=== PATIENT | male | born 1975 | race Caucasian/White ===

== ENCOUNTER 2019-12-01 16:21 | Outpatient (REF) | payer MEDICAID, SELFPAY ==
[2019-12-01 17:02] LABS: MANUAL DIFF FLAG NO
[2019-12-01 17:05] LABS: Basophils Percent Auto 0.4 % (0-2); Eosinophils Absolute Auto 0.1 X10*3/uL (0.0-0.4); Eosinophils Percent Auto 1.1 % (0-4); Hemoglobin 15.5 g/dl (14.0-18.0); Imm Gran Abs Auto 0.02 X10*3/uL (0.00-0.03); Imm Gran Pct Auto 0.2 % (0.0-0.4); Lymphocytes Absolute Auto 2.4 X10*3/uL (1.2-4.9); Lymphocytes Percent Auto 27.8 % (20-40); Mean Corpuscular HGB Conc 34.4 g/dl (31.0-36.0); Mean Corpuscular Hemoglobin 34.1 pg (27.0-33.0); Mean Corpuscular Volume 99.1 fL (80-98); Mean Platelet Volume 10.2 fL (9.4-12.4); Monocytes Absolute Auto 0.6 X10*3/uL (0.1-1.2); Monocytes Percent Auto 7.4 % (2-11); Neutrophils Absolute Auto 5.4 X10*3/uL (2.0-8.3); Neutrophils Percent Auto 63.1 % (45-73); Platelet Count 178 X10*3/uL (160-400); Red Blood Count 4.54 X10*6/uL (4.60-5.80); Red Cell Distribution Width 13.7 % (11.0-16.0); White Blood Count 8.6 X10*3/uL (4.8-10.8)
[2019-12-01 17:35] LABS: Alanine Aminotransferase 63 U/L (0-40); Alkaline Phosphatase 80 U/L (39-117); Anion Gap 11 (12-20); Aspartate Amino Transferase 56 U/L (5-37); Bilirubin Total 0.5 mg/dL (0.0-1.0); Blood Urea Nitrogen 10 mg/dL (9-16); C Reactive Protein 0.77 mg/dL (< or = 0.50); Calcium 9.3 mg/dL (8.4-10.2); Carbon Dioxide 28 mmol/L (22-29); Chloride 102 mmol/L (96-108); Estimated Glomerular Filt Rate > 60; Glucose Random 115 mg/dL (60-115); Potassium 3.9 mmol/l (3.3-5.1); Sodium 137 mmol/L (135-145); Total Protein 7.7 g/dL (6.5-8.0)
[2019-12-01 17:57] LABS: Vitamin B12 426 pg/mL (200-900)
== END 2019-12-01 16:22 | disposition home or self-care (01) ==
LOC: HO.LAB 16:21
PROVIDERS: PCP Family Medicine; Visit Provider Internal Medicine Gastroenterology
DX: K52.9 Noninfective gastroenteritis and colitis, unspecified (principal)
CPT/HCPCS: 36415; 80053; 82607; 85025; 86140

== ENCOUNTER → 2019-12-05 09:40 | Outpatient (BNVA) | payer MEDICAID, SELFPAY | PROVIDERS: PCP Family Medicine; Referring Provider Family Medicine; Visit Provider Internal Medicine Gastroenterology | DX: K74.69 Other cirrhosis of liver (principal); K31.7 Polyp of stomach and duodenum; G89.29 Other chronic pain; R10.13 Epigastric pain | CPT/HCPCS: 99213 ==

== ENCOUNTER 2019-12-24 11:33 | Emergency (ER) | payer MEDICAID, SELFPAY ==
[2019-12-24 11:40] VITALS: BP 126/80; PULSE 80; RESP 18; TEMP 36.3; O2SAT 98; BMI 38.0
--- NOTE | 2019-12-24 11:56 | ED.BACK ---
HPI - Back Pain/Injury General Chief Complaint: Back Pain/Injury Stated Complaint: left back side pain Time Seen by Provider: 12/24/19 11:41 Source: patient Mode of arrival: ambulatory History of Present Illness HPI Narrative: 44-year-old male presenting to ED complaining of acute on chronic L sided low back pain x7 days radiating to left thigh with associated tingling. Denies direct trauma/falls. Denies fever, chills, weakness, incontinence, retention MD elicited complaint: back pain Related Data Home Medications Medication Instructions Recorded Confirmed amlodipine 5 mg tablet 5 mg PO DAILY 11/15/19 baclofen 20 mg tablet 20 mg PO QID 11/15/19 chlorthalidone 25 mg tablet 25 mg PO DAILY 11/15/19 cholecalciferol (vitamin D3) 25 25 mcg PO DAILY 11/15/19 mcg (1,000 unit) tablet dexlansoprazole 60 mg 60 mg PO DAILY 11/15/19 capsule,biphase delayed release exenatide microspheres 2 mg/0.65 2 mg SUBCUT Q7D 11/15/19 mL subcutaneous pen injector insulin lispro 100 unit/mL 10.5 unit SUBCUT BEDTIME 11/15/19 subcutaneous half-unit pen lancets 33 gauge #100 ea 11/15/19 lisinopril 40 mg tablet 40 mg PO DAILY 11/15/19 metoprolol succinate 50 mg 50 mg PO DAILY 11/15/19 tablet,extended release 24 hr naproxen 500 mg tablet 500 mg PO BID 11/15/19 ondansetron 4 mg disintegrating 4 mg PO Q8H 11/15/19 tablet pen needle, diabetic 32 gauge x #50 ea 11/15/19 pentoxifylline 400 mg 400 mg PO BID 11/15/19 tablet,extended release sildenafil 100 mg tablet 100 mg PO DAILY PRN 11/15/19 tamsulosin 0.4 mg capsule 0.4 mg PO DAILY 11/15/19 tramadol 50 mg tablet 50 mg PO Q8H PRN 11/15/19 Previous Rx's Medication Instructions Recorded acetaminophen [Tylenol Extra 500 mg PO Q6H PRN #20 tab 12/24/19 Strength] cyclobenzaprine 5 mg PO Q8H PRN 5 Days #14 tab 12/24/19 lidocaine [Lidoderm] 1 patch TOPICAL DAILY PRN #30 ea 12/24/19 MDD remove after 12 hours naproxen 500 mg PO BID PRN 10 Days #20 tab 12/24/19 Allergies Allergy/AdvReac Type Severity Reaction Status Date / Time ranitidine [From ZANTAC] Allergy Severe DIFFICULTY Verified 12/24/19 11:44 BREATHING, ITCHING Review of Systems Review of Systems: Constitutional: No Weight loss, No Fever, No Chills Genitourinary: No dysuria, no hematuria, No Urinary Incontinence/retention, No Urgency, No Flank Pain Musculoskeletal: + joint pain, No Myalgias, No Joint Swelling Skin: No Skin Lesions, No rash Neuro: No Weakness, +tingling, No Paresthesias Yes all other systems are reviewed and are negative [facility] Past Medical History Attestation statement: The following information was validated with the patient. Medical History (Updated 12/24/19 @ 12:10 by SOURAV Paz) Chronic back pain Surgical History (Updated 12/05/19 @ 09:42 by Aubree Theodore MA) History of esophagogastroduodenoscopy (EGD) History of left knee surgery S/P cubital tunnel release Family History Family History (Updated 11/15/19 @ 12:40 by NERI Moreno) Father No problems noted. Mother HTN (hypertension) Sister Type II diabetes mellitus Social History Social History (Updated 12/05/19 @ 09:45 by Aubree Theodore MA) Alcohol intake: current Alcohol intake frequency: a few times a month Smoking Status: Current some day smoker Tobacco Type: Cigarette Advance Directives: No Advance Directives Information Provided: No Physical Exam Vital Signs: Vital Signs: Last Vital Signs Temp 97.3 F 12/24/19 11:40 Pulse 80 12/24/19 11:40 Resp 18 12/24/19 11:40 BP 126/80 12/24/19 11:40 Pulse Ox 98 12/24/19 11:40 Body Mass Index 38.0 Const: General: cooperative and healthy appearing Orientation/consciousness: patient oriented x3 Limitations: no limitations HENMT: Head: Yes normal to inspection Ears: hearing grossly normal bilaterally General nose exam: Normal external nose present Face and sinus: Yes normal facial exam Eyes: General: appearance normal, both eyes and all related structures EOM: EOMs intact bilaterally Neck: Other: No midline cervical spinous tenderness Neck: Yes normal visual inspection Resp: Effort & Inspection: normal respiratory effort : General: Yes no CVA tenderness Back/Spine/Pelvis: Other: No midline thoracic/lumbar spinous tenderness. + left-sided lumbar MSK tenderness/left buttock tenderness Back: no CVA tenderness Skin: Rashes: no rashes Wounds: no wounds Neuro: Other: No saddle anesthesia. Ambulating with limping gait General: patient oriented x3 Motor exam (neuro): 5/5 motor strength present throughout Extrem: General: Yes normal to inspection MDM - Back Pain/Injury MDM Narrative Medical decision making narrative: On exam VSS, NAD, no midline spinous tenderness throughout, no red flag symptoms. Likely MSK pain. Low concern for cauda equina or cord compression Patient has tramadol at home, reports has refill on Thursday Discharge Plan Discharge Clinical Impression: Lumbar radiculopathy, Sciatica Patient Disposition: Home, Self-Care Instructions: Acute Low Back Pain (ED) Additional Instructions: Your pain is likely musculoskeletal Flexeril is a muscle relaxer, take at night as it makes you drowsy, do not drive, drink alcohol, or operate machinery while taking it Naproxen as an anti-inflammatory / pain medication, take with food Lidoderm patches are numbing patches, apply to painful area In addition take Tylenol at home If symptoms persist or worsen, pain becomes unbearable, you developed urinary retention or incontinence, or weakness return to the ED Prescriptions: New acetaminophen [Tylenol Extra Strength] 500 mg tablet 500 mg PO Q6H PRN (Reason: pain or fever) Qty: 20 RF: 0 lidocaine [Lidoderm] 5 % adhesive patch,medicated 1 patch topical DAILY MDD remove after 12 hours PRN (Reason: pain) Qty: 30 RF: 0 naproxen 500 mg tablet 500 mg PO BID PRN (Reason: pain) 10 Days Qty: 20 RF: 0 cyclobenzaprine 5 mg tablet 5 mg PO Q8H PRN (Reason: pain (scale score 7-10)) 5 Days Qty: 14 RF: 0 Referrals: Hanna Ocasio MD [Primary Care Provider] - 2 days
[2019-12-24] MEDS: Cyclobenzaprine HCl 5 MG TABLET PO (12:05)
[2019-12-24] MEDS: Ketorolac Tromethamine 15 MG/ML VIAL IM (12:05)
--- NOTE | 2019-12-24 12:05 | PC.NURSE ---
SEEN BY PROVIDER. MEDIATED PER ORDERS
== END 2019-12-24 12:39 | disposition home or self-care (01) ==
PROVIDERS: Emergency Provider Emergency Medicine; PCP Family Medicine
DX: M54.42 Lumbago with sciatica, left side (principal); M54.41 Lumbago with sciatica, right side; M79.652 Pain in left thigh; Z79.899 Other long term (current) drug therapy; F17.210 Nicotine dependence, cigarettes, uncomplicated; Z71.6 Tobacco abuse counseling
CPT/HCPCS: 96372; 99283; 99284; J1885

== ENCOUNTER 2019-12-29 16:20 | Outpatient (REF) | payer MEDICAID, SELFPAY | END 2019-12-29 16:21 | disposition home or self-care (01) | LOC: HO.LAB 16:20 | PROVIDERS: Visit Provider Internal Medicine | DX: Z20.828 Contact with and (suspected) exposure to other viral communicable diseases (principal) | CPT/HCPCS: C9803; U0003 ==

== ENCOUNTER 2020-01-08 12:56 | Emergency (ER) | payer MEDICAID, SELFPAY ==
[2020-01-08 13:16] VITALS: BP 139/93; PULSE 94; RESP 20; TEMP 36.8; O2SAT 98; BMI 43.4
--- NOTE | 2020-01-08 13:41 | CT_ITS ---
EXAMINATION: CT ABDOMEN AND PELVIS WITHOUT CONTRAST CLINICAL INFORMATION: Left-sided flank pain COMPARISON: Previous abdominal ultrasound October 2018, MRI February [address] of the abdomen and pelvis October 2012 TECHNIQUE: Multidetector volumetric imaging was performed from the superior aspect of the liver through the pubic symphysis. Sagittal and coronal reformatted images were obtained on the technologist's workstation. This CT examination was performed using dose optimization techniques as appropriate, variously including the following: *Automated exposure control *Adjustment of mA and/or kV according to patient size (this includes techniques or standardized protocols for targeted exams where dose is matched to indication/reason for exam; i.e. extremities or head) *Use of iterative reconstruction technique DLP: 937 mGy-cm FINDINGS: LUNG BASES: There is a 2.7 x 3.6 cm area of groundglass attenuation in the right middle lobe axial image 6 series 7. There is a 2.3 x 4 cm groundglass attenuation area seen in the left lower lobe. This is not seen on previous CT from 2012. LIVER, GALLBLADDER, AND BILIARY TREE: The contour of the liver is slightly scalloped or irregular questionable for mild cirrhosis. No focal liver lesion is seen. There is high attenuation dependently in the gallbladder suggestive of small gallstones. There is no biliary duct dilatation. PANCREAS: Unremarkable. SPLEEN: The spleen is slightly enlarged measuring 17 cm in greatest dimension sagittal reconstructed image 47. ADRENAL GLANDS: Unremarkable. KIDNEYS AND URETERS: The kidneys are normal in size, shape, and attenuation. No hydronephrosis, hydroureter, or calculi seen. No perinephric stranding. BLADDER: Not optimally distended GASTROINTESTINAL TRACT: There is mild diverticulosis of the colon. Small and large bowel is otherwise unremarkable. The appendix is unremarkable. ABDOMINAL WALL: There is a small umbilical hernia containing fat. LYMPH NODES: Normal. VASCULAR: Unremarkable. PELVIC VISCERA: Unremarkable. OSSEOUS STRUCTURES: There are degenerative changes of the spine. CT/CT abdomen pelvis wo con IMPRESSION: Cirrhotic-appearing liver. Probable gallstones. Mild splenomegaly. Mild diverticulosis of the colon. Groundglass attenuation areas at the lung bases in the right middle and left lower lobes. This is a nonspecific finding. This probably represents an infectious or inflammatory process. Covid infection should be excluded.
[2020-01-08] MEDS: Ketorolac Tromethamine 60 MG/2 ML VIAL IM (13:51)
[2020-01-08 14:07] LABS: Basophils Percent Auto 0.2 % (0-2); Eosinophils Percent Auto 0.5 % (0-4); Hematocrit 47.2 % (42-52); Hemoglobin 16.1 g/dl (14.0-18.0); Imm Gran Abs Auto 0.01 X10*3/uL (0.00-0.03); Imm Gran Pct Auto 0.2 % (0.0-0.4); Lymphocytes Absolute Auto 2.2 X10*3/uL (1.2-4.9); Lymphocytes Percent Auto 37.4 % (20-40); MANUAL DIFF FLAG NO; Mean Corpuscular HGB Conc 34.1 g/dl (31.0-36.0); Mean Corpuscular Hemoglobin 33.8 pg (27.0-33.0); Mean Corpuscular Volume 99.2 fL (80-98); Mean Platelet Volume 10.2 fL (9.4-12.4); Monocytes Absolute Auto 0.6 X10*3/uL (0.1-1.2); Monocytes Percent Auto 10.8 % (2-11); Neutrophils Percent Auto 50.9 % (45-73); Platelet Count 149 X10*3/uL (160-400); Red Blood Count 4.76 X10*6/uL (4.60-5.80); Red Cell Distribution Width 13.4 % (11.0-16.0); White Blood Count 5.9 X10*3/uL (4.8-10.8)
[2020-01-08 14:11] LABS: Glucose Urine UA NEG (NEG); Leukocyte Esterase Urine NEG (NEG); Nitrite Urine NEG (NEG); PH 6.5 (5.0-8.0); Specific Gravity - Urine 1.025 (1.005-1.025); Urine Blood NEG (NEG); Urine Ketones 5 MG/DL (NEG); Urine Protein NEG (NEG-TRACE)
[2020-01-08 14:14] LABS: Appearance Urine CLEAR; Color Urine DARK YELLOW
[2020-01-08 14:23] LABS: Mucus Urine 1+ /LPF; RBC Urine 0-2 /HPF (0); Squamous Epithelial Cell Urine 1+ /LPF; WBC Urine 0 /HPF (0-4)
[2020-01-08 14:30] LABS: Alanine Aminotransferase 68 U/L (0-40); Albumin Level 3.8 g/dL (3.5-5.0); Alkaline Phosphatase 81 U/L (39-117); Anion Gap 11 (12-20); Aspartate Amino Transferase 63 U/L (5-37); Bilirubin Total 0.2 mg/dL (0.0-1.0); Blood Urea Nitrogen 12 mg/dL (9-16); Calcium 8.6 mg/dL (8.4-10.2); Carbon Dioxide 26 mmol/L (22-29); Chloride 104 mmol/L (96-108); Creatinine Clr Calc Pharmacy 158.4; Estimated Glomerular Filt Rate > 60; Glucose Random 115 mg/dL (60-115); Potassium 3.9 mmol/l (3.3-5.1); Sodium 137 mmol/L (135-145); Total Protein 7.6 g/dL (6.5-8.0)
[2020-01-08 14:43] VITALS: BP 132/72; PULSE 82; RESP 18; TEMP 36.8; O2SAT 100
--- NOTE | 2020-01-08 16:17 | ED_ITS ---
HPI - Back Pain/Injury General Chief Complaint: Back Pain/Injury Stated Complaint: back pain Time Seen by Provider: 01/08/20 13:41 Source: patient Mode of arrival: ambulatory Limitations: no limitations History of Present Illness HPI Narrative: With history of hypertension, type 2 diabetes and obesity presenting with complaint of this lower back pain ongoing for past 2 weeks or so pain is describes as intermittent and ache-like. States was here 2 weeks ago given course of NSAID, muscle relaxants which has some improvement however pain continues and he returned today. Denies any GI symptoms. Slight rhinorrhea which contributes to seasonal allergies. No chest pain or shortness of breath. MD elicited complaint: back pain Pertinent past history: prior back pain Onset (ago): day(s) Timing: intermittent Severity: moderate Similar Symptoms Previously: Yes Quality: aching Location: lumbar spine Radiation: other (Sometimes will travel down the left leg) Exacerbating factors: none Associated symptoms: denies other symptoms Treatments prior to arrival: cold therapy Work related injury: No Related Data Home Medications Medication Instructions Recorded Confirmed amlodipine 5 mg tablet 5 mg PO DAILY 11/15/19 baclofen 20 mg tablet 20 mg PO QID 11/15/19 chlorthalidone 25 mg tablet 25 mg PO DAILY 11/15/19 cholecalciferol (vitamin D3) 25 25 mcg PO DAILY 11/15/19 mcg (1,000 unit) tablet dexlansoprazole 60 mg 60 mg PO DAILY 11/15/19 capsule,biphase delayed release exenatide microspheres 2 mg/0.65 2 mg SUBCUT Q7D 11/15/19 mL subcutaneous pen injector insulin lispro 100 unit/mL 10.5 unit SUBCUT BEDTIME 11/15/19 subcutaneous half-unit pen lancets 33 gauge #100 11/15/19 lisinopril 40 mg tablet 40 mg PO DAILY 11/15/19 metoprolol succinate 50 mg 50 mg PO DAILY 11/15/19 tablet,extended release 24 hr naproxen 500 mg tablet 500 mg PO BID 11/15/19 ondansetron 4 mg disintegrating 4 mg PO Q8H 11/15/19 tablet pen needle, diabetic 32 gauge x #50 11/15/19 pentoxifylline 400 mg 400 mg PO BID 11/15/19 tablet,extended release sildenafil 100 mg tablet 100 mg PO DAILY PRN 09/29/20 tamsulosin 0.4 mg capsule 0.4 mg PO DAILY 11/15/19 Previous Rx's Medication Instructions Recorded acetaminophen [Tylenol Extra 500 mg PO Q6H PRN #20 tab 12/24/19 Strength] cyclobenzaprine 5 mg PO Q8H PRN 5 Days #14 tab 12/24/19 lidocaine [Lidoderm] 1 patch TOPICAL DAILY PRN #30 ea 12/24/19 MDD remove after 12 hours naproxen 500 mg PO BID PRN 10 Days #20 tab 12/24/19 azithromycin [Zithromax Z-Keith] 250 mg PO DAILY 5 Days #6 tab 01/08/20 ibuprofen 800 mg PO Q8H PRN #30 tab 01/08/20 oxycodone 5 mg PO BID PRN #7 tab 01/08/20 prednisone 40 mg PO DAILY 5 Days #10 tab 01/08/20 Allergies Allergy/AdvReac Type Severity Reaction Status Date / Time ranitidine [From ZANTAC] Allergy Severe DIFFICULTY Verified 12/24/19 11:44 BREATHING, ITCHING Review of Systems Review of Systems: Constitutional: No Weight loss, No Fever, No Chills, No Night Sweats, No Fatigue, No Malaise ENT/Mouth: No Hearing loss, No Ear Pain, No Nasal Congestion, No Sinus Pain, No Hoarseness, No sore throat, No Rhinorrhea, No Swallowing Difficulty Eyes: No Eye Pain, No Swelling, No Redness, No Foreign Body, No Discharge, No Vision Changes Cardiovascular: No Chest Pain, No SOB, No Dyspnea on Exertion, No Orthopnea, No Edema, No Palpitations Respiratory: No Cough, No Sputum, No Wheezing, No Smoke Exposure, No Dyspnea Gastrointestinal: No Nausea, No Vomiting, No Diarrhea, No Constipation, No abd ominal Pain Genitourinary: no irregular bleeding, No Dysuria, No Urinary Frequency, No Hematuria, No Urinary Incontinence, No Urgency, No Flank Pain Musculoskeletal: No joint pain, No Myalgias, No Joint Swelling+ back pain Skin: No Skin Lesions, No rash Neuro: No Weakness, No Numbness, No Paresthesias, No Loss of Consciousness, No Dizziness, No Headache Psych: No Social Issues Heme/Lymph: No Bruising, No Bleeding,No Lymphadenopathy Endocrine: No Polyuria, No Polydipsia, No Temperature Intolerance Yes all other systems are reviewed and are negative [facility] Past Medical History Medical History (Updated 01/09/20 @ 00:00 by Tripp Harrison) Chronic back pain Surgical History (Updated 12/05/19 @ 09:42 by Aubree Theodore MA) History of esophagogastroduodenoscopy (EGD) History of left knee surgery S/P cubital tunnel release Family History Family History (Updated 11/15/19 @ 12:40 by NERI Moreno) Father No problems noted. Mother HTN (hypertension) Sister Type II diabetes mellitus Social History Social History (Updated 12/05/19 @ 09:45 by Aubree Theodore MA) Alcohol intake: current Alcohol intake frequency: former alcohol drinker Smoking Status: Former smoker Tobacco Type: Cigarette Use of substances other than those prescribed or required for medical reasons: No Advance Directives: No Advance Directives Information Provided: No Physical Exam Vital Signs: Vital Signs: Last Vital Signs Temp 98.3 F 01/08/20 14:43 Pulse 82 01/08/20 14:43 Resp 18 01/08/20 14:43 BP 132/72 01/08/20 14:43 Pulse Ox 100 01/08/20 14:43 Body Mass Index 43.4 Reviewed Const: General: cooperative and healthy appearing; No acute distress or intoxicated appearing Nutritional Appearance: average body habitus Orientation/consciousness: patient oriented x3 HENMT: Head: Yes normal to inspection Ears: hearing grossly normal bilaterally Eyes: General: appearance normal, both eyes and all related structures Visual Juarez: normal visual juarez by confrontation Neck: Neck: Yes normal visual inspection, No positive Brudzinski's sign, No positive Kernig's sign and No tender Thyroid: Thyroid normal Chest: Chest palpation & inspection: normal inspection of the chest Resp: Effort & Inspection: normal respiratory effort Cardio: Jugular venous distension: no JVD GI: Inspection: Yes normal to inspection Percussion: Yes normal to percussion Auscultation: normal bowel sounds : General: Yes no CVA tenderness Back/Spine/Pelvis: Back: no CVA tenderness Thoracic/Lumbar Spine: paraspinal muscle tenderness on the left Skin: General skin exam: no rashes or lesions noted Neuro: General: patient oriented x3 Extrem: General: Yes normal to inspection Course Course Course Narrative: CT/x-ray findings reviewed with the patient. Labs overall stable. COVID-19 positive. Pain could be variation of COVID-19 symptoms with myofascial pain versus lumbar strain. Will discharge home with supportive care return and follow-up instructions. Patient hemodynamically stable. Pulse ox 99% on room air afebrile. Feels better after IM Toradol and comfortable plan. CDC guidelines, return, follow-up instructions provided. MDM - Back Pain/Injury Differential Diagnosis Differential diagnosis: Likely lumbar radiculopathy, sciatica and strain of lumbar region; Unlikely renal colic, pyelonephritis, thoracic back pain, AAA and discitis Medical Records Attestation: I reviewed the patient's medical records. Lab Data Attestation: I reviewed the patient's lab results. Result diagrams: 01/08/20 14:02 01/08/20 14:02 Labs: Lab Results 01/08/20 01/08/20 01/08/20 Range/Units 14:01 14:02 14:02 WBC 5.9 (4.8-10.8) X10*3/uL RBC 4.76 (4.60-5.80) X10*6/uL Hgb 16.1 (14.0-18.0) g/dl Hct 47.2 (42-52) % MCV 99.2 H (80-98) fL MCH 33.8 H (27.0-33.0) pg MCHC 34.1 (31.0-36.0) g/dl RDW 13.4 (11.0-16.0) % Plt Count 149 L (160-400) X10*3/uL MPV 10.2 (9.4-12.4) fL Immature Gran % (Auto) 0.2 (0.0-0.4) % Neut % (Auto) 50.9 (45-73) % Lymph % (Auto) 37.4 (20-40) % Luna % (Auto) 10.8 (2-11) % Eos % (Auto) 0.5 (0-4) % Baso % (Auto) 0.2 (0-2) % Lymph # (Auto) 2.2 (1.2-4.9) X10*3/uL Luna # (Auto) 0.6 (0.1-1.2) X10*3/uL Eos # (Auto) 0.0 (0.0-0.4) X10*3/uL Baso # (Auto) 0.0 (0.0-0.2) X10*3/uL Abs Immat Gran (auto) 0.01 (0.00-0.03) X10*3/uL Absolute Neuts (auto) 3.0 (2.0-8.3) X10*3/uL Absolute Nucleated RBC 0.000 (0.0-0.012) X10*3/uL Nucleated RBC % (auto) 0.0 (0.0-0.2) /100WBC Sodium 137 (135-145) mmol/L Potassium 3.9 (3.3-5.1) mmol/l Chloride 104 (96-108) mmol/L Carbon Dioxide 26 (22-29) mmol/L Anion Gap 11 L (12-20) BUN 12 (9-16) mg/dL Creatinine 0.79 (0.5-1.4) mg/dL Estim Creat Clear Calc 158.4 Estimated GFR > 60 Random Glucose 115 (60-115) mg/dL Calcium 8.6 D (8.4-10.2) mg/dL Total Bilirubin 0.2 (0.0-1.0) mg/dL AST 63 H (5-37) U/L ALT 68 H (0-40) U/L Alkaline Phosphatase 81 (39-117) U/L Total Protein 7.6 (6.5-8.0) g/dL Albumin 3.8 (3.5-5.0) g/dL Urine Color DARK YELLOW Urine Appearance CLEAR Urine pH 6.5 (5.0-8.0) Ur Specific Economy 1.025 (1.005-1.025) Urine Protein NEG (NEG-TRACE) MG/DL Urine Glucose (UA) NEG (NEG) MG/DL Urine Ketones 5 (NEG) MG/DL Urine Blood NEG (NEG) Urine Nitrite NEG (NEG) Ur Leukocyte Esterase NEG (NEG) Urine RBC 0-2 (0) /HPF Urine WBC 0 (0-4) /HPF Ur Squamous Epith Cells 1+ /LPF Urine Bacteria NONE /LPF Urine Mucus 1+ /LPF Coronavirus (PCR) (Negative) Influenza Type A (PCR) (Negative) Influenza Type B (PCR) (Negative) RSV RNA Qual (PCR) (Negative) 01/08/20 Range/Units 16:29 WBC (4.8-10.8) X10*3/uL RBC (4.60-5.80) X10*6/uL Hgb (14.0-18.0) g/dl Hct (42-52) % MCV (80-98) fL MCH (27.0-33.0) pg MCHC (31.0-36.0) g/dl RDW (11.0-16.0) % Plt Count (160-400) X10*3/uL MPV (9.4-12.4) fL Immature Gran % (Auto) (0.0-0.4) % Neut % (Auto) (45-73) % Lymph % (Auto) (20-40) % Luna % (Auto) (2-11) % Eos % (Auto) (0-4) % Baso % (Auto) (0-2) % Lymph # (Auto) (1.2-4.9) X10*3/uL Luna # (Auto) (0.1-1.2) X10*3/uL Eos # (Auto) (0.0-0.4) X10*3/uL Baso # (Auto) (0.0-0.2) X10*3/uL Abs Immat Gran (auto) (0.00-0.03) X10*3/uL Absolute Neuts (auto) (2.0-8.3) X10*3/uL Absolute Nucleated RBC (0.0-0.012) X10*3/uL Nucleated RBC % (auto) (0.0-0.2) /100WBC Sodium (135-145) mmol/L Potassium (3.3-5.1) mmol/l Chloride (96-108) mmol/L Carbon Dioxide (22-29) mmol/L Anion Gap (12-20) BUN (9-16) mg/dL Creatinine (0.5-1.4) mg/dL Estim Creat Clear Calc Estimated GFR Random Glucose (60-115) mg/dL Calcium (8.4-10.2) mg/dL Total Bilirubin (0.0-1.0) mg/dL AST (5-37) U/L ALT (0-40) U/L Alkaline Phosphatase (39-117) U/L Total Protein (6.5-8.0) g/dL Albumin (3.5-5.0) g/dL Urine Color Urine Appearance Urine pH (5.0-8.0) Ur Specific Economy (1.005-1.025) Urine Protein (NEG-TRACE) MG/DL Urine Glucose (UA) (NEG) MG/DL Urine Ketones (NEG) MG/DL Urine Blood (NEG) Urine Nitrite (NEG) Ur Leukocyte Esterase (NEG) Urine RBC (0) /HPF Urine WBC (0-4) /HPF Ur Squamous Epith Cells /LPF Urine Bacteria /LPF Urine Mucus /LPF Coronavirus (PCR) POSITIVE A (Negative) Influenza Type A (PCR) NEGATIVE (Negative) Influenza Type B (PCR) NEGATIVE (Negative) RSV RNA Qual (PCR) NEGATIVE (Negative) Imaging Data CT scan - abdomen: Radiologist's impression: [place] [address] CT Scan Report Signed Patient: Christian Tan#: [id number] : 1975Acct:[id number] Age/Sex: 44 / MADM Date: 01/08/20 Loc: HO.ED Attending Dr: Ordering Physician: Rishi Cloud NP Date of Service: 01/08/20 Procedure(s): CT abdomen pelvis wo con Accession Number(s): [id number] cc: Rishi Cloud NP~ EXAMINATION: CT ABDOMEN AND PELVIS WITHOUT CONTRAST CLINICAL INFORMATION: Left-sided flank pain COMPARISON: Previous abdominal ultrasound October 2018, MRI February [address] of the abdomen and pelvis October 2012 TECHNIQUE: Multidetector volumetric imaging was performed from the superior aspect of the liver through the pubic symphysis. Sagittal and coronal reformatted images were obtained on the technologist's workstation. This CT examination was performed using dose optimization techniques as appropriate, variously including the following: *Automated exposure control *Adjustment of mA and/or kV according to patient size (this includes techniques or standardized protocols for targeted exams where dose is matched to indication/reason for exam; i.e. extremities or head) *Use of iterative reconstruction technique DLP: 937 mGy-cm FINDINGS: LUNG BASES: There is a 2.7 x 3.6 cm area of groundglass attenuation in the right middle lobe axial image 6 series 7. There is a 2.3 x 4 cm groundglass attenuation area seen in the left lower lobe. This is not seen on previous CT from 2013. LIVER, GALLBLADDER, AND BILIARY TREE: The contour of the liver is slightly scalloped or irregular questionable for mild cirrhosis. No focal liver lesion is seen. There is high attenuation dependently in the gallbladder suggestive of small gallstones. There is no biliary duct dilatation. PANCREAS: Unremarkable. SPLEEN: The spleen is slightly enlarged measuring 17 cm in greatest dimension sagittal reconstructed image 47. ADRENAL GLANDS: Unremarkable. KIDNEYS AND URETERS: The kidneys are normal in size, shape, and attenuation. No hydronephrosis, hydroureter, or calculi seen. No perinephric stranding. BLADDER: Not optimally distended GASTROINTESTINAL TRACT: There is mild diverticulosis of the colon. Small and large bowel is otherwise unremarkable. The appendix is unremarkable. ABDOMINAL WALL: There is a small umbilical hernia containing fat. LYMPH NODES: Normal. VASCULAR: Unremarkable. PELVIC VISCERA: Unremarkable. OSSEOUS STRUCTURES: There are degenerative changes of the spine. CT/CT abdomen pelvis wo con IMPRESSION: Cirrhotic-appearing liver. Probable gallstones. Mild splenomegaly. Mild diverticulosis of the colon. Groundglass attenuation areas at the lung bases in the right middle and left lower lobes. This is a nonspecific finding. This probably represents an infectious or inflammatory process. Covid infection should be excluded. 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 COMPARISON: Most recent chest radiograph dated 03/04/2018. TECHNIQUE: Frontal view of the chest was obtained. FINDINGS: Hypoinflation of the lungs without focal airspace consolidation. No pleural effusion or pneumothorax. Stable cardiomediastinal silhouette. No acute osseous abnormality. XR/XR chest 1V IMPRESSION: Unremarkable examination. 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: SR Discharge Plan Discharge Clinical Impression: Acute lumbar myofascial strain, COVID-19 Patient Disposition: Home, Self-Care Instructions: Low Back Strain (ED), Lower Back Exercises (ED), COVID-19 (Coronavirus Disease 2019) (ED) Prescriptions: New azithromycin [Zithromax Z-Keith] 250 mg tablet 250 mg PO DAILY 5 Days Qty: 6 RF: 0 ibuprofen 800 mg tablet 800 mg PO Q8H PRN (Reason: pain) Qty: 30 RF: 0 prednisone 20 mg tablet 40 mg PO DAILY 5 Days Qty: 10 RF: 0 oxycodone 5 mg tablet 5 mg PO BID PRN (Reason: pain) Qty: 7 RF: 0 No Action acetaminophen [Tylenol Extra Strength] 500 mg tablet 500 mg PO Q6H PRN (Reason: pain or fever) Qty: 20 RF: 0 lidocaine [Lidoderm] 5 % adhesive patch,medicated 1 patch topical DAILY MDD remove after 12 hours PRN (Reason: pain) Qty: 30 RF: 0 naproxen 500 mg tablet 500 mg PO BID PRN (Reason: pain) 10 Days Qty: 20 RF: 0 cyclobenzaprine 5 mg tablet 5 mg PO Q8H PRN (Reason: pain (scale score 7-10)) 5 Days Qty: 14 RF: 0 Referrals: Hanna Ocasio MD [Primary Care Provider] - 10 days Stand Alone Forms: Work/School Release Interventions: ED Discharge Assessment Last Done: 01/08/20 17:47 Discharge Date/Time: 01/08/20 17:45
--- NOTE | 2020-01-08 16:35 | XR_ITS ---
EXAMINATION: XR CHEST CLINICAL INFORMATION: Cough. COMPARISON: Most recent chest radiograph dated 03/04/2018. TECHNIQUE: Frontal view of the chest was obtained. FINDINGS: Hypoinflation of the lungs without focal airspace consolidation. No pleural effusion or pneumothorax. Stable cardiomediastinal silhouette. No acute osseous abnormality. XR/XR chest 1V IMPRESSION: Unremarkable examination.
[2020-01-08 17:22] LABS: Influenza A PCR NEGATIVE (Negative); Influenza B PCR NEGATIVE (Negative); Resp Syncy Virus RNA Qual PCR NEGATIVE (Negative)
[2020-01-08 17:28] LABS: SARS COV2 PCR INHOUSE POSITIVE (Negative)
== END 2020-01-08 17:45 | disposition home or self-care (01) ==
PROVIDERS: Nurse Practitioner Primary Care; Emergency Provider Emergency Medicine; PCP Family Medicine
DX: S39.012A Strain of muscle, fascia and tendon of lower back, initial encounter (principal); U07.1 COVID-19; I10 Essential (primary) hypertension; E11.9 Type 2 diabetes mellitus without complications; R10.9 Unspecified abdominal pain; X58.XXXA Exposure to other specified factors, initial encounter; Y93.9 Activity, unspecified; Y92.9 Unspecified place or not applicable; Y99.9 Unspecified external cause status; Z79.899 Other long term (current) drug therapy; Z87.891 Personal history of nicotine dependence
CPT/HCPCS: 0241U; 36415; 71045; 74176; 80053; 81001; 85025; 96372; 99284; J1885

== ENCOUNTER 2020-01-16 11:35 | Emergency (ER) | payer MEDICAID, SELFPAY ==
[2020-01-16 12:17] VITALS: BP 134/86; PULSE 105; RESP 20; TEMP 37.7; O2SAT 99; BMI 42.5
--- NOTE | 2020-01-16 12:40 | ED_ITS ---
HPI - Male Genitourinary General Chief complaint: Urogenital-Male Stated complaint: BLOOD IN URINE Time Seen by Provider: 01/16/20 12:34 Source: patient and language interpreter Mode of arrival: ambulatory Limitations: no limitations and language barrier History of Present Illness HPI Narrative: 44-year-old male with a past medical history of chronic back pain, liver cirrhosis here with acute on chronic left lower back pain which radiates to left buttocks and left leg. Intermittent numbness/tingling. No bowel or bladder Incontinence. No saddle anesthesia. Of note the patient was diagnosed with COVID-19 on January 07. He did have a CT abdomen /pelvis on that day for left flank pain which was negative for renal colic. No new injury or trauma. Patient does tell me he has had some gross hematuria which he noticed since yesterday. He has some associated frequency with no dysuria. No testicular pain, penile discharge. He is sexually active with 1 partner. He does not use condoms. He does tell me that his was complaining of some vaginal discharge for the last few days. No fevers, chills, vomiting, diarrhea. MD Complaint: other (hematuria ) Onset (ago): day(s) Duration: constant Relieving factors: none Exacerbating factors: none Context: new medication Associated symptoms: Reports blood in urine Related Data Home Medications Medication Instructions Recorded Confirmed amlodipine 5 mg tablet 5 mg PO DAILY 11/15/19 baclofen 20 mg tablet 20 mg PO QID 11/15/19 chlorthalidone 25 mg tablet 25 mg PO DAILY 11/15/19 cholecalciferol (vitamin D3) 25 25 mcg PO DAILY 11/15/19 mcg (1,000 unit) tablet dexlansoprazole 60 mg 60 mg PO DAILY 11/15/19 capsule,biphase delayed release exenatide microspheres 2 mg/0.65 2 mg SUBCUT Q7D 11/15/19 mL subcutaneous pen injector insulin lispro 100 unit/mL 10.5 unit SUBCUT BEDTIME 11/15/19 subcutaneous half-unit pen lancets 33 gauge #100 ea 11/15/19 lisinopril 40 mg tablet 40 mg PO DAILY 11/15/19 metoprolol succinate 50 mg 50 mg PO DAILY 11/15/19 tablet,extended release 24 hr naproxen 500 mg tablet 500 mg PO BID 11/15/19 ondansetron 4 mg disintegrating 4 mg PO Q8H 11/15/19 tablet pen needle, diabetic 32 gauge x #50 ea 11/15/19 pentoxifylline 400 mg 400 mg PO BID 11/15/19 tablet,extended release sildenafil 100 mg tablet 100 mg PO DAILY PRN 11/15/19 tamsulosin 0.4 mg capsule 0.4 mg PO DAILY 11/15/19 Previous Rx's Medication Instructions Recorded acetaminophen [Tylenol Extra 500 mg PO Q6H PRN #20 tab 12/24/19 Strength] cyclobenzaprine 5 mg PO Q8H PRN 5 Days #14 tab 12/24/19 lidocaine [Lidoderm] 1 patch TOPICAL DAILY PRN #30 ea 12/24/19 MDD remove after 12 hours naproxen 500 mg PO BID PRN 10 Days #20 tab 12/24/19 azithromycin [Zithromax Z-Keith] 250 mg PO DAILY 5 Days #6 tab 01/08/20 ibuprofen 800 mg PO Q8H PRN #30 tab 01/08/20 oxycodone 5 mg PO BID PRN #7 tab 01/08/20 prednisone 40 mg PO DAILY 5 Days #10 tab 01/08/20 cyclobenzaprine 10 mg PO TID PRN #15 tab 01/16/20 hydrocodone-acetaminophen 1 tab PO TID PRN #10 tab 01/16/20 levofloxacin 750 mg PO DAILY 5 Days #5 tab 01/16/20 lidocaine [Lidoderm] 1 patch TOPICAL DAILY #15 ea 01/16/20 Allergies Allergy/AdvReac Type Severity Reaction Status Date / Time ranitidine [From ZANTAC] Allergy Severe DIFFICULTY Verified 12/24/19 11:44 BREATHING, ITCHING Review of Systems Review of Systems: Yes all other systems are reviewed and are negative Constitutional: Constitutional: Reports no additional constitutional complaints, Denies body ache(s), Denies chills, Denies fever(s), Denies headache(s) and Denies weakness Eyes: Eyes: Reports no additional eye complaints and Denies change in vision ENT: Reports system reviewed and no additional complaints, except as documented, Denies dizziness, Denies headache(s), Denies nasal congestion, Denies nasal discharge and Denies neck pain Cardiovascular: Cardiovascular: Reports no additional cardiovascular complaints, Denies chest pain, Denies leg edema and Denies dyspnea Respiratory: Respiratory: Reports no additional respiratory complaints, Denies cough and Denies dyspnea Gastrointestinal: Gastrointestinal: Reports no additional gastrointestinal complaints, Denies abdominal pain, Denies diarrhea, Denies nausea and Denies vomiting Genitourinary: Genitourinary: Reports hematuria, Denies penile discharge, Denies testicular pain, Reports urinary frequency, Denies urinary incontinence and Reports urinary urgency Musculoskeletal: Musculoskeletal: Reports no additional musculoskeletal complaints, Reports back pain, Denies arthralgias, Denies joint swelling, Denies neck pain, Denies numbness and Denies tingling Integumentary/Breasts: Skin/Breast: Reports system reviewed and no additional complaints, except as docu and Denies rash Neurologic: Reports system reviewed and no additional complaints, except as documented, Denies Abnormal speech present, Denies dizziness, Denies headache(s), Denies numbness, Denies tingling and Denies weakness PMFSH Past Medical History Attestation statement: The following information was validated with the patient. Source: old records reviewed and nursing notes reviewed Medical History Chronic back pain Surgical History History of esophagogastroduodenoscopy (EGD) History of left knee surgery S/P cubital tunnel release Family History Family History Father No problems noted. Mother HTN (hypertension) Sister Type II diabetes mellitus Social History Social History Alcohol intake: current Alcohol intake frequency: a few times a week Alcohol type: beer Smoking Status: Current some day smoker Tobacco Type: Cigarette Use of substances other than those prescribed or required for medical reasons: No Advance Directives: No Advance Directives Information Provided: Yes Physical Exam Vital Signs: Vital Signs: Last Vital Signs Temp 98.8 F 01/16/20 13:22 Pulse 101 H 01/16/20 13:22 Resp 18 01/16/20 13:22 BP 112/59 L 01/16/20 13:22 Pulse Ox 98 01/16/20 13:22 Body Mass Index 42.5 Const: General: cooperative, healthy appearing, comfortable and no acute distress Orientation/consciousness: patient oriented x3 Limitations: no limitations HENMT: Head: Yes normal to inspection Ears: hearing grossly normal bilaterally General nose exam: Normal external nose present Face and sinus: Yes normal facial exam Mouth: Normal oral and palatal mucosa present Throat: Yes posterior oropharynx normal Eyes: General: appearance normal, both eyes and all related structures Pupils: Equal, round and reactive pupils present Neck: Neck: Yes normal visual inspection Chest: Chest palpation & inspection: normal inspection of the chest Resp: Effort & Inspection: normal respiratory effort Auscultation: clear to auscultation bilaterally Cardio: Rate: regular rate Rhythm: regular rhythm Peripheral pulses: Peripheral pulses 2+ throughout GI: Inspection: Yes normal to inspection Palpation (GI): Soft to palpation and nontender Auscultation: normal bowel sounds : Other: Deferred by patient General: Yes no CVA tenderness Back/Spine/Pelvis: Other: left lumbar paraspinal tenderness and soft tissue tenderness. No midline tenderness, step-offs or deformities. Back: no CVA tenderness Thoracic/Lumbar Spine: thoracic and lumbar spine normal to inspection Skin: General skin exam: no rashes or lesions noted Neuro: General: patient oriented x3, no focal motor deficits and normal sensation to monofilament Cranial nerves: Yes Equal, round and reactive pupils present Cognition (Neuro): normal cognition Speech: No Abnormal speech present Gait exam (Neuro): Normal gait present Motor exam (neuro): 5/5 motor strength present throughout Extrem: General: Yes normal to inspection Course Course Course Narrative: 44-year-old male here with acute on chronic low back pain and urinary frequency with hematuria since yesterday. Of note the patient had a CT scan 01/07 was negative for renal colic. He has no CVA tenderness or abdominal pain. He tells me his back pain is exactly like his chronic back pain and is no different from that. Will check UA, CT NG. Will give IM Toradol and reassess. 1400- UA shows 3+ blood. Urine culture sent and pending. CT NG pending. Patient treated prophylactically with ceftriaxone IM and azithromycin p.o For presumed STD. Instructed patient that we will follow-up with him with his results. Reviewed worrisome signs and symptoms and when to return to the emergency department. Comfortable discharge home. MDM - Male Genitourinary MDM Narrative Medical decision making narrative: Less likely renal colic with negative CT 8 days ago and no CVA tenderness. considered UTI. Considered gonorrhea/chlamydia infection. Medical Records Attestation: I reviewed the patient's medical records. Lab Data Attestation: I reviewed the patient's lab results. Labs: Lab Results 01/16/20 Range/Units 12:35 Urine Color YELLOW Urine Appearance CLOUDY Urine pH 6.0 (5.0-8.0) Ur Specific [place] 1.025 (1.005-1.025) Urine Protein 1+ H (NEG-TRACE) MG/DL Urine Glucose (UA) NEG (NEG) MG/DL Urine Ketones NEG (NEG) MG/DL Urine Blood 3+ H (NEG) Urine Nitrite NEG (NEG) Ur Leukocyte Esterase NEG (NEG) Urine RBC TNTC H (0) /HPF Urine WBC 0 (0-4) /HPF Ur Squamous Epith Cells TRACE /LPF Urine Bacteria NONE /LPF Urine Mucus TRACE /LPF Discharge Plan Discharge Clinical Impression: Urinary tract infection, Sciatica Patient Disposition: Home, Self-Care Instructions: Urinary Tract Infection in Men (ED), Sciatica (ED) Additional Instructions: Start the antibiotics tomorrow We will call you in 1-2 days with the results of the gonorrhea and chlamydia testing. Prescriptions: New levofloxacin 750 mg tablet 750 mg PO DAILY 5 Days Qty: 5 RF: 0 cyclobenzaprine 10 mg tablet 10 mg PO TID PRN (Reason: muscle spasm) Qty: 15 RF: 0 lidocaine [Lidoderm] 5 % adhesive patch,medicated 1 patch topical DAILY Qty: 15 RF: 0 hydrocodone-acetaminophen 5-300 mg tablet 1 tab PO TID PRN (Reason: pain) Qty: 10 RF: 0 No Action acetaminophen [Tylenol Extra Strength] 500 mg tablet 500 mg PO Q6H PRN (Reason: pain or fever) Qty: 20 RF: 0 lidocaine [Lidoderm] 5 % adhesive patch,medicated 1 patch topical DAILY MDD remove after 12 hours PRN (Reason: pain) Qty: 30 RF: 0 naproxen 500 mg tablet 500 mg PO BID PRN (Reason: pain) 10 Days Qty: 20 RF: 0 cyclobenzaprine 5 mg tablet 5 mg PO Q8H PRN (Reason: pain (scale score 7-10)) 5 Days Qty: 14 RF: 0 azithromycin [Zithromax Z-Keith] 250 mg tablet 250 mg PO DAILY 5 Days Qty: 6 RF: 0 ibuprofen 800 mg tablet 800 mg PO Q8H PRN (Reason: pain) Qty: 30 RF: 0 prednisone 20 mg tablet 40 mg PO DAILY 5 Days Qty: 10 RF: 0 oxycodone 5 mg tablet 5 mg PO BID PRN (Reason: pain) Qty: 7 RF: 0 Referrals: Hanna Ocasio MD [Primary Care Provider] - 2 days Interventions: ED Discharge Assessment Last Done: 01/16/20 14:13 Discharge Date/Time: 01/16/20 14:14
[2020-01-16 12:45] LABS: Glucose Urine UA NEG (NEG); Leukocyte Esterase Urine NEG (NEG); Nitrite Urine NEG (NEG); Specific Gravity - Urine 1.025 (1.005-1.025); Urine Blood 3+ (NEG); Urine Ketones NEG (NEG); Urine Protein 1+ MG/DL (NEG-TRACE)
[2020-01-16 12:47] LABS: Color Urine YELLOW
[2020-01-16 12:48] LABS: Appearance Urine CLOUDY
[2020-01-16 12:54] LABS: Mucus Urine TRACE /LPF; RBC Urine TNTC /HPF (0); Squamous Epithelial Cell Urine TRACE /LPF; WBC Urine 0 /HPF (0-4)
[2020-01-16 13:22] VITALS: BP 112/59; PULSE 101; RESP 18; TEMP 37.1; O2SAT 98
[2020-01-16] MEDS: Ketorolac Tromethamine 60 MG/2 ML VIAL IM (13:30)
--- NOTE | 2020-01-16 13:32 | PC.NURSE ---
patient medicated per order, urine obtained and sent to lab, vss will continue to monitor.
[2020-01-16] MEDS: cefTRIAXone sodium 250 MG, Lidocaine HCl 1 % MPF 0.9 ML IM (14:09)
[2020-01-16] MEDS: Azithromycin 500 MG TABLET 1000 MG PO (14:10)
--- NOTE | 2020-01-16 14:11 | PC.NURSE ---
paient medicated per order and to discahrge
[2020-01-16 15:56] LABS: CT PCR NOT DETECTED (Not Detect.); NG PCR NOT DETECTED (Not Detect.)
== END 2020-01-16 14:14 | disposition home or self-care (01) ==
PROVIDERS: Nurse Practitioner Family; Emergency Provider Internal Medicine; PCP Family Medicine
DX: N39.0 Urinary tract infection, site not specified (principal); M54.42 Lumbago with sciatica, left side; M54.41 Lumbago with sciatica, right side; F17.210 Nicotine dependence, cigarettes, uncomplicated; Z86.19 Personal history of other infectious and parasitic diseases; Z71.6 Tobacco abuse counseling; Z79.899 Other long term (current) drug therapy; Z20.2 Contact with and (suspected) exposure to infections with a predominantly sexual mode of transmission
CPT/HCPCS: 81001; 87491; 87591; 96372; 96374; 99284; J0696; J1885

== ENCOUNTER 2020-03-06 17:51 | Outpatient (REF) | payer MEDICAID, SELFPAY ==
--- NOTE | 2020-03-06 | MR_ITS ---
EXAMINATION: MR LUMBAR SPINE WITHOUT CONTRAST CLINICAL INFORMATION: Left-sided sciatic pain. Left leg weakness, numbness, and pain. Back pain. COMPARISON: Lumbar spine radiographs dated 09/09/2018 TECHNIQUE: MRI of the lumbar spine was obtained using routine sequences without contrast. FINDINGS: VERTEBRAL BODIES AND PARASPINAL STRUCTURES: The lumbar lordosis is maintained. Minimal grade 1 retrolisthesis of L1 on L2, L2 on L3, and L3 on L4. No acute fracture or subluxation. No loss of vertebral body height. Multilevel loss of intervertebral disc height and disc desiccation throughout the lumbar spine. Associated Modic type II degenerative endplate changes throughout the lumbar spine, most prominent at L2-L3. Epidural lipomatosis throughout the lumbar spine. The visualized paraspinal soft tissues are unremarkable. CONUS MEDULLARIS AND CAUDA EQUINA: Normal, terminating at the level of T12. SPINAL LEVELS: T12-L1: Mild broad-based disc bulge and bilateral facet arthropathy without significant central canal or neural foraminal stenosis. L1-L2: Broad-based disc bulge with a left subarticular disc protrusion with bilateral facet arthropathy and thickening of the ligamentum flavum causing [id number] left and mild right neural foraminal stenosis. Epidural lipomatosis causes moderate central canal stenosis. L2-L3: Broad-based disc bulge with a posterior annular fissure, prominent bilateral facet arthropathy, and thickening of the ligamentum flavum. Epidural lipomatosis with moderate central canal stenosis. Moderate bilateral neural foraminal stenosis. L3-L4: Large broad-based disc bulge, asymmetric to the right with a superimposed right extraforaminal disc protrusion which abuts the exiting right L3 nerve root. Prominent bilateral facet arthropathy and epidural lipomatosis causes severe central canal stenosis. There is moderate bilateral neural foraminal stenosis. L4-L5: Broad-based disc bulge with a left paracentral disc protrusion which abuts the traversing left L5 nerve root in the lateral recess. Bilateral facet arthropathy and thickening of the ligamentum flavum with moderate bilateral neural foraminal stenosis. L5-S1: Broad-based disc bulge with a right paracentral disc protrusion which abuts the traversing right S1 nerve root. Bilateral facet arthropathy as well as mild bilateral neural foraminal stenosis. MR/MR lumbar spine wo con IMPRESSION: 1. Minimal grade 1 retrolisthesis of L1 on L2, L2 on L3, and L3 on L4. No acute fracture or subluxation. 2. L3-L4 large broad-based disc bulge, asymmetric to the right with a superimposed right extraforaminal disc protrusion which abuts the exiting right L3 nerve root. Prominent bilateral facet arthropathy and epidural lipomatosis causes severe central canal stenosis as well as moderate bilateral neural foraminal stenosis. 3. L4-L5 broad-based disc bulge and left paracentral disc protrusion which abuts the traversing left L5 nerve root. Bilateral facet arthropathy and thickening of the ligamentum flavum with moderate bilateral neural foraminal stenosis. 4. L5-S1 broad-based disc bulge and right paracentral disc protrusion which abuts the traversing right S1 nerve root. Bilateral facet arthropathy with mild bilateral neural foraminal stenosis. 5. L1-L2 broad-based disc bulge and left subarticular disc protrusion with bilateral facet arthropathy, thickening of the ligamentum flavum, and epidural lipomatosis causing moderate central canal as well as moderate bilateral neural foraminal stenosis. 6. L2-L3 broad-based disc bulge with a posterior annular fissure, and prominent bilateral facet arthropathy, thickening of the ligamentum flavum, and epidural lipomatosis causing moderate central canal as well as moderate bilateral neural foraminal stenosis.
== END 2020-03-06 17:52 | disposition home or self-care (01) ==
LOC: HO.MRI 17:51
PROVIDERS: Visit Provider Emergency Medicine
DX: M54.42 Lumbago with sciatica, left side (principal)
CPT/HCPCS: 72148

== ENCOUNTER → 2020-06-01 10:09 | Outpatient (BNVA) | payer MEDICAID, SELFPAY | PROVIDERS: PCP Internal Medicine; Visit Provider Internal Medicine Gastroenterology ==

== ENCOUNTER 2020-06-06 09:45 | Outpatient (REF) | payer MEDICAID, SELFPAY ==
--- NOTE | ~2020-06-06 | CT_ITS ---
EXAMINATION: CT CHEST WITHOUT CONTRAST CLINICAL INFORMATION: Groundglass opacity COMPARISON: Chest radiograph 01/08/2020, CT abdomen and pelvis noncontrast 01/08/2020 TECHNIQUE: Multidetector volumetric CT imaging of the chest is performed without intravenous contrast. Axial MIP volume rendering provided. Sagittal and coronal reformatted images were obtained. Three additional high-resolution images are obtained through the upper, mid, and lower zones, respectively. This CT examination was performed using dose optimization techniques as appropriate, variously including the following: *Automated exposure control *Adjustment of mA and/or kV according to patient size (this includes techniques or standardized protocols for targeted exams where dose is matched to indication/reason for exam; i.e. extremities or head) *Use of iterative reconstruction technique DLP: 379 mGy-cm FINDINGS: LUNGS: The lungs are clear. There is no mass, nodule, groundglass opacity, or fibrotic changes. The central airways are clear and there is no endobronchial lesion or bronchiectasis. No hyperinflation. MEDIASTINUM: No hilar or mediastinal adenopathy. Heart size normal. No pericardial effusion. Thoracic aorta normal in caliber. PLEURA: There is no pleural effusion. No pleural mass or thickening. AXILLA: No lymphadenopathy. UPPER ABDOMEN: Stable enlarged spleen, 16.6 cm sagittal dimension, prior measurement 17.[address] 01/08/2020. Adrenal glands unremarkable. OSSEOUS STRUCTURES: No acute bony abnormality. CT/CT chest wo con IMPRESSION: 1. Lungs clear. No adenopathy or effusion. 2. Enlarged spleen, similar to CT abdomen 01/08/2020.
== END 2020-06-06 09:46 | disposition home or self-care (01) ==
LOC: HO.CT 09:45
PROVIDERS: Visit Provider Family Medicine
DX: R91.8 Other nonspecific abnormal finding of lung field (principal)
CPT/HCPCS: 71250

== ENCOUNTER → 2020-06-27 09:02 | Outpatient (BNVA) | payer MEDICAID, SELFPAY | PROVIDERS: PCP Family Medicine; Visit Provider Urology | DX: N52.01 Erectile dysfunction due to arterial insufficiency (principal); N40.1 Benign prostatic hyperplasia with lower urinary tract symptoms; N13.8 Other obstructive and reflux uropathy | CPT/HCPCS: 99212 ==

== ENCOUNTER 2020-07-04 12:16 | Outpatient (REF) | payer MEDICAID, SELFPAY ==
[2020-07-04 13:17] LABS: MANUAL DIFF FLAG NO
[2020-07-04 13:23] LABS: Basophils Percent Auto 0.3 % (0-2); Eosinophils Absolute Auto 0.1 X10*3/uL (0.0-0.4); Eosinophils Percent Auto 1.1 % (0-4); Hematocrit 46.8 % (42-52); Hemoglobin 15.8 g/dl (14.0-18.0); Imm Gran Abs Auto 0.02 X10*3/uL (0.00-0.03); Imm Gran Pct Auto 0.3 % (0.0-0.4); Lymphocytes Absolute Auto 2.1 X10*3/uL (1.2-4.9); Lymphocytes Percent Auto 29.2 % (20-40); Mean Corpuscular HGB Conc 33.8 g/dl (31.0-36.0); Mean Corpuscular Hemoglobin 34.1 pg (27.0-33.0); Mean Corpuscular Volume 100.9 fL (80-98); Mean Platelet Volume 10.1 fL (9.4-12.4); Monocytes Absolute Auto 0.6 X10*3/uL (0.1-1.2); Monocytes Percent Auto 8.7 % (2-11); Neutrophils Absolute Auto 4.4 X10*3/uL (2.0-8.3); Neutrophils Percent Auto 60.4 % (45-73); Platelet Count 180 X10*3/uL (160-400); Red Blood Count 4.64 X10*6/uL (4.60-5.80); Red Cell Distribution Width 14.1 % (11.0-16.0); White Blood Count 7.2 X10*3/uL (4.8-10.8)
[2020-07-04 13:30] LABS: Prothrombin Time 12.3 SEC (10.8-13.0)
[2020-07-04 13:46] LABS: Alanine Aminotransferase 48 U/L (0-40); Albumin Level 3.9 g/dL (3.5-5.0); Alkaline Phosphatase 89 U/L (39-117); Anion Gap 12 (12-20); Aspartate Amino Transferase 44 U/L (5-37); Bilirubin Total 0.4 mg/dL (0.0-1.0); Blood Urea Nitrogen 12 mg/dL (9-16); Calcium 9.2 mg/dL (8.4-10.2); Carbon Dioxide 28 mmol/L (22-29); Chloride 104 mmol/L (96-108); Estimated Glomerular Filt Rate > 60; Glucose Random 175 mg/dL (60-115); Potassium 3.7 mmol/L (3.3-5.1); Sodium 140 mmol/L (135-145); Total Protein 7.6 g/dL (6.5-8.0)
[2020-07-04 14:07] LABS: PSA,Total (Free>4and<10) 0.34 ng/mL (0.00-4.00)
== END 2020-07-04 12:17 | disposition home or self-care (01) ==
LOC: HO.LAB 12:16
PROVIDERS: Urology; PCP Family Medicine; Visit Provider Internal Medicine Gastroenterology
DX: K74.69 Other cirrhosis of liver (principal); K75.81 Nonalcoholic steatohepatitis (NASH); N40.1 Benign prostatic hyperplasia with lower urinary tract symptoms; N13.8 Other obstructive and reflux uropathy; Z12.5 Encounter for screening for malignant neoplasm of prostate
CPT/HCPCS: 36415; 80053; 84153; 85025; 85610

== ENCOUNTER 2020-07-23 08:08 | Outpatient (REF) | payer MEDICAID, SELFPAY | END 2020-07-23 08:09 | disposition home or self-care (01) | LOC: HO.HOSX 08:08 | PROVIDERS: Visit Provider Orthopaedic Surgery | DX: Z13.89 Encounter for screening for other disorder (principal) ==

== ENCOUNTER → 2020-08-01 15:20 | Outpatient (BNVA) | payer MEDICAID, SELFPAY | PROVIDERS: PCP Family Medicine; Referring Provider Family Medicine; Visit Provider Surgery | DX: R22.1 Localized swelling, mass and lump, neck (principal) | CPT/HCPCS: 99202 ==

== ENCOUNTER 2020-09-14 12:24 | Emergency (ER) | payer MEDICAID, SELFPAY ==
--- NOTE | ~2020-09-14 | CT_ITS ---
EXAMINATION: CT ABDOMEN AND PELVIS WITHOUT CONTRAST CLINICAL INFORMATION: hematuria after Toradol IM injection COMPARISON: CT scan abdomen pelvis January 08, 2020 TECHNIQUE: Multidetector volumetric imaging was performed from the superior aspect of the liver through the pubic symphysis. Sagittal and coronal reformatted images were obtained on the technologist's workstation. This CT examination was performed using dose optimization techniques as appropriate, variously including the following: *Automated exposure control *Adjustment of mA and/or kV according to patient size (this includes techniques or standardized protocols for targeted exams where dose is matched to indication/reason for exam; i.e. extremities or head) *Use of iterative reconstruction technique DLP: 1297 mGy-cm FINDINGS: LUNG BASES: The visualized lung bases are unremarkable. LIVER, GALLBLADDER, AND BILIARY TREE: Micronodular contour of liver consistent with cirrhosis. No focal liver lesion or intrahepatic bile duct dilatation. The gallbladder is unremarkable with no evidence of radiopaque gallstones, gallbladder wall thickening, or obvious pericholecystic inflammatory changes. PANCREAS: Unremarkable. SPLEEN: Mild splenomegaly. Spleen measures 16 cm of length. ADRENAL GLANDS: Unremarkable. KIDNEYS AND URETERS: The kidneys are normal in size, shape, and attenuation. No hydronephrosis, hydroureter, or calculi seen. No perinephric stranding. BLADDER: Unremarkable. GASTROINTESTINAL TRACT: The small and large bowel are unremarkable. The appendix is unremarkable. Mesentery: No free air or free fluid. No inflammation. ABDOMINAL WALL: No significant hernia is appreciated. LYMPH NODES: Normal. VASCULAR: Unremarkable. PELVIC VISCERA: Unremarkable. OSSEOUS STRUCTURES: There is advanced multilevel degenerative spondylosis spine. No acute osseous abnormality. CT/CT abdomen pelvis wo con IMPRESSION: 1. No acute abnormality the abdomen or pelvis. Normal kidneys, ureter and bladder. 2. Cirrhotic liver. 3. Mild splenomegaly.
[2020-09-14 12:54] VITALS: BP 126/76; PULSE 97; RESP 18; TEMP 36.2; O2SAT 98; BMI 41.0
[2020-09-14 14:15] LABS: Glucose Urine UA 100 MG/DL (NEG); Leukocyte Esterase Urine NEG (NEG); Nitrite Urine NEG (NEG); UACC Culture Trigger NO; Urine Blood 3+ (NEG); Urine Ketones NEG (NEG); Urine Protein NEG (NEG-TRACE)
[2020-09-14 14:19] LABS: Appearance Urine CLOUDY; Color Urine YELLOW
[2020-09-14 14:25] LABS: WBC Urine 0 /HPF (0-4)
[2020-09-14 16:37] LABS: MANUAL DIFF FLAG NO
[2020-09-14 16:39] LABS: Basophils Percent Auto 0.3 % (0-2); Eosinophils Absolute Auto 0.1 X10*3/uL (0.0-0.4); Eosinophils Percent Auto 0.9 % (0-4); Hematocrit 43.1 % (42-52); Hemoglobin 14.7 g/dl (14.0-18.0); Imm Gran Abs Auto 0.02 X10*3/uL (0.00-0.03); Imm Gran Pct Auto 0.3 % (0.0-0.4); Lymphocytes Absolute Auto 1.9 X10*3/uL (1.2-4.9); Lymphocytes Percent Auto 27.5 % (20-40); Mean Corpuscular HGB Conc 34.1 g/dl (31.0-36.0); Mean Corpuscular Hemoglobin 34.2 pg (27.0-33.0); Mean Corpuscular Volume 100.2 fL (80-98); Mean Platelet Volume 9.9 fL (9.4-12.4); Monocytes Absolute Auto 0.6 X10*3/uL (0.1-1.2); Monocytes Percent Auto 8.5 % (2-11); Neutrophils Absolute Auto 4.2 X10*3/uL (2.0-8.3); Neutrophils Percent Auto 62.5 % (45-73); Platelet Count 129 X10*3/uL (160-400); Red Cell Distribution Width 13.8 % (11.0-16.0); White Blood Count 6.7 X10*3/uL (4.8-10.8)
[2020-09-14 17:06] LABS: Alanine Aminotransferase 52 U/L (0-40); Albumin Level 3.8 g/dL (3.5-5.0); Alkaline Phosphatase 94 U/L (39-117); Anion Gap 11 (12-20); Aspartate Amino Transferase 49 U/L (5-37); Bilirubin Total 0.6 mg/dL (0.0-1.0); Blood Urea Nitrogen 10 mg/dL (9-16); Calcium 9.4 mg/dL (8.4-10.2); Carbon Dioxide 28 mmol/L (22-29); Chloride 106 mmol/L (96-108); Creatinine Clr Calc Pharmacy 160.7; Estimated Glomerular Filt Rate > 60; Glucose Random 76 mg/dL (60-115); Potassium 3.8 mmol/L (3.3-5.1); Sodium 141 mmol/L (135-145); Total Protein 7.3 g/dL (6.5-8.0)
--- NOTE | 2020-09-14 17:11 | ED_ITS ---
HPI - Male Genitourinary General Chief complaint: Urogenital-Male Stated complaint: black stool Time Seen by Provider: 09/14/20 16:09 Source: patient Mode of arrival: ambulatory Limitations: language barrier (Singaporean-speaking) History of Present Illness HPI Narrative: 45-year-old male with a past medical history of COVID-19, diabetes, hypertension, tachycardia, fatty liver, cirrhosis, colitis, BPH with urinary obstruction/LUTS, erectile dysfunction due to arterial insufficiency, GERD, gastritis, obesity, hyperplastic polyp of stomach, obstructive sleep apnea on CPAP at home, anxiety, depression, chronic back pain, arthritis who usually gets steroid injections for his chronic back pain/arthritis is presenting to the ED with complaints of hematuria after he obtained an IM injection of Toradol for his chronic back pain/arthritis instead of the steroid injection. He reports that he did not receive a steroid injection so would not increase his blood sugars due to he is going to [place] in the coming days. Although he reports since he received a Toradol injection he has noticed as he has had dark urine that has now turned pink in color and has been constant for the past 2 days. Denies any fevers, dizziness, headache, chest pain, shortness of breath, palpitations, abdominal pain, worsening back pain, diarrhea, constipation, black or bloody stools, dysuria or any other symptoms complaints or concerns at this time. MD Complaint: other (Hematuria) Onset (ago): day(s) (Two days) Duration: constant and improved Location: penis Severity: mild Relieving factors: none Exacerbating factors: urination Context: new medication (Toradol 2 days ago IM injection) Associated symptoms: Reports denies other symptoms Related Data Sexually active: Yes (With his no thoughts of STDs) Home Medications Medication Instructions Recorded Confirmed amlodipine 5 mg tablet 5 mg PO DAILY 11/15/19 08/13/20 baclofen 20 mg tablet 20 mg PO QID 11/15/19 08/13/20 chlorthalidone 25 mg tablet 25 mg PO DAILY 11/15/19 08/13/20 cholecalciferol (vitamin D3) 25 25 mcg PO DAILY 11/15/19 08/13/20 mcg (1,000 unit) tablet (Vitamin D3) dexlansoprazole 60 mg 60 mg PO DAILY 11/15/19 08/13/20 capsule,biphase delayed release (Dexilant) exenatide microspheres 2 mg/0.65 2 mg SUBCUT Q7D 11/15/19 08/01/20 mL subcutaneous pen injector (Daksha) lancets 33 gauge (TRUEplus Lancets) #100 ea 11/15/19 08/01/20 lisinopril 40 mg tablet 40 mg PO DAILY 11/15/19 08/13/20 metoprolol succinate 50 mg 50 mg PO DAILY 11/15/19 08/13/20 tablet,extended release 24 hr naproxen 500 mg tablet 500 mg PO BID 11/15/19 08/13/20 ondansetron 4 mg disintegrating 4 mg PO Q8H 11/15/19 08/13/20 tablet pen needle, diabetic 32 gauge x #50 ea 11/15/19 08/01/20 (Unifine Pentips) pentoxifylline 400 mg 400 mg PO BID 11/15/19 08/13/20 tablet,extended release fluticasone propionate 110 1 puff PO BID 08/13/20 08/13/20 mcg/actuation HFA aerosol inhaler (Flovent HFA) glipizide 5 mg tablet 1 tab PO BID 08/13/20 08/13/20 metoclopramide HCl 5 mg tablet 1 tab PO BEDTIME 08/13/20 08/13/20 montelukast 10 mg tablet 1 tab PO QPM 08/13/20 08/13/20 Previous Rx's Medication Instructions Recorded acetaminophen 500 mg tablet 500 mg PO Q6H PRN #20 tab 12/24/19 (Tylenol Extra Strength) cyclobenzaprine 5 mg tablet 5 mg PO Q8H PRN 5 Days #14 tab 12/24/19 lidocaine 5 % topical patch 1 patch TOPICAL DAILY PRN #30 ea 12/24/19 (Lidoderm) MDD remove after 12 hours ibuprofen 800 mg tablet 800 mg PO Q8H PRN #30 tab 01/08/20 oxycodone 5 mg tablet 5 mg PO BID PRN #7 tab 01/08/20 cyclobenzaprine 10 mg tablet 10 mg PO TID PRN #15 tab 01/16/20 hydrocodone 5 mg-acetaminophen 300 1 tab PO TID PRN #10 tab 01/16/20 mg tablet sildenafil 100 mg tablet 100 mg PO DAILY PRN 30 Days #6 tab 04/25/20 tadalafil 5 mg tablet 5 mg PO DAILY PRN 90 Days #90 tab 06/27/20 tamsulosin 0.4 mg capsule 0.4 mg PO DAILY 30 Days #30 cap 07/30/20 Allergies Allergy/AdvReac Type Severity Reaction Status Date / Time ranitidine [From ZANTAC] Allergy Severe DIFFICULTY Verified 08/13/20 15:26 BREATHING, ITCHING Review of Systems Review of Systems: Constitutional : No Weight loss, No Fever, No Chills, No Night Sweats, No Fatigue, NoMalaise ENT/Mouth: No ear pain, No sore throat, No Difficulty swallowing Cardiovascular : No Chest Pain, No SOB, No Dyspnea on Exertion, No Orthopnea, NoEdema, No Palpitations Respiratory : No Cough, No Sputum, No Wheezing, No Dyspnea Gastrointestinal : No Nausea, No Vomiting, No Diarrhea, No abdominal Pain, No Hematochezia, No Melena Genitourinary : Positive hematuria, No testicular pain right-sided, No Dysuria, No Urinary Frequency, No Hematuria,No Urinary Incontinence, No Urgency, No Flank Pain Musculoskeletal : No joint pain, No Myalgias, No Joint Swelling Skin : No Skin Lesions, No rash Neuro : No Weakness, No Numbness, No Paresthesias, No Loss of Consciousness, NoDizziness, No Headache Psych : No Social Issues, Heme/Lymph: No Bruising, No Bleeding,No Lymphadenopathy Endocrine : No Polyuria, No Polydipsia, No Temperature Intolerance PATIENT DENIES ANY THOUGHTS OF STDS Yes all other systems are reviewed and are negative [facility] Past Medical History Attestation statement: The following information was validated with the patient. Medical History Arthritis Chronic back pain Cirrhosis Colitis COVID-19 Diabetes Dysuria Fatty liver GERD (gastroesophageal reflux disease) History of anxiety History of depression History of tachycardia HTN (hypertension) Hx of gastritis Obesity On beta alma at home OLIVER on CPAP Subcutaneous mass of neck Surgical History History of esophagogastroduodenoscopy (EGD) History of left knee surgery Hx of elbow surgery S/P cubital tunnel release Family History Family History Father No problems noted. Mother HTN (hypertension) Sister Type II diabetes mellitus Social History Social History Are you a primary cardiac care unit nurse to a significant other at home: No Do you presently have visiting nurse or other home services: No Alcohol intake: current Alcohol intake frequency: a few times a week Alcohol type: beer Patient Tobacco Use Status: Former Tobacco user Tobacco use type: Cigarette Advance Directives: No Advance Directives Information Provided: No Physical Exam Vital Signs: Vital Signs: Last Vital Signs Temp 98.7 F 09/14/20 19:03 Pulse 90 09/14/20 19:03 Resp 17 09/14/20 19:03 BP 134/91 H 09/14/20 19:03 Pulse Ox 97 09/14/20 19:03 Body Mass Index 41.0 vital signs have been reviewed as normal and appeared to be correct. Blood pressure normal. Heart rate normal. Respiration rate normal. Temperature normal. Oxygen saturation normal. Appearance: Alert. Oriented X3. No acute distress. Head: Normal external exam. Normocephalic. Atraumatic. Eyes: PERRLA. EOMI. Conjunctiva and sclera normal. Eyelids normal. ENT: Pharynx normal. Uvula midline. Moist mucous membranes. Neck: Normal inspection. Neck supple. FROM. No adenopathy. No meningeal signs. CVS: Normal heart rate and rhythm. Heart sound normal. No murmurs noted. Pulses normal throughout. Respiratory: No respiratory distress. Painless inspiration. Breath sounds normal. No wheezes/rales/rhonchi noted. Chest nontender. No accessory muscle usage noted or decreased air movement noted. Abdomen: Soft and nontender. Bowel sounds normal in all 4 quadrants. No distention noted. No organomegaly noted. No visible injury noted. Back: No CVA tenderness. Full range of motion noted. Skin: Skin warm and dry. Normal skin color. Normal skin turgor. No rashes/lesions/lacerations noted. Extremities: Extremities exhibit normal range of motion. Extremities nontender. Neuro: Oriented X 3. No motor deficit. No sensory deficit. Reflexes normal. Course Course Course Narrative: 16:10pm - 45-year-old male presenting to the ED with complaints of hematuria without abdominal pain that started 2 days ago after an IM Toradol injection that he received for his chronic back pain/arthritis. Plan: Labs, UA, CT scan abdomen pelvis without contrast and re-evaluate. Reevaluation(s) Reevaluation #1: - labs reviewed and patient with mild anemia with white blood cell count of 4.30. Low platelet count at 129. Anion gap 11. AST/ALT 49/52. CPK 221. Otherwise all other labs are within normal limits including BUN and creatinine. UA revealed blood otherwise no evidence of UTI. CT scan of abdomen and pelvis without contrast did not reveal any acute processes. - therefore at this time will DC home with referral to Urology for hematuria without abdominal pain of unknown cause. Patient understands agrees with this plan to return if any new or worsening symptoms to follow up with Urology. Time: 19:08 [facility] - Male Genitourinary Medical Records Attestation: I reviewed the patient's medical records. Lab Data Attestation: I reviewed the patient's lab results. Result diagrams: 09/14/20 16:26 09/14/20 16:26 Labs: Lab Results 09/14/20 09/14/20 09/14/20 Range/Units 13:19 16:26 16:26 WBC 6.7 (4.8-10.8) X10*3/uL RBC 4.30 L (4.60-5.80) X10*6/uL Hgb 14.7 (14.0-18.0) g/dl Hct 43.1 (42-52) % MCV 100.2 H (80-98) fL MCH 34.2 H (27.0-33.0) pg MCHC 34.1 (31.0-36.0) g/dl RDW 13.8 (11.0-16.0) % Plt Count 129 L D (160-400) X10*3/uL MPV 9.9 (9.4-12.4) fL Immature Gran % (Auto) 0.3 (0.0-0.4) % Neut % (Auto) 62.5 (45-73) % Lymph % (Auto) 27.5 (20-40) % Placer % (Auto) 8.5 (2-11) % Eos % (Auto) 0.9 (0-4) % Baso % (Auto) 0.3 (0-2) % Lymph # (Auto) 1.9 (1.2-4.9) X10*3/uL Placer # (Auto) 0.6 (0.1-1.2) X10*3/uL Eos # (Auto) 0.1 (0.0-0.4) X10*3/uL Baso # (Auto) 0.0 (0.0-0.2) X10*3/uL Abs Immat Gran (auto) 0.02 (0.00-0.03) X10*3/uL Absolute Neuts (auto) 4.2 (2.0-8.3) X10*3/uL Absolute Nucleated RBC 0.000 (0.0-0.012) X10*3/uL Nucleated RBC % (auto) 0.0 (0.0-0.2) /100WBC Sodium 141 (135-145) mmol/L Potassium 3.8 (3.3-5.1) mmol/L Chloride 106 (96-108) mmol/L Carbon Dioxide 28 (22-29) mmol/L Anion Gap 11 L (12-20) BUN 10 (9-16) mg/dL Creatinine 0.77 (0.5-1.4) mg/dL Estim Creat Clear Calc 160.7 Estimated GFR > 60 Random Glucose 76 D (60-115) mg/dL Calcium 9.4 (8.4-10.2) mg/dL Magnesium 2.0 (1.6-2.6) mg/dL Total Bilirubin 0.6 (0.0-1.0) mg/dL AST 49 H (5-37) U/L ALT 52 H (0-40) U/L Alkaline Phosphatase 94 (39-117) U/L Total Creatine Kinase 221 H (38-174) U/L Total Protein 7.3 (6.5-8.0) g/dL Albumin 3.8 (3.5-5.0) g/dL Urine Color YELLOW Urine Appearance CLOUDY Urine pH 7.0 (5.0-8.0) Ur Specific [place] 1.020 (1.005-1.025) Urine Protein NEG (NEG-TRACE) MG/DL Urine Glucose (UA) 100 H (NEG) MG/DL Urine Ketones NEG (NEG) MG/DL Urine Blood 3+ H (NEG) Urine Nitrite NEG (NEG) Ur Leukocyte Esterase NEG (NEG) Urine RBC 76-150 H (0) /HPF Urine WBC 0 (0-4) /HPF Ur Squamous Epith Cells NONE /LPF Urine Bacteria NONE /LPF 09/14/20 Range/Units 17:43 WBC (4.8-10.8) X10*3/uL RBC (4.60-5.80) X10*6/uL Hgb (14.0-18.0) g/dl Hct (42-52) % MCV (80-98) fL MCH (27.0-33.0) pg MCHC (31.0-36.0) g/dl RDW (11.0-16.0) % Plt Count (160-400) X10*3/uL MPV (9.4-12.4) fL Immature Gran % (Auto) (0.0-0.4) % Neut % (Auto) (45-73) % Lymph % (Auto) (20-40) % Placer % (Auto) (2-11) % Eos % (Auto) (0-4) % Baso % (Auto) (0-2) % Lymph # (Auto) (1.2-4.9) X10*3/uL Placer # (Auto) (0.1-1.2) X10*3/uL Eos # (Auto) (0.0-0.4) X10*3/uL Baso # (Auto) (0.0-0.2) X10*3/uL Abs Immat Gran (auto) (0.00-0.03) X10*3/uL Absolute Neuts (auto) (2.0-8.3) X10*3/uL Absolute Nucleated RBC (0.0-0.012) X10*3/uL Nucleated RBC % (auto) (0.0-0.2) /100WBC Sodium (135-145) mmol/L Potassium (3.3-5.1) mmol/L Chloride (96-108) mmol/L Carbon Dioxide (22-29) mmol/L Anion Gap (12-20) BUN (9-16) mg/dL Creatinine (0.5-1.4) mg/dL Estim Creat Clear Calc Estimated GFR Random Glucose (60-115) mg/dL Calcium (8.4-10.2) mg/dL Magnesium (1.6-2.6) mg/dL Total Bilirubin (0.0-1.0) mg/dL AST (5-37) U/L ALT (0-40) U/L Alkaline Phosphatase (39-117) U/L Total Creatine Kinase (38-174) U/L Total Protein (6.5-8.0) g/dL Albumin (3.5-5.0) g/dL Urine Color YELLOW Urine Appearance HAZY Urine pH 7.0 (5.0-8.0) Ur Specific [place] 1.015 (1.005-1.025) Urine Protein TRACE (NEG-TRACE) MG/DL Urine Glucose (UA) NEG (NEG) MG/DL Urine Ketones NEG (NEG) MG/DL Urine Blood 3+ H (NEG) Urine Nitrite NEG (NEG) Ur Leukocyte Esterase NEG (NEG) Urine RBC 50-75 H (0) /HPF Urine WBC 0 (0-4) /HPF Ur Squamous Epith Cells NONE /LPF Urine Bacteria 1+ /LPF Imaging Data CT scan abdomen and pelvis without IV contrast: Attestation: I personally reviewed and interpreted this imaging study as follows: Radiologist's impression: FINDINGS: LUNG BASES: The visualized lung bases are unremarkable.? LIVER, GALLBLADDER, AND BILIARY TREE: Micronodular contour of liver consistent with cirrhosis. No focal liver lesion or intrahepatic bile duct dilatation. ?The gallbladder is unremarkable with no evidence of radiopaque gallstones, gallbladder wall thickening, or obvious pericholecystic inflammatory changes.? PANCREAS: Unremarkable.? SPLEEN: Mild splenomegaly. Spleen measures 16 cm of length.? ADRENAL GLANDS: Unremarkable.? KIDNEYS AND URETERS: The kidneys are normal in size, shape, and attenuation. No hydronephrosis, hydroureter, or calculi seen. No perinephric stranding. ? BLADDER: Unremarkable.? GASTROINTESTINAL TRACT: The small and large bowel are unremarkable. The appendix is unremarkable. Mesentery: No free air or free fluid. No inflammation. ABDOMINAL WALL: No significant hernia is appreciated.? LYMPH NODES: Normal. VASCULAR: Unremarkable. PELVIC VISCERA: Unremarkable.? OSSEOUS STRUCTURES: There is advanced multilevel degenerative spondylosis spine. No acute osseous abnormality.? CT/CT abdomen pelvis wo con IMPRESSION: ? 1. No acute abnormality the abdomen or pelvis. Normal kidneys, ureter and bladder. 2. Cirrhotic liver. 3. Mild splenomegaly. Discharge Plan Discharge Clinical Impression: Hematuria of undiagnosed cause Patient Disposition: Home, Self-Care Instructions: Hematuria (ED) Prescriptions: No Action sildenafil 100 mg tablet 100 mg PO DAILY PRN (Reason: sexual activity) 30 Days Qty: 6 RF: 2 tamsulosin 0.4 mg capsule 0.4 mg PO DAILY 30 Days Qty: 30 RF: 6 acetaminophen [Tylenol Extra Strength] 500 mg tablet 500 mg PO Q6H PRN (Reason: pain or fever) Qty: 20 RF: 0 lidocaine [Lidoderm] 5 % adhesive patch,medicated 1 patch topical DAILY MDD remove after 12 hours PRN (Reason: pain) Qty: 30 RF: 0 cyclobenzaprine 5 mg tablet 5 mg PO Q8H PRN (Reason: pain (scale score 7-10)) 5 Days Qty: 14 RF: 0 ibuprofen 800 mg tablet 800 mg PO Q8H PRN (Reason: pain) Qty: 30 RF: 0 oxycodone 5 mg tablet 5 mg PO BID PRN (Reason: pain) Qty: 7 RF: 0 cyclobenzaprine 10 mg tablet 10 mg PO TID PRN (Reason: muscle spasm) Qty: 15 RF: 0 hydrocodone-acetaminophen 5-300 mg tablet 1 tab PO TID PRN (Reason: pain) Qty: 10 RF: 0 montelukast 10 mg tablet 1 tab PO QPM RF: 0 glipizide 5 mg tablet 1 tab PO BID RF: 0 metoclopramide HCl 5 mg tablet 1 tab PO BEDTIME RF: 0 Flovent HFA 110 mcg/actuation HFA aerosol inhaler 1 puff PO BID RF: 0 tadalafil 5 mg tablet 5 mg PO DAILY PRN (Reason: sexual activity) 90 Days Qty: 90 RF: 1 Dexilant 60 mg capsule,biphase delayed releas 60 mg PO DAILY RF: 0 ondansetron 4 mg tablet,disintegrating 4 mg PO Q8H RF: 0 pentoxifylline 400 mg tablet extended release 400 mg PO BID RF: 0 baclofen 20 mg tablet 20 mg PO QID RF: 0 (DME) pen needle, diabetic [Unifine Pentips] 32 gauge x 5/32 needle See Rx Instructions .ROUTE .MEDSUPPLY Qty: 50 RF: 0 naproxen 500 mg tablet 500 mg PO BID RF: 0 (DME) lancets [TRUEplus Lancets] 33 gauge misc See Rx Instructions .ROUTE .MEDSUPPLY Qty: 100 RF: 0 chlorthalidone 25 mg tablet 25 mg PO DAILY RF: 0 amlodipine 5 mg tablet 5 mg PO DAILY RF: 0 lisinopril 40 mg tablet 40 mg PO DAILY RF: 0 cholecalciferol (vitamin D3) [Vitamin D3] 25 mcg (1,000 unit) tablet 25 mcg PO DAILY RF: 0 metoprolol succinate 50 mg tablet extended release 24 hr 50 mg PO DAILY RF: 0 Bydureon 2 mg/0.65 mL pen injector 2 mg subcut Q7D RF: 0 Referrals: Dao Keith MD [Physician] - 2 days Print Language: Singaporean
[2020-09-14 17:36] VITALS: BP 95/52; PULSE 87; TEMP 36.8; O2SAT 97
[2020-09-14 17:49] LABS: Glucose Urine UA NEG (NEG); Leukocyte Esterase Urine NEG (NEG); Nitrite Urine NEG (NEG); Specific Gravity - Urine 1.015 (1.005-1.025); UACC Culture Trigger NO; Urine Blood 3+ (NEG); Urine Ketones NEG (NEG); Urine Protein TRACE MG/DL (NEG-TRACE)
[2020-09-14 17:51] LABS: Appearance Urine HAZY; Color Urine YELLOW
[2020-09-14 17:57] LABS: Bacteria Urine 1+ /LPF; RBC Urine 50-75 /HPF (0); WBC Urine 0 /HPF (0-4)
[2020-09-14 18:26] VITALS: BP 137/84; PULSE 90; RESP 18
[2020-09-14 19:03] VITALS: BP 134/91; PULSE 90; RESP 17; TEMP 37.1; O2SAT 97
--- NOTE | 2020-09-14 19:05 | PC.NURSE ---
Pt aaox4, resting on stretcher in NAD breathing with ease on RA. Pt denies pain/discomfort, n/v/d. Pt reports after using the bathroom about 1 hour ago the urine looked better, it looks clearer. Pt aware that CT has resulted, is awaiting update by provider and dispo. Pt stretcher is in lowest locked position, rails raised, call carrero within reach
== END 2020-09-14 19:15 | disposition home or self-care (01) ==
PROVIDERS: Physician Assistant Medical; Emergency Provider Internal Medicine; PCP Family Medicine
DX: R31.9 Hematuria, unspecified (principal); I10 Essential (primary) hypertension; E11.9 Type 2 diabetes mellitus without complications; Z86.16 Personal history of COVID-19; K74.60 Unspecified cirrhosis of liver; Z79.4 Long term (current) use of insulin; Z79.899 Other long term (current) drug therapy
CPT/HCPCS: 36415; 74176; 80053; 81001; 82550; 83735; 85025; 99284

== ENCOUNTER → 2020-09-28 06:41 | Day surgery (SDC) | payer MEDICAID, SELFPAY ==
[2020-08-13 16:10] VITALS: BMI 100.5
--- NOTE | 2020-08-17 09:39 | HO.ANESPROP2 ---
HPI - Anesthesia Eval Consult details Narrative: 45yo M for Excision of Posterior Neck Mass PMFSH Active Problems Active Problems: All Active Problems (Updated 08/13/20 @ 15:26 by Keira Limon) Hyperplastic polyp of stomach (Acute) Chronic epigastric pain (Acute) BPH w urinary obs/LUTS (Acute) Erectile dysfunction due to arterial insufficiency (Acute) Subcutaneous mass of neck (Acute) COVID-19 (Acute) Colitis (Acute) Cirrhosis (Acute) Past Medical History Medical History (Updated 08/13/20 @ 15:26 by Keira Limon) Arthritis Chronic back pain Cirrhosis Colitis COVID-19 Diabetes Dysuria Fatty liver GERD (gastroesophageal reflux disease) History of anxiety History of depression History of tachycardia HTN (hypertension) Hx of gastritis Obesity On beta alma at home OLIVER on CPAP Subcutaneous mass of neck Family History Family History Father No problems noted. Mother HTN (hypertension) Sister Type II diabetes mellitus Surgical History Surgical History History of esophagogastroduodenoscopy (EGD) History of left knee surgery Hx of elbow surgery S/P cubital tunnel release Social History Social History Are you a primary college and career counselor to a significant other at home: No Do you presently have visiting nurse or other home services: No Alcohol intake: current Alcohol intake frequency: a few times a week Alcohol type: beer Patient Tobacco Use Status: Former Tobacco user Tobacco use type: Cigarette Have you been hit, kicked, punched, or otherwise hurt by someone within the past year? If so, by whom?: No Are you DNR?: No Advance Directives: No Advance Directives Information Provided: No Advance Directives on File: No Recently lost weight without trying: No Eating poorly because of decreased appetite: No Nutrition Risks: No Nutritional Risk Meds Allergies Allergy/AdvReac Type Severity Reaction Status Date / Time ranitidine [From ZANTAC] Allergy Severe DIFFICULTY Verified 08/13/20 15:26 BREATHING, ITCHING Home Medications Medication Instructions Recorded Confirmed Last Taken Type amlodipine 5 mg tablet 5 mg PO DAILY 11/15/19 08/13/20 Unknown History baclofen 20 mg tablet 20 mg PO QID 11/15/19 08/13/20 Unknown History chlorthalidone 25 mg tablet 25 mg PO DAILY 11/15/19 08/13/20 Unknown History cholecalciferol (vitamin D3) 25 25 mcg PO DAILY 11/15/19 08/13/20 Unknown History mcg (1,000 unit) tablet dexlansoprazole 60 mg 60 mg PO DAILY 11/15/19 08/13/20 Unknown History capsule,biphase delayed release exenatide microspheres 2 mg/0.65 2 mg SUBCUT Q7D 11/15/19 08/01/20 Unknown History mL subcutaneous pen injector lancets 33 gauge #100 ea 11/15/19 08/01/20 Unknown History lisinopril 40 mg tablet 40 mg PO DAILY 11/15/19 08/13/20 Unknown History metoprolol succinate 50 mg 50 mg PO DAILY 11/15/19 08/13/20 Unknown History tablet,extended release 24 hr naproxen 500 mg tablet 500 mg PO BID 11/15/19 08/13/20 Unknown History ondansetron 4 mg disintegrating 4 mg PO Q8H 11/15/19 08/13/20 Unknown History tablet pen needle, diabetic 32 gauge x #50 ea 11/15/19 08/01/20 Unknown History pentoxifylline 400 mg 400 mg PO BID 11/15/19 08/13/20 Unknown History tablet,extended release fluticasone propionate [Flovent 1 puff PO BID 08/13/20 08/13/20 Unknown History HFA] glipizide 1 tab PO BID 08/13/20 08/13/20 Unknown History metoclopramide HCl 1 tab PO BEDTIME 08/13/20 08/13/20 Unknown History montelukast 1 tab PO QPM 08/13/20 08/13/20 Unknown History Exam Exam Date and Time: August 17, 2020 0939 Height,Weight and Vital Signs: Height 5 ft 5 in Weight 274 kg Pertinent Lab Results Pertinent Lab Results: Laboratory Tests 07/04/20 07/04/20 07/04/20 12:37 12:37 12:37 WBC 7.2 Hgb 15.8 Hct 46.8 Plt Count 180 PT 12.3 INR 1.0 Sodium 140 Potassium 3.7 Chloride 104 Carbon Dioxide 28 BUN 12 Creatinine 0.78 Estimated GFR > 60 Calcium 9.2 D Total Bilirubin 0.4 AST 44 H ALT 48 H Alkaline Phosphatase 89 Total Protein 7.6 Albumin 3.9 Assessment and Plan Assessment Anesthesia Assessment: Chart Reviewed
--- NOTE | 2020-09-25 08:47 | HO.ANESPROP2 ---
HPI - Anesthesia Eval Consult details Narrative: 45yo M for Excision of Posterior Neck Mass PMFSH Active Problems Active Problems: All Active Problems (Updated 09/15/20 @ 00:02 by Tripp Harrison) OLIVER on CPAP (Acute) On beta alma at home (Acute) Obesity (Acute) Hx of gastritis (Acute) HTN (hypertension) (Acute) History of tachycardia (Acute) History of depression (Acute) History of anxiety (Acute) GERD (gastroesophageal reflux disease) (Acute) Fatty liver (Acute) Diabetes (Acute) Chronic back pain (Acute) Arthritis (Acute) Hyperplastic polyp of stomach (Acute) Chronic epigastric pain (Acute) BPH w urinary obs/LUTS (Acute) Erectile dysfunction due to arterial insufficiency (Acute) Subcutaneous mass of neck (Acute) COVID-19 (Acute) Colitis (Acute) Cirrhosis (Acute) Past Medical History Medical History Arthritis Chronic back pain Cirrhosis Colitis COVID-19 Diabetes Dysuria Fatty liver GERD (gastroesophageal reflux disease) History of anxiety History of depression History of tachycardia HTN (hypertension) Hx of gastritis Obesity On beta alma at home OLIVER on CPAP Subcutaneous mass of neck Family History Family History Father No problems noted. Mother HTN (hypertension) Sister Type II diabetes mellitus Surgical History Surgical History History of esophagogastroduodenoscopy (EGD) History of left knee surgery Hx of elbow surgery S/P cubital tunnel release Social History Social History Are you a primary resident care coordinator to a significant other at home: No Do you presently have visiting nurse or other home services: No Alcohol intake: current Alcohol intake frequency: a few times a week Alcohol type: beer Patient Tobacco Use Status: Former Tobacco user Tobacco use type: Cigarette Meds Allergies Allergy/AdvReac Type Severity Reaction Status Date / Time ranitidine [From ZANTAC] Allergy Severe DIFFICULTY Verified 08/13/20 15:26 BREATHING, ITCHING Home Medications Medication Instructions Recorded Confirmed Last Taken Type amlodipine 5 mg tablet 5 mg PO DAILY 11/15/19 08/13/20 Unknown History baclofen 20 mg tablet 20 mg PO QID 11/15/19 08/13/20 Unknown History chlorthalidone 25 mg tablet 25 mg PO DAILY 11/15/19 08/13/20 Unknown History cholecalciferol (vitamin D3) 25 25 mcg PO DAILY 11/15/19 08/13/20 Unknown History mcg (1,000 unit) tablet (Vitamin D3) dexlansoprazole 60 mg 60 mg PO DAILY 11/15/19 08/13/20 Unknown History capsule,biphase delayed release (Dexilant) exenatide microspheres 2 mg/0.65 2 mg SUBCUT Q7D 11/15/19 08/01/20 Unknown History mL subcutaneous pen injector (Directr) lancets 33 gauge (TRUEplus Lancets) #100 ea 11/15/19 08/01/20 Unknown History lisinopril 40 mg tablet 40 mg PO DAILY 11/15/19 08/13/20 Unknown History metoprolol succinate 50 mg 50 mg PO DAILY 11/15/19 08/13/20 Unknown History tablet,extended release 24 hr naproxen 500 mg tablet 500 mg PO BID 11/15/19 08/13/20 Unknown History ondansetron 4 mg disintegrating 4 mg PO Q8H 11/15/19 08/13/20 Unknown History tablet pen needle, diabetic 32 gauge x #50 ea 11/15/19 08/01/20 Unknown History (Unifine Pentips) pentoxifylline 400 mg 400 mg PO BID 11/15/19 08/13/20 Unknown History tablet,extended release fluticasone propionate 110 1 puff PO BID 08/13/20 08/13/20 Unknown History mcg/actuation HFA aerosol inhaler (Flovent HFA) glipizide 5 mg tablet 1 tab PO BID 08/13/20 08/13/20 Unknown History metoclopramide HCl 5 mg tablet 1 tab PO BEDTIME 08/13/20 08/13/20 Unknown History montelukast 10 mg tablet 1 tab PO QPM 08/13/20 08/13/20 Unknown History Exam Exam Date and Time: September 25, 2020 0847 Height,Weight and Vital Signs: Height 5 ft 5 in Weight 274 kg Pertinent Lab Results Pertinent Lab Results: Laboratory Tests 07/04/20 09/14/20 09/14/20 12:37 16:26 16:26 WBC 6.7 Hgb 14.7 Hct 43.1 Plt Count 129 L D PT 12.3 INR 1.0 Sodium 141 Potassium 3.8 Chloride 106 Carbon Dioxide 28 BUN 10 Creatinine 0.77 Assessment and Plan Assessment Anesthesia Assessment: Chart Reviewed
--- NOTE | 2020-09-28 06:45 | PC.NURSE ---
Pt reported eating a nibble of bread at 0600 after becoming nauseous brushing his teeth. Information relayed to Dr. Warren and Dr. France. Both MD's at bedside to inform patient his procedure will be delayed until the afternoon due to eating. Pt agreeable to wait at this time. pt diabetic POC 132. Pt resting comfortably in bed.
[2020-09-28 06:50] VITALS: BMI 45.6
[2020-09-28 06:51] VITALS: BP 149/92; PULSE 97; RESP 16; TEMP 36.2; O2SAT 98
[2020-09-28 07:07] LABS: Glucose, Whole Blood 132 mg/dL (60-115)
[2020-09-28] MEDS: Lactated Ringers 1,000 ML 100 ML IVCONT (07:21)
--- NOTE | 2020-09-28 11:38 | PC.NURSE ---
POC 174 AT 1139. PATIENT RECHECKED AT THIS TIME BECAUSE HE REPORTED FEELING SHAKING.
[2020-09-28 11:43] LABS: Glucose, Whole Blood 174 mg/dL (60-115)
--- NOTE | 2020-09-28 13:09 | PC.NURSE ---
pt reporting being hungry and no longer willing to wait. Pt was informed Dr Warren is currently in a procedure. pt willing to wait only 30 more minutes. this rn asked to see how much longer in the room with current patient. wait would be longer than 30min with closing of procedure and turn over of room. Pt notified of estimated wait time and decided he would not wait any longer. Dr warren, dr France and Nancy, RN notified. IV removed and patient getting dressed. informed patient to call office to reschedule procedure.
== END ==
PROVIDERS: PCP Family Medicine; Visit Provider Surgery
DX: R22.1 Localized swelling, mass and lump, neck (principal); Z53.8 Procedure and treatment not carried out for other reasons; E11.9 Type 2 diabetes mellitus without complications; Z79.4 Long term (current) use of insulin; Z79.899 Other long term (current) drug therapy; Z88.8 Allergy status to other drugs, medicaments and biological substances
CPT/HCPCS: 82947

== ENCOUNTER 2020-10-28 13:28 | Emergency (ER) | payer MEDICAID, SELFPAY ==
[2020-10-28 13:33] VITALS: BP 140/83; PULSE 97; RESP 18; TEMP 36.8; O2SAT 98; BMI 41.3
--- NOTE | 2020-10-28 14:17 | ED.BACK ---
HPI - Back Pain/Injury General Chief Complaint: Back Pain/Injury Stated Complaint: back pain Time Seen by Provider: 10/28/20 14:17 Source: patient Mode of arrival: ambulatory Limitations: no limitations History of Present Illness HPI Narrative: 45 y/o male with history of chronic back pain on chronic opiates presents to the ER with reports of increased low back pain in the setting of being unable to get his usual steroid injections to his back. His provider has been on vacation. He denies any new injury or trauma. He has been taking his tramadol, flexeril and naproxen as directed without improvement. He is having trouble sleeping because of the pain. No weakness, numbness, tingling or incontinence. No fevers. He reports a history of 5 herniated discs and he may need to get surgery if these injections are not working. MD elicited complaint: back pain Pertinent past history: prior back pain Onset (ago): day(s) (7) Timing: constant Severity: severe Pain scale (0-10): 9 Similar Symptoms Previously: Yes Quality: sharp Location: right lower back and left lower back Radiation: none Exacerbating factors: movement and walking Relieving factors: immobilization and medication Context: unknown Associated symptoms: denies other symptoms Treatments prior to arrival: NSAIDS Work related injury: No Related Data Home Medications Medication Instructions Recorded Confirmed amlodipine 5 mg tablet 5 mg PO DAILY 11/15/19 08/13/20 baclofen 20 mg tablet 20 mg PO QID 11/15/19 08/13/20 chlorthalidone 25 mg tablet 25 mg PO DAILY 11/15/19 08/13/20 cholecalciferol (vitamin D3) 25 25 mcg PO DAILY 11/15/19 08/13/20 mcg (1,000 unit) tablet (Vitamin D3) dexlansoprazole 60 mg 60 mg PO DAILY 11/15/19 08/13/20 capsule,biphase delayed release (Dexilant) exenatide microspheres 2 mg/0.65 2 mg SUBCUT Q7D 11/15/19 08/01/20 mL subcutaneous pen injector (ByRevuzenic) lancets 33 gauge (TRUEplus Lancets) #100 ea 11/15/19 08/01/20 lisinopril 40 mg tablet 40 mg PO DAILY 11/15/19 08/13/20 metoprolol succinate 50 mg 50 mg PO DAILY 11/15/19 08/13/20 tablet,extended release 24 hr naproxen 500 mg tablet 500 mg PO BID 11/15/19 08/13/20 ondansetron 4 mg disintegrating 4 mg PO Q8H 11/15/19 08/13/20 tablet pen needle, diabetic 32 gauge x #50 ea 11/15/19 08/01/20 5/32 (Unifine Pentips) pentoxifylline 400 mg 400 mg PO BID 11/15/19 08/13/20 tablet,extended release fluticasone propionate 110 1 puff PO BID 08/13/20 08/13/20 mcg/actuation HFA aerosol inhaler (Flovent HFA) glipizide 5 mg tablet 1 tab PO BID 08/13/20 08/13/20 metoclopramide HCl 5 mg tablet 1 tab PO BEDTIME 08/13/20 08/13/20 montelukast 10 mg tablet 1 tab PO QPM 08/13/20 08/13/20 alcohol swabs (Alcohol Prep Pads) pad TOPICAL BID 09/26/20 fluticasone propionate 50 1 spray INTRANASAL DAILY 09/26/20 mcg/actuation nasal spray,suspension gabapentin 300 mg capsule 300 mg PO BID-TID PRN 09/26/20 insulin lispro 100 unit/mL 4 unit SUBCUT DIRECTED 09/26/20 subcutaneous pen (Humalog KwikPen (U-100) Insulin) naproxen 250 mg tablet 250 mg PO BID PRN 09/26/20 semaglutide 1 mg/dose (2 mg/1.5 1 mg SUBCUT QWEEK 09/26/20 mL) subcutaneous pen injector (Ozempic) semaglutide 1 mg/dose (4 mg/3 mL) 1 mg SUBCUT QWEEK 09/26/20 subcutaneous pen injector (Ozempic) tramadol 50 mg tablet 50 mg PO Q12H PRN 09/26/20 Previous Rx's Medication Instructions Recorded acetaminophen 500 mg tablet 500 mg PO Q6H PRN #20 tab 12/24/19 (Tylenol Extra Strength) cyclobenzaprine 5 mg tablet 5 mg PO Q8H PRN 5 Days #14 tab 12/24/19 lidocaine 5 % topical patch 1 patch TOPICAL DAILY PRN #30 ea 12/24/19 (Lidoderm) MDD remove after 12 hours ibuprofen 800 mg tablet 800 mg PO Q8H PRN #30 tab 01/08/20 oxycodone 5 mg tablet 5 mg PO BID PRN #7 tab 01/08/20 cyclobenzaprine 10 mg tablet 10 mg PO TID PRN #15 tab 01/16/20 hydrocodone 5 mg-acetaminophen 300 1 tab PO TID PRN #10 tab 01/16/20 mg tablet sildenafil 100 mg tablet 100 mg PO DAILY PRN 30 Days #6 tab 04/25/20 tadalafil 5 mg tablet 5 mg PO DAILY PRN 90 Days #90 tab 06/27/20 tamsulosin 0.4 mg capsule 0.4 mg PO DAILY 30 Days #30 cap 07/30/20 lidocaine 5 % topical patch 1 patch TOPICAL DAILY #15 ea 10/28/20 (Lidoderm) prednisone 50 mg tablet 50 mg PO DAILY #5 tab 10/28/20 Allergies Allergy/AdvReac Type Severity Reaction Status Date / Time ranitidine [From ZANTAC] Allergy Severe DIFFICULTY Verified 10/28/20 13:33 BREATHING, ITCHING Review of Systems Review of Systems: Constitutional: No Fever, No Chills Gastrointestinal: No Nausea, No Vomiting, No abdominal Pain Genitourinary: No Dysuria, No Urinary Frequency, No Hematuria Musculoskeletal: + joint pain, + Myalgias Skin: No Skin Lesions, No rash Neuro: No Weakness, No Numbness, No Dizziness, No Headache Psych: No Anxiety/Panic, No Depression Heme/Lymph: No Bruising, No Lymphadenopathy PMFSH Past Medical History Medical History Arthritis Chronic back pain Cirrhosis Colitis COVID-19 Diabetes Dysuria Fatty liver GERD (gastroesophageal reflux disease) History of anxiety History of depression History of tachycardia HTN (hypertension) Hx of gastritis Obesity On beta alma at home OLIVER on CPAP Subcutaneous mass of neck Surgical History History of esophagogastroduodenoscopy (EGD) History of left knee surgery Hx of elbow surgery S/P cubital tunnel release Family History Family History Father No problems noted. Mother HTN (hypertension) Sister Type II diabetes mellitus Social History Social History Are you a primary animal daycare provider to a significant other at home: No Do you presently have visiting nurse or other home services: No Alcohol intake: current Alcohol intake frequency: a few times a week Alcohol type: beer Patient Tobacco Use Status: Former Tobacco user Tobacco use type: Cigarette Advance Directives: No Advance Directives Information Provided: Yes Physical Exam Vital Signs: Vital Signs: Last Vital Signs Temp 98.2 F 10/28/20 13:33 Pulse 97 10/28/20 13:33 Resp 18 10/28/20 13:33 BP 140/83 H 10/28/20 13:33 Pulse Ox 98 10/28/20 13:33 Body Mass Index 41.3 Appearance: Alert. Oriented X3. No acute distress. Eyes: Pupils equal, round and reactive to light. ENT: Pharynx normal. Neck: Normal inspection. Neck supple. Respiratory: No respiratory distress. Abdomen: Obese, Soft and nontender. +BS x4 Back: tender lower lumbar area bilaterally. no spasm palpable. no spinal tenderness. limited spinal ROM due to pain. Skin: Skin warm and dry. Normal skin color. Normal skin turgor. No rashes. Extremities: No lower extremity edema. Neuro: Oriented X 3. Slow but steady gait. Course Course Course Narrative: 45 y/o male with history of chronic low back pain presenting to the ER with worsening pain despite taking his medications at home. He is wanting to get his steroid injections. Explained we are unable to do this in the Emergency room but we can start a brief course of oral steroids to help with inflammation and pain. Discussed impact on glucose and need for close monitoring of his sugars. He is asking for stronger medication for pain, [employer] reviewed he gets monthly Tramadol from his PCP, last prescribed 1 month ago. He was encouraged to call his PCP tomorrow to arrange a refill. Given IM toradol here and will start prednisone. No red flag symptoms of LBP. Stable for d/c home with outpatient follow up. Discharge Plan Discharge Clinical Impression: Chronic back pain Qualifiers: Back pain location: low back pain Back pain laterality: bilateral Sciatica presence: without sciatica Qualified Code(s): M54.5 - Low back pain Patient Disposition: Home, Self-Care Instructions: Chronic Back Pain (DC) Additional Instructions: No bending, lifting or twisting. Use ice several times per day for 20 minutes at a time for the next 48 hours and then change to heat. Take medication as prescribed to help with pain and discomfort. Continue taking all of your other medications for back pain as directed. Follow up with your Primary Care Doctor this week. Follow up with them for your narcotic pain medicine. If your pain worsens, if you develop new numbness, tingling, weakness, loss of function or incontinence call 911 or come back to the ER right away for evaluation. Prescriptions: New prednisone 50 mg tablet 50 mg PO DAILY Qty: 5 RF: 0 lidocaine [Lidoderm] 5 % adhesive patch,medicated 1 patch topical DAILY Qty: 15 RF: 0 No Action sildenafil 100 mg tablet 100 mg PO DAILY PRN (Reason: sexual activity) 30 Days Qty: 6 RF: 2 tamsulosin 0.4 mg capsule 0.4 mg PO DAILY 30 Days Qty: 30 RF: 6 acetaminophen [Tylenol Extra Strength] 500 mg tablet 500 mg PO Q6H PRN (Reason: pain or fever) Qty: 20 RF: 0 lidocaine [Lidoderm] 5 % adhesive patch,medicated 1 patch topical DAILY MDD remove after 12 hours PRN (Reason: pain) Qty: 30 RF: 0 cyclobenzaprine 5 mg tablet 5 mg PO Q8H PRN (Reason: pain (scale score 7-10)) 5 Days Qty: 14 RF: 0 ibuprofen 800 mg tablet 800 mg PO Q8H PRN (Reason: pain) Qty: 30 RF: 0 oxycodone 5 mg tablet 5 mg PO BID PRN (Reason: pain) Qty: 7 RF: 0 cyclobenzaprine 10 mg tablet 10 mg PO TID PRN (Reason: muscle spasm) Qty: 15 RF: 0 hydrocodone-acetaminophen 5-300 mg tablet 1 tab PO TID PRN (Reason: pain) Qty: 10 RF: 0 montelukast 10 mg tablet 1 tab PO QPM RF: 0 glipizide 5 mg tablet 1 tab PO BID RF: 0 metoclopramide HCl 5 mg tablet 1 tab PO BEDTIME RF: 0 Flovent HFA 110 mcg/actuation HFA aerosol inhaler 1 puff PO BID RF: 0 tadalafil 5 mg tablet 5 mg PO DAILY PRN (Reason: sexual activity) 90 Days Qty: 90 RF: 1 Dexilant 60 mg capsule,biphase delayed releas 60 mg PO DAILY RF: 0 ondansetron 4 mg tablet,disintegrating 4 mg PO Q8H RF: 0 pentoxifylline 400 mg tablet extended release 400 mg PO BID RF: 0 baclofen 20 mg tablet 20 mg PO QID RF: 0 (DME) pen needle, diabetic [Unifine Pentips] 32 gauge x 5/32 needle See Rx Instructions .ROUTE .MEDSUPPLY Qty: 50 RF: 0 naproxen 500 mg tablet 500 mg PO BID RF: 0 (DME) lancets [TRUEplus Lancets] 33 gauge misc See Rx Instructions .ROUTE .MEDSUPPLY Qty: 100 RF: 0 chlorthalidone 25 mg tablet 25 mg PO DAILY RF: 0 amlodipine 5 mg tablet 5 mg PO DAILY RF: 0 lisinopril 40 mg tablet 40 mg PO DAILY RF: 0 cholecalciferol (vitamin D3) [Vitamin D3] 25 mcg (1,000 unit) tablet 25 mcg PO DAILY RF: 0 metoprolol succinate 50 mg tablet extended release 24 hr 50 mg PO DAILY RF: 0 Bydureon 2 mg/0.65 mL pen injector 2 mg subcut Q7D RF: 0 Referrals: Hanna Ocasio MD [Primary Care Provider] - 1 day (acute on chronic back pain, asking for more narcotics ) Print Language: Bulgarian
[2020-10-28] MEDS: Ketorolac Tromethamine 15 MG/ML VIAL 30 MG IM (14:38)
== END 2020-10-28 14:45 | disposition home or self-care (01) ==
PROVIDERS: Emergency Provider Emergency Medicine; PCP Family Medicine
DX: M54.5 Low back pain (principal); Z87.891 Personal history of nicotine dependence; Z79.899 Other long term (current) drug therapy
CPT/HCPCS: 96372; 99283; J1885

== ENCOUNTER 2020-11-14 15:30 | Emergency (ER) | payer MEDICAID, SELFPAY ==
--- NOTE | ~2020-11-14 | XR_ITS ---
EXAMINATION: XR KNEE, LEFT CLINICAL INFORMATION: Pain. Fall. COMPARISON: Previous x-rays most recent May 2018 TECHNIQUE: Four views of the left knee. FINDINGS: Bone alignment is normal. No fracture or dislocation is seen. There is an intramedullary marizol seen in the left proximal tibial shaft that appears unchanged. There is arthritis at tibial joint with joint space narrowing and osteophyte formation. There is lateral degenerative meniscal calcification. There is soft tissue calcification in the patellar tendon. There is a small joint effusion. XR/XR knee LT 3V IMPRESSION: No fracture or dislocation. Mild left knee arthritis.
[2020-11-14 15:44] VITALS: BP 156/106; PULSE 108; RESP 16; TEMP 36.9; O2SAT 98; BMI 35.7
--- NOTE | 2020-11-14 16:15 | ED.GENADULT ---
HPI - General Adult General Chief complaint: Back Pain/Injury Stated complaint: fall Time Seen by Provider: 11/14/20 16:15 Source: patient Limitations: no limitations History of Present Illness HPI narrative: Patient has a longstanding history of chronic back pain left leg sciatica. Patient states he fell at home yesterday injuring his left knee. Pain increases with range of motion and palpation. Pain is 9/10. Patient denies loss consciousness headache fever chills. Symptoms mild to moderate. Patient states no relief with [id number] meds at home and unable to sleep at night. Patient has extensive medical history for hypertension gastritis anxiety reflux disease. Patient's has no other medical complaints at this time. Related Data Home Medications Medication Instructions Recorded Confirmed amlodipine 5 mg tablet 5 mg PO DAILY 11/15/19 08/13/20 baclofen 20 mg tablet 20 mg PO QID 11/15/19 08/13/20 chlorthalidone 25 mg tablet 25 mg PO DAILY 11/15/19 08/13/20 cholecalciferol (vitamin D3) 25 25 mcg PO DAILY 11/15/19 08/13/20 mcg (1,000 unit) tablet (Vitamin D3) dexlansoprazole 60 mg 60 mg PO DAILY 11/15/19 08/13/20 capsule,biphase delayed release (Dexilant) exenatide microspheres 2 mg/0.65 2 mg SUBCUT Q7D 11/15/19 08/01/20 mL subcutaneous pen injector (Datadecision) lancets 33 gauge (TRUEplus Lancets) #100 11/15/19 08/01/20 lisinopril 40 mg tablet 40 mg PO DAILY 11/15/19 08/13/20 metoprolol succinate 50 mg 50 mg PO DAILY 11/15/19 08/13/20 tablet,extended release 24 hr naproxen 500 mg tablet 500 mg PO BID 11/15/19 08/13/20 ondansetron 4 mg disintegrating 4 mg PO Q8H 11/15/19 08/13/20 tablet pen needle, diabetic 32 gauge x #50 11/15/19 08/01/20/32 (Unifine Pentips) pentoxifylline 400 mg 400 mg PO BID 11/15/19 08/13/20 tablet,extended release fluticasone propionate 110 1 puff PO BID 08/13/20 08/13/20 mcg/actuation HFA aerosol inhaler (Flovent HFA) glipizide 5 mg tablet 1 tab PO BID 08/13/20 08/13/20 metoclopramide HCl 5 mg tablet 1 tab PO BEDTIME 08/13/20 08/13/20 montelukast 10 mg tablet 1 tab PO QPM 08/13/20 08/13/20 alcohol swabs (Alcohol Prep Pads) pad TOPICAL BID 09/26/20 fluticasone propionate 50 1 spray INTRANASAL DAILY 09/26/20 mcg/actuation nasal spray,suspension gabapentin 300 mg capsule 300 mg PO BID-TID PRN 09/26/20 insulin lispro 100 unit/mL 4 unit SUBCUT DIRECTED 09/26/20 subcutaneous pen (Humalog KwikPen (U-100) Insulin) naproxen 250 mg tablet 250 mg PO BID PRN 09/26/20 semaglutide 1 mg/dose (2 mg/1.5 1 mg SUBCUT QWEEK 09/26/20 mL) subcutaneous pen injector (Ozempic) semaglutide 1 mg/dose (4 mg/3 mL) 1 mg SUBCUT QWEEK 09/26/20 subcutaneous pen injector (Ozempic) tramadol 50 mg tablet 50 mg PO Q12H PRN 09/26/20 Previous Rx's Medication Instructions Recorded acetaminophen 500 mg tablet 500 mg PO Q6H PRN #20 tab 12/24/19 (Tylenol Extra Strength) cyclobenzaprine 5 mg tablet 5 mg PO Q8H PRN 5 Days #14 tab 12/24/19 lidocaine 5 % topical patch 1 patch TOPICAL DAILY PRN #30 ea 12/24/19 (Lidoderm) MDD remove after 12 hours ibuprofen 800 mg tablet 800 mg PO Q8H PRN #30 tab 01/08/20 oxycodone 5 mg tablet 5 mg PO BID PRN #7 tab 01/08/20 cyclobenzaprine 10 mg tablet 10 mg PO TID PRN #15 tab 01/16/20 hydrocodone 5 mg-acetaminophen 300 1 tab PO TID PRN #10 tab 01/16/20 mg tablet sildenafil 100 mg tablet 100 mg PO DAILY PRN 30 Days #6 tab 04/25/20 tadalafil 5 mg tablet 5 mg PO DAILY PRN 90 Days #90 tab 06/27/20 tamsulosin 0.4 mg capsule 0.4 mg PO DAILY 30 Days #30 cap 07/30/20 lidocaine 5 % topical patch 1 patch TOPICAL DAILY #15 ea 10/28/20 (Lidoderm) prednisone 50 mg tablet 50 mg PO DAILY #5 tab 10/28/20 diazepam 5 mg tablet (Valium) 5 mg PO BEDTIME PRN #7 tab 11/14/20 Allergies Allergy/AdvReac Type Severity Reaction Status Date / Time ranitidine [From ZANTAC] Allergy Severe DIFFICULTY Verified 10/28/20 13:33 BREATHING, ITCHING Review of Systems Constitutional: Constitutional: Denies chills, Denies fatigue, Denies fever(s) and Denies weakness ENT: Denies vertigo Cardiovascular: Cardiovascular: Denies chest pain and Denies dyspnea Respiratory: Respiratory: Denies cough and Denies dyspnea Gastrointestinal: Gastrointestinal: Denies diarrhea, Denies nausea and Denies vomiting Musculoskeletal: Musculoskeletal: Reports back pain and Reports arthralgias Comments: Left-sided knee pain Neurologic: Denies vertigo and Denies weakness Endocrine: Endocrine: Denies fatigue Hematologic/Lymphatic: Hematologic/Lymphatic: Reports no additional hematologic/lymphatic complaints Allergic/Immunologic: Allergic/Immunologic: Reports no additional allergic/immunologic complaints [facility] Past Medical History Attestation statement: The following information was validated with the patient. Medical History Arthritis Chronic back pain Cirrhosis Colitis COVID-19 Diabetes Dysuria Fatty liver GERD (gastroesophageal reflux disease) History of anxiety History of depression History of tachycardia HTN (hypertension) Hx of gastritis Obesity On beta alma at home OLIVER on CPAP Subcutaneous mass of neck Surgical History History of esophagogastroduodenoscopy (EGD) History of left knee surgery Hx of elbow surgery S/P cubital tunnel release Family History Family History Father No problems noted. Mother HTN (hypertension) Sister Type II diabetes mellitus Social History Social History Are you a primary home day care provider to a significant other at home: No Do you presently have visiting nurse or other home services: No Alcohol intake: current Alcohol intake frequency: a few times a week Alcohol type: beer Patient Tobacco Use Status: Former Tobacco user Tobacco use type: Cigarette Advance Directives: No Advance Directives Information Provided: No Physical Exam Vital Signs: Vital Signs: Last Vital Signs Temp 98.4 F 11/14/20 15:44 Pulse 108 H 11/14/20 15:44 Resp 16 11/14/20 15:44 BP 156/106 H 11/14/20 15:44 Pulse Ox 98 11/14/20 15:44 Body Mass Index 35.7 vital signs have been reviewed as normal and appeared to be correct. Blood pressure normal. Heart rate normal. Respiration rate normal. Temperature normal. Oxygen saturation normal. Appearance: Alert. Oriented X3. No acute distress. Head: Normal external exam. Normocephalic. Atraumatic. Eyes: PERRLA. EOMI. Conjunctiva and sclera normal. Eyelids normal. ENT: Pharynx normal. Uvula midline. Moist mucous membranes. Neck: Soft full range of motion, no JVD CVS: Heart regular rate and rhythm no murmurs and rubs Respiratory: Breath sounds are clear to auscultation bilaterally. No accessory muscle use noted. Abdomen: Soft nontender no rebound or guarding positive bowel sounds Back: No positive paraspinal muscle tenderness of lumbar spine left greater than right no midline tenderness. Skin: Skin warm and dry. Normal skin color. Normal skin turgor. No rashes/lesions/lacerations noted. Extremities: Diffuse tenderness left knee positive lateral joint line tenderness no crepitus. Decreased range of motion secondary to pain. Difficulty and to ascertain laxity of the joint on exam. Neuro: Oriented X 3. No motor deficit. No sensory deficit. Reflexes normal. Course Course Course Narrative: Chronic back pain Lumbar strain Left leg sciatica Left knee fracture Left knee contusion 4:24 p.m. 5 mg Valium p.o. 5 mg Percocet p.o. 4:50 p.m. Patient is on chronic tramadol Maspat reviewed will give patient a short course of Valium at bedtime. Medical Decision Making Imaging Data knee: Radiologist's impression: [address] [address] XRay Report Signed Patient: Christian Tan MR#: [id number] : 1975 Acct:[id number] Age/Sex: 45 / M ADM Date: 11/14/20 Loc: HO.ED Attending Dr: Ordering Physician: Ovidio Almendarez Date of Service: 11/14/20 Procedure(s): XR knee LT 3V Accession Number(s): [id number] cc: Ovidio Almendarez ~ EXAMINATION: XR KNEE, LEFT CLINICAL INFORMATION: Pain. Fall.? COMPARISON: Previous x-rays most recent May 2018? TECHNIQUE: Four views of the left knee. FINDINGS: Bone alignment is normal. No fracture or dislocation is seen. There is an intramedullary marizlo seen in the left proximal tibial shaft that appears unchanged. There is arthritis at tibial joint with joint space narrowing and osteophyte formation. There is lateral degenerative meniscal calcification. There is soft tissue calcification in the patellar tendon. There is a small joint effusion.? XR/XR knee LT 3V IMPRESSION: No fracture or dislocation. Mild left knee arthritis. ? Dictated By: Lottie Bender MD Signed By: <Electronically signed by Lottie Bender MD in OV> 11/14/20 1645 DD/ 1618 TD/TT:? Mix Chemist: KRISTAL Discharge Plan Discharge Clinical Impression: Contusion of knee, left, Chronic back pain Patient Disposition: Home, Self-Care Instructions: Back Pain (ED) Additional Instructions: It is important he follow up with who is managing her current back pain to see if they are is any changes that can make in the management. X-ray of the left knee is negative Will prescribe her some medication to help you sleep tonight. Prescriptions: New diazepam [Valium] 5 mg tablet 5 mg PO BEDTIME PRN (Reason: sleep) Qty: 7 RF: 0 No Action sildenafil 100 mg tablet 100 mg PO DAILY PRN (Reason: sexual activity) 30 Days Qty: 6 RF: 2 tamsulosin 0.4 mg capsule 0.4 mg PO DAILY 30 Days Qty: 30 RF: 6 acetaminophen [Tylenol Extra Strength] 500 mg tablet 500 mg PO Q6H PRN (Reason: pain or fever) Qty: 20 RF: 0 lidocaine [Lidoderm] 5 % adhesive patch,medicated 1 patch topical DAILY MDD remove after 12 hours PRN (Reason: pain) Qty: 30 RF: 0 cyclobenzaprine 5 mg tablet 5 mg PO Q8H PRN (Reason: pain (scale score 7-10)) 5 Days Qty: 14 RF: 0 ibuprofen 800 mg tablet 800 mg PO Q8H PRN (Reason: pain) Qty: 30 RF: 0 oxycodone 5 mg tablet 5 mg PO BID PRN (Reason: pain) Qty: 7 RF: 0 cyclobenzaprine 10 mg tablet 10 mg PO TID PRN (Reason: muscle spasm) Qty: 15 RF: 0 hydrocodone-acetaminophen 5-300 mg tablet 1 tab PO TID PRN (Reason: pain) Qty: 10 RF: 0 montelukast 10 mg tablet 1 tab PO QPM RF: 0 glipizide 5 mg tablet 1 tab PO BID RF: 0 metoclopramide HCl 5 mg tablet 1 tab PO BEDTIME RF: 0 Flovent HFA 110 mcg/actuation HFA aerosol inhaler 1 puff PO BID RF: 0 prednisone 50 mg tablet 50 mg PO DAILY Qty: 5 RF: 0 lidocaine [Lidoderm] 5 % adhesive patch,medicated 1 patch topical DAILY Qty: 15 RF: 0 tadalafil 5 mg tablet 5 mg PO DAILY PRN (Reason: sexual activity) 90 Days Qty: 90 RF: 1 Dexilant 60 mg capsule,biphase delayed releas 60 mg PO DAILY RF: 0 ondansetron 4 mg tablet,disintegrating 4 mg PO Q8H RF: 0 pentoxifylline 400 mg tablet extended release 400 mg PO BID RF: 0 baclofen 20 mg tablet 20 mg PO QID RF: 0 (DME) pen needle, diabetic [Unifine Pentips] 32 gauge x 5/32 needle See Rx Instructions .ROUTE .MEDSUPPLY Qty: 50 RF: 0 naproxen 500 mg tablet 500 mg PO BID RF: 0 (DME) lancets [TRUEplus Lancets] 33 gauge misc See Rx Instructions .ROUTE .MEDSUPPLY Qty: 100 RF: 0 chlorthalidone 25 mg tablet 25 mg PO DAILY RF: 0 amlodipine 5 mg tablet 5 mg PO DAILY RF: 0 lisinopril 40 mg tablet 40 mg PO DAILY RF: 0 cholecalciferol (vitamin D3) [Vitamin D3] 25 mcg (1,000 unit) tablet 25 mcg PO DAILY RF: 0 metoprolol succinate 50 mg tablet extended release 24 hr 50 mg PO DAILY RF: 0 Bydureon 2 mg/0.65 mL pen injector 2 mg subcut Q7D RF: 0 Print Language: Turkish
[2020-11-14] MEDS: diazePAM 5 MG TABLET PO (16:44)
[2020-11-14] MEDS: oxyCODONE HCl Immed Release 5 MG TABLET PO (16:44)
[2020-11-14 17:32] VITALS: BP 137/89; PULSE 94; RESP 17; O2SAT 98
== END 2020-11-14 17:40 | disposition home or self-care (01) ==
LOC: HO.ED 17:17
PROVIDERS: Emergency Provider Internal Medicine; PCP Family Medicine
DX: S80.02XA Contusion of left knee, initial encounter (principal); M54.5 Low back pain; M25.562 Pain in left knee; X58.XXXA Exposure to other specified factors, initial encounter; Y93.9 Activity, unspecified; Y92.9 Unspecified place or not applicable; Y99.9 Unspecified external cause status; Z79.899 Other long term (current) drug therapy; F17.210 Nicotine dependence, cigarettes, uncomplicated; Z71.6 Tobacco abuse counseling
CPT/HCPCS: 73562; 99283; 99284

== ENCOUNTER 2020-12-04 08:01 | Day surgery (SDC) | payer MEDICAID, SELFPAY ==
[2020-10-31 10:12] VITALS: BMI 45.6
--- NOTE | 2020-12-03 10:31 | P.CONAN_ITS ---
Documented by User: Ghislaine Kaba NP 12/03/20 10:34 HPI - Anesthesia Eval Consult details Narrative: 45yo M for Excision of Posterior Neck Mass PMFSH Active Problems Active Problems: All Active Problems (Updated 11/15/20 @ 00:03 by Tripp Harrison) OLIVER on CPAP (Acute) On beta alma at home (Acute) Obesity (Acute) Hx of gastritis (Acute) HTN (hypertension) (Acute) History of tachycardia (Acute) History of depression (Acute) History of anxiety (Acute) GERD (gastroesophageal reflux disease) (Acute) Fatty liver (Acute) Diabetes (Acute) Chronic back pain (Acute) Arthritis (Acute) Hyperplastic polyp of stomach (Acute) Chronic epigastric pain (Acute) BPH w urinary obs/LUTS (Acute) Erectile dysfunction due to arterial insufficiency (Acute) Subcutaneous mass of neck (Acute) COVID-19 (Acute) Colitis (Acute) Cirrhosis (Acute) Past Medical History Medical History Arthritis Asthma Chronic back pain Cirrhosis Colitis COVID-19 Diabetes Dysuria Fatty liver GERD (gastroesophageal reflux disease) History of anxiety History of depression History of tachycardia HTN (hypertension) Hx of gastritis Obesity On beta alma at home OLIVER on CPAP Subcutaneous mass of neck Family History Family History Father No problems noted. Mother HTN (hypertension) Sister Type II diabetes mellitus Surgical History Surgical History History of esophagogastroduodenoscopy (EGD) History of left knee surgery Hx of elbow surgery S/P cubital tunnel release Social History Social History Are you a primary patient care technician to a significant other at home: No Do you presently have visiting nurse or other home services: No Alcohol intake: current Alcohol intake frequency: a few times a week Alcohol type: beer Patient Tobacco Use Status: Former Tobacco user Tobacco use type: Cigarette Use of substances other than those prescribed or required for medical reasons: Yes Substance Use Frequency: Daily Are you DNR?: No Advance Directives: No Advance Directives Information Provided: Yes Meds Allergies Allergy/AdvReac Type Severity Reaction Status Date / Time ranitidine [From ZANTAC] Allergy Severe DIFFICULTY Verified 10/28/20 13:33 BREATHING, ITCHING Home Medications Medication Instructions Recorded Confirmed Last Taken Type amlodipine 5 mg tablet 5 mg PO DAILY 11/15/19 08/13/20 12/03/20 07:45 History baclofen 20 mg tablet 20 mg PO QID 11/15/19 08/13/20 Unknown History chlorthalidone 25 mg tablet 25 mg PO DAILY 11/15/19 08/13/20 Unknown History cholecalciferol (vitamin D3) 25 25 mcg PO DAILY 11/15/19 08/13/20 Unknown History mcg (1,000 unit) tablet (Vitamin D3) dexlansoprazole 60 mg 60 mg PO DAILY 11/15/19 08/13/20 12/03/20 07:45 History capsule,biphase delayed release (Dexilant) exenatide microspheres 2 mg/0.65 2 mg SUBCUT Q7D 11/15/19 08/01/20 Unknown History mL subcutaneous pen injector (Fontself) lancets 33 gauge (TRUEplus Lancets) #100 ea 11/15/19 08/01/20 Unknown History lisinopril 40 mg tablet 40 mg PO DAILY 11/15/19 08/13/20 Unknown History metoprolol succinate 50 mg 50 mg PO DAILY 11/15/19 08/13/20 12/03/20 07:45 History tablet,extended release 24 hr naproxen 500 mg tablet 500 mg PO BID 11/15/19 08/13/20 Unknown History pen needle, diabetic 32 gauge x #50 ea 11/15/19 08/01/20 Unknown History (Unifine Pentips) fluticasone propionate 110 1 puff PO BID 08/13/20 08/13/20 Unknown History mcg/actuation HFA aerosol inhaler (Flovent HFA) glipizide 5 mg tablet 1 tab PO BID 08/13/20 08/13/20 Unknown History metoclopramide HCl 5 mg tablet 1 tab PO BEDTIME 08/13/20 08/13/20 Unknown History montelukast 10 mg tablet 1 tab PO QPM 08/13/20 08/13/20 Unknown History alcohol swabs (Alcohol Prep Pads) pad TOPICAL BID 09/26/20 Unknown History fluticasone propionate 50 1 spray INTRANASAL DAILY 09/26/20 Unknown History mcg/actuation nasal spray,suspension gabapentin 300 mg capsule 300 mg PO BID-TID PRN 09/26/20 12/03/20 07:45 History insulin lispro 100 unit/mL 4 unit SUBCUT DIRECTED 09/26/20 Unknown History subcutaneous pen (Humalog KwikPen (U-100) Insulin) naproxen 250 mg tablet 250 mg PO BID PRN 09/26/20 Unknown History semaglutide 1 mg/dose (2 mg/1.5 1 mg SUBCUT QWEEK 09/26/20 Unknown History mL) subcutaneous pen injector (Ozempic) semaglutide 1 mg/dose (4 mg/3 mL) 1 mg SUBCUT QWEEK 09/26/20 Unknown History subcutaneous pen injector (Ozempic) tramadol 50 mg tablet 50 mg PO Q12H PRN 09/26/20 Unknown History Exam Exam Date and Time: December 03, 2020 1031 Height,Weight and Vital Signs: Height 5 ft 5 in Weight 124.284 kg Pertinent Lab Results Pertinent Lab Results: Laboratory Tests 07/04/20 09/14/20 09/14/20 12:37 16:26 16:26 WBC 6.7 Hgb 14.7 Hct 43.1 Plt Count 129 L D PT 12.3 INR 1.0 Sodium 141 Potassium 3.8 Chloride 106 Carbon Dioxide 28 BUN 10 Creatinine 0.77 Calcium 9.4 Magnesium 2.0 Total Bilirubin 0.6 AST 49 H ALT 52 H Alkaline Phosphatase 94 Total Protein 7.3 Albumin 3.8 Assessment and Plan Assessment Anesthesia Assessment: Chart Reviewed Documented by User: Lottie Avina MD 12/04/20 09:24 [facility] Past Medical History Medical History Arthritis Asthma Chronic back pain Cirrhosis Colitis COVID-19 Diabetes Dysuria Fatty liver GERD (gastroesophageal reflux disease) History of anxiety History of depression History of tachycardia HTN (hypertension) Hx of gastritis Obesity On beta alma at home OLIVER on CPAP Subcutaneous mass of neck Family History Family History Father No problems noted. Mother HTN (hypertension) Sister Type II diabetes mellitus Surgical History Surgical History History of esophagogastroduodenoscopy (EGD) History of left knee surgery Hx of elbow surgery S/P cubital tunnel release History of Problems with Anesthesia: No Social History Social History Are you a primary patient care technician to a significant other at home: No Do you presently have visiting nurse or other home services: No Alcohol intake: current Alcohol intake frequency: a few times a week Alcohol type: beer Patient Tobacco Use Status: Former Tobacco user Tobacco use type: Cigarette Use of substances other than those prescribed or required for medical reasons: Yes Substance Use Frequency: Daily Are you DNR?: No Advance Directives: No Advance Directives Information Provided: Yes Meds Allergies Allergy/AdvReac Type Severity Reaction Status Date / Time ranitidine [From ZANTAC] Allergy Severe DIFFICULTY Verified 10/28/20 13:33 BREATHING, ITCHING Home Medications Medication Instructions Recorded Confirmed Last Taken Type amlodipine 5 mg tablet 5 mg PO DAILY 11/15/19 08/13/20 12/03/20 07:45 History baclofen 20 mg tablet 20 mg PO QID 11/15/19 08/13/20 Unknown History chlorthalidone 25 mg tablet 25 mg PO DAILY 11/15/19 08/13/20 Unknown History cholecalciferol (vitamin D3) 25 25 mcg PO DAILY 11/15/19 08/13/20 Unknown History mcg (1,000 unit) tablet (Vitamin D3) dexlansoprazole 60 mg 60 mg PO DAILY 11/15/19 08/13/20 12/03/20 07:45 History capsule,biphase delayed release (Dexilant) exenatide microspheres 2 mg/0.65 2 mg SUBCUT Q7D 11/15/19 08/01/20 Unknown History mL subcutaneous pen injector (Bydureon) lancets 33 gauge (TRUEplus Lancets) #100 ea 11/15/19 08/01/20 Unknown History lisinopril 40 mg tablet 40 mg PO DAILY 11/15/19 08/13/20 Unknown History metoprolol succinate 50 mg 50 mg PO DAILY 11/15/19 08/13/20 12/03/20 07:45 History tablet,extended release 24 hr naproxen 500 mg tablet 500 mg PO BID 11/15/19 08/13/20 Unknown History pen needle, diabetic 32 gauge x #50 ea 11/15/19 08/01/20 Unknown History (Unifine Pentips) fluticasone propionate 110 1 puff PO BID 08/13/20 08/13/20 Unknown History mcg/actuation HFA aerosol inhaler (Flovent HFA) glipizide 5 mg tablet 1 tab PO BID 08/13/20 08/13/20 Unknown History metoclopramide HCl 5 mg tablet 1 tab PO BEDTIME 08/13/20 08/13/20 Unknown History montelukast 10 mg tablet 1 tab PO QPM 08/13/20 08/13/20 Unknown History alcohol swabs (Alcohol Prep Pads) pad TOPICAL BID 09/26/20 Unknown History fluticasone propionate 50 1 spray INTRANASAL DAILY 09/26/20 Unknown History mcg/actuation nasal spray,suspension gabapentin 300 mg capsule 300 mg PO BID-TID PRN 09/26/20 12/03/20 07:45 History insulin lispro 100 unit/mL 4 unit SUBCUT DIRECTED 09/26/20 Unknown History subcutaneous pen (Humalog KwikPen (U-100) Insulin) naproxen 250 mg tablet 250 mg PO BID PRN 09/26/20 Unknown History semaglutide 1 mg/dose (2 mg/1.5 1 mg SUBCUT QWEEK 09/26/20 Unknown History mL) subcutaneous pen injector (Ozempic) semaglutide 1 mg/dose (4 mg/3 mL) 1 mg SUBCUT QWEEK 09/26/20 Unknown History subcutaneous pen injector (Ozempic) tramadol 50 mg tablet 50 mg PO Q12H PRN 09/26/20 Unknown History Exam Airway Mallampati Class: III (Full neck and aldridge) TM Dist: >3cm Neck ROM: Limited Loose/Missing/Broken Teeth: No Heart: RRR Lungs: CTA Assessment and Plan Assessment Anesthesia Assessment: Anesthesia Plan Discussed Final Anesthetic Review History of Problems with Anesthesia: No NPO: Yes ASA Class: III Final Preanesthetic Review: Meds/Allgs Chart Reviewed, Consent Obtained/Reviewed and Anes Risks/Benef Reviewed Patient Risk: Intermediate Procedure Risk: Low Anesthetic Plan Anesthetic Plan: GA Disposition: Standard PACU
[2020-12-04] VITALS (8 sets, daily range): BP systolic 104–125; BP diastolic 63–74; PULSE 97–110; RESP 16–18; TEMP 36.1–36.5; O2SAT 96–100
--- NOTE | 2020-12-04 08:20 | MHC.SHP ---
Pre-Procedural Eval Section A Date of Service: 12/04/20 Section B Chief Complaint: Subcutaneous mass of neck Allergies: Allergies Allergy/AdvReac Type Severity Reaction Status Date / Time ranitidine [From ZANTAC] Allergy Severe DIFFICULTY Verified 10/28/20 13:33 BREATHING, ITCHING Plan I have reviewed the history and physical and performed a pertinent physical examination on my patient. No changes have occurred unless specified.
[2020-12-04 08:35] LABS: Glucose, Whole Blood 200 mg/dL (60-115)
--- NOTE | 2020-12-04 09:46 | W.PM.OPN ---
Operative Note Operative Note Date of Service: 12/04/20 Narrative: Preop diagnosis: Subcutaneous mass, posterior neck question lipoma Postop diagnosis: The same Procedure: Excision of subcutaneous mass on the posterior neck under anesthesia Surgeon: Mohit Warren MD kindergarten teacher assistant: SOURAV Blackwell The patient is a 45-year-old male, morbidly obese, was referred to the office because of a mass on the posterior neck. This has actually not very well defined but seemed to to be mobile. He was morbidly obese and had very thick subcutaneous fat so as a little difficult to define this well. I therefore told him it would be best to proceed with this excision under anesthesia. I reviewed with him the technique of this procedure, as well as the risks, benefits, and alternatives and he had had given consent. He was brought to the operating room placed in left lateral decubitus position under general anesthesia via endotracheal tube. The area of the mass on the posterior neck was prepped and draped in the usual sterile fashion. This was actually closer to the occipital area of the scalp. Lidocaine 1% was used for local anesthesia. I then made an incision transversely on the skin overlying the mass using a blade 15. And this was carried down through the full-thickness of skin and part of subcutaneous layer using electrocautery. I then was able to palpate and visualize a very fibrotic, mass of subcutaneous fat, which did not have very clear planes from the rest of subcutaneous layer. I therefore had to use a curved Ledesma to dissect this a circumferentially in view of this very fibrotic nature of the mass. Again, the planes were not very well defined. The tissues were soft to dissect but we were eventually able to circumferentially dissect around this mass and this was sent as specimen. The mass measured about 4.5 cm x 3 cm. I then irrigated. I cauterized oozing and bleeding areas within the excision site. Once hemostasis was ensured, proceeded to then close the skin and subcutaneous layer with a single layer of full-thickness nylon 3-0 interrupted sutures alternating with vertical mattress sutures. The area was then infiltrated with Marcaine 0.5% for postop analgesia. Dressings were applied. The patient tolerated procedure well. There were no complication noted. Initial final counts of sponges and instruments were correct. Estimated blood loss was about 30 cc. The patient was then extubated without difficulty and transferred to the recovery room with stable vital signs.
--- NOTE | 2020-12-04 09:52 | P.BOP_ITS ---
Brief Operative Note Date of Service: 12/04/20 Pre-op diagnosis: Subcutaneous mass, question lipoma, posterior neck Post-op diagnosis: same Procedure: Excision of subcutaneous mass posterior neck Surgeon: Mohit Warren MD Anesthesia: GETA Was an Senior Software Development Engineer used for this Procedure?: No Estimated blood loss (mL): 30 Pathology: other (Subcutaneous mass posterior neck) Condition: stable Disposition: PACU
== END 2020-12-04 11:41 | disposition home or self-care (01) ==
PROVIDERS: PCP Family Medicine; Visit Provider Surgery
PROC: (CPT 11426; principal; 2020-12-04 09:10)
DX: D17.0 Benign lipomatous neoplasm of skin and subcutaneous tissue of head, face and neck (principal); E66.01 Morbid (severe) obesity due to excess calories; Z68.42 Body mass index [BMI] 45.0-49.9, adult; G47.33 Obstructive sleep apnea (adult) (pediatric); K21.9 Gastro-esophageal reflux disease without esophagitis; G89.29 Other chronic pain; M54.9 Dorsalgia, unspecified; E11.9 Type 2 diabetes mellitus without complications; Z79.4 Long term (current) use of insulin; Z79.899 Other long term (current) drug therapy; Z88.8 Allergy status to other drugs, medicaments and biological substances; Z86.16 Personal history of COVID-19
CPT/HCPCS: 11426; 82947; 88304; J0330; J0690; J1100; J2250; J2405; J3010

== ENCOUNTER → 2020-12-27 10:24 | Outpatient (BNVA) | payer MEDICAID, SELFPAY | PROVIDERS: PCP Family Medicine; Referring Provider Family Medicine; Visit Provider Surgery | DX: Z48.817 Encounter for surgical aftercare following surgery on the skin and subcutaneous tissue (principal); Z87.2 Personal history of diseases of the skin and subcutaneous tissue | CPT/HCPCS: 99212 ==

== ENCOUNTER → 2021-01-30 09:46 | Outpatient (BNVA) | payer MEDICAID, SELFPAY | PROVIDERS: PCP Family Medicine; Visit Provider Urology | DX: N40.1 Benign prostatic hyperplasia with lower urinary tract symptoms (principal); N13.8 Other obstructive and reflux uropathy; N31.0 Uninhibited neuropathic bladder, not elsewhere classified; E11.69 Type 2 diabetes mellitus with other specified complication; N52.1 Erectile dysfunction due to diseases classified elsewhere | CPT/HCPCS: 99212 ==

== ENCOUNTER 2021-02-28 09:41 | Emergency (ER) | payer MEDICAID, SELFPAY | END 2021-02-28 11:52 | disposition left against medical advice (07) | PROVIDERS: Emergency Provider Emergency Medicine | DX: M54.9 Dorsalgia, unspecified (principal) ==

== ENCOUNTER 2021-03-26 10:30 | Outpatient (REF) | payer MEDICAID, SELFPAY ==
--- NOTE | ~2021-03-26 | US_ITS ---
EXAMINATION: US ABDOMEN LIMITED WITH LIVER ELASTOGRAPHY CLINICAL INFORMATION: Cirrhosis COMPARISON: Previous CT of the abdomen and pelvis August 2020 and ultrasound October 2018 TECHNIQUE: Real-time imaging of the abdominal viscera. Noninvasive ultrasound liver fibrosis assessment is performed using Mila ElastPQ point quantification shear wave elastography (2D-SWE) with a C5-2 MHz transducer. Multiple elastography samples are obtained. FINDINGS: PANCREAS: Not well visualized due to bowel gas. LIVER: The liver appears cirrhotic with heterogeneous echotexture and lobulated contour. It is difficult to exclude a focal liver lesion for example in the left lobe of the liver image 5. There is no intrahepatic or extrahepatic biliary duct dilatation. The right lobe measures 12 cm in length. The left lobe measures 14 cm in length. Portal flow is normal/hepatopedal Shear wave liver elastography median stiffness is 2.1 m/s (reference: normal median stiffness is 1.3 m/s or less). IQR/median stiffness to assess sampling precision is 0.1 (reference: good quality data set is IQR/median stiffness of 0.15 or less). GALLBLADDER: Not well visualized. COMMON BILE DUCT: Normal in caliber measuring 0.3 cm in diameter. RIGHT KIDNEY: Normal. No hydronephrosis. No renal calculi or focal parenchymal lesions. The kidney measures 11.9 cm in maximum dimension. FREE FLUID: None. US/US abdomen mondragon w elastography IMPRESSION: 1. Impression: Cirrhotic-appearing liver. It is difficult to exclude a focal liver lesion. Follow-up MRI with contrast should be considered. Limited visualization of the gallbladder and pancreas. 2. Liver elastography: Adequate liver sampling. Elevated liver stiffness consistent with advanced chronic liver disease. REFERENCE: Society of Radiologists in Ultrasound Liver Stiffness Thresholds (2020): LIVER STIFFNESS THRESHOLDS: *Liver Stiffness equal or less than 1.3 m/s: High probability of being normal. *Liver Stiffness less than 1.7 m/s: In the absence of other known clinical signs, rules out compensated advanced chronic liver disease. *Liver Stiffness 1.7-2.1 m/s: Suggestive of compensated advanced chronic liver disease but need further test for confirmation. *Liver Stiffness over 2.1 m/s: Rules in compensated advanced chronic liver disease. *Liver Stiffness over 2.4 m/s: Suggestive of clinically significant portal hypertension. QUALITY OF DATA SET: *IQR/Median value equal or less than 0.15 implies a quality data set. *IQR/Median value over 0.15 implies a poor quality data set. SIGNIFICANT CHANGE FROM PRIOR EXAM: Significant change if liver stiffness measurement is 10% or greater from prior exam. OTHER CONSIDERATIONS: The stage of liver fibrosis may be overestimated in the setting of acute hepatitis, liver inflammation, elevated liver function tests, hepatic vascular congestion, obstructive cholestasis, non-fasting state, and infiltrative diseases such as amyloidosis and lymphoma. In some patients with NAFLD, the liver stiffness thresholds for compensated advanced chronic liver disease may be lower. In causes other than viral hepatitis and NAFLD, liver stiffness thresholds are not well established.
== END 2021-03-26 10:31 | disposition home or self-care (01) ==
LOC: HO.US 10:30
PROVIDERS: PCP Family Medicine; Visit Provider Internal Medicine Gastroenterology
DX: K74.69 Other cirrhosis of liver (principal)
CPT/HCPCS: 76705; 76981

== ENCOUNTER 2021-05-03 08:24 | Outpatient (AMB) | payer MEDICAID, SELFPAY ==
--- NOTE | 2021-05-03 08:25 | A.OFFVIS_ITS ---
Intake Intake Visit Reasons: 3 mth follow up Intake Note: Patient is present for follow up Lead Generation Marketing Manager Required: Yes Lead Generation Marketing Manager Name: navin tim Information Interpreted: non-clinical & clinical Accompanied by: Self / Same As Patient Allergies ranitidine [From ZANTAC] Allergy (Severe, Verified 03/23/23 11:32) DIFFICULTY BREATHING, ITCHING HPI HPI Comments History of Present Illness Details Christian is a pleasant male. He is a patient of Dr. Cassidy. He seen for the following urologic conditions - erectile dysfunction - BPH Khmer translation provided by qualified medical clerical assistant add on demand viagra to 10mg tadalafil Erectile dysfunction - Diabetes insulin dependent Previously on intermittent sildenafil Some positive effect with 5 mg daily Cialis Erections not quite strong enough Will trial 10 mg daily BPH Has been on Flomax with adequate response Still feeling he has hesitancy with urination Had seen blood in his urine needs ultrasound Family history prostate cancer PSA 11/05 0.3 May review at periodic intervals PFSH Medical History Morbid obesity Gross hematuria Lipoma of neck On beta alma at home History of tachycardia Subcutaneous mass of neck Obesity Hx of gastritis History of anxiety History of depression COVID-19 Colitis Gallstones Asthma HTN (hypertension) Fatty liver Dysuria Arthritis Diabetes GERD (gastroesophageal reflux disease) OLIVER on CPAP Chronic back pain Cirrhosis Surgical History Hx of elbow surgery S/P cubital tunnel release History of esophagogastroduodenoscopy (EGD) History of left knee surgery Family History Father No problems noted. Mother HTN (hypertension) Sister Type II diabetes mellitus Social History Are you a primary clinical care manager to a significant other at home: No Do you presently have visiting nurse or other home services: No Alcohol intake: current Alcohol intake frequency: holidays/special occasions only Alcohol type: beer Patient Tobacco Use Status: Current someday Tobacco user Tobacco use type: Cigarette Substance Use Type: Marijuana Advance Directives: No Advance Directives Information Provided: No service: No Current occupational status: unemployed and disabled Review of Systems Const Denies chills and Denies fever(s) Card Reports no additional complaints and Denies syncope Resp Denies cough GI Denies abdominal pain and Denies heartburn Reports as per HPI and Denies change in libido Neuro Denies syncope Psych Denies change in libido Endo Denies change in libido Physical Exam Const General: cooperative, healthy appearing, comfortable and no acute distress Orientation/consciousness: patient oriented x3 HENMT Face and sinus: Yes normal facial exam Mouth: moist mucous membranes Neck Neck: Yes normal visual inspection, Yes full ROM and Yes trachea midline Chest Chest palpation & inspection: normal inspection of the chest Resp Effort & Inspection: normal respiratory effort, able to speak in complete sentences and no respiratory distress GI Inspection: Yes normal to inspection Back/Spine/Pelvis Cervical Spine: normal cervical lordosis Thoracic/Lumbar Spine: thoracic and lumbar spine normal to inspection Skin General skin exam: no rashes or lesions noted Neuro General: patient oriented x3, gait normal, tone normal and moves all extremities Extrem General: Yes normal to inspection and Yes capillary refill normal Assessment & Plan Assessment & Plan (1) Erectile dysfunction associated with type 2 diabetes mellitus: Code(s): E11.69 - Type 2 diabetes mellitus with other specified complication; N52.1 - Erectile dysfunction due to diseases classified elsewhere Plan Three-month follow-up telephone Patient Instructions: Imaging studies, laboratory and physical exam results were discussed and reviewed in detail. No major barriers to patient understanding were identified. An opportunity to ask questions regarding the treatment plan was provided. All questions were answered. The patient expressed understanding and agreement with the above treatment plan. The patient is aware they should contact our office by phone for worsening of their current condition or the appearance of new urologic symptoms. Compliance is encouraged with any medications and followup testing that is ordered. It is a privilege to participate in the urologic care of your patient. If you have any questions or concerns regarding treatment for the above conditions, or other urologic issues, please do not hesitate to contact me. The office telephone contact is [phone]. This note is constructed using voice recognition software. While every effort has been made to ensure accuracy green chain operator errors may have been included. Yours sincerely, Dr Dao Keith MD, [facility] - Urology Providers of Expert, Compassionate Care for the Genitourinary System Telehealth Telehealth Location of provider rendering services: practice address Location of patient: address on file Patient Identification confirmed using: Name, : Yes Telehealth method: voice only Patient verbally consented to treatment: Yes Patient verbally consented to billing insurance company: Yes Patient informed of any privacy concerns related to visit: Yes Coding Level of Care Code Est Pt Level 3 (39962) Diagnoses Erectile dysfunction associated with type 2 diabetes mellitus E11.69; N52.1
== END 2021-05-03 10:03 | disposition home or self-care (01) ==
LOC: HO.HUSH 08:24
PROVIDERS: PCP Family Medicine; Visit Provider Urology
DX: E11.69 Type 2 diabetes mellitus with other specified complication (principal); N52.1 Erectile dysfunction due to diseases classified elsewhere
CPT/HCPCS: 99499

== ENCOUNTER → 2021-05-03 08:24 | Outpatient (BNVA) | payer MEDICAID, SELFPAY | PROVIDERS: PCP Family Medicine; Visit Provider Urology | DX: Z13.89 Encounter for screening for other disorder (principal) ==

== ENCOUNTER 2021-05-08 14:01 | Outpatient (REF) | payer MEDICAID, SELFPAY ==
[2021-05-08 14:12] LABS: MANUAL DIFF FLAG NO
[2021-05-08 14:23] LABS: Basophils Percent Auto 0.4 % (0-2); Eosinophils Absolute Auto 0.1 X10*3/uL (0.0-0.4); Eosinophils Percent Auto 1.6 % (0-4); Hematocrit 43.3 % (42.0-52.0); Hemoglobin 14.4 g/dl (14.0-18.0); Imm Gran Abs Auto 0.02 X10*3/uL (0.00-0.03); Imm Gran Pct Auto 0.3 % (0.0-0.4); Lymphocytes Absolute Auto 2.1 X10*3/uL (1.2-4.9); Mean Corpuscular HGB Conc 33.3 g/dl (31.0-36.0); Mean Corpuscular Hemoglobin 33.6 pg (27.0-33.0); Mean Corpuscular Volume 101.2 fL (80.0-98.0); Mean Platelet Volume 10.3 fL (9.4-12.4); Monocytes Absolute Auto 0.7 X10*3/uL (0.1-1.2); Monocytes Percent Auto 9.5 % (2-11); Neutrophils Absolute Auto 4.5 x10*3/uL (2.0-8.3); Neutrophils Percent Auto 60.2 % (45-73); Platelet Count 160 X10*3/uL (160-400); Red Blood Count 4.28 X10*6/uL (4.60-5.80); Red Cell Distribution Width 14.1 % (11.0-16.0); White Blood Count 7.5 X10*3/uL (4.8-10.8)
[2021-05-08 15:05] LABS: Alanine Aminotransferase 62 U/L (0-40); Albumin Level 3.6 g/dL (3.5-5.0); Alkaline Phosphatase 119 U/L (39-117); Anion Gap 11 (12-20); Aspartate Amino Transferase 60 U/L (5-37); Bilirubin Total 0.6 mg/dL (0.0-1.0); Blood Urea Nitrogen 10 mg/dL (9-16); Calcium 9.3 mg/dL (8.4-10.2); Carbon Dioxide 29 mmol/L (22-29); Chloride 103 mmol/L (96-108); Estimated Glomerular Filt Rate > 60; Glucose Random 171 mg/dL (60-115); Potassium 3.8 mmol/L (3.3-5.1); Sodium 139 mmol/L (135-145); Total Protein 7.6 g/dL (6.5-8.0)
== END 2021-05-08 14:02 | disposition home or self-care (01) ==
LOC: HO.LAB 14:01
PROVIDERS: PCP Family Medicine; Visit Provider Internal Medicine Gastroenterology
DX: K76.9 Liver disease, unspecified (principal); K75.81 Nonalcoholic steatohepatitis (NASH)
CPT/HCPCS: 36415; 80053; 85025

== ENCOUNTER 2021-05-09 08:59 | Outpatient (REF) | payer MEDICAID, SELFPAY ==
--- NOTE | ~2021-05-09 | MR_ITS ---
EXAMINATION: MR ABDOMEN WITHOUT AND WITH CONTRAST CLINICAL INFORMATION: Liver disease COMPARISON: Previous CT of the abdomen and pelvis February 2020 and abdominal ultrasound March 2021. TECHNIQUE: MR abdomen was performed without and with use of 10 mL intravenous Gadavist contrast. Postcontrast images are performed in multiphase dynamic sequences. Imaging was performed in 3 planes. FINDINGS: LUNG BASES: The visualized lung bases are unremarkable. LIVER, GALLBLADDER, AND BILIARY TREE: The liver appears cirrhotic. Liver is very heterogeneous in signal and demonstrates heterogeneous enhancement suggestive of significant fibrosis. No focal liver lesion is seen. There is no biliary duct dilatation. The gallbladder is normal. The hepatic veins and portal veins are patent. There is a small recannulized paraumbilical vein and upper abdominal varices. There is no ascites. PANCREAS: Unremarkable. SPLEEN: The spleen is prominent measuring 18 cm in AP dimension. ADRENAL GLANDS: Normal. KIDNEYS AND URETERS: There are bilateral renal cysts. The kidneys are otherwise unremarkable. GASTROINTESTINAL TRACT: No bowel obstruction. No ascites or fluid collection. ABDOMINAL WALL: There is a small umbilical hernia containing fat. LYMPH NODES: No lymphadenopathy. VASCULAR: Unremarkable. OSSEOUS STRUCTURES: Marrow signal normal. There are degenerative changes of the spine. MR/MR abdomen wo/w con IMPRESSION: Cirrhotic-appearing liver. The liver is very heterogeneous in signal and demonstrates heterogeneous enhancement suggestive of a significant fibrotic change. No focal liver lesion seen. Patent hepatic and portal veins. Small recannulized paraumbilical vein and upper abdominal varices. Prominent spleen. No ascites. Bilateral renal cysts.
== END 2021-05-09 09:00 | disposition home or self-care (01) ==
LOC: HO.MRI 08:59
PROVIDERS: Visit Provider Internal Medicine Gastroenterology
DX: K76.9 Liver disease, unspecified (principal)
CPT/HCPCS: 74183; A9585

== ENCOUNTER → 2021-06-10 08:58 | Outpatient (REF) | payer MEDICAID, SELFPAY | LOC: HO.SL 08:58 | PROVIDERS: PCP Family Medicine; Visit Provider Family Medicine | DX: G47.33 Obstructive sleep apnea (adult) (pediatric) (principal) | CPT/HCPCS: 95806 ==

== ENCOUNTER 2021-07-27 10:40 | Observation (INO) | payer MEDICAID, SELFPAY ==
--- NOTE | ~2021-07-27 | XR_ITS ---
EXAMINATION: XR CHEST CLINICAL INFORMATION: Chest pain and shortness of breath COMPARISON: Previous chest x-ray December 2019 TECHNIQUE: Frontal view of the chest was obtained. FINDINGS: The cardiac and mediastinal contours are stable. There is subsegmental atelectasis at the lung bases. The lungs are otherwise clear. There is no pleural effusion or pneumothorax. Bony structures are unremarkable. XR/XR chest 1V IMPRESSION: Subsegmental atelectasis at the lung bases.
--- NOTE | ~2021-07-27 | CT_ITS ---
EXAMINATION: CT ANGIOGRAM OF THE CHEST WITH AND WITHOUT CONTRAST (CT PULMONARY ANGIOGRAM FOR PE) CLINICAL INFORMATION: Reason for Exam r/o PE. Syncope. SOB. Elevated D-dimer COMPARISON: Previous chest CT May 2020 and chest x-ray from earlier the same day TECHNIQUE: Prior to contrast administration, noncontrast localization images were obtained. Subsequently, multidetector volumetric imaging was performed from the thoracic inlet to below the diaphragms following the administration of 75 mL Omnipaque 350 intravenous contrast. No contrast reaction reported Sagittal, coronal, and MIP oblique sagittal reformatted images were obtained on the CT workstation, uploaded to PACS, and reviewed. This CT examination was performed using dose optimization techniques as appropriate, variously including the following: *Automated exposure control *Adjustment of mA and/or kV according to patient size (this includes techniques or standardized protocols for targeted exams where dose is matched to indication/reason for exam; i.e. extremities or head) *Use of iterative reconstruction technique Total exam dose-length product 778 mGy-cm FINDINGS: QUALITY OF STUDY/CONTRAST BOLUS: Satisfactory. PULMONARY ARTERIES: No central or segmental pulmonary emboli. THORACIC AORTA: No aneurysm or dissection. LUNG: No focal consolidation, nodules or masses. PLEURA: No pleural effusion or pneumothorax. MEDIASTINUM: Normal heart size. No pericardial effusion. No hilar or mediastinal lymphadenopathy. No evidence of septal bowing or right heart strain. CHEST WALL/AXILLA: No axillary or internal mammary lymphadenopathy. OSSEOUS STRUCTURES: No acute or suspicious osseous abnormality. Degenerative changes of the spine. UPPER ABDOMEN: There are mild cirrhotic changes of the liver. There is a small low-attenuation area seen in the lateral segment of the left lobe of the liver. This is best appreciated on coronal reconstructed image 23 series 11 measuring 6 to 7 mm. There is a second smaller 5 mm low-attenuation lesion high in the dome of the right lobe of the liver axial image 42 series 8 and coronal reconstructed image 16. There are gallstones. There is a small cyst in the upper pole of the right kidney. There may be mild diverticulosis of the colon. No reflux of contrast into the hepatic veins to suggest elevated right heart pressures. CT/CT angio chest PE protocol IMPRESSION: No evidence of pulmonary embolism. Cirrhotic-appearing liver. Small liver lesions. Follow-up elective MR of the liver with contrast recommended. Gallstones. VTE: negative
--- NOTE | ~2021-07-27 | CT_ITS ---
EXAMINATION: CT HEAD WITHOUT CONTRAST CLINICAL INFORMATION: Headache, lightheadedness and syncope COMPARISON: None TECHNIQUE: Contiguous axial imaging was performed from the skull base to vertex without intravenous administration of contrast. This CT examination was performed using dose optimization techniques as appropriate, variously including the following: *Automated exposure control *Adjustment of mA and/or kV according to patient size (this includes techniques or standardized protocols for targeted exams where dose is matched to indication/reason for exam; i.e. extremities or head) *Use of iterative reconstruction technique DLP: 797 mGy-cm FINDINGS: There is no evidence of acute intracranial hemorrhage or territorial infarction. No abnormal mass effect or midline shift is seen. Posadas to white matter differentiation is well preserved. No extra-axial fluid collections are identified. The ventricles are normal in size. There is no abnormal attenuation within the brain parenchyma. The osseous structures and soft tissues are normal. There is a small polyp or cyst in the left maxillary sinus. The mastoid air cells and visualized portions of the paranasal sinuses are otherwise clear.. CT/CT head/brain wo con IMPRESSION: No acute intracranial findings.
[2021-07-27 10:52] VITALS: BP 100/58; BP 89/68; PULSE 86; RESP 18; TEMP 36.7; O2SAT 100; BMI 42.8
[2021-07-27 10:57] LABS: Glucose, Whole Blood 246 mg/dL (60-115)
--- NOTE | 2021-07-27 11:05 | ECG_ITS ---
Test Reason : SYNCOPE Blood Pressure : / mmHG Vent. Rate : 089 BPM Atrial Rate : 089 BPM P-R Int : 164 ms QRS Dur : 082 ms QT Int : 406 ms P-R-T Axes : 040 015 007 degrees QTc Int : 493 ms Normal sinus rhythm Prolonged QT Abnormal ECG When compared to the previous EKG of 01 september 2013, QT has shortened. Referred By: Natalie Soliman Electronically Signed By:TEA PERSAUD
--- NOTE | 2021-07-27 11:13 | ED_ITS ---
HPI - General Adult General Chief complaint: Dizziness Stated complaint: hypotensive Time Seen by Provider: 07/27/21 11:05 Source: patient and EMS Mode of arrival: EMS History of Present Illness HPI narrative: 46-year-old male with a past medical history of arthritis, asthma, cirrhosis, colitis, GERD, obesity, OLIVER on CPAP, HTN, presenting to ED via EMS s/p syncopal episode [employer]. Patient reports woke up feeling lightheaded/generalized fa tigue/weakness and syncopized at home, denies head trauma. Admits to headache beginning 2 days ago, not maximal at onset. Also reports chest pain and shortness of breath. Denies vision change/loss, abdominal pain, nausea/vomiting, numbness, tingling. Denies taking anticoagulation Onset (ago): hour(s) Related Data Home Medications Medication Instructions Recorded Confirmed amlodipine 5 mg tablet 5 mg PO DAILY 11/15/19 07/27/21 chlorthalidone 25 mg tablet 25 mg PO DAILY 11/15/19 07/27/21 cholecalciferol (vitamin D3) 25 25 mcg PO DAILY 11/15/19 07/27/21 mcg (1,000 unit) tablet (Vitamin D3) dexlansoprazole 60 mg 60 mg PO DAILY 11/15/19 07/27/21 capsule,biphase delayed release (Dexilant) lancets 33 gauge (TRUEplus Lancets) #100 ea 11/15/19 12/27/20 lisinopril 40 mg tablet 40 mg PO DAILY 11/15/19 07/27/21 metoprolol succinate 50 mg 50 mg PO DAILY 11/15/19 07/27/21 tablet,extended release 24 hr pen needle, diabetic 32 gauge x #50 ea 11/15/19 12/27/20/32 (Unifine Pentips) metoclopramide HCl 5 mg tablet 1 tab PO BEDTIME 08/13/20 07/27/21 montelukast 10 mg tablet 1 tab PO BEDTIME 08/13/20 07/27/21 insulin lispro 100 unit/mL 10 unit subcut DIRECTED 09/26/20 12/27/20 subcutaneous pen (Humalog KwikPen (U-100) Insulin) blood sugar diagnostic (FreeStyle #10 ea 05/03/21 Lite Strips) insulin glargine U-300 conc 300 20 unit subcut DAILY 05/03/21 07/27/21 unit/mL (1.5 mL) subcutaneous pen (Toujeo SoloStar U-300 Insulin) Previous Rx's Medication Instructions Recorded acetaminophen 500 mg tablet 500 mg PO Q6H PRN pain or fever 12/24/19 (Tylenol Extra Strength) #20 tabs tamsulosin 0.4 mg capsule 0.4 mg PO DAILY 90 days #90 caps 02/25/21 Allergies Allergy/AdvReac Type Severity Reaction Status Date / Time ranitidine [From ZANTAC] Allergy Severe DIFFICULTY Verified 05/03/21 08:25 BREATHING, ITCHING Review of Systems Review of Systems: Constitutional: No Fever, No Chills, No Fatigue, No Malaise ENT/Mouth: No Ear Pain, No sore throat, No Rhinorrhea, No Swallowing Difficulty Eyes: No Eye Pain, No Swelling, No Redness, No Vision Changes Cardiovascular: + Chest Pain, + SOB, No Dyspnea on Exertion, No Orthopnea, +chronic LL Edema, No Palpitations Respiratory: No Cough, No Sputum, No Smoke Exposure, No Dyspnea Gastrointestinal: No Nausea, No Vomiting, No Diarrhea, No Constipation, No Abdominal pain Genitourinary: No Dysuria, No Urinary Frequency, No Hematuria, No Urinary Incontinence/retention, No Urgency, No Flank Pain Musculoskeletal: No joint pain, No Myalgias, No Joint Swelling Skin: No Skin Lesions, No rash Neuro: + Weakness, No Numbness, No Paresthesias, + Loss of Consciousness, + lightheaded, + syncope, + Headache Yes all other systems are reviewed and are negative Neurologic: Denies Abnormal speech present [facility] Past Medical History Attestation statement: The following information was validated with the patient. Medical History Arthritis Asthma Chronic back pain Cirrhosis Colitis COVID-19 Diabetes Dysuria Fatty liver GERD (gastroesophageal reflux disease) History of anxiety History of depression History of tachycardia HTN (hypertension) Hx of gastritis Lipoma of neck Obesity On beta alma at home OLIVER on CPAP Subcutaneous mass of neck Surgical History History of esophagogastroduodenoscopy (EGD) History of left knee surgery Hx of elbow surgery S/P cubital tunnel release Family History Family History Father No problems noted. Mother HTN (hypertension) Sister Type II diabetes mellitus Social History Social History Are you a primary primary care coordinator to a significant other at home: No Do you presently have visiting nurse or other home services: No Alcohol intake: current Alcohol intake frequency: a few times a week Alcohol type: beer Patient Tobacco Use Status: Former Tobacco user Tobacco use type: Cigarette Advance Directives: No Advance Directives Information Provided: No Physical Exam ED Vital Signs: Vital Signs - 24 hr 07/27/21 10:52 07/27/21 12:20 07/27/21 14:06 Temperature 98.1 F 98.0 F Pulse Rate 86 85 89 Respiratory Rate 18 18 12 Blood Pressure 100/58 L 105/57 L 98/53 L Pulse Oximetry 100 100 98 Oxygen Delivery Method Room Air Room Air Room Air 07/27/21 14:06 07/27/21 14:06 07/27/21 14:09 Temperature Pulse Rate 89 96 107 H Respiratory Rate Blood Pressure 98/53 L 105/62 104/61 Pulse Oximetry Oxygen Delivery Method BMI result Body Mass Index 42.8 Const General: cooperative, healthy appearing and no acute distress Orientation/consciousness: patient oriented x3 Limitations: no limitations HENMT Head: Yes normal to inspection and Yes atraumatic Ears: hearing grossly normal bilaterally General nose exam: Normal external nose present Face and sinus: Yes normal facial exam Mouth: Normal oral and palatal mucosa present Throat: Yes posterior oropharynx normal and Yes uvula midline Eyes General: appearance normal, both eyes and all related structures Pupils: Equal, round and reactive pupils present EOM: EOMs intact bilaterally Neck Neck: Yes normal visual inspection, Yes no meningeal signs, Yes supple and No anterior neck swelling Resp Effort & Inspection: normal respiratory effort and no respiratory distress Auscultation: clear to auscultation bilaterally, no rales, no rhonchi and no wheezes Cardio Rate: regular rate Heart sounds: S1 normal heart sound present and S2 normal heart sound present GI Inspection: Yes normal to inspection Palpation (GI): Soft to palpation, nontender, no guarding and not rigid Skin Rashes: no rashes Wounds: no wounds Neuro General: patient oriented x3, gait normal, tone normal, moves all extremities, no meningeal signs, no focal motor deficits and CN's II-XI intact bilaterally Cranial nerves: Yes CN's II-XII intact bilaterally, Yes Equal, round and reactive pupils present and Yes Bilaterally intact EOM present Cognition (Neuro): normal cognition Speech: No Abnormal speech present Gait exam (Neuro): Normal gait present Motor exam (neuro): 5/5 motor strength present throughout, Pronator motor function not present and no tremor noted Coordination: [id number] test normal Romberg Test: Negative Extrem Other: +LLE pitting edema (chronic per patient from prior orthopedic surgery) Course Course Course Narrative: -1253--difficulty obtaining labs from a patient, phlebotomy called. > EKG with noted prolonged QT, 2g of empiric IV magnesium ordered XR chest 1V IMPRESSION: Subsegmental atelectasis at the lung bases. CT head/brain wo con IMPRESSION: No acute intracranial findings. -1412--D-dimer elevated to 407 > will obtain CTA to rule out PE. Labs otherwise unremarkable/at patient's baseline -initial troponin negative > will obtain 3 hour repeat -tox screen positive for cocaine 1636--CT angio chest PE protocol IMPRESSION: No evidence of pulmonary embolism. Cirrhotic-appearing liver. Small liver lesions. Follow-up elective MR of the liver with contrast recommended. Gallstones. ? VTE: negative >> plan to admit for further management Medical Decision Making MDM Narrative Medical decision making narrative: 46-year-old male with a past medical history of arthritis, asthma, cirrhosis, colitis, GERD, obesity, OLIVER on CPAP, HTN, presenting to ED via EMS s/p syncopal episode [employer]. On exam hypotensive, NAD, lungs CTA, abdomen soft/nontender, no focal neuro deficits. Concern for ACS vs ?PE vs dehydration/metabolic abnormalities. R/o ICH/pathology. Plan: EKG, labs, UA, CXR, head CT, IVF, orthostatics, re-evaluate Medical Records Medical records reviewed: Yes I reviewed the patient's medical records. Lab Data Lab results reviewed: Yes I reviewed the patient's lab results. Result diagrams: 07/27/21 13:03 07/27/21 13:03 Labs: Lab Results 07/27/21 07/27/21 07/27/21 Range/Units 10:52 12:36 13:03 WBC 7.6 (4.8-10.8) X10*3/uL RBC 4.10 L (4.60-5.80) X10*6/uL Hgb 13.9 L (14.0-18.0) g/dl Hct 40.3 L (42.0-52.0) % MCV 98.3 H (80.0-98.0) fL MCH 33.9 H (27.0-33.0) pg MCHC 34.5 (31.0-36.0) g/dl RDW 14.0 (11.0-16.0) % Plt Count 123 L (160-400) X10*3/uL MPV 9.7 (9.4-12.4) fL Immature Gran % (Auto) 0.1 (0.0-0.4) % Neut % (Auto) 69.3 (45-73) % Lymph % (Auto) 19.2 L (20-40) % [place] % (Auto) 10.9 (2-11) % Eos % (Auto) 0.4 (0-4) % Baso % (Auto) 0.1 (0-2) % Lymph # (Auto) 1.5 (1.2-4.9) X10*3/uL [place] # (Auto) 0.8 (0.1-1.2) X10*3/uL Eos # (Auto) 0.0 (0.0-0.4) X10*3/uL Baso # (Auto) 0.0 (0.0-0.2) X10*3/uL Abs Immat Gran (auto) 0.01 (0.00-0.03) X10*3/uL Absolute Neuts (auto) 5.3 (2.0-8.3) x10*3/uL Absolute Nucleated RBC 0.000 (0.0-0.012) X10*3/uL Nucleated RBC % (auto) 0.0 (0.0-0.2) /100WBC PT (9.9-13.0) SEC INR (0.9-1.1) D-Dimer High Sensitivty NG/ML Sodium (135-145) mmol/L Potassium (3.3-5.1) mmol/L Chloride (96-108) mmol/L Carbon Dioxide (22-29) mmol/L Anion Gap (12-20) BUN (9-16) mg/dL Creatinine (0.5-1.4) mg/dL Estim Creat Clear Calc Estimated GFR POC Glucose 246 H (60-115) mg/dL Random Glucose (60-115) mg/dL Calcium (8.4-10.2) mg/dL Magnesium (1.6-2.6) mg/dL Total Bilirubin (0.0-1.0) mg/dL Direct Bilirubin (0.0-0.5) mg/dL AST (5-37) U/L ALT (0-40) U/L Alkaline Phosphatase (39-117) U/L Troponin I High Sens (<3.5-35.0) ng/L B-Natriuretic Peptide (<100) pg/mL Total Protein (6.5-8.0) g/dL Albumin (3.5-5.0) g/dL Urine Color Urine Appearance Urine pH (5.0-8.0) Ur Specific [place] (1.005-1.025) Urine Protein (NEG-TRACE) MG/DL Urine Glucose (UA) (NEG) MG/DL Urine Ketones (NEG) MG/DL Urine Blood (NEG) Urine Nitrite (NEG) Ur Leukocyte Esterase (NEG) Urine RBC (0) /HPF Urine WBC (0-4) /HPF Ur Squamous Epith Cells /LPF Urine Bacteria /LPF Urine Opiates Screen (Not Detect) Urine Fentanyl Screen (Not Detect) Ur Barbiturates Screen (Not Detect) Ur Phencyclidine Scrn (Not Detect) Ur Amphetamines Screen (Not Detect) U Benzodiazepines Scrn (Not Detect) Urine Cocaine Screen (Not Detect) U Marijuana (THC) Screen (Not Detect) COVID-19 (SEDA) Negative (Negative) COVID-19 Clin Com See Note 07/27/21 07/27/21 07/27/21 Range/Units 13:03 13:03 13:03 WBC (4.8-10.8) X10*3/uL RBC (4.60-5.80) X10*6/uL Hgb (14.0-18.0) g/dl Hct (42.0-52.0) % MCV (80.0-98.0) fL MCH (27.0-33.0) pg MCHC (31.0-36.0) g/dl RDW (11.0-16.0) % Plt Count (160-400) X10*3/uL MPV (9.4-12.4) fL Immature Gran % (Auto) (0.0-0.4) % Neut % (Auto) (45-73) % Lymph % (Auto) (20-40) % [place] % (Auto) (2-11) % Eos % (Auto) (0-4) % Baso % (Auto) (0-2) % Lymph # (Auto) (1.2-4.9) X10*3/uL [place] # (Auto) (0.1-1.2) X10*3/uL Eos # (Auto) (0.0-0.4) X10*3/uL Baso # (Auto) (0.0-0.2) X10*3/uL Abs Immat Gran (auto) (0.00-0.03) X10*3/uL Absolute Neuts (auto) (2.0-8.3) x10*3/uL Absolute Nucleated RBC (0.0-0.012) X10*3/uL Nucleated RBC % (auto) (0.0-0.2) /100WBC PT 13.2 H (9.9-13.0) SEC INR 1.2 H (0.9-1.1) D-Dimer High Sensitivty NG/ML Sodium 136 (135-145) mmol/L Potassium 3.8 (3.3-5.1) mmol/L Chloride 101 (96-108) mmol/L Carbon Dioxide 26 (22-29) mmol/L Anion Gap 13 (12-20) BUN 9 (9-16) mg/dL Creatinine 0.80 (0.5-1.4) mg/dL Estim Creat Clear Calc 156.7 Estimated GFR > 60 POC Glucose (60-115) mg/dL Random Glucose 234 H D (60-115) mg/dL Calcium 8.5 D (8.4-10.2) mg/dL Magnesium 1.8 (1.6-2.6) mg/dL Total Bilirubin 0.9 (0.0-1.0) mg/dL Direct Bilirubin 0.4 (0.0-0.5) mg/dL AST 60 H (5-37) U/L ALT 46 H (0-40) U/L Alkaline Phosphatase 96 (39-117) U/L Troponin I High Sens < 3.5 (<3.5-35.0) ng/L B-Natriuretic Peptide (<100) pg/mL Total Protein 7.3 (6.5-8.0) g/dL Albumin 3.4 L (3.5-5.0) g/dL Urine Color Urine Appearance Urine pH (5.0-8.0) Ur Specific [place] (1.005-1.025) Urine Protein (NEG-TRACE) MG/DL Urine Glucose (UA) (NEG) MG/DL Urine Ketones (NEG) MG/DL Urine Blood (NEG) Urine Nitrite (NEG) Ur Leukocyte Esterase (NEG) Urine RBC (0) /HPF Urine WBC (0-4) /HPF Ur Squamous Epith Cells /LPF Urine Bacteria /LPF Urine Opiates Screen (Not Detect) Urine Fentanyl Screen (Not Detect) Ur Barbiturates Screen (Not Detect) Ur Phencyclidine Scrn (Not Detect) Ur Amphetamines Screen (Not Detect) U Benzodiazepines Scrn (Not Detect) Urine Cocaine Screen (Not Detect) U Marijuana (THC) Screen (Not Detect) COVID-19 (SEDA) (Negative) COVID-19 Clin Com 07/27/21 07/27/21 07/27/21 Range/Units 13:03 13:04 13:35 WBC (4.8-10.8) X10*3/uL RBC (4.60-5.80) X10*6/uL Hgb (14.0-18.0) g/dl Hct (42.0-52.0) % MCV (80.0-98.0) fL MCH (27.0-33.0) pg MCHC (31.0-36.0) g/dl RDW (11.0-16.0) % Plt Count (160-400) X10*3/uL MPV (9.4-12.4) fL Immature Gran % (Auto) (0.0-0.4) % Neut % (Auto) (45-73) % Lymph % (Auto) (20-40) % [place] % (Auto) (2-11) % Eos % (Auto) (0-4) % Baso % (Auto) (0-2) % Lymph # (Auto) (1.2-4.9) X10*3/uL [place] # (Auto) (0.1-1.2) X10*3/uL Eos # (Auto) (0.0-0.4) X10*3/uL Baso # (Auto) (0.0-0.2) X10*3/uL Abs Immat Gran (auto) (0.00-0.03) X10*3/uL Absolute Neuts (auto) (2.0-8.3) x10*3/uL Absolute Nucleated RBC (0.0-0.012) X10*3/uL Nucleated RBC % (auto) (0.0-0.2) /100WBC PT (9.9-13.0) SEC INR (0.9-1.1) D-Dimer High Sensitivty 407 NG/ML Sodium (135-145) mmol/L Potassium (3.3-5.1) mmol/L Chloride (96-108) mmol/L Carbon Dioxide (22-29) mmol/L Anion Gap (12-20) BUN (9-16) mg/dL Creatinine (0.5-1.4) mg/dL Estim Creat Clear Calc Estimated GFR POC Glucose (60-115) mg/dL Random Glucose (60-115) mg/dL Calcium (8.4-10.2) mg/dL Magnesium (1.6-2.6) mg/dL Total Bilirubin (0.0-1.0) mg/dL Direct Bilirubin (0.0-0.5) mg/dL AST (5-37) U/L ALT (0-40) U/L Alkaline Phosphatase (39-117) U/L Troponin I High Sens (<3.5-35.0) ng/L B-Natriuretic Peptide < 10 (<100) pg/mL Total Protein (6.5-8.0) g/dL Albumin (3.5-5.0) g/dL Urine Color YELLOW Urine Appearance CLEAR Urine pH 7.0 (5.0-8.0) Ur Specific [place] 1.010 (1.005-1.025) Urine Protein 1+ H (NEG-TRACE) MG/DL Urine Glucose (UA) 250 H (NEG) MG/DL Urine Ketones NEG (NEG) MG/DL Urine Blood NEG (NEG) Urine Nitrite NEG (NEG) Ur Leukocyte Esterase NEG (NEG) Urine RBC 0-2 (0) /HPF Urine WBC 0-2 (0-4) /HPF Ur Squamous Epith Cells 1+ /LPF Urine Bacteria NONE /LPF Urine Opiates Screen (Not Detect) Urine Fentanyl Screen (Not Detect) Ur Barbiturates Screen (Not Detect) Ur Phencyclidine Scrn (Not Detect) Ur Amphetamines Screen (Not Detect) U Benzodiazepines Scrn (Not Detect) Urine Cocaine Screen (Not Detect) U Marijuana (THC) Screen (Not Detect) COVID-19 (SEDA) (Negative) COVID-19 Clin Com 07/27/21 07/27/21 Range/Units 13:35 16:33 WBC (4.8-10.8) X10*3/uL RBC (4.60-5.80) X10*6/uL Hgb (14.0-18.0) g/dl Hct (42.0-52.0) % MCV (80.0-98.0) fL MCH (27.0-33.0) pg MCHC (31.0-36.0) g/dl RDW (11.0-16.0) % Plt Count (160-400) X10*3/uL MPV (9.4-12.4) fL Immature Gran % (Auto) (0.0-0.4) % Neut % (Auto) (45-73) % Lymph % (Auto) (20-40) % [place] % (Auto) (2-11) % Eos % (Auto) (0-4) % Baso % (Auto) (0-2) % Lymph # (Auto) (1.2-4.9) X10*3/uL [place] # (Auto) (0.1-1.2) X10*3/uL Eos # (Auto) (0.0-0.4) X10*3/uL Baso # (Auto) (0.0-0.2) X10*3/uL Abs Immat Gran (auto) (0.00-0.03) X10*3/uL Absolute Neuts (auto) (2.0-8.3) x10*3/uL Absolute Nucleated RBC (0.0-0.012) X10*3/uL Nucleated RBC % (auto) (0.0-0.2) /100WBC PT (9.9-13.0) SEC INR (0.9-1.1) D-Dimer High Sensitivty NG/ML Sodium (135-145) mmol/L Potassium (3.3-5.1) mmol/L Chloride (96-108) mmol/L Carbon Dioxide (22-29) mmol/L Anion Gap (12-20) BUN (9-16) mg/dL Creatinine (0.5-1.4) mg/dL Estim Creat Clear Calc Estimated GFR POC Glucose (60-115) mg/dL Random Glucose (60-115) mg/dL Calcium (8.4-10.2) mg/dL Magnesium (1.6-2.6) mg/dL Total Bilirubin (0.0-1.0) mg/dL Direct Bilirubin (0.0-0.5) mg/dL AST (5-37) U/L ALT (0-40) U/L Alkaline Phosphatase (39-117) U/L Troponin I High Sens < 3.5 (<3.5-35.0) ng/L B-Natriuretic Peptide (<100) pg/mL Total Protein (6.5-8.0) g/dL Albumin (3.5-5.0) g/dL Urine Color Urine Appearance Urine pH (5.0-8.0) Ur Specific [place] (1.005-1.025) Urine Protein (NEG-TRACE) MG/DL Urine Glucose (UA) (NEG) MG/DL Urine Ketones (NEG) MG/DL Urine Blood (NEG) Urine Nitrite (NEG) Ur Leukocyte Esterase (NEG) Urine RBC (0) /HPF Urine WBC (0-4) /HPF Ur Squamous Epith Cells /LPF Urine Bacteria /LPF Urine Opiates Screen Not Detected (Not Detect) Urine Fentanyl Screen Not Detected (Not Detect) Ur Barbiturates Screen Not Detected (Not Detect) Ur Phencyclidine Scrn Not Detected (Not Detect) Ur Amphetamines Screen Not Detected (Not Detect) U Benzodiazepines Scrn Not Detected (Not Detect) Urine Cocaine Screen POSITIVE H (Not Detect) U Marijuana (THC) Screen Not Detected (Not Detect) COVID-19 (SEDA) (Negative) COVID-19 Clin Com ECG Data Attestation: I personally reviewed and interpreted this ECG as follows: Prior ECG tracings: not available for review Interpretation: EKG normal sinus rhythm at a rate of 89. Pr interval 164. QTC prolonged at 493. No STEMI/nonischemic Critical Care Time Critical Care Time Critical Care Time: Yes Total Critical Care Time: 40 Attestation: I have personally provided critical care time exclusive of time spent on separately billable procedures. Time includes review of lab data, radiology results, discussion with consultants, and monitoring for potential decompensation. Intervention performed as documented. Discharge Plan Discharge Clinical Impression: Syncope, Generalized weakness Patient Disposition: Admitted As Inpatient
[2021-07-27] MEDS: 0.9 % Sodium Chloride 1,000 ML 999 ML IV ×2 (11:19→13:20)
[2021-07-27 12:20] VITALS: BP 105/57; PULSE 85; RESP 18; TEMP 36.7; O2SAT 100
[2021-07-27 12:54] LABS: COVID-19 Test Negative (Negative); IDNOW Serial# 16C4AD1C
[2021-07-27 13:08] LABS: MANUAL DIFF FLAG NO
[2021-07-27 13:10] LABS: Basophils Percent Auto 0.1 % (0-2); Eosinophils Percent Auto 0.4 % (0-4); Hematocrit 40.3 % (42.0-52.0); Hemoglobin 13.9 g/dl (14.0-18.0); Imm Gran Abs Auto 0.01 X10*3/uL (0.00-0.03); Imm Gran Pct Auto 0.1 % (0.0-0.4); Lymphocytes Absolute Auto 1.5 X10*3/uL (1.2-4.9); Lymphocytes Percent Auto 19.2 % (20-40); Mean Corpuscular HGB Conc 34.5 g/dl (31.0-36.0); Mean Corpuscular Hemoglobin 33.9 pg (27.0-33.0); Mean Corpuscular Volume 98.3 fL (80.0-98.0); Mean Platelet Volume 9.7 fL (9.4-12.4); Monocytes Absolute Auto 0.8 X10*3/uL (0.1-1.2); Monocytes Percent Auto 10.9 % (2-11); Neutrophils Absolute Auto 5.3 x10*3/uL (2.0-8.3); Neutrophils Percent Auto 69.3 % (45-73); Platelet Count 123 X10*3/uL (160-400); White Blood Count 7.6 X10*3/uL (4.8-10.8)
[2021-07-27] MEDS: Magnesium Sulfate/H2O 2 GM/50 ML PIGGYBACK IV (13:13)
[2021-07-27 13:17] LABS: INTERNATIONAL NORM RATIO 1.2 (0.9-1.1); Prothrombin Time 13.2 SEC (9.9-13.0)
[2021-07-27 13:19] LABS: D Dimer High Sensitivity 407 NG/ML
[2021-07-27 13:30] LABS: Troponin-I High Sensitivity < 3.5 ng/L (<3.5-35.0)
[2021-07-27 13:31] LABS: B Type Natriuretic Peptide < 10 pg/mL (<100)
[2021-07-27 13:31] LABS: Alanine Aminotransferase 46 U/L (0-40); Albumin Level 3.4 g/dL (3.5-5.0); Alkaline Phosphatase 96 U/L (39-117); Anion Gap 13 (12-20); Aspartate Amino Transferase 60 U/L (5-37); Bilirubin Direct 0.4 mg/dL (0.0-0.5); Bilirubin Total 0.9 mg/dL (0.0-1.0); Blood Urea Nitrogen 9 mg/dL (9-16); Calcium 8.5 mg/dL (8.4-10.2); Carbon Dioxide 26 mmol/L (22-29); Chloride 101 mmol/L (96-108); Creatinine Clr Calc Pharmacy 156.7; Estimated Glomerular Filt Rate > 60; Glucose Random 234 mg/dL (60-115); Magnesium 1.8 mg/dL (1.6-2.6); Potassium 3.8 mmol/L (3.3-5.1); Sodium 136 mmol/L (135-145); Total Protein 7.3 g/dL (6.5-8.0)
[2021-07-27 13:46] LABS: Appearance Urine CLEAR; Color Urine YELLOW; Glucose Urine UA 250 MG/DL (NEG); Leukocyte Esterase Urine NEG (NEG); Nitrite Urine NEG (NEG); UACC Culture Trigger NO; Urine Blood NEG (NEG); Urine Ketones NEG (NEG); Urine Protein 1+ MG/DL (NEG-TRACE)
[2021-07-27 14:03] LABS: Amphetamine Screen Urine Not Detected (Not Detect); Barbiturates, Urine Not Detected (Not Detect); Benzodiazepines Screen Urine Not Detected (Not Detect); Cannabinoid Screen Urine Not Detected (Not Detect); Cocaine Screen Urine POSITIVE (Not Detect); Fentanyl, urine Not Detected (Not Detect); Opiate Screen Urine Not Detected (Not Detect); Phencyclidine Screen Urine Not Detected (Not Detect)
[2021-07-27 14:06] VITALS: BP 105/62; BP 98/53; PULSE 89; PULSE 96; RESP 12; O2SAT 98
[2021-07-27 14:09] VITALS: BP 104/61; PULSE 107
--- NOTE | 2021-07-27 14:09 | PHA.MEDREC ---
Pharmacy Consult ? Medication Reconciliation Pharmacy has completed the medication reconciliation. Pt's significant other at bedside with picture of current med list, pt unsure of exactly how many units he uses of insulin, but gave rough estimate.
[2021-07-27 14:16] LABS: RBC Urine 0-2 /HPF (0); Squamous Epithelial Cell Urine 1+ /LPF; WBC Urine 0-2 /HPF (0-4)
--- NOTE | 2021-07-27 17:01 | P.HPHOSP_ITS ---
History of Present Illness Date of Service: 07/27/21 Chief Complaint: Syncope 46-year-old Kiswahili-speaking male who presented to the ER after 2 episodes of syncope at home. He reports that he got up this morning felt dizzy he has his to check his blood sugar but it was normal. He then asked her to check his blood pressure and it was 80 systolic. He reports he got up to walk and immediately fell to the ground and lost consciousness. He reports this lasted a few seconds and then he got back up and went in 1 of his children's room and sat on the bed he reports continued dizziness and 2nd episode of syncope while sitting on the bed. He woke up he noticed EMT helping him. He reported that over the last couple weeks he has felt more tired but no recent illness, travel, sick contacts, chest pain, shortness breath, visual changes. He did also report that he had a few beers with his yesterday and was out in the sun. Apparently in the ER he did have some chest pain that quickly subsided. Both troponins less than 3.5, BNP less than 10, cocaine positive on urine toxic, negative urinalysis, chest x-ray negative for consolidation or effusion, head CT negative for any acute abnormality. EKG showed normal sinus rhythm. In the ER he received 2 L of IV fluids, IV magnesium. He will be it placed on observation for further management and treatment of syncope. Review of Systems Review of Systems: Denies any recent fever chills or decrease in appetite respiratory denies any shortness of breath coverage production cardiovascular See HPI gastrointestinal denies any dysphagia abdominal pain nausea vomiting or diarrhea genitourinary denies any dysuria frequency or hematuria musculoskeletal denies any joint pain or swelling neuropsych denies any weakness or seizures all other systems reviewed are negative [facility] Medical History Arthritis Asthma Chronic back pain Cirrhosis Colitis COVID-19 Diabetes Dysuria Fatty liver GERD (gastroesophageal reflux disease) History of anxiety History of depression History of tachycardia HTN (hypertension) Hx of gastritis Lipoma of neck Obesity On beta alma at home OLIVER on CPAP Subcutaneous mass of neck Family History Father No problems noted. Mother HTN (hypertension) Sister Type II diabetes mellitus Surgical History History of esophagogastroduodenoscopy (EGD) History of left knee surgery Hx of elbow surgery S/P cubital tunnel release Social History Are you a primary career center director to a significant other at home: No Do you presently have visiting nurse or other home services: No Alcohol intake: current Alcohol intake frequency: a few times a week Alcohol type: beer Patient Tobacco Use Status: Former Tobacco user Tobacco use type: Cigarette Use of substances other than those prescribed or required for medical reasons: No Advance Directives: No Advance Directives Information Provided: No Meds Allergies Allergy/AdvReac Type Severity Reaction Status Date / Time ranitidine [From ZANTAC] Allergy Severe DIFFICULTY Verified 05/03/21 08:25 BREATHING, ITCHING Active Medications: Current Medications Acetaminophen (Acetaminophen 325 Mg Tablet) 650 mg PO Q6H PRN PRN Reason: Pain, Mild (Pain Scale 1-3) Dextrose (Dextrose 50 % 25 Gm/50 Ml Syringe) 25 gm IVPUSH Q15M PRN; Protocol PRN Reason: per Hypoglycemia Standing Ord. Enoxaparin Sodium (Enoxaparin Sodium 40 Mg/0.4 Ml Syringe) 40 mg SUBCUT Q24H BRYANNA Glucose (Glucose Gel 15 Gm Gel..Gram.) 15 gm PO Q15M PRN; Protocol PRN Reason: per Hypoglycemia Standing Ord. Insulin Human Lispro (Insulin Lispro 100 Unit/Ml 3 Ml Vial) 0 unit SUBCUT QIDACHS BRYANNA; Protocol Metoprolol Succinate (Metoprolol Succinate Er 50 Mg Tab.Er.24h) 50 mg PO DAILY BRYANNA; Protocol Montelukast Sodium (Montelukast Sodium 10 Mg Tablet) 10 mg PO BEDTIME BRYANNA Non-Formulary Medication (Insulin Glargine U-300 Conc [Toujeo Solostar U-300 Insulin]) 20 unit SUBCUT DAILY BRYANNA Omeprazole (Omeprazole 40 Mg Capsule.Dr) 40 mg PO DAILY@0630 BRYANNA Ondansetron HCl (Ondansetron Hcl 4 Mg/2 Ml Vial) 4 mg IVPUSH Q8H PRN PRN Reason: Nausea and Vomiting Pharmacy Consult (Consult Rx Perform Med Rec) 1 each MISCELLANE ONCE PRN PRN Reason: Consult order Sodium Chloride (0.9 % Sodium Chloride Flush 3 Ml Syringe) 3 ml IVFLUSH [facility] Vitamin D (Cholecalciferol (Vitamin D3) 25 Mcg Tablet) 25 mcg PO DAILY [facility] Home Medications Medication Instructions Recorded Confirmed Last Taken Type amlodipine 5 mg tablet 5 mg PO DAILY 11/15/19 07/27/21 07/27/21 History chlorthalidone 25 mg tablet 25 mg PO DAILY 11/15/19 07/27/21 07/27/21 History cholecalciferol (vitamin D3) 25 25 mcg PO DAILY 11/15/19 07/27/21 07/27/21 History mcg (1,000 unit) tablet (Vitamin D3) dexlansoprazole 60 mg 60 mg PO DAILY 11/15/19 07/27/21 07/27/21 History capsule,biphase delayed release (Dexilant) lancets 33 gauge (TRUEplus Lancets) #100 ea 11/15/19 12/27/20 Unknown History lisinopril 40 mg tablet 40 mg PO DAILY 11/15/19 07/27/21 07/27/21 History metoprolol succinate 50 mg 50 mg PO DAILY 11/15/19 07/27/21 07/27/21 History tablet,extended release 24 hr pen needle, diabetic 32 gauge x #50 ea 11/15/19 12/27/20 Unknown History (Unifine Pentips) metoclopramide HCl 5 mg tablet 1 tab PO BEDTIME 08/13/20 07/27/21 07/27/21 History montelukast 10 mg tablet 1 tab PO BEDTIME 08/13/20 07/27/21 07/26/21 History insulin lispro 100 unit/mL 10 unit subcut DIRECTED 09/26/20 12/27/20 Unknown History subcutaneous pen (Humalog KwikPen (U-100) Insulin) blood sugar diagnostic (FreeStyle #10 ea 05/03/21 Unknown History Lite Strips) insulin glargine U-300 conc 300 20 unit subcut DAILY 05/03/21 07/27/21 07/27/21 History unit/mL (1.5 mL) subcutaneous pen (Toujeo SoloStar U-300 Insulin) Physical Exam Vital Signs and Narrative: Vital Signs: Last Vital Signs Temp 98.0 F 07/27/21 12:20 Pulse 107 H 07/27/21 14:09 Resp 12 07/27/21 14:06 BP 104/61 07/27/21 14:09 Pulse Ox 98 07/27/21 14:06 O2 Del Method 07/27/21 14:06 BMI result Body Mass Index 42.8 Appearing in no acute distress head is normocephalic atraumatic eyes pupils are PERRLA sclera is anicteric mouth throat mucous membranes are intact and moist neck is supple no lymphadenopathy, no JVD noted lung sounds are clear to auscultation heart regular rate rhythm, clear S1, S2 positive bowel sounds, abdomen is soft, nontender neuro patient is alert x3, no focal deficits Results Labs CBC and Chem 7: 07/27/21 13:03 07/27/21 13:03 Labs: Laboratory Results - last 24 hr 07/27/21 07/27/21 07/27/21 10:52 12:36 13:03 MCV 98.3 H MCH 33.9 H MCHC 34.5 RDW 14.0 Plt Count 123 L MPV 9.7 Immature Gran % (Auto) 0.1 Neut % (Auto) 69.3 Lymph % (Auto) 19.2 L Grimes % (Auto) 10.9 Eos % (Auto) 0.4 Baso % (Auto) 0.1 Lymph # (Auto) 1.5 Grimes # (Auto) 0.8 Eos # (Auto) 0.0 Baso # (Auto) 0.0 Abs Immat Gran (auto) 0.01 Absolute Neuts (auto) 5.3 Absolute Nucleated RBC 0.000 Nucleated RBC % (auto) 0.0 PT INR D-Dimer High Sensitivty Anion Gap Estim Creat Clear Calc Estimated GFR POC Glucose 246 H Random Glucose Calcium Magnesium Total Bilirubin Direct Bilirubin AST ALT Alkaline Phosphatase Troponin I High Sens B-Natriuretic Peptide Total Protein Albumin Urine Color Urine Appearance Urine pH Ur Specific [place] Urine Protein Urine Glucose (UA) Urine Ketones Urine Blood Urine Nitrite Ur Leukocyte Esterase Urine RBC Urine WBC Ur Squamous Epith Cells Urine Bacteria Urine Opiates Screen Urine Fentanyl Screen Ur Barbiturates Screen Ur Phencyclidine Scrn Ur Amphetamines Screen U Benzodiazepines Scrn Urine Cocaine Screen U Marijuana (THC) Screen COVID-19 ([facility]) Negative COVID-19 Clin Com See Note 07/27/21 07/27/21 07/27/21 13:03 13:03 13:03 MCV MCH MCHC RDW Plt Count MPV Immature Gran % (Auto) Neut % (Auto) Lymph % (Auto) Grimes % (Auto) Eos % (Auto) Baso % (Auto) Lymph # (Auto) Grimes # (Auto) Eos # (Auto) Baso # (Auto) Abs Immat Gran (auto) Absolute Neuts (auto) Absolute Nucleated RBC Nucleated RBC % (auto) PT 13.2 H INR 1.2 H D-Dimer High Sensitivty Anion Gap 13 Estim Creat Clear Calc 156.7 Estimated GFR > 60 POC Glucose Random Glucose 234 H D Calcium 8.5 D Magnesium 1.8 Total Bilirubin 0.9 Direct Bilirubin 0.4 AST 60 H ALT 46 H Alkaline Phosphatase 96 Troponin I High Sens < 3.5 B-Natriuretic Peptide Total Protein 7.3 Albumin 3.4 L Urine Color Urine Appearance Urine pH Ur Specific [place] Urine Protein Urine Glucose (UA) Urine Ketones Urine Blood Urine Nitrite Ur Leukocyte Esterase Urine RBC Urine WBC Ur Squamous Epith Cells Urine Bacteria Urine Opiates Screen Urine Fentanyl Screen Ur Barbiturates Screen Ur Phencyclidine Scrn Ur Amphetamines Screen U Benzodiazepines Scrn Urine Cocaine Screen U Marijuana (THC) Screen COVID-19 ([facility]) COVID-19 Clin Com 07/27/21 07/27/21 07/27/21 13:03 13:04 13:35 MCV MCH MCHC RDW Plt Count MPV Immature Gran % (Auto) Neut % (Auto) Lymph % (Auto) Grimes % (Auto) Eos % (Auto) Baso % (Auto) Lymph # (Auto) Grimes # (Auto) Eos # (Auto) Baso # (Auto) Abs Immat Gran (auto) Absolute Neuts (auto) Absolute Nucleated RBC Nucleated RBC % (auto) PT INR D-Dimer High Sensitivty 407 Anion Gap Estim Creat Clear Calc Estimated GFR POC Glucose Random Glucose Calcium Magnesium Total Bilirubin Direct Bilirubin AST ALT Alkaline Phosphatase Troponin I High Sens B-Natriuretic Peptide < 10 Total Protein Albumin Urine Color YELLOW Urine Appearance CLEAR Urine pH 7.0 Ur Specific [place] 1.010 Urine Protein 1+ H Urine Glucose (UA) 250 H Urine Ketones NEG Urine Blood NEG Urine Nitrite NEG Ur Leukocyte Esterase NEG Urine RBC 0-2 Urine WBC 0-2 Ur Squamous Epith Cells 1+ Urine Bacteria NONE Urine Opiates Screen Urine Fentanyl Screen Ur Barbiturates Screen Ur Phencyclidine Scrn Ur Amphetamines Screen U Benzodiazepines Scrn Urine Cocaine Screen U Marijuana (THC) Screen COVID-19 ([facility]) COVID-19 Clin Com 07/27/21 13:35 MCV MCH MCHC RDW Plt Count MPV Immature Gran % (Auto) Neut % (Auto) Lymph % (Auto) Grimes % (Auto) Eos % (Auto) Baso % (Auto) Lymph # (Auto) Grimes # (Auto) Eos # (Auto) Baso # (Auto) Abs Immat Gran (auto) Absolute Neuts (auto) Absolute Nucleated RBC Nucleated RBC % (auto) PT INR D-Dimer High Sensitivty Anion Gap Estim Creat Clear Calc Estimated GFR POC Glucose Random Glucose Calcium Magnesium Total Bilirubin Direct Bilirubin AST ALT Alkaline Phosphatase Troponin I High Sens B-Natriuretic Peptide Total Protein Albumin Urine Color Urine Appearance Urine pH Ur Specific [place] Urine Protein Urine Glucose (UA) Urine Ketones Urine Blood Urine Nitrite Ur Leukocyte Esterase Urine RBC Urine WBC Ur Squamous Epith Cells Urine Bacteria Urine Opiates Screen Not Detected Urine Fentanyl Screen Not Detected Ur Barbiturates Screen Not Detected Ur Phencyclidine Scrn Not Detected Ur Amphetamines Screen Not Detected U Benzodiazepines Scrn Not Detected Urine Cocaine Screen POSITIVE H U Marijuana (THC) Screen Not Detected COVID-19 ([facility]) COVID-19 Clin Com Imaging Radiologist's Impressions: Impressions Chest X-Ray 07/27/21 12:10 IMPRESSION: Subsegmental atelectasis at the lung bases. Head CT 07/27/21 12:38 IMPRESSION: No acute intracranial findings. Chest CTA 07/27/21 15:50 IMPRESSION: No evidence of pulmonary embolism. Cirrhotic-appearing liver. Small liver lesions. Follow-up elective MR of the liver with contrast recommended. Gallstones. VTE: negative Assessment and Plan (1) Syncope: Status: Acute Plan 46 year old man placed on observation for an episode of syncope and weakness. He has been having weakness over the last several weeks. According to the patie nt yesterday he had few peers with his in was out in the sun. Syncope Likely secondary to hypotension /Dehydration monitor on telemetry to r/o arrythmia check orthostatic BP IV fluid Hold antihypertensives Hypotension Hold home medications possible reason for syncope follow BP closely He may need some medication changes due to possible ongoing hypotension causing weakness and now syncope Diabetes 2 ss, ada diet Hx of tachycardia continue BB DVT prophylaxis with lovenox Attending Dr. Mlapah Full code Quality Stroke Does the patient have a stroke diagnosis?: No VTE Prior VTE?: No VTE Risk Level:: Medical - moderate - high VTE Device Contraindication: Treatment Not Indicated VTE Drug Contraindication: N/A - Med Ordered
[2021-07-27 17:08] LABS: Troponin-I High Sensitivity < 3.5 ng/L (<3.5-35.0)
[2021-07-27] MEDS: Enoxaparin Sodium 40 MG/0.4 ML SYRINGE SUBCUT (17:33)
[2021-07-27 19:05] VITALS: BP 118/57; PULSE 91; RESP 17; O2SAT 99
[2021-07-27 21:17] VITALS: BP 134/82; PULSE 83; RESP 16; TEMP 36.8; O2SAT 98
[2021-07-27 21:25] LABS: Glucose, Whole Blood 264 mg/dL (60-115)
[2021-07-27] MEDS: Montelukast Sodium 10 MG TABLET PO (21:30)
[2021-07-27] MEDS: Insulin Lispro 100 UNIT/ML 3 ML VIAL SUBCUT (21:30)
[2021-07-28] VITALS (7 sets, daily range): BP systolic 111–157; BP diastolic 56–77; PULSE 73–93; RESP 15–20; TEMP 36.5–36.8; O2SAT 96–98
[2021-07-28] MEDS: 0.9 % Sodium Chloride Flush 3 ML SYRINGE IVFLUSH ×2 (00:18→07:43)
[2021-07-28 07:02] LABS: MANUAL DIFF FLAG NO
[2021-07-28 07:07] LABS: Glucose, Whole Blood 222 mg/dL (60-115)
[2021-07-28 07:09] LABS: Basophils Percent Auto 0.2 % (0-2); Eosinophils Absolute Auto 0.1 X10*3/uL (0.0-0.4); Eosinophils Percent Auto 1.5 % (0-4); Hematocrit 36.9 % (42.0-52.0); Hemoglobin 12.7 g/dl (14.0-18.0); Imm Gran Abs Auto 0.01 X10*3/uL (0.00-0.03); Imm Gran Pct Auto 0.2 % (0.0-0.4); Lymphocytes Absolute Auto 2.2 X10*3/uL (1.2-4.9); Lymphocytes Percent Auto 37.2 % (20-40); Mean Corpuscular HGB Conc 34.4 g/dl (31.0-36.0); Mean Corpuscular Hemoglobin 34.4 pg (27.0-33.0); Mean Platelet Volume 10.6 fL (9.4-12.4); Monocytes Absolute Auto 0.8 X10*3/uL (0.1-1.2); Monocytes Percent Auto 14.1 % (2-11); Neutrophils Absolute Auto 2.7 x10*3/uL (2.0-8.3); Neutrophils Percent Auto 46.8 % (45-73); Platelet Count 116 X10*3/uL (160-400); Red Blood Count 3.69 X10*6/uL (4.60-5.80); Red Cell Distribution Width 14.2 % (11.0-16.0); White Blood Count 5.8 X10*3/uL (4.8-10.8)
[2021-07-28 07:24] LABS: Anion Gap 8 (12-20); Blood Urea Nitrogen 10 mg/dL (9-16); Calcium 8.3 mg/dL (8.4-10.2); Carbon Dioxide 27 mmol/L (22-29); Chloride 104 mmol/L (96-108); Creatinine Clr Calc Pharmacy 169.4; Estimated Glomerular Filt Rate > 60; Glucose Random 219 mg/dL (60-115); Potassium 3.1 mmol/L (3.3-5.1); Sodium 136 mmol/L (135-145)
[2021-07-28] MEDS: Insulin Glargine,Hum.rec.anlog 100 UNIT/ML 10 ML VIAL 16 UNIT SUBCUT (07:42)
[2021-07-28] MEDS: Metoprolol Succinate ER 50 MG TAB.ER.24H PO (07:43)
[2021-07-28] MEDS: Cholecalciferol (Vitamin D3) 25 MCG TABLET PO (07:43)
[2021-07-28] MEDS: Insulin Lispro 100 UNIT/ML 3 ML VIAL SUBCUT ×4 (07:43→21:02)
--- NOTE | 2021-07-28 09:43 | MHC.CM.PN ---
Patient lives at home w/significant other. He owns a walker and a CPAP; O2 services delivered through [facility] per significant other. Inquired RE previous VNA services; significant other indicates no prior nursing services and none are desired. Patient has 2 hours of [employer] services per day. He owns a walker and uses it intermittently. CM to follow for D/C planning instructions per medical.
[2021-07-28] MEDS: Potassium Chloride ER 20 MEQ TAB.ER.PRT 40 MEQ PO (10:16)
--- NOTE | 2021-07-28 10:38 | P.CONCA_ITS ---
History of Present Illness History of Present Illness Date of Service: 07/28/21 Chief complaint: Syncope Chest Pain Narrative: This is a cardiology consultation regarding syncopal episode. Patient has a history of hypertension on on numerous antihypertensives. He is generally followed by his own PCP only. Apparently had dizziness yesterday and that led to blood pressure being checked. In that she [employer]ODUCTION [employer], listed to be 80 mm Hg systolic. However, when I questioned him about this, he states that was 60/20 mm Hg. Not clear which is the more accurate reading. Any case it seems that he had dizziness as well as syncopal episodes subsequently and that led to the hospitalization. He denies any chest pain to me but again H and P states that he had brief chest pain in the ER that subsided quickly. There is no known cardiac issues according to patient. No history of any coronary artery disease or myocardial infarction or cardiomyopathy or in fact anything cardiac related. Currently feels fine. His blood pressure medications are on hold. Review of Systems Review of Systems: Yes all other systems are reviewed and are negative Constitutional: Constitutional: Reports as per HPI Eyes: Eyes: Reports as per HPI ENT: Reports as per HPI Cardiovascular: Cardiovascular: Reports as per HPI, Denies acrocyanosis, Denies cool extremities, Denies chest pain, Denies leg edema, Reports lightheadedness, Reports Loss of Consciousness, Denies palpitations and Denies dyspnea Respiratory: Respiratory: Reports as per HPI, Reports no additional respiratory complaints and Denies dyspnea Gastrointestinal: Gastrointestinal: Reports as per HPI and Reports no additional gastrointestinal complaints Genitourinary: Genitourinary: Reports no additional male genitourinary complaints and Reports as per HPI Musculoskeletal: Musculoskeletal: Reports no additional musculoskeletal complaints and Reports as per HPI Integumentary/Breasts: Skin/Breast: Reports system reviewed and no additional complaints, except as docu Neurologic: Reports system reviewed and no additional complaints, except as documented and Reports as per HPI Psychiatric: Psychiatric: Reports no additional psychiatric complaints and Reports as per HPI Endocrine: Endocrine: Reports no additional endocrine complaints, Reports as per HPI and Denies palpitations Hematologic/Lymphatic: Hematologic/Lymphatic: Reports no additional hematologic/lymphatic complaints and Reports as per HPI Allergic/Immunologic: Allergic/Immunologic: Reports no additional allergic/immunologic complaints and Reports as per HPI [facility] Past Medical History Medical History Arthritis Asthma Chronic back pain Cirrhosis Colitis COVID-19 Diabetes Dysuria Fatty liver GERD (gastroesophageal reflux disease) History of anxiety History of depression History of tachycardia HTN (hypertension) Hx of gastritis Lipoma of neck Obesity On beta alma at home OLIVER on CPAP Subcutaneous mass of neck Family History Family History Father No problems noted. Mother HTN (hypertension) Sister Type II diabetes mellitus Surgical History Surgical History History of esophagogastroduodenoscopy (EGD) History of left knee surgery Hx of elbow surgery S/P cubital tunnel release Social History Social History Are you a primary director medicare sales to a significant other at home: No Do you presently have visiting nurse or other home services: No Alcohol intake: current Alcohol intake frequency: a few times a week Alcohol type: beer Patient Tobacco Use Status: Former Tobacco user Tobacco use type: Cigarette Use of substances other than those prescribed or required for medical reasons: No Advance Directives: No Advance Directives Information Provided: No service: No Current occupational status: unemployed and disabled Meds Allergies Allergy/AdvReac Type Severity Reaction Status Date / Time ranitidine [From ZANTAC] Allergy Severe DIFFICULTY Verified 05/03/21 08:25 BREATHING, ITCHING Active Medications: Current Medications Acetaminophen (Acetaminophen 325 Mg Tablet) 650 mg PO Q6H PRN PRN Reason: Pain, Mild (Pain Scale 1-3) Dextrose (Dextrose 50 % 25 Gm/50 Ml Syringe) 25 gm IVPUSH Q15M PRN; Protocol PRN Reason: per Hypoglycemia Standing Ord. Enoxaparin Sodium (Enoxaparin Sodium 40 Mg/0.4 Ml Syringe) 40 mg SUBCUT Q24H BRYANNA Last Admin: 07/27/21 17:33 Dose: 40 mg Glucose (Glucose Gel 15 Gm Gel..Gram.) 15 gm PO Q15M PRN; Protocol PRN Reason: per Hypoglycemia Standing Ord. Insulin Glargine (Insulin Glargine,Hum.Rec.Anlog 100 Unit/Ml 10 Ml Vial) 16 unit SUBCUT DAILY BRYANNA Last Admin: 07/28/21 07:42 Dose: 16 unit Insulin Human Lispro (Insulin Lispro 100 Unit/Ml 3 Ml Vial) 0 unit SUBCUT QIDACHS [facility]; Protocol Last Admin: 07/28/21 07:43 Dose: 4 unit Metoprolol Succinate (Metoprolol Succinate Er 50 Mg Tab.Er.24h) 50 mg PO DAILY [facility]; Protocol Last Admin: 07/28/21 07:43 Dose: 50 mg Montelukast Sodium (Montelukast Sodium 10 Mg Tablet) 10 mg PO BEDTIME [facility] Last Admin: 07/27/21 21:30 Dose: 10 mg Omeprazole (Omeprazole 40 Mg Capsule.Dr) 40 mg PO DAILY@30 [facility] Last Admin: 07/28/21 06:42 Dose: Not Given Ondansetron HCl (Ondansetron Hcl 4 Mg/2 Ml Vial) 4 mg IVPUSH Q8H PRN PRN Reason: Nausea and Vomiting Pharmacy Consult (Consult Rx Perform Med Rec) 1 each MISCELLANE ONCE PRN PRN Reason: Consult order Sodium Chloride (0.9 % Sodium Chloride Flush 3 Ml Syringe) 3 ml IVFLUSH QSHIFT [facility] Last Admin: 07/28/21 07:43 Dose: 3 ml Vitamin D (Cholecalciferol (Vitamin D3) 25 Mcg Tablet) 25 mcg PO DAILY [facility] Last Admin: 07/28/21 07:43 Dose: 25 mcg Home Medications Medication Instructions Recorded Confirmed Last Taken Type amlodipine 5 mg tablet 5 mg PO DAILY 11/15/19 07/27/21 07/27/21 History chlorthalidone 25 mg tablet 25 mg PO DAILY 11/15/19 07/27/21 07/27/21 History cholecalciferol (vitamin D3) 25 25 mcg PO DAILY 11/15/19 07/27/21 07/27/21 History mcg (1,000 unit) tablet (Vitamin D3) dexlansoprazole 60 mg 60 mg PO DAILY 11/15/19 07/27/21 07/27/21 History capsule,biphase delayed release (Dexilant) lancets 33 gauge (TRUEplus Lancets) #100 ea 11/15/19 12/27/20 Unknown History lisinopril 40 mg tablet 40 mg PO DAILY 11/15/19 07/27/21 07/27/21 History metoprolol succinate 50 mg 50 mg PO DAILY 11/15/19 07/27/21 07/27/21 History tablet,extended release 24 hr pen needle, diabetic 32 gauge x #50 ea 11/15/19 12/27/20 Unknown History (Unifine Pentips) metoclopramide HCl 5 mg tablet 1 tab PO BEDTIME 08/13/20 07/27/21 07/27/21 Hist ory montelukast 10 mg tablet 1 tab PO BEDTIME 08/13/20 07/27/21 07/26/21 History insulin lispro 100 unit/mL 10 unit subcut DIRECTED 09/26/20 12/27/20 Unknown History subcutaneous pen (Humalog KwikPen (U-100) Insulin) blood sugar diagnostic (FreeStyle #10 ea 05/03/21 Unknown History Lite Strips) insulin glargine U-300 conc 300 20 unit subcut DAILY 05/03/21 07/27/21 07/27/21 History unit/mL (1.5 mL) subcutaneous pen (Toujeo SoloStar U-300 Insulin) Physical Exam Vital Signs: Vital Signs: Last Vital Signs Temp 97.7 F 07/28/21 04:00 Pulse 82 07/28/21 07:44 Resp 16 07/28/21 07:44 BP 111/60 07/28/21 10:26 Pulse Ox 96 07/28/21 07:44 O2 Del Method CPAP 07/28/21 07:44 BMI result Body Mass Index 42.8 Const: General: comfortable and no acute distress Orientation/consciousness: patient oriented x3 HEENT: Other: Unremarkable Head: Yes normal to inspection Neck: Neck: Yes normal visual inspection Chest: Chest palpation & inspection: normal inspection of the chest Resp: Auscultation: clear to auscultation bilaterally Cardio: Palpation: normal PMI Heart sounds: S1 normal heart sound present, S2 normal heart sound present, no gallops, no murmurs and no rubs GI: Palpation (GI): Soft to palpation Back/Spine/Pelvis: Other: unremarkable Skin: General skin exam: no rashes or lesions noted Neuro: General: patient oriented x3 Extrem: General: Yes normal to inspection Psych: Mental Status: mental status grossly normal Objective Labs and Meds Result diagrams: 07/28/21 06:04 07/28/21 06:04 Lab results: Laboratory Results - last 24 hr 07/27/21 07/27/21 07/27/21 10:52 12:36 13:03 WBC 7.6 RBC 4.10 L Hgb 13.9 L Hct 40.3 L MCV 98.3 H MCH 33.9 H MCHC 34.5 RDW 14.0 Plt Count 123 L MPV 9.7 Immature Gran % (Auto) 0.1 Neut % (Auto) 69.3 Lymph % (Auto) 19.2 L [place] % (Auto) 10.9 Eos % (Auto) 0.4 Baso % (Auto) 0.1 Lymph # (Auto) 1.5 [place] # (Auto) 0.8 Eos # (Auto) 0.0 Baso # (Auto) 0.0 Abs Immat Gran (auto) 0.01 Absolute Neuts (auto) 5.3 Absolute Nucleated RBC 0.000 Nucleated RBC % (auto) 0.0 PT INR D-Dimer High Sensitivty Sodium Potassium Chloride Carbon Dioxide Anion Gap BUN Creatinine Estim Creat Clear Calc Estimated GFR POC Glucose 246 H Random Glucose Calcium Magnesium Total Bilirubin Direct Bilirubin AST ALT Alkaline Phosphatase Troponin I High Sens B-Natriuretic Peptide Total Protein Albumin Urine Color Urine Appearance Urine pH Ur Specific [place] Urine Protein Urine Glucose (UA) Urine Ketones Urine Blood Urine Nitrite Ur Leukocyte Esterase Urine RBC Urine WBC Ur Squamous Epith Cells Urine Bacteria Urine Opiates Screen Urine Fentanyl Screen Ur Barbiturates Screen Ur Phencyclidine Scrn Ur Amphetamines Screen U Benzodiazepines Scrn Urine Cocaine Screen U Marijuana (THC) Screen COVID-19 ([facility]) Negative COVID-19 Clin Com See Note 07/27/21 07/27/21 07/27/21 13:03 13:03 13:03 WBC RBC Hgb Hct MCV MCH MCHC RDW Plt Count MPV Immature Gran % (Auto) Neut % (Auto) Lymph % (Auto) [place] % (Auto) Eos % (Auto) Baso % (Auto) Lymph # (Auto) [place] # (Auto) Eos # (Auto) Baso # (Auto) Abs Immat Gran (auto) Absolute Neuts (auto) Absolute Nucleated RBC Nucleated RBC % (auto) PT 13.2 H INR 1.2 H D-Dimer High Sensitivty Sodium 136 Potassium 3.8 Chloride 101 Carbon Dioxide 26 Anion Gap 13 BUN 9 Creatinine 0.80 Estim Creat Clear Calc 156.7 Estimated GFR > 60 POC Glucose Random Glucose 234 H D Calcium 8.5 D Magnesium 1.8 Total Bilirubin 0.9 Direct Bilirubin 0.4 AST 60 H ALT 46 H Alkaline Phosphatase 96 Troponin I High Sens < 3.5 B-Natriuretic Peptide Total Protein 7.3 Albumin 3.4 L Urine Color Urine Appearance Urine pH Ur Specific [place] Urine Protein Urine Glucose (UA) Urine Ketones Urine Blood Urine Nitrite Ur Leukocyte Esterase Urine RBC Urine WBC Ur Squamous Epith Cells Urine Bacteria Urine Opiates Screen Urine Fentanyl Screen Ur Barbiturates Screen Ur Phencyclidine Scrn Ur Amphetamines Screen U Benzodiazepines Scrn Urine Cocaine Screen U Marijuana (THC) Screen COVID-19 ([facility]) COVID-19 [employer] [facility] 07/27/21 07/27/21 07/27/21 13:03 13:04 13:35 WBC RBC Hgb Hct MCV MCH MCHC RDW Plt Count MPV Immature Gran % (Auto) Neut % (Auto) Lymph % (Auto) [place] % (Auto) Eos % (Auto) Baso % (Auto) Lymph # (Auto) [place] # (Auto) Eos # (Auto) Baso # (Auto) Abs Immat Gran (auto) Absolute Neuts (auto) Absolute Nucleated RBC Nucleated RBC % (auto) PT INR D-Dimer High Sensitivty 407 Sodium Potassium Chloride Carbon Dioxide Anion Gap BUN Creatinine Estim Creat Clear Calc Estimated GFR POC Glucose Random Glucose Calcium Magnesium Total Bilirubin Direct Bilirubin AST ALT Alkaline Phosphatase Troponin I High Sens B-Natriuretic Peptide < 10 Total Protein Albumin Urine Color YELLOW Urine Appearance CLEAR Urine pH 7.0 Ur Specific [place] 1.010 Urine Protein 1+ H Urine Glucose (UA) 250 H Urine Ketones NEG Urine Blood NEG Urine Nitrite NEG Ur Leukocyte Esterase NEG Urine RBC 0-2 Urine WBC 0-2 Ur Squamous Epith Cells 1+ Urine Bacteria NONE Urine Opiates Screen Urine Fentanyl Screen Ur Barbiturates Screen Ur Phencyclidine Scrn Ur Amphetamines Screen U Benzodiazepines Scrn Urine Cocaine Screen U Marijuana (THC) Screen COVID-19 ([facility]) COVID-19 [employer] 07/27/21 07/27/21 07/27/21 13:35 16:33 21:21 WBC RBC Hgb Hct MCV MCH MCHC RDW Plt Count MPV Immature Gran % (Auto) Neut % (Auto) Lymph % (Auto) [place] % (Auto) Eos % (Auto) Baso % (Auto) Lymph # (Auto) [place] # (Auto) Eos # (Auto) Baso # (Auto) Abs Immat Gran (auto) Absolute Neuts (auto) Absolute Nucleated RBC Nucleated RBC % (auto) PT INR D-Dimer High Sensitivty Sodium Potassium Chloride Carbon Dioxide Anion Gap BUN Creatinine Estim Creat Clear Calc Estimated GFR POC Glucose 264 H Random Glucose Calcium Magnesium Total Bilirubin Direct Bilirubin AST ALT Alkaline Phosphatase Troponin I High Sens < 3.5 B-Natriuretic Peptide Total Protein Albumin Urine Color Urine Appearance Urine pH Ur Specific [place] Urine Protein Urine Glucose (UA) Urine Ketones Urine Blood Urine Nitrite Ur Leukocyte Esterase Urine RBC Urine WBC Ur Squamous Epith Cells Urine Bacteria Urine Opiates Screen Not Detected Urine Fentanyl Screen Not Detected Ur Barbiturates Screen Not Detected Ur Phencyclidine Scrn Not Detected Ur Amphetamines Screen Not Detected U Benzodiazepines Scrn Not Detected Urine Cocaine Screen POSITIVE H U Marijuana (THC) Screen Not Detected COVID-19 ([facility]) COVID-19 Clin [facility] 07/28/21 07/28/21 07/28/21 06:04 06:04 07:01 WBC 5.8 RBC 3.69 L Hgb 12.7 L Hct 36.9 L MCV 100.0 H MCH 34.4 H MCHC 34.4 RDW 14.2 Plt Count 116 L MPV 10.6 Immature Gran % (Auto) 0.2 Neut % (Auto) 46.8 Lymph % (Auto) 37.2 [place] % (Auto) 14.1 H Eos % (Auto) 1.5 Baso % (Auto) 0.2 Lymph # (Auto) 2.2 [place] # (Auto) 0.8 Eos # (Auto) 0.1 Baso # (Auto) 0.0 Abs Immat Gran (auto) 0.01 Absolute Neuts (auto) 2.7 Absolute Nucleated RBC 0.000 Nucleated RBC % (auto) 0.0 PT INR D-Dimer High Sensitivty Sodium 136 Potassium 3.1 L Chloride 104 Carbon Dioxide 27 Anion Gap 8 L BUN 10 Creatinine 0.74 Estim Creat Clear Calc 169.4 Estimated GFR > 60 POC Glucose 222 H Random Glucose 219 H Calcium 8.3 L Magnesium Total Bilirubin Direct Bilirubin AST ALT Alkaline Phosphatase Troponin I High Sens B-Natriuretic Peptide Total Protein Albumin Urine Color Urine Appearance Urine pH Ur Specific [place] Urine Protein Urine Glucose (UA) Urine Ketones Urine Blood Urine Nitrite Ur Leukocyte Esterase Urine RBC Urine WBC Ur Squamous Epith Cells Urine Bacteria Urine Opiates Screen Urine Fentanyl Screen Ur Barbiturates Screen Ur Phencyclidine Scrn Ur Amphetamines Screen U Benzodiazepines Scrn Urine Cocaine Screen U Marijuana (THC) Screen COVID-19 ([facility]) COVID-19 Clin Com ECG Interpretation: EKG with sinus rhythm at 89/Min; no significant ST-T changes; normal [place]/slightly prolonged QTc. Imaging Radiologist's impression: Impressions Chest X-Ray 07/27/21 12:10 IMPRESSION: Subsegmental atelectasis at the lung bases. Head CT 07/27/21 12:38 IMPRESSION: No acute intracranial findings. Chest CTA 07/27/21 15:50 IMPRESSION: No evidence of pulmonary embolism. Cirrhotic-appearing liver. Small liver lesions. Follow-up elective MR of the liver with contrast recommended. Gallstones. VTE: negative Assessment and Plan (1) Syncope: Status: Acute (2) Prolonged QT interval: Status: Acute (3) Arterial hypotension: Status: Acute Plan EKG was like QT prolongation but otherwise unremarkable. No clear arrhythmias on telemetry. High sensitivity troponins are unremarkable. Cardiac BNP is also normal. CT scan reported to have no pulmonary embolism. Cirrhotic liver. CT head with no acute findings. Initial blood pressures in the ER where on the lower side at 100/58 mm Hg but nothing profoundly low. Overall, most likely hypotension causing syncopal episodes. Listed antihypertensives include amlodipine 5 mg daily, chlorthalidone 25 mg daily, lisinopril 40 mg daily and metoprolol 50 mg daily. As the blood pressure is still on the lower side will continue to hold all of these. Will monitor him in the hospital for today and possibly tomorrow. As the blood pressure improves, we can resume at least some of these. He may not need all the 4 medications as above. Possibly 2-3 based on blood pressure rebound. Will follow up with you. Echocardiogram tomorrow. Discussed with Amelie Topete. Procedures Date of Service Date of Service: 07/28/21
--- NOTE | 2021-07-28 11:44 | P.PNIM_ITS ---
Subjective Subjective Date of Service: 07/28/21 Review of Systems Follow up hypotension, syncope no further episodes no chest pain Physical Exam Vital Signs: Vital Signs: Last Vital Signs Temp 97.7 F 07/28/21 04:00 Pulse 82 07/28/21 07:44 Resp 16 07/28/21 07:44 BP 111/60 07/28/21 10:26 Pulse Ox 96 07/28/21 07:44 O2 Del Method CPAP 07/28/21 07:44 BMI result Body Mass Index 42.8 Appearing in no acute distress lung sounds are clear to auscultation heart regular rate rhythm, clear S1, S2 positive bowel sounds, abdomen is soft, nontender neuro patient is alert x3, no focal deficits Objective Data Active Medications Acetaminophen (Acetaminophen 325 Mg Tablet) 650 mg PO Q6H PRN PRN Reason: Pain, Mild (Pain Scale 1-3) Dextrose (Dextrose 50 % 25 Gm/50 Ml Syringe) 25 gm IVPUSH Q15M PRN; Protocol PRN Reason: per Hypoglycemia Standing Ord. Enoxaparin Sodium (Enoxaparin Sodium 40 Mg/0.4 Ml Syringe) 40 mg SUBCUT Q24H [facility] Last Admin: 07/27/21 17:33 Dose: 40 mg Documented By: SOFY Glucose (Glucose Gel 15 Gm Gel..Gram.) 15 gm PO Q15M PRN; Protocol PRN Reason: per Hypoglycemia Standing Ord. Insulin Glargine (Insulin Glargine,Hum.Rec.Anlog 100 Unit/Ml 10 Ml Vial) 16 unit SUBCUT DAILY [facility] Last Admin: 07/28/21 07:42 Dose: 16 unit Documented By: SENIA Insulin Human Lispro (Insulin Lispro 100 Unit/Ml 3 Ml Vial) 0 unit SUBCUT QIDACHS [facility]; Protocol Last Admin: 07/28/21 07:43 Dose: 4 unit Documented By: SENIA Metoprolol Succinate (Metoprolol Succinate Er 50 Mg Tab.Er.24h) 50 mg PO DAILY [facility]; Protocol Last Admin: 07/28/21 07:43 Dose: 50 mg Documented By: SENIA Montelukast Sodium (Montelukast Sodium 10 Mg Tablet) 10 mg PO BEDTIME [facility] Last Admin: 07/27/21 21:30 Dose: 10 mg Documented By: JANET Omeprazole (Omeprazole 40 Mg Capsule.Dr) 40 mg PO DAILY@0630 [facility] Last Admin: 07/28/21 06:42 Dose: Not Given Documented By: CARLITOS Non-Admin Reason: Patient Asleep Ondansetron HCl (Ondansetron Hcl 4 Mg/2 Ml Vial) 4 mg IVPUSH Q8H PRN PRN Reason: Nausea and Vomiting Pharmacy Consult (Consult Rx Perform Med Rec) 1 each MISCELLANE ONCE PRN PRN Reason: Consult order Sodium Chloride (0.9 % Sodium Chloride Flush 3 Ml Syringe) 3 ml IVFLUSH QSHIFT [facility] Last Admin: 07/28/21 07:43 Dose: 3 ml Documented By: SENIA Vitamin D (Cholecalciferol (Vitamin D3) 25 Mcg Tablet) 25 mcg PO DAILY [facility] Last Admin: 07/28/21 07:43 Dose: 25 mcg Documented By: SENIA Labs CBC & Chem 7: 07/28/21 06:04 07/28/21 06:04 Labs: Laboratory Results - last 24 hr 07/27/21 07/27/21 07/27/21 10:52 12:36 13:03 MCV 98.3 H MCH 33.9 H MCHC 34.5 RDW 14.0 Plt Count 123 L MPV 9.7 Immature Gran % (Auto) 0.1 Neut % (Auto) 69.3 Lymph % (Auto) 19.2 L Summers % (Auto) 10.9 Eos % (Auto) 0.4 Baso % (Auto) 0.1 Lymph # (Auto) 1.5 Summers # (Auto) 0.8 Eos # (Auto) 0.0 Baso # (Auto) 0.0 Abs Immat Gran (auto) 0.01 Absolute Neuts (auto) 5.3 Absolute Nucleated RBC 0.000 Nucleated RBC % (auto) 0.0 PT INR D-Dimer High Sensitivty Anion Gap Estim Creat Clear Calc Estimated GFR POC Glucose 246 H Random Glucose Calcium Magnesium Total Bilirubin Direct Bilirubin AST ALT Alkaline Phosphatase Troponin I High Sens B-Natriuretic Peptide Total Protein Albumin Urine Color Urine Appearance Urine pH Ur Specific [place] Urine Protein Urine Glucose (UA) Urine Ketones Urine Blood Urine Nitrite Ur Leukocyte Esterase Urine RBC Urine WBC Ur Squamous Epith Cells Urine Bacteria Urine Opiates Screen Urine Fentanyl Screen Ur Barbiturates Screen Ur Phencyclidine Scrn Ur Amphetamines Screen U Benzodiazepines Scrn Urine Cocaine Screen U Marijuana (THC) Screen COVID-19 (SEDA) Negative COVID-19 Clin Com See Note 07/27/21 07/27/21 07/27/21 13:03 13:03 13:03 MCV MCH MCHC RDW Plt Count MPV Immature Gran % (Auto) Neut % (Auto) Lymph % (Auto) Summers % (Auto) Eos % (Auto) Baso % (Auto) Lymph # (Auto) Summers # (Auto) Eos # (Auto) Baso # (Auto) Abs Immat Gran (auto) Absolute Neuts (auto) Absolute Nucleated RBC Nucleated RBC % (auto) PT 13.2 H INR 1.2 H D-Dimer High Sensitivty Anion Gap 13 Estim Creat Clear Calc 156.7 Estimated GFR > 60 POC Glucose Random Glucose 234 H D Calcium 8.5 D Magnesium 1.8 Total Bilirubin 0.9 Direct Bilirubin 0.4 AST 60 H ALT 46 H Alkaline Phosphatase 96 Troponin I High Sens < 3.5 B-Natriuretic Peptide Total Protein 7.3 Albumin 3.4 L Urine Color Urine Appearance Urine pH Ur Specific [place] Urine Protein Urine Glucose (UA) Urine Ketones Urine Blood Urine Nitrite Ur Leukocyte Esterase Urine RBC Urine WBC Ur Squamous Epith Cells Urine Bacteria Urine Opiates Screen Urine Fentanyl Screen Ur Barbiturates Screen Ur Phencyclidine Scrn Ur Amphetamines Screen U Benzodiazepines Scrn Urine Cocaine Screen U Marijuana (THC) Screen COVID-19 (ESDA) COVID-19 Clin Com 07/27/21 07/27/21 07/27/21 13:03 13:04 13:35 MCV MCH MCHC RDW Plt Count MPV Immature Gran % (Auto) Neut % (Auto) Lymph % (Auto) Summers % (Auto) Eos % (Auto) Baso % (Auto) Lymph # (Auto) Summers # (Auto) Eos # (Auto) Baso # (Auto) Abs Immat Gran (auto) Absolute Neuts (auto) Absolute Nucleated RBC Nucleated RBC % (auto) PT INR D-Dimer High Sensitivty 407 Anion Gap Estim Creat Clear Calc Estimated GFR POC Glucose Random Glucose Calcium Magnesium Total Bilirubin Direct Bilirubin AST ALT Alkaline Phosphatase Troponin I High Sens B-Natriuretic Peptide < 10 Total Protein Albumin Urine Color YELLOW Urine Appearance CLEAR Urine pH 7.0 Ur Specific [place] 1.010 Urine Protein 1+ H Urine Glucose (UA) 250 H Urine Ketones NEG Urine Blood NEG Urine Nitrite NEG Ur Leukocyte Esterase NEG Urine RBC 0-2 Urine WBC 0-2 Ur Squamous Epith Cells 1+ Urine Bacteria NONE Urine Opiates Screen Urine Fentanyl Screen Ur Barbiturates Screen Ur Phencyclidine Scrn Ur Amphetamines Screen U Benzodiazepines Scrn Urine Cocaine Screen U Marijuana (THC) Screen COVID-19 (SEDA) COVID-19 Clin Com 07/27/21 07/27/21 07/27/21 13:35 16:33 21:21 MCV MCH MCHC RDW Plt Count MPV Immature Gran % (Auto) Neut % (Auto) Lymph % (Auto) Summers % (Auto) Eos % (Auto) Baso % (Auto) Lymph # (Auto) Summers # (Auto) Eos # (Auto) Baso # (Auto) Abs Immat Gran (auto) Absolute Neuts (auto) Absolute Nucleated RBC Nucleated RBC % (auto) PT INR D-Dimer High Sensitivty Anion Gap Estim Creat Clear Calc Estimated GFR POC Glucose 264 H Random Glucose Calcium Magnesium Total Bilirubin Direct Bilirubin AST ALT Alkaline Phosphatase Troponin I High Sens < 3.5 B-Natriuretic Peptide Total Protein Albumin Urine Color Urine Appearance Urine pH Ur Specific [place] Urine Protein Urine Glucose (UA) Urine Ketones Urine Blood Urine Nitrite Ur Leukocyte Esterase Urine RBC Urine WBC Ur Squamous Epith Cells Urine Bacteria Urine Opiates Screen Not Detected Urine Fentanyl Screen Not Detected Ur Barbiturates Screen Not Detected Ur Phencyclidine Scrn Not Detected Ur Amphetamines Screen Not Detected U Benzodiazepines Scrn Not Detected Urine Cocaine Screen POSITIVE H U Marijuana (THC) Screen Not Detected COVID-19 (SEDA) COVID-19 Clin Com 07/28/21 07/28/21 07/28/21 06:04 06:04 07:01 MCV 100.0 H MCH 34.4 H MCHC 34.4 RDW 14.2 Plt Count 116 L MPV 10.6 Immature Gran % (Auto) 0.2 Neut % (Auto) 46.8 Lymph % (Auto) 37.2 Summers % (Auto) 14.1 H Eos % (Auto) 1.5 Baso % (Auto) 0.2 Lymph # (Auto) 2.2 Summers # (Auto) 0.8 Eos # (Auto) 0.1 Baso # (Auto) 0.0 Abs Immat Gran (auto) 0.01 Absolute Neuts (auto) 2.7 Absolute Nucleated RBC 0.000 Nucleated RBC % (auto) 0.0 PT INR D-Dimer High Sensitivty Anion Gap 8 L Estim Creat Clear Calc 169.4 Estimated GFR > 60 POC Glucose 222 H Random Glucose 219 H Calcium 8.3 L Magnesium Total Bilirubin Direct Bilirubin AST ALT Alkaline Phosphatase Troponin I High Sens B-Natriuretic Peptide Total Protein Albumin Urine Color Urine Appearance Urine pH Ur Specific [place] Urine Protein Urine Glucose (UA) Urine Ketones Urine Blood Urine Nitrite Ur Leukocyte Esterase Urine RBC Urine WBC Ur Squamous Epith Cells Urine Bacteria Urine Opiates Screen Urine Fentanyl Screen Ur Barbiturates Screen Ur Phencyclidine Scrn Ur Amphetamines Screen U Benzodiazepines Scrn Urine Cocaine Screen U Marijuana (THC) Screen COVID-19 (SEDA) COVID-19 Clin Com Assessment and Plan (1) Prolonged QT interval: Status: Acute Plan 46 year old man placed on observation for an episode of syncope and weakness.? He has been having weakness over the last several weeks.? According to the bee coon yesterday he had few peers with his in was out in the sun. Hypokalemia. Likely related to IV fluids Repleted Syncope. No further episodes Likely secondary to hypotension? /Dehydration monitor on telemetry to r/o arrythmia, non noted check orthostatic BP, negative IV fluid stopped Hold antihypertensives?and start one by one when blood pressure allows Hypotension still on the low side Hold home medications possible reason for syncope follow BP closely Hold antihypertensives?and start one by one when blood pressure allows Diabetes 2 ss, ada diet Hx of tachycardia continue BB DVT prophylaxis with lovenox Attending Dr. Hudson Full code Quality Stroke Does the patient have a stroke diagnosis?: No VTE Prior VTE?: No VTE Risk Level:: Medical - moderate - high VTE Device Contraindication: Treatment Not Indicated VTE Drug Contraindication: N/A - Med Ordered
[2021-07-28 13:10] LABS: Glucose, Whole Blood 285 mg/dL (60-115)
[2021-07-28 18:04] LABS: Glucose, Whole Blood 314 mg/dL (60-115)
[2021-07-28] MEDS: Enoxaparin Sodium 40 MG/0.4 ML SYRINGE SUBCUT (18:10)
[2021-07-28 20:34] LABS: Glucose, Whole Blood 188 mg/dL (60-115)
[2021-07-28] MEDS: Montelukast Sodium 10 MG TABLET PO (21:02)
--- NOTE | 2021-07-28 21:10 | PC.NURSE ---
Assumed care of pt Pt AxO x 4, clear and complete sentences Tamazight speaking Ambulatory to bathroom Pt medicated per MAR Pt tolerated well Will continue to monitor
--- NOTE | 2021-07-29 04:24 | PC.NURSE ---
Pt up and ambulatory to bathroom Pt tolerated well Pt back on hospital bed and on cpap NAD Will continue to monitor
[2021-07-29] MEDS: Omeprazole 40 MG CAPSULE.DR PO (05:46)
--- NOTE | 2021-07-29 07:00 | CA_ITS ---
Transthoracic Echocardiogram Patient (Last, First, Middle): Christian Tan, Gender: Male Date of : 1975 Age: 46 Procedure Date: 07/29/2021 Procedure Type: Transthoracic Echocardiogram Location: ER Height: 175.26 cm Weight: 131.54 kg BSA: 2.42 m2 Heart Rate: 71 bpm BP: 120 / 6 mmHg Any Commodity Sales Deliverer: SB Referring MD: Sarthak Guzman MD Symptoms: syncope Study Quality: Fair/Contrast ECG Rhythm: Sinus Conclusions: - Normal left ventricular size, thickness, systolic function, and wall motion. The visually estimated ejection fraction is between 55-60%. Diastolic function is normal for age. - Normal right ventricular cavity size and systolic function. - No significant valvular or pericardial pathology. Findings Procedure Information Contrast agent, definity, is being given per protocol without apparent complications. Left Ventricle Normal left ventricular size, thickness, systolic function, and wall motion. The visually estimated ejection fraction is between 55-60%. Diastolic function is normal for age. Right Ventricle Normal right ventricular cavity size and systolic function. Atria The left atrium is normal in size. Aortic Valve Normal aortic valve structure and function. There is no aortic valve stenosis. There is no aortic valve regurgitation. Mitral Valve Normal mitral valve structure and function. There is no mitral valve regurgitation. There is no mitral valve stenosis. Pulmonic Valve The pulmonic valve is likely normal. Tricuspid Valve Normal tricuspid valve structure and function. There is no tricuspid valve regurgitation. Normal right atrial pressure. Great Vessels The visualized portions of the pulmonary artery and branches are normal. Venous The inferior vena cava is normal in size and collapses greater than 50% with inspiration. Pericardium/Pleural There is no evidence of pericardial effusion. Prior Study Comparison No prior study available for comparison. Measurements 2D Linear Measurements IVSd: 0.58 0.6-0.9/0.6-1.0 cm LVIDd: 5.04 3.9-5.3/4.2-5.9 cm LVIDd Index: 2.08 2.4-3.2/2.2-3.1 cm/m2 LVIDs: 3.61 2.0-3.6 cm LVPWd: 0.55 0.7-1.1 cm Ao Root: 2.80 2.1-3.5 cm LA Diam: 3.40 2.7-3.8/3.0-4.0 cm LAIDs Index: 1.40 1.5-2.3 cm/m2 LV Mass: 111.85 67-162/88-224 g LV Mass Index: 46.22 43-95/49-115 g/m2 LVOT Diam: 2.20 3.0+(-)1.3 cm 2D Systolic Function EF 4C: 64.30 >55% EF 2C: 53.60 >55% EF BiP: 59.50 >55% Mitral Valve MV Pk E: 0.95 MV PK A: 0.57 MV Decel Time: 166.00 E/A: 1.70 E'Lateral: 16.90 E'Medial: 10.30 E/E' Med: 9.30 E/E' Lat: 5.60 PHT: 49.00 MVA PHT: 4.49 Decel Lares: 5.75 Aortic Valve AoV Pk Jacques: 1.38 AoV Mn Jacques: 0.96 AoV VTI: 0.25 AoV Pk Grad: 8.00 Aov Mn Grad: 4.00 HAYLEY Cont.VTI: 2.88 LVOT LVOT Pk Jacques: 0.98 LVOT Mn Jacques: 0.72 LVOT VTI: 0.19 LVOT Pk Grad: 4.00 LVOT Mn Grad: 2.00 LVOT Diam: 2.20 LVOT Area: 3.80 Diastolic Function MV Pk E: 0.95 MV Pk A: 0.57 E/A: 1.70 E'Medial: 10.30 E/E' Med: 9.30 E' Laterial: 16.90 E/E' Lat: 5.60 Right Ventricle TAPSE (mm): 19.10 TVS' Jacques: 10.20 Tricuspid Valve RA Press: 8.00 Great Vessels Aorta Ao Root-2D: 2.80 2.0-3.7 cm Sinus of Valsalva: 2.80 2.0-3.5 cm Ao Asc: 2.90 2.1-3.4 cm Pulmonary Veins Pulm Vein S/D 1.00 Pulmonary Valve PV Pk Jacques: 1.19 Peak PV Grad: 6.00 Updated in Other Vendor System with Status of Final Triston Mas MD electronically signed on 07/29/2021 12:14:15 PM with status of Final
[2021-07-29 07:15] VITALS: BP 130/48; PULSE 80; RESP 20; TEMP 36.5; O2SAT 93
[2021-07-29 07:32] LABS: Anion Gap 8 (12-20); Blood Urea Nitrogen 10 mg/dL (9-16); Calcium 8.2 mg/dL (8.4-10.2); Carbon Dioxide 24 mmol/L (22-29); Chloride 108 mmol/L (96-108); Creatinine Clr Calc Pharmacy 176.6; Estimated Glomerular Filt Rate > 60; Glucose Random 153 mg/dL (60-115); Potassium 3.4 mmol/L (3.3-5.1); Sodium 137 mmol/L (135-145)
[2021-07-29 07:41] LABS: Glucose, Whole Blood 138 mg/dL (60-115)
--- NOTE | 2021-07-29 07:46 | PC.NURSE ---
REPORT GIVEN TO STALIN CHRISTY. POC 138 REPORTED TO RECEIVING RN. PT CURRENTLY GETTING BEDSIDE ECHO DONE.
[2021-07-29 08:01] VITALS: PULSE 80; RESP 20; O2SAT 93
[2021-07-29] MEDS: Cholecalciferol (Vitamin D3) 25 MCG TABLET PO (09:12)
[2021-07-29] MEDS: Metoprolol Succinate ER 50 MG TAB.ER.24H PO (09:12)
[2021-07-29] MEDS: Insulin Glargine,Hum.rec.anlog 100 UNIT/ML 10 ML VIAL 16 UNIT SUBCUT (09:12)
[2021-07-29 09:17] VITALS: BP 116/71; PULSE 78; RESP 18; TEMP 36.6; O2SAT 98
[2021-07-29 11:12] LABS: Glucose, Whole Blood 232 mg/dL (60-115)
[2021-07-29 11:41] VITALS: BP 118/63; PULSE 61; RESP 18; TEMP 36.3; O2SAT 97
--- NOTE | 2021-07-29 11:53 | P.PNCA_ITS ---
Subjective Subjective Date of Service: 07/29/21 <ROSETTE Maria - Last Filed: 07/29/21 12:57> 07/29/21 <Triston Mas MD - Last Filed: 07/29/21 22:07> Principal diagnosis: syncope, hx htn <ROSETTE Maria - Last Filed: 07/29/21 12:57> Interval history: Seen at 0900. Today he reports feeling well. No dizziness, presyncope, syncope. Has walked to the bathroom. Steady on feet. No chest pains or sob. No palpitation. Reports his cocaine use in days prior to admit was an isolated event. He reports not using regularly. Tele monitoring shows SR, no ectopy, rates 70-80s. Echo pending. <ROSETTE Maria - Last Filed: 07/29/21 12:57> Review of Systems Review of Systems as above <ROSETTE Maria - Last Filed: 07/29/21 12:57> Yes all other systems are reviewed and are negative <ROSETTE Maria - Last Filed: 07/29/21 12:57> Physical Exam Vital Signs: Last Vital Signs Temp 97.4 F 07/29/21 11:41 Pulse 61 07/29/21 11:41 Resp 18 07/29/21 11:41 BP 118/63 07/29/21 11:41 Pulse Ox 97 07/29/21 11:41 O2 Del Method 07/29/21 11:41 BMI result Body Mass Index 42.8 <ROSETTE Maria - Last Filed: 07/29/21 12:57> Const General: cooperative, healthy appearing, no acute distress, alert and awake <ROSETTE Maria Last Filed: 07/29/21 12:57> Resp Effort & Inspection: normal respiratory effort, able to speak in complete sentences and not labored <ROSETTE Maria Last Filed: 07/29/21 12:57> Auscultation: clear to auscultation bilaterally, no crackles, no rales, no rhonchi and no wheezes <ROSETTE Maria - Last Filed: 07/29/21 12:57> Cardio Rate: regular rate <ROSETTE Maria - Last Filed: 07/29/21 12:57> Rhythm: regular rhythm <ROSETTE Maria Last Filed: 07/29/21 12:57> Heart sounds: S1 normal heart sound present and S2 normal heart sound present <ROSETTE Maria - Last Filed: 07/29/21 12:57> Peripheral pulses: Peripheral pulses 2+ throughout <ROSETTE Maria - Last Filed: 07/29/21 12:57> GI Inspection: Yes normal to inspection <ROSETTE Maria Last Filed: 07/29/21 12:57> Extrem General: Yes normal to inspection and No edema <ROSETTE Maria - Last Filed: 07/29/21 12:57> Objective Labs and Meds Result diagrams: : 07/28/21 06:04 07/29/21 06:41 <Luz Guerin ROSETTE - Last Filed: 07/29/21 12:57> Lab results: Laboratory Results - last 24 hr 07/28/21 07/28/21 07/28/21 13:06 18:00 20:07 Sodium Potassium Chloride Carbon Dioxide Anion Gap BUN Creatinine Estim Creat Clear Calc Estimated GFR POC Glucose 285 H 314 H 188 H Random Glucose Calcium 07/29/21 07/29/21 07/29/21 06:41 07:37 10:56 Sodium 137 Potassium 3.4 Chloride 108 Carbon Dioxide 24 Anion Gap 8 L BUN 10 Creatinine 0.71 Estim Creat Clear Calc 176.6 Estimated GFR > 60 POC Glucose 138 H 232 H Random Glucose 153 H Calcium 8.2 L <Luz Guerin ROSETTE - Last Filed: 07/29/21 12:57> Progress Note: A&P Assessment and plan (1) Syncope: Status: Acute <ROSETTE Maria Last Filed: 07/29/21 12:57> Assessment and Plan: 2 syncopal events prior to admit with report of dizziness and home BP check in 80s systolic. No prior hx of syncope. No cardiac hx. His EKG did show SR, QTc prolonged at 493ms. Tele monitoring has shows SR without arrythmia. Trop onins normal. BNP normal. CTA chest showed no PE. CT head without acute findings. Tox screen + cocaine. No reports of CP. Tells me that cocaine use was an isolated event a few days prior to his admit. He normally takes Amlodipine, Lisinopril, Chlorthalidone and Metoprolol for BP control. BP initially as low as 100/58. His syncope is likely related to hypotension. His meds had been held with the exception of Metoprolol. BP this am 130/48. His home med list also includes use of Metoclopramide at bedtime. This can prolong QTc interval and should be avoided. Echocardiogram is pending. If no significant abnormalities, then he can be discharged from a cardiology perspective. Pending echo report - recommendations on his antihypertensive use will be given. <ROSETTE Maria - Last Filed: 07/29/21 12:57> (2) Prolonged QT interval: Status: Acute <ROSETTE Maria - Last Filed: 07/29/21 12:57> (3) HTN (hypertension): Status: Acute <ROSETTE Maria - Last Filed: 07/29/21 12:57> Assessment and Plan: Patient seen examined at bedside. He presented with syncope. Blood pressure was low and this is likely related to low blood pressures. Cocaine positive. Echocardiography did not show any wall motion abnormalities or any other concerns. He was advised to stop using cocaine. Amlodipine has been really started. Mildly prolonged QT interval on admission. This can be related cocaine abuse. Other possibility also is reglan. He should not use any regular in the future. Also adding new medications his QT interval should be monitor because he has some tendency to have QT prolongation. Thank you for allowing me to participate in the care of your patient. Please feel free to contact me if you have any questions. <Triston Mas MD - Last Filed: 07/29/21 22:07> Time Spent With Patient Time: Total time spent is greater than 50% in coordination of care (as documented) at patient's floor/unit and/or counseling patient: 22 <ROSETTE Maria - Last Filed: 07/29/21 12:57> Progress Note: Quality Stroke Does the patient have a stroke diagnosis?: No <ROSETTE Maria - Last Filed: 07/29/21 12:57> Procedures Date of Service Date of Service: 07/29/21 <ROSETTE Maria - Last Filed: 07/29/21 12:57>
--- NOTE | 2021-07-29 11:57 | P.DS_ITS ---
DS: Providers Provider Date of Service: 07/29/21 Date of admission: 07/27/21 16:53 Primary care physician: Unknown Physician Consults: 07/28/21 08:17 Consult to Cardiology Routine Consulting Provider: Sarthak Guzman Reason for consultation: syncope, hypotension Has provider been notified: No Attending physician on discharge: Terry Sherwood Discharging clinician: Amelie Topete DS: Diagnosis Discharge Diagnosis (1) Prolonged QT interval: Status: Acute DS: Summary Hospital Course Hospital Course: 46-year-old Faroese-speaking male who presented to the ER after 2 episodes of syncope at home.? He reports that he got up this morning felt dizzy he has his to check his blood sugar but it was normal.? He then asked her to check his blood pressure and it was 80 systolic.? He reports he got up to walk and immediately fell to the ground and lost consciousness.? He reports this lasted a few seconds and then he got back up and went in 1 of his children's room and sat on the bed he reports continued dizziness and 2nd episode of syncope while sitting on the bed.? He woke up he noticed EMT helping him.? He reported that over the last couple weeks he has felt more tired but no recent illness, travel, sick contacts, chest pain, shortness breath, visual changes. He did also report that he had a few beers with his yesterday and was out in the sun.? Apparently in the ER he did have some chest pain that quickly subsided.? Both troponins less than 3.5, BNP less than 10, cocaine positive on urine toxic, negative urinalysis, chest x-ray negative for consolidation or effusion, head CT negative for any acute abnormality.? EKG showed normal sinus rhythm.? In the ER he received 2 L of IV fluids, IV magnesium.? He will be it placed on observation for further management and treatment of syncope. Hypokalemia. Likely related to IV fluids Repleted and resolved Syncope. No further episodes Likely secondary to hypotension? /Dehydration no arrythmia on telemetry orthostatic BP negative IV fluid stopped antihypertensives?held and can resume Thursday if BP allows Echocardiogram showing EF 55-60% with no WMA Hypotension still on the low side home medications held possible reason for syncope continue amlodipine and stop all other antihypertensive medications Diabetes 2 continue home medications Hx of tachycardia stop BB, cocaine use seems likely more frequent than patients report Time Spent with Patient Time attestation: Total time spent providing and/or coordinating discharge services: Discharge coordination time: Greater than 30 minutes Quality: Safe Use of Opioids Does Pt have an Active Cancer Diagnosis on the Problem List?: No Quality: Stroke Does the patient have a stroke diagnosis?: No Physical Exam Vital Signs: Vital Signs: Last Vital Signs Temp 97.4 F 07/29/21 11:41 Pulse 61 07/29/21 11:41 Resp 18 07/29/21 11:41 BP 118/63 07/29/21 11:41 Pulse Ox 97 07/29/21 11:41 O2 Del Method 07/29/21 11:41 BMI result Body Mass Index 42.8 Appearing in no acute distress head is normocephalic atraumatic eyes pupils are PERRLA sclera is anicteric mouth throat mucous membranes are intact and moist neck is supple no lymphadenopathy, no JVD noted lung sounds are clear to auscultation heart regular rate rhythm, clear S1, S2 positive bowel sounds, abdomen is soft, nontender neuro patient is alert x3, no focal deficits DS: Data Data Completed and Pending Labs on day of discharge: Laboratory Results - last 24 hr 07/28/21 07/28/21 07/28/21 13:06 18:00 20:07 Sodium Potassium Chloride Carbon Dioxide Anion Gap BUN Creatinine Estim Creat Clear Calc Estimated GFR POC Glucose 285 H 314 H 188 H Random Glucose Calcium 07/29/21 07/29/21 07/29/21 06:41 07:37 10:56 Sodium 137 Potassium 3.4 Chloride 108 Carbon Dioxide 24 Anion Gap 8 L BUN 10 Creatinine 0.71 Estim Creat Clear Calc 176.6 Estimated GFR > 60 POC Glucose 138 H 232 H Random Glucose 153 H Calcium 8.2 L Discharge Plan Discharge Anticipated Discharge Date/Time: 07/29/21 12:26 Patient Disposition: Home, Self-Care Discharge Diagnosis: Syncope Hypotension Discharge Medications: New amlodipine 5 mg tablet 5 mg PO DAILY Qty: 30 0RF Continued tamsulosin 0.4 mg capsule 0.4 mg PO DAILY 90 Days Qty: 90 2RF acetaminophen [Tylenol Extra Strength] 500 mg tablet 500 mg PO Q6H PRN (Reason: pain or fever) Qty: 20 0RF montelukast 10 mg tablet 1 tab PO BEDTIME insulin lispro [Humalog KwikPen Insulin] 100 unit/mL insulin pen 10 unit subcut DIRECTED Dexilant 60 mg capsule,biphase delayed releas 60 mg PO DAILY (DME) pen needle, diabetic [Unifine Pentips] 32 gauge x /32 needle See Rx Instructions .ROUTE .MEDSUPPLY Qty: 50 Rx Instructions: As directed (DME) lancets [TRUEplus Lancets] 33 gauge misc See Rx Instructions .ROUTE .MEDSUPPLY Qty: 100 Rx Instructions: As directed cholecalciferol (vitamin D3) [Vitamin D3] 25 mcg (1,000 unit) tablet 25 mcg PO DAILY Toujeo SoloStar U-300 Insulin 300 unit/mL (1.5 mL) insulin pen 20 unit subcut DAILY (DME) FreeStyle Lite Strips Strip See Rx Instructions Not Applicable QID Qty: 10 Rx Instructions: As directed Discontinued metoclopramide HCl 5 mg tablet 1 tab PO BEDTIME chlorthalidone 25 mg tablet 25 mg PO DAILY Hold Instructions: Resume on 08/02/21. Resume if blood pressure allows amlodipine 5 mg tablet 5 mg PO DAILY lisinopril 40 mg tablet 40 mg PO DAILY Hold Instructions: Resume on 08/02/21. Resume if blood pressure allows metoprolol succinate 50 mg tablet extended release 24 hr 50 mg PO DAILY Discharge Orders: Discharge Order (Routine); Ordered 07/29/21 Ordered By: Amelie Topete Diet: advance to usual diet Activity on Discharge: As tolerated Stand Alone Forms: Patient Portal Discharge page Care Plan Goals: No further episodes of syncope or hypotension Health Concerns: Syncope hypotension Plan of Treatment: Follow up with your primary care provider regarding your blood pressure medications Check your blood pressure daily and document Assessment: See discharge summary
[2021-07-29] MEDS: Insulin Lispro 100 UNIT/ML 3 ML VIAL SUBCUT (12:25)
--- NOTE | 2021-07-29 12:39 | MHC.CM.PN ---
pt dcd home no skilled services ordered by
[2021-07-29 13:28] LABS: Appearance Urine CLEAR; Color Urine YELLOW; Glucose Urine UA >=1000 MG/DL (NEG); Leukocyte Esterase Urine NEG (NEG); Nitrite Urine NEG (NEG); Specific Gravity - Urine 1.015 (1.005-1.025); Urine Blood NEG (NEG); Urine Ketones NEG (NEG); Urine Protein NEG (NEG-TRACE)
[2021-07-29 13:59] LABS: RBC Urine 0 /HPF (0); Squamous Epithelial Cell Urine 1+ /LPF; WBC Urine 0 /HPF (0-4)
== END 2021-07-29 14:41 | disposition home or self-care (01) ==
LOC: HO.ED 16:39 → HO.EDOVER 17:10 → HO.IMC 07-29 07:26
PROVIDERS: Physician Assistant; Admitting Provider Nurse Practitioner Acute Care; Emergency Provider Internal Medicine; Responsible Provider Nurse Practitioner Acute Care; Visit Provider Family Medicine
DX: R55 Syncope and collapse (principal); I45.81 Long QT syndrome; I95.9 Hypotension, unspecified; R07.9 Chest pain, unspecified; R53.1 Weakness; I10 Essential (primary) hypertension; E11.9 Type 2 diabetes mellitus without complications; F41.8 Other specified anxiety disorders; E66.9 Obesity, unspecified; G47.33 Obstructive sleep apnea (adult) (pediatric); J98.11 Atelectasis; K74.60 Unspecified cirrhosis of liver; K21.9 Gastro-esophageal reflux disease without esophagitis; F14.90 Cocaine use, unspecified, uncomplicated; Z87.891 Personal history of nicotine dependence; Z68.41 Body mass index [BMI] 40.0-44.9, adult; Z20.822 Contact with and (suspected) exposure to COVID-19; Z88.8 Allergy status to other drugs, medicaments and biological substances; Z99.89 Dependence on other enabling machines and devices; Z79.4 Long term (current) use of insulin; Z79.899 Other long term (current) drug therapy
CPT/HCPCS: 36415; 70450; 71045; 71275; 80048; 80076; 80307; 81001; 81003; 82947; 83735; 83880; 84484; 85025; 85379; 85610; 87635; 93005; 93306; 94660; 99205; 99219; 99285; J1650; J3475; Q9957; Q9967

== ENCOUNTER 2021-08-09 14:03 | Outpatient (AMB) | payer MEDICAID, SELFPAY ==
--- NOTE | 2021-08-09 14:15 | MHC.OFFVIS ---
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 Accompanied by: Self / Same As Patient Allergies ranitidine [From ZANTAC] Allergy (Severe, Verified 03/23/23 11:32) DIFFICULTY BREATHING, ITCHING Medication List - Last Reconciled 08/09/21 by Dao Keith MD acetaminophen (Tylenol Extra Strength) 500 mg PO Q6H PRN albuterol sulfate 90 mcg/actuation (ProAir HFA) 2 puffs inhalation Q4-6H PRN amlodipine 5 mg PO DAILY blood sugar diagnostic (FreeStyle Lite Strips) As directed cetirizine 10 mg PO BEDTIME chlorthalidone 25 mg PO QAM cholecalciferol (vitamin D3) (Vitamin D3) 25 mcg PO DAILY dexlansoprazole (Dexilant) 60 mg PO DAILY fluticasone propionate 50 mcg/actuation 1 spray intranasal DAILY fluticasone propionate 110 mcg/actuation (Flovent HFA) 1 puff PO BID gabapentin 100 mg PO TID glipizide 5 mg PO BID insulin aspart U-100 10 units subcut DIRECTED insulin glargine U-300 conc (Toujeo SoloStar U-300 Insulin) 20 units subcut DAILY insulin lispro (Humalog KwikPen (U-100) Insulin) 10 units subcut DIRECTED lancets (TRUEplus Lancets) As directed lidocaine 5% (Lidoderm) 0 patches topical lisinopril 40 mg PO QPM metoclopramide HCl 5 mg PO BEDTIME metoprolol succinate ER 50 mg PO QAM montelukast 1 tab PO BEDTIME pen needle, diabetic (Unifine Pentips) As directed tamsulosin 0.4 mg PO DAILY 90 days tramadol 50 mg PO Q12H PRN HPI HPI Comments History of Present Illness Details Christian is a pleasant male. He is a patient of Dr. Cassidy. He seen for the following urologic conditions - erectile dysfunction with insulin-dependent diabetic - BPH Telemedicine evaluation 15 minute consultation Slovenian translation provided by qualified administrative medical director add on demand viagra to 10mg tadalafil Erectile dysfunction - Diabetes insulin dependent Previously on intermittent sildenafil Moderately good resolved with 10 mg Cialis Lower urinary tract symptoms Has been on Flomax with adequate response Still feeling he has hesitancy with urination Had seen blood in his urine needs ultrasound Family history prostate cancer PSA 11/05 0.3 May review at periodic intervals [facility] Medical History Morbid obesity Gross hematuria Lipoma of neck On beta alma at home History of tachycardia Subcutaneous mass of neck Obesity Hx of gastritis History of anxiety History of depression COVID-19 Colitis Gallstones Asthma HTN (hypertension) Fatty liver Dysuria Arthritis Diabetes GERD (gastroesophageal reflux disease) OLIVER on CPAP Chronic back pain Cirrhosis Surgical History Hx of elbow surgery S/P cubital tunnel release History of esophagogastroduodenoscopy (EGD) History of left knee surgery Family History Father No problems noted. Mother HTN (hypertension) Sister Type II diabetes mellitus Social History Are you a primary resident care director to a significant other at home: No Do you presently have visiting nurse or other home services: No Alcohol intake: current Alcohol intake frequency: holidays/special occasions only Alcohol type: beer Patient Tobacco Use Status: Current someday Tobacco user Tobacco use type: Cigarette Substance Use Type: Marijuana Advance Directives: No Advance Directives Information Provided: No service: No Current occupational status: unemployed and disabled Review of Systems Const All systems reviewed & are unremarkable except as noted in HPI and below Reports no additional complaints Resp Reports no additional complaints GI Reports no additional complaints Reports as per HPI Musc Reports no additional complaints Physical Exam Telemedicine evaluation Appropriate responses Regular breathing rate and rhythm HEENT Head: Yes normal to inspection Ears: hearing grossly normal bilaterally Eyes General: appearance normal, both eyes and all related structures Neck Neck: Yes normal visual inspection Chest Chest palpation & inspection: normal inspection of the chest Resp Effort & Inspection: normal respiratory effort and able to speak in complete sentences Assessment & Plan Assessment & Plan (1) Erectile dysfunction associated with type 2 diabetes mellitus: Code(s): E11.69 - Type 2 diabetes mellitus with other specified complication; N52.1 - Erectile dysfunction due to diseases classified elsewhere (2) BPH w urinary obs/LUTS: Code(s): N40.1 - Benign prostatic hyperplasia with lower urinary tract symptoms; N13.8 - Other obstructive and reflux uropathy Plan Six-month follow-up Medications: New tadalafil 10 mg PO DAILY 90 tabs 1RF sexual activity 90 days E11.69 - Type 2 diabetes mellitus with other specified complication, N52.1 - Erectile dysfunction due to diseases classified elsewhere Patient Instructions: Imaging studies, laboratory and physical exam results were discussed and reviewed in detail. No major barriers to patient understanding were identified. An opportunity to ask questions regarding the treatment plan was provided. All questions were answered. The patient expressed understanding and agreement with the above treatment plan. The patient is aware they should contact our office by phone for worsening of their current condition or the appearance of new urologic symptoms. Compliance is encouraged with any medications and followup testing that is ordered. It is a privilege to participate in the urologic care of your patient. If you have any questions or concerns regarding treatment for the above conditions, or other urologic issues, please do not hesitate to contact me. The office telephone contact is [phone]. This note is constructed using voice recognition software. While every effort has been made to ensure accuracy head resident errors may have been included. Yours sincerely, Dr Dao Keith MD, [facility] - Urology Providers of Expert, Compassionate Care for the Genitourinary System Telehealth Telehealth Location of provider rendering services: practice address Location of patient: address on file Patient Identification confirmed using: Name, : Yes Telehealth method: voice only Patient verbally consented to treatment: Yes Patient verbally consented to billing insurance company: Yes Patient informed of any privacy concerns related to visit: Yes Coding Level of Care Code Tele Est Pt Level 3 (95880) Diagnoses Erectile dysfunction associated with type 2 diabetes mellitus E11.69; N52.1 BPH w urinary obs/LUTS N40.1; N13.8
== END 2021-08-09 16:15 | disposition home or self-care (01) ==
LOC: HO.HUSH 14:03
PROVIDERS: PCP Family Medicine; Visit Provider Urology
DX: E11.69 Type 2 diabetes mellitus with other specified complication (principal); N52.1 Erectile dysfunction due to diseases classified elsewhere; N40.1 Benign prostatic hyperplasia with lower urinary tract symptoms; N13.8 Other obstructive and reflux uropathy
CPT/HCPCS: 99499

== ENCOUNTER 2021-09-23 12:37 | Emergency (ER) | payer MEDICAID, SELFPAY ==
[2021-09-23 13:00] VITALS: BP 135/75; PULSE 104; RESP 16; TEMP 36.7; O2SAT 96
== END 2021-09-23 14:17 | disposition left against medical advice (07) ==
PROVIDERS: Emergency Provider Emergency Medicine; PCP Family Medicine
DX: I95.9 Hypotension, unspecified (principal); E11.9 Type 2 diabetes mellitus without complications

== ENCOUNTER 2021-11-26 18:32 | Emergency (ER) | payer MEDICAID, SELFPAY ==
--- NOTE | ~2021-11-26 | XR_ITS ---
EXAMINATION: XR CHEST CLINICAL INFORMATION: Shortness of breath, Covid positive COMPARISON: CTA chest on 07/27/2021 TECHNIQUE: Frontal view of the chest was obtained. FINDINGS: No significant abnormality is noted involving the heart, lungs, mediastinum, bony thorax or soft tissues. XR/XR chest 1V IMPRESSION: Unremarkable examination.
--- NOTE | ~2021-11-26 | CT_ITS ---
EXAMINATION: CT ABDOMEN AND PELVIS WITHOUT CONTRAST CLINICAL INFORMATION: Flank pain COMPARISON: MRI 05/09/2021 TECHNIQUE: Multidetector volumetric imaging was performed from the superior aspect of the liver through the pubic symphysis. Sagittal and coronal reformatted images were obtained on the technologist's workstation. This CT examination was performed using dose optimization techniques as appropriate, variously including the following: *Automated exposure control *Adjustment of mA and/or kV according to patient size (this includes techniques or standardized protocols for targeted exams where dose is matched to indication/reason for exam; i.e. extremities or head) *Use of iterative reconstruction technique DLP: 965 mGy-cm FINDINGS: LUNG BASES: The visualized lung bases are unremarkable. LIVER, GALLBLADDER, AND BILIARY TREE: The liver demonstrates a nodular contour consistent with cirrhosis. Limited assessment for focal lesion without intravenous contrast. No biliary ductal dilatation. Cholelithiasis is noted. PANCREAS: Unremarkable. SPLEEN: Enlarged, measuring 19 cm in the axial plane. ADRENAL GLANDS: Unremarkable. KIDNEYS AND URETERS: The kidneys are normal in size, shape, and attenuation. No hydronephrosis, hydroureter, or calculi seen. No perinephric stranding. BLADDER: Unremarkable. GASTROINTESTINAL TRACT: The small and large bowel are unremarkable. The appendix is unremarkable. No free fluid or free air is seen. ABDOMINAL WALL: No significant hernia is appreciated. LYMPH NODES: Normal. VASCULAR: Unremarkable. PELVIC VISCERA: Unremarkable. OSSEOUS STRUCTURES: Degenerative changes are noted in the spine. CT/CT abdomen pelvis wo IV con IMPRESSION: 1. No hydronephrosis or obstructing calculus. 2. Cirrhosis and splenomegaly. 3. Cholelithiasis.
[2021-11-26 19:01] VITALS: BP 146/77; PULSE 86; RESP 20; TEMP 37.2; O2SAT 98; BMI 43.3
[2021-11-26 20:10] LABS: Basophils Percent Auto 0.4 % (0-2); Hematocrit 40.9 % (42.0-52.0); Imm Gran Abs Auto 0.01 X10*3/uL (0.00-0.03); Imm Gran Pct Auto 0.2 % (0.0-0.4); Lymphocytes Absolute Auto 1.3 X10*3/uL (1.2-4.9); MANUAL DIFF FLAG SCAN; Mean Corpuscular Volume 97.4 fL (80.0-98.0); PLT CLUMP 1; SCAN SMEAR FLAG 1
[2021-11-26 20:11] LABS: Appearance Urine Clear; Color Urine Yellow; Glucose Urine UA >=1000 mg/dL (Negative); Leukocyte Esterase Urine Negative (Negative); Nitrite Urine Negative (Negative); Specific Gravity - Urine >= 1.030 (1.005-1.025); UMIC TRIGGER UACC YES; Urine Blood Negative (Negative); Urine Ketones Negative (Negative); Urine Protein Negative (Neg-Trace)
[2021-11-26 20:12] LABS: Eosinophils Absolute Auto 0.1 X10*3/uL (0.0-0.4); Hemoglobin 13.9 g/dl (14.0-18.0); Lymphocytes Percent Auto 25.9 % (20-40); Mean Corpuscular Hemoglobin 33.1 pg (27.0-33.0); Mean Platelet Volume 10.4 fL (9.4-12.4); Monocytes Absolute Auto 0.8 X10*3/uL (0.1-1.2); Monocytes Percent Auto 16.2 % (2-11); Neutrophils Absolute Auto 2.8 x10*3/uL (2.0-8.3); Neutrophils Percent Auto 55.3 % (45-73); Red Cell Distribution Width 14.5 % (11.0-16.0)
[2021-11-26 20:16] LABS: Bacteria Urine None Seen (None Seen); Hyaline Casts Urine 0-2 /LPF (0-2); RBC Urine 0-2 /HPF (0-2); Squamous Epithelial Cell Urine 0-2 /HPF (0-2); WBC Urine 0-5 /HPF (0-5)
[2021-11-26 20:18] LABS: COVID-19 Test Positive (Negative); IDNOW Serial# 16C4AD1C
[2021-11-26 20:22] LABS: Anion Gap 11 (12-20); Blood Urea Nitrogen 6 mg/dL (9-16); Calcium 8.6 mg/dL (8.4-10.2); Carbon Dioxide 27 mmol/L (22-29); Chloride 103 mmol/L (96-108); Creatinine Clr Calc Pharmacy 124.8; Estimated Glomerular Filt Rate > 60; Glucose Random 249 mg/dL (60-115); Sodium 137 mmol/L (135-145)
[2021-11-26 20:46] LABS: White Blood Count 5.1 X10*3/uL (4.8-10.8)
[2021-11-26 20:47] LABS: Platelet Count 97 X10*3/uL (160-400); SLIDE REVIEW VERIFIED
--- NOTE | 2021-11-27 00:14 | ED_ITS ---
HPI - Abdominal Pain General Chief Complaint: Abdominal Pain <Macy Knapp NP - Last Filed: 11/27/21:31> Stated Complaint: R Abdominal pain, COVID + <Macy Knapp NP - Last Filed: 11/27/21:31> Time Seen by Provider: 11/27/21 00:12 <Macy Knapp NP - Last Filed: 11/27/21:31> Source: patient <Macy Knapp NP - Last Filed: 11/27/21:31> Mode of arrival: ambulatory <Macy Knapp NP - Last Filed: 11/27/21:31> Limitations: no limitations <Macy Knapp NP - Last Filed: 11/27/21:31> History of Present Illness HPI narrative: 46-year-old male presents with 2 weeks of right lower quadrant abdominal pain radiating to his flank. He does state to have a history of kidney stones. He did test positive for COVID yesterday, has had subjective fevers, chills, and upper respiratory symptoms. He did report some shortness of breath today, but resolves with rest. He does not describe chest pain, chest pressure, palpitations, abdominal distention, edema, weakness or changes in vision. <Macy Knapp NP - Last Filed: 11/27/21:31> MD elicited complaint: abdominal pain and flank pain <Macy Knapp NP - Last Filed: 11/27/21:31> Pertinent past history: kidney stones <Macy Knapp NP - Last Filed: 11/27/21:31> Onset (ago): week(s) (2) <Macy Knapp NP - Last Filed: 11/27/21:31> Pain Consistency: constant and colicky <Macy Knapp NP - Last Filed: 11/27/21:31> Location: RLQ and R flank <Macy Knapp NP - Last Filed: 11/27/21:31> Severity: moderate <Macy Knapp NP - Last Filed: 11/27/21:31> Pain scale (0-10): 6 <Macy Knapp NP - Last Filed: 11/27/21 01:31> Quality: stabbing <Macy Knapp NP - Last Filed: 11/27/21 01:31> Radiation: none <Macy Knapp NP - Last Filed: 11/27/21 01:31> Migration to: no migration <Macy Knapp NP - Last Filed: 11/27/21 01:31> Exacerbating factors: movement <Macy Knapp NP - Last Filed: 11/27/21 01:31> Relieving factors: rest <Macy Knapp NP - Last Filed: 11/27/21 01:31> Context: sick contacts <Macy Knapp NP - Last Filed: 11/27/21 01:31> Associated symptoms: denies other symptoms <Macy Knapp NP - Last Filed: 11/27/21 01:31> Related Data Home Medications: Home Medications Medication Instructions Recorded Confirmed cholecalciferol (vitamin D3) 25 25 mcg PO DAILY 11/15/19 07/27/21 mcg (1,000 unit) tablet (Vitamin D3) dexlansoprazole 60 mg 60 mg PO DAILY 11/15/19 07/27/21 capsule,biphase delayed release (Dexilant) lancets 33 gauge (TRUEplus Lancets) #100 ea 11/15/19 12/27/20 pen needle, diabetic 32 gauge x #50 ea 11/15/19 12/27/20/32 (Unifine Pentips) montelukast 10 mg tablet 1 tab PO BEDTIME 08/13/20 07/27/21 insulin lispro 100 unit/mL 10 unit subcut DIRECTED 09/26/20 12/27/20 subcutaneous pen (Humalog KwikPen (U-100) Insulin) blood sugar diagnostic (FreeStyle #10 ea 05/03/21 Lite Strips) insulin glargine U-300 conc 300 20 unit subcut DAILY 05/03/21 07/27/21 unit/mL (1.5 mL) subcutaneous pen (Toujeo SoloStar U-300 Insulin) albuterol sulfate 90 mcg/actuation 2 puff inhalation Q4-6H PRN dyspnea 08/09/21 08/09/21 aerosol inhaler (ProAir HFA) cetirizine 10 mg tablet 10 mg PO BEDTIME 08/09/21 08/09/21 chlorthalidone 25 mg tablet 25 mg PO QAM 08/09/21 08/09/21 fluticasone propionate 110 1 puff PO BID 08/09/21 08/09/21 mcg/actuation HFA aerosol inhaler (Flovent HFA) fluticasone propionate 50 1 spray intranasal DAILY 08/09/21 08/09/21 mcg/actuation nasal spray,suspension gabapentin 100 mg capsule 100 mg PO TID 08/09/21 08/09/21 glipizide 5 mg tablet 5 mg PO BID 08/09/21 08/09/21 insulin aspart U-100 100 unit/mL 10 unit subcut DIRECTED 08/09/21 08/09/21 (3 mL) subcutaneous pen lidocaine 5 % topical patch 0 patch topical 08/09/21 08/09/21 (Lidoderm) lisinopril 40 mg tablet 40 mg PO QPM 08/09/21 08/09/21 metoclopramide HCl 5 mg tablet 5 mg PO BEDTIME 08/09/21 08/09/21 metoprolol succinate 50 mg 50 mg PO QAM 08/09/21 08/09/21 tablet,extended release 24 hr tramadol 50 mg tablet 50 mg PO Q12H PRN 08/09/21 08/09/21 Previous Rx's Medication Instructions Recorded acetaminophen 500 mg tablet 500 mg PO Q6H PRN pain or fever 12/24/19 (Tylenol Extra Strength) #20 tabs tamsulosin 0.4 mg capsule 0.4 mg PO DAILY 90 days #90 caps 02/25/21 amlodipine 5 mg tablet 5 mg PO DAILY #30 tabs 07/29/21 tadalafil 10 mg tablet 10 mg PO DAILY sexual activity 90 08/09/21 days #90 tabs <Macy Knapp CLINICAL CARE COORDINATOR - Last Filed: 11/27/21 01:31> Allergies/Adverse Reactions: Allergies Allergy/AdvReac Type Severity Reaction Status Date / Time ranitidine [From ZANTAC] Allergy Severe DIFFICULTY Verified 08/09/21 14:15 BREATHING, ITCHING <Macy Knapp NP - Last Filed: 11/27/21 01:31> Review of Systems Review of Systems Constitutional: Positive subjective Fever, No Chills ENT/Mouth: No Ear Pain, No Hoarseness, No sore throat Eyes: No Eye Pain, No Swelling, No Redness, No Foreign Body Cardiovascular: No Chest Pain, positive SOB Respiratory: No Cough, No Dyspnea Gastrointestinal: No Nausea, No Vomiting, No Diarrhea, positive abdominal Pain Genitourinary: No Dysuria, No Hematuria Musculoskeletal: No joint pain, No Myalgias, No Joint Swelling Skin: No Skin lacerations, No rash Neuro: No Weakness, No Numbness, No Paresthesias, No Loss of Consciousness, No Dizziness, No Headache Psych: No Anxiety/Panic, No Depression Heme/Lymph: no easy bruising, no Lymphadenopathy Endocrine: No Polyuria, No Polydipsia <Macy Knapp NP - Last Filed: 11/27/21:31> Yes all other systems are reviewed and are negative <Macy Knapp NP - Last Filed: 11/27/21:31> [facility] Past Medical History Attestation statement: The following information was validated with the patient. <Macy Knapp NP - Last Filed: 11/27/21:31> Source: old records reviewed <Macy Knapp NP - Last Filed: 11/27/21:31> Medical History: Medical History Arthritis Asthma Chronic back pain Cirrhosis Colitis COVID-19 Diabetes Dysuria Fatty liver GERD (gastroesophageal reflux disease) History of anxiety History of depression History of tachycardia HTN (hypertension) Hx of gastritis Lipoma of neck Obesity On beta alma at home OLIVER on CPAP Subcutaneous mass of neck <Macy Knapp NP - Last Filed: 11/27/21:31> Surgical History: Surgical History History of esophagogastroduodenoscopy (EGD) History of left knee surgery Hx of elbow surgery S/P cubital tunnel release <Macy Knapp NP - Last Filed: 11/27/21:31> Family History Family History: Family History Father No problems noted. Mother HTN (hypertension) Sister Type II diabetes mellitus <Macy Knapp NP - Last Filed: 11/27/21 01:31> Social History Social History: Social History Are you a primary career advisor to a significant other at home: No Do you presently have visiting nurse or other home services: No Alcohol intake: current Alcohol intake frequency: a few times a month Alcohol type: beer Patient Tobacco Use Status: Current someday Tobacco user Tobacco use type: Cigarette Advance Directives: No Advance Directives Information Provided: No service: No Current occupational status: unemployed and disabled <Macy Knapp NP - Last Filed: 11/27/21 01:31> Physical Exam ED Vital Signs: Vital Signs - 24 hr 11/26/21 19:01 11/27/21 00:18 11/27/21 01:41 Temperature 99.0 F 98.9 F 99.2 F Pulse Rate 86 86 85 Respiratory Rate 20 10 L 12 Blood Pressure 146/77 H 147/81 H 137/82 Pulse Oximetry 98 96 99 Oxygen Delivery Method Room Air Room Air Room Air BMI result Body Mass Index 43.3 <Macy Knapp NP - Last Filed: 11/27/21 01:31> Vital Signs - 24 hr 11/26/21 19:01 11/27/21 00:18 11/27/21 01:41 Temperature 99.0 F 98.9 F 99.2 F Pulse Rate 86 86 85 Respiratory Rate 20 10 L 12 Blood Pressure 146/77 H 147/81 H 137/82 Pulse Oximetry 98 96 99 Oxygen Delivery Method Room Air Room Air Room Air BMI result Body Mass Index 43.3 <Bo Mathur MD - Last Filed: 11/27/21 03:15> Appearance: Alert. Oriented X3. No acute distress. Eyes: Pupils equal, round and reactive to light. ENT: Pharynx normal. Neck: Normal inspection. Neck supple. CVS: Normal heart rate and rhythm. Pulses normal. Respiratory: No respiratory distress. Breath sounds normal. Abdomen: Soft and nontender. Obese. Right CVA tenderness noted. Skin: Skin warm and dry. Normal skin color. Normal skin turgor. Extremities: No lower extremity edema. Gait well-balanced well coordinated. Neuro: No motor deficit. No sensory deficit. Cranial nerves 2-12 intact. <Macy Knapp NP - Last Filed: 11/27/21 01:31> Course Course Course Narrative: 48-year-old male presents for multiple complaints. First, he has had right lower quadrant abdominal pain radiating to his back and flank for approximately 2 weeks. He does have a history of kidney stones and feels that this is the similar kind of pain. The pain is intermittent, colicky, and sharp at times. He does not report any hematuria, or dysuria. Second complaint is that he is COVID positive, tested COVID positive yesterday. He was feeling feverish, had some chills, and was short of breath starting on Thursday. Patient is able to speak in complete sentences, has even unlabored respirations, has an O2 sat of 99% on room air. He does not describe chest pain or pressure, palpitations, pain on inspiration, or edema. Labs were drawn while he was in the emergency department waiting room. His COVID test is positive, platelets are 97, he has had chronically low platelets, but today he is much lower than normal. This could possibly be due to his COVID-19 diagnosis. H&H is within normal limits, glucose is 249. He has been taking his insulin on a regular basis elevated glucose could be due to illness, he does not exhibit any signs or symptoms hyperglycemia at this time. Urinalysis is negative. Chest x-ray is negative for acute findings requiring emergent intervention patient is stable, is not in any respiratory distress, afebrile and nontoxic. Will order CT scan to rule out kidney stone. Patient has right-sided CVA tenderness, no abdominal pain or tenderness to palpation. Negative Hdz's and McBurney's. Low likelihood of appendicitis at this time however patient has not had abdominal surgery in the past. 01:30 CT scan pending. Sign out to Dr. 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 <Macy Knapp NP - Last Filed: 11/27/21 01:31> Lab Data Attestation: I reviewed the patient's lab results. <Macy Knapp NP - Last Filed: 11/27/21 01:31> Result diagrams: : 11/26/21 20:04 11/26/21 20:04 <Macy Knapp NP - Last Filed: 11/27/21 01:31> Labs: Lab Results 11/26/21 11/26/21 11/26/21 Range/Units 20:04 20:04 20:04 WBC 5.1 (4.8-10.8) X10*3/uL RBC 4.20 L (4.60-5.80) X10*6/uL Hgb 13.9 L (14.0-18.0) g/dl Hct 40.9 L (42.0-52.0) % MCV 97.4 (80.0-98.0) fL MCH 33.1 H (27.0-33.0) pg MCHC 34.0 (31.0-36.0) g/dl RDW 14.5 (11.0-16.0) % Plt Count 97 L (160-400) X10*3/uL MPV 10.4 (9.4-12.4) fL Immature Gran % (Auto) 0.2 (0.0-0.4) % Neut % (Auto) 55.3 (45-73) % Lymph % (Auto) 25.9 (20-40) % [place] % (Auto) 16.2 H (2-11) % Eos % (Auto) 2.0 (0-4) % Baso % (Auto) 0.4 (0-2) % Lymph # (Auto) 1.3 (1.2-4.9) X10*3/uL [place] # (Auto) 0.8 (0.1-1.2) X10*3/uL Eos # (Auto) 0.1 (0.0-0.4) X10*3/uL Baso # (Auto) 0.0 (0.0-0.2) X10*3/uL Abs Immat Gran (auto) 0.01 (0.00-0.03) X10*3/uL Absolute Neuts (auto) 2.8 (2.0-8.3) x10*3/uL Absolute Nucleated RBC 0.000 (0.0-0.012) X10*3/uL Nucleated RBC % (auto) 0.0 (0.0-0.2) /100WBC Smear Tech's Comments VERIFIED Sodium 137 (135-145) mmol/L Potassium 4.0 (3.3-5.1) mmol/L Chloride 103 (96-108) mmol/L Carbon Dioxide 27 (22-29) mmol/L Anion Gap 11 L (12-20) BUN 6 L (9-16) mg/dL Creatinine 0.98 (0.5-1.4) mg/dL Estim Creat Clear Calc 124.8 Estimated GFR > 60 Random Glucose 249 H D (60-115) mg/dL Calcium 8.6 (8.4-10.2) mg/dL Total Bilirubin 0.9 (0.0-1.0) mg/dL Direct Bilirubin 0.4 (0.0-0.5) mg/dL AST 63 H (5-37) U/L ALT 53 H (0-40) U/L Alkaline Phosphatase 119 H D (39-117) U/L Total Protein 7.6 (6.5-8.0) g/dL Albumin 3.3 L (3.5-5.0) g/dL Urine Color Urine Appearance Urine pH (5.0-9.0) Ur Specific [place] (1.005-1.025) Urine Protein (Neg-Trace) mg/dL Urine Glucose (UA) (Negative) mg/dL Urine Ketones (Negative) mg/dL Urine Blood (Negative) Urine Nitrite (Negative) Ur Leukocyte Esterase (Negative) Urine RBC (0-2) /HPF Urine WBC (0-5) /HPF Ur Squamous Epith Cells (0-2) /HPF Urine Bacteria (None Seen) Hyaline Casts (0-2) /LPF COVID-19 (SEDA) Positive A (Negative) COVID-19 Clin Com See Note 11/26/21 Range/Units 20:04 WBC (4.8-10.8) X10*3/uL RBC (4.60-5.80) X10*6/uL Hgb (14.0-18.0) g/dl Hct (42.0-52.0) % MCV (80.0-98.0) fL MCH (27.0-33.0) pg MCHC (31.0-36.0) g/dl RDW (11.0-16.0) % Plt Count (160-400) X10*3/uL MPV (9.4-12.4) fL Immature Gran % (Auto) (0.0-0.4) % Neut % (Auto) (45-73) % Lymph % (Auto) (20-40) % [place]rie % (Auto) (2-11) % Eos % (Auto) (0-4) % Baso % (Auto) (0-2) % Lymph # (Auto) (1.2-4.9) X10*3/uL [place] # (Auto) (0.1-1.2) X10*3/uL Eos # (Auto) (0.0-0.4) X10*3/uL Baso # (Auto) (0.0-0.2) X10*3/uL Abs Immat Gran (auto) (0.00-0.03) X10*3/uL Absolute Neuts (auto) (2.0-8.3) x10*3/uL Absolute Nucleated RBC (0.0-0.012) X10*3/uL Nucleated RBC % (auto) (0.0-0.2) /100WBC Smear Tech's Comments Sodium (135-145) mmol/L Potassium (3.3-5.1) mmol/L Chloride (96-108) mmol/L Carbon Dioxide (22-29) mmol/L Anion Gap (12-20) BUN (9-16) mg/dL Creatinine (0.5-1.4) mg/dL Estim Creat Clear Calc Estimated GFR Random Glucose (60-115) mg/dL Calcium (8.4-10.2) mg/dL Total Bilirubin (0.0-1.0) mg/dL Direct Bilirubin (0.0-0.5) mg/dL AST (5-37) U/L ALT (0-40) U/L Alkaline Phosphatase (39-117) U/L Total Protein (6.5-8.0) g/dL Albumin (3.5-5.0) g/dL Urine Color Yellow Urine Appearance Clear Urine pH 7.0 (5.0-9.0) Ur Specific [place] >= 1.030 H (1.005-1.025) Urine Protein Negative (Neg-Trace) mg/dL Urine Glucose (UA) >=1000 H (Negative) mg/dL Urine Ketones Negative (Negative) mg/dL Urine Blood Negative (Negative) Urine Nitrite Negative (Negative) Ur Leukocyte Esterase Negative (Negative) Urine RBC 0-2 (0-2) /HPF Urine WBC 0-5 (0-5) /HPF Ur Squamous Epith Cells 0-2 (0-2) /HPF Urine Bacteria None Seen (None Seen) Hyaline Casts 0-2 (0-2) /LPF COVID-19 (SEDA) (Negative) COVID-19 Clin Com <Macy Knapp NP - Last Filed: 11/27/21 01:31> Lab Results 11/26/21 11/26/21 11/26/21 Range/Units 20:04 20:04 20:04 WBC 5.1 (4.8-10.8) X10*3/uL RBC 4.20 L (4.60-5.80) X10*6/uL Hgb 13.9 L (14.0-18.0) g/dl Hct 40.9 L (42.0-52.0) % MCV 97.4 (80.0-98.0) fL MCH 33.1 H (27.0-33.0) pg MCHC 34.0 (31.0-36.0) g/dl RDW 14.5 (11.0-16.0) % Plt Count 97 L (160-400) X10*3/uL MPV 10.4 (9.4-12.4) fL Immature Gran % (Auto) 0.2 (0.0-0.4) % Neut % (Auto) 55.3 (45-73) % Lymph % (Auto) 25.9 (20-40) % [place] % (Auto) 16.2 H (2-11) % Eos % (Auto) 2.0 (0-4) % Baso % (Auto) 0.4 (0-2) % Lymph # (Auto) 1.3 (1.2-4.9) X10*3/uL [place] # (Auto) 0.8 (0.1-1.2) X10*3/uL Eos # (Auto) 0.1 (0.0-0.4) X10*3/uL Baso # (Auto) 0.0 (0.0-0.2) X10*3/uL Abs Immat Gran (auto) 0.01 (0.00-0.03) X10*3/uL Absolute Neuts (auto) 2.8 (2.0-8.3) x10*3/uL Absolute Nucleated RBC 0.000 (0.0-0.012) X10*3/uL Nucleated RBC % (auto) 0.0 (0.0-0.2) /100WBC Smear Tech's Comments VERIFIED Sodium 137 (135-145) mmol/L Potassium 4.0 (3.3-5.1) mmol/L Chloride 103 (96-108) mmol/L Carbon Dioxide 27 (22-29) mmol/L Anion Gap 11 L (12-20) BUN 6 L (9-16) mg/dL Creatinine 0.98 (0.5-1.4) mg/dL Estim Creat Clear Calc 124.8 Estimated GFR > 60 Random Glucose 249 H D (60-115) mg/dL Calcium 8.6 (8.4-10.2) mg/dL Total Bilirubin 0.9 (0.0-1.0) mg/dL Direct Bilirubin 0.4 (0.0-0.5) mg/dL AST 63 H (5-37) U/L ALT 53 H (0-40) U/L Alkaline Phosphatase 119 H D (39-117) U/L Total Protein 7.6 (6.5-8.0) g/dL Albumin 3.3 L (3.5-5.0) g/dL Urine Color Urine Appearance Urine pH (5.0-9.0) Ur Specific [place] (1.005-1.025) Urine Protein (Neg-Trace) mg/dL Urine Glucose (UA) (Negative) mg/dL Urine Ketones (Negative) mg/dL Urine Blood (Negative) Urine Nitrite (Negative) Ur Leukocyte Esterase (Negative) Urine RBC (0-2) /HPF Urine WBC (0-5) /HPF Ur Squamous Epith Cells (0-2) /HPF Urine Bacteria (None Seen) Hyaline Casts (0-2) /LPF COVID-19 (SEDA) Positive A (Negative) COVID-19 Clin Com See Note 11/26/21 Range/Units 20:04 WBC (4.8-10.8) X10*3/uL RBC (4.60-5.80) X10*6/uL Hgb (14.0-18.0) g/dl Hct (42.0-52.0) % MCV (80.0-98.0) fL MCH (27.0-33.0) pg MCHC (31.0-36.0) g/dl RDW (11.0-16.0) % Plt Count (160-400) X10*3/uL MPV (9.4-12.4) fL Immature Gran % (Auto) (0.0-0.4) % Neut % (Auto) (45-73) % Lymph % (Auto) (20-40) % [place] % (Auto) (2-11) % Eos % (Auto) (0-4) % Baso % (Auto) (0-2) % Lymph # (Auto) (1.2-4.9) X10*3/uL [place] # (Auto) (0.1-1.2) X10*3/uL Eos # (Auto) (0.0-0.4) X10*3/uL Baso # (Auto) (0.0-0.2) X10*3/uL Abs Immat Gran (auto) (0.00-0.03) X10*3/uL Absolute Neuts (auto) (2.0-8.3) x10*3/uL Absolute Nucleated RBC (0.0-0.012) X10*3/uL Nucleated RBC % (auto) (0.0-0.2) /100WBC Smear Tech's Comments Sodium (135-145) mmol/L Potassium (3.3-5.1) mmol/L Chloride (96-108) mmol/L Carbon Dioxide (22-29) mmol/L Anion Gap (12-20) BUN (9-16) mg/dL Creatinine (0.5-1.4) mg/dL Estim Creat Clear Calc Estimated GFR Random Glucose (60-115) mg/dL Calcium (8.4-10.2) mg/dL Total Bilirubin (0.0-1.0) mg/dL Direct Bilirubin (0.0-0.5) mg/dL AST (5-37) U/L ALT (0-40) U/L Alkaline Phosphatase (39-117) U/L Total Protein (6.5-8.0) g/dL Albumin (3.5-5.0) g/dL Urine Color Yellow Urine Appearance Clear Urine pH 7.0 (5.0-9.0) Ur Specific [place] >= 1.030 H (1.005-1.025) Urine Protein Negative (Neg-Trace) mg/dL Urine Glucose (UA) >=1000 H (Negative) mg/dL Urine Ketones Negative (Negative) mg/dL Urine Blood Negative (Negative) Urine Nitrite Negative (Negative) Ur Leukocyte Esterase Negative (Negative) Urine RBC 0-2 (0-2) /HPF Urine WBC 0-5 (0-5) /HPF Ur Squamous Epith Cells 0-2 (0-2) /HPF Urine Bacteria None Seen (None Seen) Hyaline Casts 0-2 (0-2) /LPF COVID-19 (SEDA) (Negative) COVID-19 Clin Com <Bo Mathur MD - Last Filed: 11/27/21 03:15> Imaging Data Chest x-ray: Attestation: I personally reviewed and interpreted this imaging study as follows: <Macy Knapp NP - Last Filed: 11/27/21 01:31> Radiologist's impression: EXAMINATION: XR CHEST CLINICAL INFORMATION: Shortness of breath, Covid positive COMPARISON: CTA chest on 07/27/2021 TECHNIQUE: Frontal view of the chest was obtained. FINDINGS: No significant abnormality is noted involving the heart, lungs, mediastinum, bony thorax or soft tissues. XR/XR chest 1V IMPRESSION: Unremarkable examination. ? <Macy Knapp NP - Last Filed: 11/27/21 01:31> Discharge Plan Discharge Clinical Impression: COVID-19, Cholelithiasis <Macy Knapp NP - Last Filed: 11/27/21 01:31> Patient Disposition: Home, Self-Care <Macy Knapp NP - Last Filed: 11/27/21 01:31> Instructions: Gallstones (ED), COVID-19 (Coronavirus Disease 2019) (ED) <Macy Knapp NP - Last Filed: 11/27/21 01:31> Additional Instructions: You were evaluated for upper respiratory symptoms. He tested positive for COVID-19. Maintain social isolation per State Federal guidelines. You were evaluated for abdominal pain. CT scan is negative for acute findings. Thank you for choosing this emergency department for evaluation. Please foll ow-up with primary care physician as needed. Return to the emergency department for any new, concerning, or worsening symptoms. <Macy Knapp NP - Last Filed: 11/27/21 01:31> Prescriptions: No Action tamsulosin 0.4 mg capsule 0.4 mg PO DAILY 90 Days Qty: 90 2RF acetaminophen [Tylenol Extra Strength] 500 mg tablet 500 mg PO Q6H PRN (Reason: pain or fever) Qty: 20 0RF montelukast 10 mg tablet 1 tab PO BEDTIME amlodipine 5 mg tablet 5 mg PO DAILY Qty: 30 0RF insulin lispro [Humalog KwikPen Insulin] 100 unit/mL insulin pen 10 unit subcut DIRECTED Dexilant 60 mg capsule,biphase delayed releas 60 mg PO DAILY (DME) pen needle, diabetic [Unifine Pentips] 32 gauge x 5/32 needle See Rx Instructions .ROUTE .MEDSUPPLY Qty: 50 Rx Instructions: As directed (DME) lancets [TRUEplus Lancets] 33 gauge misc See Rx Instructions .ROUTE .MEDSUPPLY Qty: 100 Rx Instructions: As directed cholecalciferol (vitamin D3) [Vitamin D3] 25 mcg (1,000 unit) tablet 25 mcg PO DAILY Toujeo SoloStar U-300 Insulin 300 unit/mL (1.5 mL) insulin pen 20 unit subcut DAILY (DME) FreeStyle Lite Strips Strip See Rx Instructions Not Applicable QID Qty: 10 Rx Instructions: As directed lidocaine [Lidoderm] 5 % adhesive patch,medicated 0 patch topical tramadol 50 mg tablet 50 mg PO Q12H PRN fluticasone propionate [Flovent HFA] 110 mcg/actuation HFA aerosol inhaler 1 puff PO BID fluticasone propionate 50 mcg/actuation spray,suspension 1 spray intranasal DAILY glipizide 5 mg tablet 5 mg PO BID lisinopril 40 mg tablet 40 mg PO QPM gabapentin 100 mg capsule 100 mg PO TID metoclopramide HCl 5 mg tablet 5 mg PO BEDTIME chlorthalidone 25 mg tablet 25 mg PO QAM metoprolol succinate 50 mg tablet extended release 24 hr 50 mg PO QAM insulin aspart U-100 100 unit/mL (3 mL) insulin pen 10 unit subcut DIRECTED albuterol sulfate [ProAir HFA] 90 mcg/actuation HFA aerosol inhaler 2 puff inhalation Q4-6H PRN (Reason: dyspnea) cetirizine 10 mg tablet 10 mg PO BEDTIME tadalafil 10 mg tablet 10 mg PO DAILY 90 Days Qty: 90 1RF <Macy Knapp NP - Last Filed: 11/27/21 01:31> Stand Alone Forms: Work/School Release <Macy Knapp NP - Last Filed: 11/27/21 01:31>
[2021-11-27 00:18] VITALS: BP 147/81; PULSE 86; RESP 10; TEMP 37.2; O2SAT 96
[2021-11-27 01:41] VITALS: BP 137/82; PULSE 85; RESP 12; TEMP 37.3; O2SAT 99
--- NOTE | 2021-11-27 01:45 | PC.NURSE ---
Pt aox4. Breaths are even and unlabored. Reports sob and congestion. NSR on monitor with HR 84. Abd is soft tender. Reports right sided pain, 9/10. Pt waiting for CT results and aware of plan of care. All questions answered. Will continue to monitor.
[2021-11-27 03:04] LABS: Alanine Aminotransferase 53 U/L (0-40); Albumin Level 3.3 g/dL (3.5-5.0); Alkaline Phosphatase 119 U/L (39-117); Aspartate Amino Transferase 63 U/L (5-37); Bilirubin Direct 0.4 mg/dL (0.0-0.5); Bilirubin Total 0.9 mg/dL (0.0-1.0); Total Protein 7.6 g/dL (6.5-8.0)
[2021-11-27 03:32] VITALS: BP 133/81; PULSE 86; RESP 16; TEMP 37.2; O2SAT 98
== END 2021-11-27 03:38 | disposition home or self-care (01) ==
PROVIDERS: Emergency Provider Internal Medicine
DX: K80.20 Calculus of gallbladder without cholecystitis without obstruction (principal); U07.1 COVID-19; R06.02 Shortness of breath; R07.89 Other chest pain; F17.210 Nicotine dependence, cigarettes, uncomplicated; Z71.6 Tobacco abuse counseling; Z79.899 Other long term (current) drug therapy
CPT/HCPCS: 36415; 71045; 74176; 80048; 80076; 81001; 85025; 87635; 99284

== ENCOUNTER → 2021-12-18 11:27 | Outpatient (BNVA) | payer MEDICAID, SELFPAY | PROVIDERS: PCP Family Medicine; Visit Provider Surgery | DX: K80.20 Calculus of gallbladder without cholecystitis without obstruction (principal); E66.01 Morbid (severe) obesity due to excess calories; Z68.41 Body mass index [BMI] 40.0-44.9, adult | CPT/HCPCS: 99212 ==

== ENCOUNTER → 2022-02-07 11:48 | Outpatient (BNVA) | payer MEDICAID, SELFPAY | PROVIDERS: PCP Family Medicine; Visit Provider Urology | DX: E11.69 Type 2 diabetes mellitus with other specified complication (principal); N52.1 Erectile dysfunction due to diseases classified elsewhere; N40.1 Benign prostatic hyperplasia with lower urinary tract symptoms; N13.8 Other obstructive and reflux uropathy | CPT/HCPCS: 51798; 99212 ==

== ENCOUNTER → 2022-03-17 10:26 | Outpatient (BNVA) | payer MEDICAID, SELFPAY | PROVIDERS: PCP Family Medicine; Referring Provider Family Medicine; Visit Provider Internal Medicine | DX: I10 Essential (primary) hypertension (principal); R55 Syncope and collapse | CPT/HCPCS: 93005; 99212 ==

== ENCOUNTER 2022-05-03 10:43 | Emergency (ER) | payer MEDICAID, SELFPAY ==
[2022-05-03 10:58] VITALS: BP 114/71; PULSE 89; RESP 16; TEMP 36.3; O2SAT 98; BMI 44.1
--- NOTE | 2022-05-03 11:03 | ED.GENADULT ---
HPI - General Adult General Chief complaint: General Medical <SOURAV Estrella - Last Filed: 05/03/22 11:04> Stated complaint: low bp <SOURAV Estrella - Last Filed: 05/03/22 11:04> Time Seen by Provider: 05/03/22 11:08 <SOURAV Estrella - Last Filed: 05/03/22 11:04> Source: patient and animal chiropractor <Cyndi Bhandari MD - Last Filed: 05/03/22 15:57> Mode of arrival: ambulatory <Cyndi Bhandari MD - Last Filed: 05/03/22 15:57> Limitations: no limitations <Cyndi Bhandari MD - Last Filed: 05/03/22 15:57> History of Present Illness HPI narrative: 47-year-old male with past medical history of arthritis, asthma, cirrhosis, colitis, GERD, obesity, OLIVER use CPAP at home, HTN normally blood pressure runs in the 120s. Patient woke up this morning with cold feet bilaterally in feeling tired patient checked his blood pressure and was 101/ 60 at home which consider low for the patient. Patient did not feel dizziness, no CP, no SOB, no blurred vision, no headache, no weakness. Patient had similar symptoms in the past in [place] and his hemoglobin was low. Patient declined any bleeding or source of losing blood. <Cyndi Bhandari MD - Last Filed: 05/03/22 15:57> Related Data Home medications: Home Medications Medication Instructions Recorded Confirmed cholecalciferol (vitamin D3) 25 25 mcg PO DAILY 11/15/19 03/17/22 mcg (1,000 unit) tablet (Vitamin D3) dexlansoprazole 60 mg 60 mg PO DAILY 11/15/19 03/17/22 capsule,biphase delayed release (Dexilant) lancets 33 gauge (TRUEplus Lancets) #100 ea 11/15/19 03/17/22 pen needle, diabetic 32 gauge x #50 ea 11/15/19 03/17/22 5/32 (Unifine Pentips) blood sugar diagnostic (FreeStyle #10 ea 05/03/21 03/17/22 Lite Strips) insulin glargine U-300 conc 300 20 unit subcut DAILY 05/03/21 03/17/22 unit/mL (1.5 mL) subcutaneous pen (Toujeo SoloStar U-300 Insulin) albuterol sulfate 90 mcg/actuation 2 puff inhalation Q4-6H PRN dyspnea 08/09/21 03/17/22 aerosol inhaler (ProAir HFA) cetirizine 10 mg tablet 10 mg PO BEDTIME 08/09/21 03/17/22 chlorthalidone 25 mg tablet 25 mg PO QAM 08/09/21 03/17/22 fluticasone propionate 110 1 puff PO BID 08/09/21 03/17/22 mcg/actuation HFA aerosol inhaler (Flovent HFA) fluticasone propionate 50 1 spray intranasal DAILY 08/09/21 03/17/22 mcg/actuation nasal spray,suspension glipizide 5 mg tablet 5 mg PO BID 08/09/21 03/17/22 insulin aspart U-100 100 unit/mL 10 unit subcut DIRECTED 08/09/21 03/17/22 (3 mL) subcutaneous pen lidocaine 5 % topical patch 0 patch topical 08/09/21 03/17/22 (Lidoderm) metoprolol succinate 50 mg 50 mg PO QAM 08/09/21 03/17/22 tablet,extended release 24 hr tramadol 50 mg tablet 50 mg PO Q12H PRN 08/09/21 03/17/22 montelukast 10 mg tablet 10 mg PO BEDTIME PRN 03/17/22 03/17/22 Previous Rx's Medication Instructions Recorded acetaminophen 500 mg tablet 500 mg PO Q6H PRN pain or fever 12/24/19 (Tylenol Extra Strength) #20 tabs tadalafil 5 mg tablet 5 mg PO DAILY sexual activity 90 02/07/22 days #90 tabs tamsulosin 0.4 mg capsule 0.4 mg PO DAILY 90 days #90 caps 02/27/22 <SOURAV Estrella - Last Filed: 05/03/22 11:04> Allergies/adverse reactions: Allergies Allergy/AdvReac Type Severity Reaction Status Date / Time ranitidine [From ZANTAC] Allergy Severe DIFFICULTY Verified 03/17/22 10:46 BREATHING, ITCHING <SOURAV Estrella - Last Filed: 05/03/22 11:04> Review of Systems Review of Systems: All other systems are reviewed and are negative Constitutional: Reports as per HPI and Reports no additional constitutional complaints Eyes: Reports as per HPI and Reports no additional eye complaints Reports system reviewed and no additional complaints, except as documented Cardiovascular: Reports as per HPI and Reports no additional cardiovascular complaints Respiratory: Reports as per HPI and Reports no additional respiratory complaints Gastrointestinal: Reports as per HPI and Reports no additional gastrointestinal complaints Genitourinary: Reports no additional female genitourinary complaints Musculoskeletal: Reports no additional musculoskeletal complaints Skin/Breast: Reports system reviewed and no additional complaints, except as docu Psychiatric: Reports no additional psychiatric complaints Endocrine: Reports no additional endocrine complaints Hematologic/Lymphatic: Reports no additional hematologic/lymphatic complaints Allergic/Immunologic: Reports no additional allergic/immunologic complaints Reports system reviewed and no additional complaints, except as documented and Reports Abnormal speech present <Cyndi Bhandari MD - Last Filed: 05/03/22 15:57> [facility] Past Medical History Medical History: Medical History Arthritis Asthma Chronic back pain Cirrhosis Colitis COVID-19 Diabetes Dysuria Fatty liver Gallstones GERD (gastroesophageal reflux disease) History of anxiety History of depression History of tachycardia HTN (hypertension) Hx of gastritis Lipoma of neck Morbid obesity Obesity On beta alma at home OLIVER on CPAP Subcutaneous mass of neck <SOURAV Estrella - Last Filed: 05/03/22 11:04> Surgical History: Surgical History History of esophagogastroduodenoscopy (EGD) History of left knee surgery Hx of elbow surgery S/P cubital tunnel release <SOURAV Estrella - Last Filed: 05/03/22 11:04> Family History Family History: Family History Father No problems noted. Mother HTN (hypertension) Sister Type II diabetes mellitus <SOURAV Estrella - Last Filed: 05/03/22 11:04> Social History Social History: Social History Are you a primary regular senior care provider to a significant other at home: No Do you presently have visiting nurse or other home services: No Alcohol intake: current Alcohol intake frequency: a few times a month Alcohol type: beer Patient Tobacco Use Status: Current someday Tobacco user Tobacco use type: Cigarette Advance Directives: No Advance Directives Information Provided: Yes service: No Current occupational status: unemployed and disabled <SOURAV Estrella - Last Filed: 05/03/22 11:04> Physical Exam ED Vital Signs: Vital Signs - 24 hr 05/03/22 10:58 05/03/22 11:22 05/03/22 11:50 Temperature 97.3 F Pulse Rate 89 86 84 Respiratory Rate 16 20 14 Blood Pressure 114/71 122/73 125/72 Pulse Oximetry 98 98 98 Oxygen Delivery Method Nasal Cannula Room Air Room Air 05/03/22 13:53 Temperature Pulse Rate 81 Respiratory Rate 13 Blood Pressure 114/66 Pulse Oximetry 97 Oxygen Delivery Method Room Air BMI result Body Mass Index 44.1 <SOURAV Estrella - Last Filed: 05/03/22 11:04> Vital Signs - 24 hr 05/03/22 10:58 05/03/22 11:22 05/03/22 11:50 Temperature 97.3 F Pulse Rate 89 86 84 Respiratory Rate 16 20 14 Blood Pressure 114/71 122/73 125/72 Pulse Oximetry 98 98 98 Oxygen Delivery Method Nasal Cannula Room Air Room Air 05/03/22 13:53 Temperature Pulse Rate 81 Respiratory Rate 13 Blood Pressure 114/66 Pulse Oximetry 97 Oxygen Delivery Method Room Air BMI result Body Mass Index 44.1 Vital signs have been reviewed as appeared to be correct. Blood pressure normal. Heart rate normal. Respiration rate normal. Temperature normal. Oxygen saturation normal. <Cyndi Bhandari MD - Last Filed: 05/03/22 15:57> Appearance: Alert. Oriented X3. No acute distress. Head: Normal external exam. Normocephalic. Atraumatic. No Pereyra signs noted. No raccoon eyes noted Eyes: PERRLA. EOMI. Conjunctiva and sclera normal. Eyelids normal. ENT: TM's Normal. Pharynx normal. Uvula midline. Moist mucous membranes. No trismus noted. No drooling noted. No muffled voice noted. Neck: Normal inspection. Neck supple. FROM. No adenopathy. Thyroid Normal. No meningeal signs. No neck mass noted. CVS: Normal heart rate and rhythm. Heart sound normal. No murmurs noted. Pulses normal throughout. Respiratory: No respiratory distress. Painless inspiration. Breath sounds normal. No wheezes/rales/rhonchi noted. Chest nontender. No accessory muscle usage noted or decreased air movement noted. Abdomen: Soft and nontender. Bowel sounds normal in all 4 quadrants. No distention noted. No organomegaly noted. No visible injury noted. Back: No CVA tenderness. Full range of motion noted. Skin: Skin warm and dry. Normal skin color. Normal skin turgor. No rashes/lesions/lacerations noted. Extremities: No lower extremity edema. Extremities exhibit normal range of motion. Extremities nontender. Neuro: Oriented X 3. Cranial nerve exam: II-XII are grossly intact No motor deficit. No sensory deficit. Reflexes normal. <Cyndi Bhandari MD - Last Filed: 05/03/22 15:57> Course Course Course Narrative: RME performed by Maria George PA-C. Patient is a 47 year old male presenting to the emergency department with concerns of low blood pressure. Patient states that he took his blood pressure medication this morning and now believes his pressure is too low. Labs ordered. Patient to be placed back in the waiting room pending room availability and results. <SOURAV Estrella - Last Filed: 05/03/22 11:04> Reevaluation(s) Reevaluation #1: 47-year-old male came in for concern of low blood pressure, patient was monitored in the emergency department with a normal BP, labs are unremarkable, patient feels better will discharge to follow-up with PCP. <Cyndi Bhandari MD - Last Filed: 05/03/22 15:57> Time: 15:52 <Cyndi Bhandari MD - Last Filed: 05/03/22 15:57> Medical Decision Making Differential Diagnosis Differential Diagnoses: The differential diagnosis associated with the presentation includes (Hypotension, infection, dehydration.) <Cyndi Bhandari MD - Last Filed: 05/03/22 15:57> Lab Data MDM Lab Attestation statement: I reviewed the patient's lab results. <Cyndi Bhandari MD - Last Filed: 05/03/22 15:57> Result Diagrams: 05/03/22 11:25 05/03/22 11:24 <SOURAV Estrella - Last Filed: 05/03/22 11:04> Labs: Lab Results 05/03/22 05/03/22 05/03/22 Range/Units 11:07 11:24 11:24 WBC (4.8-10.8) X10*3/uL RBC (4.60-5.80) X10*6/uL Hgb (14.0-18.0) g/dl Hct (42.0-52.0) % MCV (80.0-98.0) fL MCH (27.0-33.0) pg MCHC (31.0-36.0) g/dl RDW (11.0-16.0) % Plt Count (160-400) X10*3/uL MPV (9.4-12.4) fL Immature Gran % (Auto) (0.0-0.4) % Neut % (Auto) (45-73) % Lymph % (Auto) (20-40) % Labette % (Auto) (2-11) % Eos % (Auto) (0-4) % Baso % (Auto) (0-2) % Lymph # (Auto) (1.2-4.9) X10*3/uL Labette # (Auto) (0.1-1.2) X10*3/uL Eos # (Auto) (0.0-0.4) X10*3/uL Baso # (Auto) (0.0-0.2) X10*3/uL Abs Immat Gran (auto) (0.00-0.03) X10*3/uL Absolute Neuts (auto) (2.0-8.3) x10*3/uL Absolute Nucleated RBC (0.0-0.012) X10*3/uL Nucleated RBC % (auto) (0.0-0.2) /100WBC Sodium 141 (135-145) mmol/L Potassium 3.7 (3.3-5.1) mmol/L Chloride 108 (96-108) mmol/L Carbon Dioxide 25 (22-29) mmol/L Anion Gap 12 (12-20) BUN 7 L (9-16) mg/dL Creatinine 0.77 (0.5-1.4) mg/dL Estim Creat Clear Calc 158.7 Estimated GFR > 60 POC Glucose 164 H (60-115) mg/dL Random Glucose 195 H (60-115) mg/dL Calcium 8.6 (8.4-10.2) mg/dL Magnesium 1.9 (1.6-2.6) mg/dL Total Bilirubin 1.1 H (0.0-1.0) mg/dL AST 71 H (5-37) U/L ALT 51 H (0-40) U/L Alkaline Phosphatase 106 (39-117) U/L Troponin I High Sens < 3.5 (<3.5-35.0) ng/L Total Protein 7.5 (6.5-8.0) g/dL Albumin 3.1 L (3.5-5.0) g/dL 05/03/22 Range/Units 11:25 WBC 6.8 (4.8-10.8) X10*3/uL RBC 4.29 L (4.60-5.80) X10*6/uL Hgb 14.4 (14.0-18.0) g/dl Hct 41.7 L (42.0-52.0) % MCV 97.2 (80.0-98.0) fL MCH 33.6 H (27.0-33.0) pg MCHC 34.5 (31.0-36.0) g/dl RDW 15.0 (11.0-16.0) % Plt Count 129 L D (160-400) X10*3/uL MPV 10.3 (9.4-12.4) fL Immature Gran % (Auto) 0.1 (0.0-0.4) % Neut % (Auto) 44.3 L (45-73) % Lymph % (Auto) 44.1 H (20-40) % Labette % (Auto) 9.0 (2-11) % Eos % (Auto) 2.1 (0-4) % Baso % (Auto) 0.4 (0-2) % Lymph # (Auto) 3.0 (1.2-4.9) X10*3/uL Labette # (Auto) 0.6 (0.1-1.2) X10*3/uL Eos # (Auto) 0.1 (0.0-0.4) X10*3/uL Baso # (Auto) 0.0 (0.0-0.2) X10*3/uL Abs Immat Gran (auto) 0.01 (0.00-0.03) X10*3/uL Absolute Neuts (auto) 3.0 (2.0-8.3) x10*3/uL Absolute Nucleated RBC 0.000 (0.0-0.012) X10*3/uL Nucleated RBC % (auto) 0.0 (0.0-0.2) /100WBC Sodium (135-145) mmol/L Potassium (3.3-5.1) mmol/L Chloride (96-108) mmol/L Carbon Dioxide (22-29) mmol/L Anion Gap (12-20) BUN (9-16) mg/dL Creatinine (0.5-1.4) mg/dL Estim Creat Clear Calc Estimated GFR POC Glucose (60-115) mg/dL Random Glucose (60-115) mg/dL Calcium (8.4-10.2) mg/dL Magnesium (1.6-2.6) mg/dL Total Bilirubin (0.0-1.0) mg/dL AST (5-37) U/L ALT (0-40) U/L Alkaline Phosphatase (39-117) U/L Troponin I High Sens (<3.5-35.0) ng/L Total Protein (6.5-8.0) g/dL Albumin (3.5-5.0) g/dL <SOURAV Estrella - Last Filed: 05/03/22 11:04> Lab Results 05/03/22 05/03/22 05/03/22 Range/Units 11:07 11:24 11:24 WBC (4.8-10.8) X10*3/uL RBC (4.60-5.80) X10*6/uL Hgb (14.0-18.0) g/dl Hct (42.0-52.0) % MCV (80.0-98.0) fL MCH (27.0-33.0) pg MCHC (31.0-36.0) g/dl RDW (11.0-16.0) % Plt Count (160-400) X10*3/uL MPV (9.4-12.4) fL Immature Gran % (Auto) (0.0-0.4) % Neut % (Auto) (45-73) % Lymph % (Auto) (20-40) % Labette % (Auto) (2-11) % Eos % (Auto) (0-4) % Baso % (Auto) (0-2) % Lymph # (Auto) (1.2-4.9) X10*3/uL Labette # (Auto) (0.1-1.2) X10*3/uL Eos # (Auto) (0.0-0.4) X10*3/uL Baso # (Auto) (0.0-0.2) X10*3/uL Abs Immat Gran (auto) (0.00-0.03) X10*3/uL Absolute Neuts (auto) (2.0-8.3) x10*3/uL Absolute Nucleated RBC (0.0-0.012) X10*3/uL Nucleated RBC % (auto) (0.0-0.2) /100WBC Sodium 141 (135-145) mmol/L Potassium 3.7 (3.3-5.1) mmol/L Chloride 108 (96-108) mmol/L Carbon Dioxide 25 (22-29) mmol/L Anion Gap 12 (12-20) BUN 7 L (9-16) mg/dL Creatinine 0.77 (0.5-1.4) mg/dL Estim Creat Clear Calc 158.7 Estimated GFR > 60 POC Glucose 164 H (60-115) mg/dL Random Glucose 195 H (60-115) mg/dL Calcium 8.6 (8.4-10.2) mg/dL Magnesium 1.9 (1.6-2.6) mg/dL Total Bilirubin 1.1 H (0.0-1.0) mg/dL AST 71 H (5-37) U/L ALT 51 H (0-40) U/L Alkaline Phosphatase 106 (39-117) U/L Troponin I High Sens < 3.5 (<3.5-35.0) ng/L Total Protein 7.5 (6.5-8.0) g/dL Albumin 3.1 L (3.5-5.0) g/dL 03/18/23 Range/Units 11:25 WBC 6.8 (4.8-10.8) X10*3/uL RBC 4.29 L (4.60-5.80) X10*6/uL Hgb 14.4 (14.0-18.0) g/dl Hct 41.7 L (42.0-52.0) % MCV 97.2 (80.0-98.0) fL MCH 33.6 H (27.0-33.0) pg MCHC 34.5 (31.0-36.0) g/dl RDW 15.0 (11.0-16.0) % Plt Count 129 L D (160-400) X10*3/uL MPV 10.3 (9.4-12.4) fL Immature Gran % (Auto) 0.1 (0.0-0.4) % Neut % (Auto) 44.3 L (45-73) % Lymph % (Auto) 44.1 H (20-40) % Labette % (Auto) 9.0 (2-11) % Eos % (Auto) 2.1 (0-4) % Baso % (Auto) 0.4 (0-2) % Lymph # (Auto) 3.0 (1.2-4.9) X10*3/uL Labette # (Auto) 0.6 (0.1-1.2) X10*3/uL Eos # (Auto) 0.1 (0.0-0.4) X10*3/uL Baso # (Auto) 0.0 (0.0-0.2) X10*3/uL Abs Immat Gran (auto) 0.01 (0.00-0.03) X10*3/uL Absolute Neuts (auto) 3.0 (2.0-8.3) x10*3/uL Absolute Nucleated RBC 0.000 (0.0-0.012) X10*3/uL Nucleated RBC % (auto) 0.0 (0.0-0.2) /100WBC Sodium (135-145) mmol/L Potassium (3.3-5.1) mmol/L Chloride (96-108) mmol/L Carbon Dioxide (22-29) mmol/L Anion Gap (12-20) BUN (9-16) mg/dL Creatinine (0.5-1.4) mg/dL Estim Creat Clear Calc Estimated GFR POC Glucose (60-115) mg/dL Random Glucose (60-115) mg/dL Calcium (8.4-10.2) mg/dL Magnesium (1.6-2.6) mg/dL Total Bilirubin (0.0-1.0) mg/dL AST (5-37) U/L ALT (0-40) U/L Alkaline Phosphatase (39-117) U/L Troponin I High Sens (<3.5-35.0) ng/L Total Protein (6.5-8.0) g/dL Albumin (3.5-5.0) g/dL <Cyndi Bhandari MD - Last Filed: 05/03/22 15:57> Independent Interpretation I performed an independent interpretation of an: EKG (Normal sinus rhythm at 86 beats per minutes left axis deviation, otherwise normal intervals.) <Cyndi Bhandari MD - Last Filed: 05/03/22 15:57> Chronic Conditions Patient?s care impacted by: Hypertension <Cyndi Bhandari MD - Last Filed: 05/03/22 15:57> Discharge Plan Discharge Clinical Impression: Anxiety about health <SOURAV Estrella - Last Filed: 05/03/22 11:04> Patient Disposition: Home, Self-Care <SOURAV Estrella - Last Filed: 05/03/22 11:04> Instructions: Anxiety (ED) <SOURAV Estrella - Last Filed: 05/03/22 11:04> Prescriptions: No Action tamsulosin 0.4 mg capsule 0.4 mg PO DAILY 90 Days Qty: 90 3RF acetaminophen [Tylenol Extra Strength] 500 mg tablet 500 mg PO Q6H PRN (Reason: pain or fever) Qty: 20 0RF montelukast 10 mg tablet 10 mg PO BEDTIME PRN Dexilant 60 mg capsule,biphase delayed releas 60 mg PO DAILY (DME) pen needle, diabetic [Unifine Pentips] 32 gauge x 5/32 needle See Rx Instructions .ROUTE .MEDSUPPLY Qty: 50 Rx Instructions: As directed (DME) lancets [TRUEplus Lancets] 33 gauge misc See Rx Instructions .ROUTE .MEDSUPPLY Qty: 100 Rx Instructions: As directed cholecalciferol (vitamin D3) [Vitamin D3] 25 mcg (1,000 unit) tablet 25 mcg PO DAILY T[place]ar[employer]o SoloStar U-300 Insulin 300 unit/mL (1.5 mL) insulin pen 20 unit subcut DAILY (DME) FreeStyle Lite Strips Strip See Rx Instructions Not Applicable QID Qty: 10 Rx Instructions: As directed lidocaine [Lidoderm] 5 % adhesive patch,medicated 0 patch topical tramadol 50 mg tablet 50 mg PO Q12H PRN fluticasone propionate [Flovent HFA] 110 mcg/actuation HFA aerosol inhaler 1 puff PO BID fluticasone propionate 50 mcg/actuation spray,suspension 1 spray intranasal DAILY glipizide 5 mg tablet 5 mg PO BID chlorthalidone 25 mg tablet 25 mg PO QAM metoprolol succinate 50 mg tablet extended release 24 hr 50 mg PO QAM insulin aspart U-100 100 unit/mL (3 mL) insulin pen 10 unit subcut DIRECTED albuterol sulfate [ProAir HFA] 90 mcg/actuation HFA aerosol inhaler 2 puff inhalation Q4-6H PRN (Reason: dyspnea) cetirizine 10 mg tablet 10 mg PO BEDTIME tadalafil 5 mg tablet 5 mg PO DAILY 90 Days Qty: 90 1RF <SOURAV Estrella - Last Filed: 05/03/22 11:04> Referrals: [facility] [Primary Care Provider] - <SOURAV Estrella - Last Filed: 05/03/22 11:04>
--- NOTE | 2022-05-03 11:10 | ECG_ITS ---
Test Reason : HYPOTENSION Blood Pressure : / mmHG Vent. Rate : 086 BPM Atrial Rate : 086 BPM P-R Int : 160 ms QRS Dur : 082 ms QT Int : 398 ms P-R-T Axes : 040 010 011 degrees QTc Int : 476 ms Normal sinus rhythm Normal ECG When compared with ECG of 27-JUL-2021 11:34, No significant change was found Referred By: Cyndi Bhandari Electronically Signed By:Triston Mas
[2022-05-03 11:14] LABS: Glucose, Whole Blood 164 mg/dL (60-115)
[2022-05-03 11:22] VITALS: BP 122/73; PULSE 86; RESP 20; O2SAT 98
[2022-05-03 11:32] LABS: MANUAL DIFF FLAG NO
[2022-05-03 11:33] LABS: Basophils Percent Auto 0.4 % (0-2); Eosinophils Absolute Auto 0.1 X10*3/uL (0.0-0.4); Eosinophils Percent Auto 2.1 % (0-4); Hematocrit 41.7 % (42.0-52.0); Hemoglobin 14.4 g/dl (14.0-18.0); Imm Gran Abs Auto 0.01 X10*3/uL (0.00-0.03); Imm Gran Pct Auto 0.1 % (0.0-0.4); Lymphocytes Percent Auto 44.1 % (20-40); Mean Corpuscular HGB Conc 34.5 g/dl (31.0-36.0); Mean Corpuscular Hemoglobin 33.6 pg (27.0-33.0); Mean Corpuscular Volume 97.2 fL (80.0-98.0); Mean Platelet Volume 10.3 fL (9.4-12.4); Monocytes Absolute Auto 0.6 X10*3/uL (0.1-1.2); Neutrophils Percent Auto 44.3 % (45-73); Platelet Count 129 X10*3/uL (160-400); Red Blood Count 4.29 X10*6/uL (4.60-5.80); White Blood Count 6.8 X10*3/uL (4.8-10.8)
[2022-05-03 11:50] VITALS: BP 125/72; PULSE 84; RESP 14; O2SAT 98
[2022-05-03 11:55] LABS: Alanine Aminotransferase 51 U/L (0-40); Albumin Level 3.1 g/dL (3.5-5.0); Alkaline Phosphatase 106 U/L (39-117); Anion Gap 12 (12-20); Aspartate Amino Transferase 71 U/L (5-37); Bilirubin Total 1.1 mg/dL (0.0-1.0); Blood Urea Nitrogen 7 mg/dL (9-16); Calcium 8.6 mg/dL (8.4-10.2); Carbon Dioxide 25 mmol/L (22-29); Chloride 108 mmol/L (96-108); Creatinine Clr Calc Pharmacy 158.7; Estimated Glomerular Filt Rate > 60; Glucose Random 195 mg/dL (60-115); Magnesium 1.9 mg/dL (1.6-2.6); Potassium 3.7 mmol/L (3.3-5.1); Sodium 141 mmol/L (135-145); Total Protein 7.5 g/dL (6.5-8.0)
[2022-05-03 12:05] LABS: Troponin-I High Sensitivity < 3.5 ng/L (<3.5-35.0)
[2022-05-03 13:53] VITALS: BP 114/66; PULSE 81; RESP 13; O2SAT 97
[2022-05-03 15:51] VITALS: BP 142/70; PULSE 81; RESP 16; O2SAT 98
== END 2022-05-03 16:07 | disposition home or self-care (01) ==
PROVIDERS: Physician Assistant Medical; Emergency Provider Emergency Medicine
DX: F41.8 Other specified anxiety disorders (principal); I10 Essential (primary) hypertension; E11.9 Type 2 diabetes mellitus without complications; F17.210 Nicotine dependence, cigarettes, uncomplicated; E66.9 Obesity, unspecified; Z68.41 Body mass index [BMI] 40.0-44.9, adult; Z99.89 Dependence on other enabling machines and devices; Z79.899 Other long term (current) drug therapy; Z79.4 Long term (current) use of insulin
CPT/HCPCS: 36415; 80053; 82947; 83735; 84484; 85025; 93005; 99283; 99284

== ENCOUNTER 2022-08-25 15:44 | Emergency (ER) | payer MEDICAID, SELFPAY ==
--- NOTE | ~2022-08-25 | US_ITS ---
EXAMINATION: US ABDOMEN LIMITED CLINICAL INFORMATION: Right upper quadrant pain. COMPARISON: CT abdomen/pelvis earlier today. TECHNIQUE: Real-time imaging of the right upper quadrant abdominal viscera. FINDINGS: Very limited examination secondary to patient body habitus and shadowing from overlying bowel gas. PANCREAS: Not well visualized due to shadowing from overlying bowel gas. LIVER: Cirrhotic liver morphology with recanalized umbilical vein suggesting portal hypertension. No discrete focal liver lesion. No intrahepatic biliary ductal dilatation. GALLBLADDER: Cholelithiasis with diffuse gallbladder wall thickening measuring up to 0.5 cm. No significant pericholecystic free fluid. Pericholecystic fat stranding best seen on delay. Negative Hdz sign. COMMON BILE DUCT: Visualized segments are normal in caliber measuring 0.3 cm in diameter. RIGHT KIDNEY: No hydronephrosis. No renal calculi or focal parenchymal lesions. The kidney measures 11.6 cm in maximum dimension. FREE FLUID: None. US/US abdomen limited IMPRESSION: Very limited examination secondary to patient body habitus and shadowing from overlying bowel gas. 1. Cholelithiasis with diffuse gallbladder wall thickening in which acute cholecystitis cannot be excluded in the appropriate clinical content, although the gallbladder wall thickening is nonspecific in the setting of cirrhosis. 2. Cirrhotic liver morphology with recanalized umbilical vein suggesting portal hypertension.
--- NOTE | ~2022-08-25 | CT_ITS ---
EXAMINATION: CT ABDOMEN AND PELVIS WITHOUT CONTRAST CLINICAL INFORMATION: R flank pain that radiates to abdomen. COMPARISON: 11/27/2021. TECHNIQUE: Multidetector volumetric imaging was performed from the superior aspect of the liver through the pubic symphysis without contrast per renal stone protocol. Sagittal and coronal reformatted images were obtained on the technologist workstation. This CT examination was performed using dose optimization techniques as appropriate, variously including the following: *Automated exposure control *Adjustment of mA and/or kV according to patient size (this includes techniques or standardized protocols for targeted exams where dose is matched to indication/reason for exam; i.e. extremities or head) *Use of iterative reconstruction technique DLP: 920 mGy-cm. FINDINGS: LUNG BASES: The visualized lung bases are unremarkable. LIVER, GALLBLADDER, BILIARY TREE: Although this is a noncontrast study liver demonstrates a nodular contour suggesting underlying cirrhotic change. No discrete mass lesion seen on this noncontrast examination. Gallstones in the dependent portion of the gallbladder. There is mild nonspecific gallbladder wall thickening and pericholecystic stranding which is new from the previous examination. PANCREAS: Unremarkable. SPLEEN: Enlarged with a maximal AP diameter of 18.2 cm. ADRENAL GLANDS: Unremarkable. KIDNEYS AND URETERS: The kidneys are normal in size, shape, and attenuation. No hydronephrosis, hydroureter, or calculi seen. No perinephric stranding. BLADDER: Unremarkable. GASTROINTESTINAL TRACT: A few scattered colonic diverticula are seen but no colonic wall thickening or pericolonic inflammatory change to suggest diverticulitis. Small bowel unremarkable. ABDOMINAL WALL: Small fat-containing umbilical hernia LYMPHOVASCULAR STRUCTURES: No lymphadenopathy. The aorta is unremarkable.. PELVIC VISCERA: Unremarkable. OSSEUS STRUCTURES: Extensive multilevel degenerative changes in the spine. CT/CT abdomen pelvis wo IV con IMPRESSION: 1. Although this is a noncontrast study, the liver demonstrates a nodular contour suggesting underlying cirrhotic change. There is splenomegaly. I do not appreciate any discrete mass lesion on this noncontrast study. 2. There are gallstones in the dependent portion of the gallbladder. There is mild nonspecific gallbladder wall thickening and pericholecystic stranding which is new from the previous examination. Acute cholecystitis cannot be excluded with this appearance and could be clinically correlated. 3. No renal or ureteric calculi seen. No obstructive changes to the kidneys.
--- NOTE | 2022-08-25 16:36 | ECG_ITS ---
Test Reason : CHEST PAIN Blood Pressure : / mmHG Vent. Rate : 069 BPM Atrial Rate : 069 BPM P-R Int : 144 ms QRS Dur : 084 ms QT Int : 426 ms P-R-T Axes : 031 014 020 degrees QTc Int : 456 ms Normal sinus rhythm Normal ECG When compared with ECG of 03-MAY-2022 11:14, No significant change was found Referred By: Linnea Arevalo Electronically Signed By:KVNG ANDERSEN MD
--- NOTE | 2022-08-25 16:38 | ED.GENADULT ---
HPI - General Adult General Chief complaint: Back Pain/Injury Stated complaint: lower back pain goes to abd side Time Seen by Provider: 08/25/22 20:21 Source: patient Mode of arrival: ambulatory Limitations: language barrier (Tristanian-speaking neuropsychology medical consultant utilized) History of Present Illness HPI narrative: Patient is a 47-year-old male presents emergency department for evaluation of abdominal pain. Onset was 4 days ago pain initially located diffusely across the lower back and radiates up to the right upper quadrant. It is described as a burning pain. He is able to tolerate eating and drinking however after he eats he develops diarrhea. Denies any nausea or vomiting. In addition he reports tactile fevers. Reports a history of gallstones. He has been taking Pepto-Bismol for the past 2 days. In addition he is reporting black stools, loose, for the past 2 days. Denies dysuria, hematuria, urinary frequency. Related Data Home Medications Medication Instructions Recorded Confirmed cholecalciferol (vitamin D3) 25 25 mcg PO DAILY 11/15/19 03/17/22 mcg (1,000 unit) tablet (Vitamin D3) dexlansoprazole 60 mg 60 mg PO DAILY 11/15/19 03/17/22 capsule,biphase delayed release (Dexilant) lancets 33 gauge (TRUEplus Lancets) #100 ea 11/15/19 03/17/22 pen needle, diabetic 32 gauge x #50 ea 11/15/19 03/17/22 5/32 (Unifine Pentips) blood sugar diagnostic (FreeStyle #10 ea 05/03/21 03/17/22 Lite Strips) insulin glargine U-300 conc 300 20 unit subcut DAILY 05/03/21 03/17/22 unit/mL (1.5 mL) subcutaneous pen (Toujeo SoloStar U-300 Insulin) albuterol sulfate 90 mcg/actuation 2 puff inhalation Q4-6H PRN dyspnea 08/09/21 03/17/22 aerosol inhaler (ProAir HFA) cetirizine 10 mg tablet 10 mg PO BEDTIME 08/09/21 03/17/22 chlorthalidone 25 mg tablet 25 mg PO QAM 08/09/21 03/17/22 fluticasone propionate 110 1 puff PO BID 08/09/21 03/17/22 mcg/actuation HFA aerosol inhaler (Flovent HFA) fluticasone propionate 50 1 spray intranasal DAILY 08/09/21 03/17/22 mcg/actuation nasal spray,suspension glipizide 5 mg tablet 5 mg PO BID 08/09/21 03/17/22 insulin aspart U-100 100 unit/mL 10 unit subcut DIRECTED 08/09/21 03/17/22 (3 mL) subcutaneous pen lidocaine 5 % topical patch 0 patch topical 08/09/21 03/17/22 (Lidoderm) metoprolol succinate 50 mg 50 mg PO QAM 08/09/21 03/17/22 tablet,extended release 24 hr tramadol 50 mg tablet 50 mg PO Q12H PRN 08/09/21 03/17/22 montelukast 10 mg tablet 10 mg PO BEDTIME PRN 03/17/22 03/17/22 Previous Rx's Medication Instructions Recorded acetaminophen 500 mg tablet 500 mg PO Q6H PRN pain or fever 12/24/19 (Tylenol Extra Strength) #20 tabs tadalafil 5 mg tablet 5 mg PO DAILY sexual activity 90 02/07/22 days #90 tabs tamsulosin 0.4 mg capsule 0.4 mg PO DAILY 90 days #90 caps 02/27/22 Allergies Allergy/AdvReac Type Severity Reaction Status Date / Time ranitidine [From ZANTAC] Allergy Severe DIFFICULTY Verified 03/17/22 10:46 BREATHING, ITCHING Review of Systems Review of Systems: Constitutional : No Weight loss, No Fever, No Chills ENT/Mouth :? No sore throat, No Rhinorrhea Eyes: No Swelling, No Redness Cardiovascular : No Chest Pain, No SOB, No Edema Respiratory : No Cough, No Sputum, No Wheezing Gastrointestinal : No Nausea, no Vomiting, positive Diarrhea, positive abdominal pain, positive black stools. No Hematochezia, Genitourinary : No Dysuria, No Urinary Frequency, No Hematuria, No Urgency? Musculoskeletal : No joint pain, No Myalgias, No Joint Swelling Skin : No Skin Lesions, No rash Neuro : No Weakness, No Numbness, No Dizziness, No Headache Psych : No Anxiety/Panic, No Depression Heme/Lymph: No Bruising, No Lymphadenopathy Endocrine : No Polyuria, No Polydipsia Yes all other systems are reviewed and are negative [facility] Past Medical History Attestation statement: The following information was validated with the patient. Source: old records reviewed Medical History Arthritis Asthma Chronic back pain Cirrhosis Colitis COVID-19 Diabetes Dysuria Fatty liver Gallstones GERD (gastroesophageal reflux disease) History of anxiety History of depression History of tachycardia HTN (hypertension) Hx of gastritis Lipoma of neck Morbid obesity Obesity On beta alma at home OLIVER on CPAP Subcutaneous mass of neck Surgical History History of esophagogastroduodenoscopy (EGD) History of left knee surgery Hx of elbow surgery S/P cubital tunnel release Family History Family History Father No problems noted. Mother HTN (hypertension) Sister Type II diabetes mellitus Social History Social History Are you a primary infant caregiver to a significant other at home: No Do you presently have visiting nurse or other home services: No Alcohol intake: current Alcohol intake frequency: holidays/special occasions only Alcohol type: beer Patient Tobacco Use Status: Current someday Tobacco user Tobacco use type: Cigarette Smoked in Last 30 Days: Yes Use of substances other than those prescribed or required for medical reasons: Yes Substance Use Type: Marijuana Substance Use Frequency: Occasionally Advance Directives: No Advance Directives Information Provided: No service: No Current occupational status: unemployed and disabled Physical Exam ED Vital Signs: Vital Signs - 24 hr 08/25/22 16:40 08/25/22 22:00 Temperature 98.0 F 98.1 F Pulse Rate 74 68 Respiratory Rate 18 18 Blood Pressure 133/71 114/63 Pulse Oximetry 98 100 Oxygen Delivery Method Room Air Room Air BMI result Body Mass Index 42.6 Appearance: Alert.?Oriented to person, place and time. No acute distress.?Normal affect. Eyes: Pupils equal, round and reactive to light.? ENT: Pharynx normal.?? Neck: Normal inspection.? Neck supple.?? CVS: Heart sounds normal. Normal heart rate and rhythm.? Pulses normal.?? Respiratory: No respiratory distress.? Lung sounds clear to auscultation bilaterally?? Abdomen: Soft and non-tender. Normoactive bowel sounds. Skin: Skin warm and dry.? Normal skin color.? Extremities: No lower extremity edema.? Neuro: Moves all extremities spontaneously. Sensation intact bilaterally. CN II-XII intact. No focal neuro deficits. Ambulates with normal steady gait. Course Course Course Narrative: This is an RME: Additional HPI, ROS, PE not included below will be deferred to primary provider. 47 year old male hx of HTN, obestity, DM presents w/ r flank pain w/ radiation to r lower abdomen worse w/ peeing, also reports dark tar black stool, cp substernal non radiating X3 days. Plan- labs, imaging, ua, OBS 1848 spoke to charge patient should go back to the department no beds available ? acute ajay. Reevaluation(s) Reevaluation #1: Labs revealing a pancytopenia with mildly elevated AST and ALT which appears consistent with baseline, normal lipase, elevated bilirubin. CT of the abdomen and pelvis revealing cirrhotic changes to liver, splenomegaly, gallstones with mild wall thickening and pericholecystic stranding, concerning for acute cholecystitis. Ultrasound obtained which reveals cholilithiasis with diffuse gallbladder wall thickening, cannot exclude acute cholecystitis. His pain was managed with single dose Toradol IM, he is currently without pain, and has been tolerating. I consulted with general surgery; Dr. Whitfield, who felt that this time this is not acute cholecystitis given normal alk-phos, and imaging revealing cirrhosis with portal hypertension which may be causing the gallbladder wall thickening. He has had prior outpatient workup with GI for evaluation of WEBBER versus ETOH liver disease, previously he was offered to have liver biopsy, but appears this was not done. Time: 21:35 Reevaluation #2: Occult stool is negative. Abdominal examination remains benign at this point. Discussed with patient plan of care for outpatient follow-up with Gastroenterology, provided with their contact information. Additionally advised to follow-up with primary care provider. Reviewed worrisome signs and symptoms that would warrant re-evaluation in the emergency department. Advised low-fat diet. All questions answered. Stable for discharge. Time: 22:11 Medications Administered Discontinued Medications Generic Name Dose Route Start Last Admin Trade Name Freq PRN Reason Stop Dose Admin Ketorolac Tromethamine 30 mg 08/25/22 16:36 08/25/22 20:19 Ketorolac Tromethamine 15 Mg/Ml Vial IM 08/25/22 16:37 30 mg ONCE ONE Administration Lidocaine 1 patch 08/25/22 16:36 08/25/22 20:19 Lidocaine 4 % Patch Adh..Patch TRANSDERMA 08/25/22 16:37 1 patch ONCE ONE Administration Protocol Medical Decision Making Medical Decision Making MDM Narrative: Patient is a 47-year-old male with past medical history of arthritis, asthma, cirrhosis, colitis, insulin-dependent diabetes mellitus, cholelithiasis, GERD, hypertension, obesity, obstructive sleep apnea presenting to emergency department for evaluation of abdominal pain as per HPI. At the time my examination he is overall well-appearing, nontoxic, afebrile. No abdominal tenderness upon examination after receiving Toradol IM from initial rapid medical examination. Initially patient did have right upper quadrant tenderness per the RMA provider. In addition he is also reporting black loose stools, this is also in the setting of recent Pepto-Bismol usage. Denies any bright red blood per rectum. He is having tactile fevers but no chills. Will obtain CBC to evaluate for leukocytosis/ anemia, CMP and lipase to evaluate for abnormal electrolytes /abnormal renal function/ abnormal hepatic/biliary function, CT abdomen and pelvis, abdominal ultrasound, and Urinalysis. Differential Diagnosis Differential Diagnoses: The differential diagnosis associated with the presentation includes (Cholecystitis, cholelithiasis, choledocholithiasis, colitis, appendicitis, diverticulitis, urinary tract infection) Admission/Observation Consideration of admission/observation: Escalation of care including admission/observation considered (I considered in remission for abdominal pain, see above narrative in course narrative for further elaboration) Consult Healthcare Provider Management of the patient was discussed with: Kst Operator (Consulted with general surgery; Dr. Whitfield, see course) Lab Data MDM Lab Attestation statement: I reviewed the patient's lab results. (See course narrative) 08/25/22 16:50 08/25/22 16:50 Labs: Lab Results 08/25/22 08/25/22 08/25/22 Range/Units 16:50 16:50 16:50 WBC 4.2 L (4.8-10.8) X10*3/uL RBC 3.79 L (4.60-5.80) X10*6/uL Hgb 12.9 L (14.0-18.0) g/dl Hct 37.7 L (42.0-52.0) % MCV 99.5 H (80.0-98.0) fL MCH 34.0 H (27.0-33.0) pg MCHC 34.2 (31.0-36.0) g/dl RDW 15.3 (11.0-16.0) % Plt Count 82 L D (160-400) X10*3/uL MPV 11.2 (9.4-12.4) fL Immature Gran % (Auto) 0.2 (0.0-0.4) % Neut % (Auto) 53.9 (45-73) % Lymph % (Auto) 32.0 (20-40) % [place] % (Auto) 11.5 H (2-11) % Eos % (Auto) 1.9 (0-4) % Baso % (Auto) 0.5 (0-2) % Lymph # (Auto) 1.3 (1.2-4.9) X10*3/uL [place] # (Auto) 0.5 (0.1-1.2) X10*3/uL Eos # (Auto) 0.1 (0.0-0.4) X10*3/uL Baso # (Auto) 0.0 (0.0-0.2) X10*3/uL Abs Immat Gran (auto) 0.01 (0.00-0.03) X10*3/uL Absolute Neuts (auto) 2.3 (2.0-8.3) x10*3/uL Absolute Nucleated RBC 0.000 (0.0-0.012) X10*3/uL Nucleated RBC % (auto) 0.0 (0.0-0.2) /100WBC Sodium 139 (135-145) mmol/L Potassium 4.0 (3.3-5.1) mmol/L Chloride 108 (96-108) mmol/L Carbon Dioxide 23 (22-29) mmol/L Anion Gap 12 (12-20) BUN 9 (9-16) mg/dL Creatinine 0.63 (0.5-1.4) mg/dL Estim Creat Clear Calc 190.3 Estimated GFR > 60 Random Glucose 183 H (60-115) mg/dL Calcium 8.9 (8.4-10.2) mg/dL Magnesium 1.8 (1.6-2.6) mg/dL Total Bilirubin 1.9 H (0.0-1.0) mg/dL AST 65 H (5-37) U/L ALT 48 H (0-40) U/L Alkaline Phosphatase 111 (39-117) U/L Troponin I High Sens < 2.7 (<3.5-35.0) ng/L Total Protein 7.2 (6.5-8.0) g/dL Albumin 2.8 L (3.5-5.0) g/dL Lipase 35 (8-78) U/L Urine Color Urine Appearance Urine pH (5.0-9.0) Ur Specific [place] (1.005-1.025) Urine Protein (Neg-Trace) mg/dL Urine Glucose (UA) (Negative) mg/dL Urine Ketones (Negative) mg/dL Urine Blood (Negative) Urine Nitrite (Negative) Ur Leukocyte Esterase (Negative) Urine RBC (0-2) /HPF Urine WBC (0-5) /HPF Ur Squamous Epith Cells (0-2) /HPF Urine Bacteria (None Seen) Hyaline Casts (0-2) /LPF Stool Occult Blood (NEGATIVE) 08/25/22 08/25/22 Range/Units 16:50 21:37 WBC (4.8-10.8) X10*3/uL RBC (4.60-5.80) X10*6/uL Hgb (14.0-18.0) g/dl Hct (42.0-52.0) % MCV (80.0-98.0) fL MCH (27.0-33.0) pg MCHC (31.0-36.0) g/dl RDW (11.0-16.0) % Plt Count (160-400) X10*3/uL MPV (9.4-12.4) fL Immature Gran % (Auto) (0.0-0.4) % Neut % (Auto) (45-73) % Lymph % (Auto) (20-40) % [place] % (Auto) (2-11) % Eos % (Auto) (0-4) % Baso % (Auto) (0-2) % Lymph # (Auto) (1.2-4.9) X10*3/uL [place] # (Auto) (0.1-1.2) X10*3/uL Eos # (Auto) (0.0-0.4) X10*3/uL Baso # (Auto) (0.0-0.2) X10*3/uL Abs Immat Gran (auto) (0.00-0.03) X10*3/uL Absolute Neuts (auto) (2.0-8.3) x10*3/uL Absolute Nucleated RBC (0.0-0.012) X10*3/uL Nucleated RBC % (auto) (0.0-0.2) /100WBC Sodium (135-145) mmol/L Potassium (3.3-5.1) mmol/L Chloride (96-108) mmol/L Carbon Dioxide (22-29) mmol/L Anion Gap (12-20) BUN (9-16) mg/dL Creatinine (0.5-1.4) mg/dL Estim Creat Clear Calc Estimated GFR Random Glucose (60-115) mg/dL Calcium (8.4-10.2) mg/dL Magnesium (1.6-2.6) mg/dL Total Bilirubin (0.0-1.0) mg/dL AST (5-37) U/L ALT (0-40) U/L Alkaline Phosphatase (39-117) U/L Troponin I High Sens (<3.5-35.0) ng/L Total Protein (6.5-8.0) g/dL Albumin (3.5-5.0) g/dL Lipase (8-78) U/L Urine Color Dark Yellow Urine Appearance Clear Urine pH 7.0 (5.0-9.0) Ur Specific [place] 1.020 (1.005-1.025) Urine Protein Negative (Neg-Trace) mg/dL Urine Glucose (UA) Negative (Negative) mg/dL Urine Ketones Negative (Negative) mg/dL Urine Blood Negative (Negative) Urine Nitrite Negative (Negative) Ur Leukocyte Esterase Trace H (Negative) Urine RBC 0-2 (0-2) /HPF Urine WBC 0-5 (0-5) /HPF Ur Squamous Epith Cells 0-2 (0-2) /HPF Urine Bacteria None Seen (None Seen) Hyaline Casts 0-2 (0-2) /LPF Stool Occult Blood NEGATIVE (NEGATIVE) Independent Interpretation I performed an independent interpretation of an: EKG Interpretation: Rate:69 Rhythm:? Normal sinus rhythm [place]:? Normal Normal P waves.? Normal TYRELL.?? Normal QRS complex.?? ST T wave :??No ST elevation, no ST depression qTC:456 prior studies:? April 2022 The study has been interpreted contemporaneously by me. Radiology Impression Discussion of test interpretation with radiology: I have reviewed the radiologist's reading. Radiologist Impression: US/US abdomen limited IMPRESSION: Very limited examination secondary to patient body habitus and shadowing from overlying bowel gas. 1.? Cholelithiasis with diffuse gallbladder wall thickening in which acute cholecystitis cannot be excluded in the appropriate clinical content, although the gallbladder wall thickening is nonspecific in the setting of cirrhosis. 2.? Cirrhotic liver morphology with recanalized umbilical vein suggesting portal hypertension. CT/CT abdomen pelvis wo IV con IMPRESSION: 1.? Although this is a noncontrast study, the liver demonstrates a nodular contour suggesting underlying cirrhotic change. There is splenomegaly. I do not appreciate any discrete mass lesion on this noncontrast study. 2.? There are gallstones in the dependent portion of the gallbladder. There is mild nonspecific gallbladder wall thickening and pericholecystic stranding which is new from the previous examination. Acute cholecystitis cannot be excluded with this appearance and could be clinically correlated. 3.? No renal or ureteric calculi seen. No obstructive changes to the kidneys. Discharge Plan Discharge Clinical Impression: Abdominal pain, Cirrhosis Patient Disposition: Home, Self-Care Instructions: Abdominal Pain (ED), Cirrhosis (ED) Additional Instructions: As discussed, the Pepto-Bismol can cause your stool to be, black. Please stop using this medication. Avoid foods that are high in fat, [place], or fried foods as this can worsen your symptoms. Please contact the GI doctor for further follow-up. I have provided the contact information to the you may call their office tomorrow. You may return back to emergency department any new or worsening symptoms or concerns. Prescriptions: No Action tamsulosin 0.4 mg capsule 0.4 mg PO DAILY 90 Days Qty: 90 3RF acetaminophen [Tylenol Extra Strength] 500 mg tablet 500 mg PO Q6H PRN (Reason: pain or fever) Qty: 20 0RF montelukast 10 mg tablet 10 mg PO BEDTIME PRN Dexilant 60 mg capsule,biphase delayed releas 60 mg PO DAILY (DME) pen needle, diabetic [Unifine Pentips] 32 gauge x /32 needle See Rx Instructions .ROUTE .MEDSUPPLY Qty: 50 Rx Instructions: As directed (DME) lancets [TRUEplus Lancets] 33 gauge misc See Rx Instructions .ROUTE .MEDSUPPLY Qty: 100 Rx Instructions: As directed cholecalciferol (vitamin D3) [Vitamin D3] 25 mcg (1,000 unit) tablet 25 mcg PO DAILY Toujeo SoloStar U-300 Insulin 300 unit/mL (1.5 mL) insulin pen 20 unit subcut DAILY (DME) FreeStyle Lite Strips Strip See Rx Instructions Not Applicable QID Qty: 10 Rx Instructions: As directed lidocaine [Lidoderm] 5 % adhesive patch,medicated 0 patch topical tramadol 50 mg tablet 50 mg PO Q12H PRN fluticasone propionate [Flovent HFA] 110 mcg/actuation HFA aerosol inhaler 1 puff PO BID fluticasone propionate 50 mcg/actuation spray,suspension 1 spray intranasal DAILY glipizide 5 mg tablet 5 mg PO BID chlorthalidone 25 mg tablet 25 mg PO QAM metoprolol succinate 50 mg tablet extended release 24 hr 50 mg PO QAM insulin aspart U-100 100 unit/mL (3 mL) insulin pen 10 unit subcut DIRECTED albuterol sulfate [ProAir HFA] 90 mcg/actuation HFA aerosol inhaler 2 puff inhalation Q4-6H PRN (Reason: dyspnea) cetirizine 10 mg tablet 10 mg PO BEDTIME tadalafil 5 mg tablet 5 mg PO DAILY 90 Days Qty: 90 1RF Referrals: Hazel Anna MD [Physician] -
[2022-08-25 16:40] VITALS: BP 133/71; PULSE 74; RESP 18; TEMP 36.7; O2SAT 98; BMI 42.6
[2022-08-25 17:00] LABS: MANUAL DIFF FLAG NO
[2022-08-25 17:04] LABS: Appearance Urine Clear; Color Urine Dark Yellow; Glucose Urine UA Negative (Negative); Leukocyte Esterase Urine Trace (Negative); Nitrite Urine Negative (Negative); UMIC TRIGGER UACC YES; Urine Blood Negative (Negative); Urine Ketones Negative (Negative); Urine Protein Negative (Neg-Trace)
[2022-08-25 17:07] LABS: Bacteria Urine None Seen (None Seen); Hyaline Casts Urine 0-2 /LPF (0-2); RBC Urine 0-2 /HPF (0-2); Squamous Epithelial Cell Urine 0-2 /HPF (0-2); WBC Urine 0-5 /HPF (0-5)
[2022-08-25 17:16] LABS: Basophils Percent Auto 0.5 % (0-2); Eosinophils Absolute Auto 0.1 X10*3/uL (0.0-0.4); Eosinophils Percent Auto 1.9 % (0-4); Hematocrit 37.7 % (42.0-52.0); Hemoglobin 12.9 g/dl (14.0-18.0); Imm Gran Abs Auto 0.01 X10*3/uL (0.00-0.03); Imm Gran Pct Auto 0.2 % (0.0-0.4); Lymphocytes Absolute Auto 1.3 X10*3/uL (1.2-4.9); Mean Corpuscular HGB Conc 34.2 g/dl (31.0-36.0); Mean Corpuscular Volume 99.5 fL (80.0-98.0); Mean Platelet Volume 11.2 fL (9.4-12.4); Monocytes Absolute Auto 0.5 X10*3/uL (0.1-1.2); Monocytes Percent Auto 11.5 % (2-11); Neutrophils Absolute Auto 2.3 x10*3/uL (2.0-8.3); Neutrophils Percent Auto 53.9 % (45-73); Red Blood Count 3.79 X10*6/uL (4.60-5.80); Red Cell Distribution Width 15.3 % (11.0-16.0); White Blood Count 4.2 X10*3/uL (4.8-10.8)
[2022-08-25 17:19] LABS: Alanine Aminotransferase 48 U/L (0-40); Albumin Level 2.8 g/dL (3.5-5.0); Alkaline Phosphatase 111 U/L (39-117); Anion Gap 12 (12-20); Aspartate Amino Transferase 65 U/L (5-37); Bilirubin Total 1.9 mg/dL (0.0-1.0); Blood Urea Nitrogen 9 mg/dL (9-16); Calcium 8.9 mg/dL (8.4-10.2); Carbon Dioxide 23 mmol/L (22-29); Chloride 108 mmol/L (96-108); Creatinine Clr Calc Pharmacy 190.3; Estimated Glomerular Filt Rate > 60; Glucose Random 183 mg/dL (60-115); Lipase 35 U/L (8-78); Magnesium 1.8 mg/dL (1.6-2.6); Sodium 139 mmol/L (135-145); Total Protein 7.2 g/dL (6.5-8.0)
[2022-08-25 17:30] LABS: Troponin-I High Sensitivity < 2.7 ng/L (<3.5-35.0)
[2022-08-25 17:32] LABS: Platelet Count 82 X10*3/uL (160-400)
[2022-08-25] MEDS: Lidocaine 4 % Patch ADH..PATCH 1 PATCH TRANSDERMA (20:19)
[2022-08-25] MEDS: Ketorolac Tromethamine 15 MG/ML VIAL 30 MG IM (20:19)
[2022-08-25 22:00] VITALS: BP 114/63; PULSE 68; RESP 18; TEMP 36.7; O2SAT 100
[2022-08-25 22:09] LABS: OBS Int Ctl Valid YES; OBS1 NEGATIVE (NEGATIVE)
[2022-08-25 23:10] VITALS: BP 132/68; PULSE 67; RESP 18; TEMP 37.1; O2SAT 100
== END 2022-08-25 23:10 | disposition home or self-care (01) ==
PROVIDERS: Physician Assistant; Emergency Provider Internal Medicine; PCP Family Medicine
DX: K74.60 Unspecified cirrhosis of liver (principal); M54.50 Low back pain, unspecified; R10.11 Right upper quadrant pain; F17.200 Nicotine dependence, unspecified, uncomplicated; Z71.6 Tobacco abuse counseling; Z79.899 Other long term (current) drug therapy
CPT/HCPCS: 36415; 74176; 76705; 80053; 81001; 81003; 82272; 83690; 83735; 84484; 85025; 93005; 96372; 99284; 99285; J1885

== ENCOUNTER → 2022-08-25 16:36 | Outpatient (BNV) | payer MEDICAID, SELFPAY | PROVIDERS: Emergency Provider Internal Medicine; PCP Family Medicine; Visit Provider Internal Medicine Cardiovascular Disease | DX: R07.9 Chest pain, unspecified (principal) | CPT/HCPCS: 93010 ==

== ENCOUNTER 2022-09-10 16:49 | Emergency (ER) | payer MEDICAID, SELFPAY | END 2022-09-10 17:04 | disposition left against medical advice (07) | PROVIDERS: Emergency Provider Emergency Medicine | DX: Z77.21 Contact with and (suspected) exposure to potentially hazardous body fluids (principal) ==

== ENCOUNTER 2022-09-11 15:31 | Emergency (ER) | payer MEDICAID, SELFPAY ==
[2022-09-11 17:30] VITALS: BP 152/80; PULSE 73; RESP 18; TEMP 36; O2SAT 99; BMI 43.1
--- NOTE | 2022-09-11 17:50 | ED_ITS ---
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 he states he was cleaning out the trash at a car wash when he stuck his right index finger with a needle that was in the garbage. He had some mild bleeding at the time. He cleaned it out with hand pain management physician immediately. He was trying to get in with his primary care doctor at the clinic but was unable to do so until today. They recommended he come here for blood work. Symptoms since prior visit: no new symptoms Associated symptoms: none Related Data Home Medications Medication Instructions Recorded Confirmed cholecalciferol (vitamin D3) 25 25 mcg PO DAILY 11/15/19 03/17/22 mcg (1,000 unit) tablet (Vitamin D3) dexlansoprazole 60 mg 60 mg PO DAILY 11/15/19 03/17/22 capsule,biphase delayed release (Dexilant) lancets 33 gauge (TRUEplus Lancets) #100 ea 11/15/19 03/17/22 pen needle, diabetic 32 gauge x #50 ea 11/15/19 03/17/22 5/32 (Unifine Pentips) blood sugar diagnostic (FreeStyle #10 ea 05/03/21 03/17/22 Lite Strips) insulin glargine U-300 conc 300 20 unit subcut DAILY 05/03/21 03/17/22 unit/mL (1.5 mL) subcutaneous pen (Toujeo SoloStar U-300 Insulin) albuterol sulfate 90 mcg/actuation 2 puff inhalation Q4-6H PRN dyspnea 08/09/21 03/17/22 aerosol inhaler (ProAir HFA) cetirizine 10 mg tablet 10 mg PO BEDTIME 08/09/21 03/17/22 chlorthalidone 25 mg tablet 25 mg PO QAM 08/09/21 03/17/22 fluticasone propionate 110 1 puff PO BID 08/09/21 03/17/22 mcg/actuation HFA aerosol inhaler (Flovent HFA) fluticasone propionate 50 1 spray intranasal DAILY 08/09/21 03/17/22 mcg/actuation nasal spray,suspension glipizide 5 mg tablet 5 mg PO BID 08/09/21 03/17/22 insulin aspart U-100 100 unit/mL 10 unit subcut DIRECTED 08/09/21 03/17/22 (3 mL) subcutaneous pen lidocaine 5 % topical patch 0 patch topical 08/09/21 03/17/22 (Lidoderm) metoprolol succinate 50 mg 50 mg PO QAM 08/09/21 03/17/22 tablet,extended release 24 hr tramadol 50 mg tablet 50 mg PO Q12H PRN 08/09/21 03/17/22 montelukast 10 mg tablet 10 mg PO BEDTIME PRN 03/17/22 03/17/22 Previous Rx's Medication Instructions Recorded acetaminophen 500 mg tablet 500 mg PO Q6H PRN pain or fever 12/24/19 (Tylenol Extra Strength) #20 tabs tadalafil 5 mg tablet 5 mg PO DAILY sexual activity 90 02/07/22 days #90 tabs tamsulosin 0.4 mg capsule 0.4 mg PO DAILY 90 days #90 caps 02/27/22 Allergies Allergy/AdvReac Type Severity Reaction Status Date / Time ranitidine [From ZANTAC] Allergy Severe DIFFICULTY Verified 03/17/22 10:46 BREATHING, ITCHING Review of Systems Review of Systems: Yes all other systems are reviewed and are negative PMFSH Past Medical History Medical History Arthritis Asthma Chronic back pain Cirrhosis Colitis COVID-19 Diabetes Dysuria Fatty liver Gallstones GERD (gastroesophageal reflux disease) History of anxiety History of depression History of tachycardia HTN (hypertension) Hx of gastritis Lipoma of neck Morbid obesity Obesity On beta alma at home OLIVER on CPAP Subcutaneous mass of neck Surgical History History of esophagogastroduodenoscopy (EGD) History of left knee surgery Hx of elbow surgery S/P cubital tunnel release Family History Family History Father No problems noted. Mother HTN (hypertension) Sister Type II diabetes mellitus Social History Social History Are you a primary career guidance counselor to a significant other at home: No Do you presently have visiting nurse or other home services: No Alcohol intake: current Alcohol intake frequency: holidays/special occasions only Alcohol type: beer Patient Tobacco Use Status: Current someday Tobacco user Tobacco use type: Cigarette Substance Use Type: Marijuana Advance Directives: No Advance Directives Information Provided: No service: No Current occupational status: unemployed and disabled Physical Exam Vital Signs: Vital Signs: Last Vital Signs Temp 96.8 F 09/11/22 17:30 Pulse 73 09/11/22 17:30 Resp 18 09/11/22 17:30 BP 152/80 H 09/11/22 17:30 Pulse Ox 99 09/11/22 17:30 O2 Del Method Room Air 09/11/22 17:30 BMI result Body Mass Index 43.1 Appearance: Alert. Oriented X3. No acute distress. HEENT: normal inspection CVS: Normal heart rate and rhythm. Pulses normal. Respiratory: No respiratory distress. Skin: Skin warm and dry. Normal skin color. Normal skin turgor. No rashes. Extremities: normal inspection x4. no visible puncture wound on the right index finger Neuro: Oriented X 3. grossly normal, nonfocal Medical Decision Making Medical Decision Making [facility] Narrative: 47-year-old male with multiple medical problems including WEBBER cirrhosis, diabetes, obesity, HTN who presents to the ER for evaluation of an accidental needlestick 4 days ago. Given his exposure was greater than 72 hours ago it is not recommended that he get post exposure prophylaxis antiviral medication. he had a low risk exposure with superficial puncture wound. director telemetry was used to discuss low risk exposure and no indication for PEP. patient agrees with plan. Hepatitis panel and HIV status were sent. He will need repeats by his outpatient provider. Stable for discharge home Differential Diagnosis Differential Diagnoses: The differential diagnosis associated with the presentation includes low risk HIV/hepatitis exposure, high risk exposure, cellulitis Lab Data [facility] Lab Attestation statement: I reviewed the patient's lab results. stable anemia and transaminitis 09/11/22 18:16 09/11/22 18:16 External Record Review External record reviewed: Outpatient record and Prior outpatient labs Prescription Management I considered prescription management with: Antiviral Chronic Conditions Patient?s care impacted by: Diabetes, Hypertension and Other (liver cirrhosis) Critical Care Time Critical Care Time Critical Care Time: No Discharge Plan Discharge Clinical Impression: Accidental hypodermic needlestick injury Patient Disposition: Home, Self-Care Instructions: Needle Stick Injuries (ED) Additional Instructions: your needle stick injury was >72 hours ago, prophylaxis medication is not recommended at this time your lab work was at your baseline recommend following up with your primary care doctor repeat hepatitis panel and HIV testing foreman lesi?n por pinchazo de aguja fue hace> 72 horas, no se recomienda la medicaci?n profil?ctica en alcides momento foreman trabajo de laboratorio estaba en foreman l?emilia de base recomendar un seguimiento con foreman m?dico de atenci?n primaria repetir el panel de hepatitis y la prueba del VIH Prescriptions: No Action tamsulosin 0.4 mg capsule 0.4 mg PO DAILY 90 Days Qty: 90 3RF acetaminophen [Tylenol Extra Strength] 500 mg tablet 500 mg PO Q6H PRN (Reason: pain or fever) Qty: 20 0RF montelukast 10 mg tablet 10 mg PO BEDTIME PRN Dexilant 60 mg capsule,biphase delayed releas 60 mg PO DAILY (DME) pen needle, diabetic [Unifine Pentips] 32 gauge x 5/32 needle See Rx Instructions .ROUTE .MEDSUPPLY Qty: 50 Rx Instructions: As directed (DME) lancets [TRUEplus Lancets] 33 gauge misc See Rx Instructions .ROUTE .MEDSUPPLY Qty: 100 Rx Instructions: As directed cholecalciferol (vitamin D3) [Vitamin D3] 25 mcg (1,000 unit) tablet 25 mcg PO DAILY Toujeo SoloStar U-300 Insulin 300 unit/mL (1.5 mL) insulin pen 20 unit subcut DAILY (DME) FreeStyle Lite Strips Strip See Rx Instructions Not Applicable QID Qty: 10 Rx Instructions: As directed lidocaine [Lidoderm] 5 % adhesive patch,medicated 0 patch topical tramadol 50 mg tablet 50 mg PO Q12H PRN fluticasone propionate [Flovent HFA] 110 mcg/actuation HFA aerosol inhaler 1 puff PO BID fluticasone propionate 50 mcg/actuation spray,suspension 1 spray intranasal DAILY glipizide 5 mg tablet 5 mg PO BID chlorthalidone 25 mg tablet 25 mg PO QAM metoprolol succinate 50 mg tablet extended release 24 hr 50 mg PO QAM insulin aspart U-100 100 unit/mL (3 mL) insulin pen 10 unit subcut DIRECTED albuterol sulfate [ProAir HFA] 90 mcg/actuation HFA aerosol inhaler 2 puff inhalation Q4-6H PRN (Reason: dyspnea) cetirizine 10 mg tablet 10 mg PO BEDTIME tadalafil 5 mg tablet 5 mg PO DAILY 90 Days Qty: 90 1RF Referrals: Hanna Ocasio MD [Primary Care Provider] - Print Language: Chinese
[2022-09-11 18:23] LABS: MANUAL DIFF FLAG NO
[2022-09-11 18:26] LABS: Hemoglobin 13.3 g/dl (14.0-18.0); Imm Gran Abs Auto 0.01 X10*3/uL (0.00-0.03); Imm Gran Pct Auto 0.2 % (0.0-0.4); PLT CLUMP 1; SCAN SMEAR FLAG 1
[2022-09-11 18:28] LABS: Basophils Percent Auto 0.2 % (0-2); Eosinophils Absolute Auto 0.1 X10*3/uL (0.0-0.4); Eosinophils Percent Auto 1.6 % (0-4); Hematocrit 40.1 % (42.0-52.0); Lymphocytes Absolute Auto 1.6 X10*3/uL (1.2-4.9); Lymphocytes Percent Auto 31.9 % (20-40); Mean Corpuscular HGB Conc 33.2 g/dl (31.0-36.0); Mean Corpuscular Hemoglobin 32.8 pg (27.0-33.0); Mean Platelet Volume 10.2 fL (9.4-12.4); Monocytes Absolute Auto 0.5 X10*3/uL (0.1-1.2); Monocytes Percent Auto 10.4 % (2-11); Neutrophils Absolute Auto 2.7 x10*3/uL (2.0-8.3); Neutrophils Percent Auto 55.7 % (45-73); Red Blood Count 4.05 X10*6/uL (4.60-5.80); Red Cell Distribution Width 14.4 % (11.0-16.0)
[2022-09-11 18:30] LABS: Platelet Count 90 X10*3/uL (160-400); White Blood Count 4.9 X10*3/uL (4.8-10.8)
[2022-09-11 19:00] LABS: Alanine Aminotransferase 49 U/L (0-40); Alkaline Phosphatase 115 U/L (39-117); Amylase 96 U/L (28-100); Anion Gap 12 (12-20); Aspartate Amino Transferase 77 U/L (5-37); Bilirubin Direct 0.5 mg/dL (0.0-0.5); Bilirubin Total 1.1 mg/dL (0.0-1.0); Blood Urea Nitrogen 6 mg/dL (9-16); Carbon Dioxide 23 mmol/L (22-29); Chloride 105 mmol/L (96-108); Creatinine Clr Calc Pharmacy 182.8; Estimated Glomerular Filt Rate > 60; Glucose Random 169 mg/dL (60-115); Lipase 34 U/L (8-78); Potassium 4.3 mmol/L (3.3-5.1); Sodium 136 mmol/L (135-145); Total Protein 7.7 g/dL (6.5-8.0)
[2022-09-11 19:02] LABS: Ethanol < 10 mg/dL
[2022-09-11] MEDS: Diphth,Pertus(ACell),Tet Adult 0.5 ML SYRINGE IM (19:04)
[2022-09-12 10:42] LABS: HIV AB/AG Nonreactive (Nonreactive); HIV Num 1 0.05 S/CO (0.00-0.99)
[2022-09-12 11:44] LABS: HBS Num1 26.42 mIU/mL (0-7.99); HBc Num1 0.25 S/CO (0.00-0.79); HBsAGNum1 0.41 S/CO (0.00-0.99); Hepatitis B Core Antibody Nonreactive (Nonreactive); Hepatitis B Surface Antigen Negative (Negative); ~HepC Num1 0.17 S/CO (0.00-0.79); ~Hepatitis B Surface Antibody REACTIVE (Nonreactive); ~Hepatitis C Antibody Nonreactive (Nonreactive)
== END 2022-09-11 19:13 | disposition home or self-care (01) ==
PROVIDERS: Physician Assistant Medical; Emergency Provider Internal Medicine; PCP Family Medicine
DX: S61.230A Puncture wound without foreign body of right index finger without damage to nail, initial encounter (principal); S60.410A Abrasion of right index finger, initial encounter; R79.89 Other specified abnormal findings of blood chemistry; E11.9 Type 2 diabetes mellitus without complications; X58.XXXA Exposure to other specified factors, initial encounter; Y93.9 Activity, unspecified; Y92.9 Unspecified place or not applicable; Y99.0 Civilian activity done for income or pay; Z79.899 Other long term (current) drug therapy; Z79.4 Long term (current) use of insulin; Z23 Encounter for immunization
CPT/HCPCS: 36415; 80048; 80076; 80307; 82150; 83690; 85025; 86704; 86706; 86803; 87340; 87389; 90471; 90715; 99282; 99284

== ENCOUNTER 2022-10-07 15:41 | Outpatient (REF) | payer MEDICAID, SELFPAY ==
[2022-10-07 17:48] LABS: Mean Corpuscular Volume 99.5 fL (80.0-98.0); PLT CLUMP 1; SCAN SMEAR FLAG 1
[2022-10-07 17:51] LABS: Basophils Percent Auto 0.6 % (0-2); Eosinophils Absolute Auto 0.1 X10*3/uL (0.0-0.4); Eosinophils Percent Auto 1.7 % (0-4); Hematocrit 37.9 % (42.0-52.0); Hemoglobin 12.8 g/dl (14.0-18.0); Imm Gran Abs Auto 0.02 X10*3/uL (0.00-0.03); Imm Gran Pct Auto 0.4 % (0.0-0.4); Lymphocytes Absolute Auto 1.9 X10*3/uL (1.2-4.9); Lymphocytes Percent Auto 36.1 % (20-40); MANUAL DIFF FLAG SCAN; Mean Corpuscular HGB Conc 33.8 g/dl (31.0-36.0); Mean Corpuscular Hemoglobin 33.6 pg (27.0-33.0); Mean Platelet Volume 11.2 fL (9.4-12.4); Monocytes Absolute Auto 0.5 X10*3/uL (0.1-1.2); Monocytes Percent Auto 9.9 % (2-11); Neutrophils Absolute Auto 2.7 x10*3/uL (2.0-8.3); Neutrophils Percent Auto 51.3 % (45-73); Red Blood Count 3.81 X10*6/uL (4.60-5.80); Red Cell Distribution Width 15.2 % (11.0-16.0)
[2022-10-07 17:59] LABS: White Blood Count 5.2 X10*3/uL (4.8-10.8)
[2022-10-07 18:00] LABS: Estimated Average Glucose 154 mg/dL; Platelet Count 92 X10*3/uL (160-400)
[2022-10-07 18:03] LABS: Alanine Aminotransferase 46 U/L (0-40); Alkaline Phosphatase 122 U/L (39-117); Anion Gap 11 (12-20); Aspartate Amino Transferase 63 U/L (5-37); Bilirubin Total 1.1 mg/dL (0.0-1.0); Blood Urea Nitrogen 6 mg/dL (9-16); Calcium 9.1 mg/dL (8.4-10.2); Carbon Dioxide 25 mmol/L (22-29); Chloride 106 mmol/L (96-108); Estimated Glomerular Filt Rate > 60; Glucose Random 125 mg/dL (60-115); Iron 237 mcg/dL (45-160); Percent Iron Saturation 90 % (15-50); Potassium 3.8 mmol/L (3.3-5.1); Sodium 138 mmol/L (135-145); Total Iron Binding Capacity 262 mcg/dL (228-428); Total Protein 7.8 g/dL (6.5-8.0); Unsaturated Iron Binding < 25 ug/dL
[2022-10-07 18:19] LABS: Ferritin 75 ng/mL (20-250); TSH reflex Free T4 1.36 uIU/mL (0.32-4.0)
[2022-10-07 19:07] LABS: SLIDE REVIEW VERIFIED
== END 2022-10-07 15:42 | disposition home or self-care (01) ==
LOC: HO.HHCL 15:41
PROVIDERS: Visit Provider Family Medicine
DX: R53.83 Other fatigue (principal); E11.65 Type 2 diabetes mellitus with hyperglycemia; Z79.4 Long term (current) use of insulin; D64.9 Anemia, unspecified
CPT/HCPCS: 36415; 80053; 82728; 83036; 83540; 84443; 85025

== ENCOUNTER 2022-10-23 12:32 | Outpatient (REF) | payer MEDICAID, SELFPAY ==
[2022-10-24 04:31] LABS: Syphilis Screen Nonreactive (Nonreactive)
[2022-10-24 04:41] LABS: HBS Num1 20.13 mIU/mL (0-7.99); HBc Num1 0.19 S/CO (0.00-0.79); HBsAGNum1 0.28 S/CO (0.00-0.99); HIV AB/AG Nonreactive (Nonreactive); HIV Num 1 0.04 S/CO (0.00-0.99); Hepatitis B Core Antibody Nonreactive (Nonreactive); Hepatitis B Surface Antigen Negative (Negative); ~Hepatitis B Surface Antibody REACTIVE (Nonreactive)
[2022-10-24 04:47] LABS: ~HepC Num1 0.37 S/CO (0.00-0.79); ~Hepatitis C Antibody Nonreactive (Nonreactive)
[2022-10-25 22:17] LABS: TS Negative Control Passed; TS Panel A 0; TS Panel B 0; TS Positive Control Passed; TSpotTB Negative (Negative)
== END 2022-10-23 12:33 | disposition home or self-care (01) ==
LOC: HO.HHCL 12:32
PROVIDERS: Visit Provider Family Medicine
DX: Z11.1 Encounter for screening for respiratory tuberculosis (principal); Z11.4 Encounter for screening for human immunodeficiency virus [HIV]; Z20.9 Contact with and (suspected) exposure to unspecified communicable disease; W46.0XXD Contact with hypodermic needle, subsequent encounter
CPT/HCPCS: 36415; 86481; 86704; 86706; 86780; 86803; 87340; 87389

== ENCOUNTER 2022-11-17 11:15 | Outpatient (AMB) | payer MEDICAID, SELFPAY ==
--- NOTE | 2022-11-17 11:17 | A.OFFVIS_ITS ---
Intake Vital Signs 11/17/22 11:18 Height 5 ft 8 in Weight 287 lb 14.779 oz BMI 43.8 BP 129/70 Blood Pressure Location Lt brachial Position Sitting Pulse 104 H Intake Visit Reasons: F/U ED Intake Note: Patient presents to in office visit today in follow up of ED. CC: Patient reports doing well, he reports occasional abdominal bloating, and a lot of gas. He was seen in the ED on 09/11 for a needle stick accident at work and on 08/25 with abdominal pain. He reports an US was done at his last ED visit. Allergies ranitidine [From ZANTAC] Allergy (Severe, Verified 11/17/22 11:23) DIFFICULTY BREATHING, ITCHING HPI F/U ED HPI Details 47 yr old m being seen for f/u RECAP pt of liz, hx of cirrhosis MRI with hemangiomas. nodular appearing liver, fatty liver no evidence of HCC he was given trental and stopped due to nausea, dizziness LABS from past-ne g celiac, neg viral hep screens, mild raised SMA, neg SLA, raised IGG normal plts. u/s 10/2018-- F3-4 on elastography but smapling error, no liver lesions, steatosis, coarse liver EGD with hyperplastic polyp removed, small varices, gastritis u/s 10/2019-- steatosis, possible cirrhosis LABS: 11/2019-- INR- 1.1, HGB nml, plt 178, AST/ALT mildly elevated US 08/2022-- cirrhosis, gallstones LABS: INTERIM feels bloated no abdominal pain still drinking beers 10 per week dm control is good, but weight hard to managr appetite is good, weight stable EXAM: GENERAL: The patient is well developed and nontoxic,obese VITAL SIGNS:see workflow HEENT: Nonicteric sclerae, PERRLA, EOMI. Oropharynx clear. Moist mucous membranes. Conjunctivae appear well perfused. No thyroid mass. CHEST: Chest wall is nontender. HEART: Regular rate and rhythm without murmurs. LUNGS: Clear to auscultation bilaterally. ABDOMEN: Soft, positive bowel sounds, nontender, no organomegaly.no flank tenderness SKIN: No rash, no excessive bruising, petechiae, or purpura. NEUROLOGIC: Cranial nerves II-XII intact without motor/sensory deficit. Assessment & Plan (1) Cirrhosis: WEBBER possible v early cir rhosis or F3 damage, SMA was pos low level titer, other serologies neg--still drinking alcohol (2) Hyperplastic polyp of stomach: with chronic borderline anemia (3) Chronic epigastric pain: posisbly fr om gallstones, not a big issue right now PLAN: 1/ advised on diet and weight loss, heal thy eating, avoid alcohol as before with total abstinence, can take coffee 2/ US liver for HCC and elastography 3/ rept labs now 4/ eGD later in year and colonoscopy aft er next visit 5/ refer nutrition and [facility] endocrin e for consideration of ozempic, he would probably benefit from this, maybe PCP can prescribe? [facility] Medical History Arthritis Asthma Chronic back pain Cirrhosis Colitis COVID-19 Diabetes Dysuria Fatty liver Gallstones GERD (gastroesophageal reflux disease) History of anxiety History of depression History of tachycardia HTN (hypertension) Hx of gastritis Lipoma of neck Morbid obesity Obesity On beta alma at home OLIVER on CPAP Subcutaneous mass of neck Surgical History History of esophagogastroduodenoscopy (EGD) History of left knee surgery Hx of elbow surgery S/P cubital tunnel release Family History Father No problems noted. Mother HTN (hypertension) Sister Type II diabetes mellitus Social History Are you a primary healthcare administration internship to a significant other at home: No Do you presently have visiting nurse or other home services: No Alcohol intake: current Alcohol intake frequency: holidays/special occasions only Alcohol type: beer Patient Tobacco Use Status: Current someday Tobacco user Tobacco use type: Cigarette Substance Use Type: Marijuana service: No Current occupational status: unemployed and disabled Physical Exam Vital Signs: Last Vital Signs Pulse 104 H 11/17/22 11:18 BP 129/70 11/17/22 11:18 BMI result Body Mass Index 43.8 Assessment & Plan Assessment & Plan (1) Morbid obesity: Code(s): E66.01 - Morbid (severe) obesity due to excess calories (2) Fatty liver: Code(s): K76.0 - Fatty (change of) liver, not elsewhere classified (3) GERD (gastroesophageal reflux disease): Code(s): K21.9 - Gastro-esophageal reflux disease without esophagitis (4) Diabetes: Comment: IDDM Code(s): E11.9 - Type 2 diabetes mellitus without complications (5) Hyperplastic polyp of stomach: Code(s): K31.7 - Polyp of stomach and duodenum Orders: Orders Prothrombin Time INR Today E66.01 - Morbid (severe) obesity due to excess calories, K31.7 - Polyp of stomach and duodenum, K76.0 - Fatty (change of) liver, not elsewhere classified Vitamin A Today E66.01 - Morbid (severe) obesity due to excess calories, K31.7 - Polyp of stomach and duodenum, K76.0 - Fatty (change of) liver, not elsewhere classified Vitamin B1 Today E66.01 - Morbid (severe) obesity due to excess calories, K31.7 - Polyp of stomach and duodenum, K76.0 - Fatty (change of) liver, not elsewhere classified Vitamin B3 (Niacin) Today E66.01 - Morbid (severe) obesity due to excess calories, K31.7 - Polyp of stomach and duodenum, K76.0 - Fatty (change of) liver, not elsewhere classified Vitamin E Today E66.01 - Morbid (severe) obesity due to excess calories, K31.7 - Polyp of stomach and duodenum, K76.0 - Fatty (change of) liver, not elsewhere classified Vitamin K1 Today E66.01 - Morbid (severe) obesity due to excess calories, K31.7 - Polyp of stomach and duodenum, K76.0 - Fatty (change of) liver, not elsewhere classified Zinc Today E66.01 - Morbid (severe) obesity due to excess calories, K31.7 - Polyp of stomach and duodenum, K76.0 - Fatty (change of) liver, not elsewhere classified Complete Blood Count Auto Diff Today E66.01 - Morbid (severe) obesity due to excess calories, K31.7 - Polyp of stomach and duodenum, K76.0 - Fatty (change of) liver, not elsewhere classified Comprehensive Met. Panel Today E66.01 - Morbid (severe) obesity due to excess calories, K31.7 - Polyp of stomach and duodenum, K75.81 - Nonalcoholic steatohepatitis (WEBBER), K76.0 - Fatty (change of) liver, not elsewhere classified Vitamin B12 and Folate Today E66.01 - Morbid (severe) obesity due to excess calories, K31.7 - Polyp of stomach and duodenum, K76.0 - Fatty (change of) liver, not elsewhere classified Vitamin B5 (Pantothenic Acid) Today E66.01 - Morbid (severe) obesity due to excess calories, K31.7 - Polyp of stomach and duodenum, K76.0 - Fatty (change of) liver, not elsewhere classified Vitamin B6 Today E66.01 - Morbid (severe) obesity due to excess calories, K31.7 - Polyp of stomach and duodenum, K76.0 - Fatty (change of) liver, not elsewhere classified Vitamin C Today E66.01 - Morbid (severe) obesity due to excess calories, K31.7 - Polyp of stomach and duodenum, K76.0 - Fatty (change of) liver, not elsewhere classified Vitamin D 25-OH Total Today E66.01 - Morbid (severe) obesity due to excess calories, K31.7 - Polyp of stomach and duodenum, K76.0 - Fatty (change of) liver, not elsewhere classified Ferritin Today E66.01 - Morbid (severe) obesity due to excess calories, K31.7 - Polyp of stomach and duodenum, K76.0 - Fatty (change of) liver, not elsewhere classified Hepatitis A,B,C Profile Today E66.01 - Morbid (severe) obesity due to excess calories, K31.7 - Polyp of stomach and duodenum, K76.0 - Fatty (change of) liver, not elsewhere classified US abdomen mondragon w elastography Today K74.60 - Unspecified cirrhosis of liver, K75.81 - Nonalcoholic steatohepatitis (WEBBER) Referrals Endocrinology Referral E11.9 - Type 2 diabetes mellitus without complications, E66.01 - Morbid (severe) obesity due to excess calories, K31.7 - Polyp of stomach and duodenum, K76.0 - Fatty (change of) liver, not elsewhere classified Photographer Nutrition Referral E11.9 - Type 2 diabetes mellitus without complications, E66.01 - Morbid (severe) obesity due to excess calories, K21.9 - Gastro-esophageal reflux disease without esophagitis, K31.7 - Polyp of stomach and duodenum, K76.0 - Fatty (change of) liver, not elsewhere classified Coding Level of Care Code Est Pt Level 4 (08425) Diagnoses Morbid obesity E66.01 Fatty liver K76.0 GERD (gastroesophageal reflux disease) K21.9 Diabetes E11.9 Hyperplastic polyp of stomach K31.7
[2022-11-17 11:18] VITALS: BP 129/70; PULSE 104; BMI 43.8
== END 2022-11-17 12:01 | disposition home or self-care (01) ==
PROVIDERS: PCP Family Medicine; Visit Provider Internal Medicine Gastroenterology
DX: E66.01 Morbid (severe) obesity due to excess calories (principal); K76.0 Fatty (change of) liver, not elsewhere classified; K21.9 Gastro-esophageal reflux disease without esophagitis; E11.9 Type 2 diabetes mellitus without complications; K31.7 Polyp of stomach and duodenum
CPT/HCPCS: 99214

== ENCOUNTER → 2022-11-17 11:15 | Outpatient (BNVA) | payer MEDICAID, SELFPAY | PROVIDERS: PCP Family Medicine; Visit Provider Internal Medicine Gastroenterology | DX: K76.0 Fatty (change of) liver, not elsewhere classified (principal); K31.7 Polyp of stomach and duodenum; E66.01 Morbid (severe) obesity due to excess calories; E11.9 Type 2 diabetes mellitus without complications; Z68.41 Body mass index [BMI] 40.0-44.9, adult | CPT/HCPCS: 99212 ==

== ENCOUNTER 2022-11-21 13:15 | Outpatient (REF) | payer MEDICAID, SELFPAY ==
[2022-11-21 13:40] LABS: MANUAL DIFF FLAG NO
[2022-11-21 13:52] LABS: Basophils Percent Auto 0.6 % (0-2); Eosinophils Absolute Auto 0.1 X10*3/uL (0.0-0.4); Eosinophils Percent Auto 2.2 % (0-4); Hematocrit 39.1 % (42.0-52.0); Hemoglobin 13.5 g/dl (14.0-18.0); Imm Gran Abs Auto 0.01 X10*3/uL (0.00-0.03); Imm Gran Pct Auto 0.2 % (0.0-0.4); Lymphocytes Absolute Auto 1.5 X10*3/uL (1.2-4.9); Lymphocytes Percent Auto 30.5 % (20-40); Mean Corpuscular HGB Conc 34.5 g/dl (31.0-36.0); Mean Corpuscular Hemoglobin 34.5 pg (27.0-33.0); Mean Platelet Volume 10.4 fL (9.4-12.4); Monocytes Absolute Auto 0.5 X10*3/uL (0.1-1.2); Monocytes Percent Auto 8.9 % (2-11); Neutrophils Absolute Auto 2.9 x10*3/uL (2.0-8.3); Neutrophils Percent Auto 57.6 % (45-73); Platelet Count 92 X10*3/uL (160-400); Red Blood Count 3.91 X10*6/uL (4.60-5.80); Red Cell Distribution Width 15.3 % (11.0-16.0); White Blood Count 5.1 X10*3/uL (4.8-10.8)
[2022-11-21 13:58] LABS: INTERNATIONAL NORM RATIO 1.3 (0.9-1.1); Prothrombin Time 15.4 SEC (11.1-13.3)
[2022-11-21 15:18] LABS: Alanine Aminotransferase 54 U/L (0-40); Albumin Level 2.9 g/dL (3.5-5.0); Alkaline Phosphatase 110 U/L (39-117); Anion Gap 11 (12-20); Aspartate Amino Transferase 71 U/L (5-37); Bilirubin Total 1.4 mg/dL (0.0-1.0); Blood Urea Nitrogen 7 mg/dL (9-16); Calcium 8.3 mg/dL (8.4-10.2); Carbon Dioxide 21 mmol/L (22-29); Chloride 108 mmol/L (96-108); Estimated Glomerular Filt Rate > 60; Glucose Random 309 mg/dL (60-115); Potassium 3.9 mmol/L (3.3-5.1); Sodium 136 mmol/L (135-145); Total Protein 7.7 g/dL (6.5-8.0)
[2022-11-21 15:41] LABS: Ferritin 84 ng/mL (20-250); Vitamin D 25-OH Total 23.3 ng/mL (>30)
[2022-11-25 16:47] LABS: Zinc 47 mcg/dL (60-130)
[2022-11-26 15:48] LABS: Vitamin A 5 mcg/dL (38-98)
[2022-11-26 16:29] LABS: Vitamin B1 16 nmol/L (8-30)
[2022-11-27 13:29] LABS: Nicotinamide 34 ng/mL; Vit B3 - Nicotinic Acid <20 ng/mL; Vitamin B5 (Pantothenic Acid) <40 ng/mL (<275)
[2022-11-27 17:28] LABS: Vitamin C 0.9 mg/dL (0.2-2.1)
[2022-11-28 00:58] LABS: Vitamin K1 372 pg/mL (130-1500)
== END 2022-11-21 13:16 | disposition home or self-care (01) ==
LOC: HO.LAB 13:15
PROVIDERS: PCP Family Medicine; Visit Provider Internal Medicine Gastroenterology
DX: E66.01 Morbid (severe) obesity due to excess calories (principal); K31.7 Polyp of stomach and duodenum; K75.81 Nonalcoholic steatohepatitis (NASH)
CPT/HCPCS: 36415; 80053; 82180; 82306; 82607; 82728; 82746; 84207; 84425; 84446; 84590; 84591; 84597; 84630; 85025; 85610; 86704; 86706; 86709; 86803; 87340

== ENCOUNTER 2023-01-28 12:34 | Emergency (ER) | payer MEDICAID, SELFPAY ==
--- NOTE | ~2023-01-28 | XR_ITS ---
EXAMINATION: XR CHEST CLINICAL INFORMATION: Cough and congestion. COMPARISON: 11/26/2021 TECHNIQUE: 2 views of the chest were obtained. FINDINGS: No significant abnormality is noted involving the heart, lungs, mediastinum, bony thorax or soft tissues. XR/XR chest 2V IMPRESSION: Unremarkable examination.
[2023-01-28 12:40] VITALS: BP 140/81; PULSE 95; RESP 18; TEMP 36.7; O2SAT 98; BMI 42.4
--- NOTE | 2023-01-28 12:40 | ED.URI ---
HPI - URI/Sore Throat General Chief Complaint: Upper Respiratory Symptoms Stated Complaint: Fever, congestion Time Seen by Provider: 01/28/23 14:03 Source: patient Mode of arrival: ambulatory Limitations: no limitations History of Present Illness HPI Narrative: Patient is a 47 year old assigned male at with a history of DM and HTN presenting to the emergency department today with body aches and a cough. Patient states that over the last 2 weeks he has had a cough with body aches. Patient denies any dizziness, lightheadedness, abdominal pain, nausea, vomiting, fever, chills, blurry vision, double vision, loss of vision, chest pain, difficulty breathing, shortness of breath, back pain, night sweats, pain with urination, increased urinary frequency, increased urinary urgency, blood in his urine or stool, syncope or a near syncopal episode, recent trauma or falls, bowel incontinence, bladder incontinence, bowel retention, bladder retention, or any other complaints at this time. MD elicited complaint: cough Onset (ago): week(s) (2) Consistency: constant Able to tolerate fluids by mouth: Yes Exacerbating factors: nothing Relieving factors: nothing Associated symptoms: cough Treatments prior to arrival: none Related Data Home Medications Medication Instructions Recorded Confirmed cholecalciferol (vitamin D3) 25 25 mcg PO DAILY 11/15/19 03/17/22 mcg (1,000 unit) tablet (Vitamin D3) dexlansoprazole 60 mg 60 mg PO DAILY 11/15/19 03/17/22 capsule,biphase delayed release (Dexilant) lancets 33 gauge (TRUEplus Lancets) #100 ea 11/15/19 03/17/22 pen needle, diabetic 32 gauge x #50 ea 11/15/19 03/17/22 5/32 (Unifine Pentips) blood sugar diagnostic (FreeStyle #10 ea 05/03/21 03/17/22 Lite Strips) insulin glargine U-300 conc 300 20 unit subcut DAILY 05/03/21 03/17/22 unit/mL (1.5 mL) subcutaneous pen (Toujeo SoloStar U-300 Insulin) albuterol sulfate 90 mcg/actuation 2 puff inhalation Q4-6H PRN dyspnea 08/09/21 03/17/22 aerosol inhaler (ProAir HFA) cetirizine 10 mg tablet 10 mg PO BEDTIME 08/09/21 03/17/22 fluticasone propionate 110 1 puff PO BID 08/09/21 03/17/22 mcg/actuation HFA aerosol inhaler (Flovent HFA) fluticasone propionate 50 1 spray intranasal DAILY 08/09/21 03/17/22 mcg/actuation nasal spray,suspension glipizide 5 mg tablet 5 mg PO BID 08/09/21 03/17/22 insulin aspart U-100 100 unit/mL 10 unit subcut DIRECTED 08/09/21 03/17/22 (3 mL) subcutaneous pen lidocaine 5 % topical patch 0 patch topical 08/09/21 03/17/22 (Lidoderm) metoprolol succinate 50 mg 50 mg PO QAM 08/09/21 03/17/22 tablet,extended release 24 hr montelukast 10 mg tablet 10 mg PO BEDTIME PRN 03/17/22 03/17/22 chlorthalidone 25 mg tablet 12.5 mg PO QAM 11/17/22 Previous Rx's Medication Instructions Recorded acetaminophen 500 mg tablet 500 mg PO Q6H PRN pain or fever 12/24/19 (Tylenol Extra Strength) #20 tabs tamsulosin 0.4 mg capsule 0.4 mg PO DAILY 90 days #90 caps 02/27/22 cholecalciferol (vitamin D3) 25 25 mcg PO DAILY #90 caps 11/27/22 mcg (1,000 unit) capsule tadalafil 5 mg tablet 5 mg PO DAILY sexual activity 90 01/14/23 days #90 tabs vitamin A palmitate 3,000 mcg 3,000 mcg PO DAILY #90 caps 01/14/23 (10,000 unit) capsule zinc sulfate 25 mg zinc (110 mg) 25 mg PO DAILY #90 tabs 01/14/23 tablet (Orazinc) benzonatate 100 mg capsule 100 mg PO BID PRN cough 7 days #14 01/28/23 caps doxycycline hyclate 100 mg tablet 100 mg PO BID 7 days #14 tabs 01/28/23 prednisone 20 mg tablet 20 mg PO DAILY 7 days #7 tabs 01/28/23 Allergies Allergy/AdvReac Type Severity Reaction Status Date / Time ranitidine [From ZANTAC] Allergy Severe DIFFICULTY Verified 11/17/22 11:23 BREATHING, ITCHING Review of Systems Constitutional: Constitutional: Reports no additional constitutional complaints, Reports body ache(s), Denies chills, Denies fever(s) and Denies night sweats Eyes: Eyes: Reports no additional eye complaints, Denies blurry vision, Denies change in vision, Denies diplopia, Denies eye discharge, Denies loss of vision and Denies eye pain ENT: Denies dizziness Cardiovascular: Cardiovascular: Reports no additional cardiovascular complaints, Denies chest pain, Denies lightheadedness, Denies Loss of Consciousness and Denies dyspnea Respiratory: Respiratory: Reports no additional respiratory complaints, Reports cough and Denies dyspnea Gastrointestinal: Gastrointestinal: Reports no additional gastrointestinal complaints, Denies abdominal pain, Denies melena, Denies hematochezia, Denies change in bowel habits and Denies change in stool character Genitourinary: Genitourinary: Reports no additional male genitourinary complaints, Denies hematuria, Denies oliguria, Denies difficulty urinating, Denies dysuria, Denies urinary frequency, Denies urinary hesitancy, Denies urinary incontinence and Denies urinary urgency Musculoskeletal: Musculoskeletal: Reports no additional musculoskeletal complaints, Denies numbness and Denies tingling Neurologic: Denies dizziness, Denies loss of vision, Denies numbness and Denies tingling Psychiatric: Psychiatric: Reports no additional psychiatric complaints Endocrine: Endocrine: Reports no additional endocrine complaints Hematologic/Lymphatic: Hematologic/Lymphatic: Reports no additional hematologic/lymphatic complaints Allergic/Immunologic: Allergic/Immunologic: Reports no additional allergic/immunologic complaints [facility] Past Medical History Attestation statement: The following information was validated with the patient. Source: old records reviewed and nursing notes reviewed Medical History Morbid obesity Gross hematuria Lipoma of neck On beta alma at home History of tachycardia Subcutaneous mass of neck Obesity Hx of gastritis History of anxiety History of depression COVID-19 Colitis Gallstones Asthma HTN (hypertension) Fatty liver Dysuria Arthritis Diabetes GERD (gastroesophageal reflux disease) OLIVER on CPAP Chronic back pain Cirrhosis Surgical History Hx of elbow surgery S/P cubital tunnel release History of esophagogastroduodenoscopy (EGD) History of left knee surgery Family History Family History Father No problems noted. Mother HTN (hypertension) Sister Type II diabetes mellitus Social History Social History Are you a primary aged or disabled carer to a significant other at home: No Do you presently have visiting nurse or other home services: No Alcohol intake: current Alcohol intake frequency: holidays/special occasions only Alcohol type: beer Patient Tobacco Use Status: Current someday Tobacco user Tobacco use type: Cigarette Substance Use Type: Marijuana Advance Directives: No Advance Directives Information Provided: No service: No Current occupational status: unemployed and disabled Physical Exam Vital Signs: Vital Signs: Last Vital Signs Temp 98.7 F 01/28/23 14:57 Pulse 87 01/28/23 14:57 Resp 18 01/28/23 12:40 BP 144/80 H 01/28/23 14:57 Pulse Ox 97 01/28/23 14:57 O2 Del Method Room Air 01/28/23 14:57 BMI result Body Mass Index 42.4 Const: General: cooperative, no acute distress, alert and awake Nutritional Appearance: well nourished Orientation/consciousness: patient oriented x3 Limitations: no limitations HEENT: Head: Yes normal to inspection and Yes atraumatic Ears: hearing grossly normal bilaterally and external ears normal General nose exam: Normal external nose present, no nasal discharge noted and no epistaxis Face and sinus: Yes normal facial exam, No abrasion and No laceration Mouth: Normal oral and palatal mucosa present, no drooling and no muffled voice Eyes: General: appearance normal, both eyes and all related structures Periorbital: periorbital findings normal Eyelids: Yes eyelids normal Conjunctivae: conjunctivae normal Pupils: Equal, round and reactive pupils present EOM: EOMs intact bilaterally Neck: Neck: Yes normal visual inspection, Yes full ROM and Yes no lymphadenopathy Chest: Chest palpation & inspection: normal inspection of the chest Resp: Effort & Inspection: normal respiratory effort and able to speak in complete sentences Auscultation: clear to auscultation bilaterally GI: Inspection: Yes normal to inspection Neuro: General: patient oriented x3 and moves all extremities Cranial nerves: Yes Equal, round and reactive pupils present Cognition (Neuro): normal cognition Motor exam (neuro): 5/5 motor strength present throughout Sensory Exam: Normal double simultaneous stimulation for sensation Coordination: [id number] test normal Extrem: General: Yes normal to inspection, Yes full ROM and Yes capillary refill normal Psych: Appearance: grossly normal Mental Status: mental status grossly normal Affect: normal affect Attitude: cooperative Thought process: Normal thought process present Thought content: Normal thought content present Insight: Good insight present (Psych) Course Course Course Narrative: RME: 47yo M w/PMHx HTN, DM, OLIVER on CPAP, depression/anxiety, c/o itchy eyes, rhinorrhea, fever (Tmax 101), myalgias, cough, SOB x2 weeks. taking OTC meds w/o relief. Viral testing, CXR ordered Full HPI, ROS and PE to be performed by primary ED provider. Medical Decision Making Medical Decision Making [facility] Narrative: Patient is a 47 year old assigned male at with a history of HTN and DM presenting to the emergency department today with body aches and a cough. Patient's physical exam was unremarkable. Patient's chest x-ray showed no acute process. Patient's COVID-19/Influenza swabs was negative. I explained my physical exam findings as well as all test results to the patient. I answered all questions asked by the patient. Given patient's clinical presentation and comorbidites, will treat. I stressed the importance of the patient taking his medication as prescribed. I stressed the importance of the patient following up with his primary care provider. I stressed the importance of the patient returning to the emergency department immediately if his symptoms were to worsen or if he were to develop any dizziness, shortness of breath, difficulty breathing, chest pain, blurry vision, loss of vision, nausea, vomiting, abdominal pain, fever, chills, back pain, or any other complaints. Patient verbalized agreement and understanding with this treatment plan and discharge. Differential Diagnosis Differential Diagnoses: The differential diagnosis associated with the presentation includes Bronchitis URI COVID-19 Influenza PNA Admission/Observation Consideration of admission/observation: Escalation of care including admission/observation considered Patient would have been admitted to the hospital had his work up had any findings where hospital admission was appropriate and his clinical presentation warranted hospital admission. Lab Data [facility] Lab Attestation statement: I reviewed the patient's lab results. My interpretation of these studies and their corresponding values is that they are grossly normal. Labs: Lab Results 01/28/23 Range/Units 13:26 COVID-19 ([facility]) Negative (Negative) COVID-19 Clin Com See Note Influenza Type A ([facility]) Negative (Negative) Influenza Type B ([facility]) Negative (Negative) Influenza A & B Note See Note Independent Interpretation I performed an independent interpretation of an: Plain X-Ray Interpretation: My interpretation is in agreement with the radiologist's impression of this imaging study. EXAMINATION: XR CHEST CLINICAL INFORMATION: Cough and congestion. COMPARISON: 11/26/2021 TECHNIQUE: 2 views of the chest were obtained. FINDINGS: No significant abnormality is noted involving the heart, lungs, mediastinum, bony thorax or soft tissues. XR/XR chest 2V IMPRESSION: Unremarkable examination. Dictated By: Gaurang Sesay Signed By: Electronically signed by Gaurang Sesay 01/28/23 1431 Radiology Impression Discussion of test interpretation with radiology: I have reviewed the radiologist's reading. Prescription Management I considered prescription management with: Antibiotic (patient prescribed an antibiotic) Chronic Conditions Patient?s care impacted by: Diabetes and Hypertension Discharge Plan Discharge Clinical Impression: Bronchitis Patient Disposition: Home, Self-Care Instructions: Acute Bronchitis (ED) Additional Instructions: Follow up with your primary care provider. Return to the emergency department immediately if your symptoms worsen or if you develop any dizziness, shortness of breath, difficulty breathing, chest pain, blurry vision, loss of vision, nausea, vomiting, abdominal pain, fever, chills, back pain, or any other complaints. Prescriptions: New prednisone 20 mg tablet 20 mg PO DAILY 7 Days Qty: 7 0RF benzonatate 100 mg capsule 100 mg PO BID PRN (Reason: cough) 7 Days Qty: 14 0RF doxycycline hyclate 100 mg tablet 100 mg PO BID 7 Days Qty: 14 0RF No Action tamsulosin 0.4 mg capsule 0.4 mg PO DAILY 90 Days Qty: 90 3RF cholecalciferol (vitamin D3) 25 mcg (1,000 unit) capsule 25 mcg PO DAILY Qty: 90 2RF vitamin A palmitate 3,000 mcg (10,000 unit) capsule 3,000 mcg PO DAILY Qty: 90 2RF Orazinc 25 mg zinc (110 mg) tablet 25 mg PO DAILY Qty: 90 2RF tadalafil 5 mg tablet 5 mg PO DAILY 90 Days Qty: 90 1RF acetaminophen [Tylenol Extra Strength] 500 mg tablet 500 mg PO Q6H PRN (Reason: pain or fever) Qty: 20 0RF montelukast 10 mg tablet 10 mg PO BEDTIME PRN Dexilant 60 mg capsule,biphase delayed releas 60 mg PO DAILY (DME) pen needle, diabetic [Unifine Pentips] 32 gauge x /32 needle See Rx Instructions .ROUTE .MEDSUPPLY Qty: 50 Rx Instructions: As directed (DME) lancets [TRUEplus Lancets] 33 gauge misc See Rx Instructions .ROUTE .MEDSUPPLY Qty: 100 Rx Instructions: As directed cholecalciferol (vitamin D3) [Vitamin D3] 25 mcg (1,000 unit) tablet 25 mcg PO DAILY Toujeo SoloStar U-300 Insulin 300 unit/mL (1.5 mL) insulin pen 20 unit subcut DAILY (DME) FreeStyle Lite Strips Strip See Rx Instructions Not Applicable QID Qty: 10 Rx Instructions: As directed lidocaine [Lidoderm] 5 % adhesive patch,medicated 0 patch topical fluticasone propionate [Flovent HFA] 110 mcg/actuation HFA aerosol inhaler 1 puff PO BID fluticasone propionate 50 mcg/actuation spray,suspension 1 spray intranasal DAILY glipizide 5 mg tablet 5 mg PO BID metoprolol succinate 50 mg tablet extended release 24 hr 50 mg PO QAM insulin aspart U-100 100 unit/mL (3 mL) insulin pen 10 unit subcut DIRECTED albuterol sulfate [ProAir HFA] 90 mcg/actuation HFA aerosol inhaler 2 puff inhalation Q4-6H PRN (Reason: dyspnea) cetirizine 10 mg tablet 10 mg PO BEDTIME chlorthalidone 25 mg tablet 12.5 mg PO QAM Referrals: Hanna Ocasio MD [Primary Care Provider] - Stand Alone Forms: Work/School Release Interventions: ED Discharge Assessment Last Done: 01/28/23 15:01 Discharge Date/Time: 01/28/23 15:01 Print Language: Malay
[2023-01-28 13:57] LABS: COVID-19 Test Negative (Negative); IDNOW Serial# BCCEAD1C
[2023-01-28 14:25] LABS: IDNOW Serial# 9DB6401D; Influenza A Negative (Negative)
[2023-01-28 14:26] LABS: Influenza B2 Negative (Negative)
[2023-01-28 14:57] VITALS: BP 144/80; PULSE 87; TEMP 37.1; O2SAT 97
== END 2023-01-28 15:01 | disposition home or self-care (01) ==
PROVIDERS: Physician Assistant; Emergency Provider Student in an Organized Health Care Education/Training Program; PCP Family Medicine
DX: J40 Bronchitis, not specified as acute or chronic (principal); R50.9 Fever, unspecified; Z11.52 Encounter for screening for COVID-19; E11.9 Type 2 diabetes mellitus without complications; I10 Essential (primary) hypertension; F17.210 Nicotine dependence, cigarettes, uncomplicated; F12.90 Cannabis use, unspecified, uncomplicated
CPT/HCPCS: 71046; 87502; 87635; 99282; 99283

== ENCOUNTER 2023-02-06 10:29 | Outpatient (AMB) | payer MEDICAID, SELFPAY ==
--- NOTE | 2023-02-06 10:29 | MHC.OFFVIS ---
Intake Intake Visit Reasons: one year follow up Intake Note: Patient is Present for Telephone Follow Up Urology Med: Tadalafil, Tamsulosin Antibiotic Allergy: None Blood Thinner: None Allergies ranitidine [From ZANTAC] Allergy (Severe, Verified 02/06/23 10:40) DIFFICULTY BREATHING, ITCHING HPI HPI Comments History of Present Illness Details Christian is a pleasant male. He is a patient of Dr. Cassidy. He seen for the following urologic conditions - erectile dysfunction with insulin-dependent diabetic - BPH Telemedicine Evaluation 15 min Consultation [employer] Video attempted Persian translation provided by qualified medical surgery nurse Follow-up for lower urinary tract symptoms and ED Has been on daily 5 mg tadalafil 10 mg on demand Erectile dysfunction - Diabetes insulin dependent Good response to 5 mg daily with 10 mg on demand Lower urinary tract symptoms Has been on Flomax with adequate response Still feeling he has hesitancy with urination Had seen blood in his urine needs ultrasound Family history prostate cancer PSA 11/05 0.3 May review at periodic intervals PFSH Medical History Morbid obesity Gross hematuria Lipoma of neck On beta alma at home History of tachycardia Subcutaneous mass of neck Obesity Hx of gastritis History of anxiety History of depression COVID-19 Colitis Gallstones Asthma HTN (hypertension) Fatty liver Dysuria Arthritis Diabetes GERD (gastroesophageal reflux disease) OLIVER on CPAP Chronic back pain Cirrhosis Surgical History Hx of elbow surgery S/P cubital tunnel release History of esophagogastroduodenoscopy (EGD) History of left knee surgery Family History Father No problems noted. Mother HTN (hypertension) Sister Type II diabetes mellitus Social History Are you a primary care mgr to a significant other at home: No Do you presently have visiting nurse or other home services: No Alcohol intake: current Alcohol intake frequency: holidays/special occasions only Alcohol type: beer Patient Tobacco Use Status: Current someday Tobacco user Tobacco use type: Cigarette Substance Use Type: Marijuana service: No Current occupational status: unemployed and disabled Review of Systems Const All systems reviewed & are unremarkable except as noted in HPI and below Reports no additional complaints Resp Reports no additional complaints GI Reports no additional complaints Reports as per HPI Musc Reports no additional complaints Physical Exam Telemedicine evaluation Appropriate responses Regular breathing rate and rhythm HEENT Head: Yes normal to inspection Ears: hearing grossly normal bilaterally Eyes General: appearance normal, both eyes and all related structures Neck Neck: Yes normal visual inspection Chest Chest palpation & inspection: normal inspection of the chest Resp Effort & Inspection: normal respiratory effort and able to speak in complete sentences Assessment & Plan Assessment & Plan (1) Erectile dysfunction associated with type 2 diabetes mellitus: Code(s): E11.69 - Type 2 diabetes mellitus with other specified complication; N52.1 - Erectile dysfunction due to diseases classified elsewhere (2) BPH w urinary obs/LUTS: Code(s): N40.1 - Benign prostatic hyperplasia with lower urinary tract symptoms; N13.8 - Other obstructive and reflux uropathy Plan Six month follow-up PSA Orders: Orders Prostate Specific Antigen 6 Months E11.69 - Type 2 diabetes mellitus with other specified complication, N52.1 - Erectile dysfunction due to diseases classified elsewhere Medications: New tadalafil On demand medication take 60 minutes before intended activity 20 mg PO ONCE PRN 30 tabs 0RF sexual activity 30 days E11.69 - Type 2 diabetes mellitus with other specified complication, N52.1 - Erectile dysfunction due to diseases classified elsewhere Changed From tadalafil 5 mg PO DAILY 90 days 90 tabs 1RF sexual activity E11.69 - Type 2 diabetes mellitus with other specified complication, N52.1 - Erectile dysfunction due to diseases classified elsewhere To tadalafil 10 mg PO DAILY 90 tabs 1RF sexual activity 90 days E11.69 - Type 2 diabetes mellitus with other specified complication, N52.1 - Erectile dysfunction due to diseases classified elsewhere Refilled tamsulosin 0.4 mg PO DAILY 90 caps 1RF 90 days Patient Instructions: Imaging studies, laboratory and physical exam results were discussed and reviewed in detail. No major barriers to patient understanding were identified. An opportunity to ask questions regarding the treatment plan was provided. All questions were answered. The patient expressed understanding and agreement with the above treatment plan. The patient is aware they should contact our office by phone for worsening of their current condition or the appearance of new urologic symptoms. Compliance is encouraged with any medications and followup testing that is ordered. It is a privilege to participate in the urologic care of your patient. If you have any questions or concerns regarding treatment for the above conditions, or other urologic issues, please do not hesitate to contact me. The office telephone contact is [phone]. This note is constructed using voice recognition software. While every effort has been made to ensure accuracy delivery table feeder errors may have been included. Yours sincerely, Dr Dao Keith MD, [facility] - Urology Providers of Expert, Compassionate Care for the Genitourinary System Telehealth Telehealth Location of provider rendering services: practice address Location of patient: address on file Patient Identification confirmed using: Name, : Yes Telehealth method: voice only Patient verbally consented to treatment: Yes Patient verbally consented to billing insurance company: Yes Patient informed of any privacy concerns related to visit: Yes Coding Level of Care Code Tele Est Pt Level 4 (13535) Diagnoses Erectile dysfunction associated with type 2 diabetes mellitus E11.69; N52.1 BPH w urinary obs/LUTS N40.1; N13.8
== END 2023-02-06 11:43 | disposition home or self-care (01) ==
LOC: HO.HUSH 10:29
PROVIDERS: PCP Family Medicine; Visit Provider Urology
DX: E11.69 Type 2 diabetes mellitus with other specified complication (principal); N52.1 Erectile dysfunction due to diseases classified elsewhere; N40.1 Benign prostatic hyperplasia with lower urinary tract symptoms; N13.8 Other obstructive and reflux uropathy
CPT/HCPCS: 99214

== ENCOUNTER → 2023-02-06 10:29 | Outpatient (BNVA) | payer MEDICAID, SELFPAY | PROVIDERS: PCP Family Medicine; Visit Provider Urology ==

== ENCOUNTER 2023-02-20 12:37 | Outpatient (REF) | payer MEDICAID, SELFPAY | END 2023-02-20 12:38 | disposition home or self-care (01) | LOC: HO.HHCL 12:37 | PROVIDERS: Visit Provider Family Medicine | DX: E11.65 Type 2 diabetes mellitus with hyperglycemia (principal); Z79.4 Long term (current) use of insulin | CPT/HCPCS: 82043; 82570 ==

== ENCOUNTER 2023-02-26 08:50 | Outpatient (REF) | payer MEDICAID, SELFPAY ==
[2023-02-26 12:12] LABS: Cholesterol 158 mg/dL (<200); HDL Cholesterol 56 mg/dL (>40); LDL Cholesterol Calculated 88 mg/dL (<100); Triglycerides 71 mg/dL (<150)
[2023-02-26 12:32] LABS: Reflex LDLD? No
== END 2023-02-26 08:51 | disposition home or self-care (01) ==
LOC: HO.HHCL 08:50
PROVIDERS: Visit Provider Family Medicine
DX: E11.65 Type 2 diabetes mellitus with hyperglycemia (principal); Z79.4 Long term (current) use of insulin
CPT/HCPCS: 36415; 80061

== ENCOUNTER 2023-03-05 12:45 | Emergency (ER) | payer MEDICAID, SELFPAY ==
--- NOTE | ~2023-03-05 | XR_ITS ---
EXAMINATION: XR CHEST CLINICAL INFORMATION: Shortness of breath COMPARISON: 01/28/2023 TECHNIQUE: 2 views of the chest were obtained. FINDINGS: No significant abnormality is noted involving the heart, lungs, mediastinum, bony thorax or soft tissues. Mild degenerative changes are present in the spine with some mild anterior wedging of the T10-T11 vertebral bodies, unchanged. XR/XR chest 2V IMPRESSION: No acute intrathoracic disease.
--- NOTE | 2023-03-05 12:47 | ED_ITS ---
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 He reports symptoms started 2 days ago He has been using his nebulizer machine with minimal relief of his symptoms Reports subjective fevers but never took his temperature He denies any sick contacts Denies any leg swelling Denies any history of coronary artery disease No other complaints or concerns at this time Related Data Home Medications Medication Instructions Recorded Confirmed dexlansoprazole 60 mg 60 mg PO DAILY 11/15/19 03/17/22 capsule,biphase delayed release (Dexilant) lancets 33 gauge (TRUEplus Lancets) #100 ea 11/15/19 03/17/22 pen needle, diabetic 32 gauge x #50 ea 11/15/19 03/17/22/32 (Unifine Pentips) blood sugar diagnostic (FreeStyle #10 ea 05/03/21 03/17/22 Lite Strips) insulin glargine U-300 conc 300 20 unit subcut DAILY 05/03/21 03/17/22 unit/mL (1.5 mL) subcutaneous pen (Toujeo SoloStar U-300 Insulin) albuterol sulfate 90 mcg/actuation 2 puff inhalation Q4-6H PRN dyspnea 08/09/21 03/17/22 aerosol inhaler (ProAir HFA) cetirizine 10 mg tablet 10 mg PO BEDTIME 08/09/21 03/17/22 fluticasone propionate 110 1 puff PO BID 08/09/21 03/17/22 mcg/actuation HFA aerosol inhaler (Flovent HFA) fluticasone propionate 50 1 spray intranasal DAILY 08/09/21 03/17/22 mcg/actuation nasal spray,suspension glipizide 5 mg tablet 5 mg PO BID 08/09/21 03/17/22 insulin aspart U-100 100 unit/mL 10 unit subcut DIRECTED 08/09/21 03/17/22 (3 mL) subcutaneous pen lidocaine 5 % topical patch 0 patch topical 08/09/21 03/17/22 (Lidoderm) metoprolol succinate 50 mg 50 mg PO QAM 08/09/21 03/17/22 tablet,extended release 24 hr montelukast 10 mg tablet 10 mg PO BEDTIME PRN 03/17/22 03/17/22 chlorthalidone 25 mg tablet 12.5 mg PO QAM 11/17/22 Previous Rx's Medication Instructions Recorded acetaminophen 500 mg tablet 500 mg PO Q6H PRN pain or fever 12/24/19 (Tylenol Extra Strength) #20 tabs cholecalciferol (vitamin D3) 25 25 mcg PO DAILY #90 caps 11/27/22 mcg (1,000 unit) capsule vitamin A palmitate 3,000 mcg 3,000 mcg PO DAILY #90 caps 01/14/23 (10,000 unit) capsule zinc sulfate 25 mg zinc (110 mg) 25 mg PO DAILY #90 tabs 01/14/23 tablet (Orazinc) benzonatate 100 mg capsule 100 mg PO BID PRN cough 7 days #14 01/28/23 caps prednisone 20 mg tablet 20 mg PO DAILY 7 days #7 tabs 01/28/23 tadalafil 10 mg tablet 10 mg PO DAILY sexual activity 90 02/06/23 days #90 tabs tadalafil 20 mg tablet 20 mg PO ONCE PRN sexual activity 02/06/23 30 days #30 tabs tamsulosin 0.4 mg capsule 0.4 mg PO DAILY 90 days #90 caps 02/06/23 albuterol sulfate 2.5 mg/3 mL 2.5 mg (3 mL) inhalation Q4-6H PRN 03/05/23 (0.083 %) solution for nebulization shortness of breath or wheezing #75 mL azithromycin 250 mg tablet See Rx Instructions PO .COMPLEX #6 03/05/23 tabs benzonatate 200 mg capsule 200 mg PO TID PRN cough #20 caps 03/05/23 prednisone 20 mg tablet 40 mg (2 x 20 mg) PO DAILY #10 tabs 03/05/23 Allergies Allergy/AdvReac Type Severity Reaction Status Date / Time ranitidine [From ZANTAC] Allergy Severe DIFFICULTY Verified 02/06/23 10:40 BREATHING, ITCHING Review of Systems 2 Constitutional: Constitutional: Reports body ache(s), Reports chills, Reports fever(s), Reports headache(s), Reports malaise and Reports weakness ENT: Reports headache(s) and Reports sore throat Cardiovascular: Cardiovascular: Reports chest pain and Reports dyspnea Respiratory: Respiratory: Reports cough and Reports dyspnea Gastrointestinal: Gastrointestinal: Denies abdominal pain, Denies nausea and Denies vomiting Musculoskeletal: Musculoskeletal: Denies back pain Integumentary/Breasts: Skin/Breast: Denies rash Neurologic: Reports headache(s) and Reports weakness PMFSH Past Medical History Onset Date is defined in the Problem List Problems that require an onset date and time if occurred within 24 hrs of arrival to the ED Aortic Dissection and Rupture; Neurologic impairment; Cardiopulmonary Arrest; Endotracheal Intubation; Insertion or Replacement of Mechanical Circulatory Assist Device Medical History Morbid obesity Gross hematuria Lipoma of neck On beta alma at home History of tachycardia Subcutaneous mass of neck Obesity Hx of gastritis History of anxiety History of depression COVID-19 Colitis Gallstones Asthma HTN (hypertension) Fatty liver Dysuria Arthritis Diabetes GERD (gastroesophageal reflux disease) OLIVER on CPAP Chronic back pain Cirrhosis Surgical History Hx of elbow surgery S/P cubital tunnel release History of esophagogastroduodenoscopy (EGD) History of left knee surgery Family History Family History Father No problems noted. Mother HTN (hypertension) Sister Type II diabetes mellitus Social History Social History Are you a primary acute care nursing assistant to a significant other at home: No Do you presently have visiting nurse or other home services: No Alcohol intake: current Alcohol intake frequency: holidays/special occasions only Alcohol type: beer Patient Tobacco Use Status: Current someday Tobacco user Tobacco use type: Cigarette Substance Use Type: Marijuana Advance Directives: No service: No Current occupational status: unemployed and disabled Physical Exam ED Vital Signs: Vital Signs - 24 hr 03/05/23 12:48 03/05/23 15:19 03/05/23 17:30 Temperature 98 F 98.5 F Pulse Rate 95 88 86 Respiratory Rate 19 17 20 Blood Pressure 133/82 145/70 H 147/73 H Pulse Oximetry 98 98 98 Oxygen Delivery Method Room Air Room Air Nasal Cannula BMI result Body Mass Index 42.0 Const General: healthy appearing, comfortable, no acute distress, alert and awake Nutritional Appearance: well nourished Orientation/consciousness: patient oriented x3 HENMT Head: Yes normocephalic and Yes atraumatic Eyes Eyelids: Yes eyelids normal Conjunctivae: conjunctivae normal Sclerae: sclerae normal Corneas: corneas normal Pupils: Equal, round and reactive pupils present EOM: EOMs intact bilaterally Neck Neck: Yes full ROM Resp Effort & Inspection: normal respiratory effort, able to speak in complete sentences and not labored Auscultation: not clear to auscultation bilaterally and wheezes (Faint expiratory wheezing) Skin General skin exam: elasticity normal Neuro General: patient oriented x3 Cranial nerves: Yes Equal, round and reactive pupils present and Yes Bilaterally intact EOM present Cognition (Neuro): normal cognition Extrem Other: Moving all extremities well without any obvious deformities Course Course Course Narrative: RME- 48-year-old male presents for evaluation of cough, congestion, loss of sense of smell as started earlier today. Plan for labs, viral swabs and an EKG. Most likely viral cause of his symptoms. Medical Decision Making Medical Decision Making [facility] Narrative: 48-year-old male history of asthma presents for evaluation of cough or shortness of breath. Given the chest pain he would extensive workup that included labs, chest x-ray, EKG. His EKG is nonischemic, normal sinus rhythm rate 91 beats per minute. Chest x-ray is clear viral swabs unremarkable, labs without any significant abnormalities. Patient ruled out for ACS, has no evidence of pneumonia. Viral swab negative, we will treat with azithromycin and prednisone for asthma exacerbation related to upper respiratory infection Differential Diagnosis Differential Diagnoses: The differential diagnosis associated with the presentation includes Asthma exacerbation Upper respiratory infection Pneumonia COVID-19 Chest pain ACS Admission/Observation Consideration of admission/observation: Escalation of care including admission/observation considered Patient ruled out for sepsis as well as ACS Lab Data [facility] Lab Attestation statement: I reviewed the patient's lab results. No leukocytosis. The patient has a mild anemia with a hematocrit of 37.6 and hemoglobin 13.4. This is consistent with his recent baseline. No significant electrolyte abnormalities. Troponin unremarkable 03/05/23 13:05 03/05/23 13:05 Labs: Lab Results 03/05/23 Range/Units 13:05 WBC 5.1 (4.8-10.8) X10*3/uL RBC 3.73 L (4.60-5.80) X10*6/uL Hgb 13.4 L (14.0-18.0) g/dl Hct 37.6 L (42.0-52.0) % MCV 100.8 H (80.0-98.0) fL MCH 35.9 H (27.0-33.0) pg MCHC 35.6 (31.0-36.0) g/dl RDW 15.1 (11.0-16.0) % Plt Count 65 L D (160-400) X10*3/uL MPV 10.5 (9.4-12.4) fL Immature Gran % (Auto) 0.2 (0.0-0.4) % Neut % (Auto) 61.5 (45-73) % Lymph % (Auto) 23.4 (20-40) % Greenlee % (Auto) 11.5 H (2-11) % Eos % (Auto) 2.8 (0-4) % Baso % (Auto) 0.6 (0-2) % Lymph # (Auto) 1.2 (1.2-4.9) X10*3/uL Greenlee # (Auto) 0.6 (0.1-1.2) X10*3/uL Eos # (Auto) 0.1 (0.0-0.4) X10*3/uL Baso # (Auto) 0.0 (0.0-0.2) X10*3/uL Abs Immat Gran (auto) 0.01 (0.00-0.03) X10*3/uL Absolute Neuts (auto) 3.1 (2.0-8.3) x10*3/uL Absolute Nucleated RBC 0.000 (0.0-0.012) X10*3/uL Nucleated RBC % (auto) 0.0 (0.0-0.2) /100WBC Smear Tech's Comments VERIFIED Sodium 137 (135-145) mmol/L Potassium 3.6 (3.3-5.1) mmol/L Chloride 107 (96-108) mmol/L Carbon Dioxide 26 (22-29) mmol/L Anion Gap 8 L (12-20) BUN 6 L (9-16) mg/dL Creatinine 0.60 (0.5-1.4) mg/dL Estim Creat Clear Calc 196.1 Estimated GFR > 60 Random Glucose 122 H (60-115) mg/dL Calcium 8.2 L (8.4-10.2) mg/dL Troponin I High Sens < 2.7 (<3.5-35.0) ng/L COVID-19 (SEDA) Negative (Negative) COVID-19 Clin Com See Note Influenza Type A (TALON) Negative (Negative) Influenza Type B (TALON) Negative (Negative) Influenza A & B Note See Note Discharge Plan Discharge Clinical Impression: Acute upper respiratory infection Patient Disposition: Home, Self-Care Instructions: Upper Respiratory Infection (ED) Additional Instructions: Your workup in the ER today, this includes your blood work, EKG, chest x-ray and viral swab Taken azithromycin and prednisone as directed Use Tessalon Perles as needed for coughing Hydrate well Follow-up with your primary doctor Prescriptions: New azithromycin 250 mg tablet See Rx Instructions .ROUTE .COMPLEX Qty: 6 0RF Rx Instructions: For 250 mg dose pack: take 500 mg today (day 1), then 250 mg for 4 days (days 2-5) prednisone 20 mg tablet 40 mg PO DAILY Qty: 10 0RF benzonatate 200 mg capsule 200 mg PO TID PRN (Reason: cough) Qty: 20 0RF albuterol sulfate 2.5 mg /3 mL (0.083 %) solution for nebulization 2.5 mg inhalation Q4-6H PRN (Reason: shortness of breath or wheezing) Qty: 75 0RF No Action cholecalciferol (vitamin D3) 25 mcg (1,000 unit) capsule 25 mcg PO DAILY Qty: 90 2RF vitamin A palmitate 3,000 mcg (10,000 unit) capsule 3,000 mcg PO DAILY Qty: 90 2RF Orazinc 25 mg zinc (110 mg) tablet 25 mg PO DAILY Qty: 90 2RF acetaminophen [Tylenol Extra Strength] 500 mg tablet 500 mg PO Q6H PRN (Reason: pain or fever) Qty: 20 0RF montelukast 10 mg tablet 10 mg PO BEDTIME PRN prednisone 20 mg tablet 20 mg PO DAILY 7 Days Qty: 7 0RF benzonatate 100 mg capsule 100 mg PO BID PRN (Reason: cough) 7 Days Qty: 14 0RF Dexilant 60 mg capsule,biphase delayed releas 60 mg PO DAILY (DME) pen needle, diabetic [Unifine Pentips] 32 gauge x 5/32 needle See Rx Instructions .ROUTE .MEDSUPPLY Qty: 50 Rx Instructions: As directed (DME) lancets [TRUEplus Lancets] 33 gauge misc See Rx Instructions .ROUTE .MEDSUPPLY Qty: 100 Rx Instructions: As directed Toujeo SoloStar U-300 Insulin 300 unit/mL (1.5 mL) insulin pen 20 unit subcut DAILY (DME) FreeStyle Lite Strips Strip See Rx Instructions Not Applicable QID Qty: 10 Rx Instructions: As directed tamsulosin 0.4 mg capsule 0.4 mg PO DAILY 90 Days Qty: 90 1RF tadalafil 10 mg tablet 10 mg PO DAILY 90 Days Qty: 90 1RF tadalafil 20 mg tablet 20 mg PO ONCE PRN (Reason: sexual activity) 30 Days Qty: 30 0RF Rx Instructions: On demand medication take 60 minutes before intended activity lidocaine [Lidoderm] 5 % adhesive patch,medicated 0 patch topical fluticasone propionate [Flovent HFA] 110 mcg/actuation HFA aerosol inhaler 1 puff PO BID fluticasone propionate 50 mcg/actuation spray,suspension 1 spray intranasal DAILY glipizide 5 mg tablet 5 mg PO BID metoprolol succinate 50 mg tablet extended release 24 hr 50 mg PO QAM insulin aspart U-100 100 unit/mL (3 mL) insulin pen 10 unit subcut DIRECTED albuterol sulfate [ProAir HFA] 90 mcg/actuation HFA aerosol inhaler 2 puff inhalation Q4-6H PRN (Reason: dyspnea) cetirizine 10 mg tablet 10 mg PO BEDTIME chlorthalidone 25 mg tablet 12.5 mg PO QAM
[2023-03-05 12:48] VITALS: BP 133/82; PULSE 95; RESP 19; TEMP 36.6; O2SAT 98; BMI 42.0
--- NOTE | 2023-03-05 12:48 | ECG_ITS ---
Test Reason : chest pain Blood Pressure : / mmHG Vent. Rate : 091 BPM Atrial Rate : 091 BPM P-R Int : 152 ms QRS Dur : 082 ms QT Int : 390 ms P-R-T Axes : 034 005 010 degrees QTc Int : 479 ms Normal sinus rhythm Normal ECG When compared with ECG of 25-AUG-2022 16:53, No significant change was found Referred By: Maikol Hassan Electronically Signed By:TEA PERSAUD
[2023-03-05 13:16] LABS: Basophils Percent Auto 0.6 % (0-2); Eosinophils Absolute Auto 0.1 X10*3/uL (0.0-0.4); Eosinophils Percent Auto 2.8 % (0-4); Hematocrit 37.6 % (42.0-52.0); Hemoglobin 13.4 g/dl (14.0-18.0); Imm Gran Abs Auto 0.01 X10*3/uL (0.00-0.03); Imm Gran Pct Auto 0.2 % (0.0-0.4); Lymphocytes Absolute Auto 1.2 X10*3/uL (1.2-4.9); Lymphocytes Percent Auto 23.4 % (20-40); MANUAL DIFF FLAG SCAN; Mean Corpuscular HGB Conc 35.6 g/dl (31.0-36.0); Mean Corpuscular Hemoglobin 35.9 pg (27.0-33.0); Mean Corpuscular Volume 100.8 fL (80.0-98.0); Mean Platelet Volume 10.5 fL (9.4-12.4); Monocytes Absolute Auto 0.6 X10*3/uL (0.1-1.2); Monocytes Percent Auto 11.5 % (2-11); Neutrophils Absolute Auto 3.1 x10*3/uL (2.0-8.3); Neutrophils Percent Auto 61.5 % (45-73); PLT CLUMP 1; Red Blood Count 3.73 X10*6/uL (4.60-5.80); Red Cell Distribution Width 15.1 % (11.0-16.0); SCAN SMEAR FLAG 1
[2023-03-05 13:27] LABS: Anion Gap 8 (12-20); Blood Urea Nitrogen 6 mg/dL (9-16); Calcium 8.2 mg/dL (8.4-10.2); Carbon Dioxide 26 mmol/L (22-29); Chloride 107 mmol/L (96-108); Creatinine Clr Calc Pharmacy 196.1; Estimated Glomerular Filt Rate > 60; Glucose Random 122 mg/dL (60-115); Potassium 3.6 mmol/L (3.3-5.1); Sodium 137 mmol/L (135-145)
[2023-03-05 13:35] LABS: COVID-19 Test Negative (Negative); IDNOW Serial# 08D9AD1C; IDNOW Serial# 152EDE1D; Influenza A Negative (Negative); Influenza B2 Negative (Negative)
[2023-03-05 13:37] LABS: Troponin-I High Sensitivity < 2.7 ng/L (<3.5-35.0)
[2023-03-05 13:38] LABS: Platelet Count 65 X10*3/uL (160-400); White Blood Count 5.1 X10*3/uL (4.8-10.8)
[2023-03-05 13:39] LABS: SLIDE REVIEW VERIFIED
[2023-03-05 15:19] VITALS: BP 145/70; PULSE 88; RESP 17; TEMP 36.9; O2SAT 98
[2023-03-05 17:30] VITALS: BP 147/73; PULSE 86; RESP 20; O2SAT 98
== END 2023-03-05 17:51 | disposition home or self-care (01) ==
PROVIDERS: Physician Assistant; Emergency Provider Internal Medicine; PCP Family Medicine
DX: J06.9 Acute upper respiratory infection, unspecified (principal); R06.02 Shortness of breath; R07.89 Other chest pain; R50.9 Fever, unspecified; Z11.52 Encounter for screening for COVID-19; Z20.828 Contact with and (suspected) exposure to other viral communicable diseases; Z79.899 Other long term (current) drug therapy
CPT/HCPCS: 36415; 71046; 80048; 84484; 85025; 87502; 87635; 93005; 99283

== ENCOUNTER → 2023-03-05 12:48 | Outpatient (BNV) | payer MEDICAID, SELFPAY | PROVIDERS: PCP Family Medicine; Visit Provider Internal Medicine | DX: R07.9 Chest pain, unspecified (principal) | CPT/HCPCS: 93010 ==

== ENCOUNTER 2023-03-23 11:27 | Outpatient (AMB) | payer MEDICAID, SELFPAY ==
--- NOTE | 2023-03-23 11:32 | A.OFFVIS_ITS ---
Intake Vital Signs 03/23/23 11:34 Height 5 ft 8 in Weight 272 lb BMI 41.4 BP 136/80 Blood Pressure Location Lt brachial Pulse 86 Intake Visit Reasons: 4 month follow up Intake Note: Patient follow up Patient denies any GI issues. Collection Administrator Required: Yes Collection Administrator Name: [facility] Interpeter Accompanied by: Self / Same As Patient Allergies ranitidine [From ZANTAC] Allergy (Severe, Verified 03/23/23 11:32) DIFFICULTY BREATHING, ITCHING HPI 4 month follow up HPI Details 48 yr old m being seen for f/u RECAP pt of liz, hx of cirrhosis MRI with hemangiomas. nodular appearing liver, fatty liver no evidence of HCC he was given trental and stopped due to nausea, dizziness LABS from past-ne g celiac, neg viral hep screens, mild raised SMA, neg SLA, raised IGG normal plts. u/s 10/2018-- F3-4 on elastography but smapling error, no liver lesions, steatosis, coarse liver EGD with hyperplastic polyp removed, small varices, gastritis u/s 10/2019-- steatosis, possible cirrhosis LABS: 11/2019-- INR- 1.1, HGB nml, plt 178, AST/ALT mildly elevated US 08/2022-- cirrhosis, gallstones LABS: 02/2023--HGB: 13, pls 65, Na: 137, Creat- 0.6, INR (12/08)--1.6 INTERIM feels well no abdominal pain appetite is good, weight stable DM control variable., gained more weight no blood in stools he has US liver tomorrow started ozempic and had been helping with weight loss EXAM: GENERAL: The patient is well developed and nontoxic,obese VITAL SIGNS:see workflow HEENT: Nonicteric sclerae, PERRLA, EOMI. Oropharynx clear. Moist mucous membranes. Conjunctivae appear well perfused. No thyroid mass. CHEST: Chest wall is nontender. HEART: Regular rate and rhythm without murmurs. LUNGS: Clear to auscultation bilaterally. ABDOMEN: Soft, positive bowel sounds, nontender, no organomegaly.no flank tenderness SKIN: No rash, no excessive bruising, petechiae, or purpura. NEUROLOGIC: Cranial nerves II-XII intact without motor/sensory deficit. Assessment & Plan (1) Cirrhosis: MAFLD possible v early ci rrhosis or F3 damage, SMA was pos low level titer, other serologies neg--still drinking alcohol but less often (2) Hyperplastic polyp of stomach: with chronic borderline anemia (3) Chronic epigastric pain: possibly fr om gallstones, not a big issue right now PLAN: 1/ advised on diet and weight loss, heal thy eating, avoid alcohol as before with total abstinence, can take coffee which he is doing 2/ US liver for HCC and elastography beny orrow, q 6 months 3/ rept labs next visit 4/ eGD and screening colonoscopy --supr ep--hold ozempic 1 week before and insulin long acting half dose night before PFSH Medical History Morbid obesity Gross hematuria Lipoma of neck On beta alma at home History of tachycardia Subcutaneous mass of neck Obesity Hx of gastritis History of anxiety History of depression COVID-19 Colitis Gallstones Asthma HTN (hypertension) Fatty liver Dysuria Arthritis Diabetes GERD (gastroesophageal reflux disease) OLIVER on CPAP Chronic back pain Cirrhosis Surgical History Hx of elbow surgery S/P cubital tunnel release History of esophagogastroduodenoscopy (EGD) History of left knee surgery Family History Father No problems noted. Mother HTN (hypertension) Sister Type II diabetes mellitus Social History Are you a primary rn patient care to a significant other at home: No Do you presently have visiting nurse or other home services: No Alcohol intake: current Alcohol intake frequency: holidays/special occasions only Alcohol type: beer Patient Tobacco Use Status: Current someday Tobacco user Tobacco use type: Cigarette Substance Use Type: Marijuana service: No Current occupational status: unemployed and disabled Assessment & Plan Assessment & Plan (1) Fatty liver: Code(s): K76.0 - Fatty (change of) liver, not elsewhere classified Plan: PLAN: 1/ advised on diet and weight loss, healthy eating, avoid alcohol as before with total abstinence, can take coffee which he is doing 2/ US liver for HCC and elastography tomorrow, q 6 months 3/ rept labs next visit 4/ eGD and colonoscopy--hold ozempic 1 week before and insulin long acting half dose night before (2) Cirrhosis: Code(s): K74.60 - Unspecified cirrhosis of liver Qualifiers: Hepatic cirrhosis type: other cirrhosis Qualified Code(s): K74.69 - Other cirrhosis of liver Plan: PLAN: 1/ advised on diet and weight loss, healthy eating, avoid alcohol as before with total abstinence, can take coffee which he is doing 2/ US liver for HCC and elastography tomorrow, q 6 months 3/ rept labs next visit 4/ eGD and colonoscopy--hold ozempic 1 week before and insulin long acting half dose night before (3) Screening for colon cancer: Code(s): Z12.11 - Encounter for screening for malignant neoplasm of colon Plan: PLAN: 1/ advised on diet and weight loss, healthy eating, avoid alcohol as before with total abstinence, can take coffee which he is doing 2/ US liver for HCC and elastography tomorrow, q 6 months 3/ rept labs next visit 4/ eGD and colonoscopy--hold ozempic 1 week before and insulin long acting half dose night before Medications: New sodium,potassium,mag sulfates 17.5-3.13-1.6 gram (Suprep Bowel Prep Kit) DILUTE; drink 1/2 at 6-8 pm and half at 11 PM- 1AM 354 mL 0RF Coding Level of Care Code Est Pt Level 4 (96415) Diagnoses Fatty liver K76.0 Other cirrhosis of liver K74.69 Hepatic cirrhosis type: other cirrhosis Screening for colon cancer Z12.11
[2023-03-23 11:34] VITALS: BP 136/80; PULSE 86; BMI 41.4
== END 2023-03-23 12:29 | disposition home or self-care (01) ==
PROVIDERS: PCP Family Medicine; Referring Provider Family Medicine; Visit Provider Internal Medicine Gastroenterology
DX: K76.0 Fatty (change of) liver, not elsewhere classified (principal); K74.69 Other cirrhosis of liver; Z12.11 Encounter for screening for malignant neoplasm of colon
CPT/HCPCS: 99214

== ENCOUNTER → 2023-03-23 11:27 | Outpatient (BNVA) | payer MEDICAID, SELFPAY | PROVIDERS: PCP Family Medicine; Visit Provider Internal Medicine Gastroenterology | DX: K76.0 Fatty (change of) liver, not elsewhere classified (principal); K74.69 Other cirrhosis of liver | CPT/HCPCS: 99212 ==

== ENCOUNTER 2023-04-01 08:57 | Outpatient (REF) | payer MEDICAID, SELFPAY ==
--- NOTE | ~2023-04-01 | US_ITS ---
EXAMINATION: US ABDOMEN LIMITED WITH LIVER ELASTOGRAPHY CLINICAL INFORMATION: Nonalcoholic steatohepatitis. COMPARISON: Abdominal ultrasound dated 08/25/2022. TECHNIQUE: Real-time imaging of the abdominal viscera. Noninvasive ultrasound liver fibrosis assessment is performed using Mila ElastPQ point quantification shear wave elastography (2D-SWE) with a C5-2 MHz transducer. Multiple elastography samples are obtained. FINDINGS: PANCREAS: Largely obscured by overlapping bowel gas. LIVER: The liver demonstrates normal size, a mildly lobular contour and normal echogenicity. No focal lesion or intrahepatic biliary duct dilatation. The right lobe measures 13.2 cm in length. The left lobe measures 12.7 cm in length. Portal flow is towards the liver (hepatopetal). Shear wave liver elastography median stiffness is 1.48 m/s (reference: normal median stiffness is 1.3 m/s or less). IQR/median stiffness to assess sampling precision is 0.30 (reference: good quality data set is IQR/median stiffness of 0.15 or less). GALLBLADDER: There are multiple gallstones, without sludge, polyps, wall thickening or pericholecystic fluid. COMMON BILE DUCT: Normal in caliber measuring 0.4 cm in diameter. RIGHT KIDNEY: Normal. No hydronephrosis. No renal calculi or focal parenchymal lesions. The kidney measures 12.0 cm in maximum dimension. FREE FLUID: None. OTHER: There is a recanalized umbilical vein. US/US abdomen mondragon w elastography IMPRESSION: 1. There is a mildly lobulated hepatic contour and recanalized umbilical vein, which can be associated with cirrhosis. No focal hepatic mass or biliary ductal dilatation is seen. 2. Liver elastography: Although measurements appear to rule out compensated advanced chronic liver disease, there is statistical variability of the sampling which decreases accuracy. 3. There is again cholelithiasis. 4. Technically limited ultrasound examination, in particular of the pancreas. REFERENCE: Society of Radiologists in Ultrasound Liver Stiffness Thresholds (2020): LIVER STIFFNESS THRESHOLDS: *Liver Stiffness equal or less than 1.3 m/s: High probability of being normal. *Liver Stiffness less than 1.7 m/s: In the absence of other known clinical signs, rules out compensated advanced chronic liver disease. *Liver Stiffness 1.7-2.1 m/s: Suggestive of compensated advanced chronic liver disease but need further test for confirmation. *Liver Stiffness over 2.1 m/s: Rules in compensated advanced chronic liver disease. *Liver Stiffness over 2.4 m/s: Suggestive of clinically significant portal hypertension. QUALITY OF DATA SET: *IQR/Median value equal or less than 0.15 implies a quality data set. *IQR/Median value over 0.15 implies a poor quality data set. SIGNIFICANT CHANGE FROM PRIOR EXAM: Significant change if liver stiffness measurement is 10% or greater from prior exam. OTHER CONSIDERATIONS: The stage of liver fibrosis may be overestimated in the setting of acute hepatitis, liver inflammation, elevated liver function tests, hepatic vascular congestion, obstructive cholestasis, non-fasting state, and infiltrative diseases such as amyloidosis and lymphoma. In some patients with NAFLD, the liver stiffness thresholds for compensated advanced chronic liver disease may be lower. In causes other than viral hepatitis and NAFLD, liver stiffness thresholds are not well established.
== END 2023-04-01 08:58 | disposition home or self-care (01) ==
LOC: HO.US 08:57
PROVIDERS: PCP Family Medicine; Visit Provider Internal Medicine Gastroenterology
DX: K75.81 Nonalcoholic steatohepatitis (NASH) (principal); K74.60 Unspecified cirrhosis of liver
CPT/HCPCS: 76705; 76981

== ENCOUNTER 2023-04-08 12:43 | Outpatient (AMB) | payer MEDICAID, SELFPAY ==
--- NOTE | 2023-04-08 13:07 | A.OFFVIS_ITS ---
Intake VS Expanded 04/08/23 13:08 04/21/23 09:05 Height 5 ft 8 in 5 ft 8 in Weight 275 lb 2.19 oz 275 lb BMI 41.8 41.8 Intake Visit Reasons: DM2, GERD, FATTY LIVER, OBESITY/LVM Allergies ranitidine [From ZANTAC] Allergy (Severe, Verified 03/23/23 11:32) DIFFICULTY BREATHING, ITCHING HPI Nutrition Presentation Details Pt presents to [facility] for T2DM, Pt also has morbid obesity, Fatty liver, GERD, hyperplastic polyp of stomach. The Pt was referred by Dr. Anna, mail room clerk. Pt presents with significant other to this appt. Pt reports working on reducing on sugar and better glucose management. Pt did not bring glucometer to this appt. DM meds per Pt: Toujeo 35 units/day Truliticty 1.5 mg/wk Food frequency Eating out 1-2 x/wk fruits - 0-1 fish: 1x/wk beverages with sugars: 0-1/d starches > 25 serving non starchy ve: 3 serving/wk physical activity : daily life activities smokin denies etoh: occ 1-2 DZT-Nymosoc-Mt.Jeor Equation Height 5 ft 8 in Weight 275 lb Resting Metabolic Rate 2099.39 Calculated Activity Level Sedentary Calories Needed to Maintain Weight 2519.27 Diagnosis Nutrition problem #1 excessive energy intake and food nutri know defi As related to (etiology) #1 diagnosis As evidenced by (sign/symptom) #1 high BMI and knowledge deficit of diet Monitoring/Goals Nutrition problem monitoring level of knowledge/skill, glucose, fasting, total CHO intake, weight and oral fluids Nutrition goal/outcome list 3 CHO foods, wt loss 5lbs in 2 months and list 3 high fiber foods Outcome progress verbalized understanding Learning/Education Readiness to learn good Stages of change preparation Educational materials provided Yes (meal planning) Most Recent Diabetes Results: Microalb/Creat Ratio 4.9 ug/mg cr (<30) 02/20/23 Cholesterol 158 mg/dL (<200) 02/26/23 HDL Cholesterol 56 mg/dL (>40) 02/26/23 Triglycerides 71 mg/dL (<150) 02/26/23 Creatinine 0.67 mg/dL (0.5-1.4) 04/16/23 Blood Urea Nitrogen 6 mg/dL (9-16) L 04/16/23 Sodium 136 mmol/L (135-145) 04/16/23 Potassium 3.2 mmol/L (3.3-5.1) L 04/16/23 Chloride 105 mmol/L (96-108) 04/16/23 Carbon Dioxide 25 mmol/L (22-29) 04/16/23 Calcium 7.9 mg/dL (8.4-10.2) L 04/16/23 AST 73 U/L (5-37) H 04/16/23 ALT 40 U/L (0-40) 04/16/23 Total Protein 7.3 g/dL (6.5-8.0) 04/16/23 Albumin 2.8 g/dL (3.5-5.0) L 04/16/23 [facility] Medical History Morbid obesity Gross hematuria Lipoma of neck On beta alma at home History of tachycardia Subcutaneous mass of neck Obesity Hx of gastritis History of anxiety History of depression COVID-19 Colitis Gallstones Asthma HTN (hypertension) Fatty liver Dysuria Arthritis Diabetes GERD (gastroesophageal reflux disease) OLIVER on CPAP Chronic back pain Cirrhosis Surgical History Hx of elbow surgery S/P cubital tunnel release History of esophagogastroduodenoscopy (EGD) History of left knee surgery Family History Father No problems noted. Mother HTN (hypertension) Sister Type II diabetes mellitus Social History Are you a primary critical care physician assistant to a significant other at home: No Do you presently have visiting nurse or other home services: No Alcohol intake: current Alcohol intake frequency: holidays/special occasions only Alcohol type: beer Patient Tobacco Use Status: Current someday Tobacco user Tobacco use type: Cigarette Substance Use Type: Marijuana Advance Directives: No Advance Directives Information Provided: No service: No Current occupational status: unemployed and disabled Assessment & Plan Assessment & Plan (1) Diabetes: Comment: IDDM, fatty liver, obesity, hyperplastic polyps in colon Code(s): E11.9 - Type 2 diabetes mellitus without complications Plan: Wt: 125 Kg ( 03/2023 ) Est kcal needs as per MSJ: 2500 (40% carb, 30% protein/fat) Est fluid needs as per 25-30 ml/d: 3800 Est prot per day as per 1 g/kg bw: 125 Recommend fiber intake : 8-10 g per day and gradually increase to 25-28 g per day for women and 35-38 g for men or as tolerated Recommend sodium intake per day : less than 2000 mg Educated patient on: ( R = reviewed V = verbalizes understanding N/R = needs review N/A = not applicable * Food sources of carbohydrate, adequate serving sizes and its role in various health conditions: R * Differences between complex carbohydrates a simple carbohydrates, role of fiber in diet: R * Lean protein sources of foods: R * Differences between types of fats and role in diet (mono on saturated fat fatty acids, saturated fatty acids, trans fats): R * Food sources of sodium in salt and healthy modifications for heart health in kidney health: NR * Vitamins and minerals: R * Healthy plate method concept: R V * Physical activity: Benefits a precaution: R * Hypoglycemia protocol (rule of 15): N/R * Dietary prevention of Hyperglycemia: R Patient Instructions: Practice mindful eating Reduce total carb at meal to less than 80 g following healthy plate method Engage in 10 minutes of daily physical activity and gradually increase to 30 min daily as tolerated Coding Level of Care Code Nutr Indiv Intake (92808) Diagnoses Diabetes E11.9 Time Spent (min) 30 Comment
[2023-04-08 13:08] VITALS: BMI 41.8
[2023-04-21 09:05] VITALS: BMI 41.8
== END 2023-04-08 14:07 | disposition home or self-care (01) ==
PROVIDERS: PCP Family Medicine; Visit Provider Dietitian, Registered
DX: E11.9 Type 2 diabetes mellitus without complications (principal)

== ENCOUNTER → 2023-04-08 12:43 | Outpatient (BNVA) | payer MEDICAID, SELFPAY | PROVIDERS: PCP Family Medicine; Visit Provider Dietitian, Registered | DX: E11.9 Type 2 diabetes mellitus without complications (principal) | CPT/HCPCS: 97802 ==

== ENCOUNTER 2023-04-16 06:25 | Emergency (ER) | payer MEDICAID, SELFPAY ==
--- NOTE | ~2023-04-16 | CT_ITS ---
EXAMINATION: CT ABDOMEN AND PELVIS WITH CONTRAST CLINICAL INFORMATION: Abdominal pain. Nausea and vomiting. COMPARISON: 08/25/2022 TECHNIQUE: Multidetector volumetric images were obtained from the superior aspect of the liver through the pubic symphysis following administration 85 mL of Omnipaque 350 intravenous contrast. Sagittal and coronal reformatted images were obtained on the technologist's workstation. Oral contrast: No This CT examination was performed using dose optimization techniques as appropriate, variously including the following: *Automated exposure control *Adjustment of mA and/or kV according to patient size (this includes techniques or standardized protocols for targeted exams where dose is matched to indication/reason for exam; i.e. extremities or head) *Use of iterative reconstruction technique DLP: 875 mGy-cm FINDINGS: LUNG BASES: Small right pleural effusion. LIVER, GALLBLADDER, AND BILIARY TREE: Cirrhotic morphology of the liver. The parenchyma is diffusely heterogeneous and detection and evaluation of underlying lesions. No biliary ductal dilatation. Gallstones. PANCREAS: No ductal dilatation. SPLEEN: Enlarged. ADRENAL GLANDS: No adrenal mass. KIDNEYS AND URETERS: The kidneys are symmetric in size and enhancement. Few bilateral hypodensities are too small to characterize. No hydronephrosis or perinephric stranding. BLADDER: Unremarkable. GASTROINTESTINAL TRACT: Unopacified loops of small and large bowel are not obstructed. Appendix is within normal limits. Rectal wall thickening is nonspecific. No perirectal stranding. ABDOMINAL WALL: Small fat-containing umbilical hernia. LYMPH NODES: Subcentimeter mesenteric lymph nodes. Mesenteric edema and congestion. There is small ascites. There is nodular thickening of bilateral peritoneal recesses. VASCULAR: Normal caliber abdominal aorta. Hepatic vasculature is patent. Gastric varices. Recanalized umbilical vein. PELVIC VISCERA: Unremarkable. OSSEOUS STRUCTURES: No destructive bone lesions. CT/CT abdomen pelvis w IV con IMPRESSION: Hepatic cirrhosis. Heterogeneous hepatic parenchyma. MRI abdomen may be considered. Small ascites. Peritoneal thickening and nodularity. Cholelithiasis. Nonspecific rectal wall thickening. No perirectal stranding. Advise clinical correlation.
--- NOTE | ~2023-04-16 | XR_ITS ---
EXAMINATION: XR CHEST CLINICAL INFORMATION: Shortness of breath. Difficulty breathing. COMPARISON: Chest x-ray March 05, 2023 TECHNIQUE: Frontal view of the chest was obtained. FINDINGS: Cardiac silhouette is normal in size. The lungs are well aerated. There is no lobar consolidation. No pleural effusion or pneumothorax. Degenerative changes of the spine. XR/XR chest 1V IMPRESSION: No acute pulmonary pathology.
[2023-04-16 06:27] VITALS: BP 140/85; PULSE 101; RESP 20; TEMP 38; O2SAT 98; BMI 39.8
--- NOTE | 2023-04-16 07:09 | ED.NAVMDI ---
HPI - Nausea/Vomiting/Diarrhea General Chief complaint: Nausea/Vomiting/Diarrhea Stated complaint: N/V -?Dehydrated Time Seen by Provider: 04/16/23 07:04 Source: patient, old records reviewed and bilingual interpreter Mode of arrival: ambulatory Limitations: no limitations History of Present Illness HPI Narrative: 48 yo male with PMH of cirrhosis, DM, HTN, GERD, OLIVER, BPH, chronic back pain here with c/o nausea, vomiting, resolved diarrhea, body aches and chills since Thursday. No travel, food exposures, sick contacts, antibiotic use. He feels very weak and dehydrated. He cannot tolerate PO. He tries gatorade and water and throws it up. He has no abdominal pain. MD elicited complaint: nausea, vomiting and diarrhea Onset (ago): day(s) (Thursday) Description of vomiting: food contents and watery Description of diarrhea: watery Associated nausea: Yes Associated abdominal pain: No Pain consistency: intermittent Severity: mild Quality: cramping Exacerbating factors: eating and movement Relieving factors: none Associated symptoms: myalgias, fever/chills, headaches, loss of appetite, malaise, nausea/vomiting and weakness Related Data Home Medications Medication Instructions Recorded Confirmed dexlansoprazole 60 mg 60 mg PO DAILY 11/15/19 03/17/22 capsule,biphase delayed release (Dexilant) lancets 33 gauge (TRUEplus Lancets) #100 ea 11/15/19 03/17/22 pen needle, diabetic 32 gauge x #50 ea 11/15/19 03/17/22 5/32 (Unifine Pentips) blood sugar diagnostic (FreeStyle #10 ea 05/03/21 03/17/22 Lite Strips) insulin glargine U-300 conc 300 20 unit subcut DAILY 05/03/21 03/17/22 unit/mL (1.5 mL) subcutaneous pen (Toujeo SoloStar U-300 Insulin) albuterol sulfate 90 mcg/actuation 2 puff inhalation Q4-6H PRN dyspnea 08/09/21 03/17/22 aerosol inhaler (ProAir HFA) cetirizine 10 mg tablet 10 mg PO BEDTIME 08/09/21 03/17/22 fluticasone propionate 110 1 puff PO BID 08/09/21 03/17/22 mcg/actuation HFA aerosol inhaler (Flovent HFA) fluticasone propionate 50 1 spray intranasal DAILY 08/09/21 03/17/22 mcg/actuation nasal spray,suspension insulin aspart U-100 100 unit/mL 10 unit subcut DIRECTED 08/09/21 03/17/22 (3 mL) subcutaneous pen lidocaine 5 % topical patch 0 patch topical 08/09/21 03/17/22 (Lidoderm) metoprolol succinate 50 mg 50 mg PO QAM 08/09/21 03/17/22 tablet,extended release 24 hr montelukast 10 mg tablet 10 mg PO BEDTIME PRN 03/17/22 03/17/22 chlorthalidone 25 mg tablet 12.5 mg PO QAM 11/17/22 Previous Rx's Medication Instructions Recorded acetaminophen 500 mg tablet 500 mg PO Q6H PRN pain or fever 12/24/19 (Tylenol Extra Strength) #20 tabs cholecalciferol (vitamin D3) 25 25 mcg PO DAILY #90 caps 11/27/22 mcg (1,000 unit) capsule vitamin A palmitate 3,000 mcg 3,000 mcg PO DAILY #90 caps 01/14/23 (10,000 unit) capsule zinc sulfate 25 mg zinc (110 mg) 25 mg PO DAILY #90 tabs 01/14/23 tablet (Orazinc) benzonatate 100 mg capsule 100 mg PO BID PRN cough 7 days #14 01/28/23 caps prednisone 20 mg tablet 20 mg PO DAILY 7 days #7 tabs 01/28/23 tadalafil 10 mg tablet 10 mg PO DAILY sexual activity 90 02/06/23 days #90 tabs tadalafil 20 mg tablet 20 mg PO ONCE PRN sexual activity 02/06/23 30 days #30 tabs tamsulosin 0.4 mg capsule 0.4 mg PO DAILY 90 days #90 caps 02/06/23 albuterol sulfate 2.5 mg/3 mL 2.5 mg (3 mL) inhalation Q4-6H PRN 03/05/23 (0.083 %) solution for nebulization shortness of breath or wheezing #75 mL azithromycin 250 mg tablet See Rx Instructions PO .COMPLEX #6 03/05/23 tabs benzonatate 200 mg capsule 200 mg PO TID PRN cough #20 caps 03/05/23 prednisone 20 mg tablet 40 mg (2 x 20 mg) PO DAILY #10 tabs 03/05/23 sodium,potassium,mag sulfates 17.5 See Rx Instructions PO .COMPLEX 03/23/23 gram-3.13 gram-1.6 gram oral soln #354 mL (Suprep Bowel Prep Kit) ondansetron 4 mg disintegrating 4 mg PO Q8H PRN nausea and 04/16/23 tablet vomiting #20 tabs Allergies Allergy/AdvReac Type Severity Reaction Status Date / Time ranitidine [From ZANTAC] Allergy Severe DIFFICULTY Verified 03/23/23 11:32 BREATHING, ITCHING Review of Systems Review of Systems: Constitutional : No Weight loss, pos Fever, pos Chills ENT/Mouth : No sore throat, No Rhinorrhea Eyes: No Swelling, No Redness Cardiovascular : No Chest Pain, No SOB, No edema Respiratory : No Cough, No Sputum, No Wheezing Gastrointestinal : Positive Nausea, Positive Vomiting, positive Diarrhea, no abdominal Pain, No Hematochezia, No Melena Genitourinary : No Dysuria, No Urinary Frequency, No Hematuria, No Urgency Musculoskeletal : pos joint pain, pos Myalgias, No Joint Swelling Skin : No Skin Lesions, No rash Neuro : pos Weakness, No Numbness, No Dizziness, No Headache Psych : No Anxiety/Panic, No Depression All other systems reviewed and are negative. Gastrointestinal: Gastrointestinal: Reports nausea PMFSH Past Medical History Attestation statement: The following information was validated with the patient. Source: old records reviewed Medical History Morbid obesity Gross hematuria Lipoma of neck On beta alma at home History of tachycardia Subcutaneous mass of neck Obesity Hx of gastritis History of anxiety History of depression COVID-19 Colitis Gallstones Asthma HTN (hypertension) Fatty liver Dysuria Arthritis Diabetes GERD (gastroesophageal reflux disease) OLIVER on CPAP Chronic back pain Cirrhosis Surgical History Hx of elbow surgery S/P cubital tunnel release History of esophagogastroduodenoscopy (EGD) History of left knee surgery Family History Family History Father No problems noted. Mother HTN (hypertension) Sister Type II diabetes mellitus Social History Social History Are you a primary acute care nursing assistant to a significant other at home: No Do you presently have visiting nurse or other home services: No Alcohol intake: current Alcohol intake frequency: holidays/special occasions only Alcohol type: beer Patient Tobacco Use Status: Current someday Tobacco user Tobacco use type: Cigarette Substance Use Type: Marijuana Advance Directives: No Advance Directives Information Provided: No service: No Current occupational status: unemployed and disabled Physical Exam Vital Signs: Vital Signs: Last Vital Signs Temp 99.6 F 04/16/23 08:15 Pulse 88 04/16/23 08:15 Resp 18 04/16/23 08:15 BP 140/85 H 04/16/23 06:27 Pulse Ox 99 04/16/23 08:15 O2 Del Method Room Air 04/16/23 08:15 BMI result Body Mass Index 39.8 Appearance: Alert. Oriented X3. No acute distress. Eyes: Pupils equal, round and reactive to light. ENT: Pharynx mildly dry MM Neck: Normal inspection. Neck supple. CVS: Normal heart rate and rhythm. Pulses normal. Respiratory: No respiratory distress. Breath sounds normal. Abdomen: Soft and non-tender. Skin: Skin warm and dry. Normal skin color. Normal skin turgor. Extremities: No lower extremity edema. Neuro: Oriented X 3. No motor deficit. No sensory deficit. Course Course Course Narrative: he is asking for food and is feeling better Medications Administered Discontinued Medications Generic Name Dose Route Start Last Admin Trade Name Bladimir PRN Reason Stop Dose Admin Acetaminophen 650 mg 04/16/23 07:07 04/16/23 08:07 Acetaminophen 325 Mg Tablet PO 04/16/23 07:08 650 mg ONCE ONE Administration Sodium Chloride 1,000 mls @ 999 mls/hr 04/16/23 07:15 04/16/23 09:44 Ns IV 04/16/23 08:15 Infused .Q1H1M BRYANNA Infusion Potassium Chloride 10 meq in 100 mls @ 100 mls/hr 04/16/23 08:15 04/16/23 09:48 Potassium Chloride/H20 IV 04/16/23 10:14 100 mls/hr Q1H BRYANNA Administration Morphine Sulfate 4 mg 04/16/23 07:14 04/16/23 08:07 Morphine Sulfate 4 Mg/Ml Cartridge IVPUSH 04/16/23 07:15 4 mg ONCE ONE Administration Protocol Ondansetron HCl 4 mg 04/16/23 07:08 04/16/23 08:07 Ondansetron Hcl 4 Mg/2 Ml Vial IVPUSH 04/16/23 07:09 4 mg ONCE ONE Administration Medical Decision Making Medical Decision Making [facility] Narrative: 48 yo male with PMH of cirrhosis, DM, HTN, GERD, OLIVER, BPH, chronic back pain here with c/o n/v/d and body aches. He has no abdominal pain to palpation. His diarrhea has resolved. He will need basic labs, viral panel, IVF and supportive medications. He likely has viral syndrome given diffuse body aches, chills and n/v. He has no abdominal ttp - doubt appendicitis/GB pathology. Differential Diagnosis Differential Diagnoses: The differential diagnosis associated with the presentation includes viral syndrome, dehydration Admission/Observation Consideration of admission/observation: Escalation of care including admission/observation considered repleted K feels much better tolerating PO stable for DC Lab Data [facility] Lab Attestation statement: I reviewed the patient's lab results. K repleted plts at baseline AST at baseline 04/16/23 07:39 04/16/23 07:39 Labs: Lab Results 04/16/23 04/16/23 Range/Units 07:37 07:39 WBC 4.8 (4.8-10.8) X10*3/uL RBC 4.05 L (4.60-5.80) X10*6/uL Hgb 14.3 (14.0-18.0) g/dl Hct 39.9 L (42.0-52.0) % MCV 98.5 H (80.0-98.0) fL MCH 35.3 H (27.0-33.0) pg MCHC 35.8 (31.0-36.0) g/dl RDW 14.7 (11.0-16.0) % Plt Count 69 L (160-400) X10*3/uL MPV 10.7 (9.4-12.4) fL Immature Gran % (Auto) 0.2 (0.0-0.4) % Neut % (Auto) 56.3 (45-73) % Lymph % (Auto) 29.0 (20-40) % [place] % (Auto) 12.9 H (2-11) % Eos % (Auto) 1.2 (0-4) % Baso % (Auto) 0.4 (0-2) % Lymph # (Auto) 1.4 (1.2-4.9) X10*3/uL [place] # (Auto) 0.6 (0.1-1.2) X10*3/uL Eos # (Auto) 0.1 (0.0-0.4) X10*3/uL Baso # (Auto) 0.0 (0.0-0.2) X10*3/uL Abs Immat Gran (auto) 0.01 (0.00-0.03) X10*3/uL Absolute Neuts (auto) 2.7 (2.0-8.3) x10*3/uL Absolute Nucleated RBC 0.000 (0.0-0.012) X10*3/uL Nucleated RBC % (auto) 0.0 (0.0-0.2) /100WBC Sodium 136 (135-145) mmol/L Potassium 3.2 L (3.3-5.1) mmol/L Chloride 105 (96-108) mmol/L Carbon Dioxide 25 (22-29) mmol/L Anion Gap 9 L (12-20) BUN 6 L (9-16) mg/dL Creatinine 0.67 (0.5-1.4) mg/dL Estim Creat Clear Calc 170.5 Estimated GFR > 60 Random Glucose 98 (60-115) mg/dL Lactic Acid 1.3 (0.5-2.0) mmol/L Calcium 7.9 L (8.4-10.2) mg/dL Total Bilirubin 1.6 H (0.0-1.0) mg/dL AST 73 H (5-37) U/L ALT 40 (0-40) U/L Alkaline Phosphatase 115 (39-117) U/L Total Protein 7.3 (6.5-8.0) g/dL Albumin 2.8 L (3.5-5.0) g/dL Lipase 26 (8-78) U/L Influenza Type A (PCR) NEGATIVE (Negative) Influenza Type B (PCR) NEGATIVE (Negative) RSV RNA Qual (PCR) NEGATIVE (Negative) SARS-CoV-2 RNA (RT-PCR) NEGATIVE (Negative) Independent Interpretation I performed an independent interpretation of an: Plain X-Ray (normal no pneumonia) Radiology Impression Discussion of test interpretation with radiology: I have reviewed the radiologist's reading. External Record Review External record reviewed: Inpatient record Prescription Management I considered prescription management with: Other Discharge Plan Discharge Clinical Impression: Acute viral syndrome, Nausea vomiting and diarrhea, Acute hypokalemia Patient Disposition: Home, Self-Care Instructions: Hypokalemia (ED), Acute Nausea and Vomiting (ED), Acute Diarrhea (ED), Viral Syndrome (ED) Additional Instructions: eat a bland diet advance slowly. bananas apple sauce rice and toast. return for worsening pain, inability to eat and drink, bloody stools, weakness, severe pain or any other concerns. comer diane dieta blanda avanza poco a poco. pl?tanos salsa de manzana arroz y tostadas. Regrese si el dolor empeora, incapacidad para comer y beber, heces con mio, debilidad, dolor intenso o cualquier otra inquietud. Prescriptions: New ondansetron 4 mg tablet,disintegrating 4 mg PO Q8H PRN (Reason: nausea and vomiting) Qty: 20 0RF No Action cholecalciferol (vitamin D3) 25 mcg (1,000 unit) capsule 25 mcg PO DAILY Qty: 90 2RF vitamin A palmitate 3,000 mcg (10,000 unit) capsule 3,000 mcg PO DAILY Qty: 90 2RF Orazinc 25 mg zinc (110 mg) tablet 25 mg PO DAILY Qty: 90 2RF acetaminophen [Tylenol Extra Strength] 500 mg tablet 500 mg PO Q6H PRN (Reason: pain or fever) Qty: 20 0RF montelukast 10 mg tablet 10 mg PO BEDTIME PRN prednisone 20 mg tablet 20 mg PO DAILY 7 Days Qty: 7 0RF benzonatate 100 mg capsule 100 mg PO BID PRN (Reason: cough) 7 Days Qty: 14 0RF azithromycin 250 mg tablet See Rx Instructions .ROUTE .COMPLEX Qty: 6 0RF Rx Instructions: For 250 mg dose pack: take 500 mg today (day 1), then 250 mg for 4 days (days 2-5) prednisone 20 mg tablet 40 mg PO DAILY Qty: 10 0RF benzonatate 200 mg capsule 200 mg PO TID PRN (Reason: cough) Qty: 20 0RF albuterol sulfate 2.5 mg /3 mL (0.083 %) solution for nebulization 2.5 mg inhalation Q4-6H PRN (Reason: shortness of breath or wheezing) Qty: 75 0RF Dexilant 60 mg capsule,biphase delayed releas 60 mg PO DAILY (DME) pen needle, diabetic [Unifine Pentips] 32 gauge x 5/32 needle See Rx Instructions .ROUTE .MEDSUPPLY Qty: 50 Rx Instructions: As directed (DME) lancets [TRUEplus Lancets] 33 gauge misc See Rx Instructions .ROUTE .MEDSUPPLY Qty: 100 Rx Instructions: As directed Toujeo SoloStar U-300 Insulin 300 unit/mL (1.5 mL) insulin pen 20 unit subcut DAILY (DME) FreeStyle Lite Strips Strip See Rx Instructions Not Applicable QID Qty: 10 Rx Instructions: As directed tamsulosin 0.4 mg capsule 0.4 mg PO DAILY 90 Days Qty: 90 1RF tadalafil 10 mg tablet 10 mg PO DAILY 90 Days Qty: 90 1RF tadalafil 20 mg tablet 20 mg PO ONCE PRN (Reason: sexual activity) 30 Days Qty: 30 0RF Rx Instructions: On demand medication take 60 minutes before intended activity lidocaine [Lidoderm] 5 % adhesive patch,medicated 0 patch topical fluticasone propionate [Flovent HFA] 110 mcg/actuation HFA aerosol inhaler 1 puff PO BID fluticasone propionate 50 mcg/actuation spray,suspension 1 spray intranasal DAILY metoprolol succinate 50 mg tablet extended release 24 hr 50 mg PO QAM insulin aspart U-100 100 unit/mL (3 mL) insulin pen 10 unit subcut DIRECTED albuterol sulfate [ProAir HFA] 90 mcg/actuation HFA aerosol inhaler 2 puff inhalation Q4-6H PRN (Reason: dyspnea) cetirizine 10 mg tablet 10 mg PO BEDTIME chlorthalidone 25 mg tablet 12.5 mg PO QAM sodium,potassium,mag sulfates [Suprep Bowel Prep Kit] 17.5-3.13-1.6 gram recon soln See Rx Instructions PO .COMPLEX Qty: 354 0RF Rx Instructions: DILUTE; drink 1/2 at 6-8 pm and half at 11 PM- 1AM Print Language: British
[2023-04-16 07:47] LABS: MANUAL DIFF FLAG NO
[2023-04-16 07:52] LABS: Basophils Percent Auto 0.4 % (0-2); Eosinophils Absolute Auto 0.1 X10*3/uL (0.0-0.4); Eosinophils Percent Auto 1.2 % (0-4); Hematocrit 39.9 % (42.0-52.0); Hemoglobin 14.3 g/dl (14.0-18.0); Imm Gran Abs Auto 0.01 X10*3/uL (0.00-0.03); Imm Gran Pct Auto 0.2 % (0.0-0.4); Lymphocytes Absolute Auto 1.4 X10*3/uL (1.2-4.9); Mean Corpuscular HGB Conc 35.8 g/dl (31.0-36.0); Mean Corpuscular Hemoglobin 35.3 pg (27.0-33.0); Mean Corpuscular Volume 98.5 fL (80.0-98.0); Mean Platelet Volume 10.7 fL (9.4-12.4); Monocytes Absolute Auto 0.6 X10*3/uL (0.1-1.2); Monocytes Percent Auto 12.9 % (2-11); Neutrophils Absolute Auto 2.7 x10*3/uL (2.0-8.3); Neutrophils Percent Auto 56.3 % (45-73); Red Blood Count 4.05 X10*6/uL (4.60-5.80); Red Cell Distribution Width 14.7 % (11.0-16.0); White Blood Count 4.8 X10*3/uL (4.8-10.8)
[2023-04-16 07:55] LABS: Platelet Count 69 X10*3/uL (160-400)
[2023-04-16 07:58] LABS: Lactic Acid 1.3 mmol/L (0.5-2.0)
[2023-04-16] MEDS: 0.9 % Sodium Chloride 1,000 ML 999 ML IV (08:02)
[2023-04-16 08:03] LABS: Alanine Aminotransferase 40 U/L (0-40); Albumin Level 2.8 g/dL (3.5-5.0); Alkaline Phosphatase 115 U/L (39-117); Anion Gap 9 (12-20); Aspartate Amino Transferase 73 U/L (5-37); Bilirubin Total 1.6 mg/dL (0.0-1.0); Blood Urea Nitrogen 6 mg/dL (9-16); Calcium 7.9 mg/dL (8.4-10.2); Carbon Dioxide 25 mmol/L (22-29); Chloride 105 mmol/L (96-108); Creatinine Clr Calc Pharmacy 170.5; Estimated Glomerular Filt Rate > 60; Glucose Random 98 mg/dL (60-115); Lipase 26 U/L (8-78); Potassium 3.2 mmol/L (3.3-5.1); Sodium 136 mmol/L (135-145); Total Protein 7.3 g/dL (6.5-8.0)
[2023-04-16] MEDS: ondansetron HCL 4 MG/2 ML VIAL IVPUSH (08:07)
[2023-04-16] MEDS: Morphine Sulfate 4 MG/ML CARTRIDGE IVPUSH (08:07)
[2023-04-16] MEDS: Acetaminophen 325 MG TABLET 650 MG PO (08:07)
[2023-04-16 08:15] VITALS: PULSE 88; RESP 18; TEMP 37.6; O2SAT 99
--- NOTE | 2023-04-16 08:21 | PC.NURSE ---
22g iv R UPPER OUTER ARM, FLUIDS STARTED AND MEDS GIVEN DOCUMENTED. VSS.
[2023-04-16 08:44] LABS: Influenza A PCR NEGATIVE (Negative); Influenza B PCR NEGATIVE (Negative); Resp Syncy Virus RNA Qual PCR NEGATIVE (Negative); SARS COV2 PCR INHOUSE NEGATIVE (Negative)
[2023-04-16] MEDS: Potassium Chloride/H20 10 MEQ/100 ML PIGGYBACK 100 MEQ IV ×2 (09:48→11:25)
[2023-04-16 10:00] VITALS: BP 119/63; PULSE 84; RESP 18; TEMP 37.1; O2SAT 96
[2023-04-16] MEDS: iohexoL 350 MG/ML 100 ML INFUS..BTL IV (10:41)
--- NOTE | 2023-04-16 13:04 | PC.NURSE ---
pt tolerated po challenge.
== END 2023-04-16 13:21 | disposition home or self-care (01) ==
PROVIDERS: Emergency Provider Emergency Medicine; PCP Family Medicine
DX: B34.9 Viral infection, unspecified (principal); R11.2 Nausea with vomiting, unspecified; E87.6 Hypokalemia; M79.10 Myalgia, unspecified site; R19.7 Diarrhea, unspecified; F17.200 Nicotine dependence, unspecified, uncomplicated; Z11.52 Encounter for screening for COVID-19; Z20.822 Contact with and (suspected) exposure to COVID-19; Z79.899 Other long term (current) drug therapy
CPT/HCPCS: 0241U; 71045; 74177; 80053; 83605; 83690; 85025; 87040; 96361; 96365; 96366; 96375; 99284; J2270; J2405; J3480; Q9967

== ENCOUNTER 2023-06-03 10:47 | Outpatient (REF) | payer MEDICAID, SELFPAY ==
[2023-06-03 11:25] LABS: MANUAL DIFF FLAG NO
[2023-06-03 11:43] LABS: Basophils Percent Auto 0.7 % (0-2); Eosinophils Absolute Auto 0.1 X10*3/uL (0.0-0.4); Eosinophils Percent Auto 2.5 % (0-4); Hematocrit 40.9 % (42.0-52.0); Hemoglobin 14.1 g/dl (14.0-18.0); Imm Gran Abs Auto 0.01 X10*3/uL (0.00-0.03); Imm Gran Pct Auto 0.2 % (0.0-0.4); Lymphocytes Absolute Auto 1.6 X10*3/uL (1.2-4.9); Lymphocytes Percent Auto 36.2 % (20-40); Mean Corpuscular HGB Conc 34.5 g/dl (31.0-36.0); Mean Corpuscular Hemoglobin 35.3 pg (27.0-33.0); Mean Corpuscular Volume 102.5 fL (80.0-98.0); Mean Platelet Volume 10.9 fL (9.4-12.4); Monocytes Absolute Auto 0.5 X10*3/uL (0.1-1.2); Monocytes Percent Auto 10.5 % (2-11); Neutrophils Absolute Auto 2.2 x10*3/uL (2.0-8.3); Neutrophils Percent Auto 49.9 % (45-73); Red Blood Count 3.99 X10*6/uL (4.60-5.80); Red Cell Distribution Width 15.6 % (11.0-16.0); White Blood Count 4.5 X10*3/uL (4.8-10.8)
[2023-06-03 11:44] LABS: Platelet Count 79 X10*3/uL (160-400)
[2023-06-03 11:44] LABS: Appearance Urine Clear; Color Urine Dark Yellow; Glucose Urine UA Negative (Negative); Leukocyte Esterase Urine Trace (Negative); Nitrite Urine Negative (Negative); UMIC TRIGGER UACC YES; Urine Blood Negative (Negative); Urine Ketones Negative (Negative); Urine Protein Negative (Neg-Trace)
[2023-06-03 11:48] LABS: Bacteria Urine None Seen (None Seen); Hyaline Casts Urine 0-2 /LPF (0-2); RBC Urine 0-2 /HPF (0-2); Squamous Epithelial Cell Urine 0-2 /HPF (0-2); WBC Urine 0-5 /HPF (0-5)
[2023-06-03 12:27] LABS: Alanine Aminotransferase 42 U/L (0-40); Albumin Level 2.9 g/dL (3.5-5.0); Alkaline Phosphatase 139 U/L (39-117); Anion Gap 8 (12-20); Aspartate Amino Transferase 81 U/L (5-37); Bilirubin Total 2.1 mg/dL (0.0-1.0); Blood Urea Nitrogen 8 mg/dL (9-16); Calcium 8.7 mg/dL (8.4-10.2); Carbon Dioxide 26 mmol/L (22-29); Chloride 107 mmol/L (96-108); Estimated Glomerular Filt Rate > 60; Glucose Random 110 mg/dL (60-115); Magnesium 1.7 mg/dL (1.6-2.6); Potassium 3.6 mmol/L (3.3-5.1); Sodium 137 mmol/L (135-145); Total Protein 7.9 g/dL (6.5-8.0)
[2023-06-03 12:44] LABS: Vitamin D 25-OH Total 22.6 ng/mL (>30)
[2023-06-03 14:13] LABS: Prostate Specific Antigen 0.29 ng/mL (<0.05-4.0)
[2023-06-03 14:26] LABS: Vitamin B12 642 pg/mL (200-900)
[2023-06-04 08:09] LABS: HBc Num1 0.17 S/CO (0.00-0.79); HBsAGNum1 0.34 S/CO (0.00-0.99); Hepatitis A Antibody IgM 0.32 Index (0-0.79); Hepatitis B Core Antibody Nonreactive (Nonreactive); Hepatitis B Surface Antigen Negative (Negative); ~Hepatitis A Antibody IgM Nonreactive (Nonreactive)
[2023-06-04 10:05] LABS: HBS Num2 10.59 mIU/mL (0-7.99); HBS Num3 10.52 mIU/mL (0-7.99); ~Hepatitis B Surface Antibody GRAYZONE (Nonreactive)
[2023-06-04 10:57] LABS: ~HepC Num2 0.72; ~HepC Num3 0.93; ~Hepatitis C Antibody GRAYZONE (Nonreactive)
== END 2023-06-03 10:48 | disposition home or self-care (01) ==
LOC: HO.HHCL 10:47
PROVIDERS: Urology; Visit Provider Family Medicine
DX: Z12.5 Encounter for screening for malignant neoplasm of prostate (principal); I10 Essential (primary) hypertension; K74.69 Other cirrhosis of liver; E11.69 Type 2 diabetes mellitus with other specified complication; Z79.4 Long term (current) use of insulin; E55.9 Vitamin D deficiency, unspecified; N52.1 Erectile dysfunction due to diseases classified elsewhere
CPT/HCPCS: 36415; 80053; 81001; 82306; 82607; 82746; 83735; 84153; 85025; 86704; 86706; 86709; 86803; 87340

== ENCOUNTER 2023-06-13 14:30 | Emergency (ER) | payer MEDICAID, SELFPAY ==
[2023-06-13 14:37] VITALS: BP 120/75; PULSE 101; RESP 16; TEMP 36.6; O2SAT 98; BMI 42.0
--- NOTE | 2023-06-13 14:37 | ED.GENADULT ---
HPI - General Adult General Chief complaint: General Medical Stated complaint: low bp Time Seen by Provider: 06/13/23 16:13 Source: patient Mode of arrival: ambulatory Limitations: no limitations History of Present Illness HPI narrative: Patient history of hypertension take metoprolol extended release 50 mg daily noticed his blood pressure today 02/24/2065 got scared and did not take his pressure medicine comes here for that otherwise patient denies any symptoms no chest pain no dizziness no passing out episode no nausea no vomiting no diarrhea patient's usual blood pressure is around 120/70 Related Data Home Medications ?Medication ?Instructions ?Recorded ?Confirmed dexlansoprazole 60 mg 60 mg PO DAILY 11/15/19 03/17/22 capsule,biphase delayed release (Dexilant) lancets 33 gauge (TRUEplus Lancets) #100 ea 11/15/19 03/17/22 pen needle, diabetic 32 gauge x #50 ea 11/15/19 03/17/22 5/32 (Unifine Pentips) blood sugar diagnostic (FreeStyle #10 ea 05/03/21 03/17/22 Lite Strips) insulin glargine U-300 conc 300 20 unit subcut DAILY 05/03/21 03/17/22 unit/mL (1.5 mL) subcutaneous pen (T[employer] SoloStar U-300 Insulin) albuterol sulfate 90 mcg/actuation 2 puff inhalation Q4-6H PRN dyspnea 08/09/21 03/17/22 aerosol inhaler (ProAir HFA) cetirizine 10 mg tablet 10 mg PO BEDTIME 08/09/21 03/17/22 fluticasone propionate 110 1 puff PO BID 08/09/21 03/17/22 mcg/actuation HFA aerosol inhaler (Flovent HFA) fluticasone propionate 50 1 spray intranasal DAILY 08/09/21 03/17/22 mcg/actuation nasal spray,suspension insulin aspart U-100 100 unit/mL 10 unit subcut DIRECTED 08/09/21 03/17/22 (3 mL) subcutaneous pen lidocaine 5 % topical patch 0 patch topical 08/09/21 03/17/22 (Lidoderm) metoprolol succinate 50 mg 50 mg PO QAM 08/09/21 03/17/22 tablet,extended release 24 hr montelukast 10 mg tablet 10 mg PO BEDTIME PRN 03/17/22 03/17/22 chlorthalidone 25 mg tablet 12.5 mg PO QAM 11/17/22 Previous Rx's ?Medication ?Instructions ?Recorded acetaminophen 500 mg tablet 500 mg PO Q6H PRN pain or fever 12/24/19 (Tylenol Extra Strength) #20 tabs cholecalciferol (vitamin D3) 25 25 mcg PO DAILY #90 caps 11/27/22 mcg (1,000 unit) capsule vitamin A palmitate 3,000 mcg 3,000 mcg PO DAILY #90 caps 01/14/23 (10,000 unit) capsule zinc sulfate 25 mg zinc (110 mg) 25 mg PO DAILY #90 tabs 01/14/23 tablet (Orazinc) benzonatate 100 mg capsule 100 mg PO BID PRN cough 7 days #14 01/28/23 caps prednisone 20 mg tablet 20 mg PO DAILY 7 days #7 tabs 01/28/23 tadalafil 10 mg tablet 10 mg PO DAILY sexual activity 90 02/06/23 days #90 tabs tadalafil 20 mg tablet 20 mg PO ONCE PRN sexual activity 02/06/23 30 days #30 tabs tamsulosin 0.4 mg capsule 0.4 mg PO DAILY 90 days #90 caps 02/06/23 albuterol sulfate 2.5 mg/3 mL 2.5 mg (3 mL) inhalation Q4-6H PRN 03/05/23 (0.083 %) solution for nebulization shortness of breath or wheezing #75 mL azithromycin 250 mg tablet See Rx Instructions PO .COMPLEX #6 03/05/23 tabs benzonatate 200 mg capsule 200 mg PO TID PRN cough #20 caps 03/05/23 prednisone 20 mg tablet 40 mg (2 x 20 mg) PO DAILY #10 tabs 03/05/23 sodium,potassium,mag sulfates 17.5 See Rx Instructions PO .COMPLEX 03/23/23 gram-3.13 gram-1.6 gram oral soln #354 mL (Suprep Bowel Prep Kit) ondansetron 4 mg disintegrating 4 mg PO Q8H PRN nausea and 04/16/23 tablet vomiting #20 tabs Allergies Allergy/AdvReac Type Severity Reaction Status Date / Time ranitidine [From ZANTAC] Allergy Severe DIFFICULTY Verified 06/13/23 14:39 BREATHING, ITCHING Review of Systems Review of Systems: Yes all other systems are reviewed and are negative COUNTS INCLUDE 234 BEDS AT THE [facility] Past Medical History Medical History Morbid obesity Gross hematuria Lipoma of neck On beta alma at home History of tachycardia Subcutaneous mass of neck Obesity Hx of gastritis History of anxiety History of depression COVID-19 Colitis Gallstones Asthma HTN (hypertension) Fatty liver Dysuria Arthritis Diabetes GERD (gastroesophageal reflux disease) OLIVER on CPAP Chronic back pain Cirrhosis Surgical History Hx of elbow surgery S/P cubital tunnel release History of esophagogastroduodenoscopy (EGD) History of left knee surgery Family History Family History Father No problems noted. Mother HTN (hypertension) Sister Type II diabetes mellitus Social History Social History Are you a primary director long term care to a significant other at home: No Do you presently have visiting nurse or other home services: No Alcohol intake: current Alcohol intake frequency: holidays/special occasions only Alcohol type: beer Patient Tobacco Use Status: Current someday Tobacco user Tobacco use type: Cigarette Substance Use Type: Marijuana Advance Directives: No Advance Directives Information Provided: No Do you have a plan to hurt others: No Plan service: No Current occupational status: unemployed and disabled Physical Exam ED Vital Signs: Vital Signs - 24 hr 06/13/23 14:37 06/13/23 16:31 06/13/23 16:32 Temperature 97.9 F Pulse Rate 101 H 107 H 110 H Respiratory Rate 16 Blood Pressure 120/75 127/71 122/72 Pulse Oximetry 98 Oxygen Delivery Method Room Air 06/13/23 16:36 Temperature Pulse Rate 116 H Respiratory Rate Blood Pressure 136/81 Pulse Oximetry Oxygen Delivery Method BMI result Body Mass Index 42.0 Appearance: Alert. Oriented X3. No acute distress. Eyes: PERRLA, No Nystagmus ENT: Pharynx normal. Oral Mucosa moist Neck: Normal inspection. Neck supple. CVS: Normal heart rate and rhythm. Pulses normal. Respiratory: No respiratory distress. Equal air entry bilateral, no wheezing/rales/rhonchi Abdomen: Soft and nontender. Bowel sounds are present, no mass palpable, no CVA tenderness Skin: Skin warm and dry. Normal skin color. Normal skin turgor. Extremities: No lower extremity edema. No calf tenderness Neuro: Oriented X 3. No motor deficit. No sensory deficit.No cerebellar signs , cranial nerves II-XII intact Course Course Course Narrative: RME performed by Maria George PA-C. Patient is a 48 year old assigned male at presenting to the emergency department with low blood pressure and feeling generally unwell. Detailed physical exam and review of systems are deferred to the field test engineer. Labs ordered. Patient placed back in the waiting room pending room availability and results. Medical Decision Making Medical Decision Making MDM Narrative: Patient's transient hypotension without orthostatic hypotension asymptomatic no signs of fluid loss advised to drink plenty of fluids and follow with PCP Lab Data MDM Lab Attestation statement: I reviewed the patient's lab results. 06/13/23 14:47 06/13/23 14:47 Labs: Lab Results 06/13/23 Range/Units 14:47 WBC 7.3 (4.8-10.8) X10*3/uL RBC 4.06 L (4.60-5.80) X10*6/uL Hgb 14.6 (14.0-18.0) g/dl Hct 41.3 L (42.0-52.0) % MCV 101.7 H (80.0-98.0) fL MCH 36.0 H (27.0-33.0) pg MCHC 35.4 (31.0-36.0) g/dl RDW 15.8 (11.0-16.0) % Plt Count 109 L D (160-400) X10*3/uL MPV 10.4 (9.4-12.4) fL Immature Gran % (Auto) 0.1 (0.0-0.4) % Neut % (Auto) 52.7 (45-73) % Lymph % (Auto) 35.6 (20-40) % Butts % (Auto) 9.6 (2-11) % Eos % (Auto) 1.4 (0-4) % Baso % (Auto) 0.6 (0-2) % Lymph # (Auto) 2.6 (1.2-4.9) X10*3/uL Butts # (Auto) 0.7 (0.1-1.2) X10*3/uL Eos # (Auto) 0.1 (0.0-0.4) X10*3/uL Baso # (Auto) 0.0 (0.0-0.2) X10*3/uL Abs Immat Gran (auto) 0.01 (0.00-0.03) X10*3/uL Absolute Neuts (auto) 3.8 (2.0-8.3) x10*3/uL Absolute Nucleated RBC 0.000 (0.0-0.012) X10*3/uL Nucleated RBC % (auto) 0.0 (0.0-0.2) /100WBC Sodium 141 (135-145) mmol/L Potassium 3.8 (3.3-5.1) mmol/L Chloride 110 H (96-108) mmol/L Carbon Dioxide 24 (22-29) mmol/L Anion Gap 11 L (12-20) BUN 7 L (9-16) mg/dL Creatinine 0.73 (0.5-1.4) mg/dL Estim Creat Clear Calc 141.5 Estimated GFR > 60 Random Glucose 132 H (60-115) mg/dL Calcium 8.3 L (8.4-10.2) mg/dL Magnesium 1.9 (1.6-2.6) mg/dL Total Bilirubin 0.9 (0.0-1.0) mg/dL AST 83 H (5-37) U/L ALT 59 H (0-40) U/L Alkaline Phosphatase 135 H (39-117) U/L Total Protein 8.1 H (6.5-8.0) g/dL Albumin 2.9 L (3.5-5.0) g/dL Influenza Type A (PCR) NEGATIVE (Negative) Influenza Type B (PCR) NEGATIVE (Negative) RSV RNA Qual (PCR) NEGATIVE (Negative) SARS-CoV-2 RNA (RT-PCR) NEGATIVE (Negative) Independent Interpretation I performed an independent interpretation of an: EKG Interpretation: Sinus tachycardia heart rate 105 beats per minute right bundle-branch block no acute ST-T changes normal intervals no acute ischemia Discharge Plan Discharge Clinical Impression: Hypertension Patient Disposition: Home, Self-Care Instructions: Chronic Hypertension (ED) Additional Instructions: You have borderline hypertension Check blood pressure before you take your medicines if it is less than 120/80 do not take blood pressure medicine Follow with PCP Prescriptions: No Action cholecalciferol (vitamin D3) 25 mcg (1,000 unit) capsule 25 mcg PO DAILY Qty: 90 2RF vitamin A palmitate 3,000 mcg (10,000 unit) capsule 3,000 mcg PO DAILY Qty: 90 2RF Orazinc 25 mg zinc (110 mg) tablet 25 mg PO DAILY Qty: 90 2RF acetaminophen [Tylenol Extra Strength] 500 mg tablet 500 mg PO Q6H PRN (Reason: pain or fever) Qty: 20 0RF montelukast 10 mg tablet 10 mg PO BEDTIME PRN prednisone 20 mg tablet 20 mg PO DAILY 7 Days Qty: 7 0RF benzonatate 100 mg capsule 100 mg PO BID PRN (Reason: cough) 7 Days Qty: 14 0RF ondansetron 4 mg tablet,disintegrating 4 mg PO Q8H PRN (Reason: nausea and vomiting) Qty: 20 0RF azithromycin 250 mg tablet See Rx Instructions .ROUTE .COMPLEX Qty: 6 0RF Rx Instructions: For 250 mg dose pack: take 500 mg today (day 1), then 250 mg for 4 days (days 2-5) prednisone 20 mg tablet 40 mg PO DAILY Qty: 10 0RF benzonatate 200 mg capsule 200 mg PO TID PRN (Reason: cough) Qty: 20 0RF albuterol sulfate 2.5 mg /3 mL (0.083 %) solution for nebulization 2.5 mg inhalation Q4-6H PRN (Reason: shortness of breath or wheezing) Qty: 75 0RF Dexilant 60 mg capsule,biphase delayed releas 60 mg PO DAILY (DME) pen needle, diabetic [Unifine Pentips] 32 gauge x 5/32 needle See Rx Instructions .ROUTE .MEDSUPPLY Qty: 50 Rx Instructions: As directed (DME) lancets [TRUEplus Lancets] 33 gauge misc See Rx Instructions .ROUTE .MEDSUPPLY Qty: 100 Rx Instructions: As directed [employer] SoloStar U-300 Insulin 300 unit/mL (1.5 mL) insulin pen 20 unit subcut DAILY (DME) FreeStyle Lite Strips Strip See Rx Instructions Not Applicable QID Qty: 10 Rx Instructions: As directed tamsulosin 0.4 mg capsule 0.4 mg PO DAILY 90 Days Qty: 90 1RF tadalafil 10 mg tablet 10 mg PO DAILY 90 Days Qty: 90 1RF tadalafil 20 mg tablet 20 mg PO ONCE PRN (Reason: sexual activity) 30 Days Qty: 30 0RF Rx Instructions: On demand medication take 60 minutes before intended activity lidocaine [Lidoderm] 5 % adhesive patch,medicated 0 patch topical fluticasone propionate [Flovent HFA] 110 mcg/actuation HFA aerosol inhaler 1 puff PO BID fluticasone propionate 50 mcg/actuation spray,suspension 1 spray intranasal DAILY metoprolol succinate 50 mg tablet extended release 24 hr 50 mg PO QAM insulin aspart U-100 100 unit/mL (3 mL) insulin pen 10 unit subcut DIRECTED albuterol sulfate [ProAir HFA] 90 mcg/actuation HFA aerosol inhaler 2 puff inhalation Q4-6H PRN (Reason: dyspnea) cetirizine 10 mg tablet 10 mg PO BEDTIME chlorthalidone 25 mg tablet 12.5 mg PO QAM sodium,potassium,mag sulfates [Suprep Bowel Prep Kit] 17.5-3.13-1.6 gram recon soln See Rx Instructions PO .COMPLEX Qty: 354 0RF Rx Instructions: DILUTE; drink 1/2 at 6-8 pm and half at 11 PM- 1AM Print Language: Ugandan
--- NOTE | 2023-06-13 14:38 | ECG_ITS ---
Test Reason : HYPOTENSION Blood Pressure : / mmHG Vent. Rate : 105 BPM Atrial Rate : 105 BPM P-R Int : 146 ms QRS Dur : 128 ms QT Int : 394 ms P-R-T Axes : 032 001 023 degrees QTc Int : 520 ms Sinus tachycardia Right bundle branch block Abnormal ECG When compared with ECG of 05-MAR-2023 13:00, Right bundle branch block is now Present Referred By: Maria George Electronically Signed By:KVNG ANDERSEN MD
[2023-06-13 14:52] LABS: MANUAL DIFF FLAG NO
[2023-06-13 14:54] LABS: Basophils Percent Auto 0.6 % (0-2); Eosinophils Absolute Auto 0.1 X10*3/uL (0.0-0.4); Eosinophils Percent Auto 1.4 % (0-4); Hematocrit 41.3 % (42.0-52.0); Hemoglobin 14.6 g/dl (14.0-18.0); Imm Gran Abs Auto 0.01 X10*3/uL (0.00-0.03); Imm Gran Pct Auto 0.1 % (0.0-0.4); Lymphocytes Absolute Auto 2.6 X10*3/uL (1.2-4.9); Lymphocytes Percent Auto 35.6 % (20-40); Mean Corpuscular HGB Conc 35.4 g/dl (31.0-36.0); Mean Corpuscular Volume 101.7 fL (80.0-98.0); Mean Platelet Volume 10.4 fL (9.4-12.4); Monocytes Absolute Auto 0.7 X10*3/uL (0.1-1.2); Monocytes Percent Auto 9.6 % (2-11); Neutrophils Absolute Auto 3.8 x10*3/uL (2.0-8.3); Neutrophils Percent Auto 52.7 % (45-73); Platelet Count 109 X10*3/uL (160-400); Red Blood Count 4.06 X10*6/uL (4.60-5.80); Red Cell Distribution Width 15.8 % (11.0-16.0); White Blood Count 7.3 X10*3/uL (4.8-10.8)
[2023-06-13 15:11] LABS: Alanine Aminotransferase 59 U/L (0-40); Albumin Level 2.9 g/dL (3.5-5.0); Alkaline Phosphatase 135 U/L (39-117); Anion Gap 11 (12-20); Aspartate Amino Transferase 83 U/L (5-37); Bilirubin Total 0.9 mg/dL (0.0-1.0); Blood Urea Nitrogen 7 mg/dL (9-16); Calcium 8.3 mg/dL (8.4-10.2); Carbon Dioxide 24 mmol/L (22-29); Chloride 110 mmol/L (96-108); Creatinine Clr Calc Pharmacy 141.5; Estimated Glomerular Filt Rate > 60; Glucose Random 132 mg/dL (60-115); Magnesium 1.9 mg/dL (1.6-2.6); Potassium 3.8 mmol/L (3.3-5.1); Sodium 141 mmol/L (135-145); Total Protein 8.1 g/dL (6.5-8.0)
[2023-06-13 15:40] LABS: Influenza A PCR NEGATIVE (Negative); Influenza B PCR NEGATIVE (Negative); Resp Syncy Virus RNA Qual PCR NEGATIVE (Negative); SARS COV2 PCR INHOUSE NEGATIVE (Negative)
[2023-06-13 16:31] VITALS: BP 127/71; PULSE 107
[2023-06-13 16:32] VITALS: BP 122/72; PULSE 110
[2023-06-13 16:36] VITALS: BP 136/81; PULSE 116
[2023-06-13 16:59] VITALS: BP 136/81; PULSE 107; RESP 16; TEMP 36.6; O2SAT 100
== END 2023-06-13 17:00 | disposition home or self-care (01) ==
PROVIDERS: Physician Assistant Medical; Emergency Provider Internal Medicine; PCP Family Medicine
DX: I10 Essential (primary) hypertension (principal); R03.1 Nonspecific low blood-pressure reading; J45.909 Unspecified asthma, uncomplicated; Z79.899 Other long term (current) drug therapy
CPT/HCPCS: 0241U; 80053; 83735; 85025; 93005; 99283

== ENCOUNTER → 2023-06-13 14:38 | Outpatient (BNV) | payer MEDICAID, SELFPAY | PROVIDERS: Emergency Provider Internal Medicine; PCP Family Medicine; Visit Provider Internal Medicine Cardiovascular Disease | DX: R00.0 Tachycardia, unspecified (principal) | CPT/HCPCS: 93010 ==

== ENCOUNTER 2023-08-25 12:17 | Emergency (ER) | payer MEDICAID, SELFPAY ==
--- NOTE | 2023-08-25 13:31 | PC.NURSE ---
No call to name to triage x 1 at 13:31.
== END 2023-08-25 14:09 | disposition left against medical advice (07) ==
LOC: HO.ED 13:56
PROVIDERS: Emergency Provider Emergency Medicine; PCP Family Medicine
DX: R50.9 Fever, unspecified (principal); Z53.21 Procedure and treatment not carried out due to patient leaving prior to being seen by health care provider

== ENCOUNTER 2023-09-01 09:49 | Emergency (ER) | payer MEDICAID, SELFPAY ==
--- NOTE | ~2023-09-01 | CT_ITS ---
EXAMINATION: CT ANGIOGRAM OF THE CHEST, ABDOMEN AND PELVIS WITHOUT AND WITH CONTRAST CLINICAL INFORMATION: Chest pain, dizziness, cocaine use COMPARISON: CT abdomen and pelvis from 04/16/2023 TECHNIQUE: Multidetector volumetric CT imaging of the chest, abdomen, and pelvis was performed before and after the administration of 100 mL of Omnipaque 350 intravenous contrast without immediate adverse reactions. 3D POSTPROCESSING: Multiple 3-D angiographic images were processed from the initial data set by the geodetic surveyor technologist at the modality workstation under concurrent physician supervision. DOSE LOWERING TECHNIQUES: This CT examination was performed using dose optimization techniques as appropriate, variously including the following: - Automated exposure control - Adjustment of mA and/or kV according to patient size (this includes techniques or standardized protocols for targeted exams where dose is matched to indication/reason for exam; i.e. extremities or head) - Use of iterative reconstruction technique DLP: 895 mGy-cm. FINDINGS: VASCULAR: ASCENDING AORTA: Normal in caliber and patent. No evidence of aneurysm or dissection. AORTIC ARCH: Normal in caliber and patent. No evidence of aneurysm or dissection. DESCENDING AORTA: Normal in caliber and patent. No evidence of aneurysm or dissection. ABDOMINAL AORTA: Normal in caliber and patent. No evidence of aneurysm or dissection. CELIOMESENTERIC ARTERIES: Patent RENAL ARTERIES: Patent RIGHT ILIOFEMORAL ARTERIES: Normal in caliber and patent. No evidence of aneurysm or dissection. LEFT ILIOFEMORAL ARTERIES: Normal in caliber and patent. No evidence of aneurysm or dissection. PULMONARY ARTERIES: Examination not tailored to the pulmonary arteries however no evidence of acute pulmonary embolus NONVASCULAR: LUNGS: The lungs are clear with no evidence of inflammation or nodules. MEDIASTINUM: Heart is normal in size. Pericardium appears normal. No mediastinal or hilar lymphadenopathy CORONARY ARTERY CALCIFICATION: None visualized on this study. PLEURA: There is no pleural effusion. No pleural mass or thickening. LIVER, GALLBLADDER, AND BILIARY TREE: Liver is small and nodular consistent with underlying cirrhosis. No discrete hepatic mass. Small calcified stones seen within the gallbladder. No gallbladder distention, wall thickening or biliary ductal dilatation PANCREAS: Unremarkable. SPLEEN: Spleen is enlarged with AP diameter of 17.8 cm ADRENAL GLANDS: Unremarkable. KIDNEYS AND URETERS: The kidneys are normal in size, shape, and attenuation. No hydronephrosis, hydroureter, or calculi seen. No perinephric stranding. Stable subcentimeter hypodensities within the bilateral kidneys likely representing cysts. BLADDER: Unremarkable. GASTROINTESTINAL TRACT: The small and large bowel are unremarkable. The appendix is unremarkable. ABDOMINAL WALL: No significant hernia is appreciated. LYMPH NODES: Normal. PELVIC VISCERA: Unremarkable. OSSEOUS STRUCTURES: Degenerative changes the right shoulder joint, thoracic and lumbar spine CT/CT angio abdomen pelvis IMPRESSION: 1. No evidence of acute pulmonary embolus. 2. Thoracic and abdominal aorta is normal in caliber and patent. No evidence of aneurysm or dissection. 3. Cirrhosis with splenomegaly. No significant ascites.
--- NOTE | ~2023-09-01 | CT_ITS ---
EXAMINATION: CT ANGIOGRAM OF THE CHEST, ABDOMEN AND PELVIS WITHOUT AND WITH CONTRAST CLINICAL INFORMATION: Chest pain, dizziness, cocaine use COMPARISON: CT abdomen and pelvis from 04/16/2023 TECHNIQUE: Multidetector volumetric CT imaging of the chest, abdomen, and pelvis was performed before and after the administration of 100 mL of Omnipaque 350 intravenous contrast without immediate adverse reactions. 3D POSTPROCESSING: Multiple 3-D angiographic images were processed from the initial data set by the fish technologist at the modality workstation under concurrent physician supervision. DOSE LOWERING TECHNIQUES: This CT examination was performed using dose optimization techniques as appropriate, variously including the following: - Automated exposure control - Adjustment of mA and/or kV according to patient size (this includes techniques or standardized protocols for targeted exams where dose is matched to indication/reason for exam; i.e. extremities or head) - Use of iterative reconstruction technique DLP: 895 mGy-cm. FINDINGS: VASCULAR: ASCENDING AORTA: Normal in caliber and patent. No evidence of aneurysm or dissection. AORTIC ARCH: Normal in caliber and patent. No evidence of aneurysm or dissection. DESCENDING AORTA: Normal in caliber and patent. No evidence of aneurysm or dissection. ABDOMINAL AORTA: Normal in caliber and patent. No evidence of aneurysm or dissection. CELIOMESENTERIC ARTERIES: Patent RENAL ARTERIES: Patent RIGHT ILIOFEMORAL ARTERIES: Normal in caliber and patent. No evidence of aneurysm or dissection. LEFT ILIOFEMORAL ARTERIES: Normal in caliber and patent. No evidence of aneurysm or dissection. PULMONARY ARTERIES: Examination not tailored to the pulmonary arteries however no evidence of acute pulmonary embolus NONVASCULAR: LUNGS: The lungs are clear with no evidence of inflammation or nodules. MEDIASTINUM: Heart is normal in size. Pericardium appears normal. No mediastinal or hilar lymphadenopathy CORONARY ARTERY CALCIFICATION: None visualized on this study. PLEURA: There is no pleural effusion. No pleural mass or thickening. LIVER, GALLBLADDER, AND BILIARY TREE: Liver is small and nodular consistent with underlying cirrhosis. No discrete hepatic mass. Small calcified stones seen within the gallbladder. No gallbladder distention, wall thickening or biliary ductal dilatation PANCREAS: Unremarkable. SPLEEN: Spleen is enlarged with AP diameter of 17.8 cm ADRENAL GLANDS: Unremarkable. KIDNEYS AND URETERS: The kidneys are normal in size, shape, and attenuation. No hydronephrosis, hydroureter, or calculi seen. No perinephric stranding. Stable subcentimeter hypodensities within the bilateral kidneys likely representing cysts. BLADDER: Unremarkable. GASTROINTESTINAL TRACT: The small and large bowel are unremarkable. The appendix is unremarkable. ABDOMINAL WALL: No significant hernia is appreciated. LYMPH NODES: Normal. PELVIC VISCERA: Unremarkable. OSSEOUS STRUCTURES: Degenerative changes the right shoulder joint, thoracic and lumbar spine CT/CT angio chest aorta IMPRESSION: 1. No evidence of acute pulmonary embolus. 2. Thoracic and abdominal aorta is normal in caliber and patent. No evidence of aneurysm or dissection. 3. Cirrhosis with splenomegaly. No significant ascites.
--- NOTE | ~2023-09-01 | XR_ITS ---
EXAMINATION: XR CHEST CLINICAL INFORMATION: Chest pain COMPARISON: 04/16/2019 TECHNIQUE: 2 views of the chest were obtained. FINDINGS: No significant abnormality is noted involving the heart, lungs, mediastinum, bony thorax or soft tissues. XR/XR chest 2V IMPRESSION: Unremarkable examination.
[2023-09-01 10:02] VITALS: BP 127/71; PULSE 104; RESP 18; TEMP 36.7; O2SAT 98; BMI 36.9
--- NOTE | 2023-09-01 10:11 | ECG_ITS ---
Test Reason : cp Blood Pressure : / mmHG Vent. Rate : 100 BPM Atrial Rate : 100 BPM P-R Int : 164 ms QRS Dur : 080 ms QT Int : 380 ms P-R-T Axes : 038 011 017 degrees QTc Int : 490 ms Normal sinus rhythm Prolonged QT Abnormal ECG When compared with ECG of 13-JUN-2023 14:40, Right bundle branch block is no longer Present Referred By: Generic ED Physician Electronically Signed By:KVNG ANDERSEN MD
[2023-09-01 10:42] LABS: Basophils Percent Auto 0.6 % (0-2); Eosinophils Absolute Auto 0.1 X10*3/uL (0.0-0.4); Eosinophils Percent Auto 1.9 % (0-4); Hematocrit 38.3 % (42.0-52.0); Hemoglobin 13.5 g/dl (14.0-18.0); Imm Gran Abs Auto 0.01 X10*3/uL (0.00-0.03); Imm Gran Pct Auto 0.2 % (0.0-0.4); Lymphocytes Absolute Auto 1.9 X10*3/uL (1.2-4.9); Lymphocytes Percent Auto 36.9 % (20-40); MANUAL DIFF FLAG NO; Mean Corpuscular HGB Conc 35.2 g/dl (31.0-36.0); Mean Corpuscular Hemoglobin 36.1 pg (27.0-33.0); Mean Corpuscular Volume 102.4 fL (80.0-98.0); Mean Platelet Volume 10.3 fL (9.4-12.4); Monocytes Absolute Auto 0.6 X10*3/uL (0.1-1.2); Monocytes Percent Auto 11.5 % (2-11); Neutrophils Absolute Auto 2.5 x10*3/uL (2.0-8.3); Neutrophils Percent Auto 48.9 % (45-73); Red Blood Count 3.74 X10*6/uL (4.60-5.80); Red Cell Distribution Width 15.1 % (11.0-16.0); White Blood Count 5.2 X10*3/uL (4.8-10.8)
[2023-09-01 10:43] LABS: Platelet Count 81 X10*3/uL (160-400)
[2023-09-01 10:59] LABS: Alanine Aminotransferase 44 U/L (0-40); Alkaline Phosphatase 128 U/L (39-117); Anion Gap 14 (12-20); Aspartate Amino Transferase 88 U/L (5-37); Bilirubin Total 1.6 mg/dL (0.0-1.0); Blood Urea Nitrogen 4 mg/dL (9-16); Calcium 8.2 mg/dL (8.4-10.2); Carbon Dioxide 21 mmol/L (22-29); Chloride 106 mmol/L (96-108); Creatinine Clr Calc Pharmacy 188.9; Estimated Glomerular Filt Rate > 60; Glucose Random 106 mg/dL (60-115); Potassium 3.3 mmol/L (3.3-5.1); Sodium 138 mmol/L (135-145); Total Protein 7.4 g/dL (6.5-8.0)
[2023-09-01 11:06] LABS: Troponin-I High Sensitivity 7.2 ng/L (<3.5-35.0)
--- NOTE | 2023-09-01 11:06 | ED_ITS ---
HPI - General Adult General Chief complaint: General Medical Stated complaint: low BP Time Seen by Provider: 09/01/23 11:04 Source: patient Mode of arrival: ambulatory Limitations: no limitations History of Present Illness HPI narrative: 48 year old male PNH: cirrhosis, DM, HTN, GERD, OLIVER, BPH, chronic back pain who presents emergency department with chest pain dizziness tingling in his feet and headache. He admits to cocaine use yesterday. Pain to the right side of his head dry mouth intermittent chest pain and dizziness he also admits to alcohol use states she has not drink every day as any falls or injuries Related Data Home Medications ?Medication ?Instructions ?Recorded ?Confirmed dexlansoprazole 60 mg 60 mg PO DAILY 11/15/19 03/17/22 capsule,biphase delayed release (Dexilant) lancets 33 gauge (TRUEplus Lancets) #100 ea 11/15/19 03/17/22 pen needle, diabetic 32 gauge x #50 ea 11/15/19 03/17/22 5/32 (Unifine Pentips) blood sugar diagnostic (FreeStyle #10 ea 05/03/21 03/17/22 Lite Strips) insulin glargine U-300 conc 300 20 unit subcut DAILY 05/03/21 03/17/22 unit/mL (1.5 mL) subcutaneous pen (Toujeo SoloStar U-300 Insulin) albuterol sulfate 90 mcg/actuation 2 puff inhalation Q4-6H PRN dyspnea 08/09/21 03/17/22 aerosol inhaler (ProAir HFA) cetirizine 10 mg tablet 10 mg PO BEDTIME 08/09/21 03/17/22 fluticasone propionate 110 1 puff PO BID 08/09/21 03/17/22 mcg/actuation HFA aerosol inhaler (Flovent HFA) fluticasone propionate 50 1 spray intranasal DAILY 08/09/21 03/17/22 mcg/actuation nasal spray,suspension insulin aspart U-100 100 unit/mL 10 unit subcut DIRECTED 08/09/21 03/17/22 (3 mL) subcutaneous pen lidocaine 5 % topical patch 0 patch topical 08/09/21 03/17/22 (Lidoderm) metoprolol succinate 50 mg 50 mg PO QAM 08/09/21 03/17/22 tablet,extended release 24 hr montelukast 10 mg tablet 10 mg PO BEDTIME PRN 03/17/22 03/17/22 chlorthalidone 25 mg tablet 12.5 mg PO QAM 11/17/22 Previous Rx's ?Medication ?Instructions ?Recorded acetaminophen 500 mg tablet 500 mg PO Q6H PRN pain or fever 12/24/19 (Tylenol Extra Strength) #20 tabs cholecalciferol (vitamin D3) 25 25 mcg PO DAILY #90 caps 11/27/22 mcg (1,000 unit) capsule vitamin A palmitate 3,000 mcg 3,000 mcg PO DAILY #90 caps 01/14/23 (10,000 unit) capsule zinc sulfate 25 mg zinc (110 mg) 25 mg PO DAILY #90 tabs 01/14/23 tablet (Orazinc) benzonatate 100 mg capsule 100 mg PO BID PRN cough 7 days #14 01/28/23 caps prednisone 20 mg tablet 20 mg PO DAILY 7 days #7 tabs 01/28/23 tadalafil 10 mg tablet 10 mg PO DAILY sexual activity 90 02/06/23 days #90 tabs tamsulosin 0.4 mg capsule 0.4 mg PO DAILY 90 days #90 caps 02/06/23 albuterol sulfate 2.5 mg/3 mL 2.5 mg (3 mL) inhalation Q4-6H PRN 03/05/23 (0.083 %) solution for nebulization shortness of breath or wheezing #75 mL azithromycin 250 mg tablet See Rx Instructions PO .COMPLEX #6 03/05/23 tabs benzonatate 200 mg capsule 200 mg PO TID PRN cough #20 caps 03/05/23 prednisone 20 mg tablet 40 mg (2 x 20 mg) PO DAILY #10 tabs 03/05/23 sodium,potassium,mag sulfates 17.5 See Rx Instructions PO .COMPLEX 03/23/23 gram-3.13 gram-1.6 gram oral soln #354 mL (Suprep Bowel Prep Kit) ondansetron 4 mg disintegrating 4 mg PO Q8H PRN nausea and 04/16/23 tablet vomiting #20 tabs tadalafil 20 mg tablet 20 mg PO ONCE PRN sexual activity 08/19/23 30 days #30 tabs Allergies Allergy/AdvReac Type Severity Reaction Status Date / Time ranitidine [From ZANTAC] Allergy Severe DIFFICULTY Verified 09/01/23 10:11 BREATHING, ITCHING Review of Systems 2 Review of Systems: Review of systems: General: Patient denies any fever chills recent illness or falls Musculoskeletal: Denies back pain or body aches or other injuries HEENT: denies headache, runny nose, ear pain Respiratory: denies shortness of breath, cough Cardiovascular: no chest pain or palpitations : denies dysuria, frequency Abdomen: no nausea vomiting denies abdominal pain Extremities: no swelling, no pain Skin: no diaphoresis Yes all other systems are reviewed and are negative [facility] Past Medical History Medical History Morbid obesity Gross hematuria Lipoma of neck On beta alma at home History of tachycardia Subcutaneous mass of neck Obesity Hx of gastritis History of anxiety History of depression COVID-19 Colitis Gallstones Asthma HTN (hypertension) Fatty liver Dysuria Arthritis Diabetes GERD (gastroesophageal reflux disease) OLIVER on CPAP Chronic back pain Cirrhosis Surgical History Hx of elbow surgery S/P cubital tunnel release History of esophagogastroduodenoscopy (EGD) History of left knee surgery Family History Family History Father No problems noted. Mother HTN (hypertension) Sister Type II diabetes mellitus Social History Social History Are you a primary respiratory care faculty to a significant other at home: No Do you presently have visiting nurse or other home services: No Alcohol intake: current Alcohol intake frequency: holidays/special occasions only Alcohol type: beer Patient Tobacco Use Status: Current someday Tobacco user Tobacco use type: Cigarette Smoked in Last 30 Days: Yes Use of substances other than those prescribed or required for medical reasons: Yes Substance Use Type: Crack/Cocaine Advance Directives: No Advance Directives Information Provided: Yes Do you have a plan to hurt others: No Plan service: No Current occupational status: unemployed and disabled Physical Exam ED Vital Signs: Vital Signs - 24 hr 09/01/23 10:02 09/01/23 11:50 09/01/23 12:11 Temperature 98.1 F 97.8 F Pulse Rate 104 H 92 105 H Respiratory Rate 18 13 12 Blood Pressure 127/71 132/69 Pulse Oximetry 98 98 Oxygen Delivery Method Room Air Room Air 09/01/23 14:26 Temperature Pulse Rate 92 Respiratory Rate 12 Blood Pressure 130/70 Pulse Oximetry 97 Oxygen Delivery Method Room Air BMI result Body Mass Index 36.9 Neurological exam: CN II- XII tested. Patient is alert and oriented to person place and time. Patient has no dysphagia or dysarthia, denies good vision in all four vision watson no nystagmus on exam, good strength to upper and lower extremities with normal reflexes to brachioradialis, wrist, patella and achilles. Negative romberg, good finger to nose and heel to gomez. General: Well-appearing well-nourished in no signs of distress HEENT: Normocephalic atraumatic Neck: No signs of JVD, no masses no tenderness or lymphadenopathy Cardiovascular: Regular rate and rhythm Respiratory: Clear to auscultation bilaterally Abdomen: Soft nontender no masses Extremities: Normal pedal pulses no signs of edema Skin: Dry warm no rashes Back: No tenderness full ROM Course Course Course Narrative: CTA and labs are all normal. Likely polysubstance abuse and cocaine use. I will send home. Medications Administered Discontinued Medications Generic Name Dose Route Start Last Admin Trade Name Freq PRN Reason Stop Dose Admin Sodium Chloride 1,000 mls @ 999 mls/hr 09/01/23 11:45 09/01/23 15:08 Ns IV 09/01/23 12:45 Infused .Q1H1M BRYANNA Infusion Iohexol 100 ml 09/01/23 13:51 09/01/23 13:51 Iohexol 350 Mg/Ml 100 Ml Infus..Btl IV 09/01/23 13:52 100 ml ONCE ONE Administration Morphine Sulfate 4 mg 09/01/23 11:35 09/01/23 12:06 Morphine Sulfate 4 Mg/Ml Cartridge IVPUSH 09/01/23 11:36 4 mg ONCE ONE Administration Protocol Ondansetron HCl 4 mg 09/01/23 12:12 09/01/23 12:35 Ondansetron Hcl 4 Mg/2 Ml Vial IVPUSH 09/01/23 12:13 4 mg ONCE ONE Administration Medical Decision Making Medical Decision Making MDM Narrative: Will send patient for a CT I will add on a lipase to the tests were done Differential Diagnosis Differential Diagnoses: The differential diagnosis associated with the presentation includes Concern for dissection ACS chest pain cocaine chest pain also has pain to his right temporal area temporal arteritis dehydration electrolyte abnormality dizziness pancreatitis gastritis Admission/Observation Consideration of admission/observation: Escalation of care including admission/observation considered not meeting inpatient criteria Lab Data MDM Lab Attestation statement: I reviewed the patient's lab results. 09/01/23 10:33 09/01/23 10:33 Labs: Lab Results 09/01/23 09/01/23 09/01/23 Range/Units 10:33 11:56 15:04 WBC 5.2 (4.8-10.8) X10*3/uL RBC 3.74 L (4.60-5.80) X10*6/uL Hgb 13.5 L (14.0-18.0) g/dl Hct 38.3 L (42.0-52.0) % MCV 102.4 H (80.0-98.0) fL MCH 36.1 H (27.0-33.0) pg MCHC 35.2 (31.0-36.0) g/dl RDW 15.1 (11.0-16.0) % Plt Count 81 L D (160-400) X10*3/uL MPV 10.3 (9.4-12.4) fL Immature Gran % (Auto) 0.2 (0.0-0.4) % Neut % (Auto) 48.9 (45-73) % Lymph % (Auto) 36.9 (20-40) % [place] % (Auto) 11.5 H (2-11) % Eos % (Auto) 1.9 (0-4) % Baso % (Auto) 0.6 (0-2) % Lymph # (Auto) 1.9 (1.2-4.9) X10*3/uL [place] # (Auto) 0.6 (0.1-1.2) X10*3/uL Eos # (Auto) 0.1 (0.0-0.4) X10*3/uL Baso # (Auto) 0.0 (0.0-0.2) X10*3/uL Abs Immat Gran (auto) 0.01 (0.00-0.03) X10*3/uL Absolute Neuts (auto) 2.5 (2.0-8.3) x10*3/uL Absolute Nucleated RBC 0.000 (0.0-0.012) X10*3/uL Nucleated RBC % (auto) 0.0 (0.0-0.2) /100WBC ESR 21 H (0-15) MM/HR Sodium 138 (135-145) mmol/L Potassium 3.3 (3.3-5.1) mmol/L Chloride 106 (96-108) mmol/L Carbon Dioxide 21 L (22-29) mmol/L Anion Gap 14 (12-20) BUN 4 L (9-16) mg/dL Creatinine 0.60 (0.5-1.4) mg/dL Estim Creat Clear Calc 188.9 Estimated GFR > 60 POC Glucose 86 (60-115) mg/dL Random Glucose 106 (60-115) mg/dL Calcium 8.2 L (8.4-10.2) mg/dL Total Bilirubin 1.6 H (0.0-1.0) mg/dL AST 88 H (5-37) U/L ALT 44 H (0-40) U/L Alkaline Phosphatase 128 H (39-117) U/L Troponin I High Sens 7.2 D (<3.5-35.0) ng/L Total Protein 7.4 (6.5-8.0) g/dL Albumin 3.0 L (3.5-5.0) g/dL Lipase 33 (8-78) U/L Urine Color Yellow Urine Appearance Clear Urine pH 7.0 (5.0-9.0) Ur Specific Bronson <= 1.005 (1.005-1.025) Urine Protein Negative (Neg-Trace) mg/dL Urine Glucose (UA) Negative (Negative) mg/dL Urine Ketones Negative (Negative) mg/dL Urine Blood Negative (Negative) Urine Nitrite Negative (Negative) Ur Leukocyte Esterase Negative (Negative) Urine Opiates Screen Not Detected (Not Detect) Ur Buprenorphine Scrn Not Detected (Not Detect) ng/mL Ur Oxycodone Screen Not Detected (Not Detect) ng/mL Urine Methadone Screen Not Detected (Not Detect) ng/mL Urine Fentanyl Screen Not Detected (Not Detect) Ur Barbiturates Screen Not Detected (Not Detect) Ur Phencyclidine Scrn Not Detected (Not Detect) Ur Amphetamines Screen Not Detected (Not Detect) U Benzodiazepines Scrn Not Detected (Not Detect) Urine Cocaine Screen POSITIVE H (Not Detect) U Marijuana (THC) Screen Not Detected (Not Detect) Influenza Type A (PCR) NEGATIVE (Negative) Influenza Type B (PCR) NEGATIVE (Negative) RSV RNA Qual (PCR) NEGATIVE (Negative) SARS-CoV-2 RNA (RT-PCR) NEGATIVE (Negative) Independent Interpretation I performed an independent interpretation of an: EKG, Rhythm Strip, Plain X-Ray and CT Scan Radiology Impression Discussion of test interpretation with radiology: I have reviewed the radiologist's reading. External Record Review External record reviewed: Inpatient record, Office record and Outpatient record Discharge Plan Discharge Clinical Impression: Dizziness, Paresthesia, Chest pain Patient Disposition: Home, Self-Care Instructions: Chest Pain (ED), Dizziness (ED), Paresthesia (ED) Additional Instructions: You seen today for headache chest pain and paresthesias. You had labs x-ray and a CT of your chest abdomen and pelvis which were all normal. Please call follow-up with . if you have any other concerns please return to emergency department. Prescriptions: No Action cholecalciferol (vitamin D3) 25 mcg (1,000 unit) capsule 25 mcg PO DAILY Qty: 90 2RF vitamin A palmitate 3,000 mcg (10,000 unit) capsule 3,000 mcg PO DAILY Qty: 90 2RF Orazinc 25 mg zinc (110 mg) tablet 25 mg PO DAILY Qty: 90 2RF tadalafil 20 mg tablet 20 mg PO ONCE PRN (Reason: sexual activity) 30 Days Qty: 30 0RF Rx Instructions: On demand medication take 60 minutes before intended activity acetaminophen [Tylenol Extra Strength] 500 mg tablet 500 mg PO Q6H PRN (Reason: pain or fever) Qty: 20 0RF montelukast 10 mg tablet 10 mg PO BEDTIME PRN prednisone 20 mg tablet 20 mg PO DAILY 7 Days Qty: 7 0RF benzonatate 100 mg capsule 100 mg PO BID PRN (Reason: cough) 7 Days Qty: 14 0RF ondansetron 4 mg tablet,disintegrating 4 mg PO Q8H PRN (Reason: nausea and vomiting) Qty: 20 0RF azithromycin 250 mg tablet See Rx Instructions .ROUTE .COMPLEX Qty: 6 0RF Rx Instructions: For 250 mg dose pack: take 500 mg today (day 1), then 250 mg for 4 days (days 2-5) prednisone 20 mg tablet 40 mg PO DAILY Qty: 10 0RF benzonatate 200 mg capsule 200 mg PO TID PRN (Reason: cough) Qty: 20 0RF albuterol sulfate 2.5 mg /3 mL (0.083 %) solution for nebulization 2.5 mg inhalation Q4-6H PRN (Reason: shortness of breath or wheezing) Qty: 75 0RF Dexilant 60 mg capsule,biphase delayed releas 60 mg PO DAILY (DME) pen needle, diabetic [Unifine Pentips] 32 gauge x 5/32 needle See Rx Instructions .ROUTE .MEDSUPPLY Qty: 50 Rx Instructions: As directed (DME) lancets [TRUEplus Lancets] 33 gauge misc See Rx Instructions .ROUTE .MEDSUPPLY Qty: 100 Rx Instructions: As directed Toujeo SoloStar U-300 Insulin 300 unit/mL (1.5 mL) insulin pen 20 unit subcut DAILY (DME) FreeStyle Lite Strips Strip See Rx Instructions Not Applicable QID Qty: 10 Rx Instructions: As directed tamsulosin 0.4 mg capsule 0.4 mg PO DAILY 90 Days Qty: 90 1RF tadalafil 10 mg tablet 10 mg PO DAILY 90 Days Qty: 90 1RF lidocaine [Lidoderm] 5 % adhesive patch,medicated 0 patch topical fluticasone propionate [Flovent HFA] 110 mcg/actuation HFA aerosol inhaler 1 puff PO BID fluticasone propionate 50 mcg/actuation spray,suspension 1 spray intranasal DAILY metoprolol succinate 50 mg tablet extended release 24 hr 50 mg PO QAM insulin aspart U-100 100 unit/mL (3 mL) insulin pen 10 unit subcut DIRECTED albuterol sulfate [ProAir HFA] 90 mcg/actuation HFA aerosol inhaler 2 puff inhalation Q4-6H PRN (Reason: dyspnea) cetirizine 10 mg tablet 10 mg PO BEDTIME chlorthalidone 25 mg tablet 12.5 mg PO QAM sodium,potassium,mag sulfates [Suprep Bowel Prep Kit] 17.5-3.13-1.6 gram recon soln See Rx Instructions PO .COMPLEX Qty: 354 0RF Rx Instructions: DILUTE; drink 1/2 at 6-8 pm and half at 11 PM- 1AM Print Language: Serbian
[2023-09-01 11:21] LABS: Influenza A PCR NEGATIVE (Negative); Influenza B PCR NEGATIVE (Negative); Resp Syncy Virus RNA Qual PCR NEGATIVE (Negative); SARS COV2 PCR INHOUSE NEGATIVE (Negative)
[2023-09-01 11:50] VITALS: PULSE 92; RESP 13; TEMP 36.6
[2023-09-01] MEDS: Morphine Sulfate 4 MG/ML CARTRIDGE IVPUSH (12:06)
[2023-09-01 12:07] LABS: Appearance Urine Clear; Color Urine Yellow; Glucose Urine UA Negative (Negative); Leukocyte Esterase Urine Negative (Negative); Nitrite Urine Negative (Negative); Specific Gravity - Urine <= 1.005 (1.005-1.025); Urine Blood Negative (Negative); Urine Ketones Negative (Negative); Urine Protein Negative (Neg-Trace)
[2023-09-01] MEDS: 0.9 % Sodium Chloride 1,000 ML 999 ML IV (12:09)
--- NOTE | 2023-09-01 12:09 | PC.NURSE ---
dilute 1ml of morphine 4mg with 9ml of NS to administer, administered 6ml of solution to pt when he began feeling nauseas, pt requested that this RN stop administering the rest of the solution, wasted the remainder of the solution in the trash. MD armstrong
[2023-09-01 12:11] VITALS: BP 132/69; PULSE 105; RESP 12; O2SAT 98
[2023-09-01 12:15] LABS: Lipase 33 U/L (8-78)
[2023-09-01 12:16] LABS: Amphetamine Screen Urine Not Detected (Not Detect); Barbiturates, Urine Not Detected (Not Detect); Benzodiazepines Screen Urine Not Detected (Not Detect); Buprenorphine Scr Not Detected (Not Detect); Cannabinoid Screen Urine Not Detected (Not Detect); Cocaine Screen Urine POSITIVE (Not Detect); Fentanyl, urine Not Detected (Not Detect); Methadone Screen, Urine Not Detected (Not Detect); Opiate Screen Urine Not Detected (Not Detect); Oxycodone Screen Urine Not Detected (Not Detect); Phencyclidine Screen Urine Not Detected (Not Detect)
[2023-09-01 12:29] LABS: Erythrocyte Sedimentation Rate 21 MM/HR (0-15)
[2023-09-01] MEDS: ondansetron HCL 4 MG/2 ML VIAL IVPUSH (12:35)
[2023-09-01] MEDS: iohexoL 350 MG/ML 100 ML INFUS..BTL IV (13:51)
[2023-09-01 14:26] VITALS: BP 130/70; PULSE 92; RESP 12; O2SAT 97
[2023-09-01 15:08] LABS: Glucose, Whole Blood 86 mg/dL (60-115)
[2023-09-01 15:48] VITALS: BP 130/70; PULSE 90; RESP 14; TEMP 36.6; O2SAT 97
== END 2023-09-01 15:53 | disposition home or self-care (01) ==
PROVIDERS: Emergency Provider Student in an Organized Health Care Education/Training Program; PCP Family Medicine
DX: R07.89 Other chest pain (principal); R20.2 Paresthesia of skin; I95.9 Hypotension, unspecified; R11.2 Nausea with vomiting, unspecified; F14.90 Cocaine use, unspecified, uncomplicated; E11.9 Type 2 diabetes mellitus without complications; Z79.4 Long term (current) use of insulin; R42 Dizziness and giddiness; Z79.899 Other long term (current) drug therapy; Z03.818 Encounter for observation for suspected exposure to other biological agents ruled out; F17.210 Nicotine dependence, cigarettes, uncomplicated
CPT/HCPCS: 0241U; 36415; 71046; 71275; 74174; 80053; 80307; 81003; 82947; 83690; 84484; 85025; 85652; 93005; 96361; 96374; 96375; 99284; 99285; J2270; J2405; Q9967

== ENCOUNTER → 2023-09-01 10:11 | Outpatient (BNV) | payer MEDICAID, SELFPAY | PROVIDERS: Emergency Provider Student in an Organized Health Care Education/Training Program; PCP Family Medicine; Visit Provider Internal Medicine Cardiovascular Disease | DX: R94.31 Abnormal electrocardiogram [ECG] [EKG] (principal) | CPT/HCPCS: 93010 ==

== ENCOUNTER 2023-09-16 13:02 | Outpatient (AMB) | payer MEDICAID, SELFPAY ==
--- NOTE | 2023-09-16 13:03 | MHC.OFFVIS ---
Intake Visit Reasons: 8M Follow Up-PSA/PVR/Med Review(Set) Intake Note: Patient is Present for Telephone Follow Up For Urology Med: Tamsulosin, Tadalafil Antibiotic Allergy:None Blood Thinner:None [employer] Required: Yes [employer] Language: Yi Allergies ranitidine [From ZANTAC] Allergy (Severe, Verified 09/16/23 13:05) DIFFICULTY BREATHING, ITCHING HPI Comments Details: Christian is a pleasant male. He is a patient of Dr. Cassidy. He seen for the following urologic conditions - erectile dysfunction with insulin-dependent diabetic - BPH Yi translation provided by qualified bilingual medical receptionist Telemedicine Evaluation 15 min Consultation [employer]oyo Video attempted Follow-up for lower urinary tract symptoms and ED Has been on daily 5 mg tadalafil - 10 mg on demand Erectile dysfunction - Diabetes insulin dependent Good response to 5 mg daily with 10 mg on demand Lower urinary tract symptoms Has been on Flomax with adequate response Still feeling he has hesitancy with urination Had seen blood in his urine needs ultrasound Family history prostate cancer PSA 11/05 0.3, 06/09 0.3 June review at periodic intervals [facility] Medical History Morbid obesity Gross hematuria Lipoma of neck On beta alma at home History of tachycardia Subcutaneous mass of neck Obesity Hx of gastritis History of anxiety History of depression COVID-19 Colitis Gallstones Asthma HTN (hypertension) Fatty liver Dysuria Arthritis Diabetes GERD (gastroesophageal reflux disease) OLIVER on CPAP Chronic back pain Cirrhosis Surgical History Hx of elbow surgery S/P cubital tunnel release History of esophagogastroduodenoscopy (EGD) History of left knee surgery Family History Father No problems noted. Mother HTN (hypertension) Sister Type II diabetes mellitus Social History Are you a primary primary care physician to a significant other at home: No Do you presently have visiting nurse or other home services: No Alcohol intake: current Alcohol intake frequency: holidays/special occasions only Alcohol type: beer Patient Tobacco Use Status: Current someday Tobacco user Tobacco use type: Cigarette Substance Use Type: Crack/Cocaine service: No Current occupational status: unemployed and disabled Review of Systems Const All systems reviewed & are unremarkable except as noted in HPI and below Reports no additional complaints Resp Reports no additional complaints GI Reports no additional complaints Reports as per HPI Musc Reports no additional complaints Physical Exam Telemedicine evaluation Appropriate responses Regular breathing rate and rhythm HEENT Head: Yes normal to inspection Ears: hearing grossly normal bilaterally Eyes General: appearance normal, both eyes and all related structures Neck Neck: Yes normal visual inspection Chest Chest palpation & inspection: normal inspection of the chest Resp Effort & Inspection: normal respiratory effort and able to speak in complete sentences Telehealth Telehealth Telehealth Platform: [employer] Location of provider rendering services: practice address Location of patient: address on file Patient Identification confirmed using: Name, : Yes Telehealth method: video Patient verbally consented to treatment: Yes Patient verbally consented to billing insurance company: Yes Patient informed of any privacy concerns related to visit: Yes Minutes spent on Phone/Video with Pt.: 15 Assessment & Plan Assessment & Plan (1) BPH w urinary obs/LUTS: Code(s): N40.1 - Benign prostatic hyperplasia with lower urinary tract symptoms; N13.8 - Other obstructive and reflux uropathy Category: Medical (2) Erectile dysfunction associated with type 2 diabetes mellitus: Code(s): E11.69 - Type 2 diabetes mellitus with other specified complication; N52.1 - Erectile dysfunction due to diseases classified elsewhere Category: Medical Plan Six month follow-up office Medications: Refilled tadalafil 10 mg PO DAILY 90 days 90 tabs 1RF sexual activity E11.69 - Type 2 diabetes mellitus with other specified complication, N52.1 - Erectile dysfunction due to diseases classified elsewhere tamsulosin 0.4 mg PO DAILY 90 days 90 caps 1RF tadalafil On demand medication take 60 minutes before intended activity 20 mg PO ONCE 30 days PRN 30 tabs 0RF sexual activity E11.69 - Type 2 diabetes mellitus with other specified complication, N52.1 - Erectile dysfunction due to diseases classified elsewhere Patient Instructions: Imaging studies, laboratory and physical exam results were discussed and reviewed in detail. No major barriers to patient understanding were identified. An opportunity to ask questions regarding the treatment plan was provided. All questions were answered. The patient expressed understanding and agreement with the above treatment plan. The patient is aware they should contact our office by phone for worsening of their current condition or the appearance of new urologic symptoms. Compliance is encouraged with any medications and followup testing that is ordered. It is a privilege to participate in the urologic care of your patient. If you have any questions or concerns regarding treatment for the above conditions, or other urologic issues, please do not hesitate to contact me. The office telephone contact is [phone]. This note is constructed using voice recognition software. While every effort has been made to ensure accuracy structural steel engineer errors may have been included. Yours sincerely, Dr Dao Keith MD, [facility] - Urology Providers of Expert, Compassionate Care for the Genitourinary System Coding Level of Care Code Tele Est Pt Level 3 (19640) Diagnoses BPH w urinary obs/LUTS N40.1; N13.8 Erectile dysfunction associated with type 2 diabetes mellitus E11.69; N52.1
== END 2023-09-16 13:27 | disposition home or self-care (01) ==
LOC: HO.HUSH 13:02
PROVIDERS: PCP Family Medicine; Referring Provider Family Medicine; Visit Provider Urology
DX: N40.1 Benign prostatic hyperplasia with lower urinary tract symptoms (principal); N13.8 Other obstructive and reflux uropathy; E11.69 Type 2 diabetes mellitus with other specified complication; N52.1 Erectile dysfunction due to diseases classified elsewhere
CPT/HCPCS: 99213

== ENCOUNTER → 2023-09-16 13:02 | Outpatient (BNVA) | payer MEDICAID, SELFPAY | PROVIDERS: PCP Family Medicine; Visit Provider Urology ==

== ENCOUNTER 2023-10-15 09:53 | Outpatient (REF) | payer MEDICAID, SELFPAY ==
[2023-10-15 11:10] LABS: MANUAL DIFF FLAG NO
[2023-10-15 11:23] LABS: Basophils Percent Auto 0.4 % (0-2); Eosinophils Absolute Auto 0.1 X10*3/uL (0.0-0.4); Eosinophils Percent Auto 2.8 % (0-4); Imm Gran Abs Auto 0.01 X10*3/uL (0.00-0.03); Imm Gran Pct Auto 0.2 % (0.0-0.4); Lymphocytes Absolute Auto 1.5 X10*3/uL (1.2-4.9); Lymphocytes Percent Auto 30.5 % (20-40); Mean Corpuscular Hemoglobin 35.7 pg (27.0-33.0); Mean Platelet Volume 11.1 fL (9.4-12.4); Monocytes Absolute Auto 0.5 X10*3/uL (0.1-1.2); Monocytes Percent Auto 10.5 % (2-11); Neutrophils Absolute Auto 2.8 x10*3/uL (2.0-8.3); Neutrophils Percent Auto 55.6 % (45-73); Red Blood Count 3.92 X10*6/uL (4.60-5.80); Red Cell Distribution Width 14.8 % (11.0-16.0); White Blood Count 5.1 X10*3/uL (4.8-10.8)
[2023-10-15 11:27] LABS: Platelet Count 86 X10*3/uL (160-400)
[2023-10-15 11:37] LABS: Estimated Average Glucose 103 mg/dL; Hemoglobin A1c % 5.2 % (<6.0)
[2023-10-15 11:55] LABS: Alanine Aminotransferase 37 U/L (0-40); Albumin Level 2.9 g/dL (3.5-5.0); Alkaline Phosphatase 127 U/L (39-117); Anion Gap 10 (12-20); Aspartate Amino Transferase 67 U/L (5-37); Blood Urea Nitrogen 7 mg/dL (9-16); Calcium 8.5 mg/dL (8.4-10.2); Carbon Dioxide 24 mmol/L (22-29); Chloride 109 mmol/L (96-108); Cholesterol 150 mg/dL (<200); Estimated Glomerular Filt Rate > 60; Glucose Random 107 mg/dL (60-115); HDL Cholesterol 54 mg/dL (>40); LDL Cholesterol Calculated 84 mg/dL (<100); Potassium 3.9 mmol/L (3.3-5.1); Sodium 139 mmol/L (135-145); Total Protein 7.5 g/dL (6.5-8.0); Triglycerides 61 mg/dL (<150)
[2023-10-15 12:06] LABS: Reflex LDLD? No
== END 2023-10-15 09:54 | disposition home or self-care (01) ==
LOC: HO.HHCL 09:53
PROVIDERS: Visit Provider Family Medicine
DX: E11.69 Type 2 diabetes mellitus with other specified complication (principal); K74.69 Other cirrhosis of liver; E78.5 Hyperlipidemia, unspecified; Z79.4 Long term (current) use of insulin
CPT/HCPCS: 36415; 80053; 80061; 83036; 85025

== ENCOUNTER 2024-01-07 11:18 | Outpatient (REF) | payer MEDICAID, SELFPAY ==
--- NOTE | ~2024-01-07 | XR_ITS ---
EXAMINATION: XR KNEE, RIGHT CLINICAL INFORMATION: worsening R knee pain COMPARISON: X-ray of the right knee April 2017. TECHNIQUE: Four views of the right knee. FINDINGS: There is chondrocalcinosis There is mild narrowing of the medial compartment indicative of mild osteoarthritis. Lateral compartment and patellofemoral compartment unremarkable. No effusion. XR/XR knee RT 3V IMPRESSION: Condyle calcinosis. Mild osteoarthritis Electronically signed by: David Poon MD 01/13/2024 11:41 AM JUDITH HERNANDEZ
[2024-01-07 12:05] LABS: Hematocrit 37.9 % (42.0-52.0); Mean Corpuscular HGB Conc 34.3 g/dl (31.0-36.0); Mean Corpuscular Hemoglobin 33.1 pg (27.0-33.0); Mean Corpuscular Volume 96.4 fL (80.0-98.0); Mean Platelet Volume 10.4 fL (9.4-12.4); Platelet Count 60 X10*3/uL (160-400); Red Blood Count 3.93 X10*6/uL (4.60-5.80); Red Cell Distribution Width 16.7 % (11.0-16.0); White Blood Count 3.5 X10*3/uL (4.8-10.8)
[2024-01-07 12:13] LABS: Estimated Average Glucose 108 mg/dL; Hemoglobin A1C 117.5884 umol/L; Hemoglobin A1c % 5.4 % (<6.0); Total Hemoglobin (HGBA1C) 3291.2324 umol/L
[2024-01-07 13:00] LABS: Alanine Aminotransferase 37 U/L (0-40); Albumin Level 2.9 g/dL (3.5-5.0); Alkaline Phosphatase 126 U/L (39-117); Anion Gap 9 (12-20); Aspartate Amino Transferase 84 U/L (5-37); Bilirubin Direct 0.7 mg/dL (0.0-0.5); Bilirubin Total 1.9 mg/dL (0.0-1.0); Blood Urea Nitrogen 7 mg/dL (9-16); Calcium 8.6 mg/dL (8.4-10.2); Carbon Dioxide 25 mmol/L (22-29); Chloride 108 mmol/L (96-108); Cholesterol 150 mg/dL (<200); Estimated Glomerular Filt Rate > 60; Glucose Random 146 mg/dL (60-115); HDL Cholesterol 51 mg/dL (>40); LDL Cholesterol Calculated 85 mg/dL (<100); Potassium 3.7 mmol/L (3.3-5.1); Sodium 138 mmol/L (135-145); Total Protein 7.5 g/dL (6.5-8.0); Triglycerides 74 mg/dL (<150)
[2024-01-07 13:06] LABS: Free T4 (Free Thyroxine) 0.82 ng/dL (0.71-1.85); Thyroid Stimulating Hormone 1.47 uIU/mL (0.32-4.0); Vitamin D 25-OH Total 20.7 ng/mL (>30)
[2024-01-07 13:15] LABS: Creatinine Urine 374.76 mg/dL
[2024-01-07 13:15] LABS: HBS Num1 8.46 mIU/mL (0-7.99); HBsAGNum1 0.41 S/CO (0.00-0.99); HIV AB/AG Nonreactive (Nonreactive); HIV Num 1 0.06 S/CO (0.00-0.99); Hepatitis B Surface Antigen Negative (Negative); ~HepC Num1 0.23 S/CO (0.00-0.79); ~Hepatitis C Antibody Nonreactive (Nonreactive)
[2024-01-07 18:13] LABS: CT PCR NOT DETECTED (Not Detect.); NG PCR NOT DETECTED (Not Detect.)
[2024-01-08 08:36] LABS: HBS Num2 9.03 mIU/mL (0-7.99); HBS Num3 9.25 mIU/mL (0-7.99); ~Hepatitis B Surface Antibody GRAYZONE (Nonreactive)
[2024-01-11 18:03] LABS: RPR Rapid Plasma Reagin NON-REACTIVE (NON-REACTIVE)
== END 2024-01-07 11:19 | disposition home or self-care (01) ==
LOC: HO.XRAY 11:18
PROVIDERS: PCP Family Medicine; Visit Provider Family Medicine
DX: E11.69 Type 2 diabetes mellitus with other specified complication (principal); Z79.4 Long term (current) use of insulin; M25.561 Pain in right knee; G89.29 Other chronic pain
CPT/HCPCS: 73562; 80048; 80061; 80076; 82043; 82306; 82570; 83036; 84439; 84443; 85027; 86592; 86706; 86803; 87340; 87389; 87491; 87591

== ENCOUNTER 2024-03-03 12:27 | Outpatient (REF) | payer MEDICAID, SELFPAY | END 2024-03-03 12:28 | disposition home or self-care (01) | LOC: HO.HOSX 12:27 | PROVIDERS: Visit Provider Orthopaedic Surgery | DX: Z13.89 Encounter for screening for other disorder (principal) ==

== ENCOUNTER 2024-03-18 11:58 | Outpatient (AMB) | payer MEDICAID, SELFPAY ==
--- NOTE | 2024-03-18 12:01 | A.OFFVIS_ITS ---
Intake Visit Reasons: 6m follow up Intake Note: Patient is present for 6M F/U Urology Medication:TADALALFIL,TAMSULOSIN Antibiotic Allergy:NONE Blood Thinner:NONE Geographic Information Systems Engineer Required: No Allergies ranitidine [From ZANTAC] Allergy (Severe, Verified 03/18/24 12:03) DIFFICULTY BREATHING, ITCHING HPI Comments Details: Christian is a pleasant male. He is a patient of Dr. Cassidy. He seen for the following urologic conditions - erectile dysfunction with insulin-dependent diabetic - BPH Uzbek translation provided by qualified clinical specialist medical device Six-month follow-up Refill tadalafil Confirmed 20 mg on demand with 10 mg daily Continue tamsulosin for urinary symptoms Check PSA and testosterone level Erectile dysfunction - Diabetes insulin dependent Currently 10 mg daily with 20 on demand Lower urinary tract symptoms Has been on Flomax with adequate response Still feeling he has hesitancy with urination Had seen blood in his urine needs ultrasound Family history prostate cancer PSA 11/05 0.3, 06/09 0.3 June review at periodic intervals PFSH Medical History Morbid obesity Gross hematuria Lipoma of neck On beta alma at home History of tachycardia Subcutaneous mass of neck Obesity Hx of gastritis History of anxiety History of depression COVID-19 Colitis Gallstones Asthma HTN (hypertension) Fatty liver Dysuria Arthritis Diabetes GERD (gastroesophageal reflux disease) OLIVER on CPAP Chronic back pain Cirrhosis Surgical History Hx of elbow surgery S/P cubital tunnel release History of esophagogastroduodenoscopy (EGD) History of left knee surgery Family History Father No problems noted. Mother HTN (hypertension) Sister Type II diabetes mellitus Social History Are you a primary menagerie caretaker to a significant other at home: No Do you presently have visiting nurse or other home services: No Alcohol intake: current Alcohol intake frequency: holidays/special occasions only Alcohol type: beer Patient Tobacco Use Status: Current someday Tobacco user Tobacco use type: Cigarette Substance Use Type: Crack/Cocaine service: No Current occupational status: unemployed and disabled Review of Systems Const Denies chills and Denies fever(s) Card Reports no additional complaints and Denies syncope Resp Denies cough GI Denies abdominal pain and Denies heartburn Reports as per HPI and Denies change in libido Neuro Denies syncope Psych Denies change in libido Endo Denies change in libido Physical Exam Const General: cooperative, healthy appearing, comfortable and no acute distress Orientation/consciousness: patient oriented x3 HEENT Face and sinus: Yes normal facial exam Mouth: moist mucous membranes Neck Neck: Yes normal visual inspection, Yes full ROM and Yes trachea midline Chest Chest palpation & inspection: normal inspection of the chest Resp Effort & Inspection: normal respiratory effort, able to speak in complete sentences and no respiratory distress GI Inspection: Yes normal to inspection Back/Spine/Pelvis Cervical Spine: normal cervical lordosis Thoracic/Lumbar Spine: thoracic and lumbar spine normal to inspection Skin General skin exam: no rashes or lesions noted Neuro General: patient oriented x3, gait normal, tone normal and moves all extremities Extrem General: Yes normal to inspection and Yes capillary refill normal Assessment & Plan Assessment & Plan (1) BPH w urinary obs/LUTS: Code(s): N40.1 - Benign prostatic hyperplasia with lower urinary tract symptoms; N13.8 - Other obstructive and reflux uropathy Category: Medical (2) Erectile dysfunction associated with type 2 diabetes mellitus: Code(s): E11.69 - Type 2 diabetes mellitus with other specified complication; N52.1 - Erectile dysfunction due to diseases classified elsewhere Category: Medical Plan Refill medications new line six-month follow-up lab work Orders: Orders Prostate Specific Antigen 6 Months N13.8 - Other obstructive and reflux uropathy, N40.1 - Benign prostatic hyperplasia with lower urinary tract symptoms Testosterone, Total 6 Months N13.8 - Other obstructive and reflux uropathy, N40.1 - Benign prostatic hyperplasia with lower urinary tract symptoms Patient Instructions: Imaging studies, laboratory and physical exam results were discussed and reviewed in detail. No major barriers to patient understanding were identified. An opportunity to ask questions regarding the treatment plan was provided. All questions were answered. The patient expressed understanding and agreement with the above treatment plan. The patient is aware they should contact our office by phone for worsening of their current condition or the appearance of new urologic symptoms. Compliance is encouraged with any medications and followup testing that is ordered. It is a privilege to participate in the urologic care of your patient. If you have any questions or concerns regarding treatment for the above conditions, or other urologic issues, please do not hesitate to contact me. The office telephone contact is [phone]. This note is constructed using voice recognition software. While every effort has been made to ensure accuracy telecommunications operator errors may have been included. Yours sincerely, Dr Dao Keith MD, [facility] - Urology Providers of Expert, Compassionate Care for the Genitourinary System Coding Level of Care Code Est Pt Level 4 (42595) Diagnoses BPH w urinary obs/LUTS N40.1; N13.8 Erectile dysfunction associated with type 2 diabetes mellitus E11.69; N52.1
== END 2024-03-18 12:28 | disposition home or self-care (01) ==
PROVIDERS: PCP Family Medicine; Visit Provider Urology
DX: N40.1 Benign prostatic hyperplasia with lower urinary tract symptoms (principal); N13.8 Other obstructive and reflux uropathy; E11.69 Type 2 diabetes mellitus with other specified complication; N52.1 Erectile dysfunction due to diseases classified elsewhere
CPT/HCPCS: 99214

== ENCOUNTER → 2024-03-18 11:58 | Outpatient (BNVA) | payer MEDICAID, SELFPAY | PROVIDERS: PCP Family Medicine; Visit Provider Urology | DX: N40.1 Benign prostatic hyperplasia with lower urinary tract symptoms (principal); N13.8 Other obstructive and reflux uropathy; E11.69 Type 2 diabetes mellitus with other specified complication; N52.1 Erectile dysfunction due to diseases classified elsewhere; Z79.4 Long term (current) use of insulin | CPT/HCPCS: 99212 ==

== ENCOUNTER 2024-04-25 13:43 | Inpatient (IN) | payer MEDICAID, SELFPAY ==
[2024-04-25] VITALS (8 sets, daily range): BP systolic 139–148; BP diastolic 77–91; PULSE 84–120; RESP 10–20; TEMP 36.8–37; O2SAT 97–100; BMI 35.2
--- NOTE | ~2024-04-25 | CT_ITS ---
CLINICAL HISTORY: GI bleed, hx cirrhosis Abdomen and pelvics CT with and without contrast (GI bleed ). Comparison: CT/IN/SR - CT ABDOMEN PELVIS W IV CON - 04/16/23 10:31 EST Findings: Cirrhotic appearing atrophic liver with nodular contour. Moderate gastrohepatic varices are noted. Splenomegaly. Remainder of the solid organs are unremarkable. Bowel loops are nondilated. No hyperdense material or air-fluid levels noted within the small or large bowel loops. Moderate mesenteric stranding. No abdominal pelvic free fluid or free air. Pelvic structures are intact. Moderate to severe multilevel spondylosis of the visualized thoracolumbar spine with slightly exaggerated thoracic kyphosis. Impression: 1. No evidence of active GI bleed. 2. Hepatic cirrhosis with moderate gastrohepatic varices and splenomegaly. Moderate mesenteric stranding. No significant ascites. This document has been electronically signed by: Melissa Segovia MD on 04/25/2024 20:29:54
--- NOTE | ~2024-04-25 | XR_ITS ---
EXAMINATION: XR CHEST CLINICAL INFORMATION: SOB +covid COMPARISON: 09/01/2023. TECHNIQUE: 2 views of the chest were obtained. FINDINGS: The cardiac, hilar, and mediastinal contours are normal. The lungs are clear bilaterally. Mildly low lung volumes. There is no pneumothorax or pleural effusion. There is no focal osseous or soft tissue abnormality. Mild spinal degenerative changes. XR/XR chest 2V IMPRESSION: No active pulmonary disease. Electronically signed by: Long Trujillo MD 04/25/2024 02:26 PM EDT
--- NOTE | 2024-04-25 13:57 | ED_ITS ---
HPI - Asthma General Chief Complaint: Upper Respiratory Symptoms Stated Complaint: covid diff breathing Time Seen by Provider: 04/25/24 16:05 Source: patient Mode of arrival: ambulatory Limitations: no limitations History of Present Illness ED Provider: Dr. April Rodriguez HPI Narrative: Patient comes to the emergency room complaining of URI symptoms. However, patient's main concern is that starting yesterday he has been vomiting blood. Patient has also been having black diarrhea. 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 Patient did a home test which was negative. However, patient is not feeling well. Patient states that he has been very nauseous, vomiting and he has been seeing blood clots. Patient denies abdominal pain. However, patient states that he is known to have cirrhosis, patient believes it is secondary to WEBBER, denies any history of alcoholism. Also, patient complaining of right-sided flank pain for several days. Denies hematuria or dysuria. Patient denies fever chills, denies chest pain. Related Data Home Medications ?Medication ?Instructions ?Recorded ?Confirmed dexlansoprazole 60 mg 60 mg PO DAILY 11/15/19 03/17/22 capsule,biphase delayed release (Dexilant) lancets 33 gauge (TRUEplus Lancets) #100 ea 11/15/19 03/17/22 pen needle, diabetic 32 gauge x #50 ea 11/15/19 03/17/22 5/32 (Unifine Pentips) blood sugar diagnostic (FreeStyle #10 ea 05/03/21 03/17/22 Lite Strips) insulin glargine U-300 conc 300 20 unit subcut DAILY 05/03/21 03/17/22 unit/mL (1.5 mL) subcutaneous pen (Toujeo SoloStar U-300 Insulin) albuterol sulfate 90 mcg/actuation 2 puff inhalation Q4-6H PRN dyspnea 08/09/21 03/17/22 aerosol inhaler (ProAir HFA) cetirizine 10 mg tablet 10 mg PO BEDTIME 08/09/21 03/17/22 fluticasone propionate 110 1 puff PO BID 08/09/21 03/17/22 mcg/actuation HFA aerosol inhaler (Flovent HFA) fluticasone propionate 50 1 spray intranasal DAILY 08/09/21 03/17/22 mcg/actuation nasal spray,suspension insulin aspart U-100 100 unit/mL 10 unit subcut DIRECTED 08/09/21 03/17/22 (3 mL) subcutaneous pen lidocaine 5 % topical patch 0 patch topical 08/09/21 03/17/22 (Lidoderm) metoprolol succinate 50 mg 50 mg PO QAM 08/09/21 03/17/22 tablet,extended release 24 hr montelukast 10 mg tablet 10 mg PO BEDTIME PRN 03/17/22 03/17/22 chlorthalidone 25 mg tablet 12.5 mg PO QAM 11/17/22 Previous Rx's ?Medication ?Instructions ?Recorded acetaminophen 500 mg tablet 500 mg PO Q6H PRN pain or fever 12/24/19 (Tylenol Extra Strength) #20 tabs cholecalciferol (vitamin D3) 25 25 mcg PO DAILY #90 caps 11/27/22 mcg (1,000 unit) capsule zinc sulfate 25 mg zinc (110 mg) 25 mg PO DAILY #90 tabs 01/14/23 tablet (Orazinc) benzonatate 100 mg capsule 100 mg PO BID PRN cough 7 days #14 01/28/23 caps prednisone 20 mg tablet 20 mg PO DAILY 7 days #7 tabs 01/28/23 albuterol sulfate 2.5 mg/3 mL 2.5 mg (3 mL) inhalation Q4-6H PRN 03/05/23 (0.083 %) solution for nebulization shortness of breath or wheezing #75 mL azithromycin 250 mg tablet See Rx Instructions PO .COMPLEX #6 03/05/23 tabs benzonatate 200 mg capsule 200 mg PO TID PRN cough #20 caps 03/05/23 prednisone 20 mg tablet 40 mg (2 x 20 mg) PO DAILY #10 tabs 03/05/23 sodium,potassium,mag sulfates 17.5 See Rx Instructions PO .COMPLEX 03/23/23 gram-3.13 gram-1.6 gram oral soln #354 mL (Suprep Bowel Prep Kit) ondansetron 4 mg disintegrating 4 mg PO Q8H PRN nausea and 04/16/23 tablet vomiting #20 tabs vitamin A 3,000 mcg (10,000 unit) 1 cap PO QAM #90 caps 02/05/24 capsule tadalafil 10 mg tablet 10 mg PO DAILY sexual activity 90 03/18/24 days #90 tabs tadalafil 20 mg tablet 20 mg PO ONCE PRN sexual activity 03/18/24 30 days #30 tabs tamsulosin 0.4 mg capsule 0.4 mg PO DAILY 90 days #90 caps 03/18/24 Allergies Allergy/AdvReac Type Severity Reaction Status Date / Time ranitidine [From ZANTAC] Allergy Severe DIFFICULTY Verified 04/25/24 14:01 BREATHING, ITCHING Review of Systems 2 Review of Systems: Constitutional : No Weight loss, No Fever, No Chills, No Night Sweats, No Fatigue, No Malaise ENT/Mouth : No Hearing loss, No Ear Pain, No Nasal Congestion, No Sinus Pain, No Hoarseness, No sore throat, No Rhinorrhea, No Swallowing Difficulty Eyes: No Eye Pain, No Swelling, No Redness, No Foreign Body, No Discharge, No Vision Changes Cardiovascular : No Chest Pain, No SOB, No Dyspnea on Exertion, No Orthopnea, No Edema, No Palpitations Respiratory : Complaining of cough with sputum, No Wheezing, No Smoke Exposure, No Dyspnea Gastrointestinal : Complaining of cough with hematemesis, No Diarrhea with black stool, No Constipation, No abdominal Pain Genitourinary : no irregular bleeding, No Dysuria, No Urinary Frequency, No Hematuria, No Urinary Incontinence, No Urgency, complaining of right-sided Flank Pain, No Urinary Flow Changes, No Hesitancy Musculoskeletal : No joint pain, No Myalgias, No Joint Swelling Skin : No Skin Lesions, No rash Neuro : No Weakness, No Numbness, No Paresthesias, No Loss of Consciousness, No Dizziness, No Headache Psych : No Anxiety/Panic, No Depression, No SI/HI/AH/VH, No Social Issues, Heme/Lymph: No Bruising, No Bleeding,No Lymphadenopathy Endocrine : No Polyuria, No Polydipsia, No Temperature Intolerance PMFSH Past Medical History Medical History Morbid obesity Gross hematuria Lipoma of neck On beta alma at home History of tachycardia Subcutaneous mass of neck Obesity Hx of gastritis History of anxiety History of depression COVID-19 Colitis Gallstones Asthma HTN (hypertension) Fatty liver Dysuria Arthritis Diabetes GERD (gastroesophageal reflux disease) OLIVER on CPAP Chronic back pain Cirrhosis Surgical History Hx of elbow surgery S/P cubital tunnel release History of esophagogastroduodenoscopy (EGD) History of left knee surgery Family History Family History Father No problems noted. Mother HTN (hypertension) Sister Type II diabetes mellitus Social History Social History Are you a primary acute care occupational therapist to a significant other at home: No Do you presently have visiting nurse or other home services: No Alcohol intake: current Alcohol intake frequency: holidays/special occasions only Alcohol type: beer Patient Tobacco Use Status: Current someday Tobacco user Tobacco use type: Cigarette Smoked in Last 30 Days: Yes Use of substances other than those prescribed or required for medical reasons: No Substance Use Type: Crack/Cocaine Advance Directives: No Advance Directives Information Provided: No Do you have a plan to hurt others: No Plan service: No Current occupational status: unemployed and disabled Physical Exam 2 Vital Signs: Vital Signs: Last Vital Signs Temp 98.6 F 04/25/24 20:11 Pulse 87 04/25/24 20:11 Resp 18 04/25/24 20:11 BP 139/82 04/25/24 20:11 Pulse Ox 98 04/25/24 20:11 O2 Del Method Room Air 04/25/24 20:11 BMI result Body Mass Index 35.2 Const: Other: Appearance: Alert. Oriented X3. No acute distress. Eyes: Pupils equal, round and reactive to light. ENT: Pharynx normal. Neck: Normal inspection. Neck supple. No lymph nodes noted. No crepitus CVS: Normal heart rate and rhythm. Pulses normal. Normal S1 and S2 Respiratory: No respiratory distress. Breath sounds normal. No Wheezing. No rales Abdomen: Soft and nontender. No rigidity. No distention. Patient has an emesis bag next to him with small blood clots Skin: Skin warm and dry. Normal skin color. Normal skin turgor. Extremities: No lower extremity edema. No Lacerations. No Rash Neuro: Oriented X 3. No motor deficit. No sensory deficit. Moving all extremities. No slurred speech. CN 2 through 12 grossly intact Psych: calm, cooperative, normal affect Course Course Course Narrative: This is a Rapid Medical Examination (RME) performed by Carine Harper PA-C in triage. Full HPI, ROS, assessment and treatment plan per primary provider in the Main ED. 49 yo male hx asthma, GERD, OLIVER on CPAP, BPH, HTN, DM here for eval of cough, SOB, fever, body aches, and dark loose stools x2 days. +covid test at home. + breath sounds diminished Plan: labs, ekg, viral swabs Medications Administered Discontinued Medications Generic Name Dose Route Start Last Admin Trade Name Freq PRN Reason Stop Dose Admin Albuterol/Ipratropium 3 ml 04/25/24 16:08 04/25/24 16:21 Albuterol/Iprat 2.5/0.5mg 3 Ml Ampul.Neb INHALE 04/25/24 16:09 3 ml ONCE ONE Administration Lactated Ringer's 1,000 mls @ 999 mls/hr 04/25/24 16:45 04/25/24 19:58 Lr IV 04/25/24 17:45 Infused .Q1H1M BRYANNA Infusion Iohexol 100 ml 04/25/24 18:59 04/25/24 18:59 Iohexol 350 Mg/Ml 100 Ml Infus..Btl IV 04/25/24 19:00 80 ml ONCE ONE Administration Ondansetron HCl 4 mg 04/25/24 16:45 04/25/24 18:18 Ondansetron Hcl 4 Mg/2 Ml Vial IVPUSH 04/25/24 16:46 4 mg ONCE ONE Administration Pantoprazole Sodium 80 mg 04/25/24 16:45 04/25/24 18:15 Pantoprazole Sodium 40 Mg/10 Ml Vial IVPUSH 04/25/24 16:46 80 mg ONCE ONE Administration Medical Decision Making Medical Decision Making MDM Narrative: My interpretation of labs: Patient's white blood cell count 5.1. Hemoglobin and hematocrit at baseline, platelets 66 which is chronic for the patient and at baseline. Patient's chemistry is at baseline, no significant abnormality. Patient's LFTs chronically elevated and at baseline, T bili 1.8, AST 109, ALT 46, alk phos 130 patient's INR stable at 1.4. Urinalysis negative for UTI, upper GI and lower GI occult blood was heme positive Orthostatic vitals were negative Chest x-ray does not show any acute abnormalities. No infiltrates Serology test negative for influenza COVID and RSV. 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 Patient states it has been ?a very long time? since he had an endoscopy done. Patient receiving IV fluids, Protonix, Zofran, octreotide and ceftriaxone. I discussed the above-mentioned with Dr. Bernal from the Medicine team, patient being admitted, patient agrees with plan Differential Diagnosis Differential Diagnoses: The differential diagnosis associated with the presentation includes (Upper GI bleed, lower GI bleed, COVID, cirrhosis) Admission/Observation Consideration of admission/observation: Escalation of care including admission/observation considered Consult Healthcare Provider Management of the patient was discussed with: Hospitalist Lab Data MDM Lab Attestation statement: I reviewed the patient's lab results. 04/25/24 14:27 04/25/24 14:27 Labs: Lab Results 04/25/24 04/25/24 04/25/24 Range/Units 14:27 17:14 18:48 WBC 5.1 (4.8-10.8) X10*3/uL RBC 3.69 L (4.60-5.80) X10*6/uL Hgb 13.3 L (14.0-18.0) g/dl Hct 37.5 L (42.0-52.0) % MCV 101.6 H (80.0-98.0) fL MCH 36.0 H (27.0-33.0) pg MCHC 35.5 (31.0-36.0) g/dl RDW 16.3 H (11.0-16.0) % Plt Count 66 L (160-400) X10*3/uL MPV 11.7 (9.4-12.4) fL Immature Gran % (Auto) 0.2 (0.0-0.4) % Neut % (Auto) 56.2 (45-73) % Lymph % (Auto) 31.8 (20-40) % Luna % (Auto) 9.6 (2-11) % Eos % (Auto) 1.8 (0-4) % Baso % (Auto) 0.4 (0-2) % Lymph # (Auto) 1.6 (1.2-4.9) X10*3/uL Luna # (Auto) 0.5 (0.1-1.2) X10*3/uL Eos # (Auto) 0.1 (0.0-0.4) X10*3/uL Baso # (Auto) 0.0 (0.0-0.2) X10*3/uL Abs Immat Gran (auto) 0.01 (0.00-0.03) X10*3/uL Absolute Neuts (auto) 2.9 (2.0-8.3) x10*3/uL Absolute Nucleated RBC 0.000 (0.0-0.012) X10*3/uL Nucleated RBC % (auto) 0.0 (0.0-0.2) /100WBC PT 16.4 H (10.9-12.4) SEC INR 1.4 H (0.9-1.1) Sodium 143 (135-145) mmol/L Potassium 4.0 (3.3-5.1) mmol/L Chloride 115 H (96-108) mmol/L Carbon Dioxide 23 (22-29) mmol/L Anion Gap 9 L (12-20) BUN 8 L (9-16) mg/dL Creatinine 0.52 (0.5-1.4) mg/dL Estim Creat Clear Calc 210.3 Estimated GFR > 60 Random Glucose 149 H (60-115) mg/dL Calcium 8.1 L (8.4-10.2) mg/dL Magnesium 1.8 (1.6-2.6) mg/dL Total Bilirubin 1.8 H (0.0-1.0) mg/dL AST 109 H (5-37) U/L ALT 46 H (0-40) U/L Alkaline Phosphatase 130 H (39-117) U/L Troponin I High Sens 2.8 D (<3.5-35.0) ng/L Total Protein 7.9 (6.5-8.0) g/dL Albumin 2.9 L (3.5-5.0) g/dL Urine Color Dark Yellow Urine Appearance Clear Urine pH 7.5 (5.0-9.0) Ur Specific [place] 1.020 (1.005-1.025) Urine Protein Negative (Neg-Trace) mg/dL Urine Glucose (UA) Negative (Negative) mg/dL Urine Ketones Trace (Negative) mg/dL Urine Blood Negative (Negative) Urine Nitrite Negative (Negative) Ur Leukocyte Esterase Negative (Negative) Gastric Occult Blood POSITIVE (NEG) Stool Occult Blood POSITIVE (NEGATIVE) Influenza Type A (PCR) NEGATIVE (Negative) Influenza Type B (PCR) NEGATIVE (Negative) RSV RNA Qual (PCR) NEGATIVE (Negative) SARS-CoV-2 RNA (RT-PCR) NEGATIVE (Negative) Independent Interpretation I performed an independent interpretation of an: CT Scan Radiology Impression Discussion of test interpretation with radiology: I have reviewed the radiologist's reading. Radiologist Impression: Findings: Cirrhotic appearing atrophic liver with nodular contour. Moderate gastrohepatic varices are noted. Splenomegaly. Remainder of the solid organs are unremarkable. Bowel loops are nondilated. No hyperdense material or air-fluid levels noted within the small or large bowel loops. Moderate mesenteric stranding. No abdominal pelvic free fluid or free air. Pelvic structures are intact. Moderate to severe multilevel spondylosis of the visualized thoracolumbar spine with slightly exaggerated thoracic kyphosis. Impression: 1. No evidence of active GI bleed. 2. Hepatic cirrhosis with moderate gastrohepatic varices and splenomegaly. Moderate mesenteric stranding. No significant ascites. Critical Care Time Critical Care Time Critical Care Time: Yes Total Critical Care Time: 75 Attestation: I have personally provided critical care time. Time includes review of lab data, radiology results, discussion with consultants, and monitoring for potential decompensation. Intervention performed as documented. Discharge Plan Discharge Clinical Impression: Acute GI bleeding, URI, acute Patient Disposition: Admitted As Inpatient Prescriptions: No Action cholecalciferol (vitamin D3) 25 mcg (1,000 unit) capsule 25 mcg PO DAILY Qty: 90 2RF Orazinc 25 mg zinc (110 mg) tablet 25 mg PO DAILY Qty: 90 2RF vitamin A 3,000 mcg (10,000 unit) capsule 1 cap PO QAM Qty: 90 2RF tadalafil 20 mg tablet 20 mg PO ONCE PRN (Reason: sexual activity) 30 Days Qty: 30 1RF Rx Instructions: On demand medication take 60 minutes before intended activity acetaminophen [Tylenol Extra Strength] 500 mg tablet 500 mg PO Q6H PRN (Reason: pain or fever) Qty: 20 0RF montelukast 10 mg tablet 10 mg PO BEDTIME PRN prednisone 20 mg tablet 20 mg PO DAILY 7 Days Qty: 7 0RF benzonatate 100 mg capsule 100 mg PO BID PRN (Reason: cough) 7 Days Qty: 14 0RF ondansetron 4 mg tablet,disintegrating 4 mg PO Q8H PRN (Reason: nausea and vomiting) Qty: 20 0RF azithromycin 250 mg tablet See Rx Instructions .ROUTE .COMPLEX Qty: 6 0RF Rx Instructions: For 250 mg dose pack: take 500 mg today (day 1), then 250 mg for 4 days (days 2-5) prednisone 20 mg tablet 40 mg PO DAILY Qty: 10 0RF benzonatate 200 mg capsule 200 mg PO TID PRN (Reason: cough) Qty: 20 0RF albuterol sulfate 2.5 mg /3 mL (0.083 %) solution for nebulization 2.5 mg inhalation Q4-6H PRN (Reason: shortness of breath or wheezing) Qty: 75 0RF Dexilant 60 mg capsule,biphase delayed releas 60 mg PO DAILY (DME) pen needle, diabetic [Unifine Pentips] 32 gauge x 5/32 needle See Rx Instructions .ROUTE .MEDSUPPLY Qty: 50 Rx Instructions: As directed (DME) lancets [TRUEplus Lancets] 33 gauge misc See Rx Instructions .ROUTE .MEDSUPPLY Qty: 100 Rx Instructions: As directed Toujeo SoloStar U-300 Insulin 300 unit/mL (1.5 mL) insulin pen 20 unit subcut DAILY (DME) FreeStyle Lite Strips Strip See Rx Instructions Not Applicable QID Qty: 10 Rx Instructions: As directed lidocaine [Lidoderm] 5 % adhesive patch,medicated 0 patch topical fluticasone propionate [Flovent HFA] 110 mcg/actuation HFA aerosol inhaler 1 puff PO BID fluticasone propionate 50 mcg/actuation spray,suspension 1 spray intranasal DAILY metoprolol succinate 50 mg tablet extended release 24 hr 50 mg PO QAM insulin aspart U-100 100 unit/mL (3 mL) insulin pen 10 unit subcut DIRECTED albuterol sulfate [ProAir HFA] 90 mcg/actuation HFA aerosol inhaler 2 puff inhalation Q4-6H PRN (Reason: dyspnea) cetirizine 10 mg tablet 10 mg PO BEDTIME chlorthalidone 25 mg tablet 12.5 mg PO QAM sodium,potassium,mag sulfates [Suprep Bowel Prep Kit] 17.5-3.13-1.6 gram recon soln See Rx Instructions PO .COMPLEX Qty: 354 0RF Rx Instructions: DILUTE; drink 1/2 at 6-8 pm and half at 11 PM- 1AM tadalafil 10 mg tablet 10 mg PO DAILY 90 Days Qty: 90 1RF tamsulosin 0.4 mg capsule 0.4 mg PO DAILY 90 Days Qty: 90 1RF Print Language: Slovak
--- NOTE | 2024-04-25 14:01 | ECG_ITS ---
Test Reason : SOB Blood Pressure : */* mmHG Vent. Rate : 98 BPM Atrial Rate : 98 BPM P-R Int : 146 ms QRS Dur : 82 ms QT Int : 374 ms P-R-T Axes : 44 0 14 degrees QTcB Int : 477 ms Normal sinus rhythm Normal ECG When compared with ECG of 01-Sep-2023 10:20, No significant change was found Referred By: Jeanine Harper Electronically Signed By: TEA PERSAUD
[2024-04-25 14:30] LABS: MANUAL DIFF FLAG NO
[2024-04-25 14:32] LABS: Basophils Percent Auto 0.4 % (0-2); Eosinophils Absolute Auto 0.1 X10*3/uL (0.0-0.4); Eosinophils Percent Auto 1.8 % (0-4); Hematocrit 37.5 % (42.0-52.0); Hemoglobin 13.3 g/dl (14.0-18.0); Imm Gran Abs Auto 0.01 X10*3/uL (0.00-0.03); Imm Gran Pct Auto 0.2 % (0.0-0.4); Lymphocytes Absolute Auto 1.6 X10*3/uL (1.2-4.9); Lymphocytes Percent Auto 31.8 % (20-40); Mean Corpuscular HGB Conc 35.5 g/dl (31.0-36.0); Mean Corpuscular Volume 101.6 fL (80.0-98.0); Mean Platelet Volume 11.7 fL (9.4-12.4); Monocytes Absolute Auto 0.5 X10*3/uL (0.1-1.2); Monocytes Percent Auto 9.6 % (2-11); Neutrophils Absolute Auto 2.9 x10*3/uL (2.0-8.3); Neutrophils Percent Auto 56.2 % (45-73); Red Blood Count 3.69 X10*6/uL (4.60-5.80); Red Cell Distribution Width 16.3 % (11.0-16.0); White Blood Count 5.1 X10*3/uL (4.8-10.8)
[2024-04-25 14:45] LABS: Platelet Count 66 X10*3/uL (160-400)
[2024-04-25 15:01] LABS: Troponin-I High Sensitivity 2.8 ng/L (<3.5-35.0)
[2024-04-25 15:06] LABS: Alanine Aminotransferase 46 U/L (0-40); Albumin Level 2.9 g/dL (3.5-5.0); Alkaline Phosphatase 130 U/L (39-117); Anion Gap 9 (12-20); Aspartate Amino Transferase 109 U/L (5-37); Bilirubin Total 1.8 mg/dL (0.0-1.0); Blood Urea Nitrogen 8 mg/dL (9-16); Calcium 8.1 mg/dL (8.4-10.2); Carbon Dioxide 23 mmol/L (22-29); Chloride 115 mmol/L (96-108); Creatinine Clr Calc Pharmacy 210.3; Estimated Glomerular Filt Rate > 60; Glucose Random 149 mg/dL (60-115); Magnesium 1.8 mg/dL (1.6-2.6); Sodium 143 mmol/L (135-145); Total Protein 7.9 g/dL (6.5-8.0)
[2024-04-25 15:19] LABS: Influenza A PCR NEGATIVE (Negative); Influenza B PCR NEGATIVE (Negative); Resp Syncy Virus RNA Qual PCR NEGATIVE (Negative); SARS COV2 PCR INHOUSE NEGATIVE (Negative)
[2024-04-25] MEDS: Albuterol/Iprat 2.5/0.5MG 3 ML AMPUL.NEB INHALE (16:21)
[2024-04-25 17:32] LABS: Appearance Urine Clear; Color Urine Dark Yellow; Glucose Urine UA Negative (Negative); Leukocyte Esterase Urine Negative (Negative); Nitrite Urine Negative (Negative); PH 7.5 (5.0-9.0); Urine Blood Negative (Negative); Urine Ketones Trace mg/dL (Negative); Urine Protein Negative (Neg-Trace)
[2024-04-25 17:36] LABS: INTERNATIONAL NORM RATIO 1.4 (0.9-1.1); Prothrombin Time 16.4 SEC (10.9-12.4)
[2024-04-25] MEDS: Pantoprazole Sodium 40 MG/10 ML VIAL 80 MG IVPUSH (18:15)
[2024-04-25] MEDS: Lactated Ringers 1,000 ML 999 ML IV (18:16)
[2024-04-25] MEDS: ondansetron HCL 4 MG/2 ML VIAL IVPUSH (18:18)
[2024-04-25 18:57] LABS: OBS Int Ctl Valid YES; OBS1 POSITIVE (NEGATIVE)
[2024-04-25] MEDS: iohexoL 350 MG/ML 100 ML INFUS..BTL IV (18:59)
[2024-04-25 19:00] LABS: GASOB Int Neg Ctl Valid YES; GASOB Int Pos Ctl Valid YES; GASOB Lot 2063210; Occult Blood Gastric POSITIVE (NEG)
[2024-04-25] MEDS: cefTRIAXone sodium 1 GM VIAL IVPUSH (22:23)
[2024-04-25] MEDS: Octreotide Acetate 100 MCG/ML AMPUL 50 MCG IVPUSH (22:23)
--- NOTE | 2024-04-25 23:24 | P.HPHOSP_ITS ---
History of Present Illness Date of Service: 04/25/24 Attending physician on admission: Triston Bernal Chief Complaint: SOB, cough, hematemesis, melena pt is a 49 yo male with a pmhx significant for WEBBER cirrhosis (social occasional etoh), HTN, T2DM, OLIVER on CPAP, and obesity, who presented to the ED due to 2 days of cough, SOB, fever, hematemesis and black diarrhea. the pt reports that his kids both tested positive for COVID, his testing has been negative. his cough is wet but not bringing up any sputum. no hemoptysis. his largest concern is that he has been very nauseas and vomiting blood with clots. he has a hx of cirrhosis, no EGD in years . reports that he drinks etoh socially, no binge drinking or regular use. he also complains of R sided flank pain, no urinary sx including dysuria, frequency, urgency or hematuria. Review of Systems 2 Constitutional: Constitutional: Denies body ache(s), Denies chills, Reports fatigue, Denies fever(s) and Reports headache(s) Eyes: Eyes: Denies change in vision and Denies photophobia ENT: Reports headache(s), Denies nasal congestion, Reports nasal discharge and Denies sore throat Cardiovascular: Cardiovascular: Denies chest pain, Denies rapid heart rate, Denies leg edema, Denies lightheadedness and Reports dyspnea Respiratory: Respiratory: Reports chest congestion, Reports cough, Reports dyspnea and Denies wheezing Gastrointestinal: Gastrointestinal: Reports melena, Reports diarrhea, Reports nausea, Reports vomiting and Reports hematemesis Genitourinary: Genitourinary: Denies dysuria, Denies urinary frequency, Denies urinary incontinence and Denies urinary urgency Musculoskeletal: Musculoskeletal: Denies back pain Integumentary/Breasts: Skin/Breast: Denies rash Neurologic: Denies confusion and Reports headache(s) Psychiatric: Psychiatric: Denies confusion Endocrine: Endocrine: Reports fatigue Hematologic/Lymphatic: Hematologic/Lymphatic: Denies easy bleeding and Denies easy bruising Allergic/Immunologic: Allergic/Immunologic: Denies wheezing [facility] Medical History Morbid obesity Gross hematuria Lipoma of neck On beta alma at home History of tachycardia Subcutaneous mass of neck Obesity Hx of gastritis History of anxiety History of depression COVID-19 Colitis Gallstones Asthma HTN (hypertension) Fatty liver Dysuria Arthritis Diabetes GERD (gastroesophageal reflux disease) OLIVER on CPAP Chronic back pain Cirrhosis Functional capacity: independent ambulation Family History Father No problems noted. Mother HTN (hypertension) Sister Type II diabetes mellitus Surgical History Hx of elbow surgery S/P cubital tunnel release History of esophagogastroduodenoscopy (EGD) History of left knee surgery Social History Are you a primary administrator health care facility to a significant other at home: No Do you presently have visiting nurse or other home services: No Alcohol intake: current Alcohol intake frequency: holidays/special occasions only Alcohol type: beer Patient Tobacco Use Status: Current someday Tobacco user Tobacco use type: Cigarette Smoked in Last 30 Days: Yes Use of substances other than those prescribed or required for medical reasons: No Substance Use Type: Crack/Cocaine Advance Directives: No Advance Directives Information Provided: No Do you have a plan to hurt others: No Plan service: No Current occupational status: unemployed and disabled Narrative: social etoh and tobacco, hx of drug use, none in years per pt Meds Allergies Allergy/AdvReac Type Severity Reaction Status Date / Time ranitidine [From ZANTAC] Allergy Severe DIFFICULTY Verified 04/25/24 14:01 BREATHING, ITCHING Active Medications: Current Medications Acetaminophen (Acetaminophen 325 Mg Tablet) 650 mg PO Q6H PRN PRN Reason: Pain, Mild 1-3,fever,headache Calcium Carbonate (Calcium Carbonate 750 Mg Tab.Chew) 750 mg PO Q4H PRN PRN Reason: Heartburn Dextrose (Dextrose 50 % 25 Gm/50 Ml Syringe) 25 gm IVPUSH Q15M PRN; Protocol PRN Reason: per Hypoglycemia Standing Ord. Glucose (Glucose Gel 15 Gm Gel..Gram.) 15 gm PO Q15M PRN; Protocol PRN Reason: per Hypoglycemia Standing Ord. Insulin Human Lispro (Insulin Lispro 100 Unit/Ml 3 Ml Vial) 0 unit SUBCUT Q6H [facility]; Protocol Magnesium Hydroxide (Milk Of Magnesia 30 Ml Oral.Susp) 30 ml PO DAILY PRN PRN Reason: Constipation Melatonin (Melatonin 3 Mg Tablet) 6 mg PO BEDTIME PRN PRN Reason: Insomnia Ondansetron HCl (Ondansetron Hcl 4 Mg/2 Ml Vial) 4 mg IVPUSH Q8H PRN PRN Reason: Nausea and Vomiting Pantoprazole Sodium (Pantoprazole Sodium 40 Mg/10 Ml Vial) 40 mg IVPUSH BID@0630,1630 [facility] Sodium Chloride (0.9 % Sodium Chloride Flush 3 Ml Syringe) 3 ml IVFLUSH QSHIFT [facility] Home Medications ?Medication ?Instructions ?Recorded ?Confirmed ?Last Taken ?Type dexlansoprazole 60 mg 60 mg PO DAILY 11/15/19 03/17/22 07/27/21 History capsule,biphase delayed release (Dexilant) lancets 33 gauge (TRUEplus Lancets) #100 ea 11/15/19 03/17/22 Unknown History pen needle, diabetic 32 gauge x #50 ea 11/15/19 03/17/22 Unknown History (Unifine Pentips) blood sugar diagnostic (FreeStyle #10 ea 05/03/21 03/17/22 Unknown History Lite Strips) insulin glargine U-300 conc 300 20 unit subcut DAILY 05/03/21 03/17/22 07/27/21 History unit/mL (1.5 mL) subcutaneous pen (Toujeo SoloStar U-300 Insulin) albuterol sulfate 90 mcg/actuation 2 puff inhalation Q4-6H PRN dyspnea 08/09/21 03/17/22 Unknown History aerosol inhaler (ProAir HFA) cetirizine 10 mg tablet 10 mg PO BEDTIME 08/09/21 03/17/22 Unknown History fluticasone propionate 110 1 puff PO BID 08/09/21 03/17/22 Unknown History mcg/actuation HFA aerosol inhaler (Flovent HFA) fluticasone propionate 50 1 spray intranasal DAILY 08/09/21 03/17/22 Unknown History mcg/actuation nasal spray,suspension insulin aspart U-100 100 unit/mL 10 unit subcut DIRECTED 08/09/21 03/17/22 Unknown History (3 mL) subcutaneous pen lidocaine 5 % topical patch 0 patch topical 08/09/21 03/17/22 Unknown History (Lidoderm) metoprolol succinate 50 mg 50 mg PO QAM 08/09/21 03/17/22 Unknown History tablet,extended release 24 hr montelukast 10 mg tablet 10 mg PO BEDTIME PRN 03/17/22 03/17/22 Unknown History chlorthalidone 25 mg tablet 12.5 mg PO QAM 11/17/22 Unknown History Physical Exam 2 Vital Signs and Narrative: Vital Signs: Last Vital Signs Temp 98.4 F 04/25/24 22:22 Pulse 84 04/25/24 22:22 Resp 10 L 04/25/24 22:22 BP 142/78 H 04/25/24 22:22 Pulse Ox 100 04/25/24 22:22 O2 Del Method Room Air 04/25/24 22:22 BMI result Body Mass Index 35.2 General: AOx3, no acute distress Resp: CTA bilaterally, no wheezing CVS: S1, S2, RRR GI: +BS, NT, no distention Skin: Warm, dry Neuro: Cranial nerves II-XII grossly intact bilaterally. Motor grossly intact bilaterally Extremities: No LE edema Psych: Appropriate affect Const: General: No confusion Orientation/consciousness: No confusion Eyes: Direct Ophthalmoscopy: No photophobia Neuro: General: No confusion Results Labs 04/25/24 14:27 04/25/24 14:27 Labs: Laboratory Results - last 24 hr 04/25/24 04/25/24 04/25/24 14:27 17:14 18:48 MCV 101.6 H MCH 36.0 H MCHC 35.5 RDW 16.3 H Plt Count 66 L MPV 11.7 Immature Gran % (Auto) 0.2 Neut % (Auto) 56.2 Lymph % (Auto) 31.8 [place] % (Auto) 9.6 Eos % (Auto) 1.8 Baso % (Auto) 0.4 Lymph # (Auto) 1.6 [place] # (Auto) 0.5 Eos # (Auto) 0.1 Baso # (Auto) 0.0 Abs Immat Gran (auto) 0.01 Absolute Neuts (auto) 2.9 Absolute Nucleated RBC 0.000 Nucleated RBC % (auto) 0.0 PT 16.4 H INR 1.4 H Anion Gap 9 L Estim Creat Clear Calc 210.3 Estimated GFR > 60 Random Glucose 149 H Calcium 8.1 L Magnesium 1.8 Total Bilirubin 1.8 H AST 109 H ALT 46 H Alkaline Phosphatase 130 H Total Protein 7.9 Albumin 2.9 L Urine Color Dark Yellow Urine Appearance Clear Urine pH 7.5 Ur Specific [place] 1.020 Urine Protein Negative Urine Glucose (UA) Negative Urine Ketones Trace Urine Blood Negative Urine Nitrite Negative Ur Leukocyte Esterase Negative Gastric Occult Blood POSITIVE Stool Occult Blood POSITIVE Influenza Type A (PCR) NEGATIVE Influenza Type B (PCR) NEGATIVE RSV RNA Qual (PCR) NEGATIVE SARS-CoV-2 RNA (RT-PCR) NEGATIVE Imaging Radiologist's Impressions: Impressions Chest X-Ray 04/25/24 14:00 IMPRESSION: No active pulmonary disease. Electronically signed by: Long Trujillo MD 04/25/2024 02:26 PM EDT RP Assessment and Plan (1) Acute GI bleeding: Status: Acute (2) Cirrhosis: Qualifiers: Hepatic cirrhosis type: other cirrhosis Qualified Code(s): K74.69 - Other cirrhosis of liver Status: Acute (3) URI, acute: Status: Acute (4) Obesity (BMI 30-39.9): Status: Acute Plan pt is a 49 yo male with a pmhx significant for WEBBER cirrhosis (social occasional etoh), HTN, T2DM, OLIVER on CPAP, and obesity, who presented to the ED due to 2 days of cough, SOB, fever, hematemesis and black diarrhea. acute GI bleed in the setting of cirrhosis - H+H stable, 13.3/37.5, no need for blood transfusion - FOBT and gastric occult + - A/P CT with no evidence of active GI bleed, hepatic sources with moderate gastrohepatic varices and splenomegaly. Moderate mesenteric stranding. No significant ascites. - given Protonix, octreotide and ceftriaxone in ED, continue all - NPO - GI consult - monitor CBC and CMP Acute URI, likely COVID - WBC normal, vital signs stable, no sepsis - chest x-ray negative - multiple family members with COVID, COVID/flu/RSV negative here - supportive care - monitor CBC HTN - continue home meds once med rec done Type 2 diabetes - patient unsure of his medications, wait for med rec - sliding scale insulin OLIVER - CPAP at bedtime Obesity - BMI 35.2 - Weight loss encouraged Full Code VTE prophylaxis: Pneumoboots, anticoagulant contraindicated Patient with acute GI bleed setting of cirrhosis complicated by acute URI, likely COVID, requiring admission for further evaluation and Gastroenterology consultation. Quality Stroke Does the patient have a stroke diagnosis?: No VTE Prior VTE?: No VTE Risk Level:: Medical - moderate - high VTE Device Contraindication: N/A - Device Ordered VTE Drug Contraindication: Treatment Not Indicated
[2024-04-25 23:47] LABS: Glucose, Whole Blood 113 mg/dL (60-115)
[2024-04-26] VITALS (10 sets, daily range): BP systolic 117–150; BP diastolic 51–80; PULSE 53–86; RESP 12–19; TEMP 36.6–37.1; O2SAT 96–99
--- NOTE | 2024-04-26 00:28 | PC.NURSE ---
confirmed Octreotide Acetate 500 mcg in 0.9% NACL order with Lynn from pharmacy
[2024-04-26] MEDS: Octreotide Acetate 500 MCG in 0.9 % Sodium Chloride 500 ML 25.05 MCG IVCONT ×2 (00:43→21:07)
[2024-04-26] MEDS: Benzonatate 100 MG CAPSULE PO (04:49)
[2024-04-26] MEDS: ondansetron HCL 4 MG/2 ML VIAL IVPUSH (04:51)
[2024-04-26 05:12] LABS: MANUAL DIFF FLAG NO
[2024-04-26 05:16] LABS: Basophils Percent Auto 0.8 % (0-2); Eosinophils Absolute Auto 0.1 X10*3/uL (0.0-0.4); Eosinophils Percent Auto 2.6 % (0-4); Hematocrit 35.2 % (42.0-52.0); Hemoglobin 12.2 g/dl (14.0-18.0); Lymphocytes Absolute Auto 1.2 X10*3/uL (1.2-4.9); Lymphocytes Percent Auto 31.2 % (20-40); Mean Corpuscular HGB Conc 34.7 g/dl (31.0-36.0); Mean Corpuscular Volume 103.8 fL (80.0-98.0); Mean Platelet Volume 10.7 fL (9.4-12.4); Monocytes Absolute Auto 0.4 X10*3/uL (0.1-1.2); Monocytes Percent Auto 11.4 % (2-11); Neutrophils Absolute Auto 2.1 x10*3/uL (2.0-8.3); Red Blood Count 3.39 X10*6/uL (4.60-5.80); Red Cell Distribution Width 15.9 % (11.0-16.0); White Blood Count 3.9 X10*3/uL (4.8-10.8)
[2024-04-26] MEDS: Ketorolac Tromethamine 15 MG/ML VIAL IVPUSH (05:19)
[2024-04-26 05:20] LABS: Platelet Count 55 X10*3/uL (160-400)
[2024-04-26 05:38] LABS: Alanine Aminotransferase 35 U/L (0-40); Albumin Level 2.6 g/dL (3.5-5.0); Alkaline Phosphatase 114 U/L (39-117); Anion Gap 7 (12-20); Aspartate Amino Transferase 81 U/L (5-37); Bilirubin Total 2.3 mg/dL (0.0-1.0); Blood Urea Nitrogen 10 mg/dL (9-16); Carbon Dioxide 25 mmol/L (22-29); Chloride 113 mmol/L (96-108); Creatinine Clr Calc Pharmacy 182.3; Estimated Glomerular Filt Rate > 60; Glucose Random 122 mg/dL (60-115); Potassium 4.3 mmol/L (3.3-5.1); Sodium 141 mmol/L (135-145); Total Protein 7.2 g/dL (6.5-8.0)
[2024-04-26 06:26] LABS: Estimated Average Glucose 108 mg/dL; Hemoglobin A1c % 5.4 % (<6.0); Total Hemoglobin (HGBA1C) 3482.2609 umol/L
[2024-04-26] MEDS: Pantoprazole Sodium 40 MG/10 ML VIAL IVPUSH ×2 (06:26→17:41)
[2024-04-26 06:30] LABS: Glucose, Whole Blood 119 mg/dL (60-115)
--- NOTE | 2024-04-26 08:12 | HO.PM.IMPN ---
Subjective Subjective Date of Service: 04/26/24 Interval History: f/u on acute gib no active bleed, H/H is stable Physical Exam Vital Signs: Vital Signs: Last Vital Signs Temp 98.1 F 04/26/24 08:00 Pulse 86 04/26/24 08:00 Resp 15 04/26/24 08:00 BP 131/76 04/26/24 08:00 Pulse Ox 98 04/26/24 08:00 O2 Del Method Room Air 04/26/24 08:00 BMI result Body Mass Index 35.2 Const: Other: Appearance: Alert. Oriented X3. No acute distress. . CVS: Normal heart rate and rhythm. Pulses normal. Normal S1 and S2 Respiratory: No respiratory distress. Breath sounds normal. No Wheezing. No rales Abdomen: Soft and nontender. No rigidity. No distention. Skin: Skin warm and dry. Normal skin color. Normal skin turgor. Extremities: No lower extremity edema. No Lacerations. No Rash Neuro: Oriented X 3. No motor deficit. No sensory deficit. Moving all extremities. No slurred speech. CN 2 through 12 grossly intact Psych: calm, cooperative, normal affect Objective Data Active Medications Acetaminophen (Acetaminophen 325 Mg Tablet) 650 mg PO Q6H PRN PRN Reason: Pain, Mild 1-3,fever,headache Benzonatate (Benzonatate 100 Mg Capsule) 100 mg PO TID PRN PRN Reason: Cough Last Admin: 04/26/24 04:49 Dose: 100 mg Documented By: EDMUNDO Calcium Carbonate (Calcium Carbonate 750 Mg Tab.Chew) 750 mg PO Q4H PRN PRN Reason: Heartburn Ceftriaxone Sodium (Ceftriaxone Sodium 1 Gm Vial) 1 gm IVPUSH Q24H [facility] Stop: 05/02/24 21:59 Dextrose (Dextrose 50 % 25 Gm/50 Ml Syringe) 25 gm IVPUSH Q15M PRN; Protocol PRN Reason: per Hypoglycemia Standing Ord. Glucose (Glucose Gel 15 Gm Gel..Gram.) 15 gm PO Q15M PRN; Protocol PRN Reason: per Hypoglycemia Standing Ord. Octreotide Acetate 500 mcg/ (Sodium Chloride) 501 mls @ 25.05 mls/hr IVCONT .Q20H [facility] Last Admin: 04/26/24 00:43 Dose: 25 mcg/hr, 25.05 mls/hr Documented By: EDMUNDO Insulin Human Lispro (Insulin Lispro 100 Unit/Ml 3 Ml Vial) 0 unit SUBCUT Q6H [facility]; Protocol Last Admin: 04/26/24 06:31 Dose: Not Given Documented By: EDMUNDO Non-Admin Reason: No Insulin Coverage Comments: POC 122 Magnesium Hydroxide (Milk Of Magnesia 30 Ml Oral.Susp) 30 ml PO DAILY PRN PRN Reason: Constipation Melatonin (Melatonin 3 Mg Tablet) 6 mg PO BEDTIME PRN PRN Reason: Insomnia Ondansetron HCl (Ondansetron Hcl 4 Mg/2 Ml Vial) 4 mg IVPUSH Q8H PRN PRN Reason: Nausea and Vomiting Last Admin: 04/26/24 04:51 Dose: 4 mg Documented By: EDMUNDO Pantoprazole Sodium (Pantoprazole Sodium 40 Mg/10 Ml Vial) 40 mg IVPUSH BID@0630,1630 [facility] Last Admin: 04/26/24 06:26 Dose: 40 mg Documented By: EDMUNDO Sodium Chloride (0.9 % Sodium Chloride Flush 3 Ml Syringe) 3 ml IVFLUSH QSHIFT [facility] Last Admin: 04/26/24 07:29 Dose: Not Given Documented By: YOSEPH Non-Admin Reason: IV Running Labs 04/26/24 05:08 04/26/24 05:08 Labs: Laboratory Results - last 24 hr 04/25/24 04/25/24 04/25/24 14:27 17:14 18:48 MCV 101.6 H MCH 36.0 H MCHC 35.5 RDW 16.3 H Plt Count 66 L MPV 11.7 Immature Gran % (Auto) 0.2 Neut % (Auto) 56.2 Lymph % (Auto) 31.8 [place] % (Auto) 9.6 Eos % (Auto) 1.8 Baso % (Auto) 0.4 Lymph # (Auto) 1.6 [place] # (Auto) 0.5 Eos # (Auto) 0.1 Baso # (Auto) 0.0 Abs Immat Gran (auto) 0.01 Absolute Neuts (auto) 2.9 Absolute Nucleated RBC 0.000 Nucleated RBC % (auto) 0.0 PT 16.4 H INR 1.4 H Anion Gap 9 L Estim Creat Clear Calc 210.3 Estimated GFR > 60 POC Glucose Random Glucose 149 H Estimat Average Glucose 108 Hemoglobin A1c % 5.4 Calcium 8.1 L Magnesium 1.8 Total Bilirubin 1.8 H AST 109 H ALT 46 H Alkaline Phosphatase 130 H Total Protein 7.9 Albumin 2.9 L Urine Color Dark Yellow Urine Appearance Clear Urine pH 7.5 Ur Specific [place] 1.020 Urine Protein Negative Urine Glucose (UA) Negative Urine Ketones Trace Urine Blood Negative Urine Nitrite Negative Ur Leukocyte Esterase Negative Gastric Occult Blood POSITIVE Stool Occult Blood POSITIVE Influenza Type A (PCR) NEGATIVE Influenza Type B (PCR) NEGATIVE RSV RNA Qual (PCR) NEGATIVE SARS-CoV-2 RNA (RT-PCR) NEGATIVE 04/25/24 04/26/24 04/26/24 23:41 05:08 06:28 MCV 103.8 H MCH 36.0 H MCHC 34.7 RDW 15.9 Plt Count 55 L MPV 10.7 Immature Gran % (Auto) 0.0 Neut % (Auto) 54.0 Lymph % (Auto) 31.2 [place] % (Auto) 11.4 H Eos % (Auto) 2.6 Baso % (Auto) 0.8 Lymph # (Auto) 1.2 [place] # (Auto) 0.4 Eos # (Auto) 0.1 Baso # (Auto) 0.0 Abs Immat Gran (auto) 0.00 Absolute Neuts (auto) 2.1 Absolute Nucleated RBC 0.000 Nucleated RBC % (auto) 0.0 PT INR Anion Gap 7 L Estim Creat Clear Calc 182.3 Estimated GFR > 60 POC Glucose 113 119 H Random Glucose 122 H Estimat Average Glucose Hemoglobin A1c % Calcium 8.0 L Magnesium Total Bilirubin 2.3 H AST 81 H ALT 35 Alkaline Phosphatase 114 Total Protein 7.2 Albumin 2.6 L Urine Color Urine Appearance Urine pH Ur Specific [place] Urine Protein Urine Glucose (UA) Urine Ketones Urine Blood Urine Nitrite Ur Leukocyte Esterase Gastric Occult Blood Stool Occult Blood Influenza Type A (PCR) Influenza Type B (PCR) RSV RNA Qual (PCR) SARS-CoV-2 RNA (RT-PCR) Assessment and Plan (1) Acute GI bleeding: Status: Acute Plan pt is a 49 yo male with a pmhx significant for WEBBER cirrhosis (social occasional etoh), HTN, T2DM, OLIVER on CPAP, and obesity, who presented to the ED due to 2 days of cough, SOB, fever, hematemesis and black diarrhea. acute GI bleed in the setting of cirrhosis, with acute blood loss anemia H+H stable, 13.3/37.5--> 12.2/35/2, no need for blood transfusion FOBT and gastric occult + A/P CT with no evidence of active GI bleed, hepatic sources with moderate gastrohepatic varices and splenomegaly. Moderate mesenteric stranding. No significant ascites. IV Protonix, octreotide and ceftriaxone in ED, continue all NPO GI consult monitor CBC and CMP Acute URI, + exposure to covid, however covid/flu/rsv negative, cxr nl symptomatic treatment HTN -continue home meds once med rec done Type 2 diabetes, A1C 5.3 sliding scale insulin OLIVER CPAP at bedtime Obesity, BMI 35.2 Weight loss encouraged Full Code VTE prophylaxis: Pneumoboots, anticoagulant contraindicated need for inpt: work and close monitory for upper gib Quality Stroke Does the patient have a stroke diagnosis?: No VTE Prior VTE?: No VTE Risk Level:: Medical - moderate - high VTE Device Contraindication: N/A - Device Ordered VTE Drug Contraindication: Treatment Not Indicated
[2024-04-26] MEDS: Acetaminophen 325 MG TABLET 650 MG PO (10:27)
--- NOTE | 2024-04-26 10:29 | PC.NURSE ---
LS CTA. dry cough noted. ski PWD. NSR on monitor. c/o right flank pain non-reproducable. denoies vomiting today and no BM as of yet. up with steady gait to BR. awaits bed assignemnet. requested pain meds for facial/head pain.
--- NOTE | 2024-04-26 10:34 | PM.GICN ---
History of Present Illness Data of Consult Service Date: 04/26/24 Primary Care Provider: Hanna Ocasio MD HPI Reason for consult: ?melena 49 yo male with hx of compensated cirrhosis , HTN, T2DM, OLIVER on CPAP, and obesity, who I am seeing for assessment for melena Patient said he noted 2 d of sour bad taste in mouth with xs saliva. He then had issues with nausea and vomiting with clots and dark liquid stools. He denies SOB, dizziness or chest pain, abdominal pain. drank 6 pack of beer last week, denies nsaid use. no urinary sx including dysuria, frequency, urgency or hematuria. Family members with covid but he has no resp sx and testing her was neg for flu and convid. Review of Systems Review of Systems: Constitutional : No Weight loss, No Fever, No Chills ENT/Mouth : No sore throat, No Rhinorrhea Eyes: No Swelling, No Redness Cardiovascular : No Chest Pain, No SOB, No Edema Respiratory : No Cough, No Sputum, No Wheezing Gastrointestinal : see HPI Genitourinary : NO Dysuria, No Urinary Frequency, No Hematuria, No Urgency Musculoskeletal : no joint pain, No Myalgias, No Joint Swelling Skin : No Skin Lesions, No rash Neuro : No Weakness, No Numbness, No Dizziness, No Headache Psych : No Anxiety/Panic, No Depression Heme/Lymph: No Bruising, No Lymphadenopathy Endocrine : No Polyuria, No Polydipsia All other systems reviewed and are negative. [facility] Past Medical History Medical History Morbid obesity Gross hematuria Lipoma of neck On beta alma at home History of tachycardia Subcutaneous mass of neck Obesity Hx of gastritis History of anxiety History of depression COVID-19 Colitis Gallstones Asthma HTN (hypertension) Fatty liver Dysuria Arthritis Diabetes GERD (gastroesophageal reflux disease) OLIVER on CPAP Chronic back pain Cirrhosis Family History Family History Father No problems noted. Mother HTN (hypertension) Sister Type II diabetes mellitus Surgical History Surgical History Hx of elbow surgery S/P cubital tunnel release History of esophagogastroduodenoscopy (EGD) History of left knee surgery Social History Social History Are you a primary career advisor to a significant other at home: No Do you presently have visiting nurse or other home services: No Alcohol intake: current Alcohol intake frequency: holidays/special occasions only Alcohol type: beer Patient Tobacco Use Status: Current someday Tobacco user Tobacco use type: Cigarette Smoked in Last 30 Days: Yes Use of substances other than those prescribed or required for medical reasons: No Substance Use Type: Crack/Cocaine Advance Directives: No Advance Directives Information Provided: No Do you have a plan to hurt others: No Plan service: No Current occupational status: unemployed and disabled Meds Allergies Allergy/AdvReac Type Severity Reaction Status Date / Time ranitidine [From ZANTAC] Allergy Severe DIFFICULTY Verified 04/25/24 14:01 BREATHING, ITCHING Active Medications: Current Medications Acetaminophen (Acetaminophen 325 Mg Tablet) 650 mg PO Q6H PRN PRN Reason: Pain, Mild 1-3,fever,headache Last Admin: 04/26/24 10:27 Dose: 650 mg Benzonatate (Benzonatate 100 Mg Capsule) 100 mg PO TID PRN PRN Reason: Cough Last Admin: 04/26/24 04:49 Dose: 100 mg Calcium Carbonate (Calcium Carbonate 750 Mg Tab.Chew) 750 mg PO Q4H PRN PRN Reason: Heartburn Ceftriaxone Sodium (Ceftriaxone Sodium 1 Gm Vial) 1 gm IVPUSH Q24H BRYANNA Stop: 05/02/24 21:59 Dextrose (Dextrose 50 % 25 Gm/50 Ml Syringe) 25 gm IVPUSH Q15M PRN; Protocol PRN Reason: per Hypoglycemia Standing Ord. Glucose (Glucose Gel 15 Gm Gel..Gram.) 15 gm PO Q15M PRN; Protocol PRN Reason: per Hypoglycemia Standing Ord. Octreotide Acetate 500 mcg/ (Sodium Chloride) 501 mls @ 25.05 mls/hr IVCONT .Q20H BRYANNA Last Admin: 04/26/24 00:43 Dose: 25 mcg/hr, 25.05 mls/hr Insulin Human Lispro (Insulin Lispro 100 Unit/Ml 3 Ml Vial) 0 unit SUBCUT Q6H BRYANNA; Protocol Last Admin: 04/26/24 06:31 Dose: Not Given Magnesium Hydroxide (Milk Of Magnesia 30 Ml Oral.Susp) 30 ml PO DAILY PRN PRN Reason: Constipation Melatonin (Melatonin 3 Mg Tablet) 6 mg PO BEDTIME PRN PRN Reason: Insomnia Ondansetron HCl (Ondansetron Hcl 4 Mg/2 Ml Vial) 4 mg IVPUSH Q8H PRN PRN Reason: Nausea and Vomiting Last Admin: 04/26/24 04:51 Dose: 4 mg Pantoprazole Sodium (Pantoprazole Sodium 40 Mg/10 Ml Vial) 40 mg IVPUSH BID@0630,1630 [facility] Last Admin: 04/26/24 06:26 Dose: 40 mg Sodium Chloride (0.9 % Sodium Chloride Flush 3 Ml Syringe) 3 ml IVFLUSH QSHIFT [facility] Last Admin: 04/26/24 07:29 Dose: Not Given Home Medications ?Medication ?Instructions ?Recorded ?Confirmed ?Last Taken ?Type lancets 33 gauge (TRUEplus Lancets) #100 ea 11/15/19 03/17/22 Unknown History pen needle, diabetic 32 gauge x #50 ea 11/15/19 03/17/22 Unknown History (Unifine Pentips) blood sugar diagnostic (FreeStyle #10 ea 05/03/21 03/17/22 Unknown History Lite Strips) cetirizine 10 mg tablet 10 mg PO BEDTIME 08/09/21 04/26/24 04/25/24 History fluticasone propionate 50 1 spray intranasal DAILY 08/09/21 04/26/24 04/25/24 History mcg/actuation nasal spray,suspension lidocaine 5 % topical patch 1 patch topical DAILY PRN Pain 08/09/21 04/26/24 Unknown History (Lidoderm) metoprolol succinate 50 mg 50 mg PO DAILY 08/09/21 04/26/24 04/25/24 History tablet,extended release 24 hr montelukast 10 mg tablet 10 mg PO BEDTIME PRN Allergy 03/17/22 04/26/24 Unknown History Symptoms chlorthalidone 25 mg tablet 12.5 mg PO DAILY 11/17/22 04/26/24 04/25/24 History cholecalciferol (vitamin D3) 50 50 mcg PO DAILY 04/26/24 04/26/24 04/25/24 History mcg (2,000 unit) capsule (Vitamin D3) dexlansoprazole 60 mg 60 mg PO DAILY 04/26/24 04/26/24 04/25/24 History capsule,biphase delayed release (Dexilant) multivitamin 1 tab PO DAILY 04/26/24 04/26/24 04/25/24 History rosuvastatin 5 mg tablet 5 mg PO DAILY 04/26/24 04/26/24 04/25/24 History Physical Exam Vital Signs: Vital Signs: Last Vital Signs Temp 98.5 F 04/26/24 10:30 Pulse 61 04/26/24 10:30 Resp 15 04/26/24 08:00 BP 141/65 H 04/26/24 10:30 Pulse Ox 98 04/26/24 10:30 O2 Del Method Room Air 04/26/24 10:30 BMI result Body Mass Index 35.2 EXAM: GENERAL: The patient is well developed and nontoxic. VITAL SIGNS:see workflow HEENT: Nonicteric sclerae, PERRLA, EOMI. Oropharynx clear. Moist mucous membranes. Conjunctivae appear well perfused. No thyroid mass. CHEST: Chest wall is nontender. HEART: Regular rate and rhythm without murmurs. LUNGS: Clear to auscultation bilaterally. ABDOMEN: Soft, positive bowel sounds, nontender, no organomegaly.no flank tenderness SKIN: No rash, no excessive bruising, petechiae, or purpura. NEUROLOGIC: Cranial nerves II-XII intact without motor/sensory deficit. Psych: normal affect Results Labs 04/26/24 05:08 04/26/24 05:08 Labs: Short CBC 04/25/24 04/26/24 Range/Units 14:27 05:08 WBC 5.1 3.9 L (4.8-10.8) X10*3/uL Hgb 13.3 L 12.2 L (14.0-18.0) g/dl Hct 37.5 L 35.2 L (42.0-52.0) % Plt Count 66 L 55 L (160-400) X10*3/uL BMP 04/25/24 04/26/24 14:27 05:08 Sodium 143 141 Potassium 4.0 4.3 Chloride 115 H 113 H Carbon Dioxide 23 25 BUN 8 L 10 Creatinine 0.52 0.60 Calcium 8.1 L 8.0 L Liver Function 04/25/24 04/26/24 Range/Units 14:27 05:08 Total Bilirubin 1.8 H 2.3 H (0.0-1.0) mg/dL AST 109 H 81 H (5-37) U/L ALT 46 H 35 (0-40) U/L Alkaline Phosphatase 130 H 114 (39-117) U/L Albumin 2.9 L 2.6 L (3.5-5.0) g/dL Urine 04/25/24 Range/Units 17:14 Urine Color Dark Yellow Urine Appearance Clear Urine pH 7.5 (5.0-9.0) Ur Specific [place] 1.020 (1.005-1.025) Urine Protein Negative (Neg-Trace) mg/dL Urine Glucose (UA) Negative (Negative) mg/dL Imaging CT scan - abdomen: Attestation: I personally reviewed and interpreted this imaging study as follows: (cirrhotix liver, degen spinal disease, gallstones) Assessment and Plan (1) Acute GI bleeding: Status: Acute Plan 1/ Acute blood loss anemia with stable HGB, may be gastroenteritis,, esophagitis, PUD, less likely variceal bleed given presentation, PLAN: /1 - clears ok 2/ X 2 IV access and fluids 3/ IV PPI BID 4/ EGD tomorrow for further assessment Procedures Date of Service Date of Service: 04/26/24
[2024-04-26 11:18] LABS: Glucose, Whole Blood 99 mg/dL (60-115)
--- NOTE | 2024-04-26 11:22 | MHC.CM.PN ---
Pt. 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 For DME, he has a a cane. HCP discussed, he declined to complete form here. PCP confirmed: Hanna Ocasio. Transportation home at DC by his . DCP: home, self care. CM to follow for DC needs.
--- NOTE | 2024-04-26 11:31 | PHA.MEDREC ---
Addendum entered by Ba Barton 04/26/24 11:37: reviewed Original Note: Pharmacy Consult ? Medication Reconciliation Pharmacy has completed the medication reconciliation. Spoke to patient to confirm med list. Patient states he stopped all insulins for a few months due to him loosing wait. patient states he has been of insulin for over 3 months. Patient was taking trulicity every ,however his sugars have been doing good since his weight loss.
[2024-04-26] MEDS: Multivitamin TABLET 1 TAB PO (12:45)
[2024-04-26 17:23] LABS: Glucose, Whole Blood 137 mg/dL (60-115)
[2024-04-26] MEDS: Loratadine 10 MG TABLET PO (21:07)
[2024-04-26] MEDS: Atorvastatin Calcium 10 MG TABLET PO (21:07)
[2024-04-26] MEDS: cefTRIAXone sodium 1 GM VIAL IVPUSH (21:16)
[2024-04-26 23:36] LABS: Glucose, Whole Blood 134 mg/dL (60-115)
[2024-04-27] VITALS (12 sets, daily range): BP systolic 123–164; BP diastolic 64–89; PULSE 58–86; RESP 16–27; TEMP 36.4–37.2; O2SAT 94–98
[2024-04-27] MEDS: Pantoprazole Sodium 40 MG/10 ML VIAL IVPUSH ×2 (06:02→16:20)
[2024-04-27 06:28] LABS: Glucose, Whole Blood 120 mg/dL (60-115)
[2024-04-27 07:39] LABS: MANUAL DIFF FLAG NO
[2024-04-27 07:58] LABS: Glucose, Whole Blood 120 mg/dL (60-115)
[2024-04-27 08:03] LABS: Basophils Percent Auto 0.7 % (0-2); Eosinophils Absolute Auto 0.1 X10*3/uL (0.0-0.4); Eosinophils Percent Auto 4.6 % (0-4); Hematocrit 34.2 % (42.0-52.0); Hemoglobin 11.8 g/dl (14.0-18.0); Lymphocytes Percent Auto 35.8 % (20-40); Mean Corpuscular HGB Conc 34.5 g/dl (31.0-36.0); Mean Corpuscular Hemoglobin 35.4 pg (27.0-33.0); Mean Corpuscular Volume 102.7 fL (80.0-98.0); Mean Platelet Volume 11.4 fL (9.4-12.4); Monocytes Absolute Auto 0.3 X10*3/uL (0.1-1.2); Monocytes Percent Auto 10.3 % (2-11); Neutrophils Absolute Auto 1.4 x10*3/uL (2.0-8.3); Neutrophils Percent Auto 48.6 % (45-73); Red Blood Count 3.33 X10*6/uL (4.60-5.80); Red Cell Distribution Width 15.6 % (11.0-16.0); White Blood Count 2.8 X10*3/uL (4.8-10.8)
[2024-04-27 08:05] LABS: Platelet Count 54 X10*3/uL (160-400)
[2024-04-27] MEDS: Metoprolol Succinate ER 50 MG TAB.ER.24H PO (08:15)
[2024-04-27] MEDS: Multivitamin TABLET 1 TAB PO (08:15)
[2024-04-27] MEDS: Cholecalciferol (Vitamin D3) 25 MCG TABLET 50 MCG PO (08:15)
[2024-04-27] MEDS: hydroCHLOROthiazide 25 MG TABLET 12.5 MG PO (08:15)
[2024-04-27] MEDS: Tamsulosin HCL 0.4 MG CAPSULE PO (08:15)
[2024-04-27 08:31] LABS: Alanine Aminotransferase 55 U/L (0-40); Albumin Level 2.6 g/dL (3.5-5.0); Alkaline Phosphatase 106 U/L (39-117); Anion Gap 9 (12-20); Aspartate Amino Transferase 148 U/L (5-37); Blood Urea Nitrogen 10 mg/dL (9-16); Calcium 7.9 mg/dL (8.4-10.2); Carbon Dioxide 25 mmol/L (22-29); Chloride 108 mmol/L (96-108); Creatinine Clr Calc Pharmacy 185.4; Estimated Glomerular Filt Rate > 60; Glucose Random 117 mg/dL (60-115); Potassium 4.1 mmol/L (3.3-5.1); Sodium 138 mmol/L (135-145); Total Protein 7.1 g/dL (6.5-8.0)
[2024-04-27 08:40] LABS: Bilirubin Total 3.4 mg/dL (0.0-1.0)
--- NOTE | 2024-04-27 09:29 | P.DS_ITS ---
DS: Providers Provider Date of Service: 04/28/24 Date of admission: 04/25/24 23:16 Date of discharge: 04/28/24 Primary care physician: Hanna Ocasio MD Consults: 04/25/24 23:15 Consult to Gastroenterology Routine Consulting Provider: Rajendra Davila Reason for consultation: Gi bleed, hematemesis/melena, cirrhosis, varices Has provider been notified: No DS: Diagnosis Discharge Diagnosis (1) Acute GI bleeding: Status: Acute DS: Summary Hospital Course Hospital Course: Admission Chief Complaint: SOB, cough, hematemesis, melena pt is a 49 yo male with a pmhx significant for WEBBER cirrhosis (social occasional etoh), HTN, T2DM, OLIVER on CPAP, and obesity, who presented to the ED due to 2 days of cough, SOB, fever, hematemesis and black diarrhea. the pt reports that his kids both tested positive for COVID, his testing has been negative. his cough is wet but not bringing up any sputum. no hemoptysis. his largest concern is that he has been very nauseas and vomiting blood with clots. he has a hx of cirrhosis, no EGD in years . reports that he drinks etoh socially, no binge drinking or regular use. he also complains of R sided flank pain, no urinary sx including dysuria, frequency, urgency or hematuria. Hospital course: Patient presented with hematemsis, melana and found to be anemic with initial hemoglobin of 13 on 04/25, droping to 11 by 04/26 by the second day of hospitalization and now 13 again today. He was treated with IV protonix, and ocreotide drip. He has not had any further bleeding while in the hospital He underwent EGD on 04/27 with findings and plan as below Impression/Findings: esophageal varices portal hypertensive gastropathy Intervention: Banding of varices PLAN: keep on BID pantoprazole 40 mg PO or IV can use carafate for 1 week cont octreotide for 48 hrs ceftriaxone 1 g daily for 1 week (or PO equivalent per gi) rept EGD in 2-4 weeks GERD precautions clears today and advance tomorrow as tolerated -- outpatient triple phase CT He is tolearting regular diet and will be discharge to follow up with GI as above Time Attestation Discharge Coordination Time (in mins): 35 Quality: Safe Use of Opioids Does Pt have an Active Cancer Diagnosis on the Problem List?: No Quality: Stroke Does the patient have a stroke diagnosis?: No Physical Exam Vital Signs: Vital Signs: Last Vital Signs Temp 98.2 F 04/27/24 07:16 Pulse 68 04/27/24 07:16 Resp 16 04/27/24 07:16 BP 144/68 H 04/27/24 07:16 Pulse Ox 95 04/27/24 07:16 O2 Del Method Room Air 04/27/24 07:16 BMI result Body Mass Index 35.2 DS: Data Data Completed and Pending Labs on day of discharge: Laboratory Results - last 24 hr 04/26/24 04/26/24 04/26/24 11:15 17:19 23:32 WBC RBC Hgb Hct MCV MCH MCHC RDW Plt Count MPV Immature Gran % (Auto) Neut % (Auto) Lymph % (Auto) [place] % (Auto) Eos % (Auto) Baso % (Auto) Lymph # (Auto) [place] # (Auto) Eos # (Auto) Baso # (Auto) Abs Immat Gran (auto) Absolute Neuts (auto) Absolute Nucleated RBC Nucleated RBC % (auto) Sodium Potassium Chloride Carbon Dioxide Anion Gap BUN Creatinine Estim Creat Clear Calc Estimated GFR POC Glucose 99 137 H 134 H Random Glucose Calcium Total Bilirubin AST ALT Alkaline Phosphatase Total Protein Albumin 04/27/24 04/27/24 04/27/24 06:24 06:47 07:20 WBC 2.8 L RBC 3.33 L Hgb 11.8 L Hct 34.2 L MCV 102.7 H MCH 35.4 H MCHC 34.5 RDW 15.6 Plt Count 54 L MPV 11.4 Immature Gran % (Auto) 0.0 Neut % (Auto) 48.6 Lymph % (Auto) 35.8 [place] % (Auto) 10.3 Eos % (Auto) 4.6 H Baso % (Auto) 0.7 Lymph # (Auto) 1.0 L [place] # (Auto) 0.3 Eos # (Auto) 0.1 Baso # (Auto) 0.0 Abs Immat Gran (auto) 0.00 Absolute Neuts (auto) 1.4 L Absolute Nucleated RBC 0.000 Nucleated RBC % (auto) 0.0 Sodium 138 Potassium 4.1 Chloride 108 Carbon Dioxide 25 Anion Gap 9 L BUN 10 Creatinine 0.59 Estim Creat Clear Calc 185.4 Estimated GFR > 60 POC Glucose 120 H 120 H Random Glucose 117 H Calcium 7.9 L Total Bilirubin 3.4 H AST 148 H ALT 55 H Alkaline Phosphatase 106 Total Protein 7.1 Albumin 2.6 L Discharge Plan Discharge Anticipated Discharge Date/Time: 04/28/24 09:52 Patient Disposition: Home, Self-Care Discharge Diagnosis: Acute GI bleeding, cirrhosis, Referrals: Hanna Ocasio MD [Primary Care Provider] - 1 Week Discharge Medications: New cefuroxime axetil 500 mg tablet 500 mg PO BID 7 Days Qty: 14 0RF sucralfate 1 gram Tablet 1 g PO QID Qty: 28 0RF omeprazole 40 mg capsule,delayed release(DR/EC) 40 mg PO BID Qty: 180 0RF Continued tadalafil 20 mg tablet 20 mg PO ONCE PRN (Reason: sexual activity) 30 Days Qty: 30 1RF Rx Instructions: On demand medication take 60 minutes before intended activity acetaminophen [Tylenol Extra Strength] 500 mg tablet 500 mg PO Q6H PRN (Reason: pain or fever) Qty: 20 0RF montelukast 10 mg tablet 10 mg PO BEDTIME PRN (Reason: Allergy Symptoms) multivitamin Tablet 1 tab PO DAILY rosuvastatin 5 mg tablet 5 mg PO DAILY cholecalciferol (vitamin D3) [Vitamin D3] 50 mcg (2,000 unit) capsule 50 mcg PO DAILY dexlansoprazole [Dexilant] 60 mg capsule,biphase delayed releas 60 mg PO DAILY (DME) pen needle, diabetic [Unifine Pentips] 32 gauge x 5/32 needle See Rx Instructions .ROUTE .MEDSUPPLY Qty: 50 Rx Instructions: As directed (DME) lancets [TRUEplus Lancets] 33 gauge misc See Rx Instructions .ROUTE .MEDSUPPLY Qty: 100 Rx Instructions: As directed (DME) FreeStyle Lite Strips Strip See Rx Instructions Not Applicable QID Qty: 10 Rx Instructions: As directed lidocaine [Lidoderm] 5 % adhesive patch,medicated 1 patch topical DAILY PRN (Reason: Pain) fluticasone propionate 50 mcg/actuation spray,suspension 1 spray intranasal DAILY metoprolol succinate 50 mg tablet extended release 24 hr 50 mg PO DAILY cetirizine 10 mg tablet 10 mg PO BEDTIME chlorthalidone 25 mg tablet 12.5 mg PO DAILY tamsulosin 0.4 mg capsule 0.4 mg PO DAILY 90 Days Qty: 90 1RF Discharge Orders: Discharge Order (Routine); Ordered 04/28/24 Ordered By: Monty Hudson Diet: Advance to usual diet Activity on Discharge: As tolerated Stand Alone Forms: Patient Portal Discharge page Print Language: Ghanaian Care Plan Goals: recovery from GI bleeding from variceal bleed Health Concerns: Cirrhosis of the liver GI bleeding Acute blood loss anemia Portal hypertension gastropathy Plan of Treatment: Take Prilosec as directed Take Carafate as directed Take Ceftin as directed Follow-up with Dr. Anna Avoid aspirin, motrin Assessment: see above
[2024-04-27 11:23] LABS: Glucose, Whole Blood 120 mg/dL (60-115)
[2024-04-27 11:41] LABS: Glucose, Whole Blood 122 mg/dL (60-115)
--- NOTE | 2024-04-27 12:56 | P.PNGI_ITS ---
Subjective Subjective Date of Service: 04/27/24 Interval History: HGB is stable he has right flank discomfort no n/v no fever no more dark stools or diarrhea Critical Care Time (minutes): 0 Physical Exam 2 Vital Signs: Vital Signs: Last Vital Signs Temp 98.2 F 04/27/24 11:16 Pulse 58 04/27/24 11:16 Resp 16 04/27/24 11:16 BP 130/76 04/27/24 11:16 Pulse Ox 98 04/27/24 11:16 O2 Del Method Room Air 04/27/24 11:16 BMI result Body Mass Index 35.2 EXAM: GENERAL: The patient is well developed and nontoxic. VITAL SIGNS:see workflow HEENT: Nonicteric sclerae, PERRLA, EOMI. Oropharynx clear. Moist mucous membranes. Conjunctivae appear well perfused. No thyroid mass. CHEST: Chest wall is nontender. HEART: Regular rate and rhythm without murmurs. LUNGS: Clear to auscultation bilaterally. ABDOMEN: Soft, positive bowel sounds, nontender, no organomegaly.no flank tenderness SKIN: No rash, no excessive bruising, petechiae, or purpura. NEUROLOGIC: Cranial nerves II-XII intact without motor/sensory deficit. Psych: normal affect Objective Data Labs 04/27/24 06:47 04/27/24 06:47 Labs: Laboratory Results - last 24 hr 04/26/24 04/26/24 04/27/24 17:19 23:32 06:24 WBC RBC Hgb Hct MCV MCH MCHC RDW Plt Count MPV Immature Gran % (Auto) Neut % (Auto) Lymph % (Auto) [place] % (Auto) Eos % (Auto) Baso % (Auto) Lymph # (Auto) [place] # (Auto) Eos # (Auto) Baso # (Auto) Abs Immat Gran (auto) Absolute Neuts (auto) Absolute Nucleated RBC Nucleated RBC % (auto) Sodium Potassium Chloride Carbon Dioxide Anion Gap BUN Creatinine Estim Creat Clear Calc Estimated GFR POC Glucose 137 H 134 H 120 H Random Glucose Calcium Total Bilirubin AST ALT Alkaline Phosphatase Total Protein Albumin 04/27/24 04/27/24 04/27/24 06:47 07:20 11:03 WBC 2.8 L RBC 3.33 L Hgb 11.8 L Hct 34.2 L MCV 102.7 H MCH 35.4 H MCHC 34.5 RDW 15.6 Plt Count 54 L MPV 11.4 Immature Gran % (Auto) 0.0 Neut % (Auto) 48.6 Lymph % (Auto) 35.8 [place] % (Auto) 10.3 Eos % (Auto) 4.6 H Baso % (Auto) 0.7 Lymph # (Auto) 1.0 L [place] # (Auto) 0.3 Eos # (Auto) 0.1 Baso # (Auto) 0.0 Abs Immat Gran (auto) 0.00 Absolute Neuts (auto) 1.4 L Absolute Nucleated RBC 0.000 Nucleated RBC % (auto) 0.0 Sodium 138 Potassium 4.1 Chloride 108 Carbon Dioxide 25 Anion Gap 9 L BUN 10 Creatinine 0.59 Estim Creat Clear Calc 185.4 Estimated GFR > 60 POC Glucose 120 H 122 H Random Glucose 117 H Calcium 7.9 L Total Bilirubin 3.4 H AST 148 H ALT 55 H Alkaline Phosphatase 106 Total Protein 7.1 Albumin 2.6 L 04/27/24 11:19 WBC RBC Hgb Hct MCV MCH MCHC RDW Plt Count MPV Immature Gran % (Auto) Neut % (Auto) Lymph % (Auto) [place] % (Auto) Eos % (Auto) Baso % (Auto) Lymph # (Auto) [place] # (Auto) Eos # (Auto) Baso # (Auto) Abs Immat Gran (auto) Absolute Neuts (auto) Absolute Nucleated RBC Nucleated RBC % (auto) Sodium Potassium Chloride Carbon Dioxide Anion Gap BUN Creatinine Estim Creat Clear Calc Estimated GFR POC Glucose 120 H Random Glucose Calcium Total Bilirubin AST ALT Alkaline Phosphatase Total Protein Albumin Procedures Date of Service Date of Service: 04/27/24 Progress Note: A&P Assessment and plan (1) Acute GI bleeding: Status: Acute Plan 1/ Melena with stable HGB, may be mucosal bleeding or alcoholic gastritis PLAN: 1/ EGD for assessment 2/ cont with PPI meantime Time Spent With Patient Time: Total time managing care of this patient today ____ minutes. Quality Stroke Does the patient have a stroke diagnosis?: No VTE Prior VTE?: No VTE Risk Level:: Medical - moderate - high VTE Device Contraindication: N/A - Device Ordered VTE Drug Contraindication: Treatment Not Indicated
--- NOTE | 2024-04-27 12:56 | MHC.SHP ---
Pre-Procedural Eval Section A - 24 Hr Update-Section A only Date of Service: 04/27/24 The patient is an INPATIENT: Yes The patient has been examined within 24 hours of the surgical procedure. The History & Physical has been completed within 30 days and I have reviewed it.: Yes Section B - Complete if H&P > 30 days Chief Complaint: GI Bleed, ?COVID Allergies: Allergies Allergy/AdvReac Type Severity Reaction Status Date / Time ranitidine [From ZANTAC] Allergy Severe DIFFICULTY Verified 04/25/24 14:01 BREATHING, ITCHING Plan Diagnosis/Plan: Unchanged I have reviewed the history and physical and performed a pertinent physical examination on my patient. No changes have occurred unless specified. Time Spent With Patient Time: Total time managing care of this patient today ____ minutes.
--- NOTE | 2024-04-27 13:03 | MHC.CM.PN ---
PER MD ROUNDS PATIENT NOT MEDICALLY CLEARED FOR DC. CM WILL CONTINUE TO FOLLOW.
--- NOTE | 2024-04-27 13:04 | HO.ANESPROP2 ---
[facility] Active Problems Active Problems: All Active Problems Obesity (BMI 30-39.9) (Acute) URI, acute (Acute) Acute GI bleeding (Acute) Screening for colon cancer (Acute) HTN (hypertension) (Acute) Gallstones (Acute) Liver lesion (Acute) Erectile dysfunction associated with type 2 diabetes mellitus (Acute) Hyperplastic polyp of stomach (Acute) Chronic epigastric pain (Acute) BPH w urinary obs/LUTS (Acute) OLIVER on CPAP (Acute) GERD (gastroesophageal reflux disease) (Acute) Fatty liver (Acute) Diabetes (Acute) Chronic back pain (Acute) Arthritis (Acute) Cirrhosis (Acute) Past Medical History Medical History Morbid obesity Gross hematuria Lipoma of neck On beta alma at home History of tachycardia Subcutaneous mass of neck Obesity Hx of gastritis History of anxiety History of depression COVID-19 Colitis Gallstones Asthma HTN (hypertension) Fatty liver Dysuria Arthritis Diabetes GERD (gastroesophageal reflux disease) OLIVER on CPAP Chronic back pain Cirrhosis Functional capacity: independent ambulation Family History Family History Father No problems noted. Mother HTN (hypertension) Sister Type II diabetes mellitus Family history of problems with anesthesia: No Surgical History Surgical History Hx of elbow surgery S/P cubital tunnel release History of esophagogastroduodenoscopy (EGD) History of left knee surgery History of Problems with Anesthesia: No Social History Social History Household Members: Family Housing: House Are you a primary animal care supervisor to a significant other at home: No Do you presently have visiting nurse or other home services: No Alcohol intake: current Alcohol intake frequency: holidays/special occasions only Alcohol type: beer Patient Tobacco Use Status: Current someday Tobacco user Tobacco use type: Cigarette e-Cigarette/Vaping Use: Never Used Substance Use Type: Crack/Cocaine service: No Current occupational status: unemployed and disabled Meds Allergies Allergy/AdvReac Type Severity Reaction Status Date / Time ranitidine [From ZANTAC] Allergy Severe DIFFICULTY Verified 04/25/24 14:01 BREATHING, ITCHING Active Medications: Current Medications Acetaminophen (Acetaminophen 325 Mg Tablet) 650 mg PO Q6H PRN PRN Reason: Pain, Mild 1-3,fever,headache Last Admin: 04/26/24 10:27 Dose: 650 mg Atorvastatin Calcium (Atorvastatin Calcium 10 Mg Tablet) 10 mg PO BEDTIME [facility] Last Admin: 04/26/24 21:07 Dose: 10 mg Benzonatate (Benzonatate 100 Mg Capsule) 100 mg PO TID PRN PRN Reason: Cough Last Admin: 04/26/24 04:49 Dose: 100 mg Calcium Carbonate (Calcium Carbonate 750 Mg Tab.Chew) 750 mg PO Q4H PRN PRN Reason: Heartburn Ceftriaxone Sodium (Ceftriaxone Sodium 1 Gm Vial) 1 gm IVPUSH Q24H [facility] Stop: 05/02/24 21:59 Last Admin: 04/26/24 21:16 Dose: 1 gm Dextrose (Dextrose 50 % 25 Gm/50 Ml Syringe) 25 gm IVPUSH Q15M PRN; Protocol PRN Reason: per Hypoglycemia Standing Ord. Fluticasone Propionate (Fluticasone Propionate Nasal 16 Gm [place]) 1 spray NOSTRIL-B DAILY [facility] Last Admin: 04/27/24 08:16 Dose: Not Given Glucose (Glucose Gel 15 Gm Gel..Gram.) 15 gm PO Q15M PRN; Protocol PRN Reason: per Hypoglycemia Standing Ord. Hydrochlorothiazide (Hydrochlorothiazide 25 Mg Tablet) 12.5 mg PO DAILY [facility] Last Admin: 04/27/24 08:15 Dose: 12.5 mg Octreotide Acetate 500 mcg/ (Sodium Chloride) 501 mls @ 25.05 mls/hr IVCONT .Q20H [facility] Last Admin: 04/26/24 21:07 Dose: 25 mcg/hr, 25.05 mls/hr Insulin Human Lispro (Insulin Lispro 100 Unit/Ml 3 Ml Vial) 0 unit SUBCUT Q6H [facility]; Protocol Last Admin: 04/27/24 11:24 Dose: Not Given Lidocaine (Lidocaine 4 % Patch Adh..Patch) 1 patch TRANSDERMA DAILY PRN PRN Reason: Pain Loratadine (Loratadine 10 Mg Tablet) 10 mg PO BEDTIME [facility] Last Admin: 04/26/24 21:07 Dose: 10 mg Magnesium Hydroxide (Milk Of Magnesia 30 Ml Oral.Susp) 30 ml PO DAILY PRN PRN Reason: Constipation Melatonin (Melatonin 3 Mg Tablet) 6 mg PO BEDTIME PRN PRN Reason: Insomnia Metoprolol Succinate (Metoprolol Succinate Er 50 Mg Tab.Er.24h) 50 mg PO DAILY [facility]; Protocol Last Admin: 04/27/24 08:15 Dose: 50 mg Multivitamins/Vitamin C (Multivitamin Tablet) 1 tab PO DAILY [facility] Last Admin: 04/27/24 08:15 Dose: 1 tab Naloxone HCl (Naloxone Hcl 0.4 Mg/Ml Vial) 0.04 mg IVPUSH Q5M PRN PRN Reason: Excessive sedation or RR < 8 Ondansetron HCl (Ondansetron Hcl 4 Mg/2 Ml Vial) 4 mg IVPUSH Q8H PRN PRN Reason: Nausea and Vomiting Last Admin: 04/26/24 04:51 Dose: 4 mg Pantoprazole Sodium (Pantoprazole Sodium 40 Mg/10 Ml Vial) 40 mg IVPUSH BID@0630,1630 [facility] Last Admin: 04/27/24 06:02 Dose: 40 mg Sodium Chloride (0.9 % Sodium Chloride Flush 3 Ml Syringe) 3 ml IVFLUSH QSHIFT [facility] Last Admin: 04/27/24 08:16 Dose: Not Given Tamsulosin HCl (Tamsulosin Hcl 0.4 Mg Capsule) 0.4 mg PO DAILY [facility] Last Admin: 04/27/24 08:15 Dose: 0.4 mg Vitamin D (Cholecalciferol (Vitamin D3) 25 Mcg Tablet) 50 mcg PO DAILY [facility] Last Admin: 04/27/24 08:15 Dose: 50 mcg Home Medications ?Medication ?Instructions ?Recorded ?Confirmed ?Last Taken ?Type lancets 33 gauge (TRUEplus Lancets) #100 ea 11/15/19 03/17/22 Unknown History pen needle, diabetic 32 gauge x #50 ea 11/15/19 03/17/22 Unknown History (Unifine Pentips) blood sugar diagnostic (FreeStyle #10 ea 05/03/21 03/17/22 Unknown History Lite Strips) cetirizine 10 mg tablet 10 mg PO BEDTIME 08/09/21 04/26/24 04/25/24 History fluticasone propionate 50 1 spray intranasal DAILY 08/09/21 04/26/24 04/25/24 History mcg/actuation nasal spray,suspension lidocaine 5 % topical patch 1 patch topical DAILY PRN Pain 08/09/21 04/26/24 Unknown History (Lidoderm) metoprolol succinate 50 mg 50 mg PO DAILY 08/09/21 04/26/24 04/25/24 History tablet,extended release 24 hr montelukast 10 mg tablet 10 mg PO BEDTIME PRN Allergy 03/17/22 04/26/24 Unknown History Symptoms chlorthalidone 25 mg tablet 12.5 mg PO DAILY 11/17/22 04/26/24 04/25/24 History cholecalciferol (vitamin D3) 50 50 mcg PO DAILY 04/26/24 04/26/24 04/25/24 History mcg (2,000 unit) capsule (Vitamin D3) dexlansoprazole 60 mg 60 mg PO DAILY 04/26/24 04/26/24 04/25/24 History capsule,biphase delayed release (Dexilant) multivitamin 1 tab PO DAILY 04/26/24 04/26/24 04/25/24 History rosuvastatin 5 mg tablet 5 mg PO DAILY 04/26/24 04/26/24 04/25/24 History Exam Height,Weight and Vital Signs: Height 5 ft 9 in Weight 108 kg Last Vital Signs Temp 98.2 F 04/27/24 11:16 Pulse 58 04/27/24 11:16 Resp 16 04/27/24 11:16 BP 130/76 04/27/24 11:16 Pulse Ox 98 04/27/24 11:16 O2 Del Method Room Air 04/27/24 11:16 Pertinent Lab Results Pertinent Lab Results: Laboratory Tests 04/25/24 04/25/24 04/25/24 14:27 17:14 18:48 WBC 5.1 RBC 3.69 L Hgb 13.3 L Hct 37.5 L MCV 101.6 H MCH 36.0 H MCHC 35.5 RDW 16.3 H Plt Count 66 L MPV 11.7 Immature Gran % (Auto) 0.2 Neut % (Auto) 56.2 Lymph % (Auto) 31.8 [place] % (Auto) 9.6 Eos % (Auto) 1.8 Baso % (Auto) 0.4 Lymph # (Auto) 1.6 [place] # (Auto) 0.5 Eos # (Auto) 0.1 Baso # (Auto) 0.0 Abs Immat Gran (auto) 0.01 Absolute Neuts (auto) 2.9 Absolute Nucleated RBC 0.000 Nucleated RBC % (auto) 0.0 PT 16.4 H INR 1.4 H Sodium 143 Potassium 4.0 Chloride 115 H Carbon Dioxide 23 Anion Gap 9 L BUN 8 L Creatinine 0.52 Estim Creat Clear Calc 210.3 Estimated GFR > 60 POC Glucose Random Glucose 149 H Estimat Average Glucose 108 Hemoglobin A1c % 5.4 Calcium 8.1 L Magnesium 1.8 Total Bilirubin 1.8 H AST 109 H ALT 46 H Alkaline Phosphatase 130 H Troponin I High Sens 2.8 D Total Protein 7.9 Albumin 2.9 L Urine Color Dark Yellow Urine Appearance Clear Urine pH 7.5 Ur Specific [place] 1.020 Urine Protein Negative Urine Glucose (UA) Negative Urine Ketones Trace Urine Blood Negative Urine Nitrite Negative Ur Leukocyte Esterase Negative Gastric Occult Blood POSITIVE Stool Occult Blood POSITIVE Influenza Type A (PCR) NEGATIVE Influenza Type B (PCR) NEGATIVE RSV RNA Qual (PCR) NEGATIVE SARS-CoV-2 RNA (RT-PCR) NEGATIVE 04/25/24 04/26/24 04/26/24 23:41 05:08 06:28 WBC 3.9 L RBC 3.39 L Hgb 12.2 L Hct 35.2 L MCV 103.8 H MCH 36.0 H MCHC 34.7 RDW 15.9 Plt Count 55 L MPV 10.7 Immature Gran % (Auto) 0.0 Neut % (Auto) 54.0 Lymph % (Auto) 31.2 [place] % (Auto) 11.4 H Eos % (Auto) 2.6 Baso % (Auto) 0.8 Lymph # (Auto) 1.2 [place] # (Auto) 0.4 Eos # (Auto) 0.1 Baso # (Auto) 0.0 Abs Immat Gran (auto) 0.00 Absolute Neuts (auto) 2.1 Absolute Nucleated RBC 0.000 Nucleated RBC % (auto) 0.0 PT INR Sodium 141 Potassium 4.3 Chloride 113 H Carbon Dioxide 25 Anion Gap 7 L BUN 10 Creatinine 0.60 Estim Creat Clear Calc 182.3 Estimated GFR > 60 POC Glucose 113 119 H Random Glucose 122 H Estimat Average Glucose Hemoglobin A1c % Calcium 8.0 L Magnesium Total Bilirubin 2.3 H AST 81 H ALT 35 Alkaline Phosphatase 114 Troponin I High Sens Total Protein 7.2 Albumin 2.6 L Urine Color Urine Appearance Urine pH Ur Specific [place] Urine Protein Urine Glucose (UA) Urine Ketones Urine Blood Urine Nitrite Ur Leukocyte Esterase Gastric Occult Blood Stool Occult Blood Influenza Type A (PCR) Influenza Type B (PCR) RSV RNA Qual (PCR) SARS-CoV-2 RNA (RT-PCR) 04/26/24 04/26/24 04/26/24 11:15 17:19 23:32 WBC RBC Hgb Hct MCV MCH MCHC RDW Plt Count MPV Immature Gran % (Auto) Neut % (Auto) Lymph % (Auto) [place] % (Auto) Eos % (Auto) Baso % (Auto) Lymph # (Auto) [place] # (Auto) Eos # (Auto) Baso # (Auto) Abs Immat Gran (auto) Absolute Neuts (auto) Absolute Nucleated RBC Nucleated RBC % (auto) PT INR Sodium Potassium Chloride Carbon Dioxide Anion Gap BUN Creatinine Estim Creat Clear Calc Estimated GFR POC Glucose 99 137 H 134 H Random Glucose Estimat Average Glucose Hemoglobin A1c % Calcium Magnesium Total Bilirubin AST ALT Alkaline Phosphatase Troponin I High Sens Total Protein Albumin Urine Color Urine Appearance Urine pH Ur Specific [place] Urine Protein Urine Glucose (UA) Urine Ketones Urine Blood Urine Nitrite Ur Leukocyte Esterase Gastric Occult Blood Stool Occult Blood Influenza Type A (PCR) Influenza Type B (PCR) RSV RNA Qual (PCR) SARS-CoV-2 RNA (RT-PCR) 04/27/24 04/27/24 04/27/24 06:24 06:47 07:20 WBC 2.8 L RBC 3.33 L Hgb 11.8 L Hct 34.2 L MCV 102.7 H MCH 35.4 H MCHC 34.5 RDW 15.6 Plt Count 54 L MPV 11.4 Immature Gran % (Auto) 0.0 Neut % (Auto) 48.6 Lymph % (Auto) 35.8 [place] % (Auto) 10.3 Eos % (Auto) 4.6 H Baso % (Auto) 0.7 Lymph # (Auto) 1.0 L [place] # (Auto) 0.3 Eos # (Auto) 0.1 Baso # (Auto) 0.0 Abs Immat Gran (auto) 0.00 Absolute Neuts (auto) 1.4 L Absolute Nucleated RBC 0.000 Nucleated RBC % (auto) 0.0 PT INR Sodium 138 Potassium 4.1 Chloride 108 Carbon Dioxide 25 Anion Gap 9 L BUN 10 Creatinine 0.59 Estim Creat Clear Calc 185.4 Estimated GFR > 60 POC Glucose 120 H 120 H Random Glucose 117 H Estimat Average Glucose Hemoglobin A1c % Calcium 7.9 L Magnesium Total Bilirubin 3.4 H AST 148 H ALT 55 H Alkaline Phosphatase 106 Troponin I High Sens Total Protein 7.1 Albumin 2.6 L Urine Color Urine Appearance Urine pH Ur Specific [place] Urine Protein Urine Glucose (UA) Urine Ketones Urine Blood Urine Nitrite Ur Leukocyte Esterase Gastric Occult Blood Stool Occult Blood Influenza Type A (PCR) Influenza Type B (PCR) RSV RNA Qual (PCR) SARS-CoV-2 RNA (RT-PCR) 04/27/24 04/27/24 11:03 11:19 WBC RBC Hgb Hct MCV MCH MCHC RDW Plt Count MPV Immature Gran % (Auto) Neut % (Auto) Lymph % (Auto) [place] % (Auto) Eos % (Auto) Baso % (Auto) Lymph # (Auto) [place] # (Auto) Eos # (Auto) Baso # (Auto) Abs Immat Gran (auto) Absolute Neuts (auto) Absolute Nucleated RBC Nucleated RBC % (auto) PT INR Sodium Potassium Chloride Carbon Dioxide Anion Gap BUN Creatinine Estim Creat Clear Calc Estimated GFR POC Glucose 122 H 120 H Random Glucose Estimat Average Glucose Hemoglobin A1c % Calcium Magnesium Total Bilirubin AST ALT Alkaline Phosphatase Troponin I High Sens Total Protein Albumin Urine Color Urine Appearance Urine pH Ur Specific [place] Urine Protein Urine Glucose (UA) Urine Ketones Urine Blood Urine Nitrite Ur Leukocyte Esterase Gastric Occult Blood Stool Occult Blood Influenza Type A (PCR) Influenza Type B (PCR) RSV RNA Qual (PCR) SARS-CoV-2 RNA (RT-PCR) Airway Mallampati Class: II (broken tooth top left) TM Dist: >3cm Neck ROM: Full Heart: rrr Lungs: cta Assessment and Plan Assessment Anesthesia Assessment: Anesthesia Plan Discussed and Chart Reviewed Final Anesthetic Review Family History of Problems with Anesthesia: No History of Problems with Anesthesia: No NPO: Yes ASA Class: III Final Preanesthetic Review: No Changes in Pt Med Stat, Meds/Allgs Chart Reviewed and Consent Obtained/Reviewed Patient Risk: Intermediate Procedure Risk: Intermediate Anesthetic Plan Anesthetic Plan: MAC: Disposition: Standard PACU
--- NOTE | 2024-04-27 13:59 | W.PM.OPN ---
Operative Note Operative Note Date of Service: 04/27/24 Narrative: Procedure Description: EGD Indication: melena Anesthesia: MAC FLEXIBLE TRANSORAL UPPER GASTROINTESTINAL ENDOSCOPY UPPER ENDOSCOPY Consent: Indications for the procedure and potential complications of bleeding, perforation, reaction to medications and missed diagnosis were discussed with the patient and informed consent was obtained. Instrument: Olympus GIF H 190 J mid size upper endoscope Monitoring: Vital signs and clinical assessment, continuous EKG monitoring, Pulse oximetry, Carbon Dioxide monitoring and blood pressure monitoring were done throughout the procedure. Procedure: The patient was placed in the left lateral decubitis position and pre-procedure medications were administered and a bite block was placed. The endoscope was inserted into the mouth and advanced under direct vision to the third part of duodenum. A careful inspection was made as the upper endoscope was withdrawn including a retroflexed examination of the proximal stomach; Findings and interventions are described below. Findings: Larynx:normal Esophagus: GE junction at 40 cm, diaphragm hiatus at 40 cm, x 3 large varices with red mobley noted, no active bleeding, 4 bands were applied with good collapse Stomach: retained food noted with portal hypertensive gastropathy . Biopsies were obtained. Grade 2 flap valve on retroflexed examination of the cardia. Duodenum: Normal bulb and descending duodenum, Intervention: Banding of varices Impression/Findings: esophageal varices portal hypertensive gastropathy PLAN: keep on BID pantoprazole 40 mg PO or IV can use carafate for 1 week cont octreotide for 48 hrs ceftriaxone 1 g PO Od for 1 week rept EGD in 2-4 weeks GERD precautions clears today and advance tomorrow as tolerated outpatient triple phase CT
[2024-04-27 15:28] LABS: Glucose, Whole Blood 103 mg/dL (60-115)
[2024-04-27] MEDS: Octreotide Acetate 500 MCG in 0.9 % Sodium Chloride 500 ML 25.05 MCG IVCONT (16:58)
[2024-04-27 19:34] LABS: Glucose, Whole Blood 196 mg/dL (60-115)
[2024-04-27] MEDS: Insulin Lispro 100 UNIT/ML 3 ML VIAL SUBCUT (20:29)
[2024-04-27] MEDS: Atorvastatin Calcium 10 MG TABLET PO (20:30)
[2024-04-27] MEDS: Loratadine 10 MG TABLET PO (20:30)
[2024-04-27] MEDS: cefTRIAXone sodium 1 GM VIAL IVPUSH (22:10)
[2024-04-27] MEDS: 0.9 % Sodium Chloride Flush 3 ML SYRINGE IVFLUSH (22:10)
[2024-04-27] MEDS: Throat Lozenge, Medicated LOZENGE 1 LOZENGE MUCOUS MEM (23:43)
[2024-04-27] MEDS: Acetaminophen 325 MG TABLET 650 MG PO (23:43)
[2024-04-28 03:12] VITALS: BP 147/65; PULSE 65; RESP 18; TEMP 36.6; O2SAT 95
[2024-04-28] MEDS: Omeprazole 40 MG CAPSULE.DR PO (06:15)
[2024-04-28 07:00] LABS: MANUAL DIFF FLAG NO
--- NOTE | 2024-04-28 07:01 | P.CDIM_ITS ---
PROVIDER RESPONSE TEXT: To clarify, the appropriate diagnosis supported by the clinical indicators: Pancytopenia: ruled in QUERY TEXT: PHYSICIAN'S DOCUMENTATION REQUEST Date of Query: 04/26/2024 12:21 PM EDT Patient Name: Christian Tan Admit Date: 04/26/2024 Dear Monty Hudson MD, A review of the medical record indicates additional documentation may be needed. Please review below and update the documentation accordingly. Clinical Indicators: LABS: wbc 3.9 rbc 3.39 L plt 55 L* Hepatic cirrhosis with moderate gastro-hepatic varices and splenomegaly. Based on the above, could you clarify if there is a diagnosis that correlates with the above labs: Pancytopenia possible, suspected, cannot rule out etc. Other specifics Other (explain) Clinically unable to determine (explain) Thank you, Rose Kinney, CCS, CDIS Use of terms such as suspected, likely, concern for, or probable (associated with a specific diagnosi s that is being evaluated, monitored, or treated as if it exists) are acceptable and can be coded in the inpatient se tting, when documented at the time of discharge. Please use your independent medical judgment in providing your response. THIS QUERY IS PART OF THE PERMANENT MEDICAL RECORD
[2024-04-28 07:09] LABS: Basophils Percent Auto 0.4 % (0-2); Eosinophils Absolute Auto 0.2 X10*3/uL (0.0-0.4); Eosinophils Percent Auto 3.2 % (0-4); Hematocrit 37.8 % (42.0-52.0); Hemoglobin 13.2 g/dl (14.0-18.0); Imm Gran Abs Auto 0.01 X10*3/uL (0.00-0.03); Imm Gran Pct Auto 0.2 % (0.0-0.4); Lymphocytes Absolute Auto 1.5 X10*3/uL (1.2-4.9); Lymphocytes Percent Auto 31.1 % (20-40); Mean Corpuscular HGB Conc 34.9 g/dl (31.0-36.0); Mean Corpuscular Hemoglobin 35.7 pg (27.0-33.0); Mean Corpuscular Volume 102.2 fL (80.0-98.0); Mean Platelet Volume 11.6 fL (9.4-12.4); Monocytes Absolute Auto 0.4 X10*3/uL (0.1-1.2); Neutrophils Absolute Auto 2.6 x10*3/uL (2.0-8.3); Neutrophils Percent Auto 56.1 % (45-73); White Blood Count 4.7 X10*3/uL (4.8-10.8)
[2024-04-28 07:15] LABS: Platelet Count 78 X10*3/uL (160-400)
[2024-04-28 07:26] LABS: Alanine Aminotransferase 70 U/L (0-40); Albumin Level 2.8 g/dL (3.5-5.0); Alkaline Phosphatase 123 U/L (39-117); Anion Gap 10 (12-20); Aspartate Amino Transferase 153 U/L (5-37); Bilirubin Total 2.7 mg/dL (0.0-1.0); Blood Urea Nitrogen 9 mg/dL (9-16); Calcium 8.3 mg/dL (8.4-10.2); Carbon Dioxide 26 mmol/L (22-29); Chloride 106 mmol/L (96-108); Creatinine Clr Calc Pharmacy 163.2; Estimated Glomerular Filt Rate > 60; Glucose Random 135 mg/dL (60-115); Potassium 4.4 mmol/L (3.3-5.1); Sodium 138 mmol/L (135-145); Total Protein 7.8 g/dL (6.5-8.0)
[2024-04-28 07:38] VITALS: BP 142/80; PULSE 64; RESP 18; TEMP 36.3; O2SAT 97
[2024-04-28 07:45] LABS: Glucose, Whole Blood 136 mg/dL (60-115)
--- NOTE | 2024-04-28 08:18 | HO.POSTANES ---
Post Anesthesia Evaluation Post Anesthesia Evaluation Date of Service: 04/28/24 Vital Signs: Vital Signs Temp Pulse Resp BP Pulse Ox O2 Del Method 04/28/24 07:38 97.3 F 64 18 142/80 H 97 Room Air 04/28/24 03:12 97.9 F 65 18 147/65 H 95 Room Air 04/27/24 23:22 98.5 F 61 16 123/64 98 Room Air Anesthesia: General Mental Status: Awake Pain Control: Satisfactory Nausea/Vomiting: None Hydration: Adequate Anesthesia-Related Issues: No Anes. Related Issues
[2024-04-28] MEDS: Multivitamin TABLET 1 TAB PO (08:30)
[2024-04-28] MEDS: Cholecalciferol (Vitamin D3) 25 MCG TABLET 50 MCG PO (08:31)
[2024-04-28] MEDS: Metoprolol Succinate ER 50 MG TAB.ER.24H PO (08:31)
[2024-04-28] MEDS: Tamsulosin HCL 0.4 MG CAPSULE PO (08:31)
[2024-04-28] MEDS: hydroCHLOROthiazide 25 MG TABLET 12.5 MG PO (08:42)
[2024-04-28] MEDS: Acetaminophen 325 MG TABLET 650 MG PO (08:42)
[2024-04-28] MEDS: Benzonatate 100 MG CAPSULE PO (08:43)
[2024-04-28] MEDS: Calcium Carbonate 750 MG TAB.CHEW PO (08:43)
[2024-04-28] MEDS: 0.9 % Sodium Chloride Flush 3 ML SYRINGE IVFLUSH (08:53)
--- NOTE | 2024-04-28 11:19 | MHC.CM.PN ---
Patient medically cleared for dc home self care via private transport.
[2024-04-28 11:26] LABS: Glucose, Whole Blood 226 mg/dL (60-115)
[2024-04-28] MEDS: Sucralfate 1 GM TABLET PO (11:26)
[2024-04-28 11:57] VITALS: BP 152/78; PULSE 74; RESP 20; TEMP 36.3; O2SAT 97
[2024-04-28] MEDS: Insulin Lispro 100 UNIT/ML 3 ML VIAL SUBCUT (12:26)
== END 2024-04-28 13:45 | disposition home or self-care (01) ==
LOC: HO.ED 22:08 → HO.EDOVER 23:23 → HO.S3 04-26 15:45
PROVIDERS: Hospitalist; Internal Medicine Gastroenterology; Physician Assistant Medical; Admitting Provider Physician Assistant; Emergency Provider Emergency Medicine; PCP Family Medicine; Visit Provider Internal Medicine
PROC: 0DJ08ZZ Inspection of Upper Intestinal Tract, Via Natural or Artificial Opening Endoscopic (ICD-10-PCS; CPT 43235; principal; 2024-04-27 13:10)
DX: K74.69 Other cirrhosis of liver (principal); I85.11 Secondary esophageal varices with bleeding; D61.818 Other pancytopenia; K76.6 Portal hypertension; D62 Acute posthemorrhagic anemia; K75.81 Nonalcoholic steatohepatitis (NASH); K31.89 Other diseases of stomach and duodenum; G47.33 Obstructive sleep apnea (adult) (pediatric); E11.9 Type 2 diabetes mellitus without complications; F17.210 Nicotine dependence, cigarettes, uncomplicated; I10 Essential (primary) hypertension; E66.9 Obesity, unspecified; Z68.33 Body mass index [BMI] 33.0-33.9, adult; Z71.3 Dietary counseling and surveillance; Z20.822 Contact with and (suspected) exposure to COVID-19; Z71.6 Tobacco abuse counseling; Z79.51 Long term (current) use of inhaled steroids; Z79.899 Other long term (current) drug therapy
CPT/HCPCS: 0241U; 36415; 71046; 74178; 80053; 81003; 82271; 82272; 82947; 83036; 83735; 84484; 85025; 85610; 93005; 94640; 94660; 99285; J0330; J0696; J1885; J2003; J2250; J2354; J2405; J2470; J2704; J3010; J7120; Q9967

== ENCOUNTER → 2024-04-25 14:00 | Outpatient (BNV) | payer MEDICAID, SELFPAY | PROVIDERS: PCP Family Medicine; Visit Provider Radiology Diagnostic Radiology | DX: K74.60 Unspecified cirrhosis of liver (principal); R16.1 Splenomegaly, not elsewhere classified; U07.1 COVID-19; R06.02 Shortness of breath | CPT/HCPCS: 71046; 74178 ==

== ENCOUNTER → 2024-04-25 14:01 | Outpatient (BNV) | payer MEDICAID, SELFPAY | PROVIDERS: Admitting Provider Physician Assistant; Emergency Provider Emergency Medicine; PCP Family Medicine; Visit Provider Internal Medicine | DX: R06.02 Shortness of breath (principal) | CPT/HCPCS: 93010 ==

== ENCOUNTER → 2024-04-25 23:16 | Outpatient (BNV) | payer MEDICAID, SELFPAY | PROVIDERS: Admitting Provider Physician Assistant; Emergency Provider Emergency Medicine; PCP Family Medicine; Visit Provider Internal Medicine Gastroenterology | DX: K92.2 Gastrointestinal hemorrhage, unspecified (principal) | CPT/HCPCS: 99223 ==

== ENCOUNTER → 2024-04-25 23:16 | Outpatient (BNV) | payer MEDICAID, SELFPAY | PROVIDERS: Admitting Provider Physician Assistant; Emergency Provider Emergency Medicine; PCP Family Medicine; Visit Provider Physician Assistant | DX: K92.2 Gastrointestinal hemorrhage, unspecified (principal); K74.69 Other cirrhosis of liver; J06.9 Acute upper respiratory infection, unspecified; E66.9 Obesity, unspecified | CPT/HCPCS: 99223; 99233 ==

== ENCOUNTER 2024-05-02 09:42 | Outpatient (REF) | payer MEDICAID, SELFPAY ==
--- NOTE | ~2024-05-02 | XR_ITS ---
EXAMINATION: XR KNEE 3 VIEWS RIGHT HISTORY: Z98.890 - Other specified postprocedural states COMPARISON: There are no prior studies available for comparison. FINDINGS: Standing AP views of both knees and additional lateral and sunrise patellar views of the right knee are submitted. Osseous mineralization is normal. There is no fracture or dislocation. There is moderate narrowing of the medial compartment. There is chondrocalcinosis. There is no joint effusion. Incidental note is made of an intramedullary marizol in the left tibia. XR/XR knee RT 3V IMPRESSION: Moderate narrowing of the medial compartment. Electronically signed by: Gaurang Sánchez MD 05/02/2024 02:48 PM EDT
== END 2024-05-02 09:43 | disposition home or self-care (01) ==
LOC: HO.HOSX 09:42
PROVIDERS: Visit Provider Orthopaedic Surgery
DX: M25.569 Pain in unspecified knee (principal); Z98.890 Other specified postprocedural states
CPT/HCPCS: 73562; 99202

== ENCOUNTER 2024-05-02 10:56 | Outpatient (AMB) | payer MEDICAID, SELFPAY ==
--- NOTE | 2024-05-02 11:01 | A.OFFVIS_ITS ---
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 Patient reports that he feels that there is a protruding bone at the tibial plateau. He has pain while walking and at night while trying to sleep. The knee gives out frequently causing multiple falls and numbness and tingling is felt occasionally. No history of injection or PT. 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 Patient reports that he feels that there is a protruding bone at the tibial plateau. He has pain while walking and at night while trying to sleep. The knee gives out frequently causing multiple falls and numbness and tingling is felt occasionally. This has been going on now for several years. [facility] Medical History Morbid obesity Gross hematuria Lipoma of neck On beta alma at home History of tachycardia Subcutaneous mass of neck Obesity Hx of gastritis History of anxiety History of depression COVID-19 Colitis Gallstones Asthma HTN (hypertension) Fatty liver Dysuria Arthritis Diabetes GERD (gastroesophageal reflux disease) OLIVER on CPAP Chronic back pain Cirrhosis Surgical History Hx of elbow surgery S/P cubital tunnel release History of esophagogastroduodenoscopy (EGD) History of left knee surgery Family History Father No problems noted. Mother HTN (hypertension) Sister Type II diabetes mellitus Social History Household Members: Family Housing: House Are you a primary career discovery teacher to a significant other at home: No Do you presently have visiting nurse or other home services: No Alcohol intake: current Alcohol intake frequency: holidays/special occasions only Alcohol type: beer Patient Tobacco Use Status: Current someday Tobacco user Tobacco use type: Cigarette e-Cigarette/Vaping Use: Never Used Substance Use Type: Crack/Cocaine service: No Current occupational status: unemployed and disabled Physical Exam Extrem Other: Medial joint line tenderness right knee. Prominent firm area over the medial joint line that likely represents a parameniscal cyst versus effusion Positive Letty's medially on the right Results Reviewed Results Reviewed: I personally reviewed relevant radiographs. Mild medial compartment osteoarthritis right knee otherwise unremarkable right knee radiographs Assessment & Plan Assessment & Plan (1) Internal derangement of right knee: Code(s): M23.91 - Unspecified internal derangement of right knee Category: Medical Plan: 49-year-old gentleman with clear symptoms of internal derangement of the right knee that have been present for over a year. He has not improved with home exercises and undercut pain medication. He is diabetic and does not want to injections. I think it is reasonable to obtain an MRI of his right knee. This was ordered. Of note he did have a left knee arthroscopy for medial meniscus tear proximally 7 years ago. Notes that this feels very similar to that. Orders: Orders MR knee RT wo con Today M23.91 - Unspecified internal derangement of right knee XR knee LT 1V Today M25.569 - Pain in unspecified knee Coding Level of Care Code New Pt Level 3 (46349) Diagnoses Internal derangement of right knee M23.91
== END 2024-05-02 11:31 | disposition home or self-care (01) ==
LOC: HO.HOS 10:57
PROVIDERS: PCP Family Medicine; Visit Provider Orthopaedic Surgery
DX: M23.91 Unspecified internal derangement of right knee (principal)
CPT/HCPCS: 99203

== ENCOUNTER → 2024-05-02 10:58 | Outpatient (BNV) | payer MEDICAID, SELFPAY | PROVIDERS: Visit Provider Radiology Diagnostic Radiology | DX: M25.561 Pain in right knee (principal) | CPT/HCPCS: 73562 ==

== ENCOUNTER 2024-08-29 15:16 | Outpatient (REF) | payer MEDICAID, SELFPAY ==
--- NOTE | ~2024-08-29 | CT_ITS ---
EXAMINATION: CT ABDOMEN WITH CONTRAST CLINICAL INFORMATION: K74.69 - Other cirrhosis of liver COMPARISON: April 25, 2024 DLP: 429 mGY*cm TECHNIQUE: Contiguous axial thin section helical images of the abdomen were performed following the administration of 85 mL mL of Omnipaque 350 intravenous contrast. The data set was reformatted in the coronal and sagittal planes and reviewed on an independent workstation. This CT examination was performed using dose optimization techniques as appropriate, variously including the following: *Automated exposure control *Adjustment of mA and/or kV according to patient size (this includes techniques or standardized protocols for targeted exams where dose is matched to indication/reason for exam; i.e. extremities or head) *Use of iterative reconstruction technique FINDINGS: LUNG BASES: Clear LIVER, GALLBLADDER, AND BILIARY TREE: The liver has a nodular scalloped margin, as previous described. There is atrophy, more pronounced in the left hepatic lobe. No hyperenhancing lesions are identified. There is recanalization of the umbilical vein. There are up hill esophageal varicosities posterior to the distal esophagus. Right and left portal veins are patent. Contrast is also seen in the right, middle, and left hepatic veins. There is trace ascites and teja mesentery. There is gallbladder wall thickening and pericholecystic fluid. There are 3 calcified stones visible gallbladder. PANCREAS: Unremarkable SPLEEN: 18.5 cm, previously 17.9 cm. ADRENAL GLANDS AND KIDNEYS: 8 mm fat density mass in the superior left kidney is consistent with a small angiomyolipoma. Kidneys are otherwise unremarkable. BOWEL LOOPS: Unremarkable LYMPH NODES: No adenopathy. VASCULAR: Unremarkable, aside from vessels in the liver section. BONES: Moderate to severe multilevel degenerative disc disease and facet arthropathy is again noted in thoracolumbar spine with anterior bridging osteophytes CT/CT abdomen w IV con IMPRESSION: Cirrhosis with probable portal hypertension. There is a recanalized umbilical vein and up hill esophageal varicosities. Splenomegaly is probably mildly increased Cholelithiasis. Gallbladder wall thickening and pericholecystic fluid is stable and probably secondary to hypoalbuminemia. Fleischner guidelines were followed. Electronically signed by: Luciano Vera MD 08/29/2024 04:38 PM EDT
[2024-08-29 11:33] LABS: MANUAL DIFF FLAG NO
[2024-08-29 11:41] LABS: Hematocrit 41.6 % (42.0-52.0); Hemoglobin 14.4 g/dl (14.0-18.0); Imm Gran Abs Auto 0.01 X10*3/uL (0.00-0.03); Imm Gran Pct Auto 0.2 % (0.0-0.4); Lymphocytes Absolute Auto 2.2 X10*3/uL (1.2-4.9); Mean Corpuscular HGB Conc 34.6 g/dl (31.0-36.0); Mean Corpuscular Hemoglobin 34.4 pg (27.0-33.0); Mean Corpuscular Volume 99.3 fL (80.0-98.0); NRBC Abs Auto 0.000 X10*3/uL (0.0-0.012); NRBC Pct Auto 0.0 /100WBC (0.0-0.2); Platelet Count 94 X10*3/uL (160-400); Red Blood Count 4.19 X10*6/uL (4.60-5.80); White Blood Count 6.0 X10*3/uL (4.8-10.8)
[2024-08-29 11:53] LABS: INTERNATIONAL NORM RATIO 1.4 (0.9-1.1); Prothrombin Time 16.3 SEC (10.9-12.4)
[2024-08-29 12:12] LABS: Alanine Aminotransferase 50 U/L (0-40); Albumin Level 2.9 g/dL (3.5-5.0); Alkaline Phosphatase 158 U/L (39-117); Anion Gap 11 (12-20); Aspartate Amino Transferase 100 U/L (5-37); Blood Urea Nitrogen 9 mg/dL (9-16); Calcium 8.3 mg/dL (8.4-10.2); Carbon Dioxide 25 mmol/L (22-29); Chloride 108 mmol/L (96-108); Cholesterol 182 mg/dL (<200); Estimated Glomerular Filt Rate > 60; HDL Cholesterol 50 mg/dL (>40); Potassium 3.6 mmol/L (3.3-5.1); Sodium 140 mmol/L (135-145); Total Protein 7.8 g/dL (6.5-8.0); Triglycerides 81 mg/dL (<150)
[2024-08-29 12:15] LABS: Prostate Specific Antigen 0.19 ng/mL (<0.05-4.0)
[2024-08-29 12:28] LABS: Microalbum/Creatinine Ratio Ur 6.3 ug/mg cr (<30); Syphilis Screen Nonreactive (Nonreactive)
[2024-08-29 12:31] LABS: HBsAGNum1 0.31 S/CO (0.00-0.99); HIV Num 1 0.05 S/CO (0.00-0.99); Hepatitis B Surface Antigen Negative (Negative); ~HepC Num1 0.28 S/CO (0.00-0.79); ~Hepatitis C Antibody Nonreactive (Nonreactive)
[2024-08-29 12:34] LABS: Reflex LDLD? No
[2024-08-29 13:53] LABS: CT PCR Urine NOT DETECTED (Not Detect.); NG PCR Urine NOT DETECTED (Not Detect.)
[2024-08-29] MEDS: iohexoL 350 MG/ML 100 ML INFUS..BTL IV (16:17)
--- OUTSIDE RECORDS SUMMARY | 2024-08-29 16:31 | XMS_ITS | Encounter Summary ---
Author Organization [employer] Address [address] [facility] [address] [address] Care Team Providers Care Medical Pathology Teacher Name Role Phone Hanna Ocasio MD Primary Care Provider [phone] Christian Villagomez PharmD Unavailable [phone] Reason for Visit * Reason Onset Date Comments Med Refill 07/05/2024 Encounter Details Date Type Department Care Team (Late st Contact Info) Description 07/05/2024 Telephone [facility] MEDICINE [address] [place] [address] Hanna Ocasio MD [address] [place], [place] [id number] Med Refill Social History Tobacco Use Types Packs/Day Years Used Date Smoking Tobacco: Some Days Cigarettes 0.3 10 Passive Smoke Exposure: Current Comments:2-3 cigarettes per week Alcohol Use Standard Drinks/Week Comments Yes 0 (1 standard drink = 0.6 oz pur e alcohol) Depression Answer Date Recorded Patient Health Questionnaire-9 Score 17 11/27/2023 Patient Health Questionnaire-9 Score 17 11/27/2023 Last PHQ-9: Questionnaire Data Not on file 1 Housing Stability Answer Date Recorded What is your housing situation today? I have florentino brown 12/01/[address] you li ve. Do you have problems with any of the following? None of the above 12/01/2022 Food Insecurity Answer Date Recorded Within the past 12 months, y ou worried that your food would run out before you got money to buy more: Sometimes True 2023 Within the past 12 months,th e food you bought just didn't last and you didn't have enough money to get more: Sometimes True 05/14/2023 Transportation Answer Date Recorded In the past 12 months, has l ack of transportation kept you from medical appts, meetings, work or from getting things needed for daily living? No 05/14/2023 Utilities Answer Date Recorded In the past 12 months, has t he electric, gas, oil or water company threatened to shut off services in your home? No 12/01/2022 Depression Answer Date Recorded Patient Health Questionnaire-2 Score 4 11/27/2023 Internet Access Answer Date Recorded Internet Access Q1 Yes 02/04/2024 Internet Access Q2 Not on file 02/04/2024 Sex and Gender Information Value Date Recorded Sex Assigned at Male 12/16/2021 10:20 AM EDT Legal Sex Male 10:20 AM EDT Gender Identity Male 12/16/2021 10:20 AM EDT Sexual Orientation Straight 12/16/2021 10 :20 AM EDT documented as of this encounter Miscellaneous Notes * Telephone Encounter - Ángela Faustin LPN - 07/05/2024 12:26 PM EDT Medication requested has refills. * Telephone Encounter - Fausto Pandey - 07/05/2024 11:54 AM EDT TC from pt requesting medication refill. Medications needing refill : Continuous Glucose Sensor (FreeStyle Estela 2 Sensor) misc To be sent to: [facility] pharmacy documented in this encounter Plan of Treatment Not on file documented as of this encounter Goals Goal Patient Goal Type Associated Problems Recent Progress Patient-Stated? Author Blood Pressure < 140/90 Blood Pressure 128/86(2024 3:50 PM EDT) No Christian Villagomez, PharmCatalina Hemoglobin A1c < 7 Result Component 5.8( 3:59 PM EDT) No Christian Villagomez PharmD documented as of this encounter Visit Diagnoses Not on filedocumented in this encounter Additional Health Concerns Assessment Noted Time PHQ-9 Depression Total Score: 17 024 2:27 PM EDT documented as of this encounter Care Teams Medical Pathology Teacher Relationship Specialty Start Date End Date Hanna Ocasio MD [address] [place] [address] PCP - General Family Medicine 02/16/18 Christian Villagomez, KingsleyD [address] [place] [address] Pharmacist Internal Medicine 03/18/22 Jhonathan Engel [employer] CutterWell Driller 05/11/23 documented as of this encounter
== END 2024-08-29 15:17 | disposition home or self-care (01) ==
LOC: HO.CT 15:16
PROVIDERS: Urology; Absent Provider Family Medicine; PCP Family Medicine; Visit Provider Internal Medicine Gastroenterology
DX: K74.69 Other cirrhosis of liver (principal); N40.1 Benign prostatic hyperplasia with lower urinary tract symptoms; N13.8 Other obstructive and reflux uropathy; E78.5 Hyperlipidemia, unspecified; E55.9 Vitamin D deficiency, unspecified; I10 Essential (primary) hypertension; E11.69 Type 2 diabetes mellitus with other specified complication; Z79.4 Long term (current) use of insulin; Z12.5 Encounter for screening for malignant neoplasm of prostate; Z11.4 Encounter for screening for human immunodeficiency virus [HIV]; Z11.3 Encounter for screening for infections with a predominantly sexual mode of transmission
CPT/HCPCS: 36415; 74160; 80048; 80061; 80076; 82043; 82306; 82570; 84153; 84403; 84443; 85025; 85610; 86780; 86803; 87340; 87389; 87491; 87591; Q9967

== ENCOUNTER → 2024-08-29 15:17 | Outpatient (BNV) | payer MEDICAID, SELFPAY | PROVIDERS: Absent Provider Family Medicine; PCP Family Medicine; Visit Provider Radiology Diagnostic Radiology | DX: K74.60 Unspecified cirrhosis of liver (principal); R16.1 Splenomegaly, not elsewhere classified; K80.20 Calculus of gallbladder without cholecystitis without obstruction | CPT/HCPCS: 74160 ==

== ENCOUNTER 2024-09-15 10:02 | Outpatient (AMB) | payer MEDICAID, SELFPAY ==
--- NOTE | 2024-09-15 10:06 | MHC.OFFVIS ---
Intake Visit Reasons: 6 month follow up/ PSA Intake Note: Patient is present for 6M Telehealth Urology Medication:TADALALFIL,TAMSULOSIN Antibiotic Allergy:NONE Blood Thinner:NONE Labs done 08/29/2024: PSA 0.19, Testosterone :451 Concierge Manager Required: No Accompanied by: Self / Same As Patient Allergies ranitidine (From ZANTAC) Allergy (Severe, Verified 09/15/24 10:07) DIFFICULTY BREATHING, ITCHING HPI Comments Details: Christian is a pleasant male. He is a patient of Dr. Cassidy. He seen for the following urologic conditions - erectile dysfunction with insulin-dependent diabetic - Lower Urinary Tract Symptoms Guyanese translation provided by qualified medical office assistant Telemedicine Evaluation 15 min Consultation Narvalous Goyo Video Six-month follow-up Refill tadalafil Confirmed 20 mg on demand with 10 mg daily Continue tamsulosin for urinary symptoms Labs - 09/09 P 0.2, T 450 Erectile dysfunction - Diabetes insulin dependent Currently 10 mg daily with 20 on demand Lower urinary tract symptoms Has been on Flomax with adequate response Still feeling he has hesitancy with urination Had seen blood in his urine needs ultrasound Family history prostate cancer PSA 11/05 0.3, 06/09 0.3 June review at periodic intervals [facility] Medical History Morbid obesity Gross hematuria Lipoma of neck On beta alma at home History of tachycardia Subcutaneous mass of neck Obesity Hx of gastritis History of anxiety History of depression COVID-19 Colitis Gallstones Asthma HTN (hypertension) Fatty liver Dysuria Arthritis Diabetes GERD (gastroesophageal reflux disease) OLIVER on CPAP Chronic back pain Cirrhosis Surgical History Hx of elbow surgery S/P cubital tunnel release History of esophagogastroduodenoscopy (EGD) History of left knee surgery Family History Father No problems noted. Mother HTN (hypertension) Sister Type II diabetes mellitus Social History Household Members: Family Housing: House Are you a primary rn intensive care unit to a significant other at home: No Do you presently have visiting nurse or other home services: No Alcohol intake: current Alcohol intake frequency: holidays/special occasions only Alcohol type: beer Patient Tobacco Use Status: Current someday Tobacco user Tobacco use type: Cigarette e-Cigarette/Vaping Use: Never Used Substance Use Type: Crack/Cocaine service: No Current occupational status: unemployed and disabled Review of Systems Const All systems reviewed & are unremarkable except as noted in HPI and below Reports no additional complaints Resp Reports no additional complaints GI Reports no additional complaints Reports as per HPI Musc Reports no additional complaints Physical Exam Telemedicine evaluation Appropriate responses Regular breathing rate and rhythm HEENT Head: Yes normal to inspection Ears: hearing grossly normal bilaterally Eyes General: appearance normal, both eyes and all related structures Neck Neck: Yes normal visual inspection Chest Chest palpation & inspection: normal inspection of the chest Resp Effort & Inspection: normal respiratory effort and able to speak in complete sentences Telehealth Telehealth Location of provider rendering services: practice address Location of patient: address on file Patient Identification confirmed using: Name, : Yes Telehealth method: voice only Patient verbally consented to treatment: Yes Patient verbally consented to billing insurance company: Yes Patient informed of any privacy concerns related to visit: Yes Assessment & Plan Assessment & Plan (1) Erectile dysfunction associated with type 2 diabetes mellitus: Code(s): E11.69 - Type 2 diabetes mellitus with other specified complication; N52.1 - Erectile dysfunction due to diseases classified elsewhere Category: Medical (2) BPH w urinary obs/LUTS: Code(s): N40.1 - Benign prostatic hyperplasia with lower urinary tract symptoms; N13.8 - Other obstructive and reflux uropathy Category: Medical Plan 6m f/u office Medications: New tadalafil Daily medication - 10 mg PO DAILY 90 tabs 1RF sexual activity 90 days E11.69 - Type 2 diabetes mellitus with other specified complication, N52.1 - Erectile dysfunction due to diseases classified elsewhere Refilled tadalafil On demand medication take 60 minutes before intended activity 20 mg PO ONCE PRN 30 tabs 1RF sexual activity 30 days E11.69 - Type 2 diabetes mellitus with other specified complication, N52.1 - Erectile dysfunction due to diseases classified elsewhere tamsulosin 0.4 mg PO DAILY 90 caps 1RF 90 days N13.8 - Other obstructive and reflux uropathy, N40.1 - Benign prostatic hyperplasia with lower urinary tract symptoms tamsulosin 0.4 mg PO DAILY 90 days 90 caps 1RF N13.8 - Other obstructive and reflux uropathy, N40.1 - Benign prostatic hyperplasia with lower urinary tract symptoms Patient Instructions: This note is constructed using voice recognition software. While every effort has been made to ensure accuracy document photographer errors may have been included. Imaging studies, laboratory and physical exam results were discussed and reviewed in detail. No major barriers to patient understanding were identified. An opportunity to ask questions regarding the treatment plan was provided. All questions were answered. The patient expressed understanding and agreement with the above treatment plan. The patient is aware they should contact our office by phone for worsening of their current condition or the appearance of new urologic symptoms. Compliance is encouraged with any medications and followup testing that is ordered. It is a privilege to participate in the urologic care of your patient. If you have any questions or concerns regarding treatment for the above conditions, or other urologic issues, please do not hesitate to contact me. The office telephone contact is [phone]. Sincerely, Dr Dao Keith MD, [facility] - Urology Compassionate Specialist Care for the Genitourinary System Coding Level of Care Code Tele Est Pt Level 3 (74573) Complex EM visit Add On G2211 Diagnoses Erectile dysfunction associated with type 2 diabetes mellitus E11.69; N52.1 BPH w urinary obs/LUTS N40.1; N13.8
--- OUTSIDE RECORDS SUMMARY | 2024-09-15 10:44 | XMS_ITS | Encounter Summary ---
Author Organization [employer] Address [address] [facility] [address], [place] [address] Care Team Providers Care Fur Cutter Name Role Phone Hanna Ocasio MD Primary Care Provider [phone] Christian Villagomez PharmD Unavailable [phone] Reason for Visit * Reason Onset Date Comments Med Refill 07/05/2024 Encounter Details Date Type Department Care Team (Late st Contact Info) Description 07/05/2024 Telephone [facility] MEDICINE [address] [place] [address] Hanna Ocasio MD [address] [place], [place] [phone] Med Refill Social History Tobacco Use Types [...] Miscellaneous Notes * Telephone Encounter - Ángela Fasutin LPN - 07/05/2024 12:26 PM EDT Medication requested has refills. * Telephone Encounter - Fausto Pandey - 07/05/2024 11:54 AM EDT TC from pt requesting medication refill. Medications needing refill : Continuous Glucose Sensor (FreeStyle Estela 2 Sensor) [facility] To be sent to: [facility] pharmacy documented in this encounter Plan of Treatment Upcoming Encounters Date Type Department Care Team (Late st Contact Info) Description 12/09/2024 3:15 PM EDT Office Visit [facility] MEDICINE [address] [place] [address] Tasha Sargent MD [address] [place] [address] documented as of this encounter Goals Goal Patient Goal Type Associated Problems Recent Progress Patient-Stated? Author Blood Pressure < 140/90 Blood Pressure 128/86(2024 3:50 PM EDT) No Christian Villagomez PharmD Hemoglobin A1c < 7 Result Component 5.8( 3:59 PM EDT) No Christian Villagomez PharmD documented as of this encounter Visit Diagnoses Not on filedocumented in this encounter Additional Health Concerns Assessment Noted Time PHQ-9 Depression Total Score: 17 024 2:27 PM EDT documented as of this encounter Care Teams Fur Cutter Relationship Specialty Start Date End Date Hanna Ocasio MD [address] [place], [place] [phone] PCP - General Family Medicine 02/16/18 Christian Villagomez, KingsleyD [address] [place] [address] Pharmacist Internal Medicine 03/18/22 Jhonathan Engel Family AdvocateOil Paint Shader 05/11/23 documented as of this encounter
== END 2024-09-15 11:08 | disposition home or self-care (01) ==
LOC: HO.HUSH 10:02
PROVIDERS: PCP Family Medicine; Visit Provider Urology
DX: E11.69 Type 2 diabetes mellitus with other specified complication (principal); N52.1 Erectile dysfunction due to diseases classified elsewhere; N40.1 Benign prostatic hyperplasia with lower urinary tract symptoms; N13.8 Other obstructive and reflux uropathy
CPT/HCPCS: 99213

== ENCOUNTER 2024-11-09 10:02 | Outpatient (AMB) | payer MEDICAID, SELFPAY ==
--- NOTE | 2024-11-09 10:07 | MHC.OFFVIS ---
Vital Signs 11/09/24 10:09 Height 5 ft 9 in Weight 240 lb 4.862 oz BMI 35.5 BP 118/72 Blood Pressure Location Rt brachial Position Sitting Pulse 73 Pulse Source Pulse Oximeter Pulse Oximetry (%) 98 Oxygen Delivery Method Room Air Intake Visit Reasons: Gynecomastia Intake Note: NEW Patient presents today to establish care for Gynecomastia: No acute complaints reported at this time: Director Market Intelligence Required: Yes Director Market Intelligence Language: Comptroller Services: Director Market Intelligence Offered & Declined (DR. Chance Speak Fluent Malay) Accompanied by: Significant Other Allergies ranitidine (From ZANTAC) Allergy (Severe, Verified 11/09/24 10:13) DIFFICULTY BREATHING, ITCHING Medication List - Last Reconciled 11/09/24 by Susan Prather MD acetaminophen (Tylenol Extra Strength) 500 mg PO Q6H PRN blood sugar diagnostic (FreeStyle Lite Strips) As directed cetirizine 10 mg PO BEDTIME PRN chlorthalidone 12.5 mg PO DAILY cholecalciferol (vitamin D3) (Vitamin D3) 50 mcg PO DAILY fluticasone propionate 50 mcg/actuation 1 spray intranasal DAILY lancets (TRUEplus Lancets) As directed lidocaine 5% (Lidoderm) 1 patch topical DAILY PRN metoprolol succinate ER 50 mg PO DAILY montelukast 10 mg PO BEDTIME PRN multivitamin 1 tab PO DAILY omeprazole 40 mg PO BID pen needle, diabetic (Unifine Pentips) As directed rosuvastatin 5 mg PO DAILY sucralfate 1 g PO QID tadalafil 20 mg PO ONCE PRN 30 days tadalafil 10 mg PO DAILY 90 days tamsulosin 0.4 mg PO DAILY 90 days HPI Comments Details: The patient is a 49-year-old male with past medical history of hypotension, type 2 diabetes, OLIVER, liver cirrhosis, obesity, presenting with abdominal discomfort and concerns regarding excess skin/ fatty tissue under the breasts following significant weight loss. The patient reports a history of obesity, previously weighing nearly 300 pounds, and has since reduced his weight to approximately 232 pounds. The weight loss began about a year ago, and the patient attributes it to intermittent use of Trulicity injections. The patient describes the discomfort as tenderness in the anterior and lateral chest areas where excess skin and fat have accumulated. This discomfort has been persistent for about a year, affecting his sleep and daily activities. He has not yet undergone any surgical intervention for the removal of excess skin, although a consultation for surgery has been discussed with primary care. Patient is seen for endocrine evaluation of gynecomastia and to rule out possible reversible diagnosis prior to possible surgery. ROS: Reports discomfort and tenderness in the area of excess skin and fat. Reports significant weight loss over the past year after starting Trulicity. Denies galactorrhea tachycardia, chest pain or syncope. Physical exam: General: Well appearing. NAD. Neck/Thyroid: Thyroid not palpable, no nodules. Chest: Pain spontaneous and palpation spontaneous to palpation to lateral chest tissue as well as in the breast area, with some increased in breast tissue and also fat/skin residual tissue after weight loss CV: RRR, no murmur. No edema. Resp:Lungs clear to auscultation bilaterally Abdomen: Soft, nontender. nondistended Extremities/Neuro: No weakness or tremor of outstretched hands Labs: [facility] Medical History Obesity (BMI 30-39.9) Morbid obesity Gross hematuria Lipoma of neck On beta alma at home History of tachycardia Subcutaneous mass of neck Obesity Hx of gastritis History of anxiety History of depression COVID-19 Colitis Gallstones Asthma HTN (hypertension) Fatty liver Dysuria Arthritis Diabetes GERD (gastroesophageal reflux disease) OLIVER on CPAP Chronic back pain Cirrhosis Surgical History Hx of elbow surgery S/P cubital tunnel release History of esophagogastroduodenoscopy (EGD) History of left knee surgery Family History Father No problems noted. Mother HTN (hypertension) Sister Type II diabetes mellitus Social History Household Members: Family Housing: House Are you a primary emergency care attendant to a significant other at home: No Do you presently have visiting nurse or other home services: No Alcohol intake: current Alcohol intake frequency: holidays/special occasions only Alcohol type: beer Patient Tobacco Use Status: Current someday Tobacco user Tobacco use type: Cigarette e-Cigarette/Vaping Use: Never Used Substance Use Type: Crack/Cocaine service: No Current occupational status: unemployed and disabled Physical Exam Vital Signs: Last Vital Signs Pulse 73 11/09/24 10:09 BP 118/72 11/09/24 10:09 Pulse Ox 98 11/09/24 10:09 Oxygen Delivery Method Room Air 11/09/24 10:09 BMI result Body Mass Index 35.5 Assessment & Plan Assessment & Plan (1) Gynecomastia, male: Code(s): N62 - Hypertrophy of breast Category: Medical Plan Patient have residual tissue after significant weight loss which is causing discomfort for with activity and with some clothing. It is possible that the tissue that is residual is not just breast tissue but also skin/fat tissue resulted from weight loss. Patient have normal testosterone and TSH, vitamin more complete workup has not been performed yet. He does not have any obvious evidence of hyperandrogenism, but obesity and liver disease, predispose him to have higher than normal estrogen levels. We will order the labs below for gynecomastia workup for males. Orders: Orders Estrad Free (Tot Ultra + Free) Today N62 - Hypertrophy of breast Follicle Stimulating Hormone Today N62 - Hypertrophy of breast Sex Hormone Binding Globulin Today N62 - Hypertrophy of breast HCG Quantitative Today N62 - Hypertrophy of breast Prolactin Today N62 - Hypertrophy of breast Testosterone, Free/Total Today N62 - Hypertrophy of breast Lutenizing Hormone Today N62 - Hypertrophy of breast Coding Level of Care Code New Pt Level 4 (75068) Diagnoses Gynecomastia, male N62 Time Spent (min) 45 Comment Time spent on review of previous records, history, exam/plan and patient education.
[2024-11-09 10:09] VITALS: BP 118/72; PULSE 73; O2SAT 98; BMI 35.5
--- OUTSIDE RECORDS SUMMARY | 2024-11-09 12:16 | XMS_ITS | Encounter Summary ---
Author Organization [employer] Address [address] [place] [address] Care Team Providers Care Scheduling Coordinator Name Role Phone Hanna Ocasio MD Primary Care Provider [phone] Christian Villagomez PharmD Unavailable [phone] Encounter Details Date Type Department Care Team ([facility] st Contact Info) Description 11/04/2024 Telephone [facility] MEDICINE [address] [place], [place] [phone] Hanna Ocasio MD [address] [place], [place] [phone] Social History Tobacco Use Types Packs/Day Years Used Date Smoking Tobacco: Some Days Cigarettes 0.3 10 Passive Smoke Exposure: Current Comments:2-3 cigarettes per week Alcohol Use Standard Drinks/Week Comments Yes 0 (1 standard drink = 0.6 oz pur e alcohol) Depression Answer Date Recorded Patient Health Questionnaire-9 Score 08/08/2024 Patient Health Questionnaire-9 Score 08/08/2024 Last PHQ-9: Questionnaire Data Not on file 0 08/08/2024 Housing Stability Answer Date Recorded What is [...] Date Recorded Patient Health Questionnaire-2 Score 4 08/08/2024 Internet Access Answer Date Recorded Internet Access [...] encounter Miscellaneous Notes * Telephone Encounter - Terri Theodore RN - 11/04/2024 3:12 PM EDT Call placed to patient to inform of the upcoming visit with Endocrinology- 11/09/24 at 10:00am. No answer. Unable to leave v/m as mailbox is full. documented in this encounter Plan of Treatment Upcoming Encounters Date Type Department Care Team (Late st Contact Info) Description 11/25/2024 3:15 PM EDT Office Visit [facility] MEDICINE [address] [place] [address] Tasha Sargent MD [address] [place] [address] documented as of this encounter Goals Goal Patient Goal Type Associated Problems Recent Progress Patient-Stated? Author Blood Pressure < 140/90 Blood Pressure 128/86(2024 3:50 PM EDT) No Christian Villagomez, PharmCatalina Hemoglobin A1c < 7 Result Component 5.8( 3:59 PM EDT) No Christian Villagomez, Madhavi documented as of this encounter Visit Diagnoses Not on filedocumented in this encounter Additional Health Concerns Assessment Noted Time PHQ-9 Depression Total Score: 08/08/ 025 10:42 AM EDT documented as of this encounter Care Teams Scheduling Coordinator Relationship Specialty Start Date End Date Hanna Ocasio MD [address] [place] [address] PCP - General Family Medicine 02/16/18 Christian Villagomez, KingsleyD [address] [place] [address] Pharmacist Internal Medicine 03/18/22 [facility] ManagerAdult Manager 05/11/23 documented as of this encounter
--- OUTSIDE RECORDS SUMMARY | 2024-11-09 12:16 | XMS_ITS | Encounter Summary ---
Author Organization [employer] Address [address] [facility] [address] 7t [place] [address] Care Team Providers Care Driving School Instructor Name Role Phone Hanna Ocasio MD Primary Care Provider Christian Villagomez PharmD Unavailable [phone] Reason for Visit * Reason Comments Med Refill Encounter Details Date Type Department Care Team ([facility] st Contact Info) Description 11/29/2023 Refill [facility] 230 [place], [place] [phone] Hanna Ocasio MD 230 [place], [place] [phone] Social History Tobacco Use Types Packs/Day Years [...] Recorded Patient Health Questionnaire-2 Score 4 11/27/2023 Sex and Gender Information Value Date Recorded Sex Assigned at Male 12/16/2021 10:20 AM EDT Legal Sex Male 10:20 AM EDT Gender Identity Male 12/16/2021 10:20 AM EDT Sexual Orientation Straight 12/16/2021 10 :20 AM EDT documented as of this encounter Plan of Treatment Upcoming Encounters Date Type Department Care Team (Late st Contact Info) Description 11/25/2024 3:15 PM EDT Office Visit [facility] [address] [place] [address] Tasha Sargent MD [address] [place] [address] documented as of this encounter Goals Goal [...] documented as of this encounter Care Teams Driving School Instructor Relationship Specialty Start Date End Date Hanna Ocasio MD [address] [place] [address] PCP - General Family Medicine 02/16/18 Christian Villagomez PharmD [address] [place] [address] Pharmacist Internal Medicine 03/18/22 Jhonathan Engel Boom Truck DriverLaborer Syrup Machine 05/11/23 documented as of this encounter
--- OUTSIDE RECORDS SUMMARY | 2024-11-09 12:16 | XMS_ITS | Encounter Summary ---
Author Organization [employer] Address [address] [facility] 7t [place] [address] Care Team Providers Care Machine Trimmer Name Role Phone Hanna Ocasio MD Primary Care Provider [phone] Christian Villagomez PharmD Unavailable [phone] Reason for Visit * Reason Comments Med Refill Encounter Details Date Type Department Care Team ([facility] Contact Info) Description 12/29/2023 Refill [facility] 230 [place] [address] La Schmidt MD 230 [place], [place] [phone] Social History Tobacco Use Types Packs/Day Years [...] Description 11/25/2024 3:15 PM EDT Office Visit [facility] MED[facility] [address] [place] [address] Tasha Sargent MD [address] [place] [address] documented as of this encounter Goals Goal [...] documented as of this encounter Care Teams Machine Trimmer Relationship Specialty Start Date End Date Hanna Ocasio MD [address] [place] [address] PCP - General Family Medicine 02/16/18 Christian Villagomez PharmD NPI: [id number] [place] [address] Pharmacist Internal Medicine 03/18/22 Jhonathan Engel Ssis ArchitectLicensed Physical Therapist 05/11/23 documented as of this encounter
--- OUTSIDE RECORDS SUMMARY | 2024-11-09 12:16 | XMS_ITS | Encounter Summary ---
Author Organization [employer] Address [address] [facility] [address] 7t [place] [address] Care Team Providers Care Chemical Applicator Name Role Phone Hanna Ocasio MD Primary Care Provider [phone] Christian Villagomez PharmD Unavailable [phone] Encounter Details Date Type Department Care Team ([facility] st Contact Info) Description 08/30/2024 Orders Only [facility] MED[facility]INE 230 [place], [place] [phone] Hanna Ocasio MD 230 [place], [place] [phone] Social History Tobacco Use Types Packs/Day Years Used Date Smoking Tobacco: Some Days Cigarettes 0.3 10 Passive Smoke Exposure: Current Comments:2-3 cigarettes per week Alcohol Use Standard Drinks/Week Comments Yes 0 (1 standard drink = 0.6 oz pur e alcohol) Depression Answer Date Recorded Patient Health Questionnaire-9 Score 08/08/2024 Patient Health Questionnaire-9 Score 19 08/08/2024 Last PHQ-9: Questionnaire Data Not on [...] Description 11/25/2024 3:15 PM EDT Office Visit [facility] MED[facility] 230 [place] [address] Tasha Sargent MD 230 [place] [address] documented as of this encounter Goals Goal [...] Assessment Noted Time PHQ-9 Depression Total Score: 19 025 10:42 AM EDT documented as of this encounter Care Teams Chemical Applicator Relationship Specialty Start Date End Date Hanna Ocasio MD [address] [place] [address] PCP - General Family Medicine 02/16/18 Christian Villagomez PharmD 230 [place] [address] Pharmacist Internal Medicine 03/18/22 Jhonathan Engel Fitness Studies TeacherSpooling Machine Operator 05/11/23 documented as of this encounter
--- OUTSIDE RECORDS SUMMARY | 2024-11-09 12:16 | XMS_ITS | Encounter Summary ---
Author Organization [employer] Address [address] [facility] [address] 7[address] [place] [address] Care Team Providers Care Manager Portable Name Role Phone Hanna Ocasio MD Primary Care Provider [phone] Christian Villagomez PharmD Unavailable [phone] Encounter Details Date Type Department Care Team (Late st Contact Info) Description 11/26/2022 Orders Only [facility] MED[facility]INE 230 [place], [place] [phone] Hanna Ocasio MD 230 [place] [address] Pain in left leg; Chronic low back pain, unspecified back pain laterality, unspecified whether sciatica present Social History Tobacco Use Types Packs/Day Years Used Date Smoking Tobacco: Some Days Cigarettes 0.3 10 Passive Smoke Exposure: Current Comments:2-3 cigarettes per week Alcohol Use Standard Drinks/Week Comments Yes 0 (1 standard drink = 0.6 oz pur e alcohol) Housing Stability Answer Date Recorded What is your housing situation today? I have florentinojahaira brown 11/24/[address] you li ve. Do you have problems with any of the following? None of the above 11/24/2022 Food Insecurity Answer Date Recorded Within the past 12 months, y ou worried that your food would run out before you got money to buy more: Never True 11/24/2022 Within the past 12 months,th e food you bought just didn't last and you didn't have enough money to get more: Never True 10/2022 Utilities Answer Date Recorded In the past 12 months, has t he electric, gas, oil or water [employer] threatened to shut off services in your home? No 11/24/2022 Sex and Gender Information Value Date Recorded [...] 3:15 PM EDT Office Visit [facility] 230 [place] [address] Tasha Sargent MD 230 [place] [address] documented as of this encounter Goals Goal Patient Goal Type Associated Problems Recent Progress Patient-Stated? Author Blood Pressure < 140/90 Blood Pressure 128/86( 025 3:50 PM EDT) No Christian Villagomez, KingsleyD documented as of this encounter Procedures Procedure Name Priority Date/Time Associated Diagnosis Comments INFLUENZA A B2 ID NOW (BATRES) Routine 01/28/2023 1:26 PM EST Pain in left leg COVID-19 ID NOW (BATRES) Routine 01/28/2023 1:26 PM EST Pain in left leg documented in this encounter Results * Influenza A B2 ID NOW (Batres) (01/28/2023 1:26 PM EST) IDNOW SERIAL# [id number] [facility] Influenza A Negative Negative [facility] Influenza B2 Negative Negative [facility] Influenza A B2 Note See Note [facility] Comment:The Batres ID NOW In fluenza A B2 test is used for thequalitative detection of influenza A and B from patientswith signs and symptoms of respiratory infection.Negative results do not preclude influenza virus infectionand should not be used as the sole basis for diagnosis,treatment or other patient management decisions.There is a risk of false negative results due to thepresence of variants in the viral targets of the assay, lowlevels of virus in the specimen and co- infection withRespiratory Syncytial Virus. 01/28/2023 1:26 PM EST 01/28/2023 1:36 PM EST us Generic External Data Provider LAB MICROBIOLOGY - GENERAL ORDERABLES Final Result [facility] [address] [place] [phone] * COVID-19 ID NOW (BATRES) (01/28/2023 1:26 PM EST) IDNOW SERIAL# [id number] [facility] COVID-19 TEST Negative Negative [facility] COVID-19 NOTE See Note [facility] Comment: Results are for the identification of SARS-CoV2 RNA. TheSARS-CoV2 RNA is generally detectable in respiratory samplesduring the acute phase of infection. Positive results areindicative of the presence of SARS-CoV-2 RNA; clinicalcorrelation with patient history and other diagnosticinformation is necessary to determine patient infectionstatus. Positive results do not rule out bacterial infectionor co- infection with other viruses.Testing facilities within the [facility] and [facility] are required to report all positive results tothe appropriate public health authorities.Negative results should be treated as presumptive and, ifinconsistent with clinical signs and symptoms or necessaryfor patient management, should be tested with differentauthorized or cleared molecular tests. Negative results donot preclude SARS-CoV2 RNA infection and should not be usedas the sole basis for patient management decisions. Negativeresults should be considered in the context of a patient'srecent exposures, history and the presence of clinical signsand symptoms consistent with COVID-19.This test has been authorized by the FDA under an EmergencyUse Authorization (EUA) for use by authorized laboratories.Testing performed on the Batres ID NOW utilizing NAAT. 01/28/2023 1:26 PM EST 01/28/2023 1:36 PM EST us Generic External Data Provider LAB MOLECULAR ABBEY GNOSTICS ORDERABLES Final Result [facility] [address] [place] [address] [phone] documented in this encounter Visit Diagnoses Diagnosis Pain in left leg Chronic low back pain, unspecified back pain laterality, unspecified whether sciatica present documented in this encounter Care Teams Manager Portable Relationship Specialty Start Date End Date Hanna Ocasio MD [address] [place] [address] PCP - General Family Medicine 02/16/18 Christian Villagomez, Madhavi [address] [place] [address] Pharmacist Internal Medicine 03/18/22 Jhonathan Engel Set DecoratorLead Database Developer 05/11/23 documented as of this encounter
--- OUTSIDE RECORDS SUMMARY | 2024-11-09 12:16 | XMS_ITS | Encounter Summary ---
Author Organization [employer] Address [address] [facility] [address] 7t [place] [address] Care Team Providers Care Sporting Goods Salesperson Name Role Phone Hanna Ocasio MD Primary Care Provider [phone] Christian Villagomez PharmD Unavailable [phone] Reason for Visit * Reason Onset Date Comments Care Management 11/01/2024 C3CM- f/u call Encounter Details Date Type Department Care Team ([facility] st Contact Info) Description 11/01/2024 Telephone [facility] [address] [place] [address] Hanna Ocasio MD 230 [place], [place] [phone] Care Management (C3CM- f/u call) Social History Tobacco Use Types Packs/Day Years [...] Telephone Encounter - Terri Theodore RN - 11/01/2024 10:28 AM EDT RACHEL Theodore RN, sent notification to PCP Dr. Ocasio to inform that patient has completed C3 Adult Complex Care program with goals partially/fully met at this time. * Telephone Encounter - Terri Theodore RN - 11/01/2024 10:23 AM EDT RACHEL Theodore RN placed outbound call to patient. Patient's name, and address confirmed. Patient states is doing well with no recent illnesses or emergency room visits. Patient states he has not received the CPAP supplies yet. He states he contacted [facility] and was informed that they are inneed of additional documentation from PCP's office. CM will f/u with [facility]. Patient also states he has not been contacted by Plastic Surgery with an appt. CM will contact the office and will updatepatient. Per patient, situation with the PPI has been resolved. He states he is taking the medication as directed and denies any concerns. Patient is aware of his scheduled visit with GI on 12/12 anddenies any barriers to attending. Patient states he has not been able to contact [facility] to schedule an appt. He states he has been very busy due to recent move into a new apartment. He agrees to contact [facility] when able. CM reminded patient of his scheduled f/u with PCP on 11/08/24 at 10:30am. He states he is aware and denies any barriers to attending. No further questions or concerns. CM reinforced direct contact information for any additional questions or concerns. Education provided on Walk-In Urgent Care located in [facility] of [facility]. Patient provided with after-hours line for [facility], , which offer night time triage service and option to transfer to predator control trapper provider if needed. CM discussed with the patient progress made tow ards established goals. Patient notified is being graduated from the Care Management Program. Patient was educated on how to receive care management services in the future. Patient agrees with the plan and will contact us if any future needs arise. CM called Plastic Surgery. Spoke with Anne Marie who states that the referral was received but patient will first have to follow up with Endocrinology, who will then re- refer patient out to Plastic Surgery. CM called [facility]. Informed that they are in need of documentation from PCP's office in order to process the prescription and submit it to the patient's insurance. CM contacted Anat. She states PCPshould provide documentation stating patient's compliance to CPAP, benefit from therapy, etc. CM will forward to PCP to review. CM called patient to provide a status. No answer. Unable to leave v/m. documented in this encounter Plan of Treatment Upcoming Encounters Date Type Department Care Team (Late st Contact Info) Description 11/25/2024 3:15 PM EDT Office Visit [facility] [address] [place] [address] Tasha Sargent MD [address] [place] [address] documented as of this encounter Goals Goal [...] Assessment Noted Time PHQ-9 Depression Total Score: 025 10:42 AM EDT documented as of this encounter Care Teams Sporting Goods Salesperson Relationship Specialty Start Date End Date Hanna Ocasio MD [address] [place] [address] PCP - General Family Medicine 02/16/18 Christian Villagomez, KingsleyD [address] [place] [address] Pharmacist Internal Medicine 03/18/22 Jhonathan Engel Paddock JudgeOptical Effects Layout Person 05/11/23 documented as of this encounter
--- OUTSIDE RECORDS SUMMARY | 2024-11-09 12:16 | XMS_ITS | Encounter Summary ---
Author Organization [employer] Address [address] [facility] 7t [place] [address] Care Team Providers Care Drapery Hemmer Automatic Name Role Phone Hanna Ocasio MD Primary Care Provider [phone] Christian Villagomez PharmD Unavailable [phone] Reason for Visit * Reason Comments Med Refill Encounter Details Date Type Department Care Team ([facility] Contact Info) Description 12/30/2023 Refill [facility] 230 [place] [address] La Schmidt MD 230 [place], [place] [phone] Social History Tobacco Use Types Packs/Day Years [...] Description 11/25/2024 3:15 PM EDT Office Visit [facility] MEDICINE [address] [place] [address] Tasha Sargent MD [address] [place] [address] documented as of this encounter Goals Goal [...] documented as of this encounter Care Teams Drapery Hemmer Automatic Relationship Specialty Start Date End Date Hanna Ocasio MD [address] [place] [address] PCP - General Family Medicine 02/16/18 Christian Villagomez PharmD NPI: [id number] [place] [address] Pharmacist Internal Medicine 03/18/22 Jhonathan Engel River TesterAvionics Engineer 05/11/23 documented as of this encounter
--- OUTSIDE RECORDS SUMMARY | 2024-11-09 12:16 | XMS_ITS | Encounter Summary ---
Author Organization [employer] Address 75 [facility] 7t [place] [address] Care Team Providers Care Composition Roofer Name Role Phone Hanna Ocasio MD Primary Care Provider [phone] Christian Villagomez PharmD Unavailable [phone] Reason for Referral * Consultation (Routine) - Authorized Specialty Diagnoses / Procedures Referred By Contac t Referred To Contact Endocrinology Diagnoses Gynecomastia, male Other cirrhosis of liver (CMS/HCC) Hanna Ocasio MD 230 [place] [address] Phone: tel: fax: [facility] Endocrinology [address] [place] [address] Phone: tel: fax: Referral ID Status Reason Start Date Expiration Date Visits Requested Visits Authorized [id number] Authorized Specialty Services Required 11/01/2024 11/01/2025 12 12 Encounter Details Date Type Department Care Team (Late st Contact Info) Description 11/01/2024 Orders Only [facility] [address] [place], [place] [phone] Hanna Ocasio MD [address] [place], [place] [phone] Gynecomastia, male (Primary Dx); Other cirrhosis of liver (CMS/HCC) Social History Tobacco Use Types Packs/Day Years Used Date Smoking Tobacco: Some Days Cigarettes 0.3 10 Passive Smoke Exposure: Current Comments:2-3 cigarettes per week Alcohol Use Standard Drinks/Week Comments Yes 0 (1 standard drink = 0.6 oz pur e alcohol) Depression Answer Date Recorded Patient Health Questionnaire-9 Score 19 08/08/2024 Patient Health Questionnaire-9 Score 19 08/08/2024 [...] Description 11/25/2024 3:15 PM EDT Office Visit [facility] [address] [place] [address] Tasha Sargent MD [address] [place] [address] Scheduled Referrals Name Type Priority Associated Diagnoses Order Schedule Referral to Endocrinology Outpatient Referral Routine Gynecomastia, male Other cirrhosis of liver (CMS/HCC) Expected: 11/01/2024 (Approximate), Expires: 11/01/2025 documented as of this encounter Goals Goal Patient Goal Type Associated Problems Recent Progress Patient-Stated? Author Blood Pressure < 140/90 Blood Pressure 128/86(2024 3:50 PM EDT) No Christian Villagomez PharmD Hemoglobin A1c < 7 Result Component 5.8( 3:59 PM EDT) No Christian Villagomez PharmD documented as of this encounter Visit Diagnoses Diagnosis Gynecomastia, male- Primary Hypertrophy of breast Other cirrhosis of liver (CMS/HCC) documented in this encounter Additional Health Concerns Assessment Noted Time PHQ-9 Depression Total Score: 19 025 10:42 AM EDT documented as of this encounter Care Teams Composition Roofer Relationship Specialty Start Date End Date Hanna Ocasio MD [address] [place] [address] PCP - General Family Medicine 02/16/18 Christian Villagomez, Madhavi [address] [place] [address] Pharmacist Internal Medicine 03/18/22 Jhonathan Engel Turret Press OperatorPathology Laboratory Director 05/11/23 documented as of this encounter
--- OUTSIDE RECORDS SUMMARY | 2024-11-09 12:16 | XMS_ITS | Encounter Summary ---
Author Organization [employer] Address [address] [facility] [address] [place] [address] Care Team Providers Care Sales Contracts Analyst Name Role Phone Hanna Ocasio MD Primary Care Provider [phone] Christian Villagomez PharmD Unavailable [phone] Reason for Referral * Consultation (Routine) - Closed Specialty Diagnoses / Procedures Referred By Contac t Referred To Contact Pharmacy Diagnoses Type 2 diabetes mellitus with other specified complication, with long-term current use of insulin (CMS/HCC) Primary hypertension Dyslipidemia Hanna Ocasio MD 230 [place] [address] Phone: tel: fax: Referral ID Status Reason Start Date Expiration Date V isits Requested Visits Authorized [id number] Closed Continuity of Care 05/16/2024 05/16/2025 6 6 Encounter Details Date Type Department Care Team (Late st Contact Info) Description 05/16/2024 Orders Only [facility] MED[facility] [address] [place], [place] [phone] Hanna Ocasio MD [address] [place], [place] [phone] Type 2 diabetes mellitus with other specified complication, with long-term current use of insulin (CMS/HCC) (Primary Dx); Primary hypertension; Dyslipidemia Social History Tobacco Use Types Packs/Day Years [...] Description 11/25/2024 3:15 PM EDT Office Visit [facility] 230 [place], [place] [phone] Tasha Sargent MD [address] [place] [address] Scheduled Referrals Name Type Priority Associated Diagnoses Orde r Schedule Referral to Pharmacy [place] Outpatient Referral Routine Type 2 diabetes mellitus with other specified complication, with long-term current use of insulin ([facility]) Primary hypertension Dyslipidemia Ordered: 05/16/2024 documented as of this encounter Goals Goal Patient Goal Type Associated Problems Recent Progress Patient-Stated? Author Blood Pressure < 140/90 Blood Pressure 128/86(2024 3:50 PM EDT) No Christian Villagomez PharmD Hemoglobin A1c < 7 Result Component 5.8( 3:59 PM EDT) No Christian Villagomez PharmD documented as of this encounter Visit Diagnoses Diagnosis Type 2 diabetes mellitus with other specified complication, with long-term current use of insulin ([facility])- Primary Primary hypertension Unspecified essential hypertension Dyslipidemia Other and unspecified hyperlipidemia documented in this encounter Additional Health Concerns Assessment Noted Time PHQ-9 Depression Total Score: 17 024 2:27 PM EDT documented as of this encounter Care Teams Sales Contracts Analyst Relationship Specialty Start Date End Date Hanna Ocasio MD [address] [place] [address] PCP - General Family Medicine 02/16/18 Christian Villagomez PharmD 230 [place], [place] [phone] Pharmacist Internal Medicine 03/18/22 Jhonathan Engel Corridor Redevelopment ManagerFinancial Auditor 05/11/23 documented as of this encounter
--- OUTSIDE RECORDS SUMMARY | 2024-11-09 12:16 | XMS_ITS | Encounter Summary ---
Author Organization [employer] Address [address] 7[address] [place] [address] Care Team Providers Care Sap Enterprise Portal Consultant Name Role Phone Hanna Ocasio MD Primary Care Provider [phone] Christian Villagomez PharmD Unavailable [phone] Reason for Referral * Consultation (Routine) - Closed Specialty Diagnoses / Procedures Referred By Contac t Referred To Contact Pharmacy Diagnoses Primary hypertension Type 2 diabetes mellitus with other specified complication, with long-term current use of insulin (CMS/HCC) Dyslipidemia Hanna Ocasio MD [address] [place] [address] Phone: tel: fax: Referral ID Status Reason Start Date Expiration Date V isits Requested Visits Authorized [id number] Closed Consult and Treat 11/25/2023 11/24/2024 6 6 Encounter Details Date Type Department Care Team (Late st Contact Info) Description 11/25/2023 Orders Only [facility] MEDICINE [address] [place], [place] [phone] Hanna Ocasio MD [address] [place], [place] [phone] Primary hypertension (Primary Dx); Type 2 diabetes mellitus with other specified complication, with long-term current use of insulin (CMS/HCC); Dyslipidemia Social History Tobacco Use Types Packs/Day [...] AM EDT documented as of this encounter Functional Status * Over the past 2 weeks, how often have you been bothered by any of the following problems? Question Answer Date of Assessment Author Patient Health Questionnaire-2 Score 4 11/16 2:27 PM EDT Valeria Xiao * If you checked off any problems on this questionnaire so far, Question Answer Date of Assessment Author How difficult have these problems made it for you to do your work, take care of things at home, or get along with other people? Very difficult 11/27/2023 2:27 PM EDT Valeria Xiao * Over the last 2 weeks, how often have you been bothered by any of the following problems? Question Answer Date of Assessment Author Feeling nervous, anxious, or on edge 2 11/16 2:28 PM EDT Valeria Xiao Not being able to stop or co ntrol worrying 3 11/27/2023 2:28 PM EDT Valeria Xiao Worrying too much about diff erent things 3 11/27/2023 2:28 PM EDT Valerai Xiao Trouble relaxing 2 11/27/2023 2:28 PM EDT T Valeria gill Being so restless that it is hard to sit still 2 11/27/2023 2:28 PM EDT Valeria Xiao Becoming easily annoyed or irritable 2 11/16 2:28 PM EDT Valerai Xiao Feeling afraid as if somethi ng awful might happen 0 11/27/2023 2:28 PM EDT Valeria Xiao CLIFTON-7 Total Score 14 11/27/2023 2:28 PM EDT Valeria Xiao * Over the past 2 weeks, how often have you been bothered by any of the following problems? Question Answer Date of Assessment Author Little interest or pleasure in doing things Nearly every day 11/27/2023 2:27 PM EDT Omayra Xiao Feeling down, depressed, or hopeless Several days 11/27/2023 2:27 PM EDT Valeria Xiao Trouble falling or staying asleep, or sleeping too much Nearly every day 11/27/2023 2:27 PM EDT Valeria Xiao Feeling tired or having little energy Nearly every day 11/27/2023 2:27 PM EDT Valeria Xiao Poor appetite or overeating Nearly every day 11/27/2023 2:27 PM EDT Valeria Xiao Feeling bad about yourself - or that you are a failure or have let yourself or your family down Several days 11/27/2023 2:27 PM EDT Valeria Xiao Trouble concentrating on things, such as reading the newspaper or watching television More than half the days 11/27/2023 2:27 PM EDT Valeria Xiao Moving or speaking so slowly that other people could have noticed? Or the opposite - being so fidgety or restless that you have been moving around a lot more than usual. Several days 11/27/2023 2:27 PM EDT Valeria Xiao Thoughts that you would be better off or hurting yourself in some way Not at all 11/27/2023 2:27 PM EDT Valeria Xiao Patient Health Questionnaire-9 Score 17 11/27/2023 2:27 PM EDT Valeria Xiao documented as of this encounter Plan of Treatment Upcoming Encounters Date Type Department Care Team (Late st Contact Info) Description 11/25/2024 3:15 PM EDT Office Visit [facility] MEDICINE [address] [place] [address] Tasha Sargent MD [address] [place] [address] Scheduled Referrals Name Type Priority Associated Diagnoses Orde r Schedule Referral to Pharmacy CDTM Outpatient Referral Routine Primary hypertension Type 2 diabetes mellitus with other specified complication, with long-term current use of insulin ([facility]) Dyslipidemia Ordered: 11/25/2023 documented as of this encounter Goals Goal Patient Goal Type Associated Problems Recent Progress Patient-Stated? Author Blood Pressure < 140/90 Blood Pressure 128/86(2024 3:50 PM EDT) No Christian Villagomez, PharmCatalina Hemoglobin A1c < 7 Result Component 5.8( 3:59 PM EDT) No Christian Villagomez PharmD documented as of this encounter Visit Diagnoses Diagnosis Primary hypertension- Primary Unspecified essential hypertension Type 2 diabetes mellitus with other specified complication, with long-term current use of insulin ([facility]) Dyslipidemia Other and unspecified hyperlipidemia documented in this encounter Additional Health Concerns Assessment Noted Time PHQ-9 Depression Total Score: 0 06/03/19 24 9:56 AM EDT documented as of this encounter Care Teams S[employer] Enterprise Portal Consultant Relationship Specialty Start Date End Date Hanna Ocasio MD [address] [place] [address] PCP - General Family Medicine 02/16/18 Christian Villagomez, PharmD [address] [place] [address] Pharmacist Internal Medicine 03/18/22 Jhonathan Engel Associate JusticePerforator 05/11/23 documented as of this encounter
--- OUTSIDE RECORDS SUMMARY | 2024-11-09 12:16 | XMS_ITS | Encounter Summary ---
Author Organization [employer] Address [address] 7[address] [place] [address] Care Team Providers Care Pricing Lead Name Role Phone Hanna Ocasio MD Primary Care Provider Christian Villagomez PharmD Unavailable Reason for Visit * Reason Onset Date Comments Med Refill 07/05/2024 Encounter Details Date Type Department Care Team (Late st Contact Info) Description 07/05/2024 Telephone [facility] MEDICINE [address] [place], [place] [phone] Hanna Ocasio MD [address] [place], [place] [phone] Med Refill Social History Tobacco Use Types [...] Continuous Glucose Sensor (FreeStyle Estela [address] [facility] [place] [facility] documented in this encounter Plan of Treatment Upcoming Encounters Date Type Department Care Team (Late st Contact Info) Description 11/25/2024 3:15 PM EDT Office Visit [facility] MEDICINE [address] [place] [address] Tasha Sargent MD [address] [place] [address] documented as of this encounter Goals Goal [...] documented as of this encounter Care Teams Pricing Lead Relationship Specialty Start Date End Date Hanna Ocasio MD [address] [place] [address] PCP - General Family Medicine 02/16/18 Christian Villagomez, KingsleyD [address] [place] [address] Pharmacist Internal Medicine 03/18/22 Jhonathan Engel Copy DirectorCar Cooper 05/11/23 documented as of this encounter
--- OUTSIDE RECORDS SUMMARY | 2024-11-09 12:16 | XMS_ITS | Encounter Summary ---
Author Organization [employer] Address [address] 7[address] [place] [address] Care Team Providers Care Western Philosophy Professor Name Role Phone Hanna Ocasio MD Primary Care Provider [phone] Christian Villagomez PharmD Unavailable [phone] Reason for Visit * Reason Onset Date Comments Appointment 06/25/2022 Encounter Details Date Type Department Care Team (Late st Contact Info) Description 06/25/2022 Telephone [facility] [address] [place] [address] Louie Hinton, DMD [address] [place], [place] [phone] Appointment Social History Tobacco Use Types Packs/Day Years Used Date Smoking Tobacco: Some Days Cigarettes 0.3 10 Passive Smoke Exposure: Current Comments:2-3 cigarettes per week Alcohol Use Standard Drinks/Week Comments Yes 0 (1 standard drink = 0.6 oz pur e alcohol) Sex and Gender Information Value Date Recorded Sex Assigned at Male 12/16/2021 10:20 AM EDT Legal Sex Male 10:20 AM EDT Gender Identity Male 12/16/2021 10:20 AM EDT Sexual Orientation Straight 12/16/2021 10 :20 AM EDT COVID-19 Exposure Response Date Recorded In the last 10 days, have yo u been in contact with someone who was confirmed or suspected to have Coronavirus/COVID-19? No / Unsure 06/20/2022 1:10 PM EDT documented as of this encounter Miscellaneous Notes * Telephone Encounter - Cari Engel - 06/25/2022 10:33 AM EDT Good morning Patient was informed and was reschedule for 07/10/2022 at 10:00 am * Telephone Encounter - Cari Engel - 06/25/2022 8:28 AM EDT Christian Morin 1975 patient appt is on 07/04/2022 for Delivery * Telephone Encounter - Cari Engel - 06/25/2022 8:24 AM EDT [facility] called and stated that crown will be in office on 07/08/2022 documented in this encounter Plan of Treatment Upcoming Encounters Date Type Department Care Team (Late st Contact Info) Description 11/25/2024 3:15 PM EDT Office Visit [facility] MEDICINE [address] [place] [address] Tasha Sargent MD [address] [place] [address] documented as of this encounter Goals Goal Patient Goal Type Associated Problems Recent Progress Patient-Stated? Author Blood Pressure < 140/90 Blood Pressure 128/86( 025 3:50 PM EDT) No Christian Villagomez, PharmD documented as of this encounter Visit Diagnoses Not on filedocumented in this encounter Care Teams Western Philosophy Professor Relationship Specialty Start Date End Date Hanna Ocasio MD [address] [place], [place] [phone] PCP - General Family Medicine 02/16/18 Christian Villagomez, PharmD [address] [place], [place] [phone] Pharmacist Internal Medicine 03/18/22 Jhonathan Engel Composite Layup WorkerCritical Care Physician 05/11/23 documented as of this encounter
--- OUTSIDE RECORDS SUMMARY | 2024-11-09 12:17 | XMS_ITS | Encounter Summary ---
Author Organization [employer] Address [address] [place] [address] Care Team Providers Care Ward Clerk Name Role Phone Hanna Ocasio MD Primary Care Provider [phone] Christian Villagomez PharmD Unavailable [phone] Reason for Visit * Reason Onset Date Comments Hospital Follow-up 04/29/2024 Encounter Details Date Type Department Care Team (Late st Contact Info) Description 04/29/2024 Telephone [facility] MEDICINE [address] [place], [place] [phone] Hanna Ocasio MD [address] [place], [place] [phone] Hospital Follow-up Social History Tobacco Use Types Packs/Day Years [...] encounter Miscellaneous Notes * Telephone Encounter - Anita Ramírez - 04/29/2024 10:25 AM EDT Tc from pt requesting a HDF appt. Hospital: [facility] Date of admission: 04/25 Discharge date: 04/28 Diagnosed: Gastrointestinal Endoscopy *Send message to Florent[facility] Clinical Care Coordinators [phone] portuguese documented in this encounter Plan of Treatment Upcoming Encounters Date Type Department Care Team ([facility] st Contact Info) Description 11/25/2024 3:15 PM EDT Office Visit [facility] MEDICINE [address] [place] [address] Tasha Sargent MD [address] [place] [address] documented as of this encounter Goals Goal Patient Goal Type Associated Problems Recent Progress Patient-Stated? Author Blood Pressure < 140/90 Blood Pressure 128/86(2024 3:50 PM EDT) No Christian Villagomez, PharmD Hemoglobin A1c < 7 Result Component 5.8( 5 3:59 PM EDT) No Christian Villagomez, PharmD documented as of this encounter Visit Diagnoses Not on filedocumented in this encounter Additional Health Concerns Assessment Noted Time PHQ-9 Depression Total Score: 17 024 2:27 PM EDT documented as of this encounter Care Teams Ward Clerk Relationship Specialty Start Date End Date Hanna Ocasio MD [address] [place] [address] PCP - General Family Medicine 02/16/18 Christian Villagomez, PharmD [address] [place] [address] Pharmacist Internal Medicine 03/18/22 Jhonathan Engel Anesthesiology CrnaMerchandise Presentation Manager 05/11/23 documented as of this encounter
--- OUTSIDE RECORDS SUMMARY | 2024-11-09 12:17 | XMS_ITS | Encounter Summary ---
Author Organization [employer] Address [address] [place] [address] Care Team Providers Care Pm Technician Name Role Phone Hanna Ocasio MD Primary Care Provider Christian Villagomez PharmD Unavailable [phone] Reason for Referral * Consultation (Routine) - Closed Specialty Diagnoses / Procedures Referred By Contac t Referred To Contact Gastroenterology Diagnoses Other cirrhosis of liver (CMS/HCC) Hanna Ocasio MD [address] [place] [address] Phone: tel: fax: [facility] Referral ID Status Reason Start Date Expiration Date V isits Requested Visits Authorized [id number] Closed Specialty Services Required 09/12/2024 09/12/2025 6 6 Encounter Details Date Type Department Care Team (Late st Contact Info) Description 09/09/2024 Orders Only [facility] MEDICINE [address] [place] [phone] Hanna Ocasio MD [address] [place], [place] [phone] Other cirrhosis of liver (CMS/HCC) (Primary Dx) Social History Tobacco Use Types Packs/Day Years [...] Description 11/25/2024 3:15 PM EDT Office Visit [facility] MEDICINE [address] [place] [address] Tasha Sargent MD [address] [place] [address] Scheduled Referrals Name Type Priority Associated Diagnoses Order Schedule Referral to Gastroenterology Outpatient Referral Routine Other cirrhosis of liver (CMS/HCC) Expected: 09/09/2024 (Approximate), Expires: 09/09/2025 documented as of this encounter Goals Goal Patient Goal Type Associated Problems Recent Progress Patient-Stated? Author Blood Pressure < 140/90 Blood Pressure 128/86(2024 3:50 PM EDT) No Christian Villagomez PharmD Hemoglobin A1c < 7 Result Component 5.8( 3:59 PM EDT) No Christian Villagomez PharmD documented as of this encounter Visit Diagnoses Diagnosis Other cirrhosis of liver (CMS/HCC)- Primary documented in this encounter Additional Health Concerns Assessment Noted Time PHQ-9 Depression Total Score: 19 025 10:42 AM EDT documented as of this encounter Care Teams Pm Technician Relationship Specialty Start Date End Date Hanna Ocasio MD [address] [place] [address] PCP - General Family Medicine 02/16/18 Christian Villagomez PharmD [address] [place] [address] Pharmacist Internal Medicine 03/18/22 Jhonathan Engel Termination ClerkIntervention Nurse 05/11/23 documented as of this encounter
--- OUTSIDE RECORDS SUMMARY | 2024-11-09 12:17 | XMS_ITS | Encounter Summary ---
Author Organization [employer] Address [address] [place] [address] Care Team Providers Care Mine Exploration Engineer Name Role Phone Hanna Ocasio MD Primary Care Provider [phone] Christian Villagomez PharmD Unavailable [phone] Reason for Visit * Reason Onset Date Comments chart prep 11/07/2024 Encounter Details Date Type Department Care Team ([facility] st Contact Info) Description 11/07/2024 Telephone [facility] MEDICINE [address] [place] [address] Hanna Ocasio MD [address] [place], [place] [phone] chart prep Social History Tobacco Use Types Packs/Day Years [...] encounter Miscellaneous Notes * Telephone Encounter - Miryam Sherwood [place] - 11/07/2024 1:46 PM EDT Chart Prep Labs: done Images: done Screenings: Colonoscopy , Eye Exam, and Foot Exam Vaccines due: Covid Due and Flu Due Referrals: Endocrinology Pending appointment on 11/09/24 at 10 AM Overdue care gaps: A1C, Glucose, SDOH, GAD7, Disability , and Oral Health documented in this encounter Plan of Treatment Upcoming Encounters Date Type Department Care Team (Late st Contact Info) Description 11/25/2024 3:15 PM EDT Office Visit [facility] MEDICINE [address] [place] [address] Tasha Sargent MD [address] [place] [address] documented as of this encounter Goals Goal Patient Goal Type Associated Problems Recent Progress Patient-Stated? Author Blood Pressure < 140/90 Blood Pressure 128/86(2024 3:50 PM EDT) No Christian Villagomez, PharmD Hemoglobin A1c < 7 Result Component 5.8( 5 3:59 PM EDT) No Christian Villagomez PharmD documented as of this encounter Visit Diagnoses Not on filedocumented in this encounter Additional Health Concerns Assessment Noted Time PHQ-9 Depression Total Score: 19 025 10:42 AM EDT documented as of this encounter Care Teams Mine Exploration Engineer Relationship Specialty Start Date End Date Hanna Ocasio MD [address] [place] [address] PCP - General Family Medicine 02/16/18 Christian Villagomez PharmD [address] [place] [address] Pharmacist Internal Medicine 03/18/22 Jhonathan Engel Underwriting ConsultantKindergarten Instructional Assistant 05/11/23 documented as of this encounter
--- OUTSIDE RECORDS SUMMARY | 2024-11-09 12:17 | XMS_ITS | Encounter Summary ---
Author Organization [employer] Address [address] [facility] 7t [place] [address] Care Team Providers Care Ferry Hand Name Role Phone Hanna Ocasio MD Primary Care Provider [phone] Christian Villagomez PharmD Unavailable [phone] Reason for Referral * Imaging (Routine) - Closed Specialty Diagnoses / Procedures Referred By Contac t Referred To Contact Radiology Diagnoses Nausea Hypersalivation Procedures NM Gastric Emptying Solid Hanna Ocasio MD [address] [place] [address] Phone: tel: fax: [address] Phone: tel: fax: Referral ID Status Reason Start Date Expiration Date Visits Re quested Visits Authorized [id number] Closed 06/20/2023 06/19/2024 3 3 Encounter Details Date Type Department Care Team (Late st Contact Info) Description 06/20/2023 Orders Only [facility] MEDICINE [address] [place], [place] [phone] Hanna Ocasio MD [address] [place], [place] [phone] Nausea; Hypersalivation Social History Tobacco Use Types Packs/Day Years Used Date Smoking Tobacco: Some Days Cigarettes 0.3 10 Passive Smoke Exposure: Current Comments:2-3 cigarettes per week Alcohol Use Standard Drinks/Week Comments Yes 0 (1 standard drink = 0.6 oz pur e alcohol) Depression Answer Date Recorded Patient Health Questionnaire-9 Score 0 06/03/2023 Patient Health Questionnaire-9 Score 0 06/03/2023 Last PHQ-9: Questionnaire Data Not on file 0 06/03/2023 Housing Stability Answer Date Recorded What is [...] Answer Date Recorded Patient Health Questionnaire-2 Score 0 06/03/2023 Sex and Gender Information Value Date Recorded Sex Assigned at Male 12/16/2021 10:20 AM EDT Legal Sex Male 10:20 AM EDT Gender Identity Male 12/16/2021 10:20 AM EDT Sexual Orientation Straight 12/16/2021 10 :20 AM EDT documented as of this encounter Plan of Treatment Upcoming Encounters Date Type Department Care Team (Late st Contact Info) Description 11/25/2024 3:15 PM EDT Office Visit [facility] MEDICINE [address] [place] [address] Tasha Sargent MD [address] [place] [address] Scheduled Orders Name Type Priority Associated Diagnoses Orde r Schedule NM Gastric Emptying Solid Imaging Routine Nausea Hypersalivation Expected: 06/20/2023, Expires: 06/19/2024 documented as of this encounter Goals Goal Patient Goal Type Associated Problems Recent Progress Patient-Stated? Author Blood Pressure < 140/90 Blood Pressure 128/86(2024 3:50 PM EDT) No Christian Villagomez PharmD Hemoglobin A1c < 7 Result Component 5.8( 3:59 PM EDT) No Christian Villagomez PharmD documented as of this encounter Visit Diagnoses Diagnosis Nausea Nausea alone Hypersalivation Disturbance of salivary secretion documented in this encounter Additional Health Concerns Assessment Noted Time PHQ-9 Depression Total Score: 0 06/03/19 24 9:56 AM EDT documented as of this encounter Care Teams Ferry Hand Relationship Specialty Start Date End Date Hanna Ocasio MD [address] [place] [address] PCP - General Family Medicine 02/16/18 Christian Villagomez PharmD [address] [place] [address] Pharmacist Internal Medicine 03/18/22 Jhonathan Engel Advertising Account ManagerLitigator 05/11/23 documented as of this encounter
--- OUTSIDE RECORDS SUMMARY | 2024-11-09 12:17 | XMS_ITS | Encounter Summary ---
Author Organization [employer] Address [address] [place] [address] Care Team Providers Care Mortician Investigator Name Role Phone Hanna Ocasio MD Primary Care Provider [phone] Christian Villagomez PharmD Unavailable [phone] Reason for Visit * Reason Comments Med Refill Encounter Details Date Type Department Care Team ([facility] st Contact Info) Description 07/13/2023 Refill [facility] MEDICINE [address] [place], [place] [phone] Christian Villagomez, PharmD [address] [place], [place] [phone] Type 2 diabetes mellitus with hyperglycemia, with long-term current use of insulin ([facility]) Social History Tobacco Use Types Packs/Day Years [...] got money to buy more: Sometimes True 03/28/ 2024 Within the past 12 months,th e food [...] Description 11/25/2024 3:15 PM EDT Office Visit [facility] MEDICINE [address] [place] [address] Tasha Sargent MD [address] [place] [address] documented as of this encounter Goals Goal Patient Goal Type Associated Problems Recent Progress Patient-Stated? Author Blood Pressure < 140/90 Blood Pressure 128/86(2024 3:50 PM EDT) No Christian Villagomez, PharmD Hemoglobin A1c < 7 Result Component 5.8( 3:59 PM EDT) No Christian Villagomez, PharmD documented as of this encounter Visit Diagnoses Diagnosis Type 2 diabetes mellitus with hyperglycemia, with long-term current use of insulin ([facility]) documented in this encounter Additional Health Concerns Assessment Noted Time PHQ-9 Depression Total Score: 0 06/03/19 24 9:56 AM EDT documented as of this encounter Care Teams Mortician Investigator Relationship Specialty Start Date End Date Hanna Ocasio MD [address] [place] [address] PCP - General Family Medicine 02/16/18 Christian Villagomez, PharmD [address] [place] [address] Pharmacist Internal Medicine 03/18/22 Jhonathan Engel Organizational ConsultantChief Clerk Shelter 05/11/23 documented as of this encounter
--- OUTSIDE RECORDS SUMMARY | 2024-11-09 12:17 | XMS_ITS | Clinical Summary ---
Author Organization [employer] Address [address] [facility] [address] [place] [address] Care Team Providers Care Leather Case Finisher Name Role Phone Hanna Ocasio MD Primary Care Provider [phone] Christian Villagomez PharmD Unavailable [phone] Allergies Active Allergy Reactions Criticality Noted Date Comments Duloxetine Shortness of breath High 11/26/2017 Metformin High 11/19/2015 Other reaction(s): GI Problems Ranitidine Itching High 03/17/2022 Other reaction(s): DIFFICULTY BREATHING, ITCHING Medications * This document contains information received from the source organization and may not represent a complete record from that organization. tamsulosin (Flomax) 0.4 MG 24 hr capsule TAKE 1 CAPSULE BY MOUTH EVERY EVENING 022 Active Blood Pressure Monitoring (Adult Blood Pressure Cuff Lg) kitIndications:P rimary hypertension Use daily as directed 1 kit 023 Active Diclofenac Sodium 1 % gelIndications:P ain APPLY 2 GRAMS TOPICALLY AFFECTED AREA(S) TWICE DAILY DIRECTED 100 g 023 Active cholecalciferol (Vitamin D-3) 25 MCG tablet TAKE 1 TABLET BY MOUTH EVERY MORNING 90 tablet 3 023 Active Continuous Blood Gluc Senior Sourcing Manager (FreeStyle Estela 2 Perry) deviceIndication s:Type 2 diabetes mellitus with hyperglycemia, with long-term current use of insulin (CMS/HCC) Use as directed 1 each 023 Active Ventolin HFA 108 (90 Base) MCG/ACT inhaler INHALE 2 PUFFS BY MOUTH EVERY 4 HOURS 18 g 1 023 Active beta carotene (vitamin A) 3 MG (93613 UT) capsule TAKE 1 CAPSULE BY MOUTH EVERY MORNING 023 Active Blood Glucose Monitoring Suppl (FreeStyle Orlando Lite) w/Device kitIndications:T ype 2 diabetes mellitus with hyperglycemia ([facility]) TEST BLOOD SUGAR THREE TIMES DAILY 1 kit 024 Active [address] capsule TAKE 1 CAPSULE BY MOUTH EVERY MORNING 90 capsule 3 024 Active tadalafil (Cialis) 20 MG tablet TAKE 1 TABLET BY MOUTH ON DEMAND 60 MINUTES BEFORE SEXUAL ACTIVITY ONCE PER DAY 024 Active montelukast (Singulair) 10 MG tablet TAKE 1 TABLET BY MOUTH EVERY EVENING 90 tablet 3 024 Active cetirizine (ZyrTEC) 10 MG tablet TAKE 1 TABLET BY MOUTH AT BEDTIME 90 tablet 024 Active Continuous Glucose Sensor (FreeStyle Estela 2 Sensor) miscIndications: Type 2 diabetes mellitus with other specified complication, with long-term current use of insulin ([facility]) Scan every 8 hours as directed. Replace every 14 days. 1 each 024 Active cholecalciferol (Vitamin D-3) 50 MCG (2000 UT) capsule Take 1 capsule (50 mcg) by mouth Once per day. 90 capsule 3 024 2024 Active TRUEplus Lancets 33G miscIndications: Type 2 diabetes mellitus with hyperglycemia ([facility]) TEST BLOOD SUGAR FOUR TIMES DAILY 100 each 11 024 Active fluticasone (Flonase) 50 MCG/ACT nasal spray INHALE 1 SPRAY IN EACH NOSTRIL ONCE DAILY 16 g 3 024 Active UltiGuard SafePack Pen Needle 32G X 4 MM misc USE FOUR TIMES DAILY 100 each 11 024 Active insulin glargine (Toujeo SoloStar) 300 UNIT/ML injectionIndicat ions:Type 2 diabetes mellitus with hyperglycemia, with long-term current use of insulin ([facility]) INJECT 20 UNITS SUBCUTANEOUSLY EVERY DAY DIRECTED 4.5 mL 5 025 Active lidocaine (Lidoderm) 5 % patchIndications :Pain in left leg,Chronic low back pain, unspecified back pain laterality, unspecified whether sciatica present APPLY 1 PATCH TOPICALLY TO SKIN, LEAVE ON FOR 12 HOURS AND OFF FOR 12 HOURS DIRECTED 30 patch 3 025 Active rosuvastatin (Crestor) 5 MG tablet TAKE 1 TABLET BY MOUTH EVERY MORNING 90 tablet 3 025 Active Alcohol Swabs (Alcohol Prep) 70 % pads TEST BLOOD SUGAR TWICE DAILY 100 each 11 025 Active Trulicity 0.75 MG/0.5ML solution auto-injectorInd ications:Type 2 diabetes mellitus with other specified complication, with long-term current use of insulin ([facility]) INJECT ONE PEN (=0.75MG) SUBCUTANEOUSLY ONCE A WEEK DIRECTED 2 mL 3 025 Active glucose blood (FreeStyle Precision Jordan Test) test stripIndications :Type 2 diabetes mellitus with hyperglycemia, with long-term current use of insulin ([facility]) USE DIRECTED TO CHECK BLOOD SUGAR 50 strip 5 025 Active Multiple Vitamin (multivitamin) tablet Take 1 tablet by mouth Once per day. 90 tablet 3 025 Active Blood Pressure kit Check blood pressure twice a week or prn 1 kit 025 Active Continuous Glucose Sensor (FreeStyle Estela 2 Sensor) miscIndications: Type 2 diabetes mellitus with hyperglycemia, with long-term current use of insulin ([facility]) USE DIRECTED TO TEST BLOOD SUGAR CHANGE EVERY 14 DAYS 2 each 5 025 Active chlorthalidone (Hygroton) 25 MG tablet TAKE 1/2 TABLET BY MOUTH EVERY MORNING 45 tablet 3 025 Active metoprolol succinate XL (Toprol-XL) 50 MG 24 hr tablet TAKE 1 TABLET BY MOUTH EVERY MORNING 90 tablet 3 025 Active chlorthalidone (Hygroton) 25 MG tablet TAKE 1/2 TABLET BY MOUTH EVERY MORNING 45 tablet 3 024 2024 Discontinued metoprolol succinate XL (Toprol-XL) 50 MG 24 hr tablet TAKE 1 TABLET BY MOUTH EVERY MORNING 90 tablet 3 024 2024 Discontinued Active Problems Problem Noted Date Diagnosed Date Eyelid lesion 08/01/2024 Assessment & Plan (08/01/2024 4:49 PM EDT): - Avoid irritation - Referred to adjunct instructor Gynecomastia, male 08/01/2024 Assessment & Plan (08/01/2024 4:51 PM EDT): - Discussed that it is due to cirrhosis and history of obesity - Pt is interested in surgical reduction - Will refer to plastic surgeon for their recommendation Right knee pain 05/10/2024 Left knee pain 05/10/2024 Assessment & Plan (08/13/2024 5:36 PM EDT): - Following with [facility], last seen in April 2024 - Patient was unable to complete MRI study due to concern about CGM. He should be able to wear CGM. Erectile dysfunction 03/28/2024 Moderate episode of recurrent major depressive d isorder 11/27/2023 Assessment & Plan (08/13/2024 5:30 PM EDT): - PHQ9 score 19 and GAD7 scire 14 in July 2024 - Pt was seen by integrated behavioral health clinician in 2023 - Pt requests continuation of behavioral health service and will request a follow up - Previously on medications, but he self discontinued Assessment & Plan (11/27/2023 2:46 PM EDT): PROGRESS NOTE: ID: Christian is a 48 y.o. straight-identified cis-male with previous documented hx of Depression and Anxiety services including OP Psychotherapy psychopharmacology who presents for Anxiety and Depression During IBH Consult Christian presenting with depressed mood, crying spells , hopelessness, irritable mood, loss of interests/pleasure , change in appetite or weight overeating, changes in sleep difficulty falling asleep and difficulty staying asleep , psychomotor retardation, fatigue/loss of energy, worthlessness, difficulty concentrating and excessive worry/anxiety, difficulty controlling worry, and anxiety/worry associated to restlessness and/or feeling keyed-up/On edge , easily fatigued , difficulty concentrating and/or mind going blank , irritability, muscle tension , and sleep disturbance difficulty falling asleep and difficulty staying asleep ; for a period of 18+ mo, for most or all symptoms in the context of financial concern, illness or family illness, and housing. PLAN: New/Additional Services needed Off-site services for Behavioral Health Integration Plan Internal Cold handoff to [facility] External OP BH therapy referral and OP psychiatry Referral Patient Self Plan Patient to utilize skills provided in intervention , [facility] as needed, Patient to engage in OP therapy , and Patient to reach out to [facility] as needed Spinal stenosis of lumbar region 12/05/2022 12/05/2022 Lumbar radiculitis 12/05/2022 12/05/2022 Liver lesion 12/05/2022 12/05/2022 Lipoma of neck 12/05/2022 12/05/2022 Hyperplastic polyp of stomach 12/05/2022 Disorder of sacroiliac joint 12/05/2022 Degeneration of intervertebral disc of lumbar re gion 12/05/2022 12/05/2022 Chronic epigastric pain 12/05/2022 12/06/19 Arthropathy of spinal facet joint 12/05/2022 12/05/2022 Dental calculus 04/16/2022 Gallstones 04/13/2022 Assessment & Plan (06/03/2023 12:37 PM EDT): - Seen by Dr. Warren, General surgery on 12/18/21 for elective cholecystectomy. Pt was advised to call to schedule after his trip to [place]. - patient reports right side flank pain and upper abdominal pain. Patient is concerned about gallstone. Most recent US in MAR 2023 shows gallstone without sign of inflammation. Will check kidney stone if negative. Will refer him back to Dr. Warren for elective cholecystectomy. Assessment & Plan (04/13/2022 6:38 AM EST): Seen by Dr. Warren, General surgery on 12/18/21 for elective cholecystectomy. Pt was advised to call to schedule after his trip to [place]. Cirrhosis 04/13/2022 Assessment & Plan (08/01/2024 4:45 PM EDT): -Followed by [facility]. Last seen on 01/09 -EGD 03/23/19 - no varices -Continue lifestyle modifications -Continue US evaluation for surveillance, every six months -Most recent US 04/01/23 -Liver MRI on 05/09/21 showed cirrhotic appearing liver, significant fibrotic change, no focal lesion, small upper abdominal varices -Avoid hepatotoxic substances - Advised patient to reschedule appointment with his GI Specialist. -Previously tried pentoxifilline -Last EGD 04/27/24 Assessment & Plan (06/03/2023 12:30 PM EDT): -Followed by [facility]. Last seen on 04/11 -EGD 03/23/19 - no varices -Continue lifestyle modifications -Continue US evaluation for surveillance, every six months -Most recent US 04/01/23 -Liver MRI on 05/09/21 showed cirrhotic appearing liver, significant fibrotic change, no focal lesion, small upper abdominal varices -Avoid hepatotoxic substances - Advised patient to reschedule appointment with his GI Specialist. -Previously tried pentoxifilline -Scheduled for EGD Assessment & Plan (02/20/2023 5:55 PM EST): -Followed by [facility]. Last seen on 11/17/22 -EGD 03/23/19 - no varices -Continue lifestyle modifications -Continue US evaluation for surveillance, every six months -Most recent US 03/26/21 - cirrhotic appearing liver, difficult to exclude a focal liver lesion, limited visualization of GB and pancrea, MRI is recommended -Liver MRI on 05/09/21 showed cirrhotic appearing liver, significant fibrotic change, no focal lesion, small upper abdominal varices -Avoid hepatotoxic substances - Advised patient to reschedule appointment with his GI Specialist. -Previously tried pentoxifilline -Will check with GI if we can start statin Tx. -Will keep BB for HTN Assessment & Plan (11/27/2022 9:26 AM EDT): -Followed by [facility]. Last seen on 11/17/22 -EGD 03/23/19 - no varices -Continue lifestyle modifications -Continue US evaluation for surveillance, every six months -Most recent US 03/26/21 - cirrhotic appearing liver, difficult to exclude a focal liver lesion, limited visualization of GB and pancrea, MRI is recommended -Liver MRI on 05/09/21 showed cirrhotic appearing liver, significant fibrotic change, no focal lesion, small upper abdominal varices -Avoid hepatotoxic substances - Advised patient to reschedule appointment with his GI Specialist. -Previously tried pentoxifilline -Will check with GI if we can start statin Tx. -Will keep BB for HTN Assessment & Plan (10/29/2022 4:00 PM EDT): -Followed by [facility]. Last seen in Dec 2020 -EGD 03/23/19 - no varices -Continue lifestyle modifications -Continue US evaluation for surveillance, every six months -Most recent US 03/26/21 - cirrhotic appearing liver, difficult to exclude a focal liver lesion, limited visualization of GB and pancrea, MRI is recommended -Liver MRI on 05/09/21 showed cirrhotic appearing liver, significant fibrotic change, no focal lesion, small upper abdominal varices -Avoid hepatotoxic substances - Advised patient to reschedule appointment with his GI Specialist. -Previously tried pentoxifilline -Will check with GI if we can start statin Tx. -Will keep BB for HTN Assessment & Plan (05/29/2022 2:07 PM EDT): -Followed by [facility]. Last seen in Dec 2020 -EGD 03/23/19 - no varices -Continue lifestyle modifications -Continue US evaluation for surveillance, every six months -Most recent US 03/26/21 - cirrhotic appearing liver, difficult to exclude a focal liver lesion, limited visualization of GB and pancrea, MRI is recommended -Liver MRI on 05/09/21 showed cirrhotic appearing liver, significant fibrotic change, no focal lesion, small upper abdominal varices -Avoid hepatotoxic substances - Advised patient to reschedule appointment with his GI Specialist. -Confirm GI about pentoxifilline -Will check with GI if we can start statin Tx. Assessment & Plan (04/13/2022 6:51 AM EST): -Followed by [facility]. Last seen in Dec 2020 -EGD 03/23/19 - no varices -Continue lifestyle modifications -Continue US evaluation for surveillance, every six months -Most recent US 03/26/21 - cirrhotic appearing liver, difficult to exclude a focal liver lesion, limited visualization of GB and pancrea, MRI is recommended -Liver MRI on 3/24/22 showed cirrhotic appearing liver, significant fibrotic change, no focal lesion, small upper abdominal varices -Avoid hepatotoxic substances -Follow-up with GI as recommended -Confirm GI about pentoxifilline -Will check with GI if we can start statin Tx. Low back pain 04/13/2022 Assessment & Plan (11/27/2022 9:33 AM EDT): -Evaluated by pain management and neurosurgeon -Pt had been receiving epidural injection, last in December 2020 -Attempted epidural injection on 05/22/21, but pt was told that it cannot be safely done under fluoroscopic guidance, and was recommended to be re-evaluated by neurosurgeon, Dr. Ingram. Will refer to Dr. Ingram -Continue judicious use of tramadol, lidoderm and gabapentin. -Reviewed ANALYTICAL LAB ANALYST agreement again -Use APAP 1 gm q8h prn, caution with cirrhosis Assessment & Plan (04/13/2022 6:51 AM EST): -Followed by pain management and neurosurgeon -Pt had been receiving epidural injection, last in December 2020 -Attempted epidural injection on 05/22/21, but pt was told that it cannot be safely done under fluoroscopic guidance, and was recommended to be re-evaluated by neurosurgeon, Dr. Ingram. Will refer to Dr. Ingram -Continue judicious use of tramadol, lidoderm and gabapentin. -Reviewed ANALYTICAL LAB ANALYST agreement again -Use APAP 1 gm q8h prn, caution with cirrhosis Erectile dysfunction associa devon with type 2 diabetes mellitus 04/13/2022 Assessment & Plan (04/13/2022 6:55 AM EST): -Followed by urologist -Continue tadalafil as prescribed Benign prostatic hyperplasia with urinary obstru ction 04/13/2022 Assessment & Plan (02/20/2023 5:55 PM EST): -Following with Dr. Keith, [facility] -Continue tamsulosin as prescribed -Continue tadalafil as prescribed Assessment & Plan (05/29/2022 2:02 PM EDT): -Following with Dr. Keith, [facility] -Continue tamsulosin as prescribed -Continue tadalafil as prescribed Assessment & Plan (04/13/2022 6:56 AM EST): -Following with Dr. Keith, [facility] -Continue tamsulosin as prescribed -Continue tadalafil as prescribed Tear of medial meniscus of knee 04/02/2017 Type 2 diabetes mellitus 11/19/2015 Assessment & Plan (08/03/2024 12:55 PM EDT): -A1C 5.8% on 08/01/24, improved 6.9% on 02/19/23 -Continue dulaglutide 0.75 mg weekly. -Lantus was self-discontinued due to possible allergic reaction per pt. -Toujejo is prescribed currently but he hardly uses -Pt also reported allergic reaction to Humalog -metformin both regular and ER caused diarrhea -Bydureon was discontinued due to nausea -Ozempic was discontinued due to GI side effect -glipizide was discontinued due to hypoglycemia -Emphasized the importance of diligent SMBG; starting CGM -Continue working on lifestyle modification -Last Eye exam in Oct 2021. No diabetic retinopathy. -Last comprehensive foot exam: 06/03/23 -Last microalbumin test: 01/07/24 UACR 5.0 - last lipid profile 01/07/24 TG 74, TC 150, LDL 85, HDL 51 Last dental exam:2021 Immunizations: UTD Assessment & Plan (06/03/2023 12:32 PM EDT): -A1C 6.9% on 02/19/23, improved from 7.3% on 11/25/22, recently took prednisone -Continue basal insulin, currently Toujeo 20 units at bedtime. -Continue bolus insulin, currently Novolog 10 units with each meal, check BG 2 hours after he eats. -Continue dulaglutide 1.5 mg weekly. Patient may be having side effect, but patient perceives that it is due to insulin -previously on glipizide 10 mg bid -Lantus was self-discontinued due to possible allergic reaction per pt -Pt also reported allergic reaction to Humalog -metformin both regular and ER caused diarrhea -Bydureon was discontinued due to nausea -Ozempic was discontinued due to GI side effect -glipizide was discontinued due to hypoglycemia -Emphasized the importance of diligent SMBG; starting CGM -Continue working on lifestyle modification -Last Eye exam in Oct 2021. No diabetic retinopathy. -Last comprehensive foot exam: 06/03/23 -Last microalbumin test:02/20/23UACR normal -Last lipid profile: 02/26/23 Last dental exam:2021 Immunizations: UTD Assessment & Plan (02/20/2023 6:05 PM EST): -A1C 6.9% on 02/19/23, improved from 7.3% on 11/25/22, recently took prednisone -Continue basal insulin, currently Toujeo 25 units at bedtime. Decrease to 22 units once he starts GLP-1 agonist. -Continue bolus insulin, currently Novolog 10 units with each meal, check BG 2 hours after he eats. -Continue dulaglutide 0.75 mg weekly. Patient may be having side effect, but patient perceives that it is due to Novolog -previously on glipizide 10 mg bid if he develops hyperglycemia after he receives steroid injection. -Lantus was self-discontinued due to possible allergic reaction -Pt also reported allergic reaction to Humalog -metformin both regular and ER caused diarrhea -Bydureon was discontinued due to nausea -Ozempic was discontinued due to GI side effect -Emphasized the importance of diligent SMBG; starting CGM -Continue working on lifestyle modification -Last Eye exam in Oct 2021. No diabetic retinopathy. -Last comprehensive foot exam: 07/10/21 -Last microalbumin test:01/07/22 UACR normal -Last lipid profile: 12/03/21 TC 141; TG 106; HDL 53; LDL 69 Last dental exam:2021 Immunizations: UTD Assessment & Plan (11/27/2022 9:31 AM EDT): -A1C 7.3% on 11/25/22, 7.0% on 10/07/22 -Continue basal insulin, currently Toujeo 25 units at bedtime. Decrease to 22 units once he starts GLP-1 agonist. -Continue bolus insulin, currently Novolog 10 units with each meal, check BG 2 hours after he eats. -glipizide 10 mg bid if he develops hyperglycemia after he receives steroid injection. Discontinue once he starts GLP-1 agonist -He is interested in trying ozempic again because his GI recommended. Pt does not remember having adverse reaction with semaglutide. Will try GLP-1 agonist, either dulaglutide or semaglutide. Treatment Hx -Lantus was self-discontinued due to possible allergic reaction -Pt now reports he also has allergic reaction to Humalog -metformin both regular and ER caused diarrhea -glipizide was discontinued due to Hx hypoglycemia, but was resumed since he started receiving steroid injection to his back -Bydureon was discontinued due to nausea -Ozempic was discontinued due to GI side effect -Emphasized the importance of diligent SMBG; consider CGM -Continue working on lifestyle modification -Last Eye exam in Oct 2021. No diabetic retinopathy. -Last comprehensive foot exam: 07/10/21 -Last microalbumin test:01/07/22 UACR normal -Last lipid profile: 12/03/21 TC 141; TG 106; HDL 53; LDL 69 Last dental exam:2021 Immunizations: UTD Assessment & Plan (10/29/2022 4:01 PM EDT): -A1C 7.0% on 10/07/22 today, improved from 8.0% on 05/29/22 -Continue basal insulin, currently Toujeo 25 units qhs, -Continue bolus insulin, currently Novolog 10 units with each meal, check BG 2 hours after he eats. -glipizide 10 mg bid if he develops hyperglycemia after he receives steroid injection Treatment Hx -Lantus was self-discontinued due to possible allergic reaction -Pt now reports he also has allergic reaction to Humalog -metformin both regular and ER caused diarrhea -glipizide was discontinued due to Hx hypoglycemia, but was resumed since he started receiving steroid injection to his back -Bydureon was discontinued due to nausea -Ozempic was discontinued due to GI side effect -Emphasized the importance of diligent SMBG; consider CGM -Continue working on lifestyle modification -Last Eye exam in Oct 2021. No diabetic retinopathy. -Last comprehensive foot exam: 07/10/21 -Last microalbumin test:01/07/22 UACR normal -Last lipid profile: 12/03/21 TC 141; TG 106; HDL 53; LDL 69 Last dental exam:2021 Immunizations: UTD Assessment & Plan (06/16/2022 6:44 PM EDT): -A1C 8.0% on 05/29/22, slight increase from 7.6% on 01/07/22 -Continue basal insulin, currently Toujeo 25 units qhs, -Continue bolus insulin, currently Novolog 10 units with each meal, check BG 2 hours after he eats. -glipizide 10 mg bid if he develops hyperglycemia after he receives steroid injection Treatment Hx -Lantus was self-discontinued due to possible allergic reaction -Pt now reports he also has allergic reaction to Humalog -metformin both regular and ER caused diarrhea -glipizide was discontinued due to Hx hypoglycemia, but was resumed since he started receiving steroid injection to his back -Bydureon was discontinued due to nausea -Ozempic was discontinued due to GI side effect -Emphasized the importance of diligent SMBG; consider CGM -Continue working on lifestyle modification -Last Eye exam in Oct 2021. No diabetic retinopathy. -Last comprehensive foot exam: 07/10/21 -Last microalbumin test:01/07/22 UACR normal -Last lipid profile: 12/03/21 TC 141; TG 106; HDL 53; LDL 69 Last dental exam:2021 Immunizations: UTD Assessment & Plan (04/13/2022 6:43 AM EST): -A1C 7.6% 01/07/22 -Continue basal insulin, currently Toujeo 25 units qhs, -Continue bolus insulin, but will switch Humalog Kwik 20 units with each meal, to Novolog 10 units with each meal, check BG 2 hours after he eats. -glipizide 10 mg bid if he develops hyperglycemia after he receives steroid injection Treatment Hx -Lantus was self-discontinued due to possible allergic reaction -Pt now reports he also has allergic reaction to Humalog -metformin both regular and ER caused diarrhea -glipizide was discontinued due to Hx hypoglycemia, but was resumed since he started receiving steroid injection to his back -Bydureon was discontinued due to nausea -Ozempic was discontinued due to GI side effect -Emphasized the importance of diligent SMBG; consider CGM -Continue working on lifestyle modification -Last Eye exam in August 2018. No diabetic retinopathy. Referring to a new adjunct instructor -Last comprehensive foot exam: 07/10/21 -Last microalbumin test:01/07/22 UACR normal -Last lipid profile: 12/03/21 TC 141; TG 106; HDL 53; LDL 69 Last dental exam:2022 Immunizations: UTD Vitamin D deficiency 11/19/2015 Assessment & Plan (08/01/2024 4:43 PM EDT): - Last Vitamin D 20.7 on 01/07/24 - Continue Vitamin D supplement Carpal tunnel syndrome 05/14/2015 Allergic rhinitis 01/31/2015 Cubital tunnel syndrome 01/31/2015 Dyslipidemia 01/31/2015 Assessment & Plan (08/03/2024 12:55 PM EDT): - last lipid profile 01/07/24 TG 74, TC 150, LDL 85, HDL 51 - continue rosuvastatin 5 mg at bedtime Assessment & Plan (06/03/2023 12:34 PM EDT): - last lipid profile 02/26/23 - will start rosuvastatin 5 mg at bedtime - recheck liver panel and lipid profile in 1 mos. Assessment & Plan (02/20/2023 6:02 PM EST): - not on statin yet HTN (hypertension) 01/31/2015 Assessment & Plan (08/01/2024 4:38 PM EDT): -Goal BP < 130/80 per ACC/AHA guideline (Treatment threshold >=130/80) -Co-managed with pharmacist and outsole molder ([place] [facility] seen [place] Feb 2022[place] -Hx hypotension and syncope because patient had not been adherent to the medications, and when he started his BP dropped -Continue working on lifestyle modifications -advise to check BP at home and contact us if BP is persistently elevated -Continue current medications: Chlorthalidone 12.5 mg daily; metoprolol succinate 50 mg daily -Treatment Hx: amlodipine 5 mg and lisinopril 40 mg were discontinued when he had a syncope and was hypotensive. -Emphasized the importance of keeping appointment with Christian Villagomez RPh, Pharm D. Assessment & Plan (06/03/2023 12:27 PM EDT): -Goal BP < 140/90 per JNC-8 and < 130/80 per ACC/AHA guideline (Treatment threshold >=130/80 ) -BP not at goal today -Co-managed with pharmacist and outsole molder ([place]. Guzman, [facility] seen in Feb 2022) -Hx hypotension and syncope because patient had not been adherent to the medications, and when he started his BP dropped -Continue working on lifestyle modifications -advise to check BP at home and contact us if BP is persistently elevated -Continue current medications: Chlorthalidone 12.5 mg daily; metoprolol succinate 25 mg daily -Treatment Hx: amlodipine 5 mg and lisinopril 40 mg were discontinued when he had a syncope and was hypotensive. -Emphasized the importance of keeping appointment with Christian Villagomez RPh, Pharm D. Assessment & Plan (02/20/2023 5:54 PM EST): -Goal BP < 140/90 per JNC-8 and < 130/80 per ACC/AHA guideline (Treatment threshold >=130/80 ) -BP at goal today -Co-managed with pharmacist and outsole molder (Dr. Guzman, [facility] seen [place] Feb 2022) -Hx hypotension and syncope because patient had not been adherent to the medications, and when he started his BP dropped -Continue working on lifestyle modifications -Self-monitoring BP -Continue current medications: Chlorthalidone 12.5 mg daily; metoprolol succinate 50 mg daily -Treatment Hx: amlodipine 5 mg and lisinopril 40 mg were discontinued when he had a syncope and was hypotensive. -Emphasized the importance of keeping appointment with Christian Villagomez RPh, Pharm D. -Follow up in 3-6 mo, sooner if any problem arises Assessment & Plan (11/27/2022 9:25 AM EDT): -Goal BP < 140/90 per JNC-8 and < 130/80 per ACC/AHA guideline (Treatment threshold >=130/80 ) - BP not at goal today, likely due to lack of AutoPAP for OLIVER -Continue working on lifestyle modifications -Continue current medications: Chlorthalidone 12.5 mg daily; metoprolol succinate 50 mg daily -Hx of Hypotension and Syncope Following Drainage Engineer, Dr. Guz[place] [facility] [place] -Treatment Hx: amlodipine 5 mg and lisinopril 40 mg were discontinued when he had a syncope and was hypotensive. -Follow up in 3-6 mo, sooner if any problem arises Assessment & Plan (10/29/2022 3:58 PM EDT): -Goal BP < 140/90 per JNC-8 and < 130/80 per ACC/AHA guideline (Treatment threshold >=130/80 ) - BP not at goal today, likely due to lack of AutoPAP for OLIVER -Continue working on lifestyle modifications -Continue current medications: Chlorthalidone 12.5 mg daily; metoprolol succinate 50 mg daily -Hx of Hypotension and Syncope Following Drainage Engineer, Dr. Guzman [facility] [place] 03[place]17[place] -Treatment Hx: amlodipine 5 mg and lisinopril 40 mg were discontinued when he had a syncope and was hypotensive. -Follow up in 3-6 mo, sooner if any problem arises Assessment & Plan (05/29/2022 11:03 AM EDT): -Goal BP < 140/90 per JNC-8 and < 130/80 per ACC/AHA guideline (Treatment threshold >=130/80 ) - BP at goal today -Continue working on lifestyle modifications -Continue current medications: Chlorthalidone 12.5 mg daily; metoprolol succinate 50 mg daily -Hx of Hypotension and Syncope Following Drainage Engineer, Dr. Guzman [facility] [place]17[place] -Treatment Hx: amlodipine 5 mg and lisinopril 40 mg were discontinued when he had a syncope and was hypotensive. -Follow up in 3-6 mo, sooner if any problem arises Assessment & Plan (04/13/2022 6:49 AM EST): -Goal BP < 140/90 per JNC-8 and < 130/80 per ACC/AHA guideline (Treatment threshold >=130/80 ) -Continue working on lifestyle modifications -Continue current medications: Chlorthalidone 12.5 mg daily; metoprolol succinate 50 mg daily -Treatment Hx: amlodipine 5 mg and lisinopril 40 mg were discontinued when he had a syncope and was hypotensive. -Follow up in 3-6 mo, sooner if any problem arises Left scapholunate ligament tear 01/31/2015 Pain in left leg 08/22/2014 Asthma 11/08/2013 Assessment & Plan (02/20/2023 5:51 PM EST): - last exacerbation in Jan 2023, seen in ED. Rx doxycycline, prednisone, and benzonatate for acute bronchtis - continue albuterol HFA prn Insomnia 11/12/2011 Obesity 11/12/2011 Assessment & Plan (08/13/2024 5:27 PM EDT): - on GLP-1 agonist - limited exercise capacity due to leg pain Assessment & Plan (06/03/2023 12:31 PM EDT): - on GLP-1 agonist - limited exercise capacity due to leg pain - patient lost 30 lbs. In 6 mos. Assessment & Plan (02/20/2023 6:01 PM EST): - on GLP-1 agonist - limited exercise capacity due to leg pain Metabolic dysfunction-associated steatohepatitis (MASH) 11/12/2011 Assessment & Plan (05/29/2022 2:06 PM EDT): Advised patient to reschedule appointment with his GI Specialist. OLIVER on CPAP 11/12/2011 Assessment & Plan (06/03/2023 12:25 PM EDT): -Patient had Sleep Study on 06/13/21, which showed - Mild OLIVER and recommended positional therapy -if no improvement, recommended Auto PAP with pressure 6-16 cm H2O - Continue current CPAP Assessment & Plan (02/20/2023 5:49 PM EST): -Patient had Sleep Study on 06/13/21, which showed - Mild OLIVER and recommended positional therapy -if no improvement, recommended Auto PAP with pressure 6-16 cm H2O -pt still has not received Auto PAP although script was written in May 2022. -will check the status of Auto PAP. - recommended to go to the office in-person to get Auto PAP, rather than waiting for its delivery Assessment & Plan (11/27/2022 9:25 AM EDT): -Patient had Sleep Study on 06/13/21, which showed - Mild OLIVER and recommended positional therapy -if no improvement, recommended Auto PAP with pressure 6-16 cm H2O -pt still has not received Auto PAP although script was written in May 2022. -will check the status of Auto PAP. Assessment & Plan (10/29/2022 3:58 PM EDT): -Patient had Sleep Study on 06/13/21, which showed - Mild OLIVER and recommended positional therapy -if no improvement, recommended Auto PAP with pressure 6-16 cm H2O -pt still has not received Auto PAP although script was written in May 2022. -will check the status of Auto PAP. Assessment & Plan (06/16/2022 7:03 PM EDT): -Patient had Sleep Study on 06/13/21, which showed - Mild OLIVER and recommended positional therapy -if no improvement, recommended Auto PAP with pressure 6-16 cm H2O -will attempt to write prescription for Auto PAP -if patient requires a new Sleep Study, will refer to sleep medicine clinic GERD (gastroesophageal reflux disease) 2 Assessment & Plan (04/13/2022 6:54 AM EST): -Continue Dexilant as prescribed by GI Anxiety 08/11/2011 Resolved Problems Problem Noted Date Diagnosed Date Resolved Date Colitis 12/05/2022 12/05/2022 11/16/2023 Accidental hypodermic needlestick injury 12/05/2022 12/05/2022 02/18/2023 Patient exposure to blood 09/15/2022 Puncture wound 09/15/2022 09/15/2022 Puncture wound of right index finger 09/15/2022 11/16/2023 Assessment & Plan (11/27/2022 9:27 AM EDT): - test for blood borne diseases was negative x 2 Accident caused by a hypodermic needle 09/12/2022 02/18/2023 Assessment & Plan (10/29/2022 4:02 PM EDT): - pt did not receive PEP - check lab Needle exposure, initial encounter 09/11/2022 10/29/2022 Assessment & Plan (09/11/2022 9:17 PM EDT): Pt has significant risk factors including DM2,cirrhosis with thrombocytopenia and will need to consider exposure to needle as possible high risk in this area where syringe could have been used for IVDU -unknown source . Exposure seems superficial but there was blood from pinprick and window is slight above 72 hours -from previous titers pt had in 12/2020 : HIV,hep C and Hep B core and ag neg and surface ab neg -pt s/p hep B vaccine x4 -last dose 12/2021 -s/p tdap in 2011 -labs 08/25/2022 : AST 65, ALT 48,hb 12.9, platelets 82 -pt has gonzalo risk due to his cirrhosis and he is in the window for PEP and hep B IgG tx to prevent HIV and Hep B and will need tdap -I called today [facility] and spoke seth RIZVI and explained the case and need for ppx tx and testing --they will be waiting for pt ,they states they do have hep B IgG , will give PEP and will do titers -pt will as well to resume vaccination for hep B to complete 2 series that is missing , he was resumed on hep B vaccination for 2nd time in 12/2021 So will need to get hep B vaccine 2nd dose and in 5 months 3rd dose and to have hep B surface ab checked 1 month after completes vaccine series -will need to have after serologies done at hospital today to monitor HIV ag/Ab in 6 weeks and 4 months ,hep C VL in 6 weeks and ab in 4 months and hep B f up with core ab and ag in 6 months -will need to f up here w PCP to continue titers or possibly at hospital? -advised pt to go immediately to ER to start labs and meds-pt agreed w plan and will [facility]. -gave pt all relevant labs in the past and vaccine records to take to hospital Dysuria 05/29/2022 02/20/2023 Assessment & Plan (06/16/2022 6:42 PM EDT): - UA normal -advised to follow-up with Urologist Mood disorder 08/19/1999 11/27/2023 Encounters * This document contains information received from the source organization and may not represent a complete record from that organization. Date Type Department Care Team Description 11/07/[address] [address] Hanna Ocasio MD chart prep 11/04/[address] [address] Hanna Ocasio MD 11/01/2024 Orders Only [address] [address] Hanna Ocasio MD Gynecomastia, male (Primary Dx); Other cirrhosis of liver (CMS/HCC) 11/01/[address] [address] Hanna Ocasio MD Care Management (C3CM- f/u call) 10/21/[address] [address] Hanna Ocasio MD Care Management (C3CM- f/u call #3. Unable to leave v/m. ) 10/13/2024 Patient Outreach [address] [address] Hanna Ocasio MD Care Coordination (Sdoh F/U) 10/13/[address] [address] Hanna Ocasio MD Care Management (C3CM- f/u call #2. Unable to leave v/m.) 10/13/[address] [address] Hanna Ocasio MD 09/28/2024 Telephone [facility] [place] [address] Hanna Ocasio MD Care Management (C3CM- f/u call. Not available.) 09/16/2024 Telephone [facility] [place] [address] Hanna Ocasio MD Care Management (C3CM- f/u call) 09/16/2024 Telephone [facility] [place] [address] Hanna Ocasio MD Error (VOID this visit) 09/12/2024 Refill [facility] [place] [address] Hanna Ocasio MD Type 2 diabetes mellitus with hyperglycemia, with long-term current use of insulin (CMS/HCC) 09/09/2024 Orders Only [facility] [place] [address] Hanna Ocasio MD Other cirrhosis of liver (CMS/HCC) (Primary Dx) 09/09/2024 Patient Outreach [facility] [place] [address] Hanna Ocasio MD Care Coordination (SDOH) 09/09/2024 Telephone [facility] [place] [address] Hanna Ocasio MD Care Management (C3CM- f/u call) 09/02/2024 Telephone [facility] [place] [address] Hanna Ocasio MD Care Management (C3CM- f/u call) 09/01/2024 Telephone [facility] [place] [address] Anne-Marie Reyna, STALIN Results 08/30/2024 Orders Only [facility] [place] [address] Hanna Ocasio MD 08/29/2024 Results Follow-Up [facility] [place] [address] Hanna Ocasio MD POCT glucose manually resulted, POCT glycosylated hemoglobin (Hgb A1c), Lipid Panel with Reflex to Direct LDL, Additional followed-up results: 11 08/29/2024 Orders Only GENERIC EXTERNAL DATA DEPARTMENT Provider, Generic External Data 08/26/[address] [address] Anne-Marie Reyna, parts salesperson Question 08/22/[address] [facility] [address] [place] [address] [phone] Hanna Ocasio MD Type 2 diabetes mellitus with hyperglycemia, with long-term current use of insulin (CMS/[facility]) 08/17/[address] [facility] [address] [place] [address] [phone] Hanna Ocasio MD Care Management (C3- f/u call lvm) 08/15/[address] [address] Hanna Ocasio MD MRI Instructions 08/15/[address] [phone] Hanna Ocasio MD Error (VOID this visit) 08/15/[address] [phone] Hanna Ocasio MD Inmormation 08/12/[address] [facility] [address] [place] [address] [phone] Hanna Ocasio MD Type 2 diabetes mellitus with other specified complication, with long-term current use of insulin ([facility]) from Last 3 Months Immunizations Immunization Administration Dates Next Due Hep A, Adult 01/05/2019,08/22/2014 Hep B, adult 01/07/2022, 6,08/22/2014,11/08 Influenza injectable quadriv alent IIV4 with preservative 11/24/2017,11/19/2015 Influenza injectable quadriv alent preservative free 02/19/2023,01/29/2022,03/28/2020,01/05 Influenza, IIV3, injectable 11/08/2013,0 11/13/2010,11/24/2008,03/20 Influenza, Split (incl. payton fied surface antigen) 12/16/2012,11/12/2011 Influenza, seasonal, injecta ble, preservative free 01/05/2024 Moderna Covid-19 Vaccine 12+ 01/28/2021,05/12/19 21,04/13/2020 Moderna Covid-19 Vaccine 6+ Bivalent 01/29/2022 Pfizer Covid-19 Vaccine 12+ 01/05/2024, Pneumococcal Conjugate PCV 20 02/19/2023 Pneumococcal Polysaccharide PPSV23 03/04/2011 TD (adult), 2 Lf tetanus tox oid, preservative free, adsorbed 02/26/2009 Tdap 09/11/2022,11/12/2011 Social History Tobacco Use Types Packs/Day Years Used Date Smoking Tobacco: Some Days Cigarettes 0.3 10 Passive Smoke Exposure: Current Tobacco Cessation:Ready to Q uit: Not Asked; Counseling Given: Not Answered Comments:2-3 cigarettes per week Alcohol Use Standard [...] Orientation Straight 12/16/2021 10 :20 AM EDT Last Filed Vital Signs Vital Sign Reading Time Taken Comments Blood Pressure 128/86 08/01/2024 3:50 PM EDT Pulse 96 08/01/2024 3:50 PM EDT Temperature 36.2 C (97.1 F) 08/01/2024 3:50 PM EDT Respiratory Rate 15 08/01/2024 3:50 PM EDT Oxygen Saturation 96% 08/25/2023 3:23 PM EDT Inhaled Oxygen Concentration - - Weight 110 kg (241 lb 9.6 oz) 08/01/2024 3:50 PM EDT Height 172.7 cm (5' 8 ) 08/01/2024 3:50 PM EDT Body Mass Index 36.74 08/01/2024 3:50 PM EDT Plan of Treatment Upcoming Encounters Date Type Department Care Team (Late st Contact Info) Description 11/25/2024 3:15 PM EDT Office Visit [facility] [address] [place] [address] Tasha Sargent MD [address] [place] [address] Health Maintenance Due Date Last Done Comments CT Colonography 1975 Colonoscopy 1976 Colorectal Cancer Screening 1975 FIT DNA/Cologuard 1975 FIT 1975 FOBT 1975 Sigmoidoscopy 1975 Disability Screening 1975 Diabetes: Foot Exam 02/27/1986 Eye Exam 02/27/1986 Family Planning (PISQ) 02/27/1991 Dental Oral Exam 08/05/2022 02/03/2022 Dental Prophylaxis 10/18/2022 04/16/2022 Dental X-Ray: Bitewings 02/04/2023 02/03/2022 SDOH Screening 05/13/2024 05/14/2023 Influenza Vaccine (#1) 2024 , 02/19/2023, 01/29/2022, Additional history exists Diabetes: Hemoglobin A1C 11/01/2024 025, 01/07/2024, 10/15/2023, Additional history exists Dental X-Ray: Full Mouth 02/04/2025 02/03/2022 Depression Monitoring 02/07/2025 08/08/2024, 025 Alcohol/Substance Use Screening 08/01/2025 08/01/2024 Tobacco Screening 08/13/2025 08/13/2024 Diabetes: Urine Protein Screening 08/29/2025 08/29/2024, 01/07/2024, 02/20/2023, Additional history exists Lipid Panel 08/29/2025 08/29/2024, 12/18, 10/15/2023, Additional history exists Zoster Vaccines (1 of 2) 02/27/2026 DTaP/Tdap/Td Vaccines (3 - Td or Tdap) 09/11/2032 09/11/2022, 11/12/2011, 02/26/2009 RSV Patients and Patients Aged 60 years or older (1 - 1-dose 75+ series) 02/27/2051 Hepatitis A Vaccines Completed 01/05/2019, 08/23/19 15 Hepatitis B Vaccines Completed 01/07/2022, 11/19/2015, 08/22/2014, Additional history exists Pneumococcal Vaccine: Pediatrics (0 to 5 Years) and At-Risk Patients (6 to 49) Years Completed 02/19/2023, 03/04/2011 COVID-19 Vaccine Completed 01/05/2024, 05/2023, 01/29/2022, Additional history exists HIV Screening Completed 08/29/2024, 12/18, 10/23/2022, Additional history exists Hepatitis C Screening Completed 08/29/2024 , 01/07/2024, 06/03/2023, Additional history exists HIB Vaccines Aged Out No longer eligi ble based on patient's age to complete this topic HPV Vaccines Aged Out No longer eligi ble based on patient's age to complete this topic IPV Vaccines Aged Out No longer eligi ble based on patient's age to complete this topic Meningococcal B Vaccine Aged Out No l onger eligible based on patient's age to complete this topic Meningococcal Vaccine Aged Out No alexsandra breanne eligible based on patient's age to complete this topic RSV under 20 months Aged Out No longe r eligible based on patient's age to complete this topic Rotavirus Vaccines Aged Out No longer eligible based on patient's age to complete this topic Goals Goal Patient Goal Type Associated Problems Recent Progress Patient-Stated? Author Blood Pressure < 140/90 Blood Pressure 128/86(2024 3:50 PM EDT) No Christian Villagomez PharmD Hemoglobin A1c < 7 Result Component 5.8( 3:59 PM EDT) No Christian Villagomez PharmD Procedures Procedure Name Priority Date/Time Associated Diagnosis Comments CT ABDOMEN W CONTRAST Routine 08/29/2024 3:33 PM EDT TESTOSTERONE, TOTAL, MALES (ADULT), IA Routine 08/29/2024 8:29 AM EDT CHLAMYDIA/TRICHOMONAS /NEISSERIA GONORRHOEAE, PCR, URINE Routine 08/29/2024 8:29 AM EDT PSA, TOTAL Routine 08/29/2024 8:29 AM EDT HEPATITIS B SURFACE ANTIGEN, EIA Routine 08/29/2024 8:29 AM EDT Routine screening for STI (sexually transmitted infection) HIV 1/2 ANTIGEN/ANTIBODY, FOURTH GENERATION W/RFL Routine 08/29/2024 8:29 AM EDT Routine screening for STI (sexually transmitted infection) HEPATITIS C AB W/REFL TO HCV RNA, QN, PCR Routine 08/29/2024 8:29 AM EDT Routine screening for STI (sexually transmitted infection) SYPHILIS SCREEN Routine 08/29/2024 8:29 AM EDT Routine screening for STI (sexually transmitted infection) VITAMIN D,25-OH,TOTAL,IA Routine 08/29/2024 8:29 AM EDT Vitamin D deficiency PROTHROMBIN TIME-INR Routine 08/29/2024 8:29 AM EDT Other cirrhosis of liver (CMS/HCC) HEPATIC FUNCTION PANEL Routine 08/29/2024 8:29 AM EDT Other cirrhosis of liver (CMS/HCC) BASIC METABOLIC PANEL Routine 08/29/2024 8:29 AM EDT Primary hypertension CBC WITH AUTO DIFFERENTIAL Routine 08/29/2024 8:29 AM EDT Other cirrhosis of liver (CMS/HCC) TSH W/REFLEX TO FT4 Routine 08/29/2024 8 :29 AM EDT Primary hypertension ALBUMIN, RANDOM URINE W/CREATININE Routine 08/29/2024 8:29 AM EDT Primary hypertension Type 2 diabetes mellitus with other specified complication, with long-term current use of insulin (CMS/HCC) LIPID PANEL WITH REFLEX TO DIRECT LDL Routine 08/29/2024 8:29 AM EDT Dyslipidemia POCT GLYCOSYLATED HEMOGLOBIN (HGB A1C) Routine 08/01/2024 3:59 PM EDT Type 2 diabetes mellitus with other specified complication, with long-term current use of insulin (CMS/HCC) PROPHYLAXIS - ADULT Routine 04/16/2022 1 0:00 AM EST Dental calculus INTRAORAL - COMPLETE SERIES OF RADIOGRAPHIC IMAGES Routine 02/03/2022 10:30 AM EST Occlusal wear of teeth, generalized COMPREHENSIVE ORAL EVALUATION - NEW OR ESTABLISHED PATIENT Routine 02/03/2022 10:30 AM EST Occlusal wear of teeth, generalized from Last 3 Months or Most Recently Relevant to Health Maintenance Results * CT Abdomen w/ Contrast (08/29/2024 3:33 PM EDT) Anatomical Region Laterality Modality Body, Abdomen Computed Tomogra phy 08/29/2024 3:33 PM EDT Narrative 08/29/2024 4:42 PM EDT [address] [address] [address] Scan Report Signed Patient: Christian Tan MR#: [id number] : 1975 Acct:[id number] Age/Sex: 49 / M ADM Date: 08/29/24 Loc: HO.CT Attending Dr: Hazel Anna MD Ordering Physician: Hazel Anna MD Date of Service: 08/29/24 Procedure(s): CT abdomen w IV con Accession Number(s): [id number] cc: Hazel Anna MD; Hanna Ocasio MD Report Number: [id number]: Total DLP = 429.00 mGy-cm EXAMINATION: CT ABDOMEN WITH CONTRAST CLINICAL INFORMATION: K74.69 - Other cirrhosis of liver COMPARISON: April 25, 2024 DLP: 429 mGY*cm TECHNIQUE: Contiguous axial thin section helical images of the abdomen were performed following the administration of 85 mL mL of Omnipaque 350 intravenous contrast. The data set was reformatted in the coronal and sagittal planes and reviewed on an independent workstation. This CT examination was performed using dose optimization techniques as appropriate, variously including the following: *Automated exposure control *Adjustment of mA and/or kV according to patient size (this includes techniques or standardized protocols for targeted exams where dose is matched to indication/reason for exam; i.e. extremities or head) *Use of iterative reconstruction technique FINDINGS: LUNG BASES: Clear LIVER, GALLBLADDER, AND BILIARY TREE: The liver has a nodular scalloped margin, as previous described. There is atrophy, more pronounced in the left hepatic lobe. No hyperenhancing lesions are identified. There is recanalization of the umbilical vein. There are up hill esophageal varicosities posterior to the distal esophagus. Right and left portal veins are patent. Contrast is also seen in the right, middle, and left hepatic veins. There is trace ascites and teja mesentery. There is gallbladder wall thickening and pericholecystic fluid. There are 3 calcified stones visible gallbladder. PANCREAS: Unremarkable SPLEEN: 18.5 cm, previously 17.9 cm. ADRENAL GLANDS AND KIDNEYS: 8 mm fat density mass in the superior left kidney is consistent with a small angiomyolipoma. Kidneys are otherwise unremarkable. BOWEL LOOPS: Unremarkable LYMPH NODES: No adenopathy. VASCULAR: Unremarkable, aside from vessels in the liver section. BONES: Moderate to severe multilevel degenerative disc disease and facet arthropathy is again noted in thoracolumbar spine with anterior bridging osteophytes CT/CT abdomen w IV con IMPRESSION: Cirrhosis with probable portal hypertension. There is a recanalized umbilical vein and up hill esophageal varicosities. Splenomegaly is probably mildly increased Cholelithiasis. Gallbladder wall thickening and pericholecystic fluid is stable and probably secondary to hypoalbuminemia. Fleischner guidelines were followed. Electronically signed by: Luciano Vera MD 08/29/2024 04:38 PM EDT RP Dictated By: Luciano Vera MD Signed By: <Electronically signed by Luciano Vera MD in OV> 08/29/24 1638 DD/ 1533 TD/TT: 08/29/24 1618 [place] Attendant: Procedure Note Donotuseinterpreter, Image - 08/29/[address] [address] [address] Scan Report Signed Patient: Christian TanMR#: [id number] : 1975Acct:[id number] Age/Sex: 49 / MADM Date: 08/29/24 Loc: .CT Attending Dr: Hazel Anna MD Ordering Physician: Hazel Anna MD Date of Service: 08/29/24 Procedure(s): CT abdomen w IV con Accession Number(s): [id number] cc: Hazel Anna MD; Hanna Ocasio MD Report Number: [id number]: Total DLP = 429.00 mGy-cm EXAMINATION: CT ABDOMEN WITH CONTRAST CLINICAL INFORMATION: K74.69 - Other cirrhosis of liver COMPARISON: April 25, 2024 DLP: 429 mGY*cm TECHNIQUE: Contiguous axial thin section helical images of the abdomen were performed following the administration of 85 mL mL of Omnipaque 350 intravenous contrast. The data set was reformatted in the coronal and sagittal planes and reviewed on an independent workstation. This CT examination was performed using dose optimization techniques as appropriate, variously including the following: *Automated exposure control *Adjustment of mA and/or kV according to patient size (this includes techniques or standardized protocols for targeted exams where dose is matched to indication/reason for exam; i.e. extremities or head) *Use of iterative reconstruction technique FINDINGS: LUNG BASES: Clear LIVER, GALLBLADDER, AND BILIARY TREE: The liver has a nodular scalloped margin, as previous described. There is atrophy, more pronounced in the left hepatic lobe. No hyperenhancing lesions are identified. There is recanalization of the umbilical vein. There are up hill esophageal varicosities posterior to the distal esophagus. Right and left portal veins are patent. Contrast is also seen in the right, middle, and left hepatic veins. There is trace ascites and teja mesentery. There is gallbladder wall thickening and pericholecystic fluid. There are 3 calcified stones visible gallbladder. PANCREAS: Unremarkable SPLEEN: 18.5 cm, previously 17.9 cm. ADRENAL GLANDS AND KIDNEYS: 8 mm fat density mass in the superior left kidney is consistent with a small angiomyolipoma. Kidneys are otherwise unremarkable. BOWEL LOOPS: Unremarkable LYMPH NODES: No adenopathy. VASCULAR: Unremarkable, aside from vessels in the liver section. BONES: Moderate to severe multilevel degenerative disc disease and facet arthropathy is again noted in thoracolumbar spine with anterior bridging osteophytes CT/CT abdomen w IV con IMPRESSION: Cirrhosis with probable portal hypertension. There is a recanalized umbilical vein and up hill esophageal varicosities. Splenomegaly is probably mildly increased Cholelithiasis. Gallbladder wall thickening and pericholecystic fluid is stable and probably secondary to hypoalbuminemia. Fleischner guidelines were followed. Electronically signed by: Luciano Vera MD 08/29/2024 04:38 PM EDT Dictated By: Luciano Vera MD Signed By: <Electronically signed by Luciano Vera MD in OV> 08/29/24 1638 DD/ 1533 TD/TT: 08/29/24 1618 [place] Attendant: [facility] External Provider IMG CT PROCEDURES Final Result * Chlamydia/Trichomonas/Neisseria gonorrhoeae, PCR, Urine (08/29/2024 8:29 AM EDT) CT PCR, Urine NOT DETECTED Not Detect. [facility] Comment:A not detected test result does not exclude the possibilityof infection because test results can be affected byimproper specimen collection, concurrent antibiotic therapy,or the number of organisms in the specimen which may bebelow the sensitivity of the test. As with many diagnostictests, results from the Xpert CT/NG assay should beinterpreted in conjunction with other laboratory andclinical data available to the clinician.The Xpert CT/NG assay should not be used for the evaluationof suspected sexual abuse or for other medico-legalindications. Additional testing is recommended in anycircumstance when false positive or false negative resultscould lead to adverse medical, social or psychologicalconsequences. NG PCR, Urine NOT DETECTED Not Detect. [facility] Comment:A not detected test result does not exclude the possibilityof infection because test results can be affected byimproper specimen collection, concurrent antibiotic therapy,or the number of organisms in the specimen which may bebelow the sensitivity of the test. As with many diagnostictests, results from the Xpert CT/NG assay should beinterpreted in conjunction with other laboratory andclinical data available to the clinician.The Xpert CT/NG assay should not be used for the evaluationof suspected sexual abuse or for other medico-legalindications. Additional testing is recommended in anycircumstance when false positive or false negative resultscould lead to adverse medical, social or psychologicalconsequences. 08/29/2024 8:29 AM EDT 08/29/2024 11:58 AM EDT us Hanna Ocasio MD LAB URINE ORDERABLES Final Resul t [facility] [address] [place] [phone] * Syphilis Screen (08/29/2024 8:29 AM EDT) Syphilis Screen Nonreactive Nonreactive [facility] 08/29/2024 8:29 AM EDT 08/29/2024 11:32 AM EDT Hanna Ocasio MD LAB BLOOD ORDERABLES Final Resul t Performing Organization Address City/[facility]/ZIP Co de Phone Number [facility] [address] [place] [address] [phone] * Vitamin D, 25-Hydroxy, Total, Immunoassay (08/29/2024 8:29 AM EDT) Vitamin D 25-OH Total 31.1 >30 ng/mL [facility] Comment: Health Based Reference Values*< 20 ng/mL Uxznipioc95-45 ng/mL Insufficient> 30 ng/mL Sufficient*Dylon RAMAN. N Engl J Med. 2007;357:266-280There is no well-established upper level of normal vitamin Dlevels. Some laboratories use 50 ng/mL as an upper limit ofnormal. However, toxicity is patient-dependent and may occurat any level. Careful correlation with the patient'spresentation is necessary and, if there is concern forvitamin D toxicity, treatment should be consideredirrespective of the serum level.Care must be taken in interpreting Vitamin D results fromdifferent laboratories and methodologies. Published datademonstrated that results from patients undergoinghemodialysis may show a negative bias when tested withvarious automated 25-OH vitamin D assays when compared toLC-MS/MS.When testing samples from patients whose predominant form ofVitamin D is Vitamin D2, such as patients receiving VitaminD2 supplementation, results that are subtherapeutic shouldbe confirmed with another method such as LC-MS/MS. Blood Venous blood specimen / Unknown 08/29/2024 8:29 AM EDT 08/29/2024 11:32 AM EDT Hanna Ocasio MD LAB BLOOD ORDERABLES Final Resul t Performing Organization Address [facility]/ZIP Co de Phone Number [facility] [address] [place] [phone] [phone] * TSH with Reflex to Free T4 (08/29/2024 8:29 AM EDT) TSH reflex Free T4 3.45 0.32 - 4.0 uIU/mL [facility] Blood 08/29/2024 8:29 AM EDT 08/29/2024 11:32 AM EDT Hanna Ocasio MD LAB BLOOD ORDERABLES Final Resul t Performing Organization Address [facility] de Phone Number [facility] [address] [place] [phone] * (ABNORMAL) Lipid Panel with Reflex to Direct LDL (08/29/2024 8:29 AM EDT) Triglycerides 81 <150 mg/dL [facility] Comment:Desirable Triglyceri de: less than 150 mg/dLBorderline High Triglyceride 150-199 mg/dLHigh Triglyceride: 200-499 mg/dLVery High Triglyceride: greater than or equal to 5OO mg/dL Cholesterol 182 <200 mg/dL [facility] Comment:Desirable Cholestero l: less than 200 mg/dLBorderline High Cholesterol: 200-239 mg/dLHigh Cholesterol: greater than 239 mg/dL LDL Cholesterol Calculated 116(H) <100 mg/dL [facility] Comment:Desirable LDL: less than 100 mg/dLNear Optimal/Above Optimal LDL: 110- 129 mg/dLBorderline High LDL: 130-159 mg/dLHigh LDL: 160-189 mg/dLVery High LDL: greater than or equal to 190 mg/dL HDL Cholesterol 50 >40 mg/dL [facility] Comment:Desirable HDL: great er than 40 mg/dL Note: This HDL assay may give artificially low results in patients with liver disease. Blood 08/29/2024 8:29 AM EDT 08/29/2024 11:32 AM EDT Hanna Ocasio MD LAB BLOOD ORDERABLES Final Resul t Performing Organization Address [facility] Co de Phone Number [facility] [address] [place] [phone] * Albumin, Random Urine W/Creatinine (08/29/2024 8:29 AM EDT) Creatinine, Urine 220.44 mg/dL [facility] Microalbumin Urine 14.0 mg/L [facility] Microalbum Creatinine Ratio Ur 6.3 <30 ug/mg cr [facility] Comment:Albumin/Creatinine R atio Reference Ranges: Normal: < 30 ug/mg creatinine Microalbuminuria: 30 - 300 ug/mg creatinineClinical Albuminuria: > 300 ug/mg creatinine Urine 08/29/2024 8:29 AM EDT 08/29/2024 11:20 AM EDT us Hanna Ocasio MD LAB URINE ORDERABLES Final Resul t [facility] [address] [place] [phone] * (ABNORMAL) CBC auto differential (08/29/2024 8:29 AM EDT) White Blood Count 6.0 4.8 - 10.8 X10*3/uL [facility] Red Blood Count 4.19(L) 4.60 - 5.80 X10*6/uL [facility] Hemoglobin 14.4 14.0 - 18.0 g/dl [facility] Hematocrit 41.6(L) 42.0 - 52.0 % [facility] Mean Corpuscular Volume 99.3(H) 80.0 - 98.0 fL [facility] Mean Corpuscular Hemoglobin 34.4(H) 27.0 - 33.0 pg [facility] Mean Corpuscular HGB Conc 34.6 31.0 - 36.0 g/dl [facility] Red Cell Distribution Width 17.2(H) 11.0 - 16.0 % [facility] Platelet Count 94(L) 160 - 400 X10*3/uL [facility] Mean Platelet Volume 11.6 9.4 - 12.4 fL [facility] Neutrophils Percent Auto 51.9 45 - 73 % [facility] Imm Gran Pct Auto 0.2 0.0 - 0.4 % [facility] Lymphocytes Percent Auto 36.2 20 - 40 % [facility] Monocytes Percent Auto 9.2 2 - 11 % [facility] Eosinophils Percent Auto 2.2 0 - 4 % [facility] Basophils Percent Auto 0.3 0 - 2 % [facility] NRBC Pct Auto 0.0 0.0 - 0.2 /100WBC [facility] Neutrophils Absolute Auto 3.1 2.0 - 8.3 x10*3/uL [facility] Imm Gran Abs Auto 0.01 0.00 - 0.03 X10*3/uL [facility] Lymphocytes Absolute Auto 2.2 1.2 - 4.9 X10*3/uL [facility] Monocytes Absolute Auto 0.6 0.1 - 1.2 X10*3/uL [facility] Eosinophils Absolute Auto 0.1 0.0 - 0.4 X10*3/uL [facility] Basophils Absolute Auto 0.0 0.0 - 0.2 X10*3/uL [facility] NRBC Abs Auto 0.000 0.0 - 0.012 X10*3/uL [facility] Blood Venous blood specimen / Unknown 08/29/2024 8:29 AM EDT 08/29/2024 11:29 AM EDT us Hanna Ocasio MD LAB BLOOD ORDERABLES Final Resul t [facility] [address] [place] [phone] * Hepatitis C Antibody with Reflex to HCV, RNA, Quantitative, Real-Time PCR (08/29/2024 8:29 AM EDT) Hepatitis C Antibody Nonreactive Nonreactive [facility] Comment:Antibodies to HCV no t detected; does not exclude early acuteHCV infection. Venous blood specimen / Unknown 08/29/2024 8:29 AM EDT 08/29/2024 11:32 AM EDT us Hanna Ocasio MD LAB BLOOD ORDERABLES Final Resul t Performing Organization Address City/[facility]/ZIP Co de Phone Number [facility] [address] [place] [phone] * Hepatitis B surface antigen, EIA (08/29/2024 8:29 AM EDT) Hepatitis B Surface Ag Negative Negative [facility] Venous blood specimen / Unknown 08/29/2024 8:29 AM EDT 08/29/2024 11:32 AM EDT Hanna Ocasio MD LAB BLOOD ORDERABLES Final Resul t Performing Organization Address [facility] de Phone Number [facility] [address] [place] [phone] * HIV-1/2 Antigen and Antibodies, Fourth Generation, with Reflexes (08/29/2024 8:29 AM EDT) HIV AB/AG Nonreactive Nonreactive [facility] Comment:HIV-1 p24 Ag and/or HIV-1/HIV-2 Ab not detected.A test result that is nonreactive does not exclude thepossibility of exposure to or infection with HIV-1 and/orHIV-2. Nonreactive results in this assay for individualswith prior exposure to HIV-1 and/or HIV-2 may be due toantigen and antibody levels that are below the limit ofdetection of this assay.The [employer] HIV Ag/Ab Combo assay result andsupplemental assay results should be interpreted inconjunction with the patient's clinical presentation,history and other laboratory results. If the results areinconsistent with clinical evidence, additional testing issuggested to confirm the result. Venous blood specimen / Unknown 08/29/2024 8:29 AM EDT 08/29/2024 11:32 AM EDT Hanna Ocasio MD LAB BLOOD ORDERABLES Final Resul t Performing Organization Address [facility] Co de Phone Number [facility] [address] [place] [phone] * (ABNORMAL) Prothrombin Time-INR (08/29/2024 8:29 AM EDT) Prothrombin Time 16.3(H) 10.9 - 12.4 SEC [facility] INTERNATIONAL NORM RATIO 1.4(H) 0.9 - 1.1 [facility] Comment:INTERNATIONAL NORMAL IZED RATIO (INR) REFERENCE RANGES Reference RangeFor patients not on anticoagulant therapy: 0.9 - 1.1INR ranges for oral anticoagulanttherapy:For prevention and treatment of venous thrombosis and pulmonary embolism: 2.0 - 3.0For acute myocardial infarction with aspirin therapy: 2.0 - 3.0For acute myocardial infarction without aspirin therapy: 3.0 - 4.0For patients with mechanical prosthetic heart valves: 2.5 - 3.5 Blood Venous blood specimen / Unknown 08/29/2024 8:29 AM EDT 08/29/2024 11:29 AM EDT Hanna Ocasio MD LAB BLOOD ORDERABLES Final Resul t Performing Organization Address [facility] Co de Phone Number [facility] [address] [place] [phone] * Testosterone, Total, males (Adult), IA (08/29/2024 8:29 AM EDT) Testosterone, Total 451 250 - 1100 ng/dL [facility] Comment:For additional infor mation, please refer tohttp://education.[employer]/faq/[email or web address](This link is being provided for informational/educational purposes only.)This test was developed and its analytical performancecharacteristics have been determined by [employer] [place], [place]. It hasnot been cleared or approved by the U.S. Food and DrugAdministration. This assay has been validated pursuantto the CLIA regulations and is used for clinicalpurposes.THIS TEST WAS PERFORMED AT:[employer]/[facility] [place] [id number] MALIK MD,PHD 08/29/2024 8:29 AM EDT 08/29/2024 11:32 AM EDT us Generic External Data Provider LAB BLOOD ORDERAB LES Final Result Performing Organization Address [facility] Co de Phone Number [facility] [address] [place] [phone] * PSA,Total (08/29/2024 8:29 AM EDT) Pathologist [facility] Prostate Specific Antigen 0.19 <0.05 - 4.0 ng/mL [facility] Comment:PSA methodology: Abb quyen Alijoshuaty i ChemiluminescentMicroparticle Immunoassay (CMIA) 08/29/2024 8:29 AM EDT 08/29/2024 11:32 AM EDT Generic External Data Provider LAB BLOOD ORDERAB LES Final Result Performing Organization Address [facility] de Phone Number [facility] [address] [place] [phone] * (ABNORMAL) Hepatic Function Panel (08/29/2024 8:29 AM EDT) Bilirubin, Total 2.0(H) 0.0 - 1.0 mg/dL [facility] Comment:Slight Icterus. Bilirubin, Direct 1.0(H) 0.0 - 0.5 mg/dL [facility] Comment:Slight Icterus. Aspartate Amino Transferase 100(H) 5 - 37 U/L [facility] Alanine Aminotransferase 50(H) 0 - 40 U/L [facility] Total Protein 7.8 6.5 - 8.0 g/dL [facility] Albumin Level 2.9(L) 3.5 - 5.0 g/dL [facility] Alkaline Phosphatase 158(H) 39 - 117 U/L [facility] Blood Venous blood specimen / Unknown 08/29/2024 8:29 AM EDT 08/29/2024 11:32 AM EDT Hanna Ocasio MD LAB BLOOD ORDERABLES Final Resul t Performing Organization Address [facility] de Phone Number [facility] [address] [place] [phone] * (ABNORMAL) Basic Metabolic Panel (08/29/2024 8:29 AM EDT) Sodium 140 135 - 145 mmol/L [facility] Potassium 3.6 3.3 - 5.1 mmol/L [facility] Chloride 108 96 - 108 mmol/L [facility] Carbon Dioxide 25 22 - 29 mmol/L [facility] Anion Gap 11(L) 12 - 20 [facility] Urea Nitrogen (BUN) 9 9 - 16 mg/dL [facility] Creatinine, Serum 0.54 0.5 - 1.4 mg/dL [facility] Creatinine Clr Calc Pharmacy TNP [facility] Comment:Unable to calculate eCrCL; all parameters not provided. Estimated Glomerular Filt Rate >60 [facility] Comment:Chronic Kidney Disea se: Estimated GFR < 60 mL/min/1.54k8Azxcqd Kidney Disease: Estimated GFR < 15 mL/min/1.73m2 Glucose 108 60 - 115 mg/dL [facility] Calcium 8.3(L) 8.4 - 10.2 mg/dL [facility] Blood Venous blood specimen / Unknown 08/29/2024 8:29 AM EDT 08/29/2024 11:32 AM EDT Hanna Ocasio MD LAB BLOOD ORDERABLES Final Resul t Performing Organization Address [facility]/ZIP Co de Phone Number [facility] [address] [place] [phone] * POCT glycosylated hemoglobin (Hgb A1c) (08/01/2024 3:59 PM EDT) Hemoglobin A1C 5.8 4.0 - 6.0 % QC Media Lot # [id number] Lot# Expiration Date ,[id number] Blood Capillary blood specimen / Unknown 08/01/2024 3:59 PM EDT Hanna Ocasio MD POINT OF CARE TEST ENTER/EDIT OR DERABLES Final Result from Last 3 Months or Most Recently Relevant to Health Maintenance Insurance # [address] [place] [address] [facility] C[facility] DENTAL-[employer] [facility] [facility] MEDICAID STAND ADULT Care Teams Leather Case Finisher Relationship Specialty Start Date End Date Hanna Ocasio MD [address] [place] [address] PCP - General Family Medicine 02/16/18 Christian Villagomez, PharmD [address] [place] [address] Pharmacist Internal Medicine 03/18/22 Jhonathan Engel Ballistic TechnicianRounder And Backer 05/11/23
--- OUTSIDE RECORDS SUMMARY | 2024-11-09 12:17 | XMS_ITS | Encounter Summary ---
Author Organization [employer] Address [address] [place] [address] Care Team Providers Care Division Roadmaster Name Role Phone Hanna Ocasio MD Primary Care Provider [phone] Christian Villagomez PharmD Unavailable [phone] Reason for Visit * Reason Onset Date Comments triage 02/18/2022 Encounter Details Date Type Department Care Team ([facility] st Contact Info) Description 02/18/2022 Telephone [facility] [address] [place] [address] Hanna Ocasio MD [address] [place], [place] [phone] triage Social History Tobacco Use Types Packs/Day Years Used Date Smoking Tobacco: Some Days Cigarettes Comments:2-3 cigarettes per week Sex and Gender Information Value Date Recorded [...] suspected to have Coronavirus/COVID-19? No / Unsure 02/03/2022 10:16 AM EST documented as of this encounter Miscellaneous Notes * Telephone Encounter - Sri Rodriguez RN - 02/18/2022 2:04 PM EST Pt wants new Rx for CPAP sent as machine out of order. * Telephone Encounter - Sri Rodriguez RN - 02/18/2022 1:51 PM EST Spoke with patient , reports CPAP machine is not working properly. Pt recently traveled to [place]. Currently there and hs been without CPAP machine x 3 days having having bilateral leg edema. Pt having some redness on eye. Pt reports having swelling below the knee. Pt reports on left leg has some redness on skin. Pt denies any SOB or CP. Denies any fever. BS last night was 161. Pt has not checked BS or BP today. Pt currently in [place]. Pt will be back in 12 days. Pt advised to seek Care in UC or ER at [place] if sx worsen. IF any Cp or SOB. Pt to also call CPAP supplier to see if able to repair machine. Pt wants to have new CPAP Rx sent by PCP. Will send to PA specialist to review Protocol Used: Leg Swelling and Edema (Adult) Protocol-Based Disposition: See in Office or Video Visit Today Override (Final) Disposition: Go to ED/[facility]CC Now (or to Office with PCP Approval) Override Reason: Patient out of town Positive Triage Question: * Moderate swelling of both ankles (e.g., swelling extends up to the knees) AND new-onset or worsening * All higher-acuity triage questions were negative Care Advice Discussed: * Leg Swelling or Edema * Reasons To Call Back - You become worse * Telephone Encounter - Lakeisha Pandey - 02/18/2022 12:58 PM EST Symptoms: Sleeping Difficulty, Leg Swelling - Not From Injury and eye discharge Outcome: Schedule an appointment to be seen within 24 hours Reason: No high acuity concerns reported by caller The caller accepted this outcome documented in this encounter Plan of Treatment Upcoming Encounters Date Type Department Care Team (Late st Contact Info) Description 11/25/2024 3:15 PM EDT Office Visit [address] [address] Tasha Sargent MD [address] [place], [place] [phone] documented as of this encounter Visit Diagnoses Not on filedocumented in this encounter Care Teams Division Roadmaster Relationship Specialty Start Date End Date Hanna Ocasio MD [address] [place] [phone] PCP - General Family Medicine 02/16/18 Christian Villagomez, KingsleyD [address] [place] [address] [phone] Pharmacist Internal Medicine 03/18/22 Jhonathan Engel Suppression Crew LeaderSupervisor Customer Records Division 05/11/23 documented as of this encounter
--- OUTSIDE RECORDS SUMMARY | 2024-11-09 12:17 | XMS_ITS | Encounter Summary ---
Author Organization [employer] Address [address] [facility] [address] [place] [address] Care Team Providers Care Assistant Professor Of Psychology Name Role Phone Hanna Ocasio MD Primary Care Provider [phone] Christian Villagomez PharmD Unavailable [phone] Encounter Details Date Type Department Care Team (Late st Contact Info) Description 06/05/[address] [facility] [address], [place] [phone] Hanna Ocasio MD [address], [place] [phone] Other cirrhosis of liver (CMS/HCC) (Primary Dx); Dyslipidemia Social History Tobacco Use Types Packs/Day [...] PM EDT Office Visit [facility] [address] [place] [address] Tasha Sargent MD [address] [place] [address] documented as of this encounter Goals Goal Patient Goal Type Associated Problems Recent Progress Patient-Stated? Author Blood Pressure < 140/90 Blood Pressure 128/86(2024 3:50 PM EDT) No Christian Villagomez, Madhavi Hemoglobin A1c < 7 Result Component 5.8( 3:59 PM EDT) No Christian Villagomez PharmD documented as of this encounter Procedures Procedure Name Priority Date/Time Associated Diagnosis Comments LIPID PANEL WITH REFLEX TO DIRECT LDL Routine 10/15/2023 9:55 AM EDT Other cirrhosis of liver (CMS/HCC) Dyslipidemia CBC WITH AUTO DIFFERENTIAL Routine 10/15/2023 9:55 AM EDT Other cirrhosis of liver (CMS/HCC) COMPREHENSIVE METABOLIC PANEL Routine 10/15/2023 9:55 AM EDT Other cirrhosis of liver (CMS/HCC) documented in this encounter Results * (ABNORMAL) CBC auto differential (10/15/2023 9:55 AM EDT) White Blood Count 5.1 4.8 - 10.8 X10*3/uL [facility] Red Blood Count 3.92(L) 4.60 - 5.80 X10*6/uL [facility] Hemoglobin 14.0 14.0 - 18.0 g/dl [facility] Hematocrit 40.0(L) 42.0 - 52.0 % [facility] Mean Corpuscular Volume 102.0(H) 80.0 - 98.0 fL [facility] Mean Corpuscular Hemoglobin 35.7(H) 27.0 - 33.0 pg [facility] Mean Corpuscular HGB Conc 35.0 31.0 - 36.0 g/dl [facility] Red Cell Distribution Width 14.8 11.0 - 16.0 % [facility] Platelet Count 86(L) 160 - 400 X10*3/uL [facility] Mean Platelet Volume 11.1 9.4 - 12.4 fL [facility] Neutrophils Percent Auto 55.6 45 - 73 % [facility] Imm Gran Pct Auto 0.2 0.0 - 0.4 % [facility] Lymphocytes Percent Auto 30.5 20 - 40 % [facility] Monocytes Percent Auto 10.5 2 - 11 % [facility] Eosinophils Percent Auto 2.8 0 - 4 % [facility] Basophils Percent Auto 0.4 0 - 2 % [facility] NRBC Pct Auto 0.0 0.0 - 0.2 /100WBC [facility] Neutrophils Absolute Auto 2.8 2.0 - 8.3 x10*3/uL [facility] Imm Gran Abs Auto 0.01 0.00 - 0.03 X10*3/uL [facility] Lymphocytes Absolute Auto 1.5 1.2 - 4.9 X10*3/uL [facility] Monocytes Absolute Auto 0.5 0.1 - 1.2 X10*3/uL [facility] Eosinophils Absolute Auto 0.1 0.0 - 0.4 X10*3/uL [facility] Basophils Absolute Auto 0.0 0.0 - 0.2 X10*3/uL [facility] NRBC Abs Auto 0.000 0.0 - 0.012 X10*3/uL [facility] Blood Venous blood specimen / Unknown 10/15/2023 9:55 AM EDT 10/15/2023 11:05 AM EDT us Hanna Ocasio MD LAB BLOOD ORDERABLES Final Resul t [facility] [address] [place] [phone] * (ABNORMAL) Comprehensive Metabolic Panel (10/15/2023 9:55 AM EDT) Sodium 139 135 - 145 mmol/L [facility] Potassium 3.9 3.3 - 5.1 mmol/L [facility] Chloride 109(H) 96 - 108 mmol/L [facility] Carbon Dioxide 24 22 - 29 mmol/L [facility] Anion Gap 10(L) 12 - 20 [facility] Urea Nitrogen (BUN) 7(L) 9 - 16 mg/dL [facility] Creatinine, Serum 0.60 0.5 - 1.4 mg/dL [facility] Estimated Glomerular Filt Rate >60 [facility] Comment:NOTE: For -Am erican individuals, multiply the result by 1.210.Chronic Kidney Disease: Estimated GFR < 60 mL/min/1.82g1Nzzfdx Kidney Disease: Estimated GFR < 15 mL/min/1.73m2 Glucose 107 60 - 115 mg/dL [facility] Calcium 8.5 8.4 - 10.2 mg/dL [facility] Bilirubin, Total 2.0(H) 0.0 - 1.0 mg/dL [facility] Aspartate Amino Transferase 67(H) 5 - 37 U/L [facility] Alanine Aminotransferase 37 0 - 40 U/L [facility] Total Protein 7.5 6.5 - 8.0 g/dL [facility] Albumin Level 2.9(L) 3.5 - 5.0 g/dL [facility] Alkaline Phosphatase 127(H) 39 - 117 U/L [facility] Blood Venous blood specimen / Unknown 10/15/2023 9:55 AM EDT 10/15/2023 11:05 AM EDT us Hanna Ocasio MD LAB BLOOD ORDERABLES Final Resul t Performing Organization Address City/[facility]/ZIP Co de Phone Number [facility] [address] [place] [address] [phone] * Lipid Panel with Reflex to Direct LDL (10/15/2023 9:55 AM EDT) Triglycerides 61 <150 mg/dL [facility] Comment:Desirable Triglyceri de: less than 150 mg/dLBorderline High Triglyceride 150-199 mg/dLHigh Triglyceride: 200-499 mg/dLVery High Triglyceride: greater than or equal to 5OO mg/dL Cholesterol 150 <200 mg/dL [facility] Comment:Desirable Cholestero l: less than 200 mg/dLBorderline High Cholesterol: 200-239 mg/dLHigh Cholesterol: greater than 239 mg/dL LDL Cholesterol Calculated 84 <100 mg/dL [facility] Comment:Desirable LDL: less than 100 mg/dLNear Optimal/Above Optimal LDL: 110- 129 mg/dLBorderline High LDL: 130-159 mg/dLHigh LDL: 160-189 mg/dLVery High LDL: greater than or equal to 190 mg/dL HDL Cholesterol 54 >40 mg/dL [facility] Comment:Desirable HDL: great er than 40 mg/dL Note: This HDL assay may give artificially low results in patients with liver disease. Blood 10/15/2023 9:55 AM EDT 10/15/2023 11:05 AM EDT us Hanna Ocasio MD LAB BLOOD ORDERABLES Final Resul t [facility] [address] [place] [phone] documented in this encounter Visit Diagnoses Diagnosis Other cirrhosis of liver (CMS/HCC)- Primary Dyslipidemia Other and unspecified hyperlipidemia documented in this encounter Additional Health Concerns Assessment Noted Time PHQ-9 Depression Total Score: 0 06/03/19 24 9:56 AM EDT documented as of this encounter Care Teams Assistant Professor Of Psychology Relationship Specialty Start Date End Date Hanna Ocasio MD [address] [place] [address] PCP - General Family Medicine 02/16/18 Christian Villagomez, KingsleyD [address] [place] [address] Pharmacist Internal Medicine 03/18/22 Jhonathan Engel [employer] 05/11/23 documented as of this encounter
--- OUTSIDE RECORDS SUMMARY | 2024-11-09 12:17 | XMS_ITS | Encounter Summary ---
Author Organization [employer] Address [address] [place] [address] Care Team Providers Care Coloring Room Man Name Role Phone Hanna Ocasio MD Primary Care Provider [phone] Christian Villagomez PharmD Unavailable [phone] Reason for Visit * Reason Onset Date Comments Results 03/06/2023 Encounter Details Date Type Department Care Team ([facility] st Contact Info) Description 03/06/2023 Telephone [facility] [address] [place], [place] [phone] Hanna Ocasio MD [address] [place], [place] [phone] Results Social History Tobacco Use Types Packs/Day Years [...] got money to buy more: Never True 12/01/2022 Within the past 12 months,th e food you bought just didn't last and you didn't have enough money to get more: Never True Utilities Answer Date Recorded In the past 12 months, has t he electric, gas, oil or water company threatened to shut off services in your home? No 12/01/2022 Sex and Gender Information Value Date Recorded Sex Assigned at Male 12/16/2021 10:20 AM EDT Legal Sex Male 10:20 AM EDT Gender Identity Male 12/16/2021 10:20 AM EDT Sexual Orientation Straight 12/16/2021 10 :20 AM EDT documented as of this encounter Miscellaneous Notes * Telephone Encounter - Wilfredo Perez - 03/06/2023 8:13 AM EST TC from pt requesting call back regarding Results. Type of results: Lab Works Date when done: 02/26/2023 Facility: [facility] documented in this encounter Plan of Treatment Upcoming Encounters Date Type Department Care Team (Late st Contact Info) Description 11/25/2024 3:15 PM EDT Office Visit [facility] [address] [place] [phone] Tasha Sargent MD [address] [place] [phone] documented as of this encounter Goals Goal Patient Goal Type Associated Problems Recent Progress Patient-Stated? Author Blood Pressure < 140/90 Blood Pressure 128/86(2024 3:50 PM EDT) No Christian Villagomez PharmD Hemoglobin A1c < 7 Result Component 5.8( 3:59 PM EDT) No Christian Villagomez, Madhavi documented as of this encounter Visit Diagnoses Not on filedocumented in this encounter Care Teams Coloring Room Man Relationship Specialty Start Date End Date Hanna Ocasio MD [address] [place] [phone] PCP - General Family Medicine 02/16/18 Christian Villagomez PharmD [address] [place] [phone] Pharmacist Internal Medicine 03/18/22 Jhonathan Engel [employer] 05/11/23 documented as of this encounter
== END 2024-11-09 10:56 | disposition home or self-care (01) ==
LOC: HO.ENCR 10:03
PROVIDERS: PCP Family Medicine; Visit Provider Student in an Organized Health Care Education/Training Program
DX: N62 Hypertrophy of breast (principal)
CPT/HCPCS: 99204

== ENCOUNTER → 2024-11-09 10:02 | Outpatient (BNVA) | payer MEDICAID, SELFPAY | PROVIDERS: PCP Family Medicine; Visit Provider Student in an Organized Health Care Education/Training Program | DX: N62 Hypertrophy of breast (principal) | CPT/HCPCS: 99202 ==

== ENCOUNTER 2025-02-02 10:25 | Emergency (ER) | payer MEDICAID, SELFPAY ==
--- NOTE | ~2025-02-02 | MR_ITS ---
CLINICAL HISTORY: Abnormal hepatic us and CT, R O hepatocellular ca MR abdomen with and without gadolinium Comparison: CT/REG/SR - CT ABDOMEN PELVIS WITH IV CONTRAST - 02/02/25 15:15 EST Findings: LIVER: Nodular liver contour with T2 fibrosis and widening of the fissures. Segment 4A observation measuring 6 mm without arterial phase hyperenhancement or washout. Small volume ascites. BILIARY: Cholelithiasis. PANCREAS: No lesion, fluid collection, ductal dilatation, or atrophy. SPLEEN: Mild splenomegaly measuring 15 cm craniocaudal. KIDNEYS: No mass or obstruction. Small bilateral renal cysts. ADRENALS: No mass or enlargement. AORTA/VASCULAR: No aneurysm or dissection. Paraesophageal and gastric varices. RETROPERITONEUM: Luciano hepatis lymph nodes, measuring 1.3 cm. BOWEL/MESENTERY: No visible mass, obstruction, or bowel wall thickening. ABDOMINAL WALL: No mass or hernia. BONES: No bony lesion or fracture. LUNG BASES: No visible pleural disease. Lung bases not well assessed with MRI. OTHER: Negative. IMPRESSION: Cirrhosis with stigmata of portal hypertension. Segment 4A observation measuring 6 mm without arterial phase hyperenhancement or washout, LR-2. This document has been electronically signed by: Edwige Mullen MD on 02/02/2025 21:29:29
--- NOTE | ~2025-02-02 | XR_ITS ---
EXAMINATION: XR CHEST CLINICAL INFORMATION: CP, SOB COMPARISON: April 25, 2024 TECHNIQUE: PA and lateral views. FINDINGS: Poor inspiration. No consolidation pleural effusion or pneumothorax. Cardiomediastinal silhouette size is normal. Multilevel thoracolumbar spondylosis and kyphotic deformity mid to lower thoracic spine. S-shaped curvature of the mid thoracic spine. Patient's large body habitus/obesity. XR/XR chest 2V IMPRESSION: No acute airspace disease. Multilevel spondylosis and kyphotic deformity, similar since prior exam. Electronically signed by: Tyrese Monge MD 02/02/2025 10:56 AM JUDITH
--- NOTE | ~2025-02-02 | CT_ITS ---
EXAMINATION: CT ABDOMEN AND PELVIS WITH CONTRAST CLINICAL INFORMATION: Abnormal ultrasound abdomen. Questionable liver cancer. COMPARISON: August 29, 2024. Correlated to ultrasound dated February 02, 2025, limited. TECHNIQUE: Multidetector volumetric images were obtained from the superior aspect of the liver through the pubic symphysis following administration 85 mL of Omnipaque 350 intravenous contrast. Sagittal and coronal reformatted images were obtained on the technologist's workstation. Oral contrast: No This CT examination was performed using dose optimization techniques as appropriate, variously including the following: *Automated exposure control *Adjustment of mA and/or kV according to patient size (this includes techniques or standardized protocols for targeted exams where dose is matched to indication/reason for exam; i.e. extremities or head) *Use of iterative reconstruction technique DLP: 767 mGy-cm FINDINGS: Exam acquired during portal venous phase. LUNG BASES: No acute airspace disease or gross pulmonary nodules. LIVER, GALLBLADDER, AND BILIARY TREE: Liver measures 13 cm. Nodular surface. Main portal veins and main hepatic veins are patent. Intrahepatic portion of the IVC is patent. 3 mm hypodensity in the periphery of the right hepatic lobe too small to be fully characterized. No intrahepatic biliary ductal dilatation. Intraluminal calcifications in the gallbladder neck. No pericholecystic fluid collection. No gallbladder wall thickening. No extrahepatic biliary ductal dilatation. PANCREAS: No solid or cystic lesion. No main pancreatic ductal dilatation. No peripancreatic fluid collection. SPLEEN: 15 cm. No solid or cystic mass. ADRENAL GLANDS: No nodular lesions. KIDNEYS AND URETERS: No hydronephrosis. No gross nephrolithiasis. IV contrast in the urinary collecting system. Subcentimeter cysts, both kidneys. BLADDER: Fluid-filled. GASTROINTESTINAL TRACT: Gas and fluid-filled mildly prominent small bowel loops. Abundant stool. No intestinal wall thickening. No pneumatosis intestinalis. Appendix is normal. Ascites, moderate volume. No pneumoperitoneum. ABDOMINAL WALL: Fluid-filled umbilical hernia, small. LYMPH NODES: Prominent mesenteric and retroperitoneal lymph nodes. Prominent lymph nodes in the inguinal region and sissy iliac. VASCULAR: The umbilical vein is patent with small caliber. Multiple prominent vessels surrounding the gastroesophageal junction. Multiple prominent vessels in the mesentery draining and to the superior mesenteric vein and likely right femoral vein. No gross splenorenal shunting. No aneurysm or dissection abdominal aorta. PELVIC VISCERA: Not enlarged. OSSEOUS STRUCTURES: Multilevel thoracolumbar spondylosis resulting in grade 1 retrolisthesis L1 to, L2-3 levels. Facet joint hypertrophy at L4-5-5 S1. Spina bifida occulta, S1. Nonspecific 5 mm faint blastic lesion posterior right iliac bone. CT/CT abdomen pelvis w IV con IMPRESSION: Cirrhosis with ascites, gastroesophageal varices and mesentery shunting. Concerning for portal hypertension. Clinical concern for hepatocellular carcinoma. Recommend dedicated dynamic enhanced MRI liver versus triphasic liver CT. Cholelithiasis. Prominent mesenteric and retroperitoneal lymph nodes, nonspecific. Spontaneous bacterial peritonitis cannot be excluded. Multilevel thoracolumbar spondylosis.. Fleischner guidelines were followed. Electronically signed by: Tyrese Monge MD 02/02/2025 04:01 PM JUDITH
--- NOTE | ~2025-02-02 | US_ITS ---
EXAMINATION: US ABDOMEN LIMITED HISTORY: Abdominal pain, elevated LFTs. TECHNIQUE: Real-time grayscale ultrasound imaging of the liver and gallbladder was performed and images were reviewed. COMPARISON: Comparison is made with the prior examination dated 04/01/2023. FINDINGS: Liver: The liver is normal in size, but demonstrates a nodular contour, consistent with cirrhosis. The liver demonstrates normal homogeneous echotexture. There is a 10 mm cyst in the left lobe. A 1.8 x 1.4 x 1.9 cm echogenic lesion is seen at the dome. No intrahepatic biliary ductal dilatation is identified. There is normal hepatopedal flow in the portal vein. Gallbladder and biliary tree: There is cholelithiasis. There is no wall thickening or pericholecystic fluid. There is no sonographic Hdz sign. The common bile duct is normal in caliber measuring 4 mm in diameter. There is a small amount of perihepatic ascites. US/US abdomen limited IMPRESSION: 1. Cirrhosis of the liver. 1.8 x 1.4 x 1.9 cm echogenic mass at the dome. Given the findings of cirrhosis, liver MRI without and with contrast is recommended to exclude hepatocellular carcinoma. 2. Cholelithiasis. Electronically signed by: Gaurang Sánchez MD 02/02/2025 01:55 PM EST
--- NOTE | 2025-02-02 10:28 | ECG_ITS ---
Test Reason : chest pain Blood Pressure : */* mmHG Vent. Rate : 65 BPM Atrial Rate : 65 BPM P-R Int : 132 ms QRS Dur : 80 ms QT Int : 436 ms P-R-T Axes : 37 21 31 degrees QTcB Int : 453 ms Normal sinus rhythm Normal ECG When compared with ECG of 25-Apr-2024 14:24, Vent. rate has decreased by 33 bpm Referred By: Generic ED Physician Electronically Signed By: Triston Mas
[2025-02-02 10:36] VITALS: BP 170/74; PULSE 66; RESP 20; TEMP 36.8; O2SAT 99; BMI 35.9
--- NOTE | 2025-02-02 10:38 | ED.URI ---
HPI - URI/Sore Throat General Chief Complaint: General Medical Stated Complaint: chest pain, neck pain, fever Time Seen by Provider: 02/02/25 12:37 Source: patient and motion picture director Mode of arrival: ambulatory Limitations: no limitations History of Present Illness ED Provider: DR. Bhandari HPI Narrative: A 49-year-old male PMHx HTN, DM, fatty liver. came in for evaluation of multiple symptoms. Chest pain or chest tightness started 2-3 days ago accompanied with cough and shortness of breath, +productive cough with clear sputum, pain is constant more at nighttime because more coughing, patient also is complaining of right upper quadrant/right flank pain with burning sensation with urination, patient also been having nonbloody watery diarrhea no recent travel, no recent use of antibiotic, diarrhea was described as yellow loose stool x2 today. Patient's son has influenza at home. Related Data Home Medications ?Medication ?Instructions ?Recorded ?Confirmed lancets 33 gauge (TRUEplus Lancets) #100 ea 11/15/19 11/09/24 pen needle, diabetic 32 gauge x #50 ea 11/15/19 11/09/24/ (Unifine Pentips) blood sugar diagnostic (FreeStyle #10 ea 05/03/21 11/09/24 Lite Strips) fluticasone propionate 50 1 spray intranasal DAILY 08/09/21 11/09/24 mcg/actuation nasal spray,suspension lidocaine 5 % topical patch 1 patch topical DAILY PRN Pain 08/09/21 11/09/24 (Lidoderm) metoprolol succinate 50 mg 50 mg PO DAILY 08/09/21 11/09/24 tablet,extended release 24 hr montelukast 10 mg tablet 10 mg PO BEDTIME PRN Allergy 03/17/22 11/09/24 Symptoms chlorthalidone 25 mg tablet 12.5 mg PO DAILY 11/17/22 11/09/24 cholecalciferol (vitamin D3) 50 50 mcg PO DAILY 04/26/24 11/09/24 mcg (2,000 unit) capsule (Vitamin D3) multivitamin 1 tab PO DAILY 04/26/24 11/09/24 rosuvastatin 5 mg tablet 5 mg PO DAILY 04/26/24 11/09/24 cetirizine 10 mg tablet 10 mg PO BEDTIME PRN allergy 11/09/24 11/09/24 symptoms Previous Rx's ?Medication ?Instructions ?Recorded acetaminophen 500 mg tablet 500 mg PO Q6H PRN pain or fever 12/24/19 (Tylenol Extra Strength) #20 tabs sucralfate 1 gram tablet 1 g PO QID #28 tabs 09/01/24 tadalafil 10 mg tablet 10 mg PO DAILY sexual activity 90 09/15/24 days #90 tabs tadalafil 20 mg tablet 20 mg PO ONCE PRN sexual activity 09/15/24 30 days #30 tabs tamsulosin 0.4 mg capsule 0.4 mg PO DAILY 90 days #90 caps 09/15/24 omeprazole 40 mg capsule,delayed 40 mg PO BID #180 caps 09/19/24 release albuterol sulfate 2.5 mg/3 mL 2.5 mg (3 mL) inhalation Q4-6H PRN 02/02/25 (0.083 %) solution for nebulization shortness of breath or wheezing #75 mL albuterol sulfate 90 mcg/actuation 1 inh inhalation Q4-6H PRN 02/02/25 breath activated powder inhaler shortness of breath or wheezing #1 ea codeine 8 mg-guaifenesin 200 mg/5 5 ml PO Q6H PRN cough #473 mL 02/02/25 mL oral liquid prednisone 20 mg tablet 20 mg PO BID #10 tabs 02/02/25 Allergies Allergy/AdvReac Type Severity Reaction Status Date / Time ranitidine (From ZANTAC) Allergy Severe DIFFICULTY Verified 02/02/25 10:40 BREATHING, ITCHING Review of Systems Review of Systems: All other systems are reviewed and are negative Constitutional: Reports as per HPI and Reports no additional constitutional complaints Eyes: Reports as per HPI and Reports no additional eye complaints Reports system reviewed and no additional complaints, except as documented Cardiovascular: Reports as per HPI and Reports no additional cardiovascular complaints Respiratory: Reports as per HPI and Reports no additional respiratory complaints Gastrointestinal: Reports as per HPI and Reports no additional gastrointestinal complaints Genitourinary: Reports no additional female genitourinary complaints Musculoskeletal: Reports no additional musculoskeletal complaints Skin/Breast: Reports system reviewed and no additional complaints, except as docu Psychiatric: Reports no additional psychiatric complaints Endocrine: Reports no additional endocrine complaints Hematologic/Lymphatic: Reports no additional hematologic/lymphatic complaints Allergic/Immunologic: Reports no additional allergic/immunologic complaints Reports system reviewed and no additional complaints, except as documented and Reports Abnormal speech present [facility] Past Medical History Medical History Obesity (BMI 30-39.9) Morbid obesity Gross hematuria Lipoma of neck On beta alma at home History of tachycardia Subcutaneous mass of neck Obesity Hx of gastritis History of anxiety History of depression COVID-19 Colitis Gallstones Asthma HTN (hypertension) Fatty liver Dysuria Arthritis Diabetes GERD (gastroesophageal reflux disease) OLIVER on CPAP Chronic back pain Cirrhosis Surgical History Hx of elbow surgery S/P cubital tunnel release History of esophagogastroduodenoscopy (EGD) History of left knee surgery Family History Family History Father No problems noted. Mother HTN (hypertension) Sister Type II diabetes mellitus Social History Social History Household Members: Family Housing: House Are you a primary healthcare account manager to a significant other at home: No Do you presently have visiting nurse or other home services: No Alcohol intake: current Alcohol intake frequency: does not drink Alcohol type: beer Patient Tobacco Use Status: Current someday Tobacco user Tobacco use type: Cigarette Smoked in Last 30 Days: Yes e-Cigarette/Vaping Use: Never Used Use of substances other than those prescribed or required for medical reasons: No Substance Use Type: Crack/Cocaine Advance Directives: No Advance Directives Information Provided: Yes service: No Current occupational status: unemployed and disabled Physical Exam Vital Signs: Vital Signs: Last Vital Signs Temp 98.6 F 02/02/25 19:04 Pulse 81 02/02/25 19:04 Resp 18 02/02/25 19:04 BP 142/76 H 02/02/25 19:04 Pulse Ox 97 02/02/25 19:04 O2 Del Method Room Air 02/02/25 19:04 O2 Flow Rate 6 02/02/25 13:11 BMI result Body Mass Index 35.9 Vital signs have been reviewed and appear to be correct. Blood pressure elevated. Heart rate normal. Respiratory rate normal. Temperature normal. Oxygen saturation normal. Appearance: Alert. Oriented X3. No acute distress. Head: Normal external exam. Normocephalic. Atraumatic. No Pereyra signs noted. No raccoon eyes noted Eyes: PERRLA. EOMI. Conjunctiva and sclera normal. Eyelids normal. ENT: TM's Normal. Pharynx normal. Uvula midline. Moist mucous membranes. No trismus noted. No drooling noted. No muffled voice noted. Neck: Normal inspection. Neck supple. FROM. No adenopathy. Thyroid Normal. No meningeal signs. No neck mass noted. CVS: Normal heart rate and rhythm. Heart sound normal. No murmurs noted. Pulses normal throughout. Respiratory: No respiratory distress. Painless inspiration. Breath sounds normal. No wheezes/rales/rhonchi noted. Chest nontender. No accessory muscle usage noted or decreased air movement noted. Abdomen: Soft and nontender. Bowel sounds normal in all 4 quadrants. No distention noted. No organomegaly noted. No visible injury noted. Back: No CVA tenderness. Full range of motion noted. Skin: Skin warm and dry. Normal skin color. Normal skin turgor. No rashes/lesions/lacerations noted. Extremities: No lower extremity edema. Extremities exhibit normal range of motion. Extremities nontender. Neuro: Oriented X 3. Cranial nerve exam: II-XII are grossly intact No motor deficit. No sensory deficit. Reflexes normal. Course Course Course Narrative: This is an RME: Additional HPI, ROS, PE not included below will be deferred to primary provider. RME assessment and note performed by: Jessica Kaur PA-C This is a 77-fstz-xap-male, with a hx of HTN, diabetes, who presents to the ER with complaints of chest pain, shortness of breath, cough, dizziness, chills, and right sided abdominal pain. Reports dysuria. Also endorsing diarrhea. BP elevated at 170/74, all other vitals WNL. Endorsing sick contacts at home. Plan: Viral swabs, CXR, labs, EKG, further ER eval needed. Reevaluation(s) Reevaluation #1: This is a 49-year-old male came in for evaluation of upper respiratory symptoms, physical exam reveals acute bronchitis, patient feels better with bronchodilator and prednisone. Ultrasound/CT abdomen pelvis reveals liver cirrhosis and ascites MRI is recommended to rule out hepatic carcinoma of the liver. Patient is getting his MRI tonight await for the result signed out to Dr. Rodriguez to follow-up on the MRI and dispo accordingly. Time: 20:21 Medications Administered Discontinued Medications Generic Name Dose Route Start Last Admin Trade Name Bladimir PRN Reason Stop Dose Admin Albuterol Sulfate 2.5 mg/ 0 mg 02/02/25 13:03 02/02/25 13:08 Albuterol/Ipratropium 3 ml INHALE 02/02/25 13:04 5 dose ONCE ONE Administration Gadobutrol 10 ml 02/02/25 20:47 02/02/25 20:47 Gadobutrol 10 Ml Vial IVPUSH 02/02/25 20:48 10 ml ONCE ONE Administration Iohexol 100 ml 02/02/25 15:21 02/02/25 15:21 Iohexol 350 Mg/Ml 100 Ml Infus..Btl IV 02/02/25 15:22 85 ml ONCE ONE Administration Methylprednisolone Sodium Succinate 60 mg 02/02/25 12:53 02/02/25 13:18 Methylprednisolone Sod Succ 125 Mg/2 Ml Vial IVPUSH 02/02/25 12:54 60 mg ONCE ONE Administration Medical Decision Making Medical Decision Making [facility] Narrative: I received sign-out from my colleague Dr. Bhandari - MRI shows cirrhosis with stigmata of portal hypertension. - I discussed the MRI results with the patient. Patient states that he is aware that he does have both of those conditions and sees Dr. Anna from Gastroenterology. - I had a conversation with the patient regarding changes in his diet. Patient known to have ZACARIAS patient denies any abdominal pain. Patient requesting a prescription for his albuterol both pump and neb treatments and a cough syrup Differential Diagnosis Differential Diagnoses: The differential diagnosis associated with the presentation includes (Pneumonia, pneumothorax, pleural effusion, influenza, COVID-19 infection, Zacarias, hepatocellular carcinoma, electrolyte derangement, severe anemia.) Admission/Observation Consideration of admission/observation: Escalation of care including admission/observation considered Lab Data [facility] Lab Attestation statement: I reviewed the patient's lab results. 02/02/25 10:48 02/02/25 10:48 Labs: Lab Results 02/02/25 02/02/25 02/02/25 Range/Units 10:48 13:12 18:19 WBC 4.5 L (4.8-10.8) X10*3/uL RBC 3.91 L (4.60-5.80) X10*6/uL Hgb 13.7 L (14.0-18.0) g/dl Hct 39.7 L (42.0-52.0) % MCV 101.5 H (80.0-98.0) fL MCH 35.0 H (27.0-33.0) pg MCHC 34.5 (31.0-36.0) g/dl RDW 16.2 H (11.0-16.0) % Plt Count 73 L (160-400) X10*3/uL MPV 11.0 (9.4-12.4) fL Immature Gran % (Auto) 0.2 (0.0-0.4) % Neut % (Auto) 44.3 L (45-73) % Lymph % (Auto) 37.5 (20-40) % Emery % (Auto) 13.0 H (2-11) % Eos % (Auto) 4.6 H (0-4) % Baso % (Auto) 0.4 (0-2) % Lymph # (Auto) 1.7 (1.2-4.9) X10*3/uL Emery # (Auto) 0.6 (0.1-1.2) X10*3/uL Eos # (Auto) 0.2 (0.0-0.4) X10*3/uL Baso # (Auto) 0.0 (0.0-0.2) X10*3/uL Abs Immat Gran (auto) 0.01 (0.00-0.03) X10*3/uL Absolute Neuts (auto) 2.0 (2.0-8.3) x10*3/uL Absolute Nucleated RBC 0.000 (0.0-0.012) X10*3/uL Nucleated RBC % (auto) 0.0 (0.0-0.2) /100WBC Sodium 137 (135-145) mmol/L Potassium 3.6 (3.3-5.1) mmol/L Chloride 108 (96-108) mmol/L Carbon Dioxide 26 (22-29) mmol/L Anion Gap 7 L (12-20) BUN 7 L (9-16) mg/dL Creatinine 0.50 (0.5-1.4) mg/dL Estim Creat Clear Calc 214.3 Estimated GFR > 60 Random Glucose 137 H (60-115) mg/dL Calcium 7.7 L D (8.4-10.2) mg/dL Magnesium 1.7 (1.6-2.6) mg/dL Total Bilirubin 1.8 H (0.0-1.0) mg/dL Direct Bilirubin 1.0 H (0.0-0.5) mg/dL AST 118 H (5-37) U/L ALT 55 H (0-40) U/L Alkaline Phosphatase 170 H (39-117) U/L Troponin I High Sens < 2.7 < 2.7 (<3.5-35.0) ng/L Total Protein 7.1 (6.5-8.0) g/dL Albumin 2.6 L (3.5-5.0) g/dL Lipase 37 (8-78) U/L Urine Color Dark Yellow Urine Appearance Clear Urine pH 7.0 (5.0-9.0) Ur Specific [place] >= 1.030 H (1.005-1.025) Urine Protein Trace (Neg-Trace) mg/dL Urine Glucose (UA) 100 H (Negative) mg/dL Urine Ketones Trace (Negative) mg/dL Urine Blood Trace H (Negative) Urine Nitrite Negative (Negative) Ur Leukocyte Esterase Negative (Negative) Urine RBC 6-10 H (0-2) /HPF Urine WBC 0-5 (0-5) /HPF Ur Squamous Epith Cells 0-2 (0-2) /HPF Urine Bacteria None Seen (None Seen) Hyaline Casts 0-2 (0-2) /LPF Influenza Type A (PCR) NEGATIVE (Negative) Influenza Type B (PCR) NEGATIVE (Negative) RSV RNA Qual (PCR) NEGATIVE (Negative) SARS-CoV-2 RNA (RT-PCR) NEGATIVE (Negative) S. pyogenes GrpA TALON Negative (Negative) Independent Interpretation I performed an independent interpretation of an: Plain X-Ray (Chest:No acute airspace disease. Multilevel spondylosis and kyphotic deformity, similar since prior exam. ), Ultrasound (Abdominal ultrasound:1. Cirrhosis of the liver. 1.8 x 1.4 x 1.9 cm echogenic mass at the dome. Given the findings of cirrhosis, liver MRI without and with contrast is recommended to exclude hepatocellular carcinoma. 2. Cholelithiasis.) and CT Scan (Abdomen pelvis:irrhosis with ascites, gastroesophageal varices and mesentery shunting. Concerning for portal hypertension. Clinical concern for hepatocellular carcinoma. Recommend dedicated dynamic enhanced MRI liver versus triphasic liver CT. Cholelithiasis. Prominent mesenteric and retrope) Radiology Impression Discussion of test interpretation with radiology: I have reviewed the radiologist's reading. Discharge Plan Discharge Clinical Impression: Acute bronchitis, Cirrhosis of liver Patient Disposition: Home, Self-Care Instructions: Acute Bronchitis (ED), Ascites (ED) Additional Instructions: Please follow-up with your primary care physician tomorrow. If you have any worsening or new symptoms, please return to the emergency room or call 911 Prescriptions: New albuterol sulfate 90 mcg/actuation aerosol powdr breath activated 1 inh inhalation Q4-6H PRN (Reason: shortness of breath or wheezing) Qty: 1 0RF prednisone 20 mg tablet 20 mg PO BID Qty: 10 0RF albuterol sulfate 2.5 mg /3 mL (0.083 %) solution for nebulization 2.5 mg inhalation Q4-6H PRN (Reason: shortness of breath or wheezing) Qty: 75 0RF codeine-guaifenesin 8-200 mg/5 mL liquid 5 ml PO Q6H PRN (Reason: cough) Qty: 473 0RF Rx Instructions: keep away from children and pets No Action sucralfate 1 gram tablet 1 g PO QID Qty: 28 0RF omeprazole 40 mg capsule,delayed release(DR/EC) 40 mg PO BID Qty: 180 0RF acetaminophen [Tylenol Extra Strength] 500 mg tablet 500 mg PO Q6H PRN (Reason: pain or fever) Qty: 20 0RF montelukast 10 mg tablet 10 mg PO BEDTIME PRN (Reason: Allergy Symptoms) multivitamin Tablet 1 tab PO DAILY rosuvastatin 5 mg tablet 5 mg PO DAILY cholecalciferol (vitamin D3) [Vitamin D3] 50 mcg (2,000 unit) capsule 50 mcg PO DAILY (DME) pen needle, diabetic [Unifine Pentips] 32 gauge x 5/32 needle See Rx Instructions .ROUTE .MEDSUPPLY Qty: 50 Rx Instructions: As directed (DME) lancets [TRUEplus Lancets] 33 gauge misc See Rx Instructions .ROUTE .MEDSUPPLY Qty: 100 Rx Instructions: As directed (DME) FreeStyle Lite Strips Strip See Rx Instructions Not Applicable QID Qty: 10 Rx Instructions: As directed lidocaine [Lidoderm] 5 % adhesive patch,medicated 1 patch topical DAILY PRN (Reason: Pain) fluticasone propionate 50 mcg/actuation spray,suspension 1 spray intranasal DAILY metoprolol succinate 50 mg tablet extended release 24 hr 50 mg PO DAILY chlorthalidone 25 mg tablet 12.5 mg PO DAILY cetirizine 10 mg tablet 10 mg PO BEDTIME PRN (Reason: allergy symptoms) tadalafil 20 mg tablet 20 mg PO ONCE PRN (Reason: sexual activity) 30 Days Qty: 30 1RF Rx Instructions: On demand medication take 60 minutes before intended activity tadalafil 10 mg tablet 10 mg PO DAILY 90 Days Qty: 90 1RF Rx Instructions: Daily medication - tamsulosin 0.4 mg capsule 0.4 mg PO DAILY 90 Days Qty: 90 1RF Referrals: Hanna Ocasio MD [Primary Care Provider, Internal Medicine] Print Language: Polish
[2025-02-02 11:01] LABS: MANUAL DIFF FLAG NO
[2025-02-02 11:02] LABS: Hematocrit 39.7 % (42.0-52.0); Hemoglobin 13.7 g/dl (14.0-18.0); Imm Gran Abs Auto 0.01 X10*3/uL (0.00-0.03); Imm Gran Pct Auto 0.2 % (0.0-0.4); Lymphocytes Absolute Auto 1.7 X10*3/uL (1.2-4.9); Mean Corpuscular HGB Conc 34.5 g/dl (31.0-36.0); Mean Corpuscular Hemoglobin 35.0 pg (27.0-33.0); Mean Corpuscular Volume 101.5 fL (80.0-98.0); NRBC Abs Auto 0.000 X10*3/uL (0.0-0.012); NRBC Pct Auto 0.0 /100WBC (0.0-0.2); Red Blood Count 3.91 X10*6/uL (4.60-5.80); White Blood Count 4.5 X10*3/uL (4.8-10.8)
[2025-02-02 11:03] LABS: Platelet Count 73 X10*3/uL (160-400)
[2025-02-02 11:12] LABS: Strep A Nucleic Acid Negative (Negative)
[2025-02-02 11:21] LABS: Alanine Aminotransferase 55 U/L (0-40); Albumin Level 2.6 g/dL (3.5-5.0); Alkaline Phosphatase 170 U/L (39-117); Anion Gap 7 (12-20); Aspartate Amino Transferase 118 U/L (5-37); Blood Urea Nitrogen 7 mg/dL (9-16); Calcium 7.7 mg/dL (8.4-10.2); Carbon Dioxide 26 mmol/L (22-29); Chloride 108 mmol/L (96-108); Creatinine Clr Calc Pharmacy 214.3; Estimated Glomerular Filt Rate > 60; Lipase 37 U/L (8-78); Magnesium 1.7 mg/dL (1.6-2.6); Potassium 3.6 mmol/L (3.3-5.1); Sodium 137 mmol/L (135-145); Total Protein 7.1 g/dL (6.5-8.0)
[2025-02-02 11:29] LABS: Troponin-I High Sensitivity < 2.7 ng/L (<3.5-35.0)
[2025-02-02 11:45] LABS: Resp Syncy Virus RNA Qual PCR NEGATIVE (Negative); SARS COV2 PCR INHOUSE NEGATIVE (Negative)
[2025-02-02 13:08] VITALS: PULSE 63; RESP 16; O2SAT 100
[2025-02-02] MEDS: Albuterol Sulfate 2.5 MG, Albuterol/Iprat 2.5/0.5MG 3 ML 3 ML INHALE (13:08)
[2025-02-02 13:11] VITALS: BP 140/75; PULSE 64; RESP 20; O2SAT 100
--- NOTE | 2025-02-02 13:26 | MHC.EDTECH ---
EKG delayed due to pt being taken for imaging and xray.
--- OUTSIDE RECORDS SUMMARY | 2025-02-02 13:43 | XMS_ITS | Encounter Summary ---
Author Organization [employer] Address [address] [place] [address] Care Team Providers Care Upper Cutter Out Name Role Phone Hanna Ocasio MD Primary Care Provider [phone] Christian Villagomez PharmD Unavailable [phone] Encounter Details Date Type Department Care Team ([facility] st Contact Info) Description 08/30/2024 Orders Only [facility] MEDICINE [address] [place], [place] [phone] Hanna Ocasio MD [address] [place], [place] [phone] Social History Tobacco Use Types Packs/Day Years [...] Care Team (Late st Contact Info) Description 02/15/2025 9:45 AM EST Office Visit [facility] MEDICINE [address] [place] [address] Hanna Ocasio MD [address] [place] [phone] documented as of this encounter Goals Goal [...] documented as of this encounter Care Teams Upper Cutter Out Relationship Specialty Start Date End Date Hanna Ocasio MD [address] [place] [phone] PCP - General Family Medicine 02/16/18 Christian Villagomez PharmD [address] [place], [place] [address]Markos [place] [address] Pharmacist Internal Medicine 03/18/22 Jhonathan Engel Animal SitterOrganizational Development Consultant 05/11/23 documented as of this encounter
--- OUTSIDE RECORDS SUMMARY | 2025-02-02 13:43 | XMS_ITS | Encounter Summary ---
Author Organization [employer] Address [address] [facility] 7t [place] [address] Care Team Providers Care Conference Center Manager Name Role Phone Hanna Ocasio MD Primary Care Provider [phone] Christian Villagomez PharmD Unavailable [phone] Reason for Visit * Reason Comments Med Refill Encounter Details Date Type Department Care Team ([facility] Contact Info) Description 12/30/2023 Refill [facility] [address] [place] [address] La Schmidt MD [address] [place], [place] [phone] Social History Tobacco Use Types Packs/Day Years [...] Description 02/15/2025 9:45 AM EST Office Visit [facility] [address] [place] [phone] Hanna Ocasio MD [address] [place] [phone] documented as of this encounter Goals Goal [...] documented as of this encounter Care Teams Conference Center Manager Relationship Specialty Start Date End Date Hanna Ocasio MD [address] [place] [address] [phone] PCP - General Family Medicine 02/16/18 Christian Villagomez PharmD [address] [place] [address] Pharmacist Internal Medicine 03/18/22 Jhonathan Engel Wire Mill OperatorPublication Distributor 05/11/23 documented as of this encounter
--- OUTSIDE RECORDS SUMMARY | 2025-02-02 13:43 | XMS_ITS | Encounter Summary ---
Author Organization [employer] Address [address] [facility] 7t [place] [address] Care Team Providers Care Commercial Photographer Name Role Phone Hanna Ocasio MD Primary Care Provider [phone] Christian Villagomez PharmD Unavailable [phone] Reason for Visit * Reason Comments Med Refill Encounter Details Date Type Department Care Team ([facility] Contact Info) Description 12/29/2023 Refill [facility] [address] [place] [address] La Schmidt MD [address] [place], [place] [phone] Social History Tobacco Use Types Packs/Day Years [...] Description 02/15/2025 9:45 AM EST Office Visit [facility] [address] [place] [phone] Hanna Ocasio MD [address] [place] [phone] documented as of this encounter Goals Goal [...] documented as of this encounter Care Teams Commercial Photographer Relationship Specialty Start Date End Date Hanna Ocasio MD [address] [place] [address] [phone] PCP - General Family Medicine 02/16/18 Christian Villagomez PharmD [address] [place] [phone] Pharmacist Internal Medicine 03/18/22 Jhonathan Engel Helper Maintenance CleaningMortgage Sales Manager 05/11/23 documented as of this encounter
--- OUTSIDE RECORDS SUMMARY | 2025-02-02 13:43 | XMS_ITS | Encounter Summary ---
Author Organization [employer] Address [address] [place] [address] Care Team Providers Care Special Procedures Tech Name Role Phone Hanna Ocasio MD Primary Care Provider [phone] Christian Villagomez PharmD Unavailable [phone] Reason for Visit * Reason Onset Date Comments Med Refill 07/05/2024 Encounter Details Date Type Department Care Team (Late st Contact Info) Description 07/05/2024 Telephone [facility] MEDICINE [address] [place], [place] [phone] Hanna Ocasio MD [address] [place], [place] [phone] Med Refill Social History Tobacco Use Types [...] Continuous Glucose Sensor (FreeStyle Estela 2 Sensor) [facility] To be sent to: [facility] pharmacy documented in this encounter Plan of Treatment Upcoming Encounters Date Type Department Care Team (Late st Contact Info) Description 02/15/2025 9:45 AM EST Office Visit [facility] MEDICINE [address] [place], [place] [phone] Hanna Ocasio MD [address] [place] [address] documented as of this encounter Goals Goal [...] documented as of this encounter Care Teams Special Procedures Tech Relationship Specialty Start Date End Date Hanna Ocasio MD [address] [place] [address] PCP - General Family Medicine 02/16/18 Christian Villagomez, Madhavi [address] [place] [address] Pharmacist Internal Medicine 03/18/22 Jhonathan Engel Paper Bag InspectorBottle Label Inspector 05/11/23 documented as of this encounter
--- OUTSIDE RECORDS SUMMARY | 2025-02-02 13:43 | XMS_ITS | Encounter Summary ---
Author Organization [employer] Address [address] [place] [address] Care Team Providers Care Grave Cleaner Name Role Phone Hanna Ocasio MD Primary Care Provider [phone] Christian Villagomez PharmD Unavailable [phone] Reason for Visit * Reason Comments Med Refill Encounter Details Date Type Department Care Team ([facility] st Contact Info) Description 01/30/2025 Refill [facility] MEDICINE [address] [place], [place] [phone] Hanna Ocasio MD [address] [place], [place] [phone] Social History Tobacco Use Types Packs/Day Years [...] Description 02/15/2025 9:45 AM EST Office Visit [facility] [address] [place] [phone] Hanna Ocasio MD [address] [place] [address] documented as of this encounter Goals Goal [...] documented as of this encounter Care Teams Grave Cleaner Relationship Specialty Start Date End Date Hanna Ocasio MD [address] [place] [phone] PCP - General Family Medicine 02/16/18 Christian Villagomez, PharmD [address] [place] [phone] Pharmacist Internal Medicine 03/18/22 Jhonathan Engel Ceramic Engineering ProfessorReal Estate Paralegal 05/11/23 documented as of this encounter
--- OUTSIDE RECORDS SUMMARY | 2025-02-02 13:43 | XMS_ITS | Encounter Summary ---
Author Organization [email or web address] Address [address] [place] [address] Care Team Providers Care Jewel Inspector Name Role Phone Hanna Ocasio MD Primary Care Provider [phone] Christian Villagomez PharmD Unavailable [phone] Encounter Details Date Type Department Care Team (Late st Contact Info) Description 11/26/2022 Orders Only [facility] MED[facility]INE [address] [place], [place] [phone] Hanna Ocasio MD [address] [place] [address] Pain in left leg; Chronic low back [...] t he electric, gas, oil or water [employer] threatened to shut off services in your [...] Description 02/15/2025 9:45 AM EST Office Visit [facility] [address] [place] [address] Hanna Ocasio MD [address] [place] [address] documented as of this encounter Goals Goal [...] (Batres) (01/28/2023 1:26 PM EST) IDNOW SERIAL# [id number] [facility] Influenza A Negative Negative [facility] Influenza B2 Negative Negative [facility] Influenza A B2 Note See Note [facility] Comment:The Batres ID NOW In fluenza [...] 1:26 PM EST 01/28/2023 1:36 PM EST Generic External Data Provider LAB MICROBIOLOGY - GENERAL ORDERABLES Final Result [facility] [address] [place] [address] [phone] * COVID-19 ID NOW (BATRES) (01/28/2023 1:26 PM EST) IDNOW SERIAL# [id number] [facility] COVID-19 TEST Negative Negative [facility] COVID-19 NOTE See Note [facility] Comment: Results are for the identification of SARS-CoV2 RNA. TheSARS-CoV2 RNA is generally detectable in respiratory samplesduring the acute phase of infection. Positive results areindicative of the presence of SARS-CoV-2 RNA; clinicalcorrelation with patient history and other diagnosticinformation is necessary to determine patient infectionstatus. Positive results do not rule out bacterial infectionor co- infection with other viruses.Testing facilities within the [facility] and itsterritories are required to report all positive results [...] LAB MOLECULAR ABBEY GNOSTICS ORDERABLES Final Result [facility] [address] [place] [address] [phone] documented in this encounter Visit Diagnoses Diagnosis Pain in left leg Chronic low back pain, unspecified back pain laterality, unspecified whether sciatica present documented in this encounter Care Teams Jewel Inspector Relationship Specialty Start Date End Date Hanna Ocasio MD [address] [place] [address] PCP - General Family Medicine 02/16/18 Christian Villagomez, KingsleyD [address] [place] [address] Pharmacist Internal Medicine 03/18/22 Jhonathan Engel Solar Panel InstallerCompass Operator 05/11/23 documented as of this encounter
--- OUTSIDE RECORDS SUMMARY | 2025-02-02 13:43 | XMS_ITS | Encounter Summary ---
Author Organization [employer] Address [address] [facility] 7t [place] [address] Care Team Providers Care Firmware Software Verification Engineer Name Role Phone Hanna Ocasio MD Primary Care Provider [phone] Christian Villagomez PharmD Unavailable [phone] Reason for Referral * Consultation (Routine) - Closed Specialty Diagnoses / Procedures Referred By Contac t Referred To Contact Pharmacy Diagnoses Type 2 diabetes mellitus with other specified complication, with long-term current use of insulin (HCC) Primary hypertension Dyslipidemia Hanna Ocasio MD [address] [place] [address] Phone: tel: fax: Referral ID Status Reason Start Date Expiration Date V isits Requested Visits Authorized [id number] Closed Continuity of Care 05/16/2024 05/16/2025 6 6 Encounter Details Date Type Department Care Team (Late st Contact Info) Description 05/16/2024 Orders Only [facility] MEDICINE [address] [place], [place] [phone] Hanna Ocasio MD [address] [place], [place] [phone] Type 2 diabetes mellitus with other specified [...] Description 02/15/2025 9:45 AM EST Office Visit [facility] MED[facility]INE [address] [place] [address] Hanna Ocasio MD [address] [place], [place] [phone] Scheduled Referrals Name Type Priority Associated Diagnoses Orde r Schedule Referral to Pharmacy MTM Outpatient Referral Routine Type 2 diabetes mellitus with other specified complication, with long-term current use of insulin ([facility]) Primary hypertension Dyslipidemia Ordered: 05/16/2024 [...] complication, with long-term current use of insulin ([facility])- Primary Primary hypertension Unspecified essential hypertension Dyslipidemia Other and unspecified hyperlipidemia documented in this encounter Additional Health Concerns Assessment Noted Time PHQ-9 Depression Total Score: 17 024 2:27 PM EDT documented as of this encounter Care Teams Firmware Software Verification Engineer Relationship Specialty Start Date End Date Hanna Ocasio MD [address] [place] [address] PCP - General Family Medicine 02/16/18 Christian Villagomez PharmD [address] [place] [address] Pharmacist Internal Medicine 03/18/22 Jhonathan Engel Mortgage Protection SalesDrapery Maker 05/11/23 documented as of this encounter
--- OUTSIDE RECORDS SUMMARY | 2025-02-02 13:43 | XMS_ITS | Encounter Summary ---
Author Organization [employer] Address [address] [facility] [address] [address] Care Team Providers Care Director Of Financial Reporting Name Role Phone Hanna Ocasio MD Primary Care Provider [phone] Christian Villagomez PharmD Unavailable [phone] Reason for Visit * Reason Comments Med Refill Encounter Details Date Type Department Care Team ([facility] st Contact Info) Description 11/29/2023 Refill [facility] MEDICINE [address] [place], [place] [phone] Hanna Ocasio MD [address] [place], [place] [phone] Social History Tobacco Use Types Packs/Day Years [...] Description 02/15/2025 9:45 AM EST Office Visit [facility] MED[facility]INE [address] [place] [address] Hanna Ocasio MD [address] [place] [phone] documented as of this encounter Goals Goal [...] documented as of this encounter Care Teams Director Of Financial Reporting Relationship Specialty Start Date End Date Hanna Ocasio MD [address] [place] [phone] PCP - General Family Medicine 02/16/18 Christian Villagomez PharmD [address] [place] [phone] Pharmacist Internal Medicine 03/18/22 Jhonathan Engel Lever MillerEvent Promoter 05/11/23 documented as of this encounter
--- OUTSIDE RECORDS SUMMARY | 2025-02-02 13:43 | XMS_ITS | Encounter Summary ---
Author Organization [employer] Address [address] [facility] [address] [place] [address] Care Team Providers Care Video Tape Duplicator Name Role Phone Hanna Ocasio MD Primary Care Provider [phone] Christian Villagomez PharmD Unavailable [phone] Encounter Details Date Type Department Care Team (Late st Contact Info) Description 02/02/2025 Orders Only [facility] External Provider, [facility] Social History Tobacco Use Types Packs/Day Years [...] Description 02/15/2025 9:45 AM EST Office Visit [facility] MEDICINE [address] [place], [place] [phone] Hanna Ocasio MD [address] [place] [address] documented as of this encounter Goals Goal Patient Goal Type Associated Problems Recent Progress Patient-Stated? Author Blood Pressure < 140/90 Blood Pressure 128/86(2024 3:50 PM EDT) No Christian Villagomez PharmD Hemoglobin A1c < 7 Result Component 5.8( 3:59 PM EDT) No Christian Villagomez PharmD documented as of this encounter Procedures Procedure Name Priority Date/Time Associated Diagnosis Comments XR CHEST 2 VIEWS Routine 02/02/2025 10:5 1 AM EST STREP A NUCLEIC ACID Routine 02/02/2025 10:48 AM EST HIGH SENSITIVITY TROPONIN I Routine 02/02/2025 10:48 AM EST SARS COV2/INFLUENZA A/B AND RSV RNA QL NAAT Routine 02/02/2025 10:48 AM EST CBC WITH AUTO DIFFERENTIAL Routine 02/02/2025 10:48 AM EST MAGNESIUM Routine 02/02/2025 10:48 AM EST LIPASE Routine 02/02/2025 10:48 AM EST HEPATIC FUNCTION PANEL Routine 02/02/2025 10:48 AM EST BASIC METABOLIC PANEL Routine 02/02/2025 10:48 AM EST documented in this encounter Results * XR Chest 2 Views (02/02/2025 10:51 AM EST) Anatomical Region Laterality Modality Chest Radiographic Shanda ging 02/02/2025 10:5 1 AM EST Narrative 02/02/2025 10:59 AM EST [address] [address] XRay Report Signed Patient: Christian Tan MR#: [id number] : 1975 Acct:[id number] Age/Sex: 49 / M ADM Date: 02/02/25 Loc: HO.ED Attending Dr: Ordering Physician: Jessica Kaur Date of Service: 02/02/25 Procedure(s): XR chest 2V Accession Number(s): [id number] cc: Hanna Ocasio MD; Jessica Kaur Reason for Exam: CP, SOB EXAMINATION: XR CHEST CLINICAL INFORMATION: CP, SOB COMPARISON: April 25, 2024 TECHNIQUE: PA and lateral views. FINDINGS: Poor inspiration. No consolidation pleural effusion or pneumothorax. Cardiomediastinal silhouette size is normal. Multilevel thoracolumbar spondylosis and kyphotic deformity mid to lower thoracic spine. S-shaped curvature of the mid thoracic spine. Patient's large body habitus/obesity. XR/XR chest 2V IMPRESSION: No acute airspace disease. Multilevel spondylosis and kyphotic deformity, similar since prior exam. Electronically signed by: Tyrese Monge MD 02/02/2025 10:56 AM EST Dictated By: Tyrese Carlton MD Signed By: <Electronically signed by Tyrese Reyna MD in OV> 02/02/25 1056 DD/ 1051 TD/TT: 02/02/25 1052 Gas Adjuster: Procedure Note Donotuseinterpreter, Image - 02/02/[address] [address] XRay Report Signed Patient: Christian TanMR#: [id number] : 1975Acct:[id number] Age/Sex: 49 / MADM Date: 02/02/25 Loc: HO.ED Attending Dr: Ordering Physician: Jessica Kaur Date of Service: 02/02/25 Procedure(s): XR chest 2V Accession Number(s): [id number] cc: Hanna Ocasio MD; Jessica Kaur Reason for Exam: CP, SOB EXAMINATION: XR CHEST CLINICAL INFORMATION: CP, SOB COMPARISON: April 25, 2024 TECHNIQUE: PA and lateral views. FINDINGS: Poor inspiration. No consolidation pleural effusion or pneumothorax. Cardiomediastinal silhouette size is normal. Multilevel thoracolumbar spondylosis and kyphotic deformity mid to lower thoracic spine. S-shaped curvature of the mid thoracic spine. Patient's large body habitus/obesity. XR/XR chest 2V IMPRESSION: No acute airspace disease. Multilevel spondylosis and kyphotic deformity, similar since prior exam. Electronically signed by: Tyrese Monge MD 02/02/2025 10:56 AM EST Dictated By: Tyrese Carlton MD Signed By: <Electronically signed by Tyrese Reyna MDin OV> 02/02/25 1056 DD/ 1051 TD/TT: 02/02/25 1052 Gas Adjuster: [facility] External Provider IMG XR PROCEDURES Edited Result - Final * SARS-CoV-2 RNA, Influenza A/B, and RSV RNA, Ql NAAT (02/02/2025 10:48 AM EST) Influenza A PCR NEGATIVE Negative [facility] Influenza B PCR NEGATIVE Negative [facility] Resp Syncy Virus RNA Qual PCR NEGATIVE Negative [facility] SARS COV2 PCR NEGATIVE Negative [facility] Comment:All test results mus t be correlated with clinical findings.Negative results do not preclude SARS-CoV2, influenza Avirus, influenza B virus and/or RSV infectionand should not be used as the sole basis for treatment orother patient management decisions. Negative results must becombined with clinical observations, patient history, andepidemiological information.This test has not been evaluated for monitoring treatment ofinfection.This test has been authorized by the FDA under an EmergencyUse Authorization (EUA) for use by authorized laboratories.Testing performed on the [employer] GeneXpert utilizingreal-time RT-PCR.All SARS CoV2 and positive influenza A/B results arereported to [facility]. 02/02/2025 10:4 8 AM EST 02/02/2025 10:59 AM EST Generic External Data Provider LAB MICROBIOLOGY - GENERAL ORDERABLES Final Result Performing Organization Address City/[facility]/ZIP Co de Phone Number [facility] [address] [place] [phone] * High Sensitivity Troponin I (02/02/2025 10:48 AM EST) [facility] TROPONIN I HIGH SENSITIVITY <2.7 <3.5 - 35.0 ng/L [facility] Comment:The Fisher high sens itivity Troponin-I results should beused in conjunction with other diagnostic information suchas ECG, clinical observations and information, and patientsymptoms to aid in the diagnosis of [place]. 02/02/2025 10:4 8 AM EST 02/02/2025 10:59 AM EST us Generic External Data Provider LAB BLOOD ORDERAB LES Final Result Performing Organization Address [facility]/ZIP Co de Phone Number [facility] [address] [place] [phone] * Lipase (02/02/2025 10:48 AM EST) Pathologist [facility] Lipase 37 8 - 78 U/L [facility] 02/02/2025 10:4 8 AM EST 02/02/2025 10:59 AM EST us Generic External Data Provider LAB BLOOD ORDERAB LES Final Result Performing Organization Address [facility]/ZIP Co de Phone Number [facility] [address] [place] [phone] * Magnesium (02/02/2025 10:48 AM EST) [facility] Magnesium 1.7 1.6 - 2.6 mg/dL [facility] 02/02/2025 10:4 8 AM EST 02/02/2025 10:59 AM EST Generic External Data Provider LAB BLOOD ORDERAB LES Final Result Performing Organization Address [facility] de Phone Number [facility] [address] [place] [phone] * (ABNORMAL) Basic Metabolic Panel (02/02/2025 10:48 AM EST) [facility] Sodium 137 135 - 145 mmol/L [facility] Potassium 3.6 3.3 - 5.1 mmol/L [facility] Chloride 108 96 - 108 mmol/L [facility] Carbon Dioxide 26 22 - 29 mmol/L [facility] Anion Gap 7(L) 12 - 20 [facility] Urea Nitrogen (BUN) 7(L) 9 - 16 mg/dL [facility] Creatinine, Serum 0.50 0.5 - 1.4 mg/dL [facility] Creatinine Clr Calc Pharmacy 214.3 [facility] Comment:eGFR (calculated fro m the MDRD study equation) and eCrCl(calculated from the Cockcroft-Gault equation) are based ondifferent parameters and may not yield comparable results.If eCrCl result is absurd, please check patient'sheight/weight. Estimated Glomerular Filt Rate >60 [facility] Comment:Chronic Kidney Disea se: Estimated GFR < 60 mL/min/1.27n7Azhrzb Kidney Disease: Estimated GFR < 15 mL/min/1.73m2 Glucose 137(H) 60 - 115 mg/dL [facility] Calcium 7.7(L) 8.4 - 10.2 mg/dL [facility] 02/02/2025 10:4 8 AM EST 02/02/2025 10:59 AM EST Generic External Data Provider LAB BLOOD ORDERAB LES Final Result Performing Organization Address City/[facility]/ZIP Co de Phone Number [facility] [address] [place] [phone] * (ABNORMAL) Hepatic Function Panel (02/02/2025 10:48 AM EST) Bilirubin, Total 1.8(H) 0.0 - 1.0 mg/dL [facility] Bilirubin, Direct 1.0(H) 0.0 - 0.5 mg/dL [facility] Aspartate Amino Transferase 118(H) 5 - 37 U/L [facility] Alanine Aminotransferase 55(H) 0 - 40 U/L [facility] Total Protein 7.1 6.5 - 8.0 g/dL [facility] Albumin Level 2.6(L) 3.5 - 5.0 g/dL [facility] Alkaline Phosphatase 170(H) 39 - 117 U/L [facility] 02/02/2025 10:4 8 AM EST 02/02/2025 10:59 AM EST us Generic External Data Provider LAB BLOOD ORDERAB LES Final Result Performing Organization Address City/[facility]/ZIP Co de Phone Number [facility] [address] [place] [phone] * Strep A Nucleic Acid (02/02/2025 10:48 AM EST) IDNOW SERIAL# [id number] [facility] Strep A Nucleic Acid Negative Negative [facility] Comment:All test results mus t be correlated with clinical findings.This test has not been evaluated for monitoring treatment ofinfection.Additional follow-up testing using the culture method isrequired if the result is negative and clinical symptomspersist, or in the event of an acute rheumatic feveroutbreak. 02/02/2025 10:4 8 AM EST 02/02/2025 10:59 AM EST us Generic External Data Provider LAB MICROBIOLOGY - GENERAL ORDERABLES Final Result [facility] [address] [place] [address] [phone] * (ABNORMAL) CBC auto differential (02/02/2025 10:48 AM EST) White Blood Count 4.5(L) 4.8 - 10.8 X10*3/uL [facility] Red Blood Count 3.91(L) 4.60 - 5.80 X10*6/uL [facility] Hemoglobin 13.7(L) 14.0 - 18.0 g/dl [facility] Hematocrit 39.7(L) 42.0 - 52.0 % [facility] Mean Corpuscular Volume 101.5(H) 80.0 - 98.0 fL [facility] Mean Corpuscular Hemoglobin 35.0(H) 27.0 - 33.0 pg [facility] Mean Corpuscular HGB Conc 34.5 31.0 - 36.0 g/dl [facility] Red Cell Distribution Width 16.2(H) 11.0 - 16.0 % [facility] Platelet Count 73(L) 160 - 400 X10*3/uL [facility] Mean Platelet Volume 11.0 9.4 - 12.4 fL [facility] Neutrophils Percent Auto 44.3(L) 45 - 73 % [facility] Imm Gran Pct Auto 0.2 0.0 - 0.4 % [facility] Lymphocytes Percent Auto 37.5 20 - 40 % [facility] Monocytes Percent Auto 13.0(H) 2 - 11 % [facility] Eosinophils Percent Auto 4.6(H) 0 - 4 % [facility] Basophils Percent Auto 0.4 0 - 2 % [facility] NRBC Pct Auto 0.0 0.0 - 0.2 /100WBC [facility] Neutrophils Absolute Auto 2.0 2.0 - 8.3 x10*3/uL [facility] Imm Gran Abs Auto 0.01 0.00 - 0.03 X10*3/uL [facility] Lymphocytes Absolute Auto 1.7 1.2 - 4.9 X10*3/uL [facility] Monocytes Absolute Auto 0.6 0.1 - 1.2 X10*3/uL [facility] Eosinophils Absolute Auto 0.2 0.0 - 0.4 X10*3/uL [facility] Basophils Absolute Auto 0.0 0.0 - 0.2 X10*3/uL [facility] NRBC Abs Auto 0.000 0.0 - 0.012 X10*3/uL [facility] 02/02/2025 10:4 8 AM EST 02/02/2025 10:59 AM EST us Generic External Data Provider LAB BLOOD ORDERAB LES Final Result Performing Organization Address City/State/[facility] Co de Phone Number [facility] [address] [place] [phone] documented in this encounter Visit Diagnoses Not on filedocumented in this encounter Additional Health Concerns Assessment Noted Time PHQ-9 Depression Total Score: 19 08/08/ 025 10:42 AM EDT documented as of this encounter Care Teams Video Tape Duplicator Relationship Specialty Start Date End Date Hanna Ocasio MD [address] [place] [address] PCP - General Family Medicine 02/16/18 Christian Villagomez, PharmD [address] [place] [address] Pharmacist Internal Medicine 03/18/22 Jhonathan Engel Sciences DeanBody Shop Estimator 05/11/23 documented as of this encounter
--- OUTSIDE RECORDS SUMMARY | 2025-02-02 13:43 | XMS_ITS | Encounter Summary ---
Author Organization [employer] Address [address] [place] [address] Care Team Providers Care Electric Motor Repairing Supervisor Name Role Phone Hanna Ocasio MD Primary Care Provider [phone] Christian Villagomez PharmD Unavailable [phone] Reason for Visit * Reason Onset Date Comments Nurse Triage 02/02/2025 Encounter Details Date Type Department Care Team ([facility] st Contact Info) Description 02/02/2025 Telephone [facility] [address] [place], [place] [phone] Hanna Ocasio MD [address] [place], [place] [phone] Nurse Triage Social History Tobacco Use Types Packs/Day Years [...] encounter Miscellaneous Notes * Telephone Encounter - Fiorella Valdivia RN - 02/02/2025 9:52 AM [place] [id number] to triage for Cough, Chest Congestion, Sleeping Difficulty, Heartbeat Symptoms. Pt states that entire family has influenza A. For the last 3 days pt has been experiencing cough, congestion, and not sleeping due to discomfort. Pt is also experiencing mid sternal chest pain from coughing and SOB. Pt does not express any radiation to arm or jaw. Pt also experiencing diarrhea. Nurse and interpreters tried to clarify if pt had increased HR as pt was giving multiple numbers,unable to confirm O2 sat as well. Pt states he is experiencing SOB and whistling sound . Nurse advised pt to go to ED due to pt SOB. Pt agrees to plan. Protocol Used: Chest Pain (Adult) Protocol-Based Disposition: Go to ED Now Positive Triage Questions: * Difficulty breathing * Chest pain lasting longer than 5 minutes and occurred in last 3 days (72 hours) (Exception: Feelsexactly the same as previously diagnosed heartburn and has accompanying sour taste in mouth.) * Patient sounds very sick or weak to the triager * All higher-acuity triage questions were negative. Care Advice Discussed: * Reasons To Call Back - Chest pain increases in frequency, duration or severity - Chest pain lasts over 5 minutes - Chest pains persist over 3 days - You become worse * Telephone Encounter - Lotus Mireles - 02/02/2025 9:47 AM EST Symptoms: Cough, Chest Congestion, Sleeping Difficulty, Heartbeat Symptoms (Fast, Slow, or Irregular) Outcome: Transfer to a nurse or provider NOW! Reason: Chest pain documented in this encounter Plan of Treatment Upcoming Encounters Date Type Department Care Team (Late st Contact Info) Description 02/15/2025 9:45 AM EST Office Visit [facility] [address] [place] [phone] Hanna Ocasio MD [address] [place] [phone] documented as of this encounter Goals Goal [...] documented as of this encounter Care Teams Electric Motor Repairing Supervisor Relationship Specialty Start Date End Date Hanna Ocasio MD [address] [place] [phone] PCP - General Family Medicine 02/16/18 Christian Villagomez PharmD [address] [place] [phone] Pharmacist Internal Medicine 03/18/22 Jhonathan Engel Proof SorterCar Chaser 05/11/23 documented as of this encounter
--- OUTSIDE RECORDS SUMMARY | 2025-02-02 13:43 | XMS_ITS | Encounter Summary ---
Author Organization [employer] Address [address] 7t [place] [address] Care Team Providers Care Product Handler Name Role Phone Hanna Ocasio MD Primary Care Provider [phone] Christian Villagomez PharmD Unavailable [phone] Reason for Visit * Reason Onset Date Comments Appointment 06/25/2022 Encounter Details Date Type Department Care Team (Late st Contact Info) Description 06/25/2022 Telephone [facility] [address] [place] [address] Louie Hinton, DMD [address] [place], [place] [phone] Appointment Social History Tobacco Use Types Packs/Day [...] Cari Engel - 06/25/2022 8:24 AM EDT [employer] [facility] called and stated that crown will be in office on 07/08/2022 documented in this encounter Plan of Treatment Upcoming Encounters Date Type Department Care Team (Late st Contact Info) Description 02/15/2025 9:45 AM EST Office Visit [facility] [address] [place] [address] Hanna Ocasio MD [address] [place] [address] documented as of this encounter Goals Goal Patient Goal Type Associated Problems Recent Progress Patient-Stated? Author Blood Pressure < 140/90 Blood Pressure 128/86( 025 3:50 PM EDT) No Christian Villagomez, PharmD documented as of this encounter Visit Diagnoses Not on filedocumented in this encounter Care Teams Product Handler Relationship Specialty Start Date End Date Hanna Ocasio MD [address] [place], [place] [phone] PCP - General Family Medicine 02/16/18 Christian Villagomez, Madhavi [address] [place] [address] Pharmacist Internal Medicine 03/18/22 Jhonathan Engel Birthing NurseCake Knocker 05/11/23 documented as of this encounter
--- OUTSIDE RECORDS SUMMARY | 2025-02-02 13:43 | XMS_ITS | Encounter Summary ---
Author Organization [employer] Address [address]t [place] [address] Care Team Providers Care Microbiology Quality Control Technician Name Role Phone Hanna Ocasio MD Primary Care Provider [phone] Christian Villagomez PharmD Unavailable [phone] Reason for Visit * Reason Onset Date Comments Med Refill 01/30/2025 Encounter Details Date Type Department Care Team (Late st Contact Info) Description 01/30/2025 Refill [facility] [address] [place] [address] Hanna Ocasio MD [address] [place], [place] [phone] Social History Tobacco Use Types Packs/Day Years [...] encounter Miscellaneous Notes * Telephone Encounter - Any Ervin LPN - 01/30/2025 2:35 PM EST PCP VAC. Last seen 08/01/24. documented in this encounter Plan of Treatment Upcoming Encounters Date Type Department Care Team (Late st Contact Info) Description 02/15/2025 9:45 AM EST Office Visit [facility] [address] [place] [address] Hanna Ocasio MD [address] [place] [address] documented as of this encounter Goals Goal [...] documented as of this encounter Care Teams Microbiology Quality Control Technician Relationship Specialty Start Date End Date Hanna Ocasio MD [address] [place] [address] PCP - General Family Medicine 02/16/18 Christian Villagomez, KingsleyD [address] [place] [address] Pharmacist Internal Medicine 03/18/22 Jhonathan Engel High School Foreign Language TutorHand Stemmer 05/11/23 documented as of this encounter
--- OUTSIDE RECORDS SUMMARY | 2025-02-02 13:44 | XMS_ITS | Encounter Summary ---
Author Organization [employer] Address [address] 7[address] [place] [address] Care Team Providers Care Sr Account Executive Name Role Phone Hanna Ocasio MD Primary Care Provider [phone] Christian Villagomez PharmD Unavailable [phone] Reason for Referral * Consultation (Routine) - Closed Specialty Diagnoses / Procedures Referred By Contac t Referred To Contact Gastroenterology Diagnoses Other cirrhosis of liver (HCC) Hanna Ocasio MD [address] [place] [address] Phone: tel: fax: [facility] Referral ID Status Reason Start Date Expiration Date V isits Requested Visits Authorized [id number] Closed Specialty Services Required 09/12/2024 09/12/2025 6 6 Encounter Details Date Type Department Care Team (Late st Contact Info) Description 09/09/2024 Orders Only [facility] [address] [place], [place] [phone] Hanna Ocasio MD [address] [place], [place] [phone] Other cirrhosis of liver (CMS/HCC) (Primary Dx) [...] Description 02/15/2025 9:45 AM EST Office Visit [facility] [address] [place] [address] Hanna Ocasio MD [address] [place] [address] Scheduled Referrals Name Type Priority Associated Diagnoses [...] Visit Diagnoses Diagnosis Other cirrhosis of liver (HCC)- Primary documented in this encounter Additional Health Concerns Assessment Noted Time PHQ-9 Depression Total Score: 19 025 10:42 AM EDT documented as of this encounter Care Teams Sr Account Executive Relationship Specialty Start Date End Date Hanna Ocasio MD [address] [place] [address] PCP - General Family Medicine 02/16/18 Christian Villagomez PharmD [address] [place] [address] Pharmacist Internal Medicine 03/18/22 Jhonathan Engel Residential Insurance InspectorCorporate Travel Manager 05/11/23 documented as of this encounter
--- OUTSIDE RECORDS SUMMARY | 2025-02-02 13:44 | XMS_ITS | Encounter Summary ---
Author Organization [employer] Address [address] [facility] 7t [place] [address] Care Team Providers Care Mixer Lever Operator Name Role Phone Hanna Ocasio MD Primary Care Provider [phone] Christian Villagomez PharmD Unavailable [phone] Reason for Visit * Reason Onset Date Comments Results 03/06/2023 Encounter Details Date Type Department Care Team ([facility] st Contact Info) Description 03/06/2023 Telephone [facility] [address] [place], [place] [phone] Hanna Ocasio MD [address] [place], [place] [phone] Results Social History Tobacco Use Types Packs/Day [...] Miscellaneous Notes * Telephone Encounter - Wilfredo Patiño - 03/06/2023 8:13 AM EST TC from pt requesting call back regarding Results. Type of results: Lab Works Date when done: 02/26/2023 [place] [facility] [place] in this encounter Plan of Treatment Upcoming Encounters Date Type Department Care Team (Late st Contact Info) Description 02/15/2025 9:45 AM EST Office Visit [facility] [address] [place] [address] Hanna Ocasio MD [address] [place] [phone] documented as of this encounter Goals Goal Patient Goal Type Associated Problems Recent Progress Patient-Stated? Author Blood Pressure < 140/90 Blood Pressure 128/86(2024 3:50 PM EDT) No Christian Villagomez PharmD Hemoglobin A1c < 7 Result Component 5.8( 3:59 PM EDT) No Christian Villagomez PharmD documented as of this encounter Visit Diagnoses Not on filedocumented in this encounter Care Teams Mixer Lever Operator Relationship Specialty Start Date End Date Hanna Ocasio MD [address] [place] [phone] PCP - General Family Medicine 02/16/18 Christian Villagomez PharmD [address] [place] [phone] Pharmacist Internal Medicine 03/18/22 Jhonathan Engel Logging Equipment MechanicBinder Folder Operator 05/11/23 documented as of this encounter
--- OUTSIDE RECORDS SUMMARY | 2025-02-02 13:44 | XMS_ITS | Encounter Summary ---
Author Organization [employer] Address [address] [facility] 7t [place] [address] Care Team Providers Care Professor Of Finance Name Role Phone Hanna Ocasio MD Primary Care Provider [phone] Christian Villagomez PharmD Unavailable [phone] Reason for Referral * Consultation (Routine) - Closed Specialty Diagnoses / Procedures Referred By Contac t Referred To Contact Pharmacy Diagnoses Primary hypertension Type 2 diabetes mellitus with other specified complication, with long-term current use of insulin (HCC) Dyslipidemia Hanna Ocasio MD [address] [place] [address] Phone: tel: fax: Referral ID Status Reason Start Date Expiration Date V isits Requested Visits Authorized [id number] Closed Consult and Treat 11/25/2023 11/24/2024 6 6 Encounter Details Date Type Department Care Team (Late st Contact Info) Description 11/25/2023 Orders Only [facility] [address] [place], [place] [phone] Hanna Ocasio MD [address] [place] [address] Primary hypertension (Primary Dx); Type 2 diabetes [...] 11/16 2:27 PM EDT Valeria Xiao * How difficult have these problems made it for you to do your work, take care of things at home, or get along with other people? Answer Date of Assessment Author Very difficult 11/27/2023 2:27 PM EDT Tayla Xiao * Over the last 2 weeks, [...] erent things 3 11/27/2023 2:28 PM EDT Valeria Xiao Trouble relaxing 2 11/27/2023 2:28 PM EDT Valeria Shipley Being so restless that it is hard to sit still 2 11/27/2023 2:28 PM EDT Valeria Xiao Becoming easily annoyed or irritable 2 11/16 2:28 PM EDT Valeria Xiao Feeling afraid as if somethi ng [...] 02/15/2025 9:45 AM EST Office Visit [facility] [address] [place] [phone] Hanna Ocasio MD [address] [place] [phone] Scheduled Referrals Name Type Priority Associated Diagnoses Orde r Schedule Referral to Pharmacy CDTM Outpatient Referral Routine Primary hypertension Type 2 diabetes mellitus with other specified complication, with long-term current use of insulin ([facility]) Dyslipidemia Ordered: 11/25/2023 documented as of this [...] complication, with long-term current use of insulin ([facility]) Dyslipidemia Other and unspecified hyperlipidemia documented in this encounter Additional Health Concerns Assessment Noted Time PHQ-9 Depression Total Score: 0 06/03/19 24 9:56 AM EDT documented as of this encounter Care Teams Professor Of Finance Relationship Specialty Start Date End Date Hanna Ocasio MD [address] [place] [phone] PCP - General Family Medicine 02/16/18 Christian Villagomez PharmD [address] [place] [address] Pharmacist Internal Medicine 03/18/22 Jhonathan Engel Biofuels Plant Construction WorkerHide Or Skin Buffer 05/11/23 documented as of this encounter
--- OUTSIDE RECORDS SUMMARY | 2025-02-02 13:44 | XMS_ITS | Encounter Summary ---
Author Organization [employer] Address [address] 7t [place] [address] Care Team Providers Care Supplemental Manager Name Role Phone Hanna Ocasio MD Primary Care Provider [phone] Christian Villagomez PharmD Unavailable [phone] Reason for Visit * Reason Onset Date Comments triage 02/18/2022 Encounter Details Date Type Department Care Team ([facility] st Contact Info) Description 02/18/2022 Telephone [facility] [address] [place] [address] Hanna Ocasio MD [address] [place], [place] [phone] triage Social History Tobacco Use Types Packs/Day [...] not working properly. Pt recently traveled to [place]. Currently there and hs been without CPAP [...] BS or BP today. Pt currently in [place]. Pt will be back in 12 days. Pt advised to seek Care in UC or ER at [place] if sx worsen. IF any Cp or [...] Description 02/15/2025 9:45 AM EST Office Visit [address] [address] Hanna Ocasio MD [address] [place] [address] documented as of this encounter Visit Diagnoses Not on filedocumented in this encounter Care Teams Supplemental Manager Relationship Specialty Start Date End Date Hanna Ocasio MD [address] [place], [place] [phone] PCP - General Family Medicine 02/16/18 Christian Villagomez, KingsleyD [address] [place] [address] Pharmacist Internal Medicine 03/18/22 Jhonathan Engel Hspt TutorBehavioral Health Case Manager 05/11/23 documented as of this encounter
--- OUTSIDE RECORDS SUMMARY | 2025-02-02 13:44 | XMS_ITS | Encounter Summary ---
Author Organization [employer] Address [address] [place] [address] Care Team Providers Care Engineering And Scientific Programmer Name Role Phone Hanna Ocasio MD Primary Care Provider [phone] Christian Villagomez PharmD Unavailable [phone] Encounter Details Date Type Department Care Team (Late st Contact Info) Description 06/05/2023 Orders Only [facility] [address] [place], [place] [phone] Hanna Ocasio MD [address] [place], [place] [phone] Other cirrhosis of liver (CMS/HCC) (Primary Dx); [...] Description 02/15/2025 9:45 AM EST Office Visit [facility] [address] [place] [address] Hanna Ocasio MD [address] [place] [address] documented as of this encounter Goals Goal [...] Blood Count 5.1 4.8 - 10.8 X10*3/uL [facility] Red Blood Count 3.92(L) 4.60 - 5.80 X10*6/uL [facility] Hemoglobin 14.0 14.0 - 18.0 g/dl [facility] Hematocrit 40.0(L) 42.0 - 52.0 % [facility] Mean Corpuscular Volume 102.0(H) 80.0 - 98.0 fL [facility] Mean Corpuscular Hemoglobin 35.7(H) 27.0 - 33.0 pg [facility] Mean Corpuscular HGB Conc 35.0 31.0 - 36.0 g/dl [facility] Red Cell Distribution Width 14.8 11.0 - 16.0 % [facility] Platelet Count 86(L) 160 - 400 X10*3/uL [facility] Mean Platelet Volume 11.1 9.4 - 12.4 fL [facility] Neutrophils Percent Auto 55.6 45 - 73 % [facility] Imm Gran Pct Auto 0.2 0.0 - 0.4 % [facility] Lymphocytes Percent Auto 30.5 20 - 40 % [facility] Monocytes Percent Auto 10.5 2 - 11 % [facility] Eosinophils Percent Auto 2.8 0 - 4 % [facility] Basophils Percent Auto 0.4 0 - 2 % [facility] NRBC Pct Auto 0.0 0.0 - 0.2 /100WBC [facility] Neutrophils Absolute Auto 2.8 2.0 - 8.3 x10*3/uL [facility] Imm Gran Abs Auto 0.01 0.00 - 0.03 X10*3/uL [facility] Lymphocytes Absolute Auto 1.5 1.2 - 4.9 X10*3/uL [facility] Monocytes Absolute Auto 0.5 0.1 - 1.2 X10*3/uL [facility] Eosinophils Absolute Auto 0.1 0.0 - 0.4 X10*3/uL [facility] Basophils Absolute Auto 0.0 0.0 - 0.2 X10*3/uL [facility] NRBC Abs Auto 0.000 0.0 - 0.012 X10*3/uL [facility] Blood Venous blood specimen / Unknown 10/15/2023 9:55 AM EDT 10/15/2023 11:05 AM EDT us Hanna Ocasio MD LAB BLOOD ORDERABLES Final Resul t [facility] [address] [place], [place] [phone] * (ABNORMAL) Comprehensive Metabolic Panel (10/15/2023 9:55 AM EDT) Sodium 139 135 - 145 mmol/L [facility] Potassium 3.9 3.3 - 5.1 mmol/L [facility] Chloride 109(H) 96 - 108 mmol/L [facility] Carbon Dioxide 24 22 - 29 mmol/L [facility] Anion Gap 10(L) 12 - 20 [facility] Urea Nitrogen (BUN) 7(L) 9 - 16 mg/dL [facility] Creatinine, Serum 0.60 0.5 - 1.4 mg/dL [facility] Estimated Glomerular Filt Rate >60 [facility] Comment:NOTE: For -Am erican individuals, multiply the result by 1.210.Chronic Kidney Disease: Estimated GFR < 60 mL/min/1.28n9Jokpyc Kidney Disease: Estimated GFR < 15 mL/min/1.73m2 Glucose 107 60 - 115 mg/dL [facility] Calcium 8.5 8.4 - 10.2 mg/dL [facility] Bilirubin, Total 2.0(H) 0.0 - 1.0 mg/dL [facility] Aspartate Amino Transferase 67(H) 5 - 37 U/L [facility] Alanine Aminotransferase 37 0 - 40 U/L [facility] Total Protein 7.5 6.5 - 8.0 g/dL [facility] Albumin Level 2.9(L) 3.5 - 5.0 g/dL [facility] Alkaline Phosphatase 127(H) 39 - 117 U/L [facility] Blood Venous blood specimen / Unknown 10/15/2023 9:55 AM EDT 10/15/2023 11:05 AM EDT Hanna Ocasio MD LAB BLOOD ORDERABLES Final Resul t Performing Organization Address City/[facility]/ZIP Co de Phone Number [facility] [address] [place] [address] [phone] * Lipid Panel with Reflex to Direct LDL (10/15/2023 9:55 AM EDT) Triglycerides 61 <150 mg/dL [facility] Comment:Desirable Triglyceri de: less than 150 mg/dLBorderline High Triglyceride 150-199 mg/dLHigh Triglyceride: 200-499 mg/dLVery High Triglyceride: greater than or equal to 5OO mg/dL Cholesterol 150 <200 mg/dL [facility] Comment:Desirable Cholestero l: less than 200 mg/dLBorderline High Cholesterol: 200-239 mg/dLHigh Cholesterol: greater than 239 mg/dL LDL Cholesterol Calculated 84 <100 mg/dL [facility] Comment:Desirable LDL: less than 100 mg/dLNear Optimal/Above Optimal LDL: 110- 129 mg/dLBorderline High LDL: 130-159 mg/dLHigh LDL: 160-189 mg/dLVery High LDL: greater than or equal to 190 mg/dL HDL Cholesterol 54 >40 mg/dL [facility] Comment:Desirable HDL: great er than 40 mg/dL Note: This HDL assay may give artificially low results in patients with liver disease. Blood 10/15/2023 9:55 AM EDT 10/15/2023 11:05 AM EDT us Hanna Ocasio MD LAB BLOOD ORDERABLES Final Resul t [facility] [address] [place] [address] [phone] documented in this encounter Visit Diagnoses Diagnosis Other cirrhosis of liver (HCC)- Primary Dyslipidemia Other and unspecified hyperlipidemia documented in this encounter Additional Health Concerns Assessment Noted Time PHQ-9 Depression Total Score: 0 06/03/19 24 9:56 AM EDT documented as of this encounter Care Teams Engineering And Scientific Programmer Relationship Specialty Start Date End Date Hanna Ocasio MD [address] [place] [address] PCP - General Family Medicine 02/16/18 Christian Villagomez, KingsleyD [address] [place] [phone] Pharmacist Internal Medicine 03/18/22 Jhnoathan Engel Butter Production SupervisorFloat Builder 05/11/23 documented as of this encounter
--- OUTSIDE RECORDS SUMMARY | 2025-02-02 13:44 | XMS_ITS | Encounter Summary ---
Author Organization [employer] Address [address] [facility] 7t [place] [address] Care Team Providers Care Primary Care Provider Name Role Phone Hanna Ocasio MD Primary Care Provider [phone] Christian Villagomez PharmD Unavailable [phone] Reason for Referral * Consultation (Routine) - Closed Specialty Diagnoses / Procedures Referred By Contac t Referred To Contact Endocrinology Diagnoses Gynecomastia, male Other cirrhosis of liver (HCC) Hanna Ocasio MD [address] [place] [address] Phone: tel: fax: [facility] [address] [place], [place] Phone: tel: fax: Referral ID Status Reason Start Date Expiration Date V isits Requested Visits Authorized [id number] Closed Specialty Services Required 11/01/2024 11/01/2025 12 12 Encounter Details Date Type Department Care Team (Late st Contact Info) Description 11/01/2024 Orders Only [facility] [address] [place], [place] [phone] Hanna Ocasio MD [address] [place], [place] [phone] Gynecomastia, male (Primary Dx); Other cirrhosis of [...] 9:45 AM EST Office Visit [facility] [address] [place] [address] Hanna Ocasio MD [address] [place] [address] Scheduled Referrals Name Type Priority Associated Diagnoses [...] Hypertrophy of breast Other cirrhosis of liver (HCC) documented in this encounter Additional Health Concerns Assessment Noted Time PHQ-9 Depression Total Score: 19 025 10:42 AM EDT documented as of this encounter Care Teams Primary Care Provider Relationship Specialty Start Date End Date Hanna Ocasio MD [address] [place] [address] PCP - General Family Medicine 02/16/18 Christian Villagomez, KingsleyD [address] [place] [address] Pharmacist Internal Medicine 03/18/22 Jhonathan Engel Sales And Marketing SpecialistAutomation Technologist 05/11/23 documented as of this encounter
--- OUTSIDE RECORDS SUMMARY | 2025-02-02 13:44 | XMS_ITS | Clinical Summary ---
Author Organization [employer] Address [address] [facility] [address] [place] [address] Care Team Providers Care Server Name Role Phone Hanna Ocasio MD Primary Care Provider [phone] Christian Villagomez PharmD Unavailable [phone] Allergies Active Allergy Reactions Criticality Noted Date [...] tablet 3 023 Active Continuous Blood Gluc Airway Traffic Controller (FreeStyle Estela 2 Streeter) deviceIndication s:Type 2 diabetes mellitus with hyperglycemia, with long-term current use of insulin (HCC) Use as directed 1 each 023 Active beta carotene (vitamin A) 3 MG (94757 UT) capsule TAKE 1 CAPSULE BY MOUTH EVERY MORNING 023 Active Blood Glucose Monitoring Suppl (FreeStyle Afton Lite) w/Device kitIndications:T ype 2 diabetes mellitus with hyperglycemia (HCC) TEST BLOOD SUGAR THREE TIMES DAILY 1 kit Active Dexilant [address] capsule TAKE 1 CAPSULE BY MOUTH EVERY MORNING 90 capsule 3 024 Active tadalafil (Cialis) 20 MG tablet TAKE 1 TABLET BY MOUTH ON DEMAND 60 MINUTES BEFORE SEXUAL ACTIVITY ONCE PER DAY 024 Active cetirizine (ZyrTEC) 10 MG tablet TAKE 1 TABLET BY MOUTH AT BEDTIME 90 tablet 024 Active Continuous Glucose Sensor (FreeStyle Estela 2 Sensor) miscIndications: Type 2 diabetes mellitus with other specified complication, with long-term current use of insulin ([facility]) Scan every 8 hours as directed. Replace every 14 days. 1 each 024 Active cholecalciferol (Vitamin D-3) 50 MCG (2000 UT) capsule Take 1 capsule (50 mcg) by mouth Once per day. 90 capsule 3 12/30/19 25 3:32 PM EST 024 2025 Active TRUEplus Lancets 33G miscIndications: Type 2 diabetes mellitus with hyperglycemia (HCC) TEST BLOOD SUGAR FOUR TIMES DAILY 100 [...] hyperglycemia, with long-term current use of insulin ([facility]) INJECT 20 UNITS SUBCUTANEOUSLY EVERY DAY DIRECTED 4.5 mL 5 01/28/20 25 4:01 PM EST 025 Active rosuvastatin (Crestor) 5 MG tablet TAKE 1 TABLET BY MOUTH EVERY MORNING 90 tablet 3 025 Active Alcohol Swabs (Alcohol Prep) 70 % pads TEST BLOOD SUGAR TWICE DAILY 100 each 11 025 Active glucose blood (FreeStyle Precision Jordan Test) test stripIndications :Type 2 diabetes mellitus with hyperglycemia, with long-term current use of insulin ([facility]) USE DIRECTED TO CHECK BLOOD SUGAR 50 strip 5 025 Active Multiple Vitamin (multivitamin) tablet Take 1 tablet by mouth Once per day. 90 tablet 3 12/30/19 25 3:32 PM EST 025 Active Blood Pressure kit Check blood pressure twice a week or prn 1 kit 025 Active Continuous Glucose Sensor (FreeStyle Estela 2 Sensor) miscIndications: Type 2 diabetes mellitus with hyperglycemia, with long-term current use of insulin ([facility]) USE DIRECTED TO TEST BLOOD SUGAR CHANGE EVERY 14 DAYS 2 each 5 025 Active chlorthalidone (Hygroton) 25 MG tablet TAKE 1/2 TABLET BY MOUTH EVERY MORNING 45 tablet 3 025 Active metoprolol succinate XL (Toprol-XL) 50 MG 24 hr tablet TAKE 1 TABLET BY MOUTH EVERY MORNING 90 tablet 3 025 Active Continuous Glucose Sensor (FreeStyle Estela 2 Plus Sensor) misc 1 each every 15 days. Change sensor every 15 days 2 each 01/28/20 25 4:01 PM EST 025 Active cromolyn (Opticrom) 4 % ophthalmic solution INSTILL 1 DROP INTO THE AFFECTED EYE(S) 4 TIMES A DAY IN THE MORNING, AT NOON, IN THE EVENING, AND AT BEDTIME NEEDED FOR ITCHING AND REDNESS FOR UP TO 14 DAYS 10 mL 2 025 Active Trulicity 0.75 MG/0.5ML solution auto-injectorInd ications:Type 2 diabetes mellitus with other specified complication, with long-term current use of insulin ([facility]) INJECT ONE PEN (=0.75MG) SUBCUTANEOUSLY ONCE A WEEK DIRECTED 2 mL 3 01/28/20 25 4:01 PM EST 025 Active lidocaine (Lidoderm) 5 % patchIndications :Pain in left leg,Chronic low back pain, unspecified back pain laterality, unspecified whether sciatica present APPLY 1 PATCH TOPICALLY TO SKIN, LEAVE ON FOR 12 HOURS AND OFF FOR 12 HOURS DIRECTED 30 patch 3 025 Active montelukast (Singulair) 10 MG tablet TAKE 1 TABLET BY MOUTH EVERY EVENING 90 tablet 3 025 Active albuterol (Ventolin HFA) 108 (90 Base) MCG/ACT inhaler INHALE 2 PUFFS BY MOUTH EVERY 4 HOURS 18 g 1 025 Active Mometasone Furoate (Asmanex HFA) 100 MCG/ACT aerosol Inhale 1 Act (100 mcg) Once per day. 13 g 11 025 Active Ventolin HFA 108 (90 Base) MCG/ACT inhaler INHALE 2 PUFFS BY MOUTH EVERY 4 HOURS 18 g 1 023 2024 Discontinued(R eorder (will not trigger notification to Pharmacy)) montelukast (Singulair) 10 MG tablet TAKE 1 TABLET BY MOUTH EVERY EVENING 90 tablet 3 024 2024 Discontinued Active Problems Problem Noted Date Diagnosed Date Eyelid lesion 08/01/2024 Assessment & Plan (08/01/2024 4:49 PM EDT): - Avoid irritation - Referred to development editor Gynecomastia, male 08/01/2024 Assessment & Plan (08/01/2024 4:51 PM EDT): - Discussed that it is due to cirrhosis and history of obesity - Pt is interested in surgical reduction - Will refer to plastic surgeon for their recommendation Right knee pain 05/10/2024 Left knee pain 05/10/2024 Assessment & Plan (08/13/2024 5:36 PM EDT): - Following with [facility] orthopedics, last seen in April 2024 - Patient was unable to complete MRI study due to concern about CGM. He should be able to wear CGM. Erectile dysfunction 03/28/2024 Moderate episode of recurren t major depressive disorder (CMS/HCC) 11/27/2023 Assessment & Plan (08/13/2024 5:30 PM [...] Internal Cold handoff to [facility]/FP External OP therapy referral and OP psychiatry Referral Patient Self Plan Patient to utilize skills provided in intervention , [facility], Patient to engage in OP therapy , and Patient to reach out to HC as needed Spinal stenosis of lumbar region [...] call to schedule after his trip to [place]. - patient reports right side flank pain [...] call to schedule after his trip to [place]. Cirrhosis (CMS/HCC) 04/13/2022 Assessment & Plan (08/01/2024 4:45 PM EDT): -Followed by [facility] GI. Last seen on 01/09 -EGD 03/23/19 [...] Plan (06/03/2023 12:30 PM EDT): -Followed by [facility]. Last seen on 04/11 -EGD 03/23/19 [...] Plan (02/20/2023 5:55 PM EST): -Followed by [facility]. Last seen on 11/17/22 -EGD 03/23/19 [...] Plan (11/27/2022 9:26 AM EDT): -Followed by [facility]. Last seen on 11/17/22 -EGD 03/23/19 [...] Plan (10/29/2022 4:00 PM EDT): -Followed by [facility]. Last seen in Dec 2020 -EGD [...] Plan (05/29/2022 2:07 PM EDT): -Followed by [facility]. Last seen in Dec 2020 -EGD [...] Plan (04/13/2022 6:51 AM EST): -Followed by [facility]. Last seen in Dec 2020 -EGD [...] use of tramadol, lidoderm and gabapentin. -Reviewed TIMBER HAND agreement again -Use APAP 1 gm q8h [...] use of tramadol, lidoderm and gabapentin. -Reviewed TIMBER HAND agreement again -Use APAP 1 gm q8h prn, caution with cirrhosis Erectile dysfunction associa devon with type 2 diabetes mellitus 04/13/2022 Assessment & Plan (04/13/2022 6:55 AM EST): -Followed by urologist -Continue tadalafil as prescribed Benign prostatic hyperplasia with urinary obstru ction 04/13/2022 Assessment & Plan (02/20/2023 5:55 PM EST): -Following with Dr. Keith, [facility] urology -Continue tamsulosin as prescribed -Continue tadalafil as prescribed Assessment & Plan (05/29/2022 2:02 PM EDT): -Following with Dr. Keith, [facility] urology -Continue tamsulosin as prescribed -Continue tadalafil as prescribed Assessment & Plan (04/13/2022 6:56 AM EST): -Following with Dr. Keith, [facility] urology -Continue tamsulosin as prescribed -Continue tadalafil [...] No diabetic retinopathy. Referring to a new development editor -Last comprehensive foot exam: 07/10/21 -Last microalbumin [...] (Treatment threshold >=130/80) -Co-managed with pharmacist and loan clerk (Dr. Guzman, [facility], last seen in Feb 2022) -Hx hypotension [...] at goal today -Co-managed with pharmacist and loan clerk (Dr. Guzman, [facility], last seen in Feb 2022) -Hx hypotension [...] at goal today -Co-managed with pharmacist and loan clerk (Dr. Guzman, [facility], last seen in Feb 2022) -Hx hypotension [...] importance of keeping appointment with Christian Villagomez [facility], Pharm D. -Follow up in 3-6 mo, [...] daily -Hx of Hypotension and Syncope Following Print Color Matcher, Dr. Guzman, [facility] on 03/17/22 -Treatment Hx: amlodipine 5 mg [...] daily -Hx of Hypotension and Syncope Following Print Color Matcher, Dr. Guzman, [facility] on 03/17/22 -Treatment Hx: amlodipine 5 mg [...] daily -Hx of Hypotension and Syncope Following Print Color Matcher, Dr. Guzman, [facility] on 03/17/22 -Treatment Hx: amlodipine 5 mg [...] and will need tdap -I called today [facility] and spoke w and explained the case and need for [...] with Urologist Mood disorder 08/19/1999 11/27/2023 Encounters Date Type Department Care Team Description 02/02/2025 Orders Only [facility] External Provider, [facility] 02/02/2025 Telephone [facility] [address] [place] [address] Hanna Ocasio MD Nurse Triage 01/30/2025 Refill [facility] [address] [place], [place] [phone] Hanna Ocasio MD 01/30/2025 Refill [facility] [address] [place], [place] [phone] Hanna Ocasio MD 01/18/2025 Refill [facility] [address] [place] [address] Hanna Ocasio MD 12/16/2024 Refill [facility] [address] [place] [address] Hanna Ocasio MD Pain in left leg; Chronic low back pain, unspecified back pain laterality, unspecified whether sciatica present 12/14/2024 Refill [facility] [address] [place] [address] Hanna Ocasio MD Type 2 diabetes mellitus with other specified complication, with long-term current use of insulin (HCC) 12/11/2024 Refill [facility] [address] [place] [address] Hanna Ocasio MD 11/18/2024 Travel 11/16/2024 Refill [facility] [address] [place] [address] Anne-Marie Reyna RN 11/07/2024 Telephone [facility] [address] [place] [address] Hanna Ocasio MD chart prep 11/04/2024 Telephone [facility] [address] [place] [address] Hanna Ocasio MD from Last 3 Months Immunizations Immunization Administration [...] Description 02/15/2025 9:45 AM EST Office Visit [facility] [address] [place], [place] [phone] Hanna Ocasio MD [address] [place], [place] [phone] Health Maintenance Due Date Last Done Comments CT Colonography 1975 Colonoscopy 1975 FIT DNA/Cologuard 1975 FOBT 1975 Sigmoidoscopy 1975 Diabetes: Foot Exam 02/27/1986 Eye Exam 02/27/1986 Family Planning (PISQ) 02/27/1991 Colorectal Cancer Screening 05/02/2022 FIT 05/02/2022 05/02/2021 Dental Oral Exam 08/05/2022 02/03/2022 Dental Prophylaxis 10/18/2022 04/16/2022 Dental X-Ray: Bitewings 02/04/2023 02/03/2022 SDOH Screening 05/13/2024 05/14/2023 COVID-19 Vaccine ( season) 2024 01/05/2024, 02/19/2023, 01/29/2022, Additional history exists Influenza Vaccine (#1) 2024 , 02/19/2023, 01/29/2022, Additional history exists Diabetes: Hemoglobin A1C 11/01/2024 025, 01/07/2024, 10/15/2023, Additional history exists Dental X-Ray: Full Mouth 02/04/2025 02/03/2022 Depression Monitoring 02/07/2025 08/08/2024, 025 Alcohol/Substance Use Screening 08/01/2025 08/01/2024 Tobacco Screening 08/13/2025 08/13/2024 Diabetes: Urine Protein Screening 08/29/2025 08/29/2024, 08/29/2024, 01/07/2024, Additional history exists Lipid Panel 08/29/2025 08/29/2024, 12/18, 10/15/2023, Additional history exists Disability Screening 11/18/2025 11/18/2024 Zoster Vaccines (1 of 2) 02/27/2026 DTaP/Tdap/Td Vaccines (3 - Td or Tdap) 09/11/2032 09/11/2022, 11/12/2011, 02/26/2009 RSV Patients and Patients Aged 60 years or older (1 - 1-dose 75+ series) 02/27/2051 Hepatitis A Vaccines Completed 01/05/2019, 08/23/19 Hepatitis B Vaccines Completed 01/07/2022, 11/19/2015, 08/22/2014, Additional history exists Pneumococcal Vaccine: Pediatrics (0 to 5 Years) and At-Risk Patients (6 to 49) Years Completed 02/19/2023, 03/04/2011 HIV Screening Completed 08/29/2024, 12/18, 10/23/2022, Additional [...] VIEWS Routine 02/02/2025 10:5 1 AM EST HIGH SENSITIVITY TROPONIN I Routine 02/02/2025 10:48 AM EST LIPASE Routine 02/02/2025 10:48 AM EST MAGNESIUM Routine 02/02/2025 10:48 AM EST BASIC METABOLIC PANEL Routine 02/02/2025 10:48 AM EST HEPATIC FUNCTION PANEL Routine 10:48 AM EST CBC WITH AUTO DIFFERENTIAL Routine 02/02/2025 10:48 AM EST SARS COV2/INFLUENZA A/B AND RSV RNA QL NAAT Routine 02/02/2025 10:48 AM EST STREP A NUCLEIC ACID Routine 02/02/2025 10:48 AM EST HEPATITIS C AB W/REFL TO HCV RNA, QN, PCR Routine 08/29/2024 8:29 AM EDT Routine screening for STI (sexually transmitted infection) HIV 1/2 ANTIGEN/ANTIBODY, FOURTH GENERATION W/RFL Routine 08/29/2024 8:29 AM EDT Routine screening for STI (sexually transmitted infection) ALBUMIN, RANDOM URINE W/CREATININE Routine 08/29/2024 8:29 [...] Recently Relevant to Health Maintenance Results * XR Chest 2 Views (02/02/2025 10:51 AM EST) Anatomical Region Laterality Modality Chest Radiographic Shanda ging 02/02/2025 10:5 1 AM EST Narrative 02/02/2025 10:59 AM EST [place] [address] XRay Report Signed Patient: Christian Tan MR#: [id number] : 1975 Acct:[id number] Age/Sex: 49 / M ADM Date: 02/02/25 Loc: HO.ED Attending Dr: Ordering Physician: Jessica Kaur Date of Service: 02/02/25 Procedure(s): XR chest 2V Accession Number(s): [id number] cc: Hanna Ocasio MD; Jessica Kaur Reason [...] Tyrese Monge MD 02/02/2025 10:56 AM EST RP Dictated By: Tyrese Carlton MD Signed By: <Electronically signed by Tyrese Reyna MD in OV> 02/02/25 1056 DD/ 1051 TD/TT: 02/02/25 1052 Oil Well Engineer: Procedure Note Donotuseinterpreter, Image - 02/02/2025 [place] [address] XRay Report Signed Patient: Christian TanMR#: [id number] : 1975Acct:[id number] Age/Sex: 49 / MADM Date: 02/02/25 Loc: HO.ED Attending Dr: Ordering Physician: Jessica Kaur Date of Service: 02/02/25 Procedure(s): XR chest 2V Accession Number(s): [id number] cc: Hanna Ocasio MD; Jessica Kaur Reason [...] Tyrese Monge MD 02/02/2025 10:56 AM EST RP Dictated By: Tyrese Carlton MD Signed By: <Electronically signed by Tyrese Reyna MDin OV> 02/02/25 1056 DD/ 1051 TD/TT: 02/02/25 1052 Oil Well Engineer: [facility] External Provider IMG XR PROCEDURES Edited Result - Final * Strep A Nucleic Acid (02/02/2025 10:48 AM EST) IDNOW SERIAL# [id number] [facility] Strep A Nucleic Acid Negative Negative [facility] Comment:All test results mus t [...] GENERAL ORDERABLES Final Result Performing Organization Address [facility] Co de Phone Number [facility] [address] [place] [phone] * High Sensitivity Troponin I (02/02/2025 10:48 AM EST) Pathologist [facility] TROPONIN I HIGH SENSITIVITY <2.7 <3.5 - 35.0 ng/L [facility] Comment:The Fisher high sens itivity Troponin-I results should beused in conjunction with other diagnostic information suchas ECG, clinical observations and information, and patientsymptoms to aid in the diagnosis of [place]. 02/02/2025 10:4 8 AM EST 02/02/2025 10:59 AM EST Generic External Data Provider LAB BLOOD ORDERAB LES Final Result Performing Organization Address [facility] Co de Phone Number [facility] [address] [place] [phone] * SARS-CoV-2 RNA, Influenza A/B, and RSV RNA, Ql NAAT (02/02/2025 10:48 AM EST) Pathologist [facility] Influenza A PCR NEGATIVE Negative [facility] Influenza B PCR NEGATIVE Negative [facility] Resp Syncy Virus RNA Qual PCR NEGATIVE Negative [facility] SARS COV2 PCR NEGATIVE Negative [facility] Comment:All test results mus t be [...] use by authorized laboratories.Testing performed on the [employer] GeneXpert utilizingreal-time RT-PCR.All SARS CoV2 and positive influenza A/B results arereported to [facility]. 02/02/2025 10:4 8 AM EST 02/02/2025 10:59 AM EST us Generic External Data Provider LAB MICROBIOLOGY - GENERAL ORDERABLES Final Result [facility] [address] [place] [phone] [phone] * (ABNORMAL) CBC auto differential (02/02/2025 10:48 AM EST) White Blood Count 4.5(L) 4.8 - 10.8 X10*3/uL [facility] Red Blood Count 3.91(L) 4.60 - 5.80 X10*6/uL [facility] Hemoglobin 13.7(L) 14.0 - 18.0 g/dl [facility] Hematocrit 39.7(L) 42.0 - 52.0 % [facility] Mean Corpuscular Volume 101.5(H) 80.0 - 98.0 fL [facility] Mean Corpuscular Hemoglobin 35.0(H) 27.0 - 33.0 pg [facility] Mean Corpuscular HGB Conc 34.5 31.0 - 36.0 g/dl [facility] Red Cell Distribution Width 16.2(H) 11.0 - 16.0 % [facility] Platelet Count 73(L) 160 - 400 X10*3/uL [facility] Mean Platelet Volume 11.0 9.4 - 12.4 fL [facility] Neutrophils Percent Auto 44.3(L) 45 - 73 % [facility] Imm Gran Pct Auto 0.2 0.0 - 0.4 % [facility] Lymphocytes Percent Auto 37.5 20 - 40 % [facility] Monocytes Percent Auto 13.0(H) 2 - 11 % [facility] Eosinophils Percent Auto 4.6(H) 0 - 4 % [facility] Basophils Percent Auto 0.4 0 - 2 % [facility] NRBC Pct Auto 0.0 0.0 - 0.2 /100WBC [facility] Neutrophils Absolute Auto 2.0 2.0 - 8.3 x10*3/uL [facility] Imm Gran Abs Auto 0.01 0.00 - 0.03 X10*3/uL [facility] Lymphocytes Absolute Auto 1.7 1.2 - 4.9 X10*3/uL [facility] Monocytes Absolute Auto 0.6 0.1 - 1.2 X10*3/uL [facility] Eosinophils Absolute Auto 0.2 0.0 - 0.4 X10*3/uL [facility] Basophils Absolute Auto 0.0 0.0 - 0.2 X10*3/uL [facility] NRBC Abs Auto 0.000 0.0 - 0.012 X10*3/uL [facility] 02/02/2025 10:4 8 AM EST 02/02/2025 10:59 AM EST us Generic External Data Provider LAB BLOOD ORDERAB LES Final Result [facility] [address] [place] [phone] * Magnesium (02/02/2025 10:48 AM EST) Magnesium 1.7 1.6 - 2.6 mg/dL [facility] 02/02/2025 10:4 8 AM EST 02/02/2025 10:59 AM EST us Generic External Data Provider LAB BLOOD ORDERAB LES Final Result Performing Organization Address [facility] de Phone Number [facility] [address] [place] [phone] * Lipase (02/02/2025 10:48 AM EST) Lipase 37 8 - 78 U/L [facility] 02/02/2025 10:4 8 AM EST 02/02/2025 10:59 AM EST Generic External Data Provider LAB BLOOD ORDERAB LES Final Result Performing Organization Address [facility] de Phone Number [facility] [address] [place] [phone] * (ABNORMAL) Hepatic Function Panel (02/02/2025 10:48 AM EST) Bilirubin, Total 1.8(H) 0.0 - 1.0 mg/dL [facility] Bilirubin, Direct 1.0(H) 0.0 - 0.5 mg/dL [facility] Aspartate Amino Transferase 118(H) 5 - 37 U/L [facility] Alanine Aminotransferase 55(H) 0 - 40 U/L [facility] Total Protein 7.1 6.5 - 8.0 g/dL [facility] Albumin Level 2.6(L) 3.5 - 5.0 g/dL [facility] Alkaline Phosphatase 170(H) 39 - 117 U/L [facility] 02/02/2025 10:4 8 AM EST 02/02/2025 10:59 AM EST Generic External Data Provider LAB BLOOD ORDERAB LES Final Result Performing Organization Address [facility]/ZIP Co de Phone Number [facility] [address] [place] [phone] * (ABNORMAL) Basic Metabolic Panel (02/02/2025 10:48 AM EST) Sodium 137 135 - 145 mmol/L [facility] Potassium 3.6 3.3 - 5.1 mmol/L [facility] Chloride 108 96 - 108 mmol/L [facility] Carbon Dioxide 26 22 - 29 mmol/L [facility] Anion Gap 7(L) 12 - 20 [facility] Urea Nitrogen (BUN) 7(L) 9 - 16 mg/dL [facility] Creatinine, Serum 0.50 0.5 - 1.4 mg/dL [facility] Creatinine Clr Calc Pharmacy 214.3 [facility] Comment:eGFR (calculated fro m the MDRD study equation) and eCrCl(calculated from the Cockcroft-Gault equation) are based ondifferent parameters and may not yield comparable results.If eCrCl result is absurd, please check patient'sheight/weight. Estimated Glomerular Filt Rate >60 [facility] Comment:Chronic Kidney Disea se: Estimated GFR < 60 mL/min/1.82n9Rokolp Kidney Disease: Estimated GFR < 15 mL/min/1.73m2 Glucose 137(H) 60 - 115 mg/dL [facility] Calcium 7.7(L) 8.4 - 10.2 mg/dL [facility] 02/02/2025 10:4 8 AM EST 02/02/2025 10:59 AM EST us Generic External Data Provider LAB BLOOD ORDERAB LES Final Result Performing Organization Address [facility] Co de Phone Number [facility] [address] [place] [phone] [phone] * (ABNORMAL) Lipid Panel with Reflex to Direct LDL (08/29/2024 8:29 AM EDT) Triglycerides 81 <150 mg/dL [facility] Comment:Desirable Triglyceri de: less than 150 mg/dLBorderline High Triglyceride 150-199 mg/dLHigh Triglyceride: 200-499 mg/dLVery High Triglyceride: greater than or equal to 5OO mg/dL Cholesterol 182 <200 mg/dL [facility] Comment:Desirable Cholestero l: less than 200 mg/dLBorderline High Cholesterol: 200-239 mg/dLHigh Cholesterol: greater than 239 mg/dL LDL Cholesterol Calculated 116(H) <100 mg/dL [facility] Comment:Desirable LDL: less than 100 mg/dLNear Optimal/Above Optimal LDL: 110- 129 mg/dLBorderline High LDL: 130-159 mg/dLHigh LDL: 160-189 mg/dLVery High LDL: greater than or equal to 190 mg/dL HDL Cholesterol 50 >40 mg/dL [facility] Comment:Desirable HDL: great er than 40 mg/dL Note: This HDL assay may give artificially low results in patients with liver disease. Blood 08/29/2024 8:29 AM EDT 08/29/2024 11:32 AM EDT Hanna Ocasio MD LAB BLOOD ORDERABLES Final Resul t [facility] [address] [place] [phone] * Albumin, Random Urine W/Creatinine (08/29/2024 8:29 AM EDT) Creatinine, Urine 220.44 mg/dL [facility] Microalbumin Urine 14.0 mg/L [facility] Microalbum Creatinine Ratio Ur 6.3 <30 ug/mg cr [facility] Comment:Albumin/Creatinine R atio Reference Ranges: Normal: < 30 ug/mg creatinine Microalbuminuria: 30 - 300 ug/mg creatinineClinical Albuminuria: > 300 ug/mg creatinine Urine 08/29/2024 8:29 AM EDT 08/29/2024 11:20 AM EDT us Hanna Ocasio MD LAB URINE ORDERABLES Final Resul t Performing Organization Address [facility] Co de Phone Number [facility] [address] [place] [address] [phone] * Hepatitis C Antibody with Reflex to HCV, RNA, Quantitative, Real-Time PCR (08/29/2024 8:29 AM EDT) Hepatitis C Antibody Nonreactive Nonreactive [facility] Comment:Antibodies to HCV no t detected; does not exclude early acuteHCV infection. Venous blood specimen / Unknown 08/29/2024 8:29 AM EDT 08/29/2024 11:32 AM EDT us Hanna Ocasio MD LAB BLOOD ORDERABLES Final Resul t Performing Organization Address [facility] Co de Phone Number [facility] [address] [place] [phone] * HIV-1/2 Antigen and Antibodies, Fourth Generation, with Reflexes (08/29/2024 8:29 AM EDT) HIV AB/AG Nonreactive Nonreactive [facility] Comment:HIV-1 p24 Ag and/or HIV-1/HIV-2 Ab not detected.A test result that is nonreactive does not exclude thepossibility of exposure to or infection with HIV-1 and/orHIV-2. Nonreactive results in this assay for individualswith prior exposure to HIV-1 and/or HIV-2 may be due toantigen and antibody levels that are below the limit ofdetection of this assay.The [employer] HIV Ag/Ab Combo assay result andsupplemental assay results should be interpreted inconjunction with the patient's clinical presentation,history and other laboratory results. If the results areinconsistent with clinical evidence, additional testing issuggested to confirm the result. Venous blood specimen / Unknown 08/29/2024 8:29 AM EDT 08/29/2024 11:32 AM EDT us Hanna Ocasio MD LAB BLOOD ORDERABLES Final Resul t [facility] [address] [place] [phone] [phone] * POCT glycosylated hemoglobin (Hgb A1c) (08/01/2024 3:59 PM EDT) Hemoglobin A1C 5.8 4.0 - 6.0 % QC Media Lot # [id number] Lot# Expiration Date 427, Blood Capillary blood specimen / Unknown 08/01/2024 3:59 PM EDT Hanna Ocasio MD POINT OF CARE TEST ENTER/EDIT OR DERABLES Final Result from Last 3 Months or Most Recently Relevant to Health Maintenance Insurance # [address] [place] [address] [facility] C3 DENTAL-[facility] MEDICAID STAND ADULT Care Teams Server Relationship Specialty Start Date End Date Hanna Ocasio MD [address] [place] [address] PCP - General Family Medicine 02/16/18 Christian Villagomez, PharmD [address] [place] [address] Pharmacist Internal Medicine 03/18/22 Jhonathan Engel Machine GrainerManager Of Hospital 05/11/23
--- OUTSIDE RECORDS SUMMARY | 2025-02-02 13:44 | XMS_ITS | Encounter Summary ---
Author Organization [facility] Address [address] [facility] [address] [place] [address] Care Team Providers Care Marketing Assistant Retail Division Name Role Phone Hanna Ocasio MD Primary Care Provider [phone] Christian Villagomez PharmD Unavailable [phone] Reason for Referral * Imaging (Routine) - Closed Specialty Diagnoses / Procedures Referred By Contac t Referred To Contact Radiology Diagnoses Nausea Hypersalivation Procedures NM Gastric Emptying Solid Hanna Ocasio MD [address] [place] [address] Phone: tel: fax: [address] [address] Phone: tel: fax: Referral ID Status Reason Start Date Expiration Date Visits Re quested Visits Authorized [id number] Closed 06/20/2023 06/19/2024 3 3 Encounter Details Date Type Department Care Team (Late st Contact Info) Description 06/20/2023 Orders Only [facility] [address] [place], [place] [phone] Hanna Ocasio MD [address] [place], [place] [phone] Nausea; Hypersalivation Social History Tobacco Use Types [...] Description 02/15/2025 9:45 AM EST Office Visit [facility] [address] [place] [address] Hanna Ocasio MD [address] [place] [address] Scheduled Orders Name Type Priority Associated Diagnoses [...] documented as of this encounter Care Teams Marketing Assistant Retail Division Relationship Specialty Start Date End Date Hanna Ocasio MD [address] [place] [address] PCP - General Family Medicine 02/16/18 Christian Villagomez PharmD [address] [place] [address] Pharmacist Internal Medicine 03/18/22 Jhonathan Engel Bellows AssemblerDeputy Manager 05/11/23 documented as of this encounter
--- OUTSIDE RECORDS SUMMARY | 2025-02-02 13:44 | XMS_ITS | Encounter Summary ---
Author Organization [employer] Address [address] [place] [address] Care Team Providers Care Field Software Engineer Name Role Phone Hanna Ocasio MD Primary Care Provider [phone] Christian Villagomez PharmD Unavailable [phone] Reason for Visit * Reason Comments Med Refill Encounter Details Date Type Department Care Team ([facility] st Contact Info) Description 07/13/2023 Refill [facility] [address] [place], [place] [phone] Christian Villagomez, PharmD [address] [place], [place] [phone] Type 2 diabetes mellitus with hyperglycemia, with long-term current use of insulin ([facility]) Social History Tobacco Use Types Packs/Day Years [...] Description 02/15/2025 9:45 AM EST Office Visit [facility] [address] [place] [address] Hanna Ocasio MD [address] [place] [address] documented as of this encounter Goals Goal [...] with long-term current use of insulin (HCC) documented in this encounter Additional Health Concerns Assessment Noted Time PHQ-9 Depression Total Score: 0 06/03/19 24 9:56 AM EDT documented as of this encounter Care Teams Field Software Engineer Relationship Specialty Start Date End Date Hanna Ocasio MD [address] [place] [phone] PCP - General Family Medicine 02/16/18 Christian Villagomez, PharmD [address] [place] [phone] Pharmacist Internal Medicine 03/18/22 Jhonathan Engel General InternBuffer Operator 05/11/23 documented as of this encounter
--- OUTSIDE RECORDS SUMMARY | 2025-02-02 13:44 | XMS_ITS | Encounter Summary ---
Author Organization [employer] Address [address] [place] [address] Care Team Providers Care Professor Of Historical Theology Name Role Phone Hanna Ocasio MD Primary Care Provider Christian Villagomez PharmD Unavailable [phone] Reason for Visit * Reason Onset Date Comments Hospital Follow-up 04/29/2024 Encounter Details Date Type Department Care Team (Late st Contact Info) Description 04/29/2024 Telephone [facility] [address] [place], [place] [phone] Hanna Ocasio MD [address] [place], [place] [phone] Hospital Follow-up Social History Tobacco Use Types [...] from pt requesting a HDF appt. Hospital: [facility] Date of admission: 04/25 Discharge date: 04/28 Diagnosed: Gastrointestinal Endoscopy *Send message to [facility] Coordinators [phone] austrian documented in this encounter Plan of Treatment Upcoming Encounters Date Type Department Care Team ([facility] st Contact Info) Description 02/15/2025 9:45 AM EST Office Visit [facility] [address] [place] [address] Hanna Ocasio MD [address] [place] [address] documented as of this encounter Goals Goal [...] of this encounter Care Teams Professor Of Historical Theology Relationship Specialty Start Date End Date Hanna Ocasio MD [address] [place] [address] PCP - General Family Medicine 02/16/18 Christian Villagomez, PharmD [address] [place] [address] Pharmacist Internal Medicine 03/18/22 Jhonathan Engel Billboard Erector HelperCircuit Court Magistrate 05/11/23 documented as of this encounter
[2025-02-02 14:11] LABS: Troponin-I High Sensitivity < 2.7 ng/L (<3.5-35.0)
[2025-02-02] MEDS: iohexoL 350 MG/ML 100 ML INFUS..BTL IV (15:21)
[2025-02-02 17:05] VITALS: BP 142/77; PULSE 93; RESP 20; TEMP 36.8; O2SAT 98
[2025-02-02 18:32] LABS: Appearance Urine Clear; Glucose Urine UA 100 mg/dL (Negative); PH 7.0 (5.0-9.0); Specific Gravity - Urine >= 1.030 (1.005-1.025); UMIC TRIGGER UACC YES
[2025-02-02 19:04] VITALS: BP 142/76; PULSE 81; RESP 18; TEMP 37; O2SAT 97
--- NOTE | 2025-02-02 19:06 | PC.NURSE ---
Report taken from Eugenia GANT assumed care of pt at this time. A&Ox3 skin pwd respirations even unlabored. VSS. Reports continued SOB, SPo2 97-98% on RA no s/s distress. Denies pain. Awaiting MRI at 1930, aware of plan of care. Instructed to remove piercings and dexcom to right upper arm.
--- NOTE | 2025-02-02 19:26 | PC.NURSE ---
Pt off floor to MRI.
--- NOTE | 2025-02-02 21:12 | PC.NURSE ---
Pt returned from MRI, no change in physical assessment, offers no complaints. Awaiting results.
[2025-02-02 22:41] VITALS: BP 142/76; PULSE 81; RESP 18; TEMP 37; O2SAT 97
== END 2025-02-02 22:42 | disposition home or self-care (01) ==
PROVIDERS: Emergency Medicine; Physician Assistant Medical; Emergency Provider Emergency Medicine; PCP Family Medicine
DX: J20.9 Acute bronchitis, unspecified (principal); K74.60 Unspecified cirrhosis of liver; R05.9 Cough, unspecified; E11.9 Type 2 diabetes mellitus without complications; I10 Essential (primary) hypertension; Z03.818 Encounter for observation for suspected exposure to other biological agents ruled out; F17.210 Nicotine dependence, cigarettes, uncomplicated; Z79.899 Other long term (current) drug therapy
CPT/HCPCS: 36415; 71046; 74177; 74183; 76705; 80048; 80076; 81001; 82105; 83690; 83735; 84484; 85025; 87637; 87651; 93005; 94640; 96374; 96375; 99285; A9585; J2919; Q9967

== ENCOUNTER → 2025-02-02 10:28 | Outpatient (BNV) | payer MEDICAID, SELFPAY | PROVIDERS: Emergency Provider Emergency Medicine; PCP Family Medicine; Visit Provider Internal Medicine Cardiovascular Disease | DX: R07.9 Chest pain, unspecified (principal) | CPT/HCPCS: 93010 ==